=== PATIENT | male | born 1945 | race Caucasian/White ===

== ENCOUNTER → 2016-08-31 | Outpatient (CLI) | payer OTHER ==
[~2016-08-31] MED LIST: ALBUAER2 INH; ASPCH81X PO; CIPR0.3S4 OPR; CYM/30 PO; FINA5TAB PO; FURO-85 PO; GABA-113 PO; GLIM4TAB2 PO; INSDGI SC; LMC25 PO; METO25TA56 PO; ONGLYZA PO; PRAV80TA2 PO; PRED1SUS3 OPR; SERT-234 PO; SYMIN160 INH; TIOTCAP INH; [UNRECOGNIZED DRUG - OTHER]
[2016-08-31 13:50] LABS: BLOOD UREA NITROGEN 36 mg/dl (7-18); BUN/CREATININE RATIO 22.6 (10-20); CALCIUM 8.9 mg/dl (8.5-10.1); CARBON DIOXIDE 24 mmol/L (21-32); CHLORIDE 100 mmol/L (98-107); GLUCOSE 347 mg/dl (70-99); POTASSIUM 4.3 mmol/L (3.5-5.1); SODIUM 136 mmol/L (136-145)
[2016-08-31 13:59] LABS: BETA-HYDROXYBUTYRATE 0.95 mg/dL (0.2-2.81)
== END | disposition home or self-care (01) ==
LOC: C.LABMFLN 13:26
PROVIDERS: ATTEND Internal Medicine Cardiovascular Disease
DX: E11.9 Type 2 diabetes mellitus without complications (principal)

== ENCOUNTER → 2016-09-02 | Outpatient (CLI) | payer OTHER ==
[~2016-09-02] MED LIST changes: +REGADENOSON 0.4 MG/5 ML SYR ONE
== END | disposition home or self-care (01) ==
LOC: C.CTS 07:44
PROVIDERS: ATTEND Internal Medicine Cardiovascular Disease
DX: I71.2 Thoracic aortic aneurysm, without rupture (principal)

== ENCOUNTER → 2016-09-02 | Outpatient (CLI) | payer OTHER ==
[~2016-09-02] MED LIST changes: +OPTIRAY 320 IV PRN; -REGADENOSON 0.4 MG/5 ML SYR ONE
--- NOTE | 2016-09-02 11:49 | DIAGNOSTIC IMAGING REPORT ---
CT CHEST ANGIO WITH CONTRAST CT DOSE: 608.09 mGy.cm CLINICAL HISTORY: Ascending thoracic aortic aneurysm TECHNIQUE: The patient was scanned in a dynamic helical fashion during intravenous administration of 80 cc of Optiray 320. MIP imaging was performed. COMPARISON STUDY: None. FINDINGS: The thyroid was unremarkable in appearance. There are calcified mediastinal and hilar lymph nodes, likely postinflammatory. There is no evidence of pathologic axillary adenopathy. There are no pleural effusions. There are dependent atelectatic changes. There are subpleural cystic changes within the right lower lobe. There is bilateral lower lobe bronchial wall thickening, mucous plugging. There is a calcified left lower lobe granuloma. There is a 7 mm right lower lobe pulmonary nodule as visualized in image #169/361. There is a 3 mm right lower lobe pulmonary nodule as visualized on image #161/361. There is a 1 cm right lower lobe pulmonary nodule as visualized in image #155/261. There is a mixed solid and groundglass 22 mm pleural-based opacity within the right lower lobe best visualized in image #181/361. No lytic or blastic lesions are visualized. There are postsurgical changes of a midline sternotomy. There is cholelithiasis. There are coronary artery calcifications present. There is dilatation of the ascending thoracic aorta which measures 43 mm. No intimal flaps are visualized. There is subtle increased density anterior to the ascending thoracic aorta. This is not felt to represent a dissection. This is either postsurgical or related artifact. There is underlying pulmonary emphysema IMPRESSION: 1. Ascending thoracic aortic aneurysm measuring 43 mm in diameter. No dissection is visualized 2. Bilateral lower lobe bronchial wall thickening and mucous plugging 3. Multiple right lower lobe pulmonary nodules, including a 22 mm pleural-based opacity. As these may be inflammatory given the associated bronchial wall thickening and mucous plugging, a six-week follow-up CT scan subsequent to antibiotic therapy is recommended. Electronically signed by: Jayy Mckeon M.D. 09/02/2016 11:48 AM Dictated Date/Time: 09/02/2016 11:36 AM
--- NOTE | 2016-09-03 03:13 | MYOCARDIAL PERFUSION SCAN ---
PRIMARY CARE PHYSICIAN: Leandro Rodrigues MD ORDERING PHYSICIAN: Dr. Saba. TIME: 2122 p.m. PROCEDURES: 1. Myocardial perfusion study performed in multiple views/images. 2. Lexiscan ECG. INDICATIONS: 1. Multivessel coronary artery disease. 2. Dyspnea with exertion. CONSENT: Informed written consent was obtained. ELECTROCARDIOGRAM AND VITALS: Resting ECG demonstrated sinus rhythm with ventricular paced complexes. Lexiscan ECG demonstrated no significant ST changes. No arrhythmia. Maximum heart rate was 100 beats per minute, representing 66% maximum predicted heart rate. Resting blood pressure was 122/81 mmHg which was also the maximum. Minimum blood pressure was 91/67 mmHg. No significant symptoms were reported. PROCEDURAL DETAILS: For the stress portion of the study, Lexiscan 0.4 mg was intravenously administered over 10-15 seconds, followed by saline flush. This was followed by 33.2 mCi of technetium-99m Cardiolite injected intravenously at 9:15 a.m. on 09/02/2016. Thirty minutes following the injection, imaging of the heart was performed in multiple projections. For the rest portion of the study, 10.8 mCi of technetium-99m Cardiolite was injected intravenously at 7:30 a.m. on the same day. One hour following the injection, imaging of the heart was performed in the same projections. FINDINGS: Rotating raw imaging demonstrated no significant motion artifact. The heart size appeared normal. There was no significant lung uptake. Myocardial perfusion demonstrated a moderate-sized area of moderately reduced uptake involving the inferior, inferoseptal wall from base to distal LV which appeared to be fixed in post-stress and rest imaging. There was also moderately reduced uptake in the inferolateral wall from base to mid ventricle which was also fixed in post-stress and rest imaging. At the apex, there was a small area of moderately reduced uptake which was also fixed in post-stress and rest imaging. There was no significant reversible defect noted. Ejection fraction was 56%. There was no significant transient ischemic dilation. There appeared to be akinesis of the apex and hypokinesis of the inferior septum as well as inferior jeffries. IMPRESSION: 1. No significant ischemic changes suggested on pharmacologic myocardial perfusion study. 2. Study suggests prior RCA territory and apical (distal LAD) infarcts with the possibility of circumflex territory as well. These are represented by inferior, inferoseptal, inferolateral, and apical fixed defects as noted above. 3. Normal left ventricular systolic function with an ejection fraction of 56%. 4. Wall motion notable for akinesis of the apex, hypokinesis of the inferior septum and inferior wall. 5. No chest pain reported. 6. No arrhythmia. 7. Indeterminate Lexiscan ECG due to ventricular paced complexes.
== END | disposition home or self-care (01) ==
LOC: C.NUCL 06:56
PROVIDERS: ATTEND Internal Medicine Cardiovascular Disease
DX: I25.10 Atherosclerotic heart disease of native coronary artery without angina pectoris (principal); R06.00 Dyspnea, unspecified; I71.2 Thoracic aortic aneurysm, without rupture; R91.8 Other nonspecific abnormal finding of lung field

== ENCOUNTER → 2016-10-02 | Outpatient (CLI) | payer OTHER ==
--- NOTE | 2016-10-02 14:02 | DIAGNOSTIC IMAGING REPORT ---
CHEST CT WITH CONTRAST CT DOSE: 499.75 mGy.cm HISTORY: Pneumonia FOLLOW UP STUDY TECHNIQUE: Multiaxial CT images of the chest were performed following the intravenous administration of contrast. COMPARISON: 09/02/2016 FINDINGS: Considerable improvement in the appearance of the chest. Aneurysm of the a sending thoracic aorta is unchanged. Findings of a median sternotomy appear stable. Lung bases are now essentially clear with the infiltrative and nodular changes previously described essentially resolved. Minimal residual basilar atelectatic change. There is a small benign calcified granuloma left base unchanged as well. Lungs otherwise appear clear. There is no significant axillary adenopathy. IMPRESSION: 1. Chest has reverted to a near normal appearance. 2. Basilar atelectatic, infiltrative, and nodular changes have shown near complete resolution. 3. Lungs otherwise appear clear. 4. Stable mild aneurysmal distention a sending thoracic aorta. Electronically signed by: Jarocho Nickerson M.D. 10/02/2016 2:01 PM Dictated Date/Time: 10/02/2016 1:56 PM
== END | disposition home or self-care (01) ==
LOC: C.CTS 12:50
PROVIDERS: ATTEND Family Medicine
DX: J18.9 Pneumonia, unspecified organism (principal); R91.8 Other nonspecific abnormal finding of lung field

== ENCOUNTER → 2016-10-07 | Outpatient (CLI) | payer OTHER ==
[~2016-10-07] MED LIST changes: -OPTIRAY 320 IV PRN
[2016-10-07 14:14] LABS: BASO % 0.3 %; BASO ABS # 0.04 K/uL (0-0.2); COMPLETE YES; EOS % 0.4 %; IG% 0.3 %; LYMPH % 14.8 %; LYMPH ABS # 2.35 K/uL (1.2-3.4); MEAN CELL VOLUME 94.1 fL (80-100); MEAN CORPUSCULAR HEMOGLOBIN 32.7 pg (25-34); MEAN CORPUSCULAR HGB CONC 34.7 g/dl (32-36); MEAN PLATELET VOLUME 12.4 fL (7.4-10.4); MONO % 8.6 %; NEUT % 75.6 %; PLATELET COUNT 268 K/uL (130-400); RED BLOOD COUNT 4.04 M/uL (4.7-6.1); WHITE BLOOD COUNT 15.86 K/uL (4.8-10.8)
[2016-10-07 14:54] LABS: ALT/SGPT 44 U/L (12-78); BLOOD UREA NITROGEN 28 mg/dl (7-18); BUN/CREATININE RATIO 19.6 (10-20); CALCIUM 9.5 mg/dl (8.5-10.1); CARBON DIOXIDE 26 mmol/L (21-32); CHLORIDE 103 mmol/L (98-107); GLUCOSE 169 mg/dl (70-99); POTASSIUM 4.8 mmol/L (3.5-5.1); SODIUM 137 mmol/L (136-145)
[2016-10-07 15:07] LABS: ALKALINE PHOSPHATASE 98 U/L (45-117); AST/SGOT 29 U/L (15-37); TOTAL IRON BINDING CAPACITY 322 mcg/dl (250-450)
[2016-10-07 15:23] LABS: LYME DISEASE AB IGG NEG (NEG); LYME DISEASE AB IGM NEG (NEG)
[2016-10-07 16:01] LABS: ESTIMATED AVERAGE GLUCOSE 209 mg/dl; HA1C FLAG Normal (Normal)
== END | disposition home or self-care (01) ==
LOC: C.LAB1850 12:04
PROVIDERS: ATTEND Family Medicine
DX: E83.119 Hemochromatosis, unspecified (principal); E11.9 Type 2 diabetes mellitus without complications; D64.9 Anemia, unspecified; D72.829 Elevated white blood cell count, unspecified; R41.3 Other amnesia

== ENCOUNTER → 2016-10-30 | Outpatient (CLI) | payer OTHER ==
--- NOTE | 2016-10-30 09:59 | DIAGNOSTIC IMAGING REPORT ---
CT HEAD WITHOUT CONTRAST (CT) CLINICAL HISTORY: F09 Mild cognitive [id number] Cerebrovascular [id number] COMPARISON STUDY: 10/10/2015 TECHNIQUE: Axial CT of the brain is performed from the vertex to the skull base. IV contrast was not administered for this examination. CT DOSE: 687.98 mGy.cm FINDINGS: No intra or extra-axial mass lesions are visualized. There is no CT evidence of acute cortical infarction. There is no evidence of midline shift. There is no acute hemorrhage. No calvarial fractures are visualized. There are minimal white matter hypodensities likely on a small vessel basis. There is no evidence of pathologic ventricular dilatation. There is chronic mucosal disease involving the sphenoid. IMPRESSION: No acute intracranial findings Electronically signed by: Jayy Mckeon M.D. 10/30/2016 9:58 AM Dictated Date/Time: 10/30/2016 9:57 AM
--- NOTE | 2016-10-30 10:35 | DIAGNOSTIC IMAGING REPORT ---
ULTRASOUND OF THE CAROTID ARTERIES CLINICAL HISTORY: I67.9,HX TIA TRANSIENT ISCHEMIC ATTACK COMPARISON STUDY: None. TECHNIQUE: Real-time, grayscale, and color Doppler sonography of the carotid arteries was performed. Imaging reviewed in the transverse and longitudinal planes. NASCET criteria was utilized for stenosis calcification. FINDINGS: There is moderate calcific shadowing atherosclerotic plaque present bilaterally. The peak systolic velocity within the right internal carotid artery is 82 cm/sec. The systolic velocity ratio of right internal to common carotid artery is 1.1. The peak systolic velocity within the left internal carotid artery is 73 cm/sec. The systolic velocity ratio left internal to common carotid artery is 0.8. Antegrade flow is seen in the vertebral arteries. The external carotid arteries are patent. Blood pressure in the right arm measured 127 mm/Hg. Blood pressure in the left arm measured 123 mm/Hg. IMPRESSION: Moderate atheromatous change. No evidence of hemodynamically significant carotid stenosis. Electronically signed by: Jayy Mckeon M.D. 10/30/2016 10:33 AM Dictated Date/Time: 10/30/2016 10:32 AM
== END | disposition home or self-care (01) ==
LOC: C.CTS 09:28
PROVIDERS: ATTEND Psychiatry & Neurology Neurology
DX: I65.23 Occlusion and stenosis of bilateral carotid arteries (principal); F09 Unspecified mental disorder due to known physiological condition; Z86.73 Personal history of transient ischemic attack (TIA), and cerebral infarction without residual deficits

== ENCOUNTER → 2017-01-11 | Outpatient (CLI) | payer OTHER ==
[2017-01-13 06:48] LABS: ALBUMIN 4.3 G/DL (3.8-4.8); ALBUMIN % 36.62 %; ALPHA-2-GLOBULIN % 14.14 %; BETA GLOBULIN % 24.57 %; CREATININE UR 117 MG/DL (20-370); GAMMA GLOBULIN 1.6 G/DL (0.8-1.7); GAMMA GLOBULIN % 24.02 %; TOTAL PROTEIN 7.8 G/DL (6.2-8.3)
== END | disposition home or self-care (01) ==
LOC: C.LABMFLN 08:45
PROVIDERS: ATTEND Family Medicine
DX: E88.09 Other disorders of plasma-protein metabolism, not elsewhere classified (principal)

== ENCOUNTER → 2017-03-26 | Outpatient (CLI) | payer OTHER ==
[2017-03-26 13:20] LABS: BASO % 0.5 %; BASO ABS # 0.06 K/uL (0-0.2); COMPLETE YES; EOS % 1.5 %; IG% 0.3 %; LYMPH % 17.6 %; LYMPH ABS # 2.14 K/uL (1.2-3.4); MEAN CELL VOLUME 96.4 fL (80-100); MEAN CORPUSCULAR HGB CONC 33.1 g/dl (32-36); MEAN PLATELET VOLUME 11.9 fL (7.4-10.4); MONO % 11.8 %; NEUT % 68.3 %; PLATELET COUNT 280 K/uL (130-400); RED BLOOD COUNT 3.63 M/uL (4.7-6.1); WHITE BLOOD COUNT 12.15 K/uL (4.8-10.8)
[2017-03-26 13:34] LABS: ESTIMATED AVERAGE GLUCOSE 200 mg/dl; HA1C FLAG Normal (Normal)
[2017-03-26 13:40] LABS: ALT/SGPT 36 U/L (12-78); AST/SGOT 27 U/L (15-37); BLOOD UREA NITROGEN 34 mg/dl (7-18); BUN/CREATININE RATIO 24.4 (10-20); CALCIUM 8.4 mg/dl (8.5-10.1); CARBON DIOXIDE 25 mmol/L (21-32); CHLORIDE 106 mmol/L (98-107); GLUCOSE 141 mg/dl (70-99); POTASSIUM 4.4 mmol/L (3.5-5.1); SODIUM 139 mmol/L (136-145)
[2017-03-26 13:44] LABS: ALKALINE PHOSPHATASE 103 U/L (45-117); CHOLESTEROL 109 mg/dl (0-200); CHOLESTEROL/HDL RATIO 2.2; HDL CHOLESTEROL 49 mg/dl; LDL CHOLESTEROL CALCULATED 44 mg/dl; TRIGLYCERIDES 81 mg/dl (0-150); VERY LOW DENSITY LIPOPROT CALC 16 mg/dl
== END | disposition home or self-care (01) ==
LOC: C.LABMFLN 06:46
PROVIDERS: ATTEND Family Medicine
DX: I25.10 Atherosclerotic heart disease of native coronary artery without angina pectoris (principal); E11.9 Type 2 diabetes mellitus without complications

== ENCOUNTER → 2017-08-06 | Outpatient (CLI) | payer OTHER ==
[2017-08-06 12:53] LABS: BASO % 0.6 %; BASO ABS # 0.07 K/uL (0-0.2); EOS % 2.7 %; EOS ABS # 0.29 K/uL (0-0.5); HEMATOCRIT 35.9 % (42-52); HEMOGLOBIN 11.7 g/dL (14.0-18.0); IG# 0.03 K/uL (0.00-0.02); LYMPH % 29.5 %; MEAN CELL VOLUME 99.2 fL (80-100); MEAN CORPUSCULAR HEMOGLOBIN 32.3 pg (25-34); MEAN CORPUSCULAR HGB CONC 32.6 g/dl (32-36); MEAN PLATELET VOLUME 11.2 fL (7.4-10.4); MONO % 12.1 %; MONO ABS # 1.31 K/uL (0.11-0.59); NEUT % 54.8 %; NEUT ABS # 5.93 K/uL (1.4-6.5); NUCLEATED RED BLOOD CELL ABS 0.04 K/uL (0-0); PLATELET COUNT 260 K/uL (130-400); RED CELL DISTRIBUTION WIDTH CV 18.7 % (11.5-14.5); RED CELL DISTRIBUTION WIDTH SD 68.3 fL (36.4-46.3); WHITE BLOOD COUNT 10.83 K/uL (4.8-10.8)
[2017-08-06 13:01] LABS: HEMOGLOBIN A1C 8.4 % (4.5-5.6)
[2017-08-06 13:26] LABS: ALBUMIN 4.3 gm/dl (3.4-5.0); ALT/SGPT 42 U/L (12-78); BLOOD UREA NITROGEN 31 mg/dl (7-18); CALCIUM 8.9 mg/dl (8.5-10.1); CHOLESTEROL 101 mg/dl (0-200); CREATININE 1.41 mg/dl (0.60-1.40); GLUCOSE 144 mg/dl (70-99); POTASSIUM 4.6 mmol/L (3.5-5.1); SODIUM 138 mmol/L (136-145)
[2017-08-06 13:27] LABS: AST/SGOT 29 U/L (15-37)
[2017-08-06 13:30] LABS: ALKALINE PHOSPHATASE 114 U/L (45-117); CARBON DIOXIDE 26 mmol/L (21-32); LDL CHOLESTEROL CALCULATED 24 mg/dl; TOTAL PROTEIN 8.2 gm/dl (6.4-8.2)
== END | disposition home or self-care (01) ==
LOC: C.LABMFLN 06:55
PROVIDERS: ATTEND Family Medicine
DX: E78.5 Hyperlipidemia, unspecified (principal); E11.9 Type 2 diabetes mellitus without complications; I10 Essential (primary) hypertension; I25.10 Atherosclerotic heart disease of native coronary artery without angina pectoris

== ENCOUNTER → 2017-09-10 | Outpatient (CLI) | payer OTHER ==
[2017-09-10 12:31] LABS: BASO % 0.8 %; BASO ABS # 0.11 K/uL (0-0.2); EOS % 1.2 %; EOS ABS # 0.18 K/uL (0-0.5); HEMATOCRIT 38.4 % (42-52); HEMOGLOBIN 12.6 g/dL (14.0-18.0); IG# 0.04 K/uL (0.00-0.02); LYMPH ABS # 2.47 K/uL (1.2-3.4); MEAN CELL VOLUME 98.7 fL (80-100); MEAN CORPUSCULAR HEMOGLOBIN 32.4 pg (25-34); MEAN CORPUSCULAR HGB CONC 32.8 g/dl (32-36); MONO % 9.3 %; MONO ABS # 1.35 K/uL (0.11-0.59); NEUT % 71.4 %; NEUT ABS # 10.38 K/uL (1.4-6.5); NUCLEATED RED BLOOD CELL ABS 0.11 K/uL (0-0); PLATELET COUNT 334 K/uL (130-400); RED CELL DISTRIBUTION WIDTH CV 18.7 % (11.5-14.5); RED CELL DISTRIBUTION WIDTH SD 67.1 fL (36.4-46.3); WHITE BLOOD COUNT 14.53 K/uL (4.8-10.8)
[2017-09-10 13:16] LABS: BLOOD UREA NITROGEN 33 mg/dl (7-18)
== END | disposition home or self-care (01) ==
LOC: C.LABMFLN 08:41
PROVIDERS: ATTEND Family Medicine
DX: R61 Generalized hyperhidrosis (principal); I25.10 Atherosclerotic heart disease of native coronary artery without angina pectoris

== ENCOUNTER → 2017-10-04 | Outpatient (CLI) | payer OTHER ==
[~2017-10-04] MED LIST changes: +OPTIRAY 320 IV PRN
--- NOTE | 2017-10-04 10:11 | DIAGNOSTIC IMAGING REPORT ---
CHEST COMBO ANGIOGRAPHY CT DOSE: 1363.64 mGy.cm HISTORY: 72 years-old Male follow-up study in a patient with a minimal dilation of the descending thoracic aorta TECHNIQUE: Multiple CTA images of the chest were obtained both with and without the use of 116 ml Optiray 320. Coronal and sagittal MIPS were obtained from the axial data set and were submitted for review. A dose lowering technique was utilized adhering to the principles of ALARA. COMPARISON: CT chest 10/02/2016. FINDINGS: CTA: Moderate multichamber dilation of the heart with coronary arterial disease. Left pectoral pacer/AICD is noted with leads overlying the right atrium and right ventricle. Prior median sternotomy and CABG. Prosthetic aortic valve is also noted. Mild fusiform aneurysm dilation of the a sending thoracic aorta beginning distally to the sinotubular junction is redemonstrated measuring 4.3 x 4.3 cm, previously 4.3 x 4.3 cm. Moderate to extensive mixed plaquing is noted involving the thoracic aorta and proximal great vessels. The imaged great vessels appear to be patent. No thoracic dissection. There is no intramural hematoma identified on the noncontrast scan. Atherosclerotic plaquing at the origin of the celiac trunk causes 60% luminal narrowing, nicely seen on the coronal images. There is approximately 50% narrowing at the origin of the superior mesenteric artery. The opacified pulmonary arterial tree is unremarkable without evidence of pulmonary thromboembolic disease. CT CHEST: Mildly heterogeneous appearance of the thyroid without dominant thyroid nodule identified. Calcified mediastinal and hilar lymph nodes are compatible with prior granulomatous disease. Nonspecific mildly prominent left paratracheal lymph nodes measure up to 9 mm with an enlarged 12 mm subcarinal lymph node. Unchanged and likely reactive. There is no pneumothorax or pleural effusion. Mild subsegmental dependent bibasilar atelectasis. Mild subpleural cystic changes are noted within the lung bases and lung apices with mild centrilobular and paraseptal emphysematous changes of the lung apices. 10 x 6 mm ill-defined groundglass nodule of the lingula is seen on image 136 series 7 which appears to be new from prior study. Subpleural reticular opacities are noted bilaterally multilobar distribution suggesting areas of pleural-parenchymal scarring. Ill-defined 7 mm groundglass opacity is seen within left lower lobe on image 178 series 7. There is a calcified granuloma of the left lower lobe. Bibasilar bronchial wall thickening is noted with mild mucoid impaction of the right lower lobe. Scattered bronchovascular distribution of groundglass opacities are present within the basal right lower lobe. No lobar airspace consolidations identified. The central airways are patent. Partially imaged cholelithiasis. Fatty infiltration of the liver. No acute abnormality of the imaged upper abdomen. Mild bilateral gynecomastia. Bones appear intact. IMPRESSION: 1. Unchanged size and appearance of the fusiform aneurysmal dilation involving the ascending thoracic aorta, distal to the sinotubular junction measuring 4.3 x 4.3 cm. No aortic dissection or intramural hematoma. 2. Cardiomegaly with prior median sternotomy and CABG with prosthetic aortic valve. 3. Prior granulomatous disease. 4. Mild emphysema with bibasilar bronchial wall thickening and mild mucoid impaction is noted with a few subtle areas of patchy bibasilar groundglass opacities suggesting mild pneumonitis. Focal 10 mm groundglass opacity is noted within the lingula. Follow-up guidelines are below. 5. Cholelithiasis. Please refer to below summary of Fleischner criteria recommendations for follow-up of incidental CT nodules (Farideh Crump, Guidelines for management of small pulmonary nodules detected on CT scans: A statement from the Fleischner Society, Radiology 237: [phone].) Note: newly detected indeterminate nodule in persons 35 years of age or older. * Low risk patients: minimal or absent history of smoking and/or other known risk factors * high risk patients: history of smoking or of other known risk factors (e.g. first degree relative with lung cancer, or exposure to asbestos, radon, uranium) * if a nodule up to 8 mm is partly solid or is ground glass further follow-up is required after 24 months to exclude possible slow growing adenocarcinoma (ANTONY) SUBSOLID NODULES Multiple subsolid nodules * nodule size <6 mm - follow-up CT at 3-6 months, consider further follow-up at 2 and 4 years if stable * nodule size >=6 mm - follow-up CT at 3-6 months, subsequent management based on the most suspicious nodule(s) The above report was generated using voice recognition software. It may contain grammatical, syntax or spelling errors. Electronically signed by: Eliazar Wheeler M.D. 10/04/2017 10:10 AM Dictated Date/Time: 10/04/2017 9:55 AM
== END | disposition home or self-care (01) ==
LOC: C.CTS 09:31
PROVIDERS: ATTEND Internal Medicine Cardiovascular Disease
DX: I71.2 Thoracic aortic aneurysm, without rupture (principal); I51.7 Cardiomegaly; K80.20 Calculus of gallbladder without cholecystitis without obstruction

== ENCOUNTER → 2017-10-06 | Outpatient (CLI) | payer OTHER ==
--- NOTE | 2017-10-06 14:21 | DIAGNOSTIC IMAGING REPORT ---
ABD/PELVIS IV AND ORAL CONT CT DOSE: 836.02 mGy.cm HISTORY: Pain LEUKOCYTOSIS TECHNIQUE: Multiaxial CT images of the abdomen and pelvis were performed following the use of intravenous and oral contrast. A dose lowering technique was utilized adhering to the principles of ALARA. COMPARISON STUDY: None. FINDINGS: Minimal dependent bibasilar atelectatic change. Liver enhances uniformly. Several small gallstones are noted. Pancreas is unremarkable throughout. The adrenal glands are normal. Kidneys enhance uniformly. 1.5 cm cyst interpolar region left kidney. Bowel pattern is considered nonobstructive. No significant bowel wall thickening or pneumatosis. The appendix is normal. Bladder is midline. There are no contained calcifications. There is no free fluid within pelvic cul-de-sac. IMPRESSION: 1. Small left renal cyst. 2. Several small gallstones. 3. Otherwise negative abdomen and pelvis. The above report was generated using voice recognition software. It may contain grammatical, syntax or spelling errors. Electronically signed by: Jarocho Nickerson M.D. 10/06/2017 2:20 PM Dictated Date/Time: 10/06/2017 2:15 PM
== END | disposition home or self-care (01) ==
LOC: C.CTS 13:19
PROVIDERS: ATTEND Internal Medicine Hematology & Oncology
DX: D72.829 Elevated white blood cell count, unspecified (principal); R61 Generalized hyperhidrosis; N28.1 Cyst of kidney, acquired; K80.20 Calculus of gallbladder without cholecystitis without obstruction

== ENCOUNTER → 2017-12-15 | Outpatient (CLI) | payer OTHER ==
[~2017-12-15] MED LIST changes: -OPTIRAY 320 IV PRN
[2017-12-15 12:30] LABS: BASO % 0.4 %; BASO ABS # 0.04 K/uL (0-0.2); EOS % 1.4 %; EOS ABS # 0.16 K/uL (0-0.5); HEMATOCRIT 33.7 % (42-52); HEMOGLOBIN 11.1 g/dL (14.0-18.0); IG# 0.03 K/uL (0.00-0.02); LYMPH % 21.2 %; LYMPH ABS # 2.38 K/uL (1.2-3.4); MEAN CELL VOLUME 98.8 fL (80-100); MEAN CORPUSCULAR HEMOGLOBIN 32.6 pg (25-34); MEAN CORPUSCULAR HGB CONC 32.9 g/dl (32-36); MEAN PLATELET VOLUME 11.1 fL (7.4-10.4); MONO % 10.9 %; MONO ABS # 1.22 K/uL (0.11-0.59); NEUT % 65.8 %; PLATELET COUNT 284 K/uL (130-400); RED CELL DISTRIBUTION WIDTH CV 19.4 % (11.5-14.5); RED CELL DISTRIBUTION WIDTH SD 70.6 fL (36.4-46.3); WHITE BLOOD COUNT 11.23 K/uL (4.8-10.8)
[2017-12-15 12:56] LABS: ALBUMIN 4.1 gm/dl (3.4-5.0); BLOOD UREA NITROGEN 34 mg/dl (7-18); CALCIUM 8.8 mg/dl (8.5-10.1); CARBON DIOXIDE 27 mmol/L (21-32); CREATININE 1.49 mg/dl (0.60-1.40); GLUCOSE 118 mg/dl (70-99); POTASSIUM 4.9 mmol/L (3.5-5.1); SODIUM 138 mmol/L (136-145)
[2017-12-15 13:05] LABS: ALKALINE PHOSPHATASE 105 U/L (45-117); ALT/SGPT 38 U/L (12-78); AST/SGOT 37 U/L (15-37); CHOLESTEROL 96 mg/dl (0-200); LDL CHOLESTEROL CALCULATED 27 mg/dl; TOTAL PROTEIN 7.8 gm/dl (6.4-8.2); TRANSFERRIN 237 mg/dl (200-360)
[2017-12-15 13:28] LABS: HEMOGLOBIN A1C 8.6 % (4.5-5.6)
== END | disposition home or self-care (01) ==
LOC: C.LABMFLN 08:46
PROVIDERS: ATTEND Family Medicine
DX: D64.9 Anemia, unspecified (principal); N28.9 Disorder of kidney and ureter, unspecified; E11.65 Type 2 diabetes mellitus with hyperglycemia; I25.10 Atherosclerotic heart disease of native coronary artery without angina pectoris; E78.5 Hyperlipidemia, unspecified; D72.829 Elevated white blood cell count, unspecified

== ENCOUNTER → 2018-03-21 | Outpatient (CLI) | payer OTHER ==
[2018-03-21 12:41] LABS: BASO % 0.4 %; BASO ABS # 0.06 K/uL (0-0.2); EOS % 0.9 %; EOS ABS # 0.14 K/uL (0-0.5); HEMOGLOBIN 11.4 g/dL (14.0-18.0); IG# 0.05 K/uL (0.00-0.02); LYMPH % 10.1 %; LYMPH ABS # 1.63 K/uL (1.2-3.4); MEAN CORPUSCULAR HEMOGLOBIN 32.9 pg (25-34); MEAN CORPUSCULAR HGB CONC 33.5 g/dl (32-36); MEAN PLATELET VOLUME 11.4 fL (7.4-10.4); MONO % 7.2 %; MONO ABS # 1.16 K/uL (0.11-0.59); NEUT % 81.1 %; NEUT ABS # 13.06 K/uL (1.4-6.5); NUCLEATED RED BLOOD CELL ABS 0.04 K/uL (0-0); PLATELET COUNT 273 K/uL (130-400); RED CELL DISTRIBUTION WIDTH CV 19.2 % (11.5-14.5)
[2018-03-21 13:12] LABS: HEMOGLOBIN A1C 8.5 % (4.5-5.6)
[2018-03-21 13:17] LABS: BLOOD UREA NITROGEN 28 mg/dl (7-18); CALCIUM 8.5 mg/dl (8.5-10.1); CARBON DIOXIDE 27 mmol/L (21-32); GLUCOSE 284 mg/dl (70-99); POTASSIUM 4.7 mmol/L (3.5-5.1); SODIUM 134 mmol/L (136-145)
== END | disposition home or self-care (01) ==
LOC: C.LABMFLN 09:53
PROVIDERS: ATTEND Family Medicine
DX: Z12.5 Encounter for screening for malignant neoplasm of prostate (principal); E11.65 Type 2 diabetes mellitus with hyperglycemia; D72.829 Elevated white blood cell count, unspecified

== ENCOUNTER → 2018-03-29 | Outpatient (CLI) | payer OTHER ==
--- NOTE | 2018-03-29 11:56 | DIAGNOSTIC IMAGING REPORT ---
EXAMINATION: RENAL ULTRASOUND CLINICAL HISTORY: N28.9 Renal insufficiency N40.0 BPH (benign prostatic hyperplasia COMPARISON STUDY: CT scan performed September 2017 FINDINGS: The right kidney measures 10.3 cm. The left kidney measures 11.3 cm. There is no evidence of hydronephrosis. There are no renal masses. There is a small echogenic focus within the right kidney. This could indicate a tiny calculus or vascular reflector. There is a septated 18 mm lower pole left renal cyst. There is an equivocal punctate left renal calculus. No bladder abnormalities are visualized. Bilateral ureteral jets were visualized. There is a sludge-filled gallbladder. IMPRESSION : 1. Symmetric renal size and cortical thickness 2. No evidence of hydronephrosis 3. Septated 8 mm lower pole left renal cyst 4. Sludge-filled gallbladder Electronically signed by: Jayy Mckeon M.D. 03/29/2018 11:55 AM Dictated Date/Time: 03/29/2018 11:52 AM
== END | disposition home or self-care (01) ==
LOC: C.ULTR 10:46
PROVIDERS: ATTEND Family Medicine
DX: N40.0 Benign prostatic hyperplasia without lower urinary tract symptoms (principal); N28.1 Cyst of kidney, acquired

== ENCOUNTER 2018-10-21 22:36 | Inpatient (IN) ==
--- NOTE | 2018-10-21 23:15 | XRay Report ---
SINGLE VIEW CHEST CLINICAL HISTORY: Atypical chest pain. FINDINGS: An AP, portable, upright chest radiograph is correlated with chest CT dated 10/04/2017. The examination is degraded by portable technique and patient rotation. A 2-lead cardiac pacemaker is unc hanged in position and partially obscures the left upper chest. The patient is status post midline st ernotomy. The heart is enlarged and there is atherosclerotic calcification of the thoracic aorta. The pulmonary vasculature is noncongested. There is mild elevation of the left hemidiaphragm and bibasil ar atelectasis. No airspace consolidation or large pleural effusion is identified. Scattered calcifie d granulomas are similar to previous. No pneumothorax is seen. The skeletal structures are osteopenic . The bony thorax is grossly intact. IMPRESSION: 1. Cardiomegaly and cardiac pacemaker. There is no radiographic evidence of congestive failure. 2. No airspace consolidation or pleural effusion is identified. Electronically signed by: Leandro Napier M.D. 10/21/2018 11:14 PM
[2018-10-21 23:42] LABS: Basophils # (auto) 0.06 K/uL (0-0.2); Basophils % (auto) 0.3 %; Eosinophils % (auto) 0.5 %; Hematocrit (blood only) 32.1 % (42-52); Hemoglobin 10.6 g/dL (14.0-18.0); Immature Granulocytes # (auto) 0.06 K/uL (0.00-0.02); Immature Granulocytes % (auto) 0.3 %; Lymphocytes # (auto) 1.47 K/uL (1.2-3.4); Lymphocytes % (auto) 7.9 %; Mean Corpuscular Volume 96.1 fL (80-100); Mean Platelet Volume 10.7 fL (7.4-10.4); Monocytes # (auto) 0.96 K/uL (0.11-0.59); Monocytes % (auto) 5.2 %; Neutrophils # (auto) 15.97 K/uL (1.4-6.5); Neutrophils % (auto) 85.8 %; Platelet Count 252 K/uL (130-400); RDW Coefficient of Variation 18.8 % (11.5-14.5); RDW Standard Deviation 66.1 fL (36.4-46.3); Red Blood Count 3.34 M/uL (4.7-6.1); White Blood Count 18.62 K/uL (4.8-10.8)
[2018-10-22 00:01] LABS: Alanine Aminotransferase 96 U/L (12-78); Albumin Level 3.6 gm/dl (3.4-5.0); Aspartate Aminotransferase 128 U/L (15-37); BUN Creatinine Ratio 16.7 (10-20); Blood Urea Nitrogen 28 mg/dl (7-18); Carbon Dioxide 27 mmol/L (21-32); Chloride 105 mmol/L (98-107); Creatinine Clr Calc Pharmacy 45.8 ml/min; Est GFR (Non-African American) 39.7; Glucose 258 mg/dl (70-99); Potassium 4.7 mmol/L (3.5-5.1); Sodium 139 mmol/L (136-145)
[2018-10-22 00:03] LABS: Partial Thromboplastin Ratio 0.8; Partial Thromboplastin Time 22.3 Seconds (21.0-31.0); Prothrombin Time 10.7 Seconds (9.0-12.0)
[2018-10-22 00:06] LABS: Albumin Globulin Ratio 0.9 (0.9-2); Alkaline Phosphatase 123 U/L (45-117); Bilirubin,Total 1.2 mg/dl (0.2-1); Creatine Kinase 78 U/L (39-308); Creatine Kinase MB 1.5 ng/ml (0.5-3.6); Globulin 3.8 gm/dl (2.5-4.0); Total Protein 7.4 gm/dl (6.4-8.2); Troponin I < 0.015 ng/ml (0-0.045)
--- NOTE | 2018-10-22 00:15 | Emergency Department Note ---
Entered by Marychuy Pérez acting as a scribe for Dawson Mota DO History of Present Illness General Chief complaint: Chest Pain Stated complaint: CHEST PAIN Time Seen by Provider: 10/21/18 22:54 Source: patient and family Mode of arrival: EMS Limitations: no limitations History of Present Illness Onset (ago): hour(s) 2 Location: chest Radiation: non-radiation Pain Consistency: + now resolved Maximum Pain Intensity: 0 Current Pain Intensity: 7 Relieved By: + medication Exacerbated By: + none Associated symptoms: + diaphoresis; no shortness of breath Treatments prior to arrival: aspirin and other (Nitroglycerin) The patient is a 73 year old male who presents to the Emergency Room with complaints of chest pain. He rates his discomfort as a 7/10 in severity and states it felt like "heartburn". He called EMS and was given Nitro and 4 Aspirin in the field, which provided minimal relief. His notes he was diaphoretic when the pain started. He notes the pain resolved upon arrival to the ED. He admits to chronic breathing issues but does not think it was worse than usual this evening. The patient has a history of a previous AK, and notes he has [address] His Therapeutic Recreation Director is Dr. Saba with [facility]. He notes during his previous AK, he experienced jaw pain, but did also have heart burn in the days leading up to the episode. Home Medications Home Medications Medication Instructions Recorded Confirmed Type acetaminophen [Tylenol] 325 mg PO DIRECTED PRN 10/21/18 10/21/18 History albuterol sulfate [Proventil HFA] 2 puff INHALATION QID PRN 10/21/18 10/21/18 History aspirin 0.5 mg PO DAILY 10/21/18 10/21/18 History budesonide-formoterol [Symbicort] 2 puff INHALATION BID 10/21/18 10/22/18 History clindamycin HCl 600 mg PO DIRECTED 10/21/18 10/21/18 History epinephrine [EpiPen] 0.3 mg IM Q3H PRN 10/21/18 10/21/18 History finasteride 5 mg PO DAILY 10/21/18 10/21/18 History metoprolol tartrate 12.5 mg PO BID 10/21/18 10/21/18 History nitroglycerin [Nitrostat] 0.4 mg SUBLINGUAL DIRECTED PRN 10/21/18 10/21/18 History atorvastatin [Lipitor] 40 mg PO HS 10/22/18 10/22/18 History buspirone 30 mg PO TID 10/22/18 10/22/18 History donepezil 10 mg PO DAILY 10/22/18 10/22/18 History duloxetine 60 mg PO DAILY 10/22/18 10/22/18 History furosemide [Lasix] 20 mg PO DAILY 10/22/18 10/22/18 History gabapentin 300 mg PO QID 10/22/18 10/22/18 History glimepiride 4 mg PO BID 10/22/18 10/22/18 History hydrocortisone 1 applic TOPICAL HS PRN 10/22/18 10/22/18 History insulin glargine [Lantus Solostar 24 unit SUBCUT QAM 10/22/18 10/22/18 History U-100 Insulin] insulin glargine [Lantus Solostar 26 unit SUBCUT QPM 10/22/18 10/22/18 History U-100 Insulin] lamotrigine 200 mg PO HS 10/22/18 10/22/18 History memantine 5 mg PO BID 10/22/18 10/22/18 History paroxetine HCl 20 mg PO DAILY 10/22/18 10/22/18 History saxagliptin [Onglyza] 5 mg PO DAILY 10/22/18 10/22/18 History sildenafil 20 mg PO DIRECTED 10/22/18 10/22/18 History tiotropium bromide [Spiriva with 1 cap INHALATION DAILY 10/22/18 10/22/18 History HandiHaler] Allergies Allergy/AdvReac Type Severity Reaction Status Date / Time bee venom protein (honey bee) Allergy Unknown SWELLING Verified 10/21/18 23:50 codeine Allergy Unknown HALLUCINATI Verified 10/21/18 23:50 NG Penicillins Allergy Unknown UNKNOWN Verified 10/21/18 23:50 Sulfa (Sulfonamide Allergy Unknown "SULFA": Verified 10/21/18 23:50 Antibiotics) RASH Past Med/Surg History Medical History Myocardial infarction Pacemaker Diabetes mellitus COPD exacerbation Social History Feels Safe at Home: Yes Smoking Status: Former smoker Review of Systems See HPI for pertinent positives & negatives. and A total of 10 systems reviewed and were otherwise negative Physical Exam Vital Signs Vital Signs - 24 hr 10/21/18 22:43 Temperature 36.7 C Temperature Source Oral Sepsis Recent Fever Within 48 Hours No Sepsis New/Unexplained Change in Mental Status No Sepsis Action Taken by Nursing No Action Required Pulse Rate 96 H Pulse Rate [Finger] 96 H Respiratory Rate 16 Blood Pressure 111/67 Blood Pressure [Right Arm] 111/67 Blood Pressure Mean 81 Blood Pressure Mean [Right Arm] 81 Pulse Oximetry 94 Oxygen Delivery Method Room Air CONSTITUTIONAL/VITAL SIGNS: Reviewed / noted above. GENERAL: Non-toxic in appearance. INTEGUMENTARY: Warm, dry, and [place]. HEAD: Normocephalic. EYES: without scleral icterus or trauma. ENT/OROPHARYNX: clear and moist. LYMPHADENOPATHY/NECK: Is supple without lymphadenopathy or meningismus. RESPIRATORY: Lungs clear and equal. CARDIOVASCULAR: Regular rate and rhythm. GI/ABDOMEN: Soft and nontender. No organomegaly or pulsatile mass. No rebound or guarding. Normal bowel sounds. EXTREMITIES: Warm and well perfused. BACK: No CVA tenderness. NEUROLOGICAL: Intact without focal deficits. PSYCHIATRIC: normal affect. MUSCULOSKELETAL: Normally developed with good muscle tone. Course 2257: Past medical records reviewed. The patient was evaluated in room A11, and a complete history and physical examination were performed. 0009: I discussed the patients case with Becca Loomis [place] [facility]ist. The patient will be further evaluated. Consultations Consultation #1: I [facility] the [facility] The patient will be further evaluated. Time: 00:09 Medical Decision Making Differential Diagnosis Differential diagnoses includes but is not limited to acute coronary syndrome, myocardial infarction, pericarditis, pulmonary embolus, aortic dissection, pneumonia, pneumothorax, musculoskeletal, shingles, esophageal. Medical Records Attestation: I reviewed the patient's medical records. Home Medications Current Medication List: was personally reviewed by me Laboratory Data Attestation: I reviewed the patient's lab results. Result diagrams: 10/21/18 23:30 10/21/18 23:30 Lab Results 10/21/18 10/21/18 10/21/18 Range/Units 23:30 23:30 23:30 WBC 18.62 H (4.8-10.8) K/uL RBC 3.34 L (4.7-6.1) M/uL Hgb 10.6 L (14.0-18.0) g/dL Hct 32.1 L (42-52) % MCV 96.1 (80-100) fL MCH 31.7 (25-34) pg MCHC 33.0 (32-36) g/dL RDW Std Deviation 66.1 H (36.4-46.3) fL RDW Coeff of Linda 18.8 H (11.5-14.5) % Plt Count 252 (130-400) K/uL MPV 10.7 H (7.4-10.4) fL Immature Gran % (Auto) 0.3 % Neut % (Auto) 85.8 % Lymph % (Auto) 7.9 % [place] % (Auto) 5.2 % Eos % (Auto) 0.5 % Baso % (Auto) 0.3 % Immature Gran # (Auto) 0.06 H (0.00-0.02) K/uL Neut # (Auto) 15.97 H (1.4-6.5) K/uL Lymph # (Auto) 1.47 (1.2-3.4) K/uL [place] # (Auto) 0.96 H (0.11-0.59) K/uL Eos # (Auto) 0.10 (0-0.5) K/uL Baso # (Auto) 0.06 (0-0.2) K/uL PT 10.7 (9.0-12.0) Seconds INR 1.0 (0.9-1.1) APTT 22.3 (21.0-31.0) Seconds PTT Ratio 0.8 Sodium 139 (136-145) mmol/L Potassium 4.7 (3.5-5.1) mmol/L Chloride 105 (98-107) mmol/L Carbon Dioxide 27 (21-32) mmol/L Anion Gap 7.0 (3-11) BUN 28 H (7-18) mg/dl Creatinine 1.69 H (0.6-1.4) mg/dl Est Cr Clr Drug Dosing 45.8 ml/min Est GFR ( Amer) 46.0 Est GFR (Non-Af Amer) 39.7 BUN/Creatinine Ratio 16.7 (10-20) Glucose 258 H (70-99) mg/dl Calcium 8.0 L (8.5-10.1) mg/dl Total Bilirubin 1.2 H (0.2-1) mg/dl AST 128 H (15-37) U/L ALT 96 H (12-78) U/L Alkaline Phosphatase 123 H (45-117) U/L Total Creatine Kinase 78 (39-308) U/L CK-MB (CK-2) 1.5 (0.5-3.6) ng/ml CK/CKMB % Calc 1.9 (0-3.0) Troponin I < 0.015 (0-0.045) ng/ml Total Protein 7.4 (6.4-8.2) gm/dl Albumin 3.6 (3.4-5.0) gm/dl Globulin 3.8 (2.5-4.0) gm/dl Albumin/Globulin Ratio 0.9 (0.9-2) Lipase 189 (73-393) U/L Imaging Data Radiologist's Impression: Radiology results as stated below per my review and the radiologist's interpretation: SINGLE VIEW CHEST CLINICAL HISTORY: Atypical chest pain. FINDINGS: An AP, portable, upright chest radiograph is correlated with chest CT dated 10/04/2017. The examination is degraded by portable technique and patient rotation. A 2-lead cardiac pacemaker is unchanged in position and partially obscures the left upper chest. The patient is status post midline sternotomy. The heart is enlarged and there is atherosclerotic calcification of the thoracic aorta. The pulmonary vasculature is noncongested. There is mild elevation of the left hemidiaphragm and bibasilar atelectasis. No airspace consolidation or large pleural effusion is identified. Scattered calcified granulomas are similar to previous. No pneumothorax is seen. The skeletal structures are osteopenic. The bony thorax is grossly intact. IMPRESSION: 1. Cardiomegaly and cardiac pacemaker. There is no radiographic evidence of congestive failure. 2. No airspace consolidation or pleural effusion is identified. Electronically signed by: Leandro Napier M.D. 10/21/2018 11:14 PM ECG Data Attestation: I personally reviewed and interpreted this ECG as follows: Indication: chest pain Rate (beats per minute): 92 Rhythm: other (Ventricularly paced) Findings: no ST elevation Blood Pressure Blood Pressure Findings: Normal blood pressure Blood Pressure Disposition: did not require urgent referral MDM Narrative This is a 73-year-old male who presents to the ED with a chief complaint of chest discomfort mainly in the epigastric area described as indigestion. He had diaphoresis and nausea at the onset. It occurred about an hour and half prior to coming while he was sitting. The patient was given an aspirin as well as nitroglycerin on his way here. His symptoms resolved in route. He was pain-tate e when I saw him. His vital signs are stable. His physical exam was remarkable. An EKG shows a paced ventricular rhythm. Chest x-ray did not show acute process. CBC and chemistry panel was unremarkable. Troponin was negative. The patient remained asymptomatic during his ED stay. He was told the results. He was to be seen by the hospitalist for further inpatient evaluation and care. Impression & Plan Chest pain Discharge Plan Visit Data Chief Complaint: Chest Pain Stated Complaint: CHEST PAIN ED Provider: Dawson Mota Discharge Problem: Chest pain Patient Disposition: Being Evaluated by Hospitalist Condition: Good Forms Stand Alone Forms: Call Back Authorization, [facility] Prescriptions Prescriptions: No Action finasteride 5 mg Tablet 5 mg PO DAILY RF: 0 epinephrine [EpiPen] 0.3 mg/0.3 mL Auto-Injector 0.3 mg IM Q3H PRN (Reason: Allergy Symptoms) RF: 0 metoprolol tartrate 25 mg Tablet 12.5 mg PO BID RF: 0 acetaminophen [Tylenol] 325 mg Tablet 325 mg PO DIRECTED PRN (Reason: Pain) RF: 0 albuterol sulfate [Proventil HFA] 90 mcg/actuation Hfa Aerosol Inhaler 2 puff INHALATION QID PRN (Reason: sob) RF: 0 clindamycin HCl 300 mg Capsule 600 mg PO DIRECTED RF: 0 aspirin 81 mg Tablet,Delayed Release (Dr/Ec) 0.5 mg PO DAILY RF: 0 nitroglycerin [Nitrostat] 0.4 mg Tablet, Sublingual 0.4 mg Sublingual DIRECTED PRN (Reason: Chest Pain) RF: 0 Symbicort 160-4.5 mcg/actuation Hfa Aerosol Inhaler 2 puff INHALATION BID RF: 0 furosemide [Lasix] 20 mg Tablet 20 mg PO DAILY RF: 0 gabapentin 300 mg Capsule 300 mg PO QID RF: 0 duloxetine 60 mg Capsule,Delayed Release(Dr/Ec) 60 mg PO DAILY RF: 0 Spiriva with HandiHaler 18 mcg Capsule, W/Inhalation Device 1 cap INHALATION DAILY RF: 0 glimepiride 4 mg Tablet 4 mg PO BID RF: 0 Onglyza 5 mg Tablet 5 mg PO DAILY RF: 0 lamotrigine 200 mg Tablet 200 mg PO HS RF: 0 Lantus Solostar U-100 Insulin 100 unit/mL (3 mL) Insulin Pen 24 unit SUBCUT QAM RF: 0 Lantus Solostar U-100 Insulin 100 unit/mL (3 mL) Insulin Pen 26 unit SUBCUT QPM RF: 0 hydrocortisone 2.5 % Ointment 1 applic TOPICAL HS PRN (Reason: Itching) RF: 0 atorvastatin [Lipitor] 40 mg Tablet 40 mg PO HS RF: 0 donepezil 10 mg Tablet 10 mg PO DAILY RF: 0 paroxetine HCl 20 mg Tablet 20 mg PO DAILY RF: 0 buspirone 30 mg Tablet 30 mg PO TID RF: 0 memantine 5 mg Tablet 5 mg PO BID RF: 0 sildenafil 25 mg Tablet 20 mg PO DIRECTED RF: 0 Referrals Referrals: Leandro Rodrigues MD [Primary Care Provider] - The scribe's documentation has been prepared under my direction and personally reviewed by me in its entirety. I confirm that the note above accurately reflects all work, treatment, procedures, and medical decision making performed by me.
--- NOTE | 2018-10-22 01:24 | History & Physical Report ---
Date of Service October 22, 2018 Assessment & Plan (1) Abdominal pain: Patient describes epigastric and upper abdominal pain. Now resolved -mildly abnormal LFTs, see below -Maalox PRN -monitor (2) Abnormal LFTs: Check hepatitis panel, acetaminophien level, RUQUS, repeat LFTs (3) CAD (coronary artery disease): Continue ASA, Metoprolol Continue Lasix, currently appears to be euvolemic Trend troponins Nitro PRN Telemetry monitoring (4) Diabetes: Lantus 20u BID ISS Continue Gabapentin (5) Hypertension: Continue Metoprolol (6) COPD (chronic obstructive pulmonary disease): No respiratory distress. No wheeze -Conitnue Albuterol PRN -Continue Budesonide/Formoterol -Continue Tiotropium (7) BPH (benign prostatic hyperplasia): Continue Finasteride (8) Dementia: Continue Aricept Continue Namenda (9) Depression: Continue Buspirone and Duloxetine Continue Paxil History of Present Illness Chief Complaint: abdominal pain Primary Care Provider: Leandro Rodrigues MD Mr. Wright is pleasant 73yo male with multiple medical comordities to include CAD s/p stents x 7, most recently in 2001, DM, HTN, HLP, AAA on surveillance, COPD. Patient states that at appx 20:45 he experienced severe epigastric/upper abdominal discomfort. Pain 7/10 in severity, sharp in nature. Non-exertional/non-radiating/non-pleuritic, associated with nausea, bloating and diaphoresis. He took Tums/Antacids as well as ASA x 5 and Nitro. The pain lasted appx 1 hour and 15 minutes then resolved on its own. Patient has never had this pain before. Presently feels well with no additional complaints. Patient denies exertional chest pain. He is fairly active, enjoys hunting. He does report that his activities are limited by SOB. He has a diagnosis of COPD. States that he has baseline SOB and fairly severe CARTER that has been progressive x years. No acute worsening. He denies palpitations, orthopnea, edema, weight gain. Denies cough/wheeze/sputum. Patient follows with Cardiology. He sees Dr. Meraz for managment of his dual chamber pacer. Last seen 05 Aug 2018. He follows with Dr. Saba as well. Patient with history of multivessel CAD s/p multiple stents. 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 Routine cardiology followup has been unremarkable. Echo 08/16/18 with mildly dilated LV with normal EF, 50-55%, mild MR, bioprosthetic AV in place, appropriately functioning Myocardial perfusion study 02 Sep 2016 - no significant ischemic changes. Suggestion of prior RCA territory and apical infarcts and possibly circumflex territory as well. Normal LF size and function. Akinesis of apex, hypokinesis of inferior septum and inferior wall. Allergies Allergy/AdvReac Type Severity Reaction Status Date / Time bee venom protein (honey bee) Allergy Unknown SWELLING Verified 10/21/18 23:50 codeine Allergy Unknown HALLUCINATI Verified 10/21/18 23:50 NG Penicillins Allergy Unknown UNKNOWN Verified 10/21/18 23:50 Sulfa (Sulfonamide Allergy Unknown "SULFA": Verified 10/21/18 23:50 Antibiotics) RASH Home Medications Home Medications Medication Instructions Recorded Confirmed Type acetaminophen [Tylenol] 325 mg PO DIRECTED PRN 10/21/18 10/21/18 History albuterol sulfate [Proventil HFA] 2 puff INHALATION QID PRN 10/21/18 10/21/18 History aspirin 0.5 mg PO DAILY 10/21/18 10/21/18 History budesonide-formoterol [Symbicort] 2 puff INHALATION BID 10/21/18 10/22/18 History clindamycin HCl 600 mg PO DIRECTED 10/21/18 10/21/18 History epinephrine [EpiPen] 0.3 mg IM Q3H PRN 10/21/18 10/21/18 History finasteride 5 mg PO DAILY 10/21/18 10/21/18 History metoprolol tartrate 12.5 mg PO BID 10/21/18 10/21/18 History nitroglycerin [Nitrostat] 0.4 mg SUBLINGUAL DIRECTED PRN 10/21/18 10/21/18 History atorvastatin [Lipitor] 40 mg PO HS 10/22/18 10/22/18 History buspirone 30 mg PO TID 10/22/18 10/22/18 History donepezil 10 mg PO DAILY 10/22/18 10/22/18 History duloxetine 60 mg PO DAILY 10/22/18 10/22/18 History furosemide [Lasix] 20 mg PO DAILY 10/22/18 10/22/18 History gabapentin 300 mg PO QID 10/22/18 10/22/18 History glimepiride 4 mg PO BID 10/22/18 10/22/18 History hydrocortisone 1 applic TOPICAL HS PRN 10/22/18 10/22/18 History insulin glargine [Lantus Solostar 24 unit SUBCUT QAM 10/22/18 10/22/18 History U-100 Insulin] insulin glargine [Lantus Solostar 26 unit SUBCUT QPM 10/22/18 10/22/18 History U-100 Insulin] lamotrigine 200 mg PO HS 10/22/18 10/22/18 History memantine 5 mg PO BID 10/22/18 10/22/18 History paroxetine HCl 20 mg PO DAILY 10/22/18 10/22/18 History saxagliptin [Onglyza] 5 mg PO DAILY 10/22/18 10/22/18 History sildenafil 20 mg PO DIRECTED 10/22/18 10/22/18 History tiotropium bromide [Spiriva with 1 cap INHALATION DAILY 10/22/18 10/22/18 History HandiHaler] Past Med/Surg History Medical History Myocardial infarction Pacemaker Diabetes mellitus COPD exacerbation BPH (benign prostatic hyperplasia) CAD (coronary artery disease) CKD (chronic kidney disease) Dementia HTN (hypertension), benign TIA (transient ischemic attack) Surgical History S/P aortic valve replacement Status post cardiac pacemaker procedure Family History Other Family history non-contributory Social History Preferred Language: Belgian Communication Ability: Effective Beliefs That Will Affect Care: None Current Living Situation: Spouse Current Living Situation Comment: House Other Information That Helps Us Care for You: No Feels Safe at Home: Yes Safety Concerns: Feels Safe At This Time Smoking Status: Former smoker Hx Alcohol Use: No Hx Substance Use: No Review of Systems All systems reviewed & are unremarkable except as noted in HPI & below Physical Exam Vital Signs (Past 24 Hours): Last Vital Signs Temp 36.7 C 10/21/18 22:43 Pulse 96 H 10/21/18 22:43 Resp 16 10/21/18 22:43 BP 111/67 10/21/18 22:43 Pulse Ox 94 10/21/18 22:43 Physical Exam: General: patient resting comfortably, NAD, non-toxic in appearance, AA&O x 4 Skin: warm, dry, intact, no rashs, scattered bruises on UE and LE HEENT: NC/AT, PERRL, EOMI, anicteric sclera, conjunctiva without injection, external ear normal to inspection and nontender, nares patent, moist mucus membranes, dentition intact, no oropharyngeal lesions, neck supple, trachea midline, no LAD, no thyromegaly, no JVD Heart: +S1/S2, regular, 3/6 ONI at 2nd righ ICS with radiation across precordium Lungs: equal air entry bilaterally, no rales/rhonchi/wheezes Abd: +BS, hyperactive, soft, NT/ND, no masses/organomegaly/ascites Ext: warm, 2+ pulses in UE/LE bilaterally, no clubbing/cyanosis or edema Neuro: nonfocal, patient AA&O x 4, speech intact, no facial droop, moving all extremities on command with equal strength 5/5 Results & Data Laboratory Results Lab Results 10/21/18 10/21/18 10/21/18 Range/Units 23:30 23:30 23:30 WBC 18.62 H (4.8-10.8) K/uL RBC 3.34 L (4.7-6.1) M/uL Hgb 10.6 L (14.0-18.0) g/dL Hct 32.1 L (42-52) % MCV 96.1 (80-100) fL MCH 31.7 (25-34) pg MCHC 33.0 (32-36) g/dL RDW Std Deviation 66.1 H (36.4-46.3) fL RDW Coeff of Linda 18.8 H (11.5-14.5) % Plt Count 252 (130-400) K/uL MPV 10.7 H (7.4-10.4) fL Immature Gran % (Auto) 0.3 % Neut % (Auto) 85.8 % Lymph % (Auto) 7.9 % [place] % (Auto) 5.2 % Eos % (Auto) 0.5 % Baso % (Auto) 0.3 % Immature Gran # (Auto) 0.06 H (0.00-0.02) K/uL Neut # (Auto) 15.97 H (1.4-6.5) K/uL Lymph # (Auto) 1.47 (1.2-3.4) K/uL [place] # (Auto) 0.96 H (0.11-0.59) K/uL Eos # (Auto) 0.10 (0-0.5) K/uL Baso # (Auto) 0.06 (0-0.2) K/uL PT 10.7 (9.0-12.0) Seconds INR 1.0 (0.9-1.1) APTT 22.3 (21.0-31.0) Seconds PTT Ratio 0.8 Sodium 139 (136-145) mmol/L Potassium 4.7 (3.5-5.1) mmol/L Chloride 105 (98-107) mmol/L Carbon Dioxide 27 (21-32) mmol/L Anion Gap 7.0 (3-11) BUN 28 H (7-18) mg/dl Creatinine 1.69 H (0.6-1.4) mg/dl Est Cr Clr Drug Dosing 45.8 ml/min Est GFR ( Amer) 46.0 Est GFR (Non-Af Amer) 39.7 BUN/Creatinine Ratio 16.7 (10-20) Glucose 258 H (70-99) mg/dl Calcium 8.0 L (8.5-10.1) mg/dl Phosphorus 3.1 (2.5-4.9) mg/dl Magnesium 2.1 (1.8-2.4) mg/dl Total Bilirubin 1.2 H (0.2-1) mg/dl AST 128 H (15-37) U/L ALT 96 H (12-78) U/L Alkaline Phosphatase 123 H (45-117) U/L Total Creatine Kinase 78 (39-308) U/L CK-MB (CK-2) 1.5 (0.5-3.6) ng/ml CK/CKMB % Calc 1.9 (0-3.0) Troponin I < 0.015 (0-0.045) ng/ml Total Protein 7.4 (6.4-8.2) gm/dl Albumin 3.6 (3.4-5.0) gm/dl Globulin 3.8 (2.5-4.0) gm/dl Albumin/Globulin Ratio 0.9 (0.9-2) Lipase 189 (73-393) U/L Hep Bs Antigen (Neg) Hepatitis C Antibody (Neg) 10/21/18 Range/Units 23:30 WBC (4.8-10.8) K/uL RBC (4.7-6.1) M/uL Hgb (14.0-18.0) g/dL Hct (42-52) % MCV (80-100) fL MCH (25-34) pg MCHC (32-36) g/dL RDW Std Deviation (36.4-46.3) fL RDW Coeff of Linda (11.5-14.5) % Plt Count (130-400) K/uL MPV (7.4-10.4) fL Immature Gran % (Auto) % Neut % (Auto) % Lymph % (Auto) % [place] % (Auto) % Eos % (Auto) % Baso % (Auto) % Immature Gran # (Auto) (0.00-0.02) K/uL Neut # (Auto) (1.4-6.5) K/uL Lymph # (Auto) (1.2-3.4) K/uL [place] # (Auto) (0.11-0.59) K/uL Eos # (Auto) (0-0.5) K/uL Baso # (Auto) (0-0.2) K/uL PT (9.0-12.0) Seconds INR (0.9-1.1) APTT (21.0-31.0) Seconds PTT Ratio Sodium (136-145) mmol/L Potassium (3.5-5.1) mmol/L Chloride (98-107) mmol/L Carbon Dioxide (21-32) mmol/L Anion Gap (3-11) BUN (7-18) mg/dl Creatinine (0.6-1.4) mg/dl Est Cr Clr Drug Dosing ml/min Est GFR ( Amer) Est GFR (Non-Af Amer) BUN/Creatinine Ratio (10-20) Glucose (70-99) mg/dl Calcium (8.5-10.1) mg/dl Phosphorus (2.5-4.9) mg/dl Magnesium (1.8-2.4) mg/dl Total Bilirubin (0.2-1) mg/dl AST (15-37) U/L ALT (12-78) U/L Alkaline Phosphatase (45-117) U/L Total Creatine Kinase (39-308) U/L CK-MB (CK-2) (0.5-3.6) ng/ml CK/CKMB % Calc (0-3.0) Troponin I (0-0.045) ng/ml Total Protein (6.4-8.2) gm/dl Albumin (3.4-5.0) gm/dl Globulin (2.5-4.0) gm/dl Albumin/Globulin Ratio (0.9-2) Lipase (73-393) U/L Hep Bs Antigen Neg (Neg) Hepatitis C Antibody Neg (Neg) Diagnostic Findings SINGLE VIEW CHEST CLINICAL HISTORY: Atypical chest pain. FINDINGS: An AP, portable, upright chest radiograph is correlated with chest CT dated 10/04/2017. The examination is degraded by portable technique and patient rotation. A 2-lead cardiac pacemaker is unchanged in position and partially obscures the left upper chest. The patient is status post midline sternotomy. The heart is enlarged and there is atherosclerotic calcification of the thoracic aorta. The pulmonary vasculature is noncongested. There is mild elevation of the left hemidiaphragm and bibasilar atelectasis. No airspace consolidation or large pleural effusion is identified. Scattered calcified granulomas are similar to previous. No pneumothorax is seen. The skeletal structures are osteopenic. The bony thorax is grossly intact. IMPRESSION: 1. Cardiomegaly and cardiac pacemaker. There is no radiographic evidence of congestive failure. 2. No airspace consolidation or pleural effusion is identified. Electronically signed by: Leandro Napier M.D. 10/21/2018 11:14 PM Dictated: 10/21/182311 Transcribed: 10/21/182311 ECG Additional Comments: EKG a-sensed, V-paced at 92bpm, no acute ischemic changes. No prior studies for comparison Code Status & VTE Plan Code Status full VTE Prophylaxis Plan VTE Prophylaxis will be ordered: Yes Critical Care Time Critical Care Time: No
[2018-10-22] MEDS ORDERED: GLUCAGON FOR INJ 1 MG VIAL SQ PRN (02:29)
[2018-10-22] MEDS ORDERED: NITROGLYCERIN SL 0.4 MG/TAB TAB SL PRN (02:29)
[2018-10-22] MEDS ORDERED: ONDANSETRON INJ 2 MG/ML 2 ML VIAL IV PRN (02:29)
[2018-10-22] MEDS ORDERED: DEXTROSE 50% 50 ML SYRINGE IV PRN (02:29)
[2018-10-22] MEDS ORDERED: ALBUTEROL HFA 8 GM INHALER INH PRN (02:29)
[2018-10-22] MEDS ORDERED: ALUMINUM/MAGNESIUM SUSP 30 ML UDC PO PRN (02:29)
[2018-10-22] MEDS ORDERED: CARBOHYDRATES FOR HYPOGLYCEMIA PO PRN (02:29)
[2018-10-22] MEDS ORDERED: GLUCOSE 10 TABS/TUBE PO PRN (02:29)
[2018-10-22] MEDS ORDERED: GLUCOSE 40% GEL 15 GM TUBE PO PRN (02:29)
[2018-10-22 02:46] LABS: Magnesium 2.1 mg/dl (1.8-2.4); Phosphorus 3.1 mg/dl (2.5-4.9)
[2018-10-22 03:36] LABS: Hepatitis B Surface Antigen Neg (Neg)
[2018-10-22 04:00] LABS: Hepatitis C IgG 13Yrs+Old_Rflx Neg (Neg)
[2018-10-22 06:27] LABS: Basophils # (auto) 0.07 K/uL (0-0.2); Basophils % (auto) 0.6 %; Eosinophils # (auto) 0.12 K/uL (0-0.5); Hematocrit (blood only) 34.9 % (42-52); Hemoglobin 11.7 g/dL (14.0-18.0); Immature Granulocytes # (auto) 0.04 K/uL (0.00-0.02); Immature Granulocytes % (auto) 0.3 %; Lymphocytes # (auto) 1.89 K/uL (1.2-3.4); Mean Corpuscular Hgb Conc 33.5 g/dL (32-36); Mean Corpuscular Volume 95.6 fL (80-100); Mean Platelet Volume 10.7 fL (7.4-10.4); Monocytes % (auto) 6.3 %; Neutrophils # (auto) 9.68 K/uL (1.4-6.5); Neutrophils % (auto) 76.8 %; Nucleated RBC # (auto) 0.04 K/uL (0-0); Nucleated RBC % (auto) 0.3 %; Platelet Count 262 K/uL (130-400); RDW Coefficient of Variation 18.8 % (11.5-14.5); RDW Standard Deviation 66.2 fL (36.4-46.3); Red Blood Count 3.65 M/uL (4.7-6.1)
[2018-10-22] MEDS: FINASTERIDE 5 MG TAB PO SCH (08:32)
[2018-10-22] MEDS: DONEPEZIL HCL 10 MG TAB PO SCH (08:32)
[2018-10-22] MEDS: DULOXETINE HCL 60 MG CAP PO SCH (08:32)
[2018-10-22] MEDS: METOPROLOL TARTRATE 25 MG TAB PO SCH ×2 (08:32→20:03)
[2018-10-22] MEDS: BusPIRone 15 MG TAB PO SCH ×3 (08:33→20:03)
[2018-10-22] MEDS: FUROSEMIDE 20 MG TAB PO SCH (08:33)
[2018-10-22] MEDS: PARoxetine HCl 20 MG TAB PO SCH (08:33)
[2018-10-22] MEDS: GABAPENTIN 300 MG CAP PO SCH ×4 (08:33→20:03)
[2018-10-22] MEDS: MEMANTINE HCL 5 MG TAB PO SCH ×2 (08:33→20:03)
[2018-10-22] MEDS: ASPIRIN 81 MG ECTAB PO SCH (08:34)
[2018-10-22] MEDS: TIOTROPIUM BROMIDE 5 PUFF/90 MCG INH INH SCH (08:37)
[2018-10-22] MEDS: INSULIN ASPART 100 UNITS/ML 3 ML PEN SC SCH ×4 (08:39→21:50)
[2018-10-22] MEDS: BUDESONIDE/FORMOTEROL FUMARATE 160/4.5 60 PUFFS/INHALER INH SCH ×2 (08:41→20:04)
[2018-10-22] MEDS: INSULIN GLARGINE SOLOSTAR 100 UNITS/ML 3 ML PEN SQ SCH ×2 (08:41→21:49)
--- NOTE | 2018-10-22 10:04 | Ultrasound Report ---
ULTRASOUND RIGHT UPPER QUADRANT ABDOMEN CLINICAL HISTORY: Elevated hepatic transaminases. COMPARISON STUDY: Abdominal CT dated 10/06/2017. TECHNIQUE: Real-time, grayscale, and color flow sonography of the right upper quadrant of the abdomen was performed. Images are reviewed in the transverse and longitudinal planes. FINDINGS: Liver: The liver is enlarged and demonstrates heterogeneously increased echotexture consistent with h epatic steatosis. Fatty sparing is seen adjacent to gallbladder fossa. There is no intrahepatic bilia ry ductal dilatation. The main portal vein is patent. Gallbladder: There are small shadowing gallstones and biliary sludge. The gallbladder wall is top nor mal in thickness measuring up to 4 mm. There is trace pericholecystic fluid. A sonographic Matthews's s ign is reportedly absent. The common bile duct measures up to 0.6 cm in diameter. Pancreas: Bowel visualized due to overlying bowel gas. Right kidney: Survey images of the right kidney demonstrate mild cortical atrophy. There is no hydron ephrosis. Ascites: None. IMPRESSION: 1. Cholelithiasis and biliary sludge. The gallbladder is mildly distended, the gallbladder wall is to p normal in thickness, and there is trace pericholecystic fluid. Findings are equivocal for acute cho lecystitis which is not excluded. A sonographic Matthews's sign is reportedly absent. Clinical correlat ion will be required. If there is clinical concern for acute cholecystitis a nuclear hepatobiliary sc an could be considered. 2. Hepatomegaly and hepatic steatosis. Electronically signed by: Leandro Napier M.D. 10/22/2018 10:02 AM
[2018-10-22 11:39] LABS: BUN Creatinine Ratio 21.3 (10-20); Calcium 8.7 mg/dl (8.5-10.1); Creatinine Clr Calc Pharmacy 56.2 ml/min; Est GFR (African American) 59.8; Est GFR (Non-African American) 51.6; Potassium 4.7 mmol/L (3.5-5.1)
[2018-10-22 11:45] LABS: Bilirubin,Total 2.9 mg/dl (0.2-1); Globulin 4.2 gm/dl (2.5-4.0); Total Protein 8.2 gm/dl (6.4-8.2)
[2018-10-22] MEDS: AZTREONAM 1,000 MG in DEXTROSE 5% 100 ML IV SCH ×2 (14:55→21:49)
--- NOTE | 2018-10-22 15:16 | Family Medicine Progress Note ---
Date of Service October 22, 2018 Assessment & Plan (1) Abdominal pain: 73yo gentleman with a complex cardiac PMHx including placement of a pacemaker who presented with epigastric pain and was found to have increased LFTs and an equivocal right upper quadrant US for acute cholecystitis. Epigastric/Abdominal Pain secondary to cholecystitis -Viral Hep Panel- neg for Hep B surface antigen and HCV. Acetaminophen level couldn't be obtained. -RUQ US shows some fluid around gallbladder, gallstones with sludge. Read as equivocal. Further testing recommended. -Pt afebrile but in combination with leukocytosis and significantly increased liver enzymes, -Surgery consulted - MRCP proposed by Surgery consult placed. However, pt has pacemaker. Will continue to follow Gen Surg recs. -Pt placed on Aztreonam CAD -Trops negative, -Cariology consulted -continue home ASA, lasix, metoprolol Diabetes -ISS, continue home gabapentin for neuropathic pain HTN -continue home metoprolol COPD -continue home Albuterol prn, budesonide/fomoterol, tiotropium BPH: continue home finasteride Dementia -continue home Aricept, Namenda Depression -continue home buspirone, duloxetine, paxil DVT Proph: SCDs Code Status: Full code Supervising Physician Co-Signing Physician Notes Resident Physician Supervision Note: I independently interviewed and examined the patient and verified the dye history and physical, reviewed labs and image studies, discussed the case with the resident Dr. Blanc and agree with the findings and care plan. Subjective Pt states he feels fine was AAOx3, stated that he had no N/V, no decreased appetite or abdominal pain especially after a meal. States he would like to be discharged. Son and were at bedside and state that he has mild dementia and PTSD from the [place] war and was exposed to Agent [place]. Son is a customs entry writer and teaches emergency medicine classes. Review of Systems All systems reviewed & are unremarkable except as noted in HPI & below Physical Exam Vital Signs (Past 24 Hours): Last Vital Signs Temp 36.5 C 10/22/18 11:32 Pulse 89 10/22/18 11:32 Resp 20 10/22/18 11:32 BP 131/77 10/22/18 11:32 Pulse Ox 95 10/22/18 11:32 General: Alert, orientedx3. No acute distress HEENT: NC/AT, PERRLA, EOMI, oropharynx moist. Chest: Nontender to palpation in epigastric region. CV: RRR Resp: Breath sounds clear bilaterally, no increased effort of breathing Abdomen: BS+. Soft, nontender, nondistended. No guarding. No organomegaly appreciated. Extremities: No edema. Results & Data Laboratory Results Laboratory Results - last 24 hr 10/21/18 10/21/18 10/21/18 23:30 23:30 23:30 WBC 18.62 H RBC 3.34 L Hgb 10.6 L Hct 32.1 L MCV 96.1 MCH 31.7 MCHC 33.0 RDW Std Deviation 66.1 H RDW Coeff of Linda 18.8 H Plt Count 252 MPV 10.7 H Immature Gran % (Auto) 0.3 Neut % (Auto) 85.8 Lymph % (Auto) 7.9 [place] % (Auto) 5.2 Eos % (Auto) 0.5 Baso % (Auto) 0.3 Immature Gran # (Auto) 0.06 H Neut # (Auto) 15.97 H Lymph # (Auto) 1.47 [place] # (Auto) 0.96 H Eos # (Auto) 0.10 Baso # (Auto) 0.06 Absolute Nucleated RBC Nucleated RBC % (auto) PT 10.7 INR 1.0 APTT 22.3 PTT Ratio 0.8 Sodium 139 Potassium 4.7 Chloride 105 Carbon Dioxide 27 Anion Gap 7.0 BUN 28 H Creatinine 1.69 H Est Cr Clr Drug Dosing 45.8 Est GFR ( Amer) 46.0 Est GFR (Non-Af Amer) 39.7 BUN/Creatinine Ratio 16.7 Glucose 258 H POC Glucose Calcium 8.0 L Phosphorus 3.1 Magnesium 2.1 Total Bilirubin 1.2 H AST 128 H ALT 96 H Alkaline Phosphatase 123 H Total Creatine Kinase 78 CK-MB (CK-2) 1.5 CK/CKMB % Calc 1.9 Troponin I < 0.015 Total Protein 7.4 Albumin 3.6 Globulin 3.8 Albumin/Globulin Ratio 0.9 Lipase 189 Acetaminophen Hep Bs Antigen Hepatitis C Antibody 10/21/18 10/22/18 10/22/18 23:30 06:07 06:07 WBC 12.60 H RBC 3.65 L Hgb 11.7 L Hct 34.9 L MCV 95.6 MCH 32.1 MCHC 33.5 RDW Std Deviation 66.2 H RDW Coeff of Linda 18.8 H Plt Count 262 MPV 10.7 H Immature Gran % (Auto) 0.3 Neut % (Auto) 76.8 Lymph % (Auto) 15.0 [place] % (Auto) 6.3 Eos % (Auto) 1.0 Baso % (Auto) 0.6 Immature Gran # (Auto) 0.04 H Neut # (Auto) 9.68 H Lymph # (Auto) 1.89 [place] # (Auto) 0.80 H Eos # (Auto) 0.12 Baso # (Auto) 0.07 Absolute Nucleated RBC 0.04 H Nucleated RBC % (auto) 0.3 PT INR APTT PTT Ratio Sodium Potassium Chloride Carbon Dioxide Anion Gap BUN Creatinine Est Cr Clr Drug Dosing Est GFR ( Amer) Est GFR (Non-Af Amer) BUN/Creatinine Ratio Glucose POC Glucose Calcium Phosphorus Magnesium Total Bilirubin AST ALT Alkaline Phosphatase Total Creatine Kinase CK-MB (CK-2) CK/CKMB % Calc Troponin I Total Protein Albumin Globulin Albumin/Globulin Ratio Lipase Acetaminophen Hep Bs Antigen Neg Hepatitis C Antibody Neg 10/22/18 10/22/18 10/22/18 06:07 06:11 07:48 WBC RBC Hgb Hct MCV MCH MCHC RDW Std Deviation RDW Coeff of Linda Plt Count MPV Immature Gran % (Auto) Neut % (Auto) Lymph % (Auto) [place] % (Auto) Eos % (Auto) Baso % (Auto) Immature Gran # (Auto) Neut # (Auto) Lymph # (Auto) [place] # (Auto) Eos # (Auto) Baso # (Auto) Absolute Nucleated RBC Nucleated RBC % (auto) PT INR APTT PTT Ratio Sodium 138 Potassium 4.7 Chloride 106 Carbon Dioxide 31 Anion Gap 1.0 L BUN 29 H Creatinine 1.36 D Est Cr Clr Drug Dosing 56.2 Est GFR ( Amer) 59.8 Est GFR (Non-Af Amer) 51.6 BUN/Creatinine Ratio 21.3 H Glucose 146 H POC Glucose 108 H Calcium 8.7 Phosphorus Magnesium Total Bilirubin 2.9 H D AST 892 H ALT 694 H Alkaline Phosphatase 150 H Total Creatine Kinase CK-MB (CK-2) CK/CKMB % Calc Troponin I < 0.015 Total Protein 8.2 Albumin 4.0 Globulin 4.2 H Albumin/Globulin Ratio 1.0 Lipase Acetaminophen Hep Bs Antigen Hepatitis C Antibody 10/22/18 11:51 WBC RBC Hgb Hct MCV MCH MCHC RDW Std Deviation RDW Coeff of Linda Plt Count MPV Immature Gran % (Auto) Neut % (Auto) Lymph % (Auto) [place] % (Auto) Eos % (Auto) Baso % (Auto) Immature Gran # (Auto) Neut # (Auto) Lymph # (Auto) [place] # (Auto) Eos # (Auto) Baso # (Auto) Absolute Nucleated RBC Nucleated RBC % (auto) PT INR APTT PTT Ratio Sodium Potassium Chloride Carbon Dioxide Anion Gap BUN Creatinine Est Cr Clr Drug Dosing Est GFR ( Amer) Est GFR (Non-Af Amer) BUN/Creatinine Ratio Glucose POC Glucose 157 H Calcium Phosphorus Magnesium Total Bilirubin AST ALT Alkaline Phosphatase Total Creatine Kinase CK-MB (CK-2) CK/CKMB % Calc Troponin I Total Protein Albumin Globulin Albumin/Globulin Ratio Lipase Acetaminophen Hep Bs Antigen Hepatitis C Antibody Medications Administered Home Medications acetaminophen [Tylenol] 325 mg PO DIRECTED PRN 10/21/18 [History Confirmed 10/21/18] albuterol sulfate [Proventil HFA] 2 puff INHALATION QID PRN 10/21/18 [History Confirmed 10/21/18] aspirin 0.5 mg PO DAILY 10/21/18 [History Confirmed 10/21/18] budesonide-formoterol [Symbicort] 2 puff INHALATION BID 10/21/18 [History Confirmed 10/22/18] clindamycin HCl 600 mg PO DIRECTED 10/21/18 [History Confirmed 10/21/18] epinephrine [EpiPen] 0.3 mg IM Q3H PRN 10/21/18 [History Confirmed 10/21/18] finasteride 5 mg PO DAILY 10/21/18 [History Confirmed 10/21/18] metoprolol tartrate 12.5 mg PO BID 10/21/18 [History Confirmed 10/21/18] nitroglycerin [Nitrostat] 0.4 mg SUBLINGUAL DIRECTED PRN 10/21/18 [History Confirmed 10/21/18] atorvastatin [Lipitor] 40 mg PO HS 10/22/18 [History Confirmed 10/22/18] buspirone 30 mg PO TID 10/22/18 [History Confirmed 10/22/18] donepezil 10 mg PO DAILY 10/22/18 [History Confirmed 10/22/18] duloxetine 60 mg PO DAILY 10/22/18 [History Confirmed 10/22/18] furosemide [Lasix] 20 mg PO DAILY 10/22/18 [History Confirmed 10/22/18] gabapentin 300 mg PO QID 10/22/18 [History Confirmed 10/22/18] glimepiride 4 mg PO BID 10/22/18 [History Confirmed 10/22/18] hydrocortisone 1 applic TOPICAL HS PRN 10/22/18 [History Confirmed 10/22/18] insulin glargine [Lantus Solostar U-100 Insulin] 24 unit SUBCUT QAM 10/22/18 [History Confirmed 10/22/18] insulin glargine [Lantus Solostar U-100 Insulin] 26 unit SUBCUT QPM 10/22/18 [History Confirmed 10/22/18] lamotrigine 200 mg PO HS 10/22/18 [History Confirmed 10/22/18] memantine 5 mg PO BID 10/22/18 [History Confirmed 10/22/18] paroxetine HCl 20 mg PO DAILY 10/22/18 [History Confirmed 10/22/18] saxagliptin [Onglyza] 5 mg PO DAILY 10/22/18 [History Confirmed 10/22/18] sildenafil 20 mg PO DIRECTED 10/22/18 [History Confirmed 10/22/18] tiotropium bromide [Spiriva with HandiHaler] 1 cap INHALATION DAILY 10/22/18 [History Confirmed 10/22/18] Active Medications Al Hydrox/Mg Hydrox/Simethicone (Maalox) 30 ml PO Q6H PRN PRN Reason: Dyspepsia Stop: 11/21/18 02:28 Albuterol (Ventolin Hfa) 2 puffs INH QID PRN PRN Reason: sob Stop: 11/21/18 02:28 Aspirin (Ecotrin Ectab) 0.5 mg PO DAILY COLLIN Stop: 11/21/18 08:59 Last Admin: 10/22/18 08:34 Dose: 0.5 mg Documented by: Budesonide/Formoterol Fumarate (Symbicort 160mcg/4.5mcg) 2 puffs INH BID COLLIN Stop: 11/21/18 08:59 Last Admin: 10/22/18 08:41 Dose: 2 puffs Documented by: Buspirone HCl (Buspar) 30 mg PO TID COLLIN Stop: 11/21/18 08:59 Last Admin: 10/22/18 14:55 Dose: 30 mg Documented by: Dextrose (Dextrose 50%) 25 - 50 ml IV UD PRN; Protocol PRN Reason: Hypoglycemia Protocol Stop: 11/21/18 02:28 Donepezil HCl (Aricept) 10 mg PO DAILY COLLIN Stop: 11/21/18 08:59 Last Admin: 10/22/18 08:32 Dose: 10 mg Documented by: Duloxetine HCl (Cymbalta) 60 mg PO DAILY COLLIN Stop: 11/21/18 08:59 Last Admin: 10/22/18 08:32 Dose: 60 mg Documented by: Finasteride (Proscar) 5 mg PO DAILY COLLIN Stop: 11/21/18 08:59 Last Admin: 10/22/18 08:32 Dose: 5 mg Documented by: Furosemide (Lasix) 20 mg PO DAILY COLLIN Stop: 11/21/18 08:59 Last Admin: 10/22/18 08:33 Dose: 20 mg Documented by: Gabapentin (Neurontin) 300 mg PO QID COLLIN Stop: 11/21/18 08:59 Last Admin: 10/22/18 14:55 Dose: 300 mg Documented by: Glucagon (Glucagen) 1 mg SQ UD PRN; Protocol PRN Reason: Hypoglycemia Protocol Stop: 11/21/18 02:28 Glucose (Glucose 40%) 15 - 30 gm PO UD PRN; Protocol PRN Reason: Hypoglycemia Protocol Stop: 11/21/18 02:28 Glucose (Dex4 Glucose) 4 - 8 tabs PO UD PRN; Protocol PRN Reason: Hypoglycemia Protocol Stop: 11/21/18 02:28 Aztreonam 1,000 mg/ Dextrose 110 mls @ 100 mls/hr IV Q8H COLLIN Stop: 11/01/18 13:29 Last Admin: 10/22/18 14:55 Dose: 100 mls/hr Documented by: Insulin Aspart (Novolog Flexpen) 0 units SC ACHS [facility] Stop: 11/21/18 07:29 Last Admin: 10/22/18 12:50 Dose: 6 units Documented by: Insulin Glargine (Lantus Solostar Pen) 20 units SQ BID CO[facility] Stop: 11/21/18 08:59 Last Admin: 10/22/18 08:41 Dose: 20 units Documented by: Lamotrigine (Lamictal) 200 mg PO HS [facility] Stop: 11/21/18 20:59 Memantine (Namenda) 5 mg PO BID [facility] Stop: 11/21/18 08:59 Last Admin: 10/22/18 08:33 Dose: 5 mg Documented by: Metoprolol Tartrate (Lopressor) 12.5 mg PO BID [facility] Stop: 11/21/18 08:59 Last Admin: 10/22/18 08:32 Dose: 12.5 mg Documented by: Miscellaneous (Carbohydrates For Hypoglycemia) 15 - 30 gm PO UD PRN PRN Reason: Hypoglycemia Treatment Stop: 11/21/18 02:28 Nitroglycerin (Nitrostat) 0.4 mg SL PRN PRN PRN Reason: Chest Pain Stop: 11/21/18 02:28 Ondansetron HCl (Zofran) 4 mg IV Q6H PRN PRN Reason: Nausea Stop: 11/21/18 02:28 Paroxetine HCl (Paxil) 20 mg PO DAILY [facility] Stop: 11/21/18 08:59 Last Admin: 10/22/18 08:33 Dose: 20 mg Documented by: Tiotropium [place] (Spiriva) 1 puffs INH DAILY [facility] Stop: 11/21/18 08:59 Last Admin: 10/22/18 08:37 Dose: 1 puffs Documented by: Resident Activity Tracking Resident Involvement: Resident Care Provided Care Provided: Adult Hospital Medicine
--- NOTE | 2018-10-22 17:07 | Surgery Consultation ---
Date of Consultation October 22, 2018 Assessment & Plan (1) Cholecystitis with cholelithiasis: unable to obtain MRCP b/c of pacemaker will recheck LFT's in AM. if stable/decreased, will plan lap dante with IOC if LFT's worsen, will d/w GI regarding ERCP and lap dante discussed options/risks ( bleeding/infection/dvt/pe/mi/cva/bile leaks/injury to an organ etc...) questions answered (2) Abnormal LFTs: History of Present Illness Attending Physician: Asuncion Bliss MD History of Present Illness Patient with a 2-day history of upper abdominal pain and nausea.Workup has revealed an ultrasound with pericholecystic fluid and thickened gallbladder wall. His pain originally was excruciating but he is feeling better now. Patient with a 2-day history of upper abdominal pain and nausea.He also has elevated LFTs including an elevated total bilirubin Allergies Allergy/AdvReac Type Severity Reaction Status Date / Time bee venom protein (honey bee) Allergy Unknown SWELLING Verified 10/21/18 23:50 codeine Allergy Unknown HALLUCINATI Verified 10/21/18 23:50 NG Penicillins Allergy Unknown UNKNOWN Verified 10/21/18 23:50 Sulfa (Sulfonamide Allergy Unknown "SULFA": Verified 10/21/18 23:50 Antibiotics) RASH Home Medications Home Medications Medication Instructions Recorded Confirmed Type acetaminophen [Tylenol] 325 mg PO DIRECTED PRN 10/21/18 10/21/18 History albuterol sulfate [Proventil HFA] 2 puff INHALATION QID PRN 10/21/18 10/21/18 History aspirin 0.5 mg PO DAILY 10/21/18 10/21/18 History budesonide-formoterol [Symbicort] 2 puff INHALATION BID 10/21/18 10/22/18 History clindamycin HCl 600 mg PO DIRECTED 10/21/18 10/21/18 History epinephrine [EpiPen] 0.3 mg IM Q3H PRN 10/21/18 10/21/18 History finasteride 5 mg PO DAILY 10/21/18 10/21/18 History metoprolol tartrate 12.5 mg PO BID 10/21/18 10/21/18 History nitroglycerin [Nitrostat] 0.4 mg SUBLINGUAL DIRECTED PRN 10/21/18 10/21/18 History atorvastatin [Lipitor] 40 mg PO HS 10/22/18 10/22/18 History buspirone 30 mg PO TID 10/22/18 10/22/18 History donepezil 10 mg PO DAILY 10/22/18 10/22/18 History duloxetine 60 mg PO DAILY 10/22/18 10/22/18 History furosemide [Lasix] 20 mg PO DAILY 10/22/18 10/22/18 History gabapentin 300 mg PO QID 10/22/18 10/22/18 History glimepiride 4 mg PO BID 10/22/18 10/22/18 History hydrocortisone 1 applic TOPICAL HS PRN 10/22/18 10/22/18 History insulin glargine [Lantus Solostar 24 unit SUBCUT QAM 10/22/18 10/22/18 History U-100 Insulin] insulin glargine [Lantus Solostar 26 unit SUBCUT QPM 10/22/18 10/22/18 History U-100 Insulin] lamotrigine 200 mg PO HS 10/22/18 10/22/18 History memantine 5 mg PO BID 10/22/18 10/22/18 History paroxetine HCl 20 mg PO DAILY 10/22/18 10/22/18 History saxagliptin [Onglyza] 5 mg PO DAILY 10/22/18 10/22/18 History sildenafil 20 mg PO DIRECTED 10/22/18 10/22/18 History tiotropium bromide [Spiriva with 1 cap INHALATION DAILY 10/22/18 10/22/18 History HandiHaler] Patient History Medical History Myocardial infarction Pacemaker Diabetes mellitus COPD exacerbation BPH (benign prostatic hyperplasia) CAD (coronary artery disease) CKD (chronic kidney disease) Dementia HTN (hypertension), benign TIA (transient ischemic attack) Surgical History S/P aortic valve replacement Status post cardiac pacemaker procedure Social History Preferred Language: Maltese Communication Ability: Effective Beliefs That Will Affect Care: None Current Living Situation: Spouse Current Living Situation Comment: House Other Information That Helps Us Care for You: No Feels Safe at Home: Yes Safety Concerns: Feels Safe At This Time Smoking Status: Former smoker Hx Alcohol Use: No Hx Substance Use: No Physical Exam Vital Signs (Past 24 Hours): Last Vital Signs Temp 36.6 C 10/22/18 15:14 Pulse 91 H 10/22/18 15:14 Resp 18 10/22/18 15:14 BP 145/86 H 10/22/18 15:14 Pulse Ox 95 10/22/18 15:14 Physical Exam: alert/oriented. nad Heent: no jaundice visible. eomi. pearla Heart: RRR Lungs: slight wheezes b/l. decrease bs's in bases abd: soft. mild RUQ ttp. no g/r/r ext: no c/c/e
[2018-10-22] MEDS: lamoTRIgine 100 MG TAB PO SCH (20:03)
--- NOTE | 2018-10-22 23:00 | Consultation Report ---
DATE OF CONSULTATION: 10/22/2018 REQUESTING PHYSICIAN: Martha Rivers DO CUB REPORTER: William Langston DO, [facility]; Raymundo Saba MD who is the patient's primary campaign director. REASON FOR CONSULTATION: Epigastric discomfort with a history of known coronary artery disease. Dear Dr. Rivers: Thank you for requesting cardiology consultation on Mr. Wright. Yesterday approximately 2 hours before his discomfort started, he had eaten turkey gravy and waffles. Two hours later, he had significant epigastric discomfort with abdominal distention and bloating and significant abdominal discomfort. He had some mild diaphoresis with it. He did take a medicine for GERD, which did not help. He called 911 and by the time he arrived to the hospital, his symptoms had resolved. His symptoms were different than his typical anginal symptoms, which in the past had been central chest tightness or discomfort into his jaws the time of his heart attack. He has chronic dyspnea on exertion and remains functional class II. He describes his dyspnea as stable. His family thinks he is more short of breath in the last 6 months or so. He can climb the basement stairs sometimes he has to stop half way other times he does not. He has had no chest discomfort or chest pressure with it. He denies any presyncope, syncope, palpitations, fluttering, skips. Denies any PND, orthopnea, lower extremity edema, symptoms of claudication. He is currently pain free. His troponins are negative. His EKG: Atrial sinus rhythm with a ventricular paced rhythm and there are no acute changes to suggest: Acute coronary syndrome on the paced rhythm. Of note, he did have a CAT scan of his chest within the last year which did suggest gallstones. REVIEW OF SYSTEMS: The rest of his systems otherwise negative. PAST MEDICAL HISTORY: 1. Coronary artery disease with a history of multiple angioplasty and stenting procedures, most recently in 2001. 2. Echo 08/16/2018 mildly dilated left ventricle. EF 50%-55% with a bioprosthetic aortic valve replacement. 3. Myocardial perfusion study 09/02/2016, no ischemic changes, prior RCA and apical infarcts with preserved left ventricular systolic function. 4. Dilated ascending aorta at 4.3 cm which is stable. 5. Mild COPD. 6. Diabetes mellitus type 2. 7. Elevated LFTs with known gallstones based on a prior CAT scan. 8. BPH. 9. Dementia. 10. Depression. 11. 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 12. Status post aortic valve replacement. 13. Chronic kidney disease with baseline creatinine 1.7. FAMILY HISTORY: Noncontributory. SOCIAL HISTORY: He lives with his spouse. He is a former smoker. Denies any alcohol. He is retired. MEDICATIONS: Reviewed in electronic medical record. ALLERGIES: BEE VENOM, CODEINE, PENICILLIN AND SULFA. PHYSICAL EXAMINATION: GENERAL: He is awake, alert, oriented x3. He is in no acute distress. He looks stated age. VITAL SIGNS: Her heart rate 92, blood pressure 137/78, respirations 18, sat 96% on 2 L. HEENT: Mildly reduced carotid upstrokes. No evidence of carotid bruits. Jugular pressure do not appear elevated. His sclerae are anicteric. His hearing is normal. LUNGS: Decreased breath sounds in the bases. No rales, rhonchi or wheezing. HEART: Regular rate and rhythm. There is a soft systolic ejection murmur at the right sternal border. ABDOMEN: Soft, nontender, nondistended. Positive bowel sounds. EXTREMITIES: No clubbing, cyanosis or edema. PSYCHIATRIC: His affect appeared appropriate. EKG sinus rhythm (atrial sensed, ventricularly paced). As noted, his troponins are negative. His LFTs are abnormal at 128 and 96. Of note, 10/11/2018, they were normal. Sodium 139, potassium 4.7, BUN 28, creatinine 1.69. Echocardiogram and stress as discussed above. IMPRESSION: 1. Epigastric discomfort after eating a fatty meal most consistent with acute cholecystitis. His liver function tests are abnormal. His ultrasound shows a small amount of pericholecystic fluid and top normal thickening of his gallbladder. I do not believe that this represents an acute coronary syndrome or progression of his coronary artery disease. 2. Coronary artery disease. 3. Shortness of breath and dyspnea on exertion, likely multifactorial. 4. Permanent pacemaker. 5. Aortic valve replacement with normal function. As I discussed with Chencho and his family, I believe his discomfort was gastrointestinal in origin. There is concern he may be more short of breath and I discussed him that that is an important conversation to have with Dr. Saba as an outpatient. He has many reasons to be short of breath. It is possible his CARTER represents an anginal equivalent. He is known to have chronic obstructive pulmonary disease, although his last CAT scan suggested it was only mild. It is possible he has pulmonary hypertension and/or sleep apnea contributing to his symptoms as well. At this point, I will continue his outpatient medical regimen and he can follow up with Dr. Saba. I would avoid fatty foods and if he continues to have discomfort, he may need to consider surgical consultation. CHEIKH
[2018-10-23] MEDS: AZTREONAM 1,000 MG in DEXTROSE 5% 100 ML IV SCH ×3 (05:24→21:40)
[2018-10-23 05:34] LABS: Albumin Level 3.8 gm/dl (3.4-5.0); BUN Creatinine Ratio 18.9 (10-20); Calcium 8.3 mg/dl (8.5-10.1); Creatinine Clr Calc Pharmacy 65.3 ml/min; Est GFR (African American) 71.8; Est GFR (Non-African American) 61.9; Potassium 4.2 mmol/L (3.5-5.1)
[2018-10-23 05:38] LABS: Albumin Globulin Ratio 0.9 (0.9-2); Bilirubin Direct 0.7 mg/dl (0-0.2); Bilirubin,Total 2.6 mg/dl (0.2-1); Globulin 4.3 gm/dl (2.5-4.0); Total Protein 8.1 gm/dl (6.4-8.2)
--- NOTE | 2018-10-23 06:52 | Anesthesiology Consultation ---
Date of Service October 23, 2018 Assessment & Plan Chart Review Chart Review: Acceptable Risk for Surgery and Patient NOT seen in Pre Admission Testing Consults Requested none Pt was evaluated by car chaser, Dr. Rose, yesterday who does not think his chest discomfort is cardiac in nature. Troponin negative x 3. Echo 08/16/2018 mildly dilated left ventricle. EF 50%-55% with a bioprosthetic aortic valve replacement. Myocardial perfusion study 09/02/2016, no ischemic changes, prior RCA and apical infarcts with preserved left ventricular systolic function. ASA [id number] Proposed Anesthesia Anesthesia Type: General Risk / Benefits Reviewed With: PT / POA / Parent / Guardian, Accepts Plan and Informed Consent Obtained NPO Date Last Intake of Fluids: 10/22/18 Time Last Intake of Fluids: 22:00 Date Last Intake of Solids: 10/22/18 Time Last Intake of Solids: 22:00 History Surgery Operation Date: 10/23/18 08:30 Proposed Procedures p Laparoscopic Cholecystectomy with Cholangiogram - Yadiel Bolton, DO Height/Weight Height: 1.77 m Weight: 94.6 kg Allergies Allergy/AdvReac Type Severity Reaction Status Date / Time bee venom protein (honey bee) Allergy Unknown SWELLING Verified 10/21/18 23:50 codeine Allergy Unknown HALLUCINATI Verified 10/21/18 23:50 NG Penicillins Allergy Unknown UNKNOWN Verified 10/21/18 23:50 Sulfa (Sulfonamide Allergy Unknown "SULFA": Verified 10/21/18 23:50 Antibiotics) RASH Medications Home Medications Medication Instructions Recorded Confirmed Last Taken acetaminophen [Tylenol] 325 mg PO DIRECTED PRN 10/21/18 10/21/18 Unknown albuterol sulfate [Proventil HFA] 2 puff INHALATION QID PRN 10/21/18 10/21/18 Unknown aspirin 0.5 mg PO DAILY 10/21/18 10/21/18 Unknown budesonide-formoterol [Symbicort] 2 puff INHALATION BID 10/21/18 10/22/18 Unknown clindamycin HCl 600 mg PO DIRECTED 10/21/18 10/21/18 Unknown epinephrine [EpiPen] 0.3 mg IM Q3H PRN 10/21/18 10/21/18 Unknown finasteride 5 mg PO DAILY 10/21/18 10/21/18 Unknown metoprolol tartrate 12.5 mg PO BID 10/21/18 10/21/18 Unknown nitroglycerin [Nitrostat] 0.4 mg SUBLINGUAL DIRECTED PRN 10/21/18 10/21/18 Unknown atorvastatin [Lipitor] 40 mg PO HS 10/22/18 10/22/18 Unknown buspirone 30 mg PO TID 10/22/18 10/22/18 Unknown donepezil 10 mg PO DAILY 10/22/18 10/22/18 Unknown duloxetine 60 mg PO DAILY 10/22/18 10/22/18 Unknown furosemide [Lasix] 20 mg PO DAILY 10/22/18 10/22/18 Unknown gabapentin 300 mg PO QID 10/22/18 10/22/18 Unknown glimepiride 4 mg PO BID 10/22/18 10/22/18 Unknown hydrocortisone 1 applic TOPICAL HS PRN 10/22/18 10/22/18 Unknown insulin glargine [Lantus Solostar 24 unit SUBCUT QAM 10/22/18 10/22/18 Unknown U-100 Insulin] insulin glargine [Lantus Solostar 26 unit SUBCUT QPM 10/22/18 10/22/18 Unknown U-100 Insulin] lamotrigine 200 mg PO HS 10/22/18 10/22/18 Unknown memantine 5 mg PO BID 10/22/18 10/22/18 Unknown paroxetine HCl 20 mg PO DAILY 10/22/18 10/22/18 Unknown saxagliptin [Onglyza] 5 mg PO DAILY 10/22/18 10/22/18 Unknown sildenafil 20 mg PO DIRECTED 10/22/18 10/22/18 Unknown tiotropium bromide [Spiriva with 1 cap INHALATION DAILY 10/22/18 10/22/18 Unknown HandiHaler] hydrocodone-acetaminophen [[place]] 1 - 2 tab PO Q6H PRN #30 tab 10/23/18 Unknown Active Medications Generic Name Dose Route Start Last Admin Trade Name Freq PRN Reason Stop Dose Admin Aspirin 0.5 mg 10/22/18 09:00 10/23/18 07:58 Ecotrin Ectab PO 11/21/18 08:59 Not Given DAILY COLLIN Budesonide/Formoterol Fumarate 2 puffs 10/22/18 09:00 10/23/18 08:02 Symbicort 160mcg/4.5mcg INH 11/21/18 08:59 2 puffs BID COLLIN Administration Buspirone HCl 30 mg 10/22/18 09:00 10/23/18 07:56 Buspar PO 11/21/18 08:59 30 mg TID COLLIN Administration Donepezil HCl 10 mg 10/22/18 09:00 10/23/18 07:56 Aricept PO 11/21/18 08:59 10 mg DAILY COLLIN Administration Duloxetine HCl 60 mg 10/22/18 09:00 10/23/18 07:57 Cymbalta PO 11/21/18 08:59 60 mg DAILY COLLIN Administration Finasteride 5 mg 10/22/18 09:00 10/23/18 08:01 Proscar PO 11/21/18 08:59 5 mg DAILY COLLIN Administration Furosemide 20 mg 10/22/18 09:00 10/23/18 07:59 Lasix PO 11/21/18 08:59 20 mg DAILY COLLIN Administration Gabapentin 300 mg 10/22/18 09:00 10/23/18 08:00 Neurontin PO 11/21/18 08:59 300 mg QID COLLIN Administration Aztreonam 1,000 mg/ Dextrose 110 mls @ 100 mls/hr 10/22/18 13:30 10/23/18 06 :07 IV 11/01/18 13:29 0 mls/hr Q8H COLLIN Infusion Insulin Aspart 0 units 10/22/18 07:30 10/22/18 21:50 Novolog Flexpen SC 11/21/18 07:29 Not Given ACHS COLLIN Insulin Glargine 20 units 10/22/18 09:00 10/22/18 21:49 Lantus Solostar Pen SQ 11/21/18 08:59 20 units BID COLLIN Administration Lamotrigine 200 mg 10/22/18 21:00 10/22/18 20:03 Lamictal PO 11/21/18 20:59 200 mg HS COLLIN Administration Memantine 5 mg 10/22/18 09:00 10/23/18 08:00 Namenda PO 11/21/18 08:59 5 mg BID COLLIN Administration Metoprolol Tartrate 12.5 mg 10/22/18 09:00 10/23/18 07:59 Lopressor PO 11/21/18 08:59 12.5 mg BID COLLIN Administration Paroxetine HCl 20 mg 10/22/18 09:00 10/23/18 08:00 Paxil PO 11/21/18 08:59 20 mg DAILY COLLIN Administration Tiotropium [place] 1 puffs 10/22/18 09:00 10/23/18 08:01 Spiriva INH 11/21/18 08:59 1 puffs DAILY COLLIN Administration Beta Suha Beta Suha Taken Within 24 Hours: Yes Past Medical History Medical History Myocardial infarction Pacemaker Placed after AVR due to complete heart block Diabetes mellitus COPD exacerbation No home O2. No h/o hospitalization or intubation. BPH (benign prostatic hyperplasia) CAD (coronary artery disease) Last stent in 2001. Has not had any recent cardiac issues. Has not had to use NTG CKD (chronic kidney disease) Dementia HTN (hypertension), benign TIA (transient ischemic attack) 10 years ago; no deficits Past Family History Family History Other Family history non-contributory Past Surgical History Surgical History H/O cardiac catheterization with stents. Most recent one in 2001 S/P aortic valve replacement 6 years ago Status post cardiac pacemaker procedure for h/o complete heart block s/p his AVR Past Anesthesia History No Hx of Anesthesia Complications and No Family Hx of Anesthesia Complications History of PONV No Motion Sickness Screening History of Motion Sickness: No Social History Smoking Status: Former smoker (Quit 6 years ago) Do You Dip or Chew Tobacco: Yes Hx Alcohol Use: No Hx Substance Use: No Exercise / Class Metabolic Activity II 4-5 Yardwork/Stairs/Walk up hill Physical Exam Vital Signs Last Vital Signs Temp 36.3 C L 10/23/18 07:28 Pulse 86 10/23/18 07:28 Resp 18 10/23/18 07:28 BP 138/78 10/23/18 07:28 Pulse Ox 94 10/23/18 07:28 ENMT Mouth: + poor dentition; no TMJ abnormality and no TMJ clicking Thyromental Distance: > or= 3.5 Finger Breadths Mallampati Class: II Neck normal visual inspection; neck extension not limited Respiratory Auscultation: lungs clear to auscultation bilaterally Cardiovascular Rate/Rhythm: regular rate and regular rhythm Testing Electrocardiogram Date: 10/21/18 Findings: + NSR @ (92 bpm) Normal sinus rhythm Atrial-sensed ventricular-paced rhythm Abnormal ECG No previous ECGs available Confirmed by ANIBAL ROSE ([id number]) on 10/22/2018 1:49:28 PM Chest X-Ray Date: 10/21/18 Findings: + NAD and + cardiomegaly FINDINGS: An AP, portable, upright chest radiograph is correlated with chest CT dated 10/04/2017. The examination is degraded by portable technique and patient rotation. A 2-lead cardiac pacemaker is unchanged in position and partially obscures the left upper chest. The patient is status post midline sternotomy. The heart is enlarged and there is atherosclerotic calcification of the thoracic aorta. The pulmonary vasculature is noncongested. There is mild elevation of the left hemidiaphragm and bibasilar atelectasis. No airspace consolidation or large pleural effusion is identified. Scattered calcified granulomas are similar to previous. No pneumothorax is seen. The skeletal structures are osteopenic. The bony thorax is grossly intact. IMPRESSION: 1. Cardiomegaly and cardiac pacemaker. There is no radiographic evidence of congestive failure. 2. No airspace consolidation or pleural effusion is identified Laboratory Results 10/22/18 06:07 10/23/18 05:02 PT 10.7 Seconds (9.0-12.0) 10/21/18 23:30 INR 1.0 (0.9-1.1) 10/21/18 23:30 APTT 22.3 Seconds (21.0-31.0) 10/21/18 23:30 10/23/18 10/22/18 07:52 20:28 POC Glucose 110 H 127 H
[2018-10-23] MEDS: BusPIRone 15 MG TAB PO SCH ×3 (07:56→21:39)
[2018-10-23] MEDS: DONEPEZIL HCL 10 MG TAB PO SCH (07:56)
[2018-10-23] MEDS: DULOXETINE HCL 60 MG CAP PO SCH (07:57)
[2018-10-23] MEDS: ASPIRIN 81 MG ECTAB PO SCH (07:58)
[2018-10-23] MEDS: METOPROLOL TARTRATE 25 MG TAB PO SCH ×2 (07:59→21:39)
[2018-10-23] MEDS: FUROSEMIDE 20 MG TAB PO SCH (07:59)
[2018-10-23] MEDS: PARoxetine HCl 20 MG TAB PO SCH (08:00)
[2018-10-23] MEDS: GABAPENTIN 300 MG CAP PO SCH ×4 (08:00→21:39)
[2018-10-23] MEDS: MEMANTINE HCL 5 MG TAB PO SCH ×2 (08:00→21:39)
[2018-10-23] MEDS: TIOTROPIUM BROMIDE 5 PUFF/90 MCG INH INH SCH (08:01)
[2018-10-23] MEDS: FINASTERIDE 5 MG TAB PO SCH (08:01)
[2018-10-23] MEDS: BUDESONIDE/FORMOTEROL FUMARATE 160/4.5 60 PUFFS/INHALER INH SCH ×2 (08:02→21:40)
--- NOTE | 2018-10-23 08:08 | History & Physical Bridge Note ---
Date of Service October 23, 2018 History & Physical Bridge Note I have examined the patient, reviewed the History & Physical and in the interval since the performance of the History & Physical I have noted the following changes of clinical significance: no changes noted
[2018-10-23] MEDS ORDERED: ePHEDrine sulfate 50 MG/ML AMP IV PRN (08:11)
[2018-10-23] MEDS ORDERED: PHENYLEPHRINE 100MCG/ML 5ML SYR IV PRN (08:11)
[2018-10-23] MEDS ORDERED: ONDANSETRON INJ 2 MG/ML 2 ML VIAL IV PRN (08:11)
[2018-10-23] MEDS ORDERED: ATROPINE SULFATE 0.1 MG/ML 10ML SYR IV PRN (08:11)
[2018-10-23] MEDS ORDERED: PROPOFOL IV EMULSION 10 MG/ML 20 ML VIAL IV ONE (08:24)
[2018-10-23] MEDS ORDERED: LIDOCAINE HCL 2% 2 ML VIAL/AMP(20MG/ML) INFIL ONE (08:24)
[2018-10-23] MEDS ORDERED: PHENYLEPHRINE HCL 10 MG/ML VIAL ONE (08:24)
[2018-10-23] MEDS ORDERED: DEXAMETHASONE SOD INJ 4 MG/ML VIAL ONE (08:24)
[2018-10-23] MEDS ORDERED: ePHEDrine sulfate 50 MG/ML AMP ONE (08:24)
[2018-10-23] MEDS ORDERED: ONDANSETRON INJ 2 MG/ML 2 ML VIAL ONE (08:24)
[2018-10-23] MEDS ORDERED: GLYCOPYRROLATE 0.2 MG/ML VIAL ONE (08:24)
[2018-10-23] MEDS ORDERED: NEOSTIGMINE METHYLSULFATE 5 MG/5 ML SYR ONE (08:24)
[2018-10-23] MEDS ORDERED: SUCCINYLCHOLINE CHLORIDE 20 MG/ML 10 ML VIAL ONE (08:24)
[2018-10-23] MEDS ORDERED: fentaNYL citrate 100 MCG/2 ML VIAL ONE ×2 (08:25→10:55)
[2018-10-23] MEDS ORDERED: MIDAZOLAM HCL 1 MG/ML 2ML VIAL ONE (08:25)
[2018-10-23] MEDS ORDERED: BUPIVACAINE/EPINEPHRINE 0.5% MPF 1:200,000 30 ML VIAL ONE (08:29)
[2018-10-23] MEDS ORDERED: CONRAY 60% 50 ML VIAL ONE (08:34)
[2018-10-23] MEDS ORDERED: ETOMIDATE 2 MG/ML 20 ML VIAL IV ONE (08:51)
[2018-10-23] MEDS ORDERED: ROCURONIUM BROMIDE 10 MG/ML 5 ML VIAL ONE (09:36)
[2018-10-23] MEDS: INSULIN GLARGINE SOLOSTAR 100 UNITS/ML 3 ML PEN SQ SCH ×2 (09:46→21:39)
[2018-10-23] MEDS: INSULIN ASPART 100 UNITS/ML 3 ML PEN SC SCH ×4 (09:46→21:40)
--- NOTE | 2018-10-23 10:14 | Fluoroscopy Report ---
[place] cholangiogram OR CLINICAL HISTORY: CHOLANGIOGRAM IN OR COMPARISON STUDY: Biliary ultrasound dated 10/22/2018. FLUOROSCOPY TIME: 36 seconds. NUMBER OF FLUOROSCOPIC IMAGES: 8 FINDINGS: 8 fluoroscopic spot images from intraoperative cholangiogram are provided for interpretatio n. There is no ductal dilatation. There are multiple common bile duct filling defects. Diagnostic con siderations include calculi versus air bubbles. There is free flow into duodenum. IMPRESSION: Multiple common bile duct filling defects are visualized. Common bile duct calculi must be considered. Electronically signed by: Jayy Mckeon M.D. 10/23/2018 10:13 AM
--- NOTE | 2018-10-23 10:35 | Operative Report ---
Post Operative Report Pre & Post Diagnosis Operation Date: 10/23/18 08:30 Pre-Op Diagnosis: Calculous Cholecystitis Post-Op Diagnosis: Calculous Cholecystitis;filling defects in CBD Procedure Operation Date: 10/23/18 08:30 Actual Procedures p Laparoscopic Cholecystectomy with Cholangiogram - Yadiel Bolton DO Surgeon Yadiel Bolton DO Car Body Mechanic n/a Estimated Blood Loss 20 Findings Consistent with Post-Op Diagnosis Specimens gallbladder Description of Procedure After informed consent was obtained the patient was taken to the operating room and placed in supine position. After successful intubation the abdomen was shaved sterilely prepped and draped in usual fashion. A supraumbilical incision was made with an 11 blade scalpel and carried down through the soft tissue using cautery. The anterior rectus fascia was opened using electrocautery and 2 #0 Vicryl stay sutures were placed. Peritoneum was entered using blunt finger pen etration and a finger sweep performed. A 12 mm Veloz trocar was placed and the abdomen was insufflated to 18 mmHg. The laparoscope was inserted and the abdomen was examined in 360 degrees. Other than a thickened gallbladder wall no other gross abnormalities were seen. a subxiphoid 5 mm port which would later be converted to a 12 mm port was placed. 2 right upper quadrant 5 mm ports were also placed under direct vision. The patient was placed in a reverse Trendelenburg position and slightly air planed to the left. The gallbladder was thickened. We were able to grasp it and elevated superiorly and laterally. Adhesions were taken down around the neck of the gallbladder using a [place] dissector. This is when we exchanged the 5 mm port for a 12 mm port so I could use a larger clip seat pack inspector. A clip was placed on the distal portion of the cystic duct. I then placed an additional 5 mm port in the right upper quadrant. The cystic duct was divided about 60% of its circumference. We were able to advance a Cholangiocath into the cystic duct and inflated the balloon. We flushed with saline. I had to manipulate it several times but eventually we were able to perform a cholangiogram with contrast. The cholangiogram did show what appeared to be 1-2 filling defects however they were in the distal common bile duct. Contrast did get into the duodenum. Because of the location of the defect I opted not to perform a common bile duct exploration at this time. The right and left hepatic ducts and the common hepatic duct all appeared normal. I then deflated the balloon and removed the Cholangiocath. I clipped the cystic duct twice proximally and finished transecting it. The cystic artery was identified skeletonized clipped and divided as well. There was some spillage of bile from 1 of the grasper sites. This was immediately suctioned up. We then remove the gallbladder from the gallbladder fossa using cautery. It was placed into an Endo Catch bag and removed. Thorough irrigation of the right upper quadrant was performed. Any small bleeding points in the gallbladder fossa were controlled using cautery. At the end of the procedure there was adequate hemostasis and no evidence of any bile leaks. A final look around the abdomen showed no other gross abnormalities. The trochars were all removed and the abdomen was desufflated. The fascia of the camera port was closed using 0 Vicryl in a [id number] fashion. All the wounds were irrigated and closed using 4-0 Monocryl. Marcaine was injected around them for postoperative analgesia and skin glue used as a dressing. The patient was awaken extubated and transferred recovery in stable condition. I attest to the content of the Intraoperative Record and any orders documented t herein. Any exceptions are noted below.
[2018-10-23] MEDS: fentaNYL citrate 100 MCG/2 ML VIAL IV PRN ×4 (10:55→11:10)
--- NOTE | 2018-10-23 11:39 | Anesthesiology Progress Note ---
Date of Service October 23, 2018 Anesthesia Post Procedure Vital Signs Vital Signs: Temp Pulse Pulse Resp BP BP Pulse Ox 10/23/18 11:30 36.4 C L 89 19 103/59 L 95 10/23/18 11:20 36.4 C L 95 H 15 106/65 95 10/23/18 11:10 95 H 17 130/74 91 10/23/18 11:00 95 H 15 130/74 93 10/23/18 10:50 94 H 13 130/74 97 10/23/18 10:40 92 H 14 127/72 97 10/23/18 10:30 36.2 C L 100 H 20 137/84 97 10/23/18 07:28 36.3 C L 86 18 138/78 94 10/23/18 04:53 36.7 C 95 H 20 122/84 90 10/22/18 23:45 36.7 C 92 H 16 120/69 94 10/22/18 19:36 36.7 C 86 20 133/79 95 10/22/18 15:14 36.6 C 91 H 18 145/86 H 95 Pain Intensity Abdomen: Pain Intensity: 0 Notes Mental Status: alert / awake / arousable Patient Amnestic to Procedure: Yes Nausea / Vomiting: adequately controlled Pain: adequately controlled Airway Patency, RR, SpO2: stable & adequate BP & HR: stable & adequate Hydration State: stable & adequate Anesthetic Complications: no major complications apparent
[2018-10-23] MEDS ORDERED: HYDROCODONE/ACETAMOPHEN 5/325MG TAB PO PRN ×2 (11:52)
--- NOTE | 2018-10-23 13:56 | Family Medicine Progress Note ---
Date of Service October 23, 2018 Assessment & Plan (1) Abdominal pain: 73yo gentleman with a complex cardiac PMHx including placement of a pacemaker who presented with epigastric pain and was found to have increased LFTs and an equivocal right upper quadrant US for acute cholecystitis. Cholecys tectomy 10/23. Acute cholecystitis -Surgical removal 10/23. Doing well post-op. -Romney prn for pain. -Pt was afebrile and pain free but in combination with leukocytosis and significantly increased liver enzymes surgery was performed. -On Aztreonam (sulfa and penicillin allergy). CAD -Trops negativex3. -Cariology was consulted for presenting epigastric pain. -continue home ASA, lasix, metoprolol Diabetes -ISS, continue home gabapentin for neuropathic pain HTN -continue home metoprolol COPD -continue home Albuterol prn, budesonide/fomoterol, tiotropium BPH: continue home finasteride Dementia -continue home Aricept, Namenda Depression -continue home buspirone, duloxetine, paxil DVT Proph: SCDs Code Status: Full code Supervising Physician Co-Signing Physician Notes Resident Physician Supervision Note: I independently interviewed and examined the patient and verified the dye history and physical, reviewed labs and image studies, discussed the case with the resident Dr. Blanc and agree with the findings and care plan. Subjective Pt seen postop. Stated he was doing well. Abdomen tender with movement but otherwise pain well controlled. Was eating a regular diet during the exam and tolerating well. Denies N/V, chest pain, SOB, diarrhea, constipation, leg pain. Review of Systems All systems reviewed & are unremarkable except as noted in HPI & below Physical Exam Vital Signs (Past 24 Hours): Last Vital Signs Temp 36.2 C L 10/23/18 12:20 Pulse 89 10/23/18 12:20 Resp 16 10/23/18 12:20 BP 98/61 L 10/23/18 12:20 Pulse Ox 96 10/23/18 12:20 General: Alert. No acute distress HEENT: NC/AT, PERRLA, EOMI, oropharynx moist. Chest: Nontender to palpation. CV: RRR, Normal s1, s2. No murmurs appreciated Resp: Breath sounds clear bilaterally, no increased effort of breathing. Abdomen: Nondistended, 5 white nonbloody bandages in place. Extremities: SCDs on lower extremities, no edema appreciated. Results & Data Laboratory Results Laboratory Results - last 24 hr 10/21/18 10/22/18 10/22/18 23:30 16:55 20:28 Sodium Potassium Chloride Carbon Dioxide Anion Gap BUN Creatinine Est Cr Clr Drug Dosing Est GFR ( Amer) Est GFR (Non-Af Amer) BUN/Creatinine Ratio Glucose POC Glucose 112 H 127 H Calcium Total Bilirubin Direct Bilirubin AST ALT Alkaline Phosphatase Total Protein Albumin Globulin Albumin/Globulin Ratio Hepatitis A IgM Ab NON-REACTIVE Hep B Core IgM Ab NON-REACTIVE 10/23/18 10/23/18 10/23/18 05:02 07:52 11:33 Sodium 136 Potassium 4.2 Chloride 105 Carbon Dioxide 29 Anion Gap 2.0 L BUN 22 H Creatinine 1.17 Est Cr Clr Drug Dosing 65.3 Est GFR ( Amer) 71.8 Est GFR (Non-Af Amer) 61.9 BUN/Creatinine Ratio 18.9 Glucose 82 POC Glucose 110 H 223 H Calcium 8.3 L Total Bilirubin 2.6 H Direct Bilirubin 0.7 H AST 534 H ALT 837 H Alkaline Phosphatase 226 H Total Protein 8.1 Albumin 3.8 Globulin 4.3 H Albumin/Globulin Ratio 0.9 Hepatitis A IgM Ab Hep B Core IgM Ab 10/23/18 12:04 Sodium Potassium Chloride Carbon Dioxide Anion Gap BUN Creatinine Est Cr Clr Drug Dosing Est GFR ( Amer) Est GFR (Non-Af Amer) BUN/Creatinine Ratio Glucose POC Glucose 198 H Calcium Total Bilirubin Direct Bilirubin AST ALT Alkaline Phosphatase Total Protein Albumin Globulin Albumin/Globulin Ratio Hepatitis A IgM Ab Hep B Core IgM Ab Medications Administered Home Medications acetaminophen [Tylenol] 325 mg PO DIRECTED PRN 10/21/18 [History Confirmed 10/21/18] albuterol sulfate [Proventil HFA] 2 puff INHALATION QID PRN 10/21/18 [History Confirmed 10/21/18] aspirin 0.5 mg PO DAILY 10/21/18 [History Confirmed 10/21/18] budesonide-formoterol [Symbicort] 2 puff INHALATION BID 10/21/18 [History Confirmed 10/22/18] clindamycin HCl 600 mg PO DIRECTED 10/21/18 [History Confirmed 10/21/18] epinephrine [EpiPen] 0.3 mg IM Q3H PRN 10/21/18 [History Confirmed 10/21/18] finasteride 5 mg PO DAILY 10/21/18 [History Confirmed 10/21/18] metoprolol tartrate 12.5 mg PO BID 10/21/18 [History Confirmed 10/21/18] nitroglycerin [Nitrostat] 0.4 mg SUBLINGUAL DIRECTED PRN 10/21/18 [History Confirmed 10/21/18] atorvastatin [Lipitor] 40 mg PO HS 10/22/18 [History Confirmed 10/22/18] buspirone 30 mg PO TID 10/22/18 [History Confirmed 10/22/18] donepezil 10 mg PO DAILY 10/22/18 [History Confirmed 10/22/18] duloxetine 60 mg PO DAILY 10/22/18 [History Confirmed 10/22/18] furosemide [Lasix] 20 mg PO DAILY 10/22/18 [History Confirmed 10/22/18] gabapentin 300 mg PO QID 10/22/18 [History Confirmed 10/22/18] glimepiride 4 mg PO BID 10/22/18 [History Confirmed 10/22/18] hydrocortisone 1 applic TOPICAL HS PRN 10/22/18 [History Confirmed 10/22/18] insulin glargine [Lantus Solostar U-100 Insulin] 24 unit SUBCUT QAM 10/22/18 [History Confirmed 10/22/18] insulin glargine [Lantus Solostar U-100 Insulin] 26 unit SUBCUT QPM 10/22/18 [History Confirmed 10/22/18] lamotrigine 200 mg PO HS 10/22/18 [History Confirmed 10/22/18] memantine 5 mg PO BID 10/22/18 [History Confirmed 10/22/18] paroxetine HCl 20 mg PO DAILY 10/22/18 [History Confirmed 10/22/18] saxagliptin [Onglyza] 5 mg PO DAILY 10/22/18 [History Confirmed 10/22/18] sildenafil 20 mg PO DIRECTED 10/22/18 [History Confirmed 10/22/18] tiotropium bromide [Spiriva with HandiHaler] 1 cap INHALATION DAILY 10/22/18 [History Confirmed 10/22/18] hydrocodone-acetaminophen [[place]] 1 - 2 tab PO Q6H PRN #30 tab 10/23/18 [Rx] Active Medications Hydrocodone Bitart/Acetaminophen ([place] 5/325) 2 tab PO Q6 PRN PRN Reason: Severe Pain Stop: 11/06/18 11:51 Hydrocodone Bitart/Acetaminophen ([place] 5/325) 1 tab PO Q6 PRN PRN Reason: Moderate Pain Stop: 11/06/18 11:51 Al Hydrox/Mg Hydrox/Simethicone (Maalox) 30 ml PO Q6H PRN PRN Reason: Dyspepsia Stop: 11/21/18 02:28 Albuterol (Ventolin Hfa) 2 puffs INH QID PRN PRN Reason: sob Stop: 11/21/18 02:28 Aspirin (Ecotrin Ectab) 0.5 mg PO DAILY [facility] [place] Stop: 11/21/18 08:59 Last Admin: 10/23/18 07:58 Dose: Not Given Documented by: Budesonide/Formoterol Fumarate (Symbicort 160mcg/4.5mcg) 2 puffs INH BID [facility] [place] Stop: 11/21/18 08:59 Last Admin: 10/23/18 08:02 Dose: 2 puffs Documented by: Buspirone HCl (Buspar) 30 mg PO TID [facility] [place] Stop: 11/21/18 08:59 Last Admin: 10/23/18 13:44 Dose: 30 mg Documented by: Dextrose (Dextrose 50%) 25 - 50 ml IV UD PRN; Protocol PRN Reason: Hypoglycemia Protocol Stop: 11/21/18 02:28 Donepezil HCl (Aricept) 10 mg PO DAILY [facility] [place] Stop: 11/21/18 08:59 Last Admin: 10/23/18 07:56 Dose: 10 mg Documented by: Duloxetine HCl (Cymbalta) 60 mg PO DAILY [facility] [place] Stop: 11/21/18 08:59 Last Admin: 10/23/18 07:57 Dose: 60 mg Documented by: Finasteride (Proscar) 5 mg PO DAILY [facility] [place] Stop: 11/21/18 08:59 Last Admin: 10/23/18 08:01 Dose: 5 mg Documented by: Furosemide (Lasix) 20 mg PO DAILY [facility] [place] Stop: 11/21/18 08:59 Last Admin: 10/23/18 07:59 Dose: 20 mg Documented by: Gabapentin (Neurontin) 300 mg PO QID [facility] [place] Stop: 11/21/18 08:59 Last Admin: 10/23/18 12:43 Dose: 300 mg Documented by: Glucagon (Glucagen) 1 mg SQ UD PRN; Protocol PRN Reason: Hypoglycemia Protocol Stop: 11/21/18 02:28 Glucose (Glucose 40%) 15 - 30 gm PO UD PRN; Protocol PRN Reason: Hypoglycemia Protocol Stop: 11/21/18 02:28 Glucose (Dex4 Glucose) 4 - 8 tabs PO UD PRN; Protocol PRN Reason: Hypoglycemia Protocol Stop: 11/21/18 02:28 Aztreonam 1,000 mg/ Dextrose 110 mls @ 100 mls/hr IV Q8H [facility] Stop: 11/01/18 13:29 Last Admin: 10/23/18 13:40 Dose: 100 mls/hr Documented by: Insulin Aspart (Novolog Flexpen) 0 units SC ACHS [facility] Stop: 11/21/18 07:29 Last Admin: 10/23/18 12:37 Dose: 3 units Documented by: Insulin Glargine (Lantus Solostar Pen) 20 units SQ BID [facility] [place] Stop: 11/21/18 08:59 Last Admin: 10/23/18 09:46 Dose: Not Given Documented by: Lamotrigine (Lamictal) 200 mg PO HS [facility] [place] Stop: 11/21/18 20:59 Last Admin: 10/22/18 20:03 Dose: 200 mg Documented by: Memantine (Namenda) 5 mg PO BID [facility] [place] Stop: 11/21/18 08:59 Last Admin: 10/23/18 08:00 Dose: 5 mg Documented by: Metoprolol Tartrate (Lopressor) 12.5 mg PO BID [facility] [place] Stop: 11/21/18 08:59 Last Admin: 10/23/18 07:59 Dose: 12.5 mg Documented by: Miscellaneous (Carbohydrates For Hypoglycemia) 15 - 30 gm PO UD PRN PRN Reason: Hypoglycemia Treatment Stop: 11/21/18 02:28 Nitroglycerin (Nitrostat) 0.4 mg SL PRN PRN PRN Reason: Chest Pain Stop: 11/21/18 02:28 Ondansetron HCl (Zofran) 4 mg IV Q6H PRN PRN Reason: Nausea Stop: 11/21/18 02:28 Paroxetine HCl (Paxil) 20 mg PO DAILY [facility] Stop: 11/21/18 08:59 Last Admin: 10/23/18 08:00 Dose: 20 mg Documented by: Tiotropium [place] (Spiriva) 1 puffs INH DAILY [facility] [place] Stop: 11/21/18 08:59 Last Admin: 10/23/18 08:01 Dose: 1 puffs Documented by:
[2018-10-23] MEDS ORDERED: INSULIN ASPART 100 UNITS/ML 3 ML PEN SC ONE (20:51)
[2018-10-23] MEDS: lamoTRIgine 100 MG TAB PO SCH (21:39)
[2018-10-24] MEDS: AZTREONAM 1,000 MG in DEXTROSE 5% 100 ML IV SCH ×3 (05:14→21:19)
[2018-10-24 06:15] LABS: Basophils # (auto) 0.03 K/uL (0-0.2); Basophils % (auto) 0.1 %; Eosinophils # (auto) 0.03 K/uL (0-0.5); Eosinophils % (auto) 0.1 %; Hematocrit (blood only) 31.3 % (42-52); Hemoglobin 10.3 g/dL (14.0-18.0); Immature Granulocytes # (auto) 0.09 K/uL (0.00-0.02); Immature Granulocytes % (auto) 0.4 %; Lymphocytes # (auto) 2.05 K/uL (1.2-3.4); Lymphocytes % (auto) 9.3 %; Mean Corpuscular Hgb Conc 32.9 g/dL (32-36); Mean Corpuscular Volume 96.3 fL (80-100); Mean Platelet Volume 10.7 fL (7.4-10.4); Monocytes # (auto) 1.89 K/uL (0.11-0.59); Monocytes % (auto) 8.6 %; Neutrophils # (auto) 17.91 K/uL (1.4-6.5); Neutrophils % (auto) 81.5 %; Nucleated RBC # (auto) 0.09 K/uL (0-0); Nucleated RBC % (auto) 0.4 %; Platelet Count 262 K/uL (130-400); RDW Coefficient of Variation 19.1 % (11.5-14.5); RDW Standard Deviation 67.3 fL (36.4-46.3); Red Blood Count 3.25 M/uL (4.7-6.1)
[2018-10-24 06:47] LABS: Albumin Level 3.6 gm/dl (3.4-5.0); BUN Creatinine Ratio 21.9 (10-20); Bilirubin Direct 0.7 mg/dl (0-0.2); Calcium 7.8 mg/dl (8.5-10.1); Creatinine Clr Calc Pharmacy 40.6 ml/min; Est GFR (African American) 40.7; Est GFR (Non-African American) 35.1; Potassium 4.4 mmol/L (3.5-5.1)
[2018-10-24 06:50] LABS: Albumin Globulin Ratio 0.9 (0.9-2); Bilirubin,Total 2.1 mg/dl (0.2-1); Globulin 4.1 gm/dl (2.5-4.0); Total Protein 7.7 gm/dl (6.4-8.2)
--- NOTE | 2018-10-24 07:34 | Surgery Progress Note ---
Date of Service October 24, 2018 Assessment & Plan (1) Cholecystitis with cholelithiasis: POD 1 doing ok LFT's still slightly elevated.suspect retained distal CBD stones will consult GI- ? need for ERCP keep NPO until seen by GI Subjective no complaints. pain controlled. Physical Exam Vital Signs (Past 24 Hours): Last Vital Signs Temp 36.7 C 10/24/18 07:13 Pulse 97 H 10/24/18 07:13 Resp 16 10/24/18 07:13 BP 105/63 10/24/18 07:13 Pulse Ox 93 10/24/18 07:13 Physical Exam: alert. nad abd: soft. expected ttp.
--- NOTE | 2018-10-24 08:03 | Anesthesiology Progress Note ---
Date of Service October 24, 2018 Anesthesia Post Procedure Vital Signs Vital Signs: Temp Pulse Pulse Resp BP Pulse Ox Pulse Ox 10/24/18 07:13 36.7 C 97 H 16 105/63 93 10/24/18 04:54 36.9 C 103 H 20 100/63 92 10/23/18 19:56 36.5 C 98 H 20 94/64 L 95 10/23/18 15:21 36.2 C L 78 18 98/63 L 94 10/23/18 13:58 97 H 16 98/65 L 97 10/23/18 12:50 36.4 C L 88 16 98/60 L 96 10/23/18 12:20 36.2 C L 89 16 98/61 L 96 10/23/18 11:50 36.4 C L 89 16 96/57 L 94 94 10/23/18 11:30 36.4 C L 89 19 103/59 L 95 10/23/18 11:20 36.4 C L 95 H 15 106/65 95 10/23/18 11:10 95 H 17 130/74 91 10/23/18 11:00 95 H 15 130/74 93 10/23/18 10:50 94 H 13 130/74 97 10/23/18 10:40 92 H 14 127/72 97 10/23/18 10:30 36.2 C L 100 H 20 137/84 97 Pain Intensity Abdomen: Pain Intensity: 0 Notes Mental Status: alert / awake / arousable and participated in evaluation Patient Amnestic to Procedure: Yes Nausea / Vomiting: adequately controlled Pain: adequately controlled Airway Patency, RR, SpO2: stable & adequate BP & HR: stable & adequate Hydration State: stable & adequate Anesthetic Complications: no major complications apparent
[2018-10-24] MEDS ORDERED: SODIUM CHLORIDE 0.9% 1000ML 500 ML IV STA (08:09)
[2018-10-24] MEDS: INSULIN ASPART 100 UNITS/ML 3 ML PEN SC SCH ×4 (08:17→21:17)
[2018-10-24] MEDS: INSULIN GLARGINE SOLOSTAR 100 UNITS/ML 3 ML PEN SQ SCH ×2 (08:18→21:13)
[2018-10-24] MEDS: FINASTERIDE 5 MG TAB PO SCH (08:19)
[2018-10-24] MEDS: BUDESONIDE/FORMOTEROL FUMARATE 160/4.5 60 PUFFS/INHALER INH SCH ×2 (08:19→21:19)
[2018-10-24] MEDS: MEMANTINE HCL 5 MG TAB PO SCH ×2 (08:20→21:16)
[2018-10-24] MEDS: PARoxetine HCl 20 MG TAB PO SCH (08:20)
[2018-10-24] MEDS: BusPIRone 15 MG TAB PO SCH ×3 (08:20→21:12)
[2018-10-24] MEDS: METOPROLOL TARTRATE 25 MG TAB PO SCH ×2 (08:20→21:15)
[2018-10-24] MEDS: FUROSEMIDE 20 MG TAB PO SCH (08:20)
[2018-10-24] MEDS: DULOXETINE HCL 60 MG CAP PO SCH (08:20)
[2018-10-24] MEDS: DONEPEZIL HCL 10 MG TAB PO SCH (08:20)
[2018-10-24] MEDS: TIOTROPIUM BROMIDE 5 PUFF/90 MCG INH INH SCH (08:21)
[2018-10-24] MEDS: GABAPENTIN 300 MG CAP PO SCH ×4 (08:21→21:17)
[2018-10-24] MEDS: ASPIRIN 81 MG ECTAB PO SCH ×2 (08:22→08:28)
--- NOTE | 2018-10-24 08:59 | Gastrointestinal Consultation ---
Date of Consultation October 24, 2018 Assessment & Plan (1) Cholecystitis with cholelithiasis: 73 year old male who presented with two days of upper abdominal pain, nausea, vomiting, ABD US concerning for acute cholecystitis w/ gallstones. He is now s/p lap cholescystectomy. Symptoms improving, but persistently elevated LFTs w/ concerning IOC. DDX discussed to include retained biliary stones - NPO - Will plan for ERCP today with Dr. Guillen in the OR - indocen pre-operatively - Continue IV ABX for now - coverage for cholangitis Thank you for allowing us to participate in the care of this patient. Please call with any acute changes, questions or concerns. Please see addendum below with additional recommendation from my supervising physician. Present on Admission?: Yes (2) Abnormal LFTs: Present on Admission?: Yes Supervising Physician Co-Signing Physician Notes Attending attestation I have seen, examined this patient, and agree with the findings and above by our mid-level provider MARKIE Brooks. -Pt with retained stone on IOC after cholecystectomy -hopes of an ERCP today with Dr. Guillen -stable at this time, no evidence of cholangitis and pain free History of Present Illness Reason for Consultation: elevated LFTs, ?ERCP Requesting Physician: Hoang Attending Physician: Denis Rashid DO History of Present Illness 73yo male with multiple medical comordities to include CAD s/p stents x 7, most recently in 2001, DM, HTN, HLP, AAA on surveillance, COPD who presented over the weekened to [facility] ED with epigastric abd pain that did not resolve w/ ASA/Nitro. Work up in the ED revelaed markedly elevated LFTs, ultrasound with pericholecystic fluid and thickened gallbladder wall. He is now s/p lap cholecystectomy. He is feeling well. Resoltuion of abd pain. No nausea, vomiting. No fever,chills, CP, SOB. GI to evaluate given concern of positive IOC and persistently elevated LFTs. Of note his LFTs were normal on 10/11/18 IOC: Multiple common bile duct filling defects are visualized. Common bile duct calculi must be considered ABD US: Cholelithiasis and biliary sludge. The gallbladder is mildly distended, the gallbladder wall is top normal in thickness, and there is trace pericholecystic fluid. Findings are equivocal for acute cholecystitis which is not excluded. A sonographic Matthews's sign is reportedly absent. Clinical correlation will be required. If there is clinical concern for acute cholecystitis a nuclear hepatobiliary scan could be considered. Hepatomegaly and hepatic steatosis. Allergies Allergy/AdvReac Type Severity Reaction Status Date / Time bee venom protein (honey bee) Allergy Unknown SWELLING Verified 10/21/18 23:50 codeine Allergy Unknown HALLUCINATI Verified 10/21/18 23:50 NG Penicillins Allergy Unknown UNKNOWN Verified 10/21/18 23:50 Sulfa (Sulfonamide Allergy Unknown "SULFA": Verified 10/21/18 23:50 Antibiotics) RASH Home Medications Home Medications Medication Instructions Recorded Confirmed Type acetaminophen [Tylenol] 325 mg PO DIRECTED PRN 10/21/18 10/21/18 History albuterol sulfate [Proventil HFA] 2 puff INHALATION QID PRN 10/21/18 10/21/18 History aspirin 0.5 mg PO DAILY 10/21/18 10/21/18 History budesonide-formoterol [Symbicort] 2 puff INHALATION BID 10/21/18 10/22/18 History clindamycin HCl 600 mg PO DIRECTED 10/21/18 10/21/18 History epinephrine [EpiPen] 0.3 mg IM Q3H PRN 10/21/18 10/21/18 History finasteride 5 mg PO DAILY 10/21/18 10/21/18 History metoprolol tartrate 12.5 mg PO BID 10/21/18 10/21/18 History nitroglycerin [Nitrostat] 0.4 mg SUBLINGUAL DIRECTED PRN 10/21/18 10/21/18 History atorvastatin [Lipitor] 40 mg PO HS 10/22/18 10/22/18 History buspirone 30 mg PO TID 10/22/18 10/22/18 History donepezil 10 mg PO DAILY 10/22/18 10/22/18 History duloxetine 60 mg PO DAILY 10/22/18 10/22/18 History furosemide [Lasix] 20 mg PO DAILY 10/22/18 10/22/18 History gabapentin 300 mg PO QID 10/22/18 10/22/18 History glimepiride 4 mg PO BID 10/22/18 10/22/18 History hydrocortisone 1 applic TOPICAL HS PRN 10/22/18 10/22/18 History insulin glargine [Lantus Solostar 24 unit SUBCUT QAM 10/22/18 10/22/18 History U-100 Insulin] insulin glargine [Lantus Solostar 26 unit SUBCUT QPM 10/22/18 10/22/18 History U-100 Insulin] lamotrigine 200 mg PO HS 10/22/18 10/22/18 History memantine 5 mg PO BID 10/22/18 10/22/18 History paroxetine HCl 20 mg PO DAILY 10/22/18 10/22/18 History saxagliptin [Onglyza] 5 mg PO DAILY 10/22/18 10/22/18 History sildenafil 20 mg PO DIRECTED 10/22/18 10/22/18 History tiotropium bromide [Spiriva with 1 cap INHALATION DAILY 10/22/18 10/22/18 History HandiHaler] hydrocodone-acetaminophen [Angelica] 1 - 2 tab PO Q6H PRN #30 tab 10/23/18 Rx Patient History Medical History Myocardial infarction Pacemaker Placed after AVR due to complete heart block Diabetes mellitus COPD exacerbation No home O2. No h/o hospitalization or intubation. BPH (benign prostatic hyperplasia) CAD (coronary artery disease) Last stent in 2001. Has not had any recent cardiac issues. Has not had to use NTG CKD (chronic kidney disease) Dementia HTN (hypertension), benign TIA (transient ischemic attack) 10 years ago; no deficits Surgical History H/O cardiac catheterization with stents. Most recent one in 2001 S/P aortic valve replacement 6 years ago Status post cardiac pacemaker procedure for h/o complete heart block s/p his AVR Family History Other Family history non-contributory Social History Preferred Language: [place] Communication Ability: Effective Beliefs That Will Affect Care: None Current Living Situation: Spouse Current Living Situation Comment: House Other Information That Helps Us Care for You: No Feels Safe at Home: Yes Safety Concerns: Feels Safe At This Time Smoking Status: Former smoker (Quit 6 years ago) Hx Alcohol Use: No Hx Substance Use: No Review of Systems Constitutional: no fever, no weakness and no weight loss Respiratory: no cough, no dyspnea and no wheezing Cardiovascular: no chest pain, no radiating jaw, neck or arm pain, no dyspnea on exertion and no palpitations Gastrointestinal: no abdominal pain, no belching, no heartburn, no nausea, no coffee ground emesis, no hematemesis and no melena Physical Exam Vital Signs (Past 24 Hours): Last Vital Signs Temp 36.7 C 10/24/18 07:13 Pulse 97 H 10/24/18 07:13 Resp 16 10/24/18 07:13 BP 105/63 10/24/18 07:13 Pulse Ox 93 10/24/18 07:13 Constitutional: well developed and well nourished; no acute distress Respiratory: normal respiratory effort, lungs clear to auscultation Cardiovascular: Rate/Rhythm: regular rate and regular rhythm Heart Sounds: normal S1 and normal S2; no click and no cardiac rub Gastrointestinal (Abdomen): Inspection/Auscultation: normal bowel sounds; abdomen not distended Percussion/Palpation: + abdomen tender (mild, generalized) and abdomen soft; no guarding dressings intact on abd Results & Data Laboratory Results 10/24/18 10/24/18 10/24/18 Range/Units 07:41 05:53 05:53 WBC 22.00 H (4.8-10.8) K/uL RBC 3.25 L (4.7-6.1) M/uL Hgb 10.3 L (14.0-18.0) g/dL Hct 31.3 L (42-52) % MCV 96.3 (80-100) fL MCH 31.7 (25-34) pg MCHC 32.9 (32-36) g/dL RDW Std Deviation 67.3 H (36.4-46.3) fL RDW Coeff of Linda 19.1 H (11.5-14.5) % Plt Count 262 (130-400) K/uL MPV 10.7 H (7.4-10.4) fL Immature Gran % (Auto) 0.4 % Neut % (Auto) 81.5 % Lymph % (Auto) 9.3 % Spencer % (Auto) 8.6 % Eos % (Auto) 0.1 % Baso % (Auto) 0.1 % Immature Gran # (Auto) 0.09 H (0.00-0.02) K/uL Neut # (Auto) 17.91 H (1.4-6.5) K/uL Lymph # (Auto) 2.05 (1.2-3.4) K/uL Spencer # (Auto) 1.89 H (0.11-0.59) K/uL Eos # (Auto) 0.03 (0-0.5) K/uL Baso # (Auto) 0.03 (0-0.2) K/uL Absolute Nucleated RBC 0.09 H (0-0) K/uL Nucleated RBC % (auto) 0.4 % Sodium 136 (136-145) mmol/L Potassium 4.4 (3.5-5.1) mmol/L Chloride 100 (98-107) mmol/L Carbon Dioxide 27 (21-32) mmol/L Anion Gap 9.0 (3-11) BUN 41 H D (7-18) mg/dl Creatinine 1.87 H D (0.6-1.4) mg/dl Est Cr Clr Drug Dosing 40.6 ml/min Est GFR ( Amer) 40.7 Est GFR (Non-Af Amer) 35.1 BUN/Creatinine Ratio 21.9 H (10-20) Glucose 169 H (70-99) mg/dl POC Glucose 197 H (70-99) Calcium 7.8 L (8.5-10.1) mg/dl Total Bilirubin 2.1 H (0.2-1) mg/dl Direct Bilirubin 0.7 H (0-0.2) mg/dl AST 355 H (15-37) U/L ALT 660 H (12-78) U/L Alkaline Phosphatase 233 H (45-117) U/L Total Protein 7.7 (6.4-8.2) gm/dl Albumin 3.6 (3.4-5.0) gm/dl Globulin 4.1 H (2.5-4.0) gm/dl Albumin/Globulin Ratio 0.9 (0.9-2) Hepatitis A IgM Ab (NON-REACTIVE) Hep B Core IgM Ab (NON-REACTIVE) 10/24/18 10/23/18 10/23/18 Range/Units 01:52 20:33 20:32 WBC (4.8-10.8) K/uL RBC (4.7-6.1) M/uL Hgb (14.0-18.0) g/dL Hct (42-52) % MCV (80-100) fL MCH (25-34) pg MCHC (32-36) g/dL RDW Std Deviation (36.4-46.3) fL RDW Coeff of Linda (11.5-14.5) % Plt Count (130-400) K/uL MPV (7.4-10.4) fL Immature Gran % (Auto) % Neut % (Auto) % Lymph % (Auto) % Spencer % (Auto) % Eos % (Auto) % Baso % (Auto) % Immature Gran # (Auto) (0.00-0.02) K/uL Neut # (Auto) (1.4-6.5) K/uL Lymph # (Auto) (1.2-3.4) K/uL Spencer # (Auto) (0.11-0.59) K/uL Eos # (Auto) (0-0.5) K/uL Baso # (Auto) (0-0.2) K/uL Absolute Nucleated RBC (0-0) K/uL Nucleated RBC % (auto) % Sodium (136-145) mmol/L Potassium (3.5-5.1) mmol/L Chloride (98-107) mmol/L Carbon Dioxide (21-32) mmol/L Anion Gap (3-11) BUN (7-18) mg/dl Creatinine (0.6-1.4) mg/dl Est Cr Clr Drug Dosing ml/min Est GFR ( Amer) Est GFR (Non-Af Amer) BUN/Creatinine Ratio (10-20) Glucose (70-99) mg/dl POC Glucose 193 H 385 H* 374 H* (70-99) Calcium (8.5-10.1) mg/dl Total Bilirubin (0.2-1) mg/dl Direct Bilirubin (0-0.2) mg/dl AST (15-37) U/L ALT (12-78) U/L Alkaline Phosphatase (45-117) U/L Total Protein (6.4-8.2) gm/dl Albumin (3.4-5.0) gm/dl Globulin (2.5-4.0) gm/dl Albumin/Globulin Ratio (0.9-2) Hepatitis A IgM Ab (NON-REACTIVE) Hep B Core IgM Ab (NON-REACTIVE) 10/23/18 10/23/18 10/23/18 Range/Units 16:29 16:23 12:04 WBC (4.8-10.8) K/uL RBC (4.7-6.1) M/uL Hgb (14.0-18.0) g/dL Hct (42-52) % MCV (80-100) fL MCH (25-34) pg MCHC (32-36) g/dL RDW Std Deviation (36.4-46.3) fL RDW Coeff of Linda (11.5-14.5) % Plt Count (130-400) K/uL MPV (7.4-10.4) fL Immature Gran % (Auto) % Neut % (Auto) % Lymph % (Auto) % Spencer % (Auto) % Eos % (Auto) % Baso % (Auto) % Immature Gran # (Auto) (0.00-0.02) K/uL Neut # (Auto) (1.4-6.5) K/uL Lymph # (Auto) (1.2-3.4) K/uL Spencer # (Auto) (0.11-0.59) K/uL Eos # (Auto) (0-0.5) K/uL Baso # (Auto) (0-0.2) K/uL Absolute Nucleated RBC (0-0) K/uL Nucleated RBC % (auto) % Sodium (136-145) mmol/L Potassium (3.5-5.1) mmol/L Chloride (98-107) mmol/L Carbon Dioxide (21-32) mmol/L Anion Gap (3-11) BUN (7-18) mg/dl Creatinine (0.6-1.4) mg/dl Est Cr Clr Drug Dosing ml/min Est GFR ( Amer) Est GFR (Non-Af Amer) BUN/Creatinine Ratio (10-20) Glucose (70-99) mg/dl POC Glucose 383 H* 364 H* 198 H (70-99) Calcium (8.5-10.1) mg/dl Total Bilirubin (0.2-1) mg/dl Direct Bilirubin (0-0.2) mg/dl AST (15-37) U/L ALT (12-78) U/L Alkaline Phosphatase (45-117) U/L Total Protein (6.4-8.2) gm/dl Albumin (3.4-5.0) gm/dl Globulin (2.5-4.0) gm/dl Albumin/Globulin Ratio (0.9-2) Hepatitis A IgM Ab (NON-REACTIVE) Hep B Core IgM Ab (NON-REACTIVE) 10/23/18 10/21/18 Range/Units 11:33 23:30 WBC (4.8-10.8) K/uL RBC (4.7-6.1) M/uL Hgb (14.0-18.0) g/dL Hct (42-52) % MCV (80-100) fL MCH (25-34) pg MCHC (32-36) g/dL RDW Std Deviation (36.4-46.3) fL RDW Coeff of Linda (11.5-14.5) % Plt Count (130-400) K/uL MPV (7.4-10.4) fL Immature Gran % (Auto) % Neut % (Auto) % Lymph % (Auto) % Spencer % (Auto) % Eos % (Auto) % Baso % (Auto) % Immature Gran # (Auto) (0.00-0.02) K/uL Neut # (Auto) (1.4-6.5) K/uL Lymph # (Auto) (1.2-3.4) K/uL Spencer # (Auto) (0.11-0.59) K/uL Eos # (Auto) (0-0.5) K/uL Baso # (Auto) (0-0.2) K/uL Absolute Nucleated RBC (0-0) K/uL Nucleated RBC % (auto) % Sodium (136-145) mmol/L Potassium (3.5-5.1) mmol/L Chloride (98-107) mmol/L Carbon Dioxide (21-32) mmol/L Anion Gap (3-11) BUN (7-18) mg/dl Creatinine (0.6-1.4) mg/dl Est Cr Clr Drug Dosing ml/min Est GFR ( Amer) Est GFR (Non-Af Amer) BUN/Creatinine Ratio (10-20) Glucose (70-99) mg/dl POC Glucose 223 H (70-99) Calcium (8.5-10.1) mg/dl Total Bilirubin (0.2-1) mg/dl Direct Bilirubin (0-0.2) mg/dl AST (15-37) U/L ALT (12-78) U/L Alkaline Phosphatase (45-117) U/L Total Protein (6.4-8.2) gm/dl Albumin (3.4-5.0) gm/dl Globulin (2.5-4.0) gm/dl Albumin/Globulin Ratio (0.9-2) Hepatitis A IgM Ab NON-REACTIVE (NON-REACTIVE) Hep B Core IgM Ab NON-REACTIVE (NON-REACTIVE)
[2018-10-24] MEDS: D5W AND 1/2NSS + 20MEQ KCL 20 MEQ/1,000 ML BAG IV SCH ×2 (09:16→16:10)
--- NOTE | 2018-10-24 09:58 | Family Medicine Progress Note ---
Date of Service October 24, 2018 Assessment & Plan (1) Abdominal pain: 73yo gentleman with a complex cardiac PMHx including placement of a pacemaker who presented with epigastric pain and was found to have increased LFTs and an equivocal right upper quadrant US for acute cholecystitis. Cholecys tectomy 10/23. Epigastric/Abdominal Pain secondary to cholecystitis -Surgical removal 10/23. Doing well post-op. -[place] prn for pain. -RUQ US showed some fluid around gallbladder, gallstones with sludge. Read as equivocal. -Viral Hep Panel- neg for Hep B surface antigen and HCV. Acetaminophen level couldn't be obtained. -Pt was afebrile and pain free but in combination with leukocytosis and signifi cantly increased liver enzymes surgery was performed. -On Aztreonam (sulfa and penicillin allergy). DVT Proph: SCDs Code Status: Full code (2) Cholecystitis with cholelithiasis: post op day #1 - plan is for ERCP for retained CBD stones today pending OR availability. (3) CAD (coronary artery disease): -Trops negativex3. -Cardiology was consulted for presenting epigastric pain. -continue home ASA, lasix, metoprolol (4) Diabetes mellitus: Diabetes -ISS, continue home gabapentin for neuropathic pain (5) Hypertension: -continue home metoprolol (6) COPD (chronic obstructive pulmonary disease): -continue home Albuterol prn, budesonide/fomoterol, tiotropium (7) Dementia: -continue home Aricept, Namenda (8) BPH (benign prostatic hyperplasia): continue home finasteride (9) Depression: -continue home buspirone, duloxetine, paxil Supervising Physician Co-Signing Physician Notes I personally examined the patient and verified all dye points of history and exam, discussed case, and agree with decision making with Dr Martinez. Feeling okay, no abdominal pain, would like to eat more. For ERCP this afternoon. Understands why this needs to be done. Vitals noted, in general he is awake alert oriented x3 pleasant no distress. HEENT normal cephalic atraumatic mucous membranes are moist. Breathing is unlabored no accessory muscle use. Abdomen is soft nondistended nontender no right upper quadrant tenderness/guarding/rebound/rigidity Cholecystitis/cholangitis/retained stonespost cholecystectomy, continue antibiotics, for ERCP this afternoon. Diet as per GI post procedure. DVT prophylaxisSCDs Subjective Mr. Wright reports no worsening of abdominal pain, no diarrhea, no nausea, no vomiting, no fevers or chills, no chest pain or shortness of breath. He reports that plan is for ERCP when OR is available per his discussion with GI this morning. Physical Exam Vital Signs (Past 24 Hours): Last Vital Signs Temp 36.7 C 10/24/18 07:13 Pulse 97 H 10/24/18 07:13 Resp 16 10/24/18 07:13 BP 105/63 10/24/18 07:13 Pulse Ox 93 10/24/18 07:13 Constitutional: WD/WN, vitals as above cooperative and comfortable Eyes: + anicteric sclerae and EOM intact bilaterally Neck: normal visual inspection and trachea midline Cardiovascular: Rate/Rhythm: regular rate and regular rhythm Extremities: no pedal edema Gastrointestinal (Abdomen): Inspection/Auscultation: normal bowel sounds Percussion/Palpation: abdomen soft; no guarding and abdomen not rigid ba ndages in place over surgical sites that are intact, clean, dry without any signs of infection Musculoskeletal: Head/Neck/Chest: normocephalic and head atraumatic Skin: no rashes, warm and dry Neurologic: moves all extremities and awake Psychiatric: Orientation: alert and cooperative Affect: euthymic affect Results & Data Laboratory Results Laboratory Results - last 24 hr 10/21/18 10/23/18 10/23/18 23:30 11:33 12:04 WBC RBC Hgb Hct MCV MCH MCHC RDW Std Deviation RDW Coeff of Linda Plt Count MPV Immature Gran % (Auto) Neut % (Auto) Lymph % (Auto) Mcmullen % (Auto) Eos % (Auto) Baso % (Auto) Immature Gran # (Auto) Neut # (Auto) Lymph # (Auto) [place] # (Auto) Eos # (Auto) Baso # (Auto) Absolute Nucleated RBC Nucleated RBC % (auto) Sodium Potassium Chloride Carbon Dioxide Anion Gap BUN Creatinine Est Cr Clr Drug Dosing Est GFR ( Amer) Est GFR (Non-Af Amer) BUN/Creatinine Ratio Glucose POC Glucose 223 H 198 H Calcium Total Bilirubin Direct Bilirubin AST ALT Alkaline Phosphatase Total Protein Albumin Globulin Albumin/Globulin Ratio Hepatitis A IgM Ab NON-REACTIVE Hep B Core IgM Ab NON-REACTIVE 10/23/18 10/23/18 10/23/18 16:23 16:29 20:32 WBC RBC Hgb Hct MCV MCH MCHC RDW Std Deviation RDW Coeff of Linda Plt Count MPV Immature Gran % (Auto) Neut % (Auto) Lymph % (Auto) [place]mullen % (Auto) Eos % (Auto) Baso % (Auto) Immature Gran # (Auto) Neut # (Auto) Lymph # (Auto) [place] # (Auto) Eos # (Auto) Baso # (Auto) Absolute Nucleated RBC Nucleated RBC % (auto) Sodium Potassium Chloride Carbon Dioxide Anion Gap BUN Creatinine Est Cr Clr Drug Dosing Est GFR ( Amer) Est GFR (Non-Af Amer) BUN/Creatinine Ratio Glucose POC Glucose 364 H* 383 H* 374 H* Calcium Total Bilirubin Direct Bilirubin AST ALT Alkaline Phosphatase Total Protein Albumin Globulin Albumin/Globulin Ratio Hepatitis A IgM Ab Hep B Core IgM Ab 10/23/18 10/24/18 10/24/18 20:33 01:52 05:53 WBC RBC Hgb Hct MCV MCH MCHC RDW Std Deviation RDW Coeff of Linda Plt Count MPV Immature Gran % (Auto) Neut % (Auto) Lymph % (Auto) [place] % (Auto) Eos % (Auto) Baso % (Auto) Immature Gran # (Auto) Neut # (Auto) Lymph # (Auto) [place] # (Auto) Eos # (Auto) Baso # (Auto) Absolute Nucleated RBC Nucleated RBC % (auto) Sodium 136 Potassium 4.4 Chloride 100 Carbon Dioxide 27 Anion Gap 9.0 BUN 41 H D Creatinine 1.87 H D Est Cr Clr Drug Dosing 40.6 Est GFR ( Amer) 40.7 Est GFR (Non-Af Amer) 35.1 BUN/Creatinine Ratio 21.9 H Glucose 169 H POC Glucose 385 H* 193 H Calcium 7.8 L Total Bilirubin 2.1 H Direct Bilirubin 0.7 H AST 355 H ALT 660 H Alkaline Phosphatase 233 H Total Protein 7.7 Albumin 3.6 Globulin 4.1 H Albumin/Globulin Ratio 0.9 Hepatitis A IgM Ab Hep B Core IgM Ab 10/24/18 10/24/18 05:53 07:41 WBC 22.00 H RBC 3.25 L Hgb 10.3 L Hct 31.3 L MCV 96.3 MCH 31.7 MCHC 32.9 RDW Std Deviation 67.3 H RDW Coeff of Linda 19.1 H Plt Count 262 MPV 10.7 H Immature Gran % (Auto) 0.4 Neut % (Auto) 81.5 Lymph % (Auto) 9.3 Mcmullen % (Auto) 8.6 Eos % (Auto) 0.1 Baso % (Auto) 0.1 Immature Gran # (Auto) 0.09 H Neut # (Auto) 17.91 H Lymph # (Auto) 2.05 Mcmullen # (Auto) 1.89 H Eos # (Auto) 0.03 Baso # (Auto) 0.03 Absolute Nucleated RBC 0.09 H Nucleated RBC % (auto) 0.4 Sodium Potassium Chloride Carbon Dioxide Anion Gap BUN Creatinine Est Cr Clr Drug Dosing Est GFR ( Amer) Est GFR (Non-Af Amer) BUN/Creatinine Ratio Glucose POC Glucose 197 H Calcium Total Bilirubin Direct Bilirubin AST ALT Alkaline Phosphatase Total Protein Albumin Globulin Albumin/Globulin Ratio Hepatitis A IgM Ab Hep B Core IgM Ab Medications Administered Aspirin (Ecotrin Ectab) 0.5 mg PO DAILY [facility] Stop: 11/21/18 08:59 Last Admin: 10/24/18 08:28 Dose: Not Given Documented by: [id number] Admin: 10/23/18 07:58 Dose: Not Given Documented by: [id number] Admin: 10/22/18 08:34 Dose: 0.5 mg Documented by: [id number] Budesonide/Formoterol Fumarate (Symbicort 160mcg/4.5mcg) 2 puffs INH BID [facility] Stop: 11/21/18 08:59 Last Admin: 10/24/18 08:19 Dose: 2 puffs Documented by: [id number] Admin: 10/23/18 21:40 Dose: 2 puffs Documented by: [id number] Admin: 10/23/18 08:02 Dose: 2 puffs Documented by: [id number] Admin: 10/22/18 20:04 Dose: 2 puffs Documented by: [id number] Admin: 10/22/18 08:41 Dose: 2 puffs Documented by: [id number] Buspirone HCl (Buspar) 30 mg PO TID [facility] Stop: 11/21/18 08:59 Last Admin: 10/24/18 08:20 Dose: 30 mg Documented by: [id number] Admin: 10/23/18 21:39 Dose: 30 mg Documented by: [id number] Admin: 10/23/18 13:44 Dose: 30 mg Documented by: [id number] Admin: 10/23/18 07:56 Dose: 30 mg Documented by: [id number] Admin: 10/22/18 20:03 Dose: 30 mg Documented by: [id number] Admin: 10/22/18 14:55 Dose: 30 mg Documented by: [id number] Admin: 10/22/18 08:33 Dose: 30 mg Documented by: [id number] Donepezil HCl (Aricept) 10 mg PO DAILY [facility] Stop: 11/21/18 08:59 Last Admin: 10/24/18 08:20 Dose: 10 mg Documented by: [id number] Admin: 10/23/18 07:56 Dose: 10 mg Documented by: [id number] Admin: 10/22/18 08:32 Dose: 10 mg Documented by: [id number] Duloxetine HCl (Cymbalta) 60 mg PO DAILY [facility] Stop: 11/21/18 08:59 Last Admin: 10/24/18 08:20 Dose: 60 mg Documented by: [id number] Admin: 10/23/18 07:57 Dose: 60 mg Documented by: [id number] Admin: 10/22/18 08:32 Dose: 60 mg Documented by: [id number] Finasteride (Proscar) 5 mg PO DAILY [facility] Stop: 11/21/18 08:59 Last Admin: 10/24/18 08:19 Dose: 5 mg Documented by: [id number] Admin: 10/23/18 08:01 Dose: 5 mg Documented by: [id number] Admin: 10/22/18 08:32 Dose: 5 mg Documented by: [id number] Furosemide (Lasix) 20 mg PO DAILY [facility] Stop: 11/21/18 08:59 Last Admin: 10/24/18 08:20 Dose: 20 mg Documented by: [id number] Admin: 10/23/18 07:59 Dose: 20 mg Documented by: [id number] Admin: 10/22/18 08:33 Dose: 20 mg Documented by: [id number] Gabapentin (Neurontin) 300 mg PO QID [facility] Stop: 11/21/18 08:59 Last Admin: 10/24/18 08:21 Dose: 300 mg Documented by: [id number] Admin: 10/23/18 21:39 Dose: 300 mg Documented by: [id number] Admin: 10/23/18 17:24 Dose: 300 mg Documented by: [id number] Admin: 10/23/18 12:43 Dose: 300 mg Documented by: [id number] Admin: 10/23/18 08:00 Dose: 300 mg Documented by: [id number] Admin: 10/22/18 20:03 Dose: 300 mg Documented by: [id number] Admin: 10/22/18 17:24 Dose: 300 mg Documented by: [id number] Admin: 10/22/18 14:55 Dose: 300 mg Documented by: [id number] Admin: 10/22/18 08:33 Dose: 300 mg Documented by: [id number] Aztreonam 1,000 mg/ Dextrose 110 mls @ 100 mls/hr IV Q8H [facility] Stop: 11/01/18 13:29 Last Infusion: 10/24/18 06:46 Dose: 0 mls/hr Documented by: [id number] Infusion: 10/24/18 05:47 Dose: 100 mls/hr Documented by: [id number] Infusion: 10/24/18 05:22 Dose: 0 mls/hr Documented by: [id number] Admin: 10/24/18 05:14 Dose: 100 mls/hr Documented by: [id number] Infusion: 10/23/18 22:46 Dose: 0 mls/hr Documented by: [id number] Admin: 10/23/18 21:40 Dose: 100 mls/hr Documented by: [id number] Infusion: 10/23/18 15:14 Dose: 0 mls/hr Documented by: [id number] Admin: 10/23/18 13:40 Dose: 100 mls/hr Documented by: [id number] Infusion: 10/23/18 13:40 Dose: 0 mls/hr Documented by: [id number] Infusion: 10/23/18 06:07 Dose: 0 mls/hr Documented by: [id number] Admin: 10/23/18 05:24 Dose: 100 mls/hr Documented by: [id number] Infusion: 10/22/18 22:55 Dose: 0 mls/hr Documented by: [id number] Admin: 10/22/18 21:49 Dose: 100 mls/hr Documented by: [id number] Infusion: 10/22/18 16:14 Dose: 0 mls/hr Documented by: [id number] Admin: 10/22/18 14:55 Dose: 100 mls/hr Documented by: [id number] Potassium Chloride/Dextrose/Sod Cl (D5w And 1/2nss + 20meq Kcl) 20 meq in 1,000 mls @ 120 mls/hr IV .Q8H20M [facility] Stop: 11/23/18 08:44 Last Admin: 10/24/18 09:16 Dose: 120 mls/hr Documented by: [id number] Insulin Aspart (Novolog Flexpen) 0 units SC ACHS [facility] Stop: 11/21/18 07:29 Last Admin: 10/24/18 08:17 Dose: 4 units Documented by: [id number] Cosigned by: [id number] Admin: 10/23/18 21:40 Dose: 17 units Documented by: [id number] Cosigned by: [id number] Admin: 10/23/18 17:24 Dose: 20 units Documented by: [id number] Cosigned by: [id number] Admin: 10/23/18 12:37 Dose: 3 units Documented by: [id number] Cosigned by: [id number] Admin: 10/23/18 09:46 Dose: Not Given Documented by: [id number] Cosigned by: [id number] Admin: 10/22/18 21:50 Dose: Not Given Documented by: [id number] Cosigned by: [id number] Admin: 10/22/18 17:23 Dose: 7 units Documented by: [id number] Cosigned by: [id number] Admin: 10/22/18 12:50 Dose: 6 units Documented by: [id number] Cosigned by: [id number] Admin: 10/22/18 08:39 Dose: 10 units Documented by: [id number] Cosigned by: [id number] Insulin Glargine (Lantus Solostar Pen) 20 units SQ BID [facility] Stop: 11/21/18 08:59 Last Admin: 10/24/18 08:18 Dose: 20 units Documented by: [id number] Cosigned by: [id number] Admin: 10/23/18 21:39 Dose: 20 units Documented by: [id number] Cosigned by: [id number] Admin: 10/23/18 09:46 Dose: Not Given Documented by: [id number] Cosigned by: [id number] Admin: 10/22/18 21:49 Dose: 20 units Documented by: [id number] Cosigned by: [id number] Admin: 10/22/18 08:41 Dose: 20 units Documented by: [id number] Cosigned by: [id number] Lamotrigine (Lamictal) 200 mg PO HS [facility] Stop: 11/21/18 20:59 Last Admin: 10/23/18 21:39 Dose: 200 mg Documented by: [id number] Admin: 10/22/18 20:03 Dose: 200 mg Documented by: [id number] Memantine (Namenda) 5 mg PO BID [facility] Stop: 11/21/18 08:59 Last Admin: 10/24/18 08:20 Dose: 5 mg Documented by: [id number] Admin: 10/23/18 21:39 Dose: 5 mg Documented by: [id number] Admin: 10/23/18 08:00 Dose: 5 mg Documented by: [id number] Admin: 10/22/18 20:03 Dose: 5 mg Documented by: [id number] Admin: 10/22/18 08:33 Dose: 5 mg Documented by: [id number] Metoprolol Tartrate (Lopressor) 12.5 mg PO BID [facility] Stop: 11/21/18 08:59 Last Admin: 10/24/18 08:20 Dose: 12.5 mg Documented by: [id number] Admin: 10/23/18 21:39 Dose: Not Given Documented by: [id number] Admin: 10/23/18 07:59 Dose: 12.5 mg Documented by: [id number] Admin: 10/22/18 20:03 Dose: 12.5 mg Documented by: [id number] Admin: 10/22/18 08:32 Dose: 12.5 mg Documented by: [id number] Paroxetine HCl (Paxil) 20 mg PO DAILY [facility] Stop: 11/21/18 08:59 Last Admin: 10/24/18 08:20 Dose: 20 mg Documented by: [id number] Admin: 10/23/18 08:00 Dose: 20 mg Documented by: [id number] Admin: 10/22/18 08:33 Dose: 20 mg Documented by: [id number] Tiotropium [place] (Spiriva) 1 puffs INH DAILY [facility] Stop: 11/21/18 08:59 Last Admin: 10/24/18 08:21 Dose: 1 puffs Documented by: [id number] Admin: 10/23/18 08:01 Dose: 1 puffs Documented by: [id number] Admin: 10/22/18 08:37 Dose: 1 puffs Documented by: [id number]
[2018-10-24] MEDS ORDERED: POLYETHYLENE (MIRALAX) 17 GM PACK PO PRN (10:34)
--- NOTE | 2018-10-24 12:24 | Anesthesiology Consultation ---
Date of Service October 24, 2018 Assessment & Plan (1) Encounter for pre-operative examination: Chart Review Chart Review: Acceptable Risk for Surgery Consults Requested none ASA ASA4 Proposed Anesthesia Anesthesia Type: General Risk / Benefits Reviewed With: PT / POA / Parent / Guardian, Accepts Plan and Informed Consent Obtained NPO Date Last Intake of Fluids: 10/22/18 Time Last Intake of Fluids: 22:00 Date Last Intake of Solids: 10/22/18 Time Last Intake of Solids: 22:00 History Surgery Operation Date: 10/23/18 08:30 Proposed Procedures p Laparoscopic Cholecystectomy with Cholangiogram - Yadiel Bolton, DO Operation Date: 10/24/18 15:15 Proposed Procedures p Endoscopic Retrograde Cholangiopancreatogram - Lesley Guillen Height/Weight Height: 5 ft 9.5 in Weight: 92.9 kg Allergies Allergy/AdvReac Type Severity Reaction Status Date / Time bee venom protein (honey bee) Allergy Unknown SWELLING Verified 10/21/18 23:50 codeine Allergy Unknown HALLUCINATI Verified 10/21/18 23:50 NG Penicillins Allergy Unknown UNKNOWN Verified 10/21/18 23:50 Sulfa (Sulfonamide Allergy Unknown "SULFA": Verified 10/21/18 23:50 Antibiotics) RASH Medications Home Medications Medication Instructions Recorded Confirmed Last Taken acetaminophen [Tylenol] 325 mg PO DIRECTED PRN 10/21/18 10/21/18 Unknown albuterol sulfate [Proventil HFA] 2 puff INHALATION QID PRN 10/21/18 10/21/18 Unknown aspirin 0.5 mg PO DAILY 10/21/18 10/21/18 Unknown budesonide-formoterol [Symbicort] 2 puff INHALATION BID 10/21/18 10/22/18 Unknown clindamycin HCl 600 mg PO DIRECTED 10/21/18 10/21/18 Unknown epinephrine [EpiPen] 0.3 mg IM Q3H PRN 10/21/18 10/21/18 Unknown finasteride 5 mg PO DAILY 10/21/18 10/21/18 Unknown metoprolol tartrate 12.5 mg PO BID 10/21/18 10/21/18 Unknown nitroglycerin [Nitrostat] 0.4 mg SUBLINGUAL DIRECTED PRN 10/21/18 10/21/18 Unknown atorvastatin [Lipitor] 40 mg PO HS 10/22/18 10/22/18 Unknown buspirone 30 mg PO TID 10/22/18 10/22/18 Unknown donepezil 10 mg PO DAILY 10/22/18 10/22/18 Unknown duloxetine 60 mg PO DAILY 10/22/18 10/22/18 Unknown furosemide [Lasix] 20 mg PO DAILY 10/22/18 10/22/18 Unknown gabapentin 300 mg PO QID 10/22/18 10/22/18 Unknown glimepiride 4 mg PO BID 10/22/18 10/22/18 Unknown hydrocortisone 1 applic TOPICAL HS PRN 10/22/18 10/22/18 Unknown insulin glargine [Lantus Solostar 24 unit SUBCUT QAM 10/22/18 10/22/18 Unknown U-100 Insulin] insulin glargine [Lantus Solostar 26 unit SUBCUT QPM 10/22/18 10/22/18 Unknown U-100 Insulin] lamotrigine 200 mg PO HS 10/22/18 10/22/18 Unknown memantine 5 mg PO BID 10/22/18 10/22/18 Unknown paroxetine HCl 20 mg PO DAILY 10/22/18 10/22/18 Unknown saxagliptin [Onglyza] 5 mg PO DAILY 10/22/18 10/22/18 Unknown sildenafil 20 mg PO DIRECTED 10/22/18 10/22/18 Unknown tiotropium bromide [Spiriva with 1 cap INHALATION DAILY 10/22/18 10/22/18 Unknown HandiHaler] hydrocodone-acetaminophen [[place]] 1 - 2 tab PO Q6H PRN #30 tab 10/23/18 Unknown Active Medications Generic Name Dose Route Start Last Admin Trade Name Freq PRN Reason Stop Dose Admin Aspirin 0.5 mg 10/22/18 09:00 10/24/18 08:28 Ecotrin Ectab PO 11/21/18 08:59 Not Given DAILY [facility] Budesonide/Formoterol Fumarate 2 puffs 10/22/18 09:00 10/24/18 08:19 Symbicort 160mcg/4.5mcg INH 11/21/18 08:59 2 puffs BID [facility] Administration Buspirone HCl 30 mg 10/22/18 09:00 10/24/18 08:20 Buspar PO 11/21/18 08:59 30 mg TID [facility] Administration Donepezil HCl 10 mg 10/22/18 09:00 10/24/18 08:20 Aricept PO 11/21/18 08:59 10 mg DAILY [facility] Administration Duloxetine HCl 60 mg 10/22/18 09:00 10/24/18 08:20 Cymbalta PO 11/21/18 08:59 60 mg DAILY [facility] Administration Finasteride 5 mg 10/22/18 09:00 10/24/18 08:19 Proscar PO 11/21/18 08:59 5 mg DAILY [facility] Administration Furosemide 20 mg 10/22/18 09:00 10/24/18 08:20 Lasix PO 11/21/18 08:59 20 mg DAILY [facility] Administration Gabapentin 300 mg 10/22/18 09:00 10/24/18 12:40 Neurontin PO 11/21/18 08:59 300 mg QID [facility] Administration Aztreonam 1,000 mg/ Dextrose 110 mls @ 100 mls/hr 10/22/18 13:30 10/24/18 12:47 IV 11/01/18 13:29 100 mls/hr Q8H [facility] Administration Potassium Chloride/Dextrose/Sod Cl 20 meq in 1,000 mls @ 120 mls/hr 10/24/18 08:45 10/24/18 09:16 D5w And 1/2nss + 20meq Kcl IV 11/23/18 08:44 120 mls/hr .Q8H20M [facility] Administration Insulin Aspart 0 units 10/22/18 07:30 10/24/18 12:40 Novolog Flexpen SC 11/21/18 07:29 5 units ACHS [facility] Administration Insulin Glargine 20 units 10/22/18 09:00 10/24/18 08:18 Lantus Solostar Pen SQ 11/21/18 08:59 20 units BID [facility] Administration Lamotrigine 200 mg 10/22/18 21:00 10/23/18 21:39 Lamictal PO 11/21/18 20:59 200 mg HS [facility] Administration Memantine 5 mg 10/22/18 09:00 10/24/18 08:20 Namenda PO 11/21/18 08:59 5 mg BID [facility] Administration Metoprolol Tartrate 12.5 mg 10/22/18 09:00 10/24/18 08:20 Lopressor PO 11/21/18 08:59 12.5 mg BID [facility] Administration Paroxetine HCl 20 mg 10/22/18 09:00 10/24/18 08:20 Paxil PO 11/21/18 08:59 20 mg DAILY [facility] Administration Tiotropium [place] 1 puffs 10/22/18 09:00 10/24/18 08:21 Spiriva INH 11/21/18 08:59 1 puffs DAILY [facility] Administration Past Medical History Medical History Myocardial infarction Pacemaker Placed after AVR due to complete heart block Diabetes mellitus COPD exacerbation No home O2. No h/o hospitalization or intubation. BPH (benign prostatic hyperplasia) CAD (coronary artery disease) Last stent in 2001. Has not had any recent cardiac issues. Has not had to use NTG CKD (chronic kidney disease) Dementia HTN (hypertension), benign TIA (transient ischemic attack) 10 years ago; no deficits Past Family History Family History Other Family history non-contributory Past Surgical History Surgical History H/O cardiac catheterization with stents. Most recent one in 2001 S/P aortic valve replacement 6 years ago Status post cardiac pacemaker procedure for h/o complete heart block s/p his AVR Past Anesthesia History No Hx of Anesthesia Complications and No Family Hx of Anesthesia Complications History of PONV No Motion Sickness Screening History of Motion Sickness: No Social History Smoking Status: Former smoker (Quit 6 years ago) Do You Dip or Chew Tobacco: Yes Hx Alcohol Use: No Hx Substance Use: No Exercise / Class Metabolic Activity II 4-5 Yardwork/Stairs/Walk up hill Physical Exam Vital Signs Last Vital Signs Temp 98.1 F 10/24/18 13:12 Pulse 93 H 10/24/18 13:12 Resp 20 10/24/18 13:12 BP 107/67 10/24/18 13:12 Pulse Ox 94 10/24/18 13:12 ENMT Mouth: no dentition abnormality Thyromental Distance: > or= 3.5 Finger Breadths Mallampati Class: I Neck normal visual inspection Respiratory normal respiratory effort Auscultation: lungs clear to auscultation bilaterally Cardiovascular Rate/Rhythm: regular rate and regular rhythm Testing Electrocardiogram Date: 10/21/18 Findings: + NSR @ (92 bpm) Normal sinus rhythm Atrial-sensed ventricular-paced rhythm Abnormal ECG No previous ECGs available Confirmed by ANIBAL ROSE ([id number]) on 10/22/2018 1:49:28 PM Chest X-Ray Date: 10/21/18 Findings: + NAD and + cardiomegaly FINDINGS: An AP, portable, upright chest radiograph is correlated with chest CT dated 10/04/2017. The examination is degraded by portable technique and patient rotation. A 2-lead cardiac pacemaker is unchanged in position and partially obscures the left upper chest. The patient is status post midline sternotomy. The heart is enlarged and there is atherosclerotic calcification of the thoracic aorta. The pulmonary vasculature is noncongested. There is mild elevation of the left hemidiaphragm and bibasilar atelectasis. No airspace consolidation or large pleural effusion is identified. Scattered calcified granulomas are similar to previous. No pneumothorax is seen. The skeletal structures are osteopenic. The bony thorax is grossly intact. IMPRESSION: 1. Cardiomegaly and cardiac pacemaker. There is no radiographic evidence of congestive failure. 2. No airspace consolidation or pleural effusion is identified Echocardiogram Date: 08/16/18 EF: 50-55% mildly dilated LV Stress Test Date: 09/02/16 Type: nuclear no ischemic changes, prior RCA and apical infarcts with preserved left ventricular systolic function Laboratory Results 10/24/18 05:53 10/24/18 05:53 PT 10.7 Seconds (9.0-12.0) 10/21/18 23:30 INR 1.0 (0.9-1.1) 10/21/18 23:30 APTT 22.3 Seconds (21.0-31.0) 10/21/18 23:30 10/24/18 10/24/18 10/24/18 11:35 07:41 01:52 POC Glucose 201 H 197 H 193 H
[2018-10-24] MEDS ORDERED: LIDOCAINE HCL 2% 2 ML VIAL/AMP(20MG/ML) INFIL ONE (12:59)
[2018-10-24] MEDS ORDERED: NEOSTIGMINE METHYLSULFATE 5 MG/5 ML SYR ONE (12:59)
[2018-10-24] MEDS ORDERED: DEXAMETHASONE SOD INJ 4 MG/ML VIAL ONE (12:59)
[2018-10-24] MEDS ORDERED: MIDAZOLAM HCL 1 MG/ML 2ML VIAL ONE (12:59)
[2018-10-24] MEDS ORDERED: ONDANSETRON INJ 2 MG/ML 2 ML VIAL ONE (12:59)
[2018-10-24] MEDS ORDERED: PROPOFOL IV EMULSION 10 MG/ML 20 ML VIAL IV ONE (12:59)
[2018-10-24] MEDS ORDERED: fentaNYL citrate 100 MCG/2 ML VIAL ONE (12:59)
[2018-10-24] MEDS ORDERED: GLYCOPYRROLATE 0.2 MG/ML VIAL ONE (12:59)
[2018-10-24] MEDS ORDERED: INDOMETHACIN 50 MG SUPP PR ONE (13:00)
[2018-10-24] MEDS ORDERED: LARYING-O-JET KIT (LTA) ONE (13:01)
--- NOTE | 2018-10-24 13:24 | History & Physical Report ---
Date of Service October 24, 2018 Assessment & Plan (1) Cholecystitis with cholelithiasis: Patient with a positve IOC during cholecystectomy over the weekend. We are planing for ERCP today, we have discussed the risks to include bleeding, infection, perforation, pain, pancreatitis and failed biliary cannulation. History of Present Illness Chief Complaint: Abnormal IOC Primary Care Provider: Leandro Rodrigues MD Patient s/p cholecystectomy found to have a positive IOC now with elevated liver tests. ERCP requested for biliary decompression. Allergies Allergy/AdvReac Type Severity Reaction Status Date / Time bee venom protein (honey bee) Allergy Unknown SWELLING Verified 10/21/18 23:50 codeine Allergy Unknown HALLUCINATI Verified 10/21/18 23:50 NG Penicillins Allergy Unknown UNKNOWN Verified 10/21/18 23:50 Sulfa (Sulfonamide Allergy Unknown "SULFA": Verified 10/21/18 23:50 Antibiotics) RASH Home Medications Home Medications Medication Instructions Recorded Confirmed Type acetaminophen [Tylenol] 325 mg PO DIRECTED PRN 10/21/18 10/21/18 History albuterol sulfate [Proventil HFA] 2 puff INHALATION QID PRN 10/21/18 10/21/18 History aspirin 0.5 mg PO DAILY 10/21/18 10/21/18 History budesonide-formoterol [Symbicort] 2 puff INHALATION BID 10/21/18 10/22/18 History clindamycin HCl 600 mg PO DIRECTED 10/21/18 10/21/18 History epinephrine [EpiPen] 0.3 mg IM Q3H PRN 10/21/18 10/21/18 History finasteride 5 mg PO DAILY 10/21/18 10/21/18 History metoprolol tartrate 12.5 mg PO BID 10/21/18 10/21/18 History nitroglycerin [Nitrostat] 0.4 mg SUBLINGUAL DIRECTED PRN 10/21/18 10/21/18 History atorvastatin [Lipitor] 40 mg PO HS 10/22/18 10/22/18 History buspirone 30 mg PO TID 10/22/18 10/22/18 History donepezil 10 mg PO DAILY 10/22/18 10/22/18 History duloxetine 60 mg PO DAILY 10/22/18 10/22/18 History furosemide [Lasix] 20 mg PO DAILY 10/22/18 10/22/18 History gabapentin 300 mg PO QID 10/22/18 10/22/18 History glimepiride 4 mg PO BID 10/22/18 10/22/18 History hydrocortisone 1 applic TOPICAL HS PRN 10/22/18 10/22/18 History insulin glargine [Lantus Solostar 24 unit SUBCUT QAM 10/22/18 10/22/18 History U-100 Insulin] insulin glargine [Lantus Solostar 26 unit SUBCUT QPM 10/22/18 10/22/18 History U-100 Insulin] lamotrigine 200 mg PO HS 10/22/18 10/22/18 History memantine 5 mg PO BID 10/22/18 10/22/18 History paroxetine HCl 20 mg PO DAILY 10/22/18 10/22/18 History saxagliptin [Onglyza] 5 mg PO DAILY 10/22/18 10/22/18 History sildenafil 20 mg PO DIRECTED 10/22/18 10/22/18 History tiotropium bromide [Spiriva with 1 cap INHALATION DAILY 10/22/18 10/22/18 History HandiHaler] hydrocodone-acetaminophen [[place]] 1 - 2 tab PO Q6H PRN #30 tab 10/23/18 Rx Past Med/Surg History Medical History Myocardial infarction Pacemaker Placed after AVR due to complete heart block Diabetes mellitus COPD exacerbation No home O2. No h/o hospitalization or intubation. BPH (benign prostatic hyperplasia) CAD (coronary artery disease) Last stent in 2001. Has not had any recent cardiac issues. Has not had to use NTG CKD (chronic kidney disease) Dementia HTN (hypertension), benign TIA (transient ischemic attack) 10 years ago; no deficits Surgical History H/O cardiac catheterization with stents. Most recent one in 2001 S/P aortic valve replacement 6 years ago Status post cardiac pacemaker procedure for h/o complete heart block s/p his AVR Family History Other Family history non-contributory Social History Preferred Language: Ukrainian Communication Ability: Effective Beliefs That Will Affect Care: None Current Living Situation: Spouse Current Living Situation Comment: House Other Information That Helps Us Care for You: No Feels Safe at Home: Yes Safety Concerns: Feels Safe At This Time Smoking Status: Former smoker (Quit 6 years ago) Hx Alcohol Use: No Hx Substance Use: No Physical Exam Vital Signs (Past 24 Hours): Last Vital Signs Temp 36.7 C 10/24/18 11:16 Pulse 98 H 10/24/18 11:16 Resp 16 10/24/18 11:16 BP 102/61 10/24/18 11:16 Pulse Ox 95 10/24/18 11:16 Constitutional: well developed and well nourished; no acute distress and not ill appearing Eyes: scleral icterus noted Neck: trachea midline, no thyromegaly Respiratory: normal respiratory effort; no retractions and no cough Cardiovascular: Heart Sounds: + murmur Gastrointestinal (Abdomen): Percussion/Palpation: + abdomen tender Code Status & VTE Plan VTE Prophylaxis Plan VTE Prophylaxis will be ordered: Yes
[2018-10-24] MEDS ORDERED: fentaNYL citrate 100 MCG/2 ML VIAL IV PRN (13:30)
[2018-10-24] MEDS ORDERED: ONDANSETRON INJ 2 MG/ML 2 ML VIAL IV PRN (13:30)
[2018-10-24] MEDS ORDERED: ATROPINE SULFATE 0.1 MG/ML 10ML SYR IV PRN (13:30)
[2018-10-24] MEDS ORDERED: ePHEDrine sulfate 50 MG/ML AMP IV PRN (13:30)
[2018-10-24] MEDS ORDERED: ROCURONIUM BROMIDE 10 MG/ML 5 ML VIAL ONE (14:15)
--- NOTE | 2018-10-24 14:25 | GI REPORT ---
Patient Name: Chencho Wright Procedure Date: 10/24/2018 1:34 PM Date of : 1945 Admit Type: Inpatient Age: 73 Gender: Male Attending MD: Lesley Guillen DO Procedure: ERCP Providers: Lesley Guillen DO Referring MD: Yadiel Ramos Indications: Abdominal pain of suspected biliary origin, Filling defect on intraoperative cholangiogram, Jaundice Medicines: General Anesthesia Complications: No immediate complications. Estimated blood loss: Minimal. Estimated Blood Loss: Estimated blood loss was minimal. Procedure: Pre-Anesthesia Assessment: - Prior to the procedure, a History and Physical was performed, and patient medications, allergies and sensitivities were reviewed. The patient's tolerance of previous anesthesia was reviewed. - The risks and benefits of the procedure and the sedation options and risks were discussed with the patient. All questions were answered and informed consent was obtained. - Patient identification and proposed procedure were verified prior to the procedure by the physician, the nurse and the design verification engineer. The procedure was verified in the procedure room. - Pre-procedure physical examination revealed no contraindications to sedation. - ASA Grade Assessment: IV - A patient with severe systemic disease that is a constant threat to life. - After reviewing the risks and benefits, the patient was deemed in satisfactory condition to undergo the procedure. - The anesthesia plan was to use general anesthesia. - Immediately prior to administration of medications, the patient was re-assessed for adequacy to receive sedatives. - The heart rate, respiratory rate, oxygen saturations, blood pressure, adequacy of pulmonary ventilation, and response to care were monitored throughout the procedure. - The physical status of the patient was re-assessed after the procedure. After obtaining informed consent, the scope was passed under direct vision. Throughout the procedure, the patient's blood pressure, pulse, and oxygen saturations were monitored continuously. The Scope was introduced through the mouth, and advanced to the duodenum and used to inject contrast into the bile duct. The ERCP was accomplished without difficulty. The patient tolerated the procedure well. Findings: A manager med surg film of the abdomen was obtained. Surgical clips, consistent with a previous cholecystectomy, were seen in the area of the right upper quadrant of the abdomen. The esophagus was successfully intubated under direct vision without detailed examination of the pharynx, larynx, and associated structures. The upper GI tract was traversed under direct vision without detailed examination. Diffuse moderate inflammation characterized by erythema, granularity and aphthous ulcerations was found in the entire examined stomach. The major papilla was normal. The bile duct was deeply cannulated with the short-nosed traction sphincterotome (Omni 35) and 0.035 in Acrobat 2 guidewire, the PD was not injected or cannulated. Contrast was injected. I personally interpreted the bile duct images. Contrast extended to the entire biliary tree. A cholecystectomy had been performed. The middle third of the main bile duct contained filling defect(s) thought to be a stone. Biliary sphincterotomy was made with a monofilament Fusion OMNI sphincterotome using ERBE electrocautery. There was no post-sphincterotomy bleeding. The biliary tree was swept with an 8.5 mm to 15 mm balloon starting at the bifurcation. Many darkly pigmented stones were removed. No stones remained. The total fluoroscopy exposure time was 1 minute and 11 seconds. Indomethacin 100 mg was given via suppository to decrease the risk of post-ERCP pancreatitis (PEP). The endoscope was withdrawn from the patient. Impression: - Diffuse Gastritis. - A filling defect consistent with a stone was seen on the cholangiogram. - The patient has had a cholecystectomy. - Choledocholithiasis was found. Complete removal was accomplished by biliary sphincterotomy and balloon extraction. - Indomethacin given to decrease risk of post-ERCP pancreatitis. Recommendation: - Clear liquid diet today. - Observe patient's clinical course following today's ERCP with therapeutic intervention. - Use Prilosec (omeprazole) 20 mg PO daily for 6 weeks. - Perform an upper GI endoscopy in 3 months . (ensure gastritis resolves) Lesley Guillen D.O. Lesley Guillen DO 10/24/2018 2:25:29 PM This report has been signed electronically. Note Initiated On: 10/24/2018 1:34 PM Number of Addenda: 0 I attest to the content of the Intraoperative Record and orders documented therein, exceptions below {[id number]}
--- NOTE | 2018-10-24 14:26 | Post Operative Brief Note ---
Immediate Post Op Note v1 Date of Surgery October 24, 2018 Pre & Post Diagnosis Operation Date: 10/24/18 15:15 Pre-Op Diagnosis: Cholecystitis with cholelithiasis; suspect cholanganitis Post-Op Diagnosis: Cholecystitis with cholelithiasis; common bile duct stones Procedure Operation Date: 10/24/18 15:15 Actual Procedures p Endoscopic Retrograde Cholangiopancreatogram(Not Applicable) - Lesley Guillen Surgeon Lesley Guillen Broommaker n/a Estimated Blood Loss 0 Findings See Below (choledocholithiasis)
--- NOTE | 2018-10-24 14:29 | Fluoroscopy Report ---
[place] ERCP biliary ductal CLINICAL HISTORY: EXPLORE DUCTS FLUOROSCOPY TIME: 1 minute and 11 seconds. FINDINGS: 13 fluoroscopic spot images were submitted. The ampulla is cannulated and contrast is injec aidan in the common bile duct. A few filling defects within the common bile duct are noted. A balloon s weep was performed. IMPRESSION: Fluoroscopy provided for ERCP. Electronically signed by: Aldo Brooks M.D. 10/24/2018 2:28 PM
--- NOTE | 2018-10-24 15:10 | Anesthesiology Progress Note ---
Date of Service October 24, 2018 Anesthesia Post Procedure Vital Signs Vital Signs: Temp Pulse Pulse Pulse Resp BP BP 10/24/18 15:05 98.1 F 107 H 21 125/67 10/24/18 14:55 110 H 13 112/93 10/24/18 14:45 113 H 16 133/74 10/24/18 14:35 96.8 F L 119 H 19 129/81 10/24/18 13:12 98.1 F 93 H 20 107/67 10/24/18 11:16 98.1 F 98 H 16 102/61 10/24/18 08:00 102 H 10/24/18 07:13 98.1 F 97 H 16 105/63 10/24/18 04:54 98.4 F 103 H 20 100/63 10/23/18 19:56 97.7 F 98 H 20 94/64 L 10/23/18 15:21 97.2 F L 78 18 98/63 L Pulse Ox 10/24/18 15:05 97 10/24/18 14:55 97 10/24/18 14:45 99 10/24/18 14:35 99 10/24/18 13:12 94 10/24/18 11:16 95 10/24/18 08:00 10/24/18 07:13 93 10/24/18 04:54 92 10/23/18 19:56 95 10/23/18 15:21 94 Pain Intensity Abdomen: Pain Intensity: 0 Notes Mental Status: alert / awake / arousable and participated in evaluation Patient Amnestic to Procedure: Yes Nausea / Vomiting: adequately controlled Pain: adequately controlled Airway Patency, RR, SpO2: stable & adequate BP & HR: stable & adequate Hydration State: stable & adequate Anesthetic Complications: no major complications apparent and Pt Satisfied with anesthetic care
[2018-10-24] MEDS: lamoTRIgine 100 MG TAB PO SCH (21:13)
[2018-10-25] MEDS: D5W AND 1/2NSS + 20MEQ KCL 20 MEQ/1,000 ML BAG IV SCH ×2 (01:01→09:45)
[2018-10-25] MEDS: AZTREONAM 1,000 MG in DEXTROSE 5% 100 ML IV SCH ×2 (05:12→13:53)
[2018-10-25 07:07] LABS: Albumin Globulin Ratio 0.9 (0.9-2); Albumin Level 3.5 gm/dl (3.4-5.0); BUN Creatinine Ratio 26.5 (10-20); Bilirubin,Total 1.7 mg/dl (0.2-1); Calcium 8.2 mg/dl (8.5-10.1); Creatinine Clr Calc Pharmacy 56.7 ml/min; Est GFR (African American) 60.9; Est GFR (Non-African American) 52.6; Potassium 5.2 mmol/L (3.5-5.1); Total Protein 7.5 gm/dl (6.4-8.2)
[2018-10-25] MEDS: BusPIRone 15 MG TAB PO SCH (08:00)
[2018-10-25] MEDS: MEMANTINE HCL 5 MG TAB PO SCH (08:00)
[2018-10-25] MEDS: PARoxetine HCl 20 MG TAB PO SCH (08:00)
[2018-10-25] MEDS: METOPROLOL TARTRATE 25 MG TAB PO SCH (08:00)
[2018-10-25] MEDS: FINASTERIDE 5 MG TAB PO SCH (08:00)
[2018-10-25] MEDS: FUROSEMIDE 20 MG TAB PO SCH (08:00)
[2018-10-25] MEDS: TIOTROPIUM BROMIDE 5 PUFF/90 MCG INH INH SCH (08:00)
[2018-10-25] MEDS: DONEPEZIL HCL 10 MG TAB PO SCH (08:00)
[2018-10-25] MEDS: GABAPENTIN 300 MG CAP PO SCH ×2 (08:00→12:36)
[2018-10-25] MEDS: DULOXETINE HCL 60 MG CAP PO SCH (08:00)
[2018-10-25] MEDS: INSULIN ASPART 100 UNITS/ML 3 ML PEN SC SCH ×2 (08:01→12:36)
[2018-10-25] MEDS: BUDESONIDE/FORMOTEROL FUMARATE 160/4.5 60 PUFFS/INHALER INH SCH (08:01)
[2018-10-25] MEDS: INSULIN GLARGINE SOLOSTAR 100 UNITS/ML 3 ML PEN SQ SCH (08:01)
[2018-10-25 08:12] LABS: Basophils # (auto) 0.02 K/uL (0-0.2); Basophils % (auto) 0.1 %; Eosinophils # (auto) 0.04 K/uL (0-0.5); Eosinophils % (auto) 0.2 %; Hematocrit (blood only) 28.3 % (42-52); Hemoglobin 9.2 g/dL (14.0-18.0); Immature Granulocytes # (auto) 0.07 K/uL (0.00-0.02); Immature Granulocytes % (auto) 0.3 %; Lymphocytes # (auto) 1.91 K/uL (1.2-3.4); Lymphocytes % (auto) 9.2 %; Mean Corpuscular Volume 96.6 fL (80-100); Mean Platelet Volume 10.4 fL (7.4-10.4); Monocytes # (auto) 1.47 K/uL (0.11-0.59); Monocytes % (auto) 7.1 %; Neutrophils # (auto) 17.19 K/uL (1.4-6.5); Neutrophils % (auto) 83.1 %; Nucleated RBC # (auto) 0.07 K/uL (0-0); Nucleated RBC % (auto) 0.3 %; Platelet Count 228 K/uL (130-400); RDW Coefficient of Variation 19.5 % (11.5-14.5); Red Blood Count 2.93 M/uL (4.7-6.1)
--- NOTE | 2018-10-25 08:14 | Surgery Progress Note ---
Date of Service October 25, 2018 Assessment & Plan (1) Cholecystitis with cholelithiasis: POD 1 ERCP/POD 2 lap dante advance diet as jessica when ok with GI, d/c per primary-- surgical instructions written Subjective denies pain or nausea, wants to eat and go home, complaining about SCDs, IV and pulse ox Physical Exam Vital Signs (Past 24 Hours): Last Vital Signs Temp 36.7 C 10/25/18 07:13 Pulse 87 10/25/18 07:13 Resp 16 10/25/18 07:13 BP 120/75 10/25/18 07:13 Pulse Ox 98 10/25/18 07:13 Gastrointestinal (Abdomen): Inspection/Auscultation: abdomen not distended Percussion/Palpation: abdomen soft; abdomen nontender
[2018-10-25 08:18] LABS: Mean Corpuscular Hgb Conc 32.5 g/dL (32-36)
--- NOTE | 2018-10-25 08:36 | Gastroenterology Progress Note ---
Date of Service October 25, 2018 Assessment & Plan (1) Cholecystitis with cholelithiasis: 73 year old male who presented with two days of upper abdominal pain, nausea, vomiting, ABD US concerning for acute cholecystitis w/ gallstones. He is now s/p lap cholescystectomy. Symptoms improving, but persistently elevated LFTs w/ concerning IOC. Now S/P ERCP w/ stone removal, no evidence of cholangitis - No GI contraindication to diet as tolerated - No GI contraindication to discharge home - Would repeat LFT in 1 week time to ensure normalization - Start PPI 20 mg daily - EGD in 3 months to ensure resolution of gastritis Thank you for allowing us to participate in the care of this patient. Please call with any acute changes, questions or concerns. Please see addendum below with additional recommendation from my supervising physician. Supervising Physician Co-Signing Physician Notes Attending attestation I have seen, examined this patient, and agree with the findings and above by our mid-level provider MARKIE Brooks. -doing well post ERCP -no pain -Follow up LFT's and EGD with Dr. Guillen Subjective Pt was seen and evaluated, chart reviewed. He is OOB ambulating arond his room. No abd pain. No nausea, vomiting. tolerating diet w/ plans to advance. Wants to go home. No fever, chills, CP, SOB ERCP: - Diffuse Gastritis. A filling defect consistent with a stone was seen on the cholangiogram. The patient has had a cholecystectomy. Choledocholithiasis was found. Complete removal was accomplished by biliary sphincterotomy and balloon extraction. Indomethacin given to decrease risk of post-ERCP pancreatitis. Constitutional: no fever, no body aches, no weakness and no weight loss Respiratory: no cough, no dyspnea, no pain on inspiration and no wheezing Cardiovascular: no chest pain, no radiating jaw, neck or arm pain, no dyspnea on exertion and no palpitations Physical Exam Vital Signs (Past 24 Hours): Last Vital Signs Temp 36.7 C 10/25/18 07:13 Pulse 87 10/25/18 07:13 Resp 16 10/25/18 07:13 BP 120/75 10/25/18 07:13 Pulse Ox 98 10/25/18 07:13 Constitutional: well developed and well nourished; no acute distress Respiratory: normal respiratory effort, lungs clear to auscultation Cardiovascular: Rate/Rhythm: regular rate and regular rhythm Heart Sounds: normal S1 and normal S2; no click and no cardiac rub Gastrointestinal (Abdomen): Inspection/Auscultation: normal bowel sounds; abdomen not distended Percussion/Palpation: abdomen soft; abdomen nontender and no guarding Results & Data Laboratory Results 10/25/18 10/25/18 10/25/18 Range/Units 07:56 06:09 06:09 WBC 20.70 H Cancelled RBC 2.93 L Cancelled Hgb 9.2 L Cancelled Hct 28.3 L Cancelled MCV 96.6 Cancelled MCH 31.4 Cancelled MCHC 32.5 Cancelled RDW Std Deviation 68.0 H Cancelled RDW Coeff of Linda 19.5 H Cancelled Plt Count 228 Cancelled MPV 10.4 Cancelled Immature Gran % (Auto) 0.3 Cancelled Neut % (Auto) 83.1 Cancelled Lymph % (Auto) 9.2 Cancelled [place] % (Auto) 7.1 Cancelled Eos % (Auto) 0.2 Cancelled Baso % (Auto) 0.1 Cancelled Immature Gran # (Auto) 0.07 H Cancelled Neut # (Auto) 17.19 H Cancelled Lymph # (Auto) 1.91 Cancelled [place] # (Auto) 1.47 H Cancelled Eos # (Auto) 0.04 Cancelled Baso # (Auto) 0.02 Cancelled Absolute Nucleated RBC 0.07 H Cancelled Nucleated RBC % (auto) 0.3 Cancelled Neutrophils % (Manual) Cancelled Band Neutrophils % Cancelled Lymphocytes % (Manual) Cancelled Prolymphocyte % Cancelled Reactive Lymphs % (Man) Cancelled Monocytes % (Manual) Cancelled Eosinophils % (Manual) Cancelled Basophils % (Manual) Cancelled Metamyelocytes % (Man) Cancelled Myelocytes % (Man) Cancelled Promyelocytes % (Man) Cancelled Blast Cells % (Manual) Cancelled Plasma Cell % (Manual) Cancelled Other Cells % Cancelled Nucleated RBC % Cancelled Neutrophils # (Manual) Cancelled Band Neutrophils # Cancelled Total Absolute Neuts Cancelled Lymphocytes # (Manual) Cancelled Prolymphocyte # Cancelled Reactive Lymphs # Cancelled Total Abs Lymphocytes Cancelled Monocytes # (Manual) Cancelled Eosinophils # (Manual) Cancelled Basophils # (Manual) Cancelled Metamyelocytes # (Man) Cancelled Myelocytes # (Manual) Cancelled Promyelocytes # (Man) Cancelled Blast Cells # (Man) Cancelled Plasma Cell # (Manual) Cancelled Other Cells # Cancelled Nucleated RBCs # (Man) Cancelled Hypersegmented Neuts Cancelled Hyposegmented Neuts Cancelled Hypogranular Neuts Cancelled Large Granular Lymphs Cancelled # Lrg Granular Lymphs Cancelled Hairy Cells Cancelled Smudge Cells Cancelled Toxic Granulation Cancelled Toxic Vacuolation Cancelled Dohle Bodies Cancelled Jake Rods Cancelled Platelet Estimate Cancelled Hypogranular Platelets Cancelled Clumped Platelets Cancelled Giant Platelets Cancelled Platelet Satelliting Cancelled RBC Morphology Cancelled Polychromasia Cancelled Hypochromasia Cancelled Poikilocytosis Cancelled Basophilic Stippling Cancelled Anisocytosis Cancelled Microcytosis Cancelled Macrocytosis Cancelled Spherocytes Cancelled Pappenheimer Bodies Cancelled Sickle Cells Cancelled Target Cells Cancelled Tear Drop Cells Cancelled Ovalocytes Cancelled Stomatocytes Cancelled Boo-Boring Bodies Cancelled Echinocytes Cancelled Acanthocytes (Spur) Cancelled Rouleaux Cancelled RBC Agglutinates Cancelled Schistocytes Cancelled RBC Morph Comment Cancelled Sezary Cell Cancelled Sodium 139 (136-145) mmol/L Potassium 5.2 H D (3.5-5.1) mmol/L Chloride 106 (98-107) mmol/L Carbon Dioxide 28 (21-32) mmol/L Anion Gap 5.0 (3-11) BUN 36 H (7-18) mg/dl Creatinine 1.34 D (0.6-1.4) mg/dl Est Cr Clr Drug Dosing 56.7 ml/min Est GFR ( Amer) 60.9 Est GFR (Non-Af Amer) 52.6 BUN/Creatinine Ratio 26.5 H (10-20) Glucose 155 H (70-99) mg/dl POC Glucose (70-99) Calcium 8.2 L (8.5-10.1) mg/dl Total Bilirubin 1.7 H (0.2-1) mg/dl AST 169 H (15-37) U/L ALT 489 H (12-78) U/L Alkaline Phosphatase 205 H (45-117) U/L Total Protein 7.5 (6.4-8.2) gm/dl Albumin 3.5 (3.4-5.0) gm/dl Globulin 4.0 (2.5-4.0) gm/dl Albumin/Globulin Ratio 0.9 (0.9-2) 10/25/18 10/24/18 10/24/18 Range/Units 01:54 20:33 20:32 WBC RBC Hgb Hct MCV MCH MCHC RDW Std Deviation RDW Coeff of Linda Plt Count MPV Immature Gran % (Auto) Neut % (Auto) Lymph % (Auto) [place] % (Auto) Eos % (Auto) Baso % (Auto) Immature Gran # (Auto) Neut # (Auto) Lymph # (Auto) [place] # (Auto) Eos # (Auto) Baso # (Auto) Absolute Nucleated RBC Nucleated RBC % (auto) Neutrophils % (Manual) Band Neutrophils % Lymphocytes % (Manual) Prolymphocyte % Reactive Lymphs % (Man) Monocytes % (Manual) Eosinophils % (Manual) Basophils % (Manual) Metamyelocytes % (Man) Myelocytes % (Man) Promyelocytes % (Man) Blast Cells % (Manual) Plasma Cell % (Manual) Other Cells % Nucleated RBC % Neutrophils # (Manual) Band Neutrophils # Total Absolute Neuts Lymphocytes # (Manual) Prolymphocyte # Reactive Lymphs # Total Abs Lymphocytes Monocytes # (Manual) Eosinophils # (Manual) Basophils # (Manual) Metamyelocytes # (Man) Myelocytes # (Manual) Promyelocytes # (Man) Blast Cells # (Man) Plasma Cell # (Manual) Other Cells # Nucleated RBCs # (Man) Hypersegmented Neuts Hyposegmented Neuts Hypogranular Neuts Large Granular Lymphs # Lrg Granular Lymphs Hairy Cells Smudge Cells Toxic Granulation Toxic Vacuolation Dohle Bodies Jake Rods Platelet Estimate Hypogranular Platelets Clumped Platelets Giant Platelets Platelet Satelliting RBC Morphology Polychromasia Hypochromasia Poikilocytosis Basophilic Stippling Anisocytosis Microcytosis Macrocytosis Spherocytes Pappenheimer Bodies Sickle Cells Target Cells Tear Drop Cells Ovalocytes Stomatocytes Boo-Boring Bodies Echinocytes Acanthocytes (Spur) Rouleaux RBC Agglutinates Schistocytes RBC Morph Comment Sezary Cell Sodium (136-145) mmol/L Potassium (3.5-5.1) mmol/L Chloride (98-107) mmol/L Carbon Dioxide (21-32) mmol/L Anion Gap (3-11) BUN (7-18) mg/dl Creatinine (0.6-1.4) mg/dl Est Cr Clr Drug Dosing ml/min Est GFR ( Amer) Est GFR (Non-Af Amer) BUN/Creatinine Ratio (10-20) Glucose (70-99) mg/dl POC Glucose 243 H 410 H* 441 H* (70-99) Calcium (8.5-10.1) mg/dl Total Bilirubin (0.2-1) mg/dl AST (15-37) U/L ALT (12-78) U/L Alkaline Phosphatase (45-117) U/L Total Protein (6.4-8.2) gm/dl Albumin (3.4-5.0) gm/dl Globulin (2.5-4.0) gm/dl Albumin/Globulin Ratio (0.9-2) 10/24/18 10/24/18 10/24/18 Range/Units 16:26 14:49 13:19 WBC RBC Hgb Hct MCV MCH MCHC RDW Std Deviation RDW Coeff of Linda Plt Count MPV Immature Gran % (Auto) Neut % (Auto) Lymph % (Auto) [place] % (Auto) Eos % (Auto) Baso % (Auto) Immature Gran # (Auto) Neut # (Auto) Lymph # (Auto) [place] # (Auto) Eos # (Auto) Baso # (Auto) Absolute Nucleated RBC Nucleated RBC % (auto) Neutrophils % (Manual) Band Neutrophils % Lymphocytes % (Manual) Prolymphocyte % Reactive Lymphs % (Man) Monocytes % (Manual) Eosinophils % (Manual) Basophils % (Manual) Metamyelocytes % (Man) Myelocytes % (Man) Promyelocytes % (Man) Blast Cells % (Manual) Plasma Cell % (Manual) Other Cells % Nucleated RBC % Neutrophils # (Manual) Band Neutrophils # Total Absolute Neuts Lymphocytes # (Manual) Prolymphocyte # Reactive Lymphs # Total Abs Lymphocytes Monocytes # (Manual) Eosinophils # (Manual) Basophils # (Manual) Metamyelocytes # (Man) Myelocytes # (Manual) Promyelocytes # (Man) Blast Cells # (Man) Plasma Cell # (Manual) Other Cells # Nucleated RBCs # (Man) Hypersegmented Neuts Hyposegmented Neuts Hypogranular Neuts Large Granular Lymphs # Lrg Granular Lymphs Hairy Cells Smudge Cells Toxic Granulation Toxic Vacuolation Dohle Bodies Jake Rods Platelet Estimate Hypogranular Platelets Clumped Platelets Giant Platelets Platelet Satelliting RBC Morphology Polychromasia Hypochromasia Poikilocytosis Basophilic Stippling Anisocytosis Microcytosis Macrocytosis Spherocytes Pappenheimer Bodies Sickle Cells Target Cells Tear Drop Cells Ovalocytes Stomatocytes Boo-Boring Bodies Echinocytes Acanthocytes (Spur) Rouleaux RBC Agglutinates Schistocytes RBC Morph Comment Sezary Cell Sodium (136-145) mmol/L Potassium (3.5-5.1) mmol/L Chloride (98-107) mmol/L Carbon Dioxide (21-32) mmol/L Anion Gap (3-11) BUN (7-18) mg/dl Creatinine (0.6-1.4) mg/dl Est Cr Clr Drug Dosing ml/min Est GFR ( Amer) Est GFR (Non-Af Amer) BUN/Creatinine Ratio (10-20) Glucose (70-99) mg/dl POC Glucose 185 H 183 H 224 H (70-99) Calcium (8.5-10.1) mg/dl Total Bilirubin (0.2-1) mg/dl AST (15-37) U/L ALT (12-78) U/L Alkaline Phosphatase (45-117) U/L Total Protein (6.4-8.2) gm/dl Albumin (3.4-5.0) gm/dl Globulin (2.5-4.0) gm/dl Albumin/Globulin Ratio (0.9-2) 10/24/18 Range/Units 11:35 WBC RBC Hgb Hct MCV MCH MCHC RDW Std Deviation RDW Coeff of Linda Plt Count MPV Immature Gran % (Auto) Neut % (Auto) Lymph % (Auto) [place] % (Auto) Eos % (Auto) Baso % (Auto) Immature Gran # (Auto) Neut # (Auto) Lymph # (Auto) [place] # (Auto) Eos # (Auto) Baso # (Auto) Absolute Nucleated RBC Nucleated RBC % (auto) Neutrophils % (Manual) Band Neutrophils % Lymphocytes % (Manual) Prolymphocyte % Reactive Lymphs % (Man) Monocytes % (Manual) Eosinophils % (Manual) Basophils % (Manual) Metamyelocytes % (Man) Myelocytes % (Man) Promyelocytes % (Man) Blast Cells % (Manual) Plasma Cell % (Manual) Other Cells % Nucleated RBC % Neutrophils # (Manual) Band Neutrophils # Total Absolute Neuts Lymphocytes # (Manual) Prolymphocyte # Reactive Lymphs # Total Abs Lymphocytes Monocytes # (Manual) Eosinophils # (Manual) Basophils # (Manual) Metamyelocytes # (Man) Myelocytes # (Manual) Promyelocytes # (Man) Blast Cells # (Man) Plasma Cell # (Manual) Other Cells # Nucleated RBCs # (Man) Hypersegmented Neuts Hyposegmented Neuts Hypogranular Neuts Large Granular Lymphs # Lrg Granular Lymphs Hairy Cells Smudge Cells Toxic Granulation Toxic Vacuolation Dohle Bodies Jake Rods Platelet Estimate Hypogranular Platelets Clumped Platelets Giant Platelets Platelet Satelliting RBC Morphology Polychromasia Hypochromasia Poikilocytosis Basophilic Stippling Anisocytosis Microcytosis Macrocytosis Spherocytes Pappenheimer Bodies Sickle Cells Target Cells Tear Drop Cells Ovalocytes Stomatocytes Boo-Boring Bodies Echinocytes Acanthocytes (Spur) Rouleaux RBC Agglutinates Schistocytes RBC Morph Comment Sezary Cell Sodium (136-145) mmol/L Potassium (3.5-5.1) mmol/L Chloride (98-107) mmol/L Carbon Dioxide (21-32) mmol/L Anion Gap (3-11) BUN (7-18) mg/dl Creatinine (0.6-1.4) mg/dl Est Cr Clr Drug Dosing ml/min Est GFR ( Amer) Est GFR (Non-Af Amer) BUN/Creatinine Ratio (10-20) Glucose (70-99) mg/dl POC Glucose 201 H (70-99) Calcium (8.5-10.1) mg/dl Total Bilirubin (0.2-1) mg/dl AST (15-37) U/L ALT (12-78) U/L Alkaline Phosphatase (45-117) U/L Total Protein (6.4-8.2) gm/dl Albumin (3.4-5.0) gm/dl Globulin (2.5-4.0) gm/dl Albumin/Globulin Ratio (0.9-2)
[2018-10-25] MEDS ORDERED: PANTOprazole 40 MG TAB PO SCH (09:00)
--- NOTE | 2018-10-25 09:07 | Surgery Progress Note ---
Date of Service October 25, 2018 Assessment & Plan (1) Cholecystitis with cholelithiasis: pod 2 doing well advance diet LFT's improved ok from my standpoint for d/c Subjective feeling better. "hungry". would like to go home Physical Exam Vital Signs (Past 24 Hours): Last Vital Signs Temp 36.7 C 10/25/18 07:13 Pulse 87 10/25/18 07:13 Resp 16 10/25/18 07:13 BP 120/75 10/25/18 07:13 Pulse Ox 98 10/25/18 07:13 Physical Exam: alert. nad abd: soft. nt. wounds all look good.
--- NOTE | 2018-10-25 09:56 | Discharge Summary ---
Date of Service October 25, 2018 Admission HPI Per Admitting Provider Mr. Wright is pleasant 73yo male with multiple medical comordities to include CAD s/p stents x 7, most recently in 2001, DM, HTN, HLP, AAA on surveillance, COPD. Patient states that at appx 20:45 he experienced severe epigastric/upper abdominal discomfort. Pain 7/10 in severity, sharp in nature. Non-exertional/non-radiating/non-pleuritic, associated with nausea, bloating and diaphoresis. He took Tums/Antacids as well as ASA x 5 and Nitro. The pain lasted appx 1 hour and 15 minutes then resolved on its own. Patient has never had this pain before. Presently feels well with no additional complaints. Patient denies exertional chest pain. He is fairly active, enjoys hunting. He does report that his activities are limited by SOB. He has a diagnosis of COPD. States that he has baseline SOB and fairly severe CARTER that has been progressive x years. No acute worsening. He denies palpitations, orthopnea, edema, weight gain. Denies cough/wheeze/sputum. Patient follows with Cardiology. He sees Dr. Meraz for managment of his dual chamber pacer. Last seen 05 Aug 2018. He follows with Dr. Saba as well. Patient with history of multivessel CAD s/p multiple stents. 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 Routine cardiology followup has been unremarkable. Echo 08/16/18 with mildly dilated LV with normal EF, 50-55%, mild MR, bioprosthetic AV in place, appropriately functioning Myocardial perfusion study 02 Sep 2016 - no significant ischemic changes. Suggestion of prior RCA territory and apical infarcts and possibly circumflex territory as well. Normal LF size and function. Akinesis of apex, hypokinesis of inferior septum and inferior wall. Patient s/p cholecystectomy found to have a positive IOC now with elevated liver tests. ERCP requested for biliary decompression. Admission Exam Per Admitting Provider General: patient resting comfortably, NAD, non-toxic in appearance, AA&O x 4 Skin: warm, dry, intact, no rashs, scattered bruises on UE and LE HEENT: NC/AT, PERRL, EOMI, anicteric sclera, conjunctiva without injection, external ear normal to inspection and nontender, nares patent, moist mucus membranes, dentition intact, no oropharyngeal lesions, neck supple, trachea midline, no LAD, no thyromegaly, no JVD Heart: +S1/S2, regular, 3/6 ONI at 2nd righ ICS with radiation across precordium Lungs: equal air entry bilaterally, no rales/rhonchi/wheezes Abd: +BS, hyperactive, soft, NT/ND, no masses/organomegaly/ascites Ext: warm, 2+ pulses in UE/LE bilaterally, no clubbing/cyanosis or edema Neuro: nonfocal, patient AA&O x 4, speech intact, no facial droop, moving all extremities on command with equal strength 5/5 Principal Diagnosis cholecystitis requiring cholecystectomy; gastritis; retained CBD stone requiring ERCP Discharge Exam Constitutional WD/WN, vitals as above cooperative and comfortable Eyes + anicteric sclerae and EOM intact bilaterally Neck normal visual inspection and trachea midline Cardiovascular Rate/Rhythm: regular rate and regular rhythm Extremities: no pedal edema Gastrointestinal (Abdomen) Inspection/Auscultation: normal bowel sounds Percussion/Palpation: abdomen soft; no guarding and abdomen not rigid surgical incision sites are well healing without signs of infection Musculoskeletal Head/Neck/Chest: normocephalic and head atraumatic Skin no rashes, warm and dry Neurologic moves all extremities and awake Psychiatric Orientation: alert and cooperative Affect: euthymic affect Discharge Data Allergies Allergy/AdvReac Type Severity Reaction Status Date / Time bee venom protein (honey bee) Allergy Unknown SWELLING Verified 10/21/18 23:50 codeine Allergy Unknown HALLUCINATI Verified 10/21/18 23:50 NG Penicillins Allergy Unknown UNKNOWN Verified 10/21/18 23:50 Sulfa (Sulfonamide Allergy Unknown "SULFA": Verified 10/21/18 23:50 Antibiotics) RASH Consultations 10/22/18 00:15 ED Decision to Admit Stat 10/22/18 02:29 Consult Cardiology Routine 10/22/18 11:33 Consult Thoracic Surgery Routine 10/24/18 07:31 Consult Gastroenterology Routine Procedures Performed Operation Date: 10/23/18 08:30 Actual Procedures p Laparoscopic Cholecystectomy with Cholangiogram - Yadiel Bolton DO Operation Date: 10/24/18 15:15 Actual Procedures p Endoscopic Retrograde Cholangiopancreatogram(Not Applicable) - Lesley Guillen Ordered Studies 10/22/18 02:29 US liver Routine 10/23/18 06:59 FL cholangiogram OR Routine 10/24/18 13:00 FL ERCP biliary ductal Routine Hospital Course (1) Abdominal pain: 73yo gentleman with a complex cardiac PMHx including placement of a pacemaker who presented with epigastric pain and was found to have increased LFTs and an equivocal right upper quadrant US for acute cholecystitis. Cholecystectomy 10/23. Epigastric/Abdominal Pain secondary to cholecystitis -Surgical removal 10/23. Doing well post-op. -Tremont prn for pain. -RUQ US showed some fluid around gallbladder, gallstones with sludge. Read as equivocal. -Viral Hep Panel- neg for Hep B surface antigen and HCV. Acetaminophen level couldn't be obtained. -Pt was afebrile and pain free but in combination with leukocytosis and significantly increased liver enzymes surgery was performed. -On Aztreonam (sulfa and penicillin allergy). DVT Proph: SCDs Code Status: Full code (2) Cholecystitis with cholelithiasis: post op day #2 from cholecystectomy - On 10/24/2018 had ERCP for choledocholithiasis of retainedCBD stones with removal of stones. Diffuse gastritis was seen as well. Indomethacin was given to decrease risk of ERCP pancreatitis. - Plan is discharge home with PPI 20mg daily for 6 weeks, EGD in 3 months for resolution of gastritis, LFT outpatient lab in one week. - Also per GI recs will send home on 10 day course of Cipro 500mg BID and Flagyl 500mg TID. (3) CAD (coronary artery disease): -Trops negativex3. -Cardiology was consulted for presenting epigastric pain. -continue home ASA, lasix, metoprolol (4) Diabetes mellitus: Diabetes -ISS, continue home gabapentin for neuropathic pain (5) Hypertension: -continue home metoprolol (6) COPD (chronic obstructive pulmonary disease): -continue home Albuterol prn, budesonide/fomoterol, tiotropium (7) Dementia: -continue home Aricept, Namenda (8) BPH (benign prostatic hyperplasia): continue home finasteride (9) Depression: -continue home buspirone, duloxetine, paxil Total Time Total Time Spent Total Time Spent (In Minutes): <30 Total Time Includes: Examination of the Patient, Discharge Planning, Medication Reconciliation and Communication With Other Providers Discharge Plan Discharge Items Patient Disposition: Home - Self-Care Reason For Visit: ABDOMINAL PAIN Discharge Diagnosis: cholecystitis with cholelithiasis and choledocholithiasis; gastritis Condition: Good Discharge Goals: Diagnostic testing and Therapeutic intervention Activity: Per 'Additional Instructions' section Lifting: No more than 10 pounds Bathing Comment: may shower no tub baths Non-emergency contact: Surgeon Call non-emergency contact if: you have any medication questions, your pain is concerning for you, your temperature is above 100.5, your wound has increased redness, your wound has increased drainage and your wound pain has increased Follow-up/Referrals: Leandro Rodrigues MD [Primary Care Provider] - Diet: Carb Consistent or DM2 Addtl Provider Instructions: call [phone] with any questions or concerns and to schedule a follow up appointment with Dr. Bolton (surgery) You abdominal pain was found to be from inflammation of the gallbladder (cholecystitis) that was treated with surgical removal of the gallbladder (cholecystectomy). You also had a gallbladder stone in the common bile duct that required removal with an ERCP procedure. * You will need to have lab work drawn in one week to measure your Liver enzymes. During the ERCP procedure, there was inflammation of the lining of your stomach that was visualized (gastritis). This will require a daily medication for 6 weeks. The medication is called Prilosec. You will take one 20mg tablet per day. You will need to have a follow up EGD in 3 months to visualize that the inflammation has resolved with treatment. A prescription was sent to your pharmacy electronically for this medication. This medication is also available without a prescription over the counter. You will need to complete a course of antibiotics to protect you from potential infection following your ERCP procedure. You will take two Antibiotics for a total of 10 days. * Ciprofloxacin 500mg, take one pill, twice per day/every 12 hours. * Metronidazole 500mg, take one pill, three times per day/every 8 hours. * This medication was sent electronically to your pharmacy. [facility] pharmacy in [place]. Please call your Primary Care Doctor for next available appointment for hospital follow-up. Prescriptions: New hydrocodone-acetaminophen [Tremont] 5-325 mg tablet 1 - 2 tab PO Q6H PRN (Reason: pain) Qty: 30 RF: 0 Prilosec OTC 20 mg tablet,delayed release (DR/EC) 20 mg PO DAILY 42 Days Qty: 42 RF: 0 ciprofloxacin HCl 500 mg tablet 500 mg PO BID 10 Days Qty: 20 RF: 0 metronidazole 500 mg tablet 500 mg PO Q8H 10 Days Qty: 30 RF: 0 Continued finasteride 5 mg Tablet 5 mg PO DAILY RF: 0 epinephrine [EpiPen] 0.3 mg/0.3 mL Auto-Injector 0.3 mg IM Q3H PRN (Reason: Allergy Symptoms) RF: 0 metoprolol tartrate 25 mg Tablet 12.5 mg PO BID RF: 0 acetaminophen [Tylenol] 325 mg Tablet 325 mg PO DIRECTED PRN (Reason: Pain) RF: 0 albuterol sulfate [Proventil HFA] 90 mcg/actuation Hfa Aerosol Inhaler 2 puff INHALATION QID PRN (Reason: sob) RF: 0 aspirin 81 mg Tablet,Delayed Release (Dr/Ec) 0.5 mg PO DAILY RF: 0 nitroglycerin [Nitrostat] 0.4 mg Tablet, Sublingual 0.4 mg Sublingual DIRECTED PRN (Reason: Chest Pain) RF: 0 Symbicort 160-4.5 mcg/actuation Hfa Aerosol Inhaler 2 puff INHALATION BID RF: 0 furosemide [Lasix] 20 mg Tablet 20 mg PO DAILY RF: 0 gabapentin 300 mg Capsule 300 mg PO QID RF: 0 duloxetine 60 mg Capsule,Delayed Release(Dr/Ec) 60 mg PO DAILY RF: 0 Spiriva with HandiHaler 18 mcg Capsule, W/Inhalation Device 1 cap INHALATION DAILY RF: 0 glimepiride 4 mg Tablet 4 mg PO BID RF: 0 Onglyza 5 mg Tablet 5 mg PO DAILY RF: 0 lamotrigine 200 mg Tablet 200 mg PO HS RF: 0 Lantus Solostar U-100 Insulin 100 unit/mL (3 mL) Insulin Pen 24 unit SUBCUT QAM RF: 0 Lantus Solostar U-100 Insulin 100 unit/mL (3 mL) Insulin Pen 26 unit SUBCUT QPM RF: 0 hydrocortisone 2.5 % Ointment 1 applic TOPICAL HS PRN (Reason: Itching) RF: 0 atorvastatin [Lipitor] 40 mg Tablet 40 mg PO HS RF: 0 donepezil 10 mg Tablet 10 mg PO DAILY RF: 0 paroxetine HCl 20 mg Tablet 20 mg PO DAILY RF: 0 buspirone 30 mg Tablet 30 mg PO TID RF: 0 memantine 5 mg Tablet 5 mg PO BID RF: 0 sildenafil 25 mg Tablet 20 mg PO DIRECTED RF: 0 Discontinued clindamycin HCl 300 mg Capsule 600 mg PO DIRECTED RF: 0 Stand-Alone Forms: Call Back Authorization, [facility]/Other Patient Handouts: ERCP, Cholecystectomy Laparoscopic Dc Discharge Orders: Discharge Order (Routine); Ordered 10/25/18 Ordered By: Luis Martinez Admission Data Admit Date/Time: 10/22/18 00:58 Attending Provider: Denis Rashid Admit Provider: Martha Rivers Primary Care Provider: Leandro Rodrigues Other Providers: Asuncion Bliss ; Martha Rivers ; Artur Bear ; Surinder Berry ; Donato Echeverria ; Judd Hood ; Luis Alberto Castro Jr ; Raymundo Saba ; Elaine Landin ; Vandana Marrero ; Sammy Lim ; Sammy Choi ; Vance Guillen ; Chencho Tracy ; Saadia Winkler ; Morena Mckinney ; Yadiel Bolton ; Lesley Guillen Service: Telemetry Medical Other Interventions: Discharge Summary Assessment (RN) Last Done: 10/25/18 15:42 Supervising Physician Co-Signing Physician Notes I personally examined the patient and verified all dye points of history and exam, discussed case, and agree with decision making with Dr Martinez. Feeling good, wants to go home. GI input surgery input appreciated. Vitals noted, in general he is in no distress. Breathing is unlabored no accessory muscle use. Skin shows no rashes no pallor or icterus. Cholecystitis/choledocholithiasisstable for home, finish course of antibiotics, repeat CBC and CMP next week. Otherwise as above
== END 2018-10-25 20:18 | disposition home or self-care (01) | DRG 419 ==
LOC: ED 22:36 → 2N 10-22 00:58 → SUATTDRO 10-22 00:58 → 2N 10-22 02:06

== ENCOUNTER 2020-05-05 12:12 | Inpatient (IN) ==
--- NOTE | 2020-05-05 12:40 | Emergency Department Note ---
Impression & Plan Intractable low back pain, Lumbar disc herniation, CKD (chronic kidney disease), Lumbar radiculopathy ED Provider Note NAME: PAXTON CHI JR AGE: 74 SEX: M ARRIVES VIA: Walk-In INFORMANT: Patient, ED PROVIDER(S): Fernandez Gonzales MD CHIEF COMPLAINT: Right back and hip pain PLAN: Disposition: Admit MEDICAL DECISION MAKING: The patient is a pleasant 74-year-old gentleman with a past medical history of carotid artery stenosis, hypertension, hyperlipidemia, CAD, diabetes, CKD who presents emergency department with worsening right hip and right lumbar pain over the past 2 weeks in the setting of his report of a fall where he did not initially have any pain for at least 4 days but then worsening symptoms with plain films that were negative outpatient by his PCP. He denies any loss of bowel control or urinary retention. Denies fevers, chest pain, sob, chills, cough, congestion, n/v, urinary sx. On arrival the patient uncomfortable no acute distress, afebrile stable vital signs. On exam the patient has mild tenderness of the right lower lumbar region extending distally over the superior gluteal region and into his proximal anterior thigh. Range of motion of his right hip is limited secondary to pain. Distal PMS intact. CT of the abdomen pelvis demonstrates severe multilevel degenerative changes of the lumbar spine with canal stenosis and suspected right paracentral disc herniation at the level of L2-L3. Findings do correlate to the patient's symptoms. The patient did receive IM morphine with some improvement however as this wore off he again was reporting significant discomfort. We did discuss that given he is pain is intractable where he is unable to ambulate will admit for pain control. Patient and his at the bedside are agreeable with plan. Blood work was then ordered. WBC 16, nonspecific. H/H 12.2/37.3 similar to prior. Platelets wnl. Chemistry without acidosis. Cr. 1.3 within baseline. Total and direct bilirubin 2.1 and 0.4, respectively. Similar to prior range. LFTs otherwise unremarkable. UA negative for infection. Case was discussed with Dr. Pleitez, [facility] hospitalist, who will evaluate the patient for admission. Of note, we became aware of patient's recent Covid19 infection from March, which he did not mention. Covid19 PCR performed and was negative and so likely has cleared given patient denies infectious symptoms. Triage Nursing notes reviewed and agree them. Prior medical records reviewed Vital Signs: reviewed and remarkable for no significant abnormalities Differential diagnosis: Fracture, subluxation, dislocation, contusion, ligamentous injury, neurovascular, compartment syndrome, rhabdomyolysis, as well as other pathologies. ER treatment provided: See below. Laboratory studies: See below. Imaging studies: CT OF THE ABDOMEN AND PELVIS WITHOUT CONTRAST CLINICAL HISTORY: Right lumbar, hip pain, fall COMPARISON STUDY: CT of the abdomen and pelvis October 06, 2017. Pelvis and right hip radiographs May 02, 2020. TECHNIQUE: Axial images of the abdomen and pelvis were obtained without IV contrast. Images were reviewed in the axial, sagittal, and coronal planes. Automated exposure control was utilized for the study. A dose lowering technique was utilized adhering to the principles of ALARA. FINDINGS: Imaged portions of the lower chest demonstrate subpleural groundglass opacity with cystic change. This is unchanged since prior CT. Pacer leads are partially imaged. No pneumatosis, free air or portal venous gas is present. There is no biliary ductal dilatation status post cholecystectomy. Evaluation of the abdomen and pelvis is suboptimal on this unenhanced examination. The liver, spleen, adrenal glands and right kidney are unremarkable with the exception of several small bilateral renal calculi that measure up to 3 mm. A 1.8 cm left renal lesion was shown to reflect a cyst on prior contrast enhanced CT. There are no ureteral calculi. There is no hydronephrosis. There is a moderate amount of stool within the colon. There is no evidence for a bowel obstruction. The appendix is normal. Chronic diverticulosis is noted without evidence for acute diverticulitis. There is no hemoperitoneum or pneumoperitoneum. There is no free fluid. No acute pelvic or lumbar spine fracture is noted. For purposes of numbering on this exam, the L5-S1 disc space is assigned to axial image 279 of 476. Multilevel degenerative disc disease and facet arthrosis within lumbar spine is noted. There is severe disc space narrowing at L3-L4 and L4-L5. Central canal and neural foramen are suboptimally assessed by CT. There is slight loss of height of the inferior endplate of L2 and superior endplate of L3. These may reflect Schmorl's nodes. These findings were shown on CT of July 28, 2019. Note is made of a probable right paracentral disc herniation posterior to the right aspect of the L3 vertebral body shown on axial image 205 of 476. This is suboptimally assessed on this exam. Although not definitive, this may arise from the L2-L3 disc space. There is moderate to severe central canal stenosis at L3-L4 due to disc bulge, ligamentous hypertrophy and facet ar throsis. There is also suspected moderate central canal stenosis at L2-L3. IMPRESSION: 1. No acute process within the abdomen or pelvis on unenhanced exam. 2. Bilateral nephrolithiasis. No ureteral calculi or hydronephrosis. 3. Moderate amount stool within the colon. No bowel obstruction. Colonic diverticulosis without evidence for acute diverticulitis. 4. Severe multilevel degenerative changes within the lumbar spine. Central canal and neural foramen suboptimally assessed by CT. Moderate to severe central canal stenosis at L3-L4 and moderate central canal stenosis at L2-L3. Possible right paracentral disc herniation posterior to the L3 vertebral body. While not definitive, this likely arises from the L2-L3 disc. If no contraindication, nonemergent MRI of the lumbar spine is recommended. ACT 112: Negative or not required by law. Consultation(s): Case was discussed with Dr. Pleitez, [facility] hospitalist, who will evaluate the patient for admission. HPI: The patient is a pleasant 74-year-old gentleman with a past medical history of carotid artery stenosis, hypertension, hyperlipidemia, CAD, diabetes, CKD who presents emergency department with worsening right hip and right lumbar pain over the past 2 weeks in the setting of his report of a fall where he did not initially have any pain for at least 4 days but then worsening symptoms with plain films that were negative outpatient by his PCP. He denies any loss of bowel control or urinary retention. Denies fevers, chest pain, sob, chills, cough, congestion, n/v, urinary sx. ROS: See above HPI for pertinent positives & negatives. A total of 10 systems reviewed and were otherwise negative. PAST MEDICAL HISTORY:See Below PAST SURGICAL HISTORY:See Below FAMILY HISTORY:See Below SOCIAL HISTORY:See Below HOME MEDICATIONS:See Below ALLERGIES:See Below VITALS:See Below PHYSICAL EXAMINATION: GENERAL: Awake, alert, uncomfortable-appearing, in no distress HENT: Normocephalic, atraumatic. Oropharynx unremarkable. EYES: Normal conjunctiva. Sclera non-icteric. NECK: Supple. No nuchal rigidity. FROM. No JVD. RESPIRATORY: Clear to auscultation. CARDIAC: Regular rate, normal rhythm. Extremities warm and well perfused. Pulses equal. ABDOMEN: Soft, non-distended. No tenderness to palpation. No rebound or guarding. No masses. RECTAL: Deferred. MUSCULOSKELETAL: Chest examination reveals no tenderness. There is no CVA tenderness to palpation. No joint edema. Mild tenderness of the right lower lumb ar region extending distally over the superior gluteal region and into his proximal anterior thigh. Range of motion of his right hip is limited secondary to pain. Distal PMS intact. LOWER EXTREMITIES: Calves are equal size bilaterally and non-tender. No edema. No discoloration. NEURO: Normal sensorium. No sensory or motor deficits noted. 5/5 strength and SILT x 4 extremities. DTRs wnl. No clonus. SKIN: No rash or jaundice noted. Fernandez Gonzales MD Past Med/Surg History Medical History Aneurysm of ascending aorta Asthma with COPD Bicuspid aortic valve BPH (benign prostatic hyperplasia) CAD (coronary artery disease) Carotid artery stenosis CKD (chronic kidney disease) COPD (chronic obstructive pulmonary disease) Dementia HTN (hypertension), benign Hyperlipidemia Lumbar radiculopathy Myelodysplastic syndrome Myocardial infarction Pacemaker Placed after AVR due to complete heart block TIA (transient ischemic attack) Surgical History H/O cardiac catheterization H/O endoscopic retrograde cholangiopancreatography History of colonoscopy History of repair of rotator cuff History of tonsillectomy Hx of cholecystectomy S/P aortic valve replacement S/P coronary artery stent placement S/P right knee surgery Status post cardiac pacemaker procedure for h/o complete heart block s/p his AVR Family History Sister Anxiety Brother Alcohol abuse Father Cardiac disorder Myocardial infarction Mother Depression Kidney disease Lung disease Stroke Other Family history non-contributory Denies family history of Ovarian cancer Prostate cancer Breast cancer Colorectal cancer Social History Smoking Status: Former smoker Tobacco Type: Cigarettes Age Quit Using Tobacco: 64; Cigarettes Per Day: Random cigarette usage; Second Hand Exposure: No; Do You Dip or Chew Tobacco: Yes; Hx Alcohol Use: No Hx Substance Use: No Preferred Language: Israeli Communication Ability: Effective Hearing Ability: Use of Hearing Aid Lead Network Engineer Required: No Beliefs That Will Affect Care: None marital status: Current Living Situation: Spouse Current Living Situation Comment: House Other Information That Helps Us Care for You: No Feels Safe at Home: Yes Safety Concerns: Feels Safe At This Time Childhood Exposure to Second-Hand Smoke: Yes Seatbelt Use: always Sunscreen Use: Yes Assistive Devices: Glasses, Hearing Aid - Bilateral and Walker Allergies Allergies Allergy/AdvReac Type Severity Reaction Status Date / Time bee venom protein (honey bee) Allergy Unknown SWELLING Verified 05/05/20 13:38 codeine Allergy Unknown HALLUCINATI Verified 05/05/20 13:38 NG Penicillins Allergy Unknown UNKNOWN Verified 05/05/20 13:38 Sulfa (Sulfonamide Allergy Unknown "SULFA": Verified 05/05/20 13:38 Antibiotics) RASH Home Meds Home Medications Medication Instructions Recorded Confirmed epinephrine [EpiPen] 0.3 mg IM Q3H PRN 10/21/18 05/05/20 finasteride 5 mg PO DAILY 10/21/18 05/05/20 metoprolol tartrate 12.5 mg PO BID 10/21/18 05/05/20 atorvastatin [Lipitor] 40 mg PO HS 10/22/18 05/05/20 donepezil 10 mg PO DAILY 10/22/18 05/05/20 duloxetine 60 mg PO DAILY 10/22/18 05/05/20 furosemide [Lasix] 20 mg PO DAILY 10/22/18 05/05/20 gabapentin 300 mg PO TID 10/22/18 05/05/20 hydrocortisone 1 applic TOPICAL HS PRN 10/22/18 05/05/20 lamotrigine 200 mg PO HS 10/22/18 05/05/20 memantine 5 mg PO BID 10/22/18 05/05/20 aspirin 81 mg tablet,delayed 40.5 mg PO DAILY tab 04/03/19 05/05/20 release nitroglycerin 0.4 mg sublingual 0.4 mg SUBLINGUAL DIRECTED PRN 04/03/19 05/05/20 tablet insulin glargine 100 unit/mL (3 30 units SUBCUT BID ml 07/25/19 05/05/20 mL) subcutaneous pen acetaminophen [Tylenol Extra 1,000 mg PO TID PRN 03/18/20 05/05/20 Strength] albuterol sulfate [ProAir HFA] 2 puffs INH Q4H PRN 03/18/20 05/05/20 alogliptin 12.5 mg PO QAM 03/18/20 05/05/20 benazepril [Lotensin] 10 mg PO DAILY 03/18/20 05/05/20 buspirone 15 mg PO BID 03/18/20 05/05/20 ciprofloxacin HCl [Cipro] 500 mg PO BID 03/18/20 05/05/20 fluticasone propionate [Flonase 2 spray INTRANASAL DAILY 03/18/20 05/05/20 Allergy Relief] gabapentin 600 mg PO HS 03/18/20 05/05/20 Previous Rx's Medication Instructions Recorded glimepiride 4 mg tablet 4 mg PO BID #180 tab 12/06/19 mupirocin 2 % topical ointment 1 appln TOP BID #15 gm 02/19/20 prednisone 10 mg tablet 10 mg PO DAILY #21 tab 05/02/20 Results & Data (ED) Vital Signs Vital Signs - 24 hr 05/05/20 12:31 05/05/20 14:00 05/05/20 15:34 Temperature 36.5 C Temperature Source Oral Pulse Rate 92 H Pulse Rate [Right Finger] 86 87 Respiratory Rate 18 20 20 Respiratory Effort / Characteristics Non-Labored Spontaneous Respiratory Depth Normal Respiratory Pattern Regular Blood Pressure 142/79 H Blood Pressure [Right Arm] 135/80 124/74 Blood Pressure Mean 100 Blood Pressure Mean [Right Arm] 98 90 Blood Pressure Position Sitting Pulse Oximetry 93 95 98 Oxygen Delivery Method Room Air Room Air Room Air Sepsis Recent Fever Within 48 Hours No Sepsis New/Unexplained Change in Mental Status N/A Sepsis Action Taken by Nursing No Action Required Laboratory Data Attestation: I reviewed the patient's lab results. Result diagrams: 05/05/20 15:30 05/05/20 15:30 Lab Results 05/05/20 05/05/20 05/05/20 Range/Units 15:30 15:30 16:45 WBC 16.87 H (4.8-10.8) K/uL RBC 3.83 L (4.7-6.1) M/uL Hgb 12.2 L (14.0-18.0) g/dL Hct 37.3 L (42-52) % MCV 97.4 (80-100) fL MCH 31.9 (25-34) pg MCHC 32.7 (32-36) g/dL RDW Std Deviation 73.4 H (36.4-46.3) fL RDW Coeff of Linda 20.5 H (11.5-14.5) % Plt Count 325 (130-400) K/uL MPV 10.9 H (7.4-10.4) fL Immature Gran % (Auto) 0.4 % Neut % (Auto) 91.8 % Lymph % (Auto) 5.7 % Bradford % (Auto) 2.0 % Eos % (Auto) 0.0 % Baso % (Auto) 0.1 % Neut # (Auto) 15.48 H (1.4-6.5) K/uL Lymph # (Auto) 0.97 L (1.2-3.4) K/uL Bradford # (Auto) 0.33 (0.11-0.59) K/uL Eos # (Auto) 0.00 (0-0.5) K/uL Baso # (Auto) 0.02 (0-0.2) K/uL Immature Gran # (Auto) 0.07 H (0.00-0.02) K/uL Absolute Nucleated RBC 0.05 H (0-0) K/uL Nucleated RBC % (auto) 0.3 % Hypochromasia Present Anisocytosis Present Sodium 137 (136-145) mmol/L Potassium 4.7 (3.5-5.1) mmol/L Chloride 103 (98-107) mmol/L Carbon Dioxide 28 (21-32) mmol/L Anion Gap 6.0 (3-11) BUN 35 H (7-18) mg/dl Creatinine 1.32 (0.6-1.4) mg/dl Est Cr Clr Drug Dosing Not Reportable Est GFR ( Amer) 61.6 Est GFR (Non-Af Amer) 53.1 BUN/Creatinine Ratio 26.4 H (10-20) Glucose 191 H (70-99) mg/dl Calcium 9.2 (8.5-10.1) mg/dl Phosphorus 3.6 (2.5-4.9) mg/dl Magnesium 2.3 (1.8-2.4) mg/dl Total Bilirubin 2.1 H (0.2-1) mg/dl Direct Bilirubin 0.4 H (0-0.2) mg/dl AST 18 (15-37) U/L ALT 28 (12-78) U/L Alkaline Phosphatase 112 (45-117) U/L Total Protein 9.2 H (6.4-8.2) gm/dl Albumin 4.5 (3.4-5.0) gm/dl Globulin 4.7 H (2.5-4.0) gm/dl Albumin/Globulin Ratio 1.0 (0.9-2) Urine Color Yellow Urine Appearance Clear (Clear) Urine pH 5.0 (4.5-7.5) Ur Specific [place] 1.014 (1.000-1.030) Urine Protein Negative (Negative) Urine Glucose (UA) Negative (Negative) Urine Ketones Negative (Negative) Urine Blood Negative (Negative) Urine Nitrite Negative (Negative) Urine Bilirubin Negative (Negative) Urine Urobilinogen Negative (Negative) Ur Leukocyte Esterase Negative (Negative) Administered Medications Acetaminophen (Acetaminophen 500 Mg Tab) 1,000 mg PO TID PRN PRN Reason: Pain Stop: 06/04/20 19:28 Last Admin: 05/05/20 23:40 Dose: 1,000 mg Documented by: [id number] Atorvastatin Calcium (Atorvastatin 40 Mg Tab) 40 mg PO HS COLLIN Stop: 06/04/20 20:59 Last Admin: 05/05/20 22:11 Dose: 40 mg Documented by: [id number] Buspirone HCl (Buspirone 15 Mg Tab) 15 mg PO BID COLLIN Stop: 06/04/20 20:59 Last Admin: 05/05/20 22:12 Dose: 15 mg Documented by: [id number] Gabapentin (Gabapentin 300 Mg Cap) 600 mg PO HS COLLIN Stop: 06/04/20 20:59 Last Admin: 05/05/20 22:09 Dose: 600 mg Documented by: [id number] Heparin Sodium (Porcine) (Heparin Sod 5,000 Unit/0.5 Ml Vial) 5,000 units SQ Q12 COLLIN Stop: 06/04/20 20:59 Last Admin: 05/05/20 22:04 Dose: 5,000 units Documented by: [id number] Cosigned by: [id number] Insulin Aspart (Insulin Aspart 100 Units/Ml 3 Ml Pen) 0 units SC ACHS COLLIN Stop: 06/04/20 20:59 Last Admin: 05/05/20 22:02 Dose: 1 units Documented by: [id number] Cosigned by: [id number] Insulin Glargine (Insulin Glargine Solostar 100 Units/Ml 3 Ml Pen) 30 units SQ BID COLLIN Stop: 06/04/20 20:59 Last Admin: 05/05/20 22:04 Dose: 30 units Documented by: [id number] Cosigned by: [id number] Lamotrigine (Lamotrigine 100 Mg Tab) 200 mg PO HS COLLIN Stop: 06/04/20 20:59 Last Admin: 05/05/20 22:12 Dose: 200 mg Documented by: [id number] Magnesium Hydroxide (Magnesium Hydroxide Susp 30 Ml Udc) 30 ml PO Q6H PRN PRN Reason: Constipation Stop: 06/04/20 19:28 Last Admin: 05/05/20 23:40 Dose: 30 ml Documented by: [id number] Memantine (Memantine Hcl 5 Mg Tab) 5 mg PO BID COLLIN Stop: 06/04/20 20:59 Last Admin: 05/05/20 22:11 Dose: 5 mg Documented by: [id number] Metoprolol Tartrate (Metoprolol Tartrate 25 Mg Tab) 12.5 mg PO BID COLLIN Stop: 06/04/20 20:59 Last Admin: 05/05/20 22:09 Dose: 12.5 mg Documented by: [id number] Polyethylene Glycol (Polyethylene (Miralax) 17 Gm Pack) 17 gm PO DAILY PRN PRN Reason: Constipation Stop: 06/04/20 19:28 Last Admin: 05/05/20 23:40 Dose: 17 gm Documented by: [id number] Discontinued Medications Sodium Chloride (Nss 1000ml) 1,000 mls @ 999 mls/hr IV .Q1H1M COLLIN Stop: 05/05/20 16:11 Last Infusion: 05/05/20 16:38 Dose: 0 mls/hr Documented by: [id number] Admin: 05/05/20 15:32 Dose: 999 mls/hr Documented by: [id number] Acetaminophen (Ofirmev) 1,000 mg in 100 mls @ 400 mls/hr IV NOW STA Stop: 05/05/20 15:24 Last Infusion: 05/05/20 15:47 Dose: 0 mls/hr Documented by: [id number] Admin: 05/05/20 15:32 Dose: 400 mls/hr Documented by: [id number] Morphine Sulfate (Morphine Sulfate 10 Mg/Ml Carp/Vial) 4 mg IM NOW STA Stop: 05/05/20 12:58 Last Admin: 05/05/20 13:11 Dose: 4 mg Documented by: [id number] Morphine Sulfate (Morphine Sulfate 10 Mg/Ml Carp/Vial) 6 mg IV NOW STA Stop: 05/05/20 15:11 Last Admin: 05/05/20 15:32 Dose: 6 mg Documented by: [id number] Blood Pressure Blood Pressure Findings: Normal blood pressure Blood Pressure Disposition: further management by hospitalist Discharge Plan Visit Data Chief Complaint: Leg Injury/Pain Stated Complaint: RIGHT KNEE AND LEG PAIN ED Provider: Fernandez Gonzales Discharge Problem: Intractable low back pain, Lumbar disc herniation, CKD (chronic kidney dise ase), Lumbar radiculopathy Patient Disposition: Admitted As Inpatient Discharge Instructions Interventions: ED Discharge Assessment Last Done: 05/05/20 19:11
[2020-05-05] MEDS ORDERED: MoRPHine SULFATE 10 MG/ML CARP/VIAL IM STA (12:57)
--- NOTE | 2020-05-05 13:47 | CT Scan Report ---
CT OF THE ABDOMEN AND PELVIS WITHOUT CONTRAST CLINICAL HISTORY: Right lumbar, hip pain, fall COMPARISON STUDY: CT of the abdomen and pelvis October 06, 2017. [facility]vis and [facility]. TECHNIQUE: Axial images of the abdomen and pelvis were obtained without IV contrast. Images were revi ewed in the axial, sagittal, and coronal planes. Automated exposure control was utilized for the adriana dy. A dose lowering technique was utilized adhering to the principles of ALARA. FINDINGS: Imaged portions of the lower chest demonstrate subpleural groundglass opacity with cystic c hange. This is unchanged since prior CT. Pacer leads are partially imaged. No pneumatosis, free air o r portal venous gas is present. There is no biliary ductal dilatation status post cholecystectomy. Ev aluation of the abdomen and pelvis is suboptimal on this unenhanced examination. The liver, spleen, a drenal glands and right kidney are unremarkable with the exception of several small bilateral renal c alculi that measure up to 3 mm. A 1.8 cm left renal lesion was shown to reflect a cyst on prior contr ast enhanced CT. There are no ureteral calculi. There is no hydronephrosis. There is a moderate amoun t of stool within the colon. There is no evidence for a bowel obstruction. The appendix is normal. Ch ronic diverticulosis is noted without evidence for acute diverticulitis. There is no hemoperitoneum o r pneumoperitoneum. There is no free fluid. No acute pelvic or lumbar spine fracture is noted. For purposes of numbering on this exam, the L5-S1 disc space is assigned to axial image 279 of 476. M ultilevel degenerative disc disease and facet arthrosis within lumbar spine is noted. There is severe disc space narrowing at L3-L4 and L4-L5. Central canal and neural foramen are suboptimally assessed by CT. There is slight loss of height of the inferior endplate of L2 and superior endplate of L3. The se may reflect Schmorl's nodes. These findings were shown on CT of July 28, 2019. Note is made of a probable right paracentral disc herniation posterior to the right aspect of the L3 vertebral body shown on axial image 205 of 476. This is suboptimally assessed on this exam. Although not definitive, this may arise from the L2-L3 disc space. There is moderate to severe central canal stenosis at L3-L 4 due to disc bulge, ligamentous hypertrophy and facet arthrosis. There is also suspected moderate ce ntral canal stenosis at L2-L3. IMPRESSION: 1. No acute process within the abdomen or pelvis on unenhanced exam. 2. Bilateral nephrolithiasis. No ureteral calculi or hydronephrosis. 3. Moderate amount stool within the colon. No bowel obstruction. Colonic diverticulosis without evide nce for acute diverticulitis. 4. Severe multilevel degenerative changes within the lumbar spine. Central canal and neural foramen s uboptimally assessed by CT. Moderate to severe central canal stenosis at L3-L4 and moderate central c anal stenosis at L2-L3. Possible right paracentral disc herniation posterior to the L3 vertebral body . While not definitive, this likely arises from the L2-L3 disc. If no contraindication, nonemergent M RI of the lumbar spine is recommended. ACT 112: Negative or not required by law. Electronically signed by: Duncan Fonseca M.D. 05/05/2020 1:46 PM
[2020-05-05] MEDS ORDERED: MoRPHine SULFATE 10 MG/ML CARP/VIAL IV STA (15:10)
[2020-05-05] MEDS ORDERED: ACETAMINOPHEN 1,000 MG/100 ML VIAL IV STA (15:10)
[2020-05-05] MEDS ORDERED: SODIUM CHLORIDE 0.9% 1000ML 1,000 ML IV SCH (15:11)
[2020-05-05 15:40] LABS: Basophils # (auto) 0.02 K/uL (0-0.2); Basophils % (auto) 0.1 %; Hematocrit (blood only) 37.3 % (42-52); Hemoglobin 12.2 g/dL (14.0-18.0); Immature Granulocytes # (auto) 0.07 K/uL (0.00-0.02); Immature Granulocytes % (auto) 0.4 %; Lymphocytes # (auto) 0.97 K/uL (1.2-3.4); Lymphocytes % (auto) 5.7 %; Mean Corpuscular Hemoglobin 31.9 pg (25-34); Mean Corpuscular Hgb Conc 32.7 g/dL (32-36); Mean Corpuscular Volume 97.4 fL (80-100); Mean Platelet Volume 10.9 fL (7.4-10.4); Monocytes # (auto) 0.33 K/uL (0.11-0.59); Neutrophils # (auto) 15.48 K/uL (1.4-6.5); Neutrophils % (auto) 91.8 %; Nucleated RBC # (auto) 0.05 K/uL (0-0); Nucleated RBC % (auto) 0.3 %; Platelet Count 325 K/uL (130-400); RDW Coefficient of Variation 20.5 % (11.5-14.5); RDW Standard Deviation 73.4 fL (36.4-46.3); Red Blood Count 3.83 M/uL (4.7-6.1); White Blood Count 16.87 K/uL (4.8-10.8)
[2020-05-05 15:56] LABS: Alanine Aminotransferase 28 U/L (12-78); Albumin Level 4.5 gm/dl (3.4-5.0); Aspartate Aminotransferase 18 U/L (15-37); BUN Creatinine Ratio 26.4 (10-20); Bilirubin Direct 0.4 mg/dl (0-0.2); Blood Urea Nitrogen 35 mg/dl (7-18); Calcium 9.2 mg/dl (8.5-10.1); Carbon Dioxide 28 mmol/L (21-32); Chloride 103 mmol/L (98-107); Est GFR (African American) 61.6; Est GFR (Non-African American) 53.1; Glucose 191 mg/dl (70-99); Magnesium 2.3 mg/dl (1.8-2.4); Potassium 4.7 mmol/L (3.5-5.1); Sodium 137 mmol/L (136-145)
[2020-05-05 15:59] LABS: Alkaline Phosphatase 112 U/L (45-117); Bilirubin,Total 2.1 mg/dl (0.2-1); Globulin 4.7 gm/dl (2.5-4.0); Phosphorus 3.6 mg/dl (2.5-4.9); Total Protein 9.2 gm/dl (6.4-8.2)
[2020-05-05 16:01] LABS: Anisocytosis Present; Hypochromasia Present
[2020-05-05 17:03] LABS: Appearance Urine Clear (Clear); Bilirubin Urine Negative (Negative); Blood Urine Negative (Negative); Color Urine Yellow; Glucose Urine UA Negative (Negative); Ketones Urine Negative (Negative); Leukocyte Esterase Urine Negative (Negative); Nitrite Urine Negative (Negative); Protein Urine Negative (Negative); Specific Gravity Urine 1.014 (1.000-1.030); Urobilinogen Urine Negative (Negative)
--- NOTE | 2020-05-05 17:12 | History & Physical Report ---
Date of Service May 05, 2020 Assessment & Plan (1) Lumbar radiculopathy: P/w intractable RLE radiculopathy, weakness x 2 weeks s/p fall in the shower. CT abd/pel with right paracentral HNP L3, mod-severe central canal stenosis L2-4 , seems consistent with pain and weakness on exam and by history -bring in on OBS for pain control, further eval with Ortho -cannot get MRI due to pacer -morphine 4mg IV q4h prn pain -APAP prn pain -continue prednisone burst 40mg daily -continue home gabapentin 300 bid and 900 qhs, consider uptitrating for improved pain control -continue CYmbalta 60mg daily -PT/OT consults placed Ortho Spine consult placed Would be a high risk surgical candidate indeed and would need Cardiology opinion prior to any potential surgery (2) Aneurysm of ascending aorta: noted in history, follows with Cardio (3) Carotid artery stenosis: noted, follows with Cardio, carotid US periodically continue ASA, statin (4) Hyperlipidemia: continue statin (5) Asthma with COPD: no acute issues continue albuterol prn (6) CAD in [place] artery: s/p 7 stents continue ASA 1/2 baby ASA daily continue statin, ACEi, BB (7) Diabetes mellitus type 2, controlled: Last A1C 8.0% in 12/2019, uncontrolled Now w/ hyperglycemia secondary to prednisone -continue Lantus 30 units bid and add Novolog SSI qachs, adjust as needed ADA diet (8) History of TIA (transient ischemic attack): continue ASA, statin, BP control, diabetes control (9) Benign essential hypertension: BPs controlled continue lasix, ACEi, metoprolol (10) Myelodysplastic syndrome: stable, follow as outpt (11) PTSD (post-traumatic stress disorder): stable continue home lamictal, duloxetine, buspar (12) S/P aortic valve replacement with bioprosthetic valve: Porcine valve follows with [place] [facility] continue ASA (13) Dementia: MCI stable continue Aricept and Namenda (14) BPH (benign prostatic hyperplasia): no acute issues continue home finasteride (15) 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 Now recovered repeat COVID-19 test here now negative no precautions needed (17) DVT prophylaxis: Heparin SQ, SCDs Dispo-obs to med/surg for pain control, Ortho eval, PT/OT evals DNR/DNI History of Present Illness Chief Complaint: Severe right hip and knee pain Primary Care Provider: Leandro Rodrigues MD This pt is a 74 yo male with and extensive h/o CAD s/p 7 stents, porcine AVR, TAA,DM2, CKD stage 3, HTN, COPD, PPM for 3rd deg heart block, ROLANDA, PTSD, MDS, TIA, BPH, neuropathy, mild cognitive impairment, and recent COVID-19 dxd 03/18/20, who presents with severe, intractable right hip and knee pain. Due to his MCI, he is a bit off on his timeline but chart reviewed and I also spoke with his on the phone for more history. He reports he fell in the shower about 2 weeks ago and landed on his right side and tailbone. He had no pain x 4 days and then developed right groin pain. This went away and then he developed fairly severe right knee pain and then right lateral hip pain. Now he has pain from the hip down the lateral thigh to the knee all the time, worse with any slight movement and worse with standing or sitting. Pain is best if he is lying flat and still. No numbness/tingling/weakness of RLE. No lower back pain. No bowel or bladder incontinence. He was seen by his PCP who ordered plain films which were negative for fracture of the knee and hip on 05/02. He was started on a prednisone burst but continued to have severe pain, prompting him to come to the ER. Here, he had CT abd/pel with attn to the spine and was found to have nothing acute in abd/pel, but found to have mod-severe central canal stenosis at L2-4 and possible right paracentral HNP at L3 level. Unfortunately, he cannot have an MRI due to his pacemaker as it was confirmed in Cardiology notes to be Non-MRI compatible. He will be admitted for intractable pain secondary to lumbar radiculopathy and for further evaluation by Ortho SPine. Allergies Allergy/AdvReac Type Severity Reaction Status Date / Time bee venom protein (honey bee) Allergy Unknown SWELLING Verified 05/05/20 13:38 codeine Allergy Unknown HALLUCINATI Verified 05/05/20 13:38 NG Penicillins Allergy Unknown UNKNOWN Verified 05/05/20 13:38 Sulfa (Sulfonamide Allergy Unknown "SULFA": Verified 05/05/20 13:38 Antibiotics) RASH Home Medications Home Medications Medication Instructions Recorded Confirmed Type epinephrine [EpiPen] 0.3 mg IM Q3H PRN 10/21/18 05/05/20 History finasteride 5 mg PO DAILY 10/21/18 05/05/20 History metoprolol tartrate 12.5 mg PO BID 10/21/18 05/05/20 History atorvastatin [Lipitor] 40 mg PO HS 10/22/18 05/05/20 History donepezil 10 mg PO DAILY 10/22/18 05/05/20 History duloxetine 60 mg PO DAILY 10/22/18 05/05/20 History furosemide [Lasix] 20 mg PO DAILY 10/22/18 05/05/20 History gabapentin 300 mg PO TID 10/22/18 05/05/20 History hydrocortisone 1 applic TOPICAL HS PRN 10/22/18 05/05/20 History lamotrigine 200 mg PO HS 10/22/18 05/05/20 History memantine 5 mg PO BID 10/22/18 05/05/20 History aspirin 81 mg tablet,delayed 40.5 mg PO DAILY tab 04/03/19 05/05/20 History release nitroglycerin 0.4 mg sublingual 0.4 mg SUBLINGUAL DIRECTED PRN 04/03/19 05/05/20 History tablet insulin glargine 100 unit/mL (3 30 units SUBCUT BID ml 07/25/19 05/05/20 History mL) subcutaneous pen glimepiride 4 mg tablet 4 mg PO BID #180 tab 12/06/19 05/05/20 Rx mupirocin 2 % topical ointment 1 appln TOP BID #15 gm 02/19/20 05/05/20 Rx acetaminophen [Tylenol Extra 1,000 mg PO TID PRN 03/18/20 05/05/20 History Strength] albuterol sulfate [ProAir HFA] 2 puffs INH Q4H PRN 03/18/20 05/05/20 History alogliptin 12.5 mg PO QAM 03/18/20 05/05/20 History benazepril [Lotensin] 10 mg PO DAILY 03/18/20 05/05/20 History buspirone 15 mg PO BID 03/18/20 05/05/20 History ciprofloxacin HCl [Cipro] 500 mg PO BID 03/18/20 05/05/20 History fluticasone propionate [Flonase 2 spray INTRANASAL DAILY 03/18/20 05/05/20 History Allergy Relief] gabapentin 600 mg PO HS 03/18/20 05/05/20 History prednisone 10 mg tablet 10 mg PO DAILY #21 tab 05/02/20 05/05/20 Rx Past Med/Surg History Medical History Aneurysm of ascending aorta Asthma with COPD Bicuspid aortic valve BPH (benign prostatic hyperplasia) CAD (coronary artery disease) Carotid artery stenosis CKD (chronic kidney disease) COPD (chronic obstructive pulmonary disease) Dementia HTN (hypertension), benign Hyperlipidemia Lumbar radiculopathy Myelodysplastic syndrome Myocardial infarction Pacemaker Placed after AVR due to complete heart block TIA (transient ischemic attack) Surgical History H/O cardiac catheterization H/O endoscopic retrograde cholangiopancreatography History of colonoscopy History of repair of rotator cuff History of tonsillectomy Hx of cholecystectomy S/P aortic valve replacement S/P coronary artery stent placement S/P right knee surgery Status post cardiac pacemaker procedure for h/o complete heart block s/p his AVR Family History Sister Anxiety Brother Alcohol abuse Father Cardiac disorder Myocardial infarction Mother Depression Kidney disease Lung disease Stroke Other Family history non-contributory Denies family history of Ovarian cancer Prostate cancer Breast cancer Colorectal cancer Social History Smoking Status: Former smoker Tobacco Type: Cigarettes Age Quit Using Tobacco: 64; Cigarettes Per Day: Random cigarette usage; Second Hand Exposure: No; Do You Dip or Chew Tobacco: Yes; Hx Alcohol Use: No Hx Substance Use: No Preferred Language: Serbian Communication Ability: Effective Hearing Ability: Use of Hearing Aid Lead Oracle Developer Required: No Beliefs That Will Affect Care: None marital status: Current Living Situation: Spouse Current Living Situation Comment: House Other Information That Helps Us Care for You: No Feels Safe at Home: Yes Safety Concerns: Feels Safe At This Time Childhood Exposure to Second-Hand Smoke: Yes Seatbelt Use: always Sunscreen Use: Yes Assistive Devices: Glasses, Hearing Aid - Bilateral and Walker Review of Systems Review of Systems: All systems reviewed & are unremarkable except as noted in HPI & below denies CP, has chronic SOB but not worse. No N/V, no abd pain, no diarrhea. Has chronic constipation. Physical Exam Constitutional: WD/WN, vitals as above Eyes: PERRL, conjunctivae normal, anicteric sclerae ENMT: external ear and nose normal, oropharynx normal Neck: trachea midline, no thyromegaly Respiratory: normal respiratory effort Auscultation: + crackles (at bases); no rhonchi and no wheezes Cardiovascular: Rate/Rhythm: regular rate and regular rhythm Heart Sounds: + murmur (2/6 ONI at RUSB) Extremities: no calf tenderness Chest (Breasts): Chest: normal inspection of chest Gastrointestinal (Abdomen): normal bowel sounds, soft, nontender, no hepatosplenomegaly Musculoskeletal: Spine: + straight leg raise positive (on RLE); no lumbar spi nal tenderness Extremities: extremities normal to inspection; no cyanosis and no clubbing Skin: no rashes, warm and dry Neurologic: deep tendon reflexes 2+ bilaterally (2+ patellar and 1+ Achilles bilat), moves all extremities, + focal motor deficit (3/5 strength in RLE hip flexion,4/5 RLE knee ext/flexion) and awake; not confused Psychiatric: A+Ox3, euthymic affect Lymphatic: no lymphedema Results & Data Results & Data ([facility]) Vital Signs (Past 12 Hours) Vital Signs Temp Pulse Pulse Resp BP BP Pulse Ox 05/05/20 15:34 87 20 124/74 98 05/05/20 14:00 86 20 135/80 95 05/05/20 12:31 36.5 C 92 H 18 142/79 H 93 Laboratory Results 05/05/20 05/05/20 05/05/20 Range/Units 22:03 19:43 17:20 WBC (4.8-10.8) K/uL RBC (4.7-6.1) M/uL Hgb (14.0-18.0) g/dL Hct (42-52) % MCV (80-100) fL MCH (25-34) pg MCHC (32-36) g/dL RDW Std Deviation (36.4-46.3) fL RDW Coeff of Linda (11.5-14.5) % Plt Count (130-400) K/uL MPV (7.4-10.4) fL Immature Gran % (Auto) % Neut % (Auto) % Lymph % (Auto) % [place] % (Auto) % Eos % (Auto) % Baso % (Auto) % Neut # (Auto) (1.4-6.5) K/uL Lymph # (Auto) (1.2-3.4) K/uL [place] # (Auto) (0.11-0.59) K/uL Eos # (Auto) (0-0.5) K/uL Baso # (Auto) (0-0.2) K/uL Immature Gran # (Auto) (0.00-0.02) K/uL Absolute Nucleated RBC (0-0) K/uL Nucleated RBC % (auto) % Hypochromasia Anisocytosis Sodium (136-145) mmol/L Potassium (3.5-5.1) mmol/L Chloride (98-107) mmol/L Carbon Dioxide (21-32) mmol/L Anion Gap (3-11) BUN (7-18) mg/dl Creatinine (0.6-1.4) mg/dl Est Cr Clr Drug Dosing Est GFR ( Amer) Est GFR (Non-Af Amer) BUN/Creatinine Ratio (10-20) Glucose (70-99) mg/dl POC Glucose 160 H 201 H (70-99) mg/dl Calcium (8.5-10.1) mg/dl Phosphorus (2.5-4.9) mg/dl Magnesium (1.8-2.4) mg/dl Total Bilirubin (0.2-1) mg/dl Direct Bilirubin (0-0.2) mg/dl AST (15-37) U/L ALT (12-78) U/L Alkaline Phosphatase (45-117) U/L Total Protein (6.4-8.2) gm/dl Albumin (3.4-5.0) gm/dl Globulin (2.5-4.0) gm/dl Albumin/Globulin Ratio (0.9-2) Urine Color Urine Appearance (Clear) Urine pH (4.5-7.5) Ur Specific [place] (1.000-1.030) Urine Protein (Negative) Urine Glucose (UA) (Negative) Urine Ketones (Negative) Urine Blood (Negative) Urine Nitrite (Negative) Urine Bilirubin (Negative) Urine Urobilinogen (Negative) Ur Leukocyte Esterase (Negative) COVID-19 Eval Order COVID-19 PCR NEGATIVE (Negative) 05/05/20 05/05/20 05/05/20 Range/Units 17:20 16:45 15:30 WBC (4.8-10.8) K/uL RBC (4.7-6.1) M/uL Hgb (14.0-18.0) g/dL Hct (42-52) % MCV (80-100) fL MCH (25-34) pg MCHC (32-36) g/dL RDW Std Deviation (36.4-46.3) fL RDW Coeff of Linda (11.5-14.5) % Plt Count (130-400) K/uL MPV (7.4-10.4) fL Immature Gran % (Auto) % Neut % (Auto) % Lymph % (Auto) % [place] % (Auto) % Eos % (Auto) % Baso % (Auto) % Neut # (Auto) (1.4-6.5) K/uL Lymph # (Auto) (1.2-3.4) K/uL [place] # (Auto) (0.11-0.59) K/uL Eos # (Auto) (0-0.5) K/uL Baso # (Auto) (0-0.2) K/uL Immature Gran # (Auto) (0.00-0.02) K/uL Absolute Nucleated RBC (0-0) K/uL Nucleated RBC % (auto) % Hypochromasia Anisocytosis Sodium 137 (136-145) mmol/L Potassium 4.7 (3.5-5.1) mmol/L Chloride 103 (98-107) mmol/L Carbon Dioxide 28 (21-32) mmol/L Anion Gap 6.0 (3-11) BUN 35 H (7-18) mg/dl Creatinine 1.32 (0.6-1.4) mg/dl Est Cr Clr Drug Dosing Not Reportable Est GFR ( Amer) 61.6 Est GFR (Non-Af Amer) 53.1 BUN/Creatinine Ratio 26.4 H (10-20) Glucose 191 H (70-99) mg/dl POC Glucose (70-99) mg/dl Calcium 9.2 (8.5-10.1) mg/dl Phosphorus 3.6 (2.5-4.9) mg/dl Magnesium 2.3 (1.8-2.4) mg/dl Total Bilirubin 2.1 H (0.2-1) mg/dl Direct Bilirubin 0.4 H (0-0.2) mg/dl AST 18 (15-37) U/L ALT 28 (12-78) U/L Alkaline Phosphatase 112 (45-117) U/L Total Protein 9.2 H (6.4-8.2) gm/dl Albumin 4.5 (3.4-5.0) gm/dl Globulin 4.7 H (2.5-4.0) gm/dl Albumin/Globulin Ratio 1.0 (0.9-2) Urine Color Yellow Urine Appearance Clear (Clear) Urine pH 5.0 (4.5-7.5) Ur Specific [place] 1.014 (1.000-1.030) Urine Protein Negative (Negative) Urine Glucose (UA) Negative (Negative) Urine Ketones Negative (Negative) Urine Blood Negative (Negative) Urine Nitrite Negative (Negative) Urine Bilirubin Negative (Negative) Urine Urobilinogen Negative (Negative) Ur Leukocyte Esterase Negative (Negative) COVID-19 Eval Order Covid19 Done at [facility] COVID-19 PCR (Negative) 05/05/20 Range/Units 15:30 WBC 16.87 H (4.8-10.8) K/uL RBC 3.83 L (4.7-6.1) M/uL Hgb 12.2 L (14.0-18.0) g/dL Hct 37.3 L (42-52) % MCV 97.4 (80-100) fL MCH 31.9 (25-34) pg MCHC 32.7 (32-36) g/dL RDW Std Deviation 73.4 H (36.4-46.3) fL RDW Coeff of Linda 20.5 H (11.5-14.5) % Plt Count 325 (130-400) K/uL MPV 10.9 H (7.4-10.4) fL Immature Gran % (Auto) 0.4 % Neut % (Auto) 91.8 % Lymph % (Auto) 5.7 % [place] % (Auto) 2.0 % Eos % (Auto) 0.0 % Baso % (Auto) 0.1 % Neut # (Auto) 15.48 H (1.4-6.5) K/uL Lymph # (Auto) 0.97 L (1.2-3.4) K/uL [place] # (Auto) 0.33 (0.11-0.59) K/uL Eos # (Auto) 0.00 (0-0.5) K/uL Baso # (Auto) 0.02 (0-0.2) K/uL Immature Gran # (Auto) 0.07 H (0.00-0.02) K/uL Absolute Nucleated RBC 0.05 H (0-0) K/uL Nucleated RBC % (auto) 0.3 % Hypochromasia Present Anisocytosis Present Sodium (136-145) mmol/L Potassium (3.5-5.1) mmol/L Chloride (98-107) mmol/L Carbon Dioxide (21-32) mmol/L Anion Gap (3-11) BUN (7-18) mg/dl Creatinine (0.6-1.4) mg/dl Est Cr Clr Drug Dosing Est GFR ( Amer) Est GFR (Non-Af Amer) BUN/Creatinine Ratio (10-20) Glucose (70-99) mg/dl POC Glucose (70-99) mg/dl Calcium (8.5-10.1) mg/dl Phosphorus (2.5-4.9) mg/dl Magnesium (1.8-2.4) mg/dl Total Bilirubin (0.2-1) mg/dl Direct Bilirubin (0-0.2) mg/dl AST (15-37) U/L ALT (12-78) U/L Alkaline Phosphatase (45-117) U/L Total Protein (6.4-8.2) gm/dl Albumin (3.4-5.0) gm/dl Globulin (2.5-4.0) gm/dl Albumin/Globulin Ratio (0.9-2) Urine Color Urine Appearance (Clear) Urine pH (4.5-7.5) Ur Specific [place] (1.000-1.030) Urine Protein (Negative) Urine Glucose (UA) (Negative) Urine Ketones (Negative) Urine Blood (Negative) Urine Nitrite (Negative) Urine Bilirubin (Negative) Urine Urobilinogen (Negative) Ur Leukocyte Esterase (Negative) COVID-19 Eval Order COVID-19 PCR (Negative) Diagnostic Findings CT abd/pel as per HPI Code Status & VTE Plan Code Status DNR/DNI as per pt and confirmed by his on phone VTE Prophylaxis Plan VTE Prophylaxis will be ordered: Yes PG Care Time/CCT Total # of Minutes Spent Total Time Spent with Patient: Total time spent is greater than 50% in coordination of care (as documented) at patient's floor/unit and/or counseling patient: Coding Level of Care Code 31674 OBS Care - Level 3 Diagnoses Lumbar radiculopathy M54.16 Aneurysm of ascending aorta I71.2 Carotid artery stenosis I65.29 Hyperlipidemia E78.5 Asthma with COPD J44.9 CAD in [place] artery I25.10 Diabetes mellitus type 2, controlled E11.9 History of TIA (transient ischemic attack) Z86.73 Benign essential hypertension I10 Myelodysplastic syndrome D46.9 PTSD (post-traumatic stress disorder) F43.10 S/P aortic valve replacement with bioprosthetic valve Z95.3 Dementia F03.90 BPH (benign prostatic hyperplasia) N40.0 Pacemaker Z95.0 COVID-19 U07.1 DVT prophylaxis Z29.9
[2020-05-05] MEDS ORDERED: ONDANSETRON INJ 2 MG/ML 2 ML VIAL IV PRN (19:29)
[2020-05-05] MEDS ORDERED: GLUCOSE 10 TABS/TUBE PO PRN (19:29)
[2020-05-05] MEDS ORDERED: ACETAMINOPHEN 500 MG TAB PO PRN (19:29)
[2020-05-05] MEDS ORDERED: GLUCOSE 40% GEL 15 GM TUBE PO PRN (19:29)
[2020-05-05] MEDS ORDERED: GLUCAGON FOR INJ 1 MG VIAL SQ PRN (19:29)
[2020-05-05] MEDS ORDERED: NITROGLYCERIN SL 0.4 MG/TAB TAB SL PRN (19:29)
[2020-05-05] MEDS ORDERED: DEXTROSE 50% 50 ML SYRINGE IV PRN (19:29)
[2020-05-05] MEDS ORDERED: CARBOHYDRATES FOR HYPOGLYCEMIA PO PRN (19:29)
[2020-05-05] MEDS ORDERED: ALBUTEROL HFA INHALER 8.5 GM INH PRN (19:42)
[2020-05-05] MEDS ORDERED: PATIENT'S HEIGHT AND/OR WEIGHT NEEDED SCH (20:00)
[2020-05-05] MEDS: INSULIN ASPART 100 UNITS/ML 3 ML PEN SC SCH (22:02)
[2020-05-05] MEDS: INSULIN GLARGINE SOLOSTAR 100 UNITS/ML 3 ML PEN SQ SCH (22:04)
[2020-05-05] MEDS: HEPARIN SOD 5,000 UNIT/0.5 ML VIAL SQ SCH (22:04)
[2020-05-05] MEDS: GABAPENTIN 300 MG CAP PO SCH (22:09)
[2020-05-05] MEDS: METOPROLOL TARTRATE 25 MG TAB PO SCH (22:09)
[2020-05-05] MEDS: MEMANTINE HCL 5 MG TAB PO SCH (22:11)
[2020-05-05] MEDS: ATORVASTATIN 40 MG TAB PO SCH (22:11)
[2020-05-05] MEDS: busPIRone 15 MG TAB PO SCH (22:12)
[2020-05-05] MEDS: lamoTRIgine 100 MG TAB PO SCH (22:12)
[2020-05-05] MEDS: MAGNESIUM HYDROXIDE SUSP 30 ML UDC PO PRN (23:40)
[2020-05-05] MEDS: POLYETHYLENE (MIRALAX) 17 GM PACK PO PRN (23:40)
[2020-05-06] MEDS: MoRPHine SULFATE 4 MG/ML 1 ML CARP\\VIAL IV PRN ×2 (04:22→08:26)
[2020-05-06 06:21] LABS: BUN Creatinine Ratio 29.9 (10-20); Calcium 8.6 mg/dl (8.5-10.1); Creatinine Clr Calc Pharmacy 59.2 ml/min; Est GFR (African American) 68.4; Potassium 4.1 mmol/L (3.5-5.1)
[2020-05-06 07:00] LABS: Estimated Average Glucose 171 mg/dl; Hemoglobin A1C 7.6 % (4.5-5.6)
[2020-05-06] MEDS: FUROSEMIDE 20 MG TAB PO SCH (08:15)
[2020-05-06] MEDS: METOPROLOL TARTRATE 25 MG TAB PO SCH ×2 (08:15→20:10)
[2020-05-06] MEDS: DONEPEZIL HCL 10 MG TAB PO SCH (08:15)
[2020-05-06] MEDS: GABAPENTIN 300 MG CAP PO SCH ×4 (08:16→20:13)
[2020-05-06] MEDS: FINASTERIDE 5 MG TAB PO SCH (08:16)
[2020-05-06] MEDS: busPIRone 15 MG TAB PO SCH ×2 (08:17→20:12)
[2020-05-06] MEDS: DULoxetine HCL 60 MG CAP PO SCH (08:17)
[2020-05-06] MEDS: predniSONE 20 MG TAB PO SCH (08:17)
[2020-05-06] MEDS: FLUTICASONE PROPIONATE NA SPR 16 GM BTL NAE SCH (08:17)
[2020-05-06] MEDS: MEMANTINE HCL 5 MG TAB PO SCH ×2 (08:17→20:09)
[2020-05-06] MEDS: ENALAPRIL MALEATE 10 MG TAB PO SCH (08:17)
[2020-05-06] MEDS: HEPARIN SOD 5,000 UNIT/0.5 ML VIAL SQ SCH ×2 (08:18→20:41)
[2020-05-06] MEDS: INSULIN GLARGINE SOLOSTAR 100 UNITS/ML 3 ML PEN SQ SCH (08:19)
[2020-05-06] MEDS: INSULIN ASPART 100 UNITS/ML 3 ML PEN SC SCH ×4 (08:20→20:40)
[2020-05-06] MEDS: ASPIRIN 81 MG CHEW PO SCH (08:25)
[2020-05-06] MEDS ORDERED: PHARMACY GLYCEMIC MGMT CONSULT PRN (08:50)
[2020-05-06] MEDS ORDERED: BENAZEPRIL HCL 10 MG TAB PO SCH (09:00)
--- NOTE | 2020-05-06 09:55 | CT Scan Report ---
LUMBAR SPINE CT WITHOUT CONTRAST CLINICAL HISTORY: Right leg pain. COMPARISON STUDY: Lumbar spine CT July 28, 2019. CT of the abdomen and pelvis May 05, 2020 . TECHNIQUE: Axial images of the lumbar spine were obtained. Sagittal and coronal reconstructions were viewed. Automated exposure control was utilized for the study. A dose lowering technique was utilize d adhering to the principles of ALARA. FINDINGS: For purposes of numbering on this examination, the L5-S1 disc space is assigned to axial im age 302 of 366. Note is made of small bilateral renal calculi. A water attenuation left renal lesion is suboptimally assessed on this unenhanced exam but favors a cyst no acute fracture or suspicious le judy within the lumbar spine is noted. There is moderate osteoarthritis of both sacroiliac joints wit h partial ankylosis. Paravertebral soft tissues are unremarkable by CT. Moderate to severe multilevel disc space narrowing and osteophytosis is noted. There is also moderate multilevel facet arthrosis. Slight concavity of the inferior endplate of L2 and superior plate of L3 is unchanged since prior lum bar spine CT. The central canal and neural foramen are suboptimally assessed given CT technique. T12-L1: The central canal and neural foramen are patent. L1-L2: The central canal and neural foramen are patent. L2-L3: There is disc space narrowing with vacuum disc phenomenon. There is disc bulge with ligamentou s hypertrophy and facet arthrosis. There is moderate to severe narrowing of the central canal with mi ld bilateral neural foraminal stenosis. In addition, there is a possible right paracentral disc herni ation shown on axial image 178 of 366 posterior to the L3 vertebral body. While not definitive, this may arise from the L2-L3 disc with inferior subligamentous migration. There is severe narrowing of th e right lateral recess at this level. L3-L4: There is marked disc space narrowing with disc bulge and ligamentous hypertrophy with facet ar throsis. There is suspected severe narrowing of the central canal and both lateral recesses with mode rate bilateral neural foraminal stenosis. L4-L5: There is severe disc space narrowing. There is facet arthrosis and ligamentous hypertrophy. Th ere is mild to moderate narrowing of the central canal and lateral recesses. Moderate narrowing of jefferson th neural foramen. L5-S1: There is disc bulge. There is facet arthrosis. There is mild narrowing of the central canal, l ateral recesses and neural foramen. IMPRESSION: 1. No acute lumbar spine fracture or subluxation. 2. Severe multilevel degenerative disc disease and moderate multilevel facet arthrosis within lumbar spine. 3. Suboptimal evaluation of the central canal and neural foramen given CT technique. Suspected severe central canal stenosis at L3-L4, moderate to severe central canal stenosis at L2-L3 and mild to mode rate central canal stenosis at L4-L5. 4. Possible right paracentral disc herniation posterior to the L3 vertebral body. While not definitiv e, this may arise from the L2-L3 disc with inferior subligamentous migration and results in severe na rrowing of the right lateral recess at this level. ACT 112: Negative or not required by law. Electronically signed by: Duncan Fonseca M.D. 05/06/2020 9:54 AM
[2020-05-06] MEDS ORDERED: bisacodyL 10 MG SUPP PR PRN (10:20)
[2020-05-06] MEDS: DOCUSATE SODIUM 100 MG CAP PO SCH ×2 (10:49→20:13)
[2020-05-06] MEDS: LIDOCAINE 5% 1 PATCH TD SCH (10:49)
--- NOTE | 2020-05-06 11:58 | Cardiology Consultation ---
Date of Consultation May 06, 2020 Assessment & Plan (1) CAD, multiple vessel: Mr. Wright is a 74-year-old male with a history of Multivessel CAD s/p Multiple PCI's, Bicuspid Aortic Valve s/p Bioprosthetic AVR 2011, Ascending Aortic Aneurysm, Complete Heart Block s/p Medtronic Dual Chamber Pacemaker 2011, COPD, Dyslipidemia, Hypertension, Prior Pulmonary Emboli following AVR surgery 2011, Carotid Artery Disease, COVID 27 March 2020, and Lumbar Degenerative Disc Disease with Radiculopathy who was admitted to [facility] with Intractable Pain. Cardiology was consulted for Preoperative Cardiac Evaluation. Patient was doing quite well until he sustained a fall. In the ensuing days he developed progressive radicular pain in his right hip and thigh. CT scan confirmed a herniated disc and spinal stenosis from L-2 through L-4. Patient been doing well from a cardiac standpoint. Up until his recent injury patient was exercising 1 hour per day at home including treadmill, walking outside, abdominal exercises, and strength training. He does admit to chronic CARTER related to his COPD and this may be worse since his coyle virus infection in March 2020. Patient has not experienced any angina pectoris or anginal equivalent symptoms, overt signs or symptoms of heart failure, nor has he had any symptoms suggestive of dysrhythmia. Based on his functional status without angina pectoris, normal LV systolic function (LVEF 50% to 55% on Echocardiogram 08/2018), and provided his EKG is stable -- patient is an acceptable surgical risk to proceed with surgery provided he take his usual doses of Lopressor 12.5 mg and Aspirin 81 mg the morning of surgery with sips of water. There is no need for further cardiac workup this time unless we were to see a new abnormality on his EKG. (2) Aneurysm of ascending aorta: History of Bicuspid Aortic Valve with Aortic Stenosis s/p Bioprosthetic AVR 2011 -- Ascending aorta stable at 4.[address] of the Chest November 2018. 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 (3) S/P aortic valve replacement with bioprosthetic valve: -- As outlined above. (4) Third degree AV block: -- Diagnosed in 2011 after his AVR. -- Medtronic Dual Chamber Pacemaker. -- He is device dependent. (5) Pacemaker: -- Followed by Dr. Hood. Supervising Physician Co-Signing Physician Notes Mr. Wright was seen on 05/06/2020. Has not had any recent cardiac sx such as CP or SOB. No further cardiac testing necessary prior to possible orthopedic surgery. History of Present Illness Reason for Consultation: -- Preoperative Cardiac Evaluation. -- Multi-vessel CAD s/p Multiple Intracoronary Stents. -- Bicuspid Aortic Valve s/p Bioprosthetic AVR. -- Complete Heart Block s/p Dual Chamber Pacemaker. Requesting Physician: Fred Fritz DO Attending Physician: Tanner Saba MD History of Present Illness Mr. Wright is a 74-year-old male with a history of Multivessel CAD s/p Multiple PCI's, Bicuspid Aortic Valve s/p Bioprosthetic AVR 2011, Ascending Aortic Aneurysm, Complete Heart Block s/p Medtronic Dual Chamber Pacemaker 2011, COPD, Dyslipidemia, Hypertension, Prior Pulmonary Emboli following AVR surgery 2011, Carotid Artery Disease, COVID 27 March 2020, and Lumbar Degenerative Disc Disease with Radiculopathy who was admitted to [facility] with Intractable Pain. Cardiology was consulted for Preoperative Cardiac Evaluation. Patient was doing quite well until he sustained a fall. In the ensuing days he developed progressive radicular pain in his right hip and thigh. CT scan confirmed a herniated disc and spinal stenosis from L-2 through L-4. Patient been doing well from a cardiac standpoint. Up until his recent injury patient was exercising 1 hour per day at home including treadmill, walking outside, abdominal exercises, and strength training. He does admit to chronic CARTER related to his COPD and this may be worse since his coyle virus infection in March 2020. Patient denies any exertional angina, chest pain, heaviness, tightness, pressure, or discomfort. He denies any exertional neck, jaw, back, or arm pain. He denies any unusual CARTER, orthopnea, or PND. He denies any palpitations, syncope, or near syncope. He has had the following Cardiovascular Studies/Procedures: 1. Cardiac Catheterization 1998 following [place]. 2. Multiple PCI involving mid LAD, mid circumflex, OM1, RCA. These were done at different times at different facilities from [id number]. 3. Bioprosthetic AVR 12/14/2011: -- Minimally invasive aortic valve replacement with 23 mm Joni-Riley pericardial valve. -- Complicated by acute postop blood loss anemia from post pump coagulopathy, and therefore chest was not closed until 12/15/2011. -- Complete heart block ensued following surgery. 4. Pacemaker placement 12/18/2011 [place] [facility] [place] Dual-chamber Medtronic. 5. Cardiac Catheterization 11/13/2011: Mid LAD stent 20% in stent restenoses. Proximal OM1 stent with less than 10% in stent restenoses. Mid OM1 40%. Distal OM1 superior branch ostial 70%. Dominant RCA. Proximal RCA stent 20%. Mid RCA 20%. Distal RCA 20%. PCWP 7. PA pressure 25/8. Cardiac index via thermodilution 2.4 liters/min/m2. 6. Echocardiogram 08/20/2016: Normal LV size and systolic function. EF 60%-65%. Hypokinesis of the mid inferior wall. Dyskinesis distal inferior wall. Mild LVH. Mild left atrial dilation. Mild MR. Appropriately functioning bioprosthetic aortic valve. 7. CT chest 09/02/2016: Ascending thoracic aortic aneurysm 4.3 cm. No dissection. Bilateral lower lobe bronchial wall thickening mucous plugging. Multiple right lower lobe pulmonary nodules and 22 mm pleural based opacity 8. Nuclear Stress 09/02/2016: No significant ischemic changes. Prior RCA territory and apical infarcts with possibility of circumflex territory as well. Inferior, inferoseptal, inferolateral, and apical fixed defect. EF 56%. Akinesis of the apex. Hypokinesis of the inferior septum and inferior wall. No chest pain. 9. Carotid Duplex 10/30/2016: Moderate atherosclerotic plaque bilaterally. 10. CTA Aorta 10/04/2017: Stable ascending thoracic aortic aneurysm, distal to sinotubular junction measuring 4.3 x 4.3 cm. No dissection. Mild emphysema. Granulomatous disease. 11. Echocardiogram 08/16/2018: Mildly dilated LV with low-normal systolic function. EF 50%-55%. Septal motion consistent with pacemaker. Mid to distal inferior wall appears hypokinetic to akinetic. Moderate LVH. Mild MR. Appropriately functioning bioprosthetic aortic valve. Normal RVSP. 12. CT Chest 11/29/2018: Noncontrast. Ascending aorta 4.5 cm at the level of main pulmonary artery. Mild emphysema. Allergies Allergy/AdvReac Type Severity Reaction Status Date / Time bee venom protein (honey bee) Allergy Unknown SWELLING Verified 05/05/20 13:38 codeine Allergy Unknown HALLUCINATI Verified 05/05/20 13:38 NG Penicillins Allergy Unknown UNKNOWN Verified 05/05/20 13:38 Sulfa (Sulfonamide Allergy Unknown "SULFA": Verified 05/05/20 13:38 Antibiotics) RASH Home Medications Home Medications Medication Instructions Recorded Confirmed Type epinephrine [EpiPen] 0.3 mg IM Q3H PRN 10/21/18 05/05/20 History finasteride 5 mg PO DAILY 10/21/18 05/05/20 History metoprolol tartrate 12.5 mg PO BID 10/21/18 05/05/20 History atorvastatin [Lipitor] 40 mg PO HS 10/22/18 05/05/20 History donepezil 10 mg PO DAILY 10/22/18 05/05/20 History duloxetine 60 mg PO DAILY 10/22/18 05/05/20 History furosemide [Lasix] 20 mg PO DAILY 10/22/18 05/05/20 History gabapentin 300 mg PO TID 10/22/18 05/05/20 History hydrocortisone 1 applic TOPICAL HS PRN 10/22/18 05/05/20 History lamotrigine 200 mg PO HS 10/22/18 05/05/20 History memantine 5 mg PO BID 10/22/18 05/05/20 History aspirin 81 mg tablet,delayed 40.5 mg PO DAILY tab 04/03/19 05/05/20 History release nitroglycerin 0.4 mg sublingual 0.4 mg SUBLINGUAL DIRECTED PRN 04/03/19 05/05/20 History tablet insulin glargine 100 unit/mL (3 30 units SUBCUT BID ml 07/25/19 05/05/20 History mL) subcutaneous pen glimepiride 4 mg tablet 4 mg PO BID #180 tab 12/06/19 05/05/20 Rx mupirocin 2 % topical ointment 1 appln TOP BID #15 gm 02/19/20 05/05/20 Rx acetaminophen [Tylenol Extra 1,000 mg PO TID PRN 03/18/20 05/05/20 History Strength] albuterol sulfate [ProAir HFA] 2 puffs INH Q4H PRN 03/18/20 05/05/20 History alogliptin 12.5 mg PO QAM 03/18/20 05/05/20 History benazepril [Lotensin] 10 mg PO DAILY 03/18/20 05/05/20 History buspirone 15 mg PO BID 03/18/20 05/05/20 History ciprofloxacin HCl [Cipro] 500 mg PO BID 03/18/20 05/05/20 History fluticasone propionate [Flonase 2 spray INTRANASAL DAILY 03/18/20 05/05/20 History Allergy Relief] gabapentin 600 mg PO HS 03/18/20 05/05/20 History prednisone 10 mg tablet 10 mg PO DAILY #21 tab 05/02/20 05/05/20 Rx Patient History Medical History Aneurysm of ascending aorta Asthma with COPD Bicuspid aortic valve BPH (benign prostatic hyperplasia) CAD (coronary artery disease) Carotid artery stenosis CKD (chronic kidney disease) COPD (chronic obstructive pulmonary disease) Dementia HTN (hypertension), benign Hyperlipidemia Lumbar radiculopathy Myelodysplastic syndrome Myocardial infarction Pacemaker Placed after AVR due to complete heart block TIA (transient ischemic attack) Surgical History H/O cardiac catheterization H/O endoscopic retrograde cholangiopancreatography History of colonoscopy History of repair of rotator cuff History of tonsillectomy Hx of cholecystectomy S/P aortic valve replacement S/P coronary artery stent placement S/P right knee surgery Status post cardiac pacemaker procedure for h/o complete heart block s/p his AVR Family History Sister Anxiety Brother Alcohol abuse Father Cardiac disorder Myocardial infarction Mother Depression Kidney disease Lung disease Stroke Other Family history non-contributory Denies family history of Ovarian cancer Prostate cancer Breast cancer Colorectal cancer Social History Smoking Status: Former smoker Tobacco Type: Cigarettes Age Quit Using Tobacco: 64; Cigarettes Per Day: Random cigarette usage; Second Hand Exposure: No; Do You Dip or Chew Tobacco: Yes; Hx Alcohol Use: No Hx Substance Use: No Preferred Language: [place]an Communication Ability: Effective Hearing Ability: 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 HEENT: Head is atraumatic, normocephalic. EOM's intact. Facies symmetric. No perioral cyanosis. NECK: No JVD. JVP is at the level of the clavicle sitting upright. Carotid upstrokes are + 2 bilaterally. No obvious bruits are noted. CHEST/LUNGS: Slightly diminished breath sounds throughout, otherwise clear. No wheezes, rales, or crackles. CVS: S1 and S2 are regular with a grade 2/6 systolic murmur heard best over the right 2nd intercostal space. No diastolic murmurs. No gallops or rubs. PMI is nondisplaced. No lifts, heaves, or thrills. No abdominal aortic or renal bruits. There is a palpable pacemaker in left subclavian fossa ABDOMINAL EXAM: Bowel sounds are present. No masses, organomegaly, or tenderness. EXTREMITIES: No clubbing or cyanosis. No edema. Intact posterior tibial and radial pulses bilaterally. NEUROLOGIC EXAM: Patient is awake, alert, and oriented. Pleasant and cooperative. Answers questions appropriately. Speech is clear. EKG ordered. Results & Data ([facility]) Vital Signs (Past 12 Hours) Vital Signs Temp Pulse Resp BP Pulse Ox 05/06/20 07:26 36.5 C 76 16 132/71 97 Laboratory Results Laboratory Results - last 24 hr 05/05/20 05/05/20 05/05/20 15:30 15:30 16:45 WBC 16.87 H RBC 3.83 L Hgb 12.2 L Hct 37.3 L MCV 97.4 MCH 31.9 MCHC 32.7 RDW Std Deviation 73.4 H RDW Coeff of Linda 20.5 H Plt Count 325 MPV 10.9 H Immature Gran % (Auto) 0.4 Neut % (Auto) 91.8 Lymph % (Auto) 5.7 [place] % (Auto) 2.0 Eos % (Auto) 0.0 Baso % (Auto) 0.1 Neut # (Auto) 15.48 H Lymph # (Auto) 0.97 L [place] # (Auto) 0.33 Eos # (Auto) 0.00 Baso # (Auto) 0.02 Immature Gran # (Auto) 0.07 H Absolute Nucleated RBC 0.05 H Nucleated RBC % (auto) 0.3 Hypochromasia Present Anisocytosis Present Sodium 137 Potassium 4.7 Chloride 103 Carbon Dioxide 28 Anion Gap 6.0 BUN 35 H Creatinine 1.32 Est Cr Clr Drug Dosing Not Reportable Est GFR ( Amer) 61.6 Est GFR (Non-Af Amer) 53.1 BUN/Creatinine Ratio 26.4 H Glucose 191 H POC Glucose Estimat Average Glucose Hemoglobin A1c Calcium 9.2 Phosphorus 3.6 Magnesium 2.3 Total Bilirubin 2.1 H Direct Bilirubin 0.4 H AST 18 ALT 28 Alkaline Phosphatase 112 Total Protein 9.2 H Albumin 4.5 Globulin 4.7 H Albumin/Globulin Ratio 1.0 Urine Color Yellow Urine Appearance Clear Urine pH 5.0 Ur Specific Sebastian 1.014 Urine Protein Negative Urine Glucose (UA) Negative Urine Ketones Negative Urine Blood Negative Urine Nitrite Negative Urine Bilirubin Negative Urine Urobilinogen Negative Ur Leukocyte Esterase Negative COVID-19 Eval Order COVID-19 PCR 05/05/20 05/05/20 05/05/20 17:20 17:20 19:43 WBC RBC Hgb Hct MCV MCH MCHC RDW Std Deviation RDW Coeff of Linda Plt Count MPV Immature Gran % (Auto) Neut % (Auto) Lymph % (Auto) [place] % (Auto) Eos % (Auto) Baso % (Auto) Neut # (Auto) Lymph # (Auto) [place] # (Auto) Eos # (Auto) Baso # (Auto) Immature Gran # (Auto) Absolute Nucleated RBC Nucleated RBC % (auto) Hypochromasia Anisocytosis Sodium Potassium Chloride Carbon Dioxide Anion Gap BUN Creatinine Est Cr Clr Drug Dosing Est GFR ( Amer) Est GFR (Non-Af Amer) BUN/Creatinine Ratio Glucose POC Glucose 201 H Estimat Average Glucose Hemoglobin A1c Calcium Phosphorus Magnesium Total Bilirubin Direct Bilirubin AST ALT Alkaline Phosphatase Total Protein Albumin Globulin Albumin/Globulin Ratio Urine Color Urine Appearance Urine pH Ur Specific [place] Urine Protein Urine Glucose (UA) Urine Ketones Urine Blood Urine Nitrite Urine Bilirubin Urine Urobilinogen Ur Leukocyte Esterase COVID-19 Eval Order Covid19 Done at [facility] COVID-19 PCR NEGATIVE 05/05/20 05/06/20 05/06/20 22:03 05:30 05:30 WBC RBC Hgb Hct MCV MCH MCHC RDW Std Deviation RDW Coeff of Linda Plt Count MPV Immature Gran % (Auto) Neut % (Auto) Lymph % (Auto) [place] % (Auto) Eos % (Auto) Baso % (Auto) Neut # (Auto) Lymph # (Auto) [place] # (Auto) Eos # (Auto) Baso # (Auto) Immature Gran # (Auto) Absolute Nucleated RBC Nucleated RBC % (auto) Hypochromasia Anisocytosis Sodium 142 Potassium 4.1 Chloride 106 Carbon Dioxide 29 Anion Gap 7.0 BUN 36 H Creatinine 1.21 Est Cr Clr Drug Dosing 59.2 Est GFR ( Amer) 68.4 Est GFR (Non-Af Amer) 59.0 BUN/Creatinine Ratio 29.9 H Glucose 45 L* POC Glucose 160 H Estimat Average Glucose 171 Hemoglobin A1c 7.6 H Calcium 8.6 Phosphorus Magnesium Total Bilirubin Direct Bilirubin AST ALT Alkaline Phosphatase Total Protein Albumin Globulin Albumin/Globulin Ratio Urine Color Urine Appearance Urine pH Ur Specific [place] Urine Protein Urine Glucose (UA) Urine Ketones Urine Blood Urine Nitrite Urine Bilirubin Urine Urobilinogen Ur Leukocyte Esterase COVID-19 Eval Order COVID-19 PCR 05/06/20 05/06/20 05/06/20 06:24 06:41 08:09 WBC RBC Hgb Hct MCV MCH MCHC RDW Std Deviation RDW Coeff of Linda Plt Count MPV Immature Gran % (Auto) Neut % (Auto) Lymph % (Auto) [place] % (Auto) Eos % (Auto) Baso % (Auto) Neut # (Auto) Lymph # (Auto) [place] # (Auto) Eos # (Auto) Baso # (Auto) Immature Gran # (Auto) Absolute Nucleated RBC Nucleated RBC % (auto) Hypochromasia Anisocytosis Sodium Potassium Chloride Carbon Dioxide Anion Gap BUN Creatinine Est Cr Clr Drug Dosing Est GFR ( Amer) Est GFR (Non-Af Amer) BUN/Creatinine Ratio Glucose POC Glucose 55 L* 88 69 L* Estimat Average Glucose Hemoglobin A1c Calcium Phosphorus Magnesium Total Bilirubin Direct Bilirubin AST ALT Alkaline Phosphatase Total Protein Albumin Globulin Albumin/Globulin Ratio Urine Color Urine Appearance Urine pH Ur Specific [place] Urine Protein Urine Glucose (UA) Urine Ketones Urine Blood Urine Nitrite Urine Bilirubin Urine Urobilinogen Ur Leukocyte Esterase COVID-19 Eval Order COVID-19 PCR 05/06/20 05/06/20 08:10 12:19 WBC RBC Hgb Hct MCV MCH MCHC RDW Std Deviation RDW Coeff of Linda Plt Count MPV Immature Gran % (Auto) Neut % (Auto) Lymph % (Auto) [place] % (Auto) Eos % (Auto) Baso % (Auto) Neut # (Auto) Lymph # (Auto) [place] # (Auto) Eos # (Auto) Baso # (Auto) Immature Gran # (Auto) Absolute Nucleated RBC Nucleated RBC % (auto) Hypochromasia Anisocytosis Sodium Potassium Chloride Carbon Dioxide Anion Gap BUN Creatinine Est Cr Clr Drug Dosing Est GFR ( Amer) Est GFR (Non-Af Amer) BUN/Creatinine Ratio Glucose POC Glucose 77 140 H Estimat Average Glucose Hemoglobin A1c Calcium Phosphorus Magnesium Total Bilirubin Direct Bilirubin AST ALT Alkaline Phosphatase Total Protein Albumin Globulin Albumin/Globulin Ratio Urine Color Urine Appearance Urine pH Ur Specific [place] Urine Protein Urine Glucose (UA) Urine Ketones Urine Blood Urine Nitrite Urine Bilirubin Urine Urobilinogen Ur Leukocyte Esterase COVID-19 Eval Order COVID-19 PCR Medications Administered Active Medications Generic Name Dose Route Start Last Admin Trade Name Freq PRN Reason Stop Dose Admin Acetaminophen 1,000 mg 05/06/20 14:00 05/06/20 12:21 Acetaminophen 500 Mg Tab PO 06/05/20 13:59 1,000 mg TID COLLIN Administration Albuterol 2 puffs 05/05/20 19:42 Albuterol Hfa Inhaler 8.5 Gm INH 06/04/20 19:41 Q4R PRN shortness of breath or wheezing Protocol Aspirin 40.5 mg 05/06/20 09:00 05/06/20 08:25 Aspirin 81 Mg Chew PO 06/05/20 08:59 40.5 mg DAILY COLLIN Administration Atorvastatin Calcium 40 mg 05/05/20 21:00 05/05/20 22:11 Atorvastatin 40 Mg Tab PO 06/04/20 20:59 40 mg HS COLLIN Administration Bisacodyl 10 mg 05/06/20 10:20 Bisacodyl 10 Mg Supp ID 06/05/20 10:19 DAILY PRN Constipation Buspirone HCl 15 mg 05/05/20 21:00 05/06/20 08:17 Buspirone 15 Mg Tab PO 06/04/20 20:59 15 mg BID COLLIN Administration Dextrose 25 - 50 ml 05/05/20 19:29 Dextrose 50% 50 Ml Syringe IV 06/04/20 19:28 UD PRN Hypoglycemia Protocol Protocol Docusate Sodium 100 mg 05/06/20 10:30 05/06/20 10:49 Docusate Sodium 100 Mg Cap PO 06/05/20 10:29 100 mg BID COLLIN Administration Donepezil HCl 10 mg 05/06/20 09:00 05/06/20 08:15 Donepezil Hcl 10 Mg Tab PO 06/05/20 08:59 10 mg DAILY COLLIN Administration Duloxetine HCl 60 mg 05/06/20 09:00 05/06/20 08:17 Duloxetine Hcl 60 Mg Cap PO 06/05/20 08:59 60 mg DAILY COLLIN Administration Enalapril Maleate 10 mg 05/06/20 09:00 05/06/20 08:17 Enalapril Maleate 10 Mg Tab PO 06/05/20 08:59 10 mg DAILY COLLIN Administration Protocol Finasteride 5 mg 05/06/20 09:00 05/06/20 08:16 Finasteride 5 Mg Tab PO 06/05/20 08:59 5 mg DAILY COLLIN Administration Fluticasone Propionate 2 sprays 05/06/20 09:00 05/06/20 08:17 Fluticasone Propionate Na Spr 16 Gm Btl SHAY 06/05/20 08:59 2 sprays DAILY COLLIN Administration Furosemide 20 mg 05/06/20 09:00 05/06/20 08:15 Furosemide 20 Mg Tab PO 06/05/20 08:59 20 mg DAILY COLLIN Administration Gabapentin 600 mg 05/05/20 21:00 05/05/20 22:09 Gabapentin 300 Mg Cap PO 06/04/20 20:59 600 mg HS COLLIN Administration Gabapentin 300 mg 05/06/20 08:00 05/06/20 12:21 Gabapentin 300 Mg Cap PO 06/05/20 07:59 300 mg TIDM COLLIN Administration Glucagon 1 mg 05/05/20 19:29 Glucagon For Inj 1 Mg Vial SQ 06/04/20 19:28 UD PRN Hypoglycemia Protocol Protocol Glucose 4 - 8 tabs 05/05/20 19:29 Glucose 10 Tabs/Tube PO 06/04/20 19:28 UD PRN Hypoglycemia Protocol Protocol Glucose 15 - 30 gm 05/05/20 19:29 Glucose 40% Gel 15 Gm Tube PO 06/04/20 19:28 UD PRN Hypoglycemia Protocol Protocol Heparin Sodium (Porcine) 5,000 units 05/05/20 21:00 05/06/20 08:18 Heparin Sod 5,000 Unit/0.5 Ml Vial SQ 06/04/20 20:59 5,000 units Q12 COLLIN Administration Insulin Aspart 0 units 05/05/20 21:00 05/06/20 12:22 Insulin Aspart 100 Units/Ml 3 Ml Pen SC 06/04/20 20:59 3 units ACHS COLLIN Administration Protocol Lamotrigine 200 mg 05/05/20 21:00 05/05/20 22:12 Lamotrigine 100 Mg Tab PO 06/04/20 20:59 200 mg HS COLLIN Administration Lidocaine 1 patch 05/06/20 10:30 05/06/20 10:49 Lidocaine 5% 1 Patch TD 06/05/20 10:29 1 patch QAM COLLIN Administration Magnesium Hydroxide 30 ml 05/05/20 19:29 05/06/20 12:22 Magnesium Hydroxide Susp 30 Ml Udc PO 06/04/20 19:28 30 ml Q6H PRN Administration Constipation Memantine 5 mg 05/05/20 21:00 05/06/20 08:17 Memantine Hcl 5 Mg Tab PO 06/04/20 20:59 5 mg BID COLLIN Administration Metoprolol Tartrate 12.5 mg 05/05/20 21:00 05/06/20 08:15 Metoprolol Tartrate 25 Mg Tab PO 06/04/20 20:59 12.5 mg BID COLLIN Administration Miscellaneous 15 - 30 gm 05/05/20 19:29 05/06/20 06:25 Carbohydrates For Hypoglycemia PO 06/04/20 19:28 15 gm UD PRN Administration Hypoglycemia Protocol Miscellaneous 1 ea 05/06/20 21:00 Remove Lidoderm Patch N/A 06/05/20 20:59 DAILY@2100 [facility] Miscellaneous Information 1 ea 05/06/20 08:50 Pharmacy Glycemic Mgmt Consult N/A 06/05/20 08:49 UD PRN Consult Morphine Sulfate 4 mg 05/05/20 19:29 05/06/20 08:26 Morphine Sulfate 4 Mg/Ml 1 Ml Carp\\Vial IV 05/19/20 19:28 4 mg Q4 PRN Administration Pain Nitroglycerin 0.4 mg 05/05/20 19:29 Nitroglycerin Sl 0.4 Mg/Tab Tab SL 06/04/20 19:28 PRN PRN Chest Pain Ondansetron HCl 4 mg 05/05/20 19:29 Ondansetron Inj 2 Mg/Ml 2 Ml Vial IV 06/04/20 19:28 Q6H PRN Nausea Polyethylene Glycol 17 gm 05/05/20 19:29 05/05/20 23:40 Polyethylene (Miralax) 17 Gm Pack PO 06/04/20 19:28 17 gm DAILY PRN Administration Constipation Prednisone 40 mg 05/06/20 09:00 05/06/20 08:17 Prednisone 20 Mg Tab PO 06/05/20 08:59 40 mg QAM COLLIN Administration Tramadol HCl 50 mg 05/06/20 10:17 Tramadol Hcl 50 Mg Tablet PO 06/05/20 10:16 Q4H PRN Pain PG Care Time/CCT Total # of Minutes Spent Total Time Spent with Patient: Total time spent is greater than 50% in coordination of care (as documented) at patient's floor/unit and/or counseling patient:40 Coding Level of Care Code 22045 Initial Inpt Care Lvl 3 Diagnoses CAD, multiple vessel I25.10 Aneurysm of ascending aorta I71.2 S/P aortic valve replacement with bioprosthetic valve Z95.3 Third degree AV block I44.2 Pacemaker Z95.0
[2020-05-06] MEDS: ACETAMINOPHEN 500 MG TAB PO SCH ×2 (12:21→20:14)
[2020-05-06] MEDS: MAGNESIUM HYDROXIDE SUSP 30 ML UDC PO PRN (12:22)
--- NOTE | 2020-05-06 14:49 | Pharmacy Report ---
Glycemic Control Consultation - Date of Service May 06, 2020 - Scope Scope: Glycemic Pharmacist consulted for glycemic control and to write orders per [facility] inpatient glycemic control protocol. - Objective Weight: 90 kg Accjpecks BSG (last 24hrs): 05/05/20 05/05/20 05/05/20 15:30 19:43 22:03 Glucose 191 H POC Glucose 201 H 160 H 05/06/20 05/06/20 05/06/20 05:30 06:24 06:41 Glucose 45 L* POC Glucose 55 L* 88 05/06/20 05/06/20 05/06/20 08:09 08:10 12:19 Glucose POC Glucose 69 L* 77 140 H Laboratory Data (last 24hrs): 05/05/20 05/06/20 15:30 05:30 Potassium 4.7 4.1 Carbon Dioxide 28 29 Anion Gap 6.0 7.0 Creatinine 1.32 1.21 Est Cr Clr Drug Dosing Not Reportable 59.2 HbA1c: Hemoglobin A1c 7.6 % (4.5-5.6) H 05/06/20 05:30 - Recent Pertinent Medications Outpatient Anti-diabetic Regimen: * Lantus 30 units SQ BID + Glimepiride 4 mg PO BIDM + Alogliptin 12.5 mg PO qAM * A1c = 7.6% (05/06/2020) Risk Factors for Insulin Resistance: * Steroids: * Prednisone 40 mg PO qAM * Diet: * T2DM - Assessment & Plan Assessment & Plan: ASSESSMENT: * 74 yo M admitted secondary to intractable pain. Pharmacy is consulted for inpatient glycemic management. HbA1c from today demonstrates okay control of T2DM as an outpatient based on age and comorbidities. * Patient took 30 units of Lantus on the morning of 05/05 and then was admitted to the hospital. His admission BSG was 191 mg/dL. At bedtime last night, he received another 30 units of Lantus (full home dose) for a BSG of 160 mg/dL. He was hypoglycemic this AM at 45 mg/dL but was asymptomatic. This was treated with 15 gm of CHO which raised BSG to 88 mg/dL. * Patient already received 30 units of Lantus this AM by the time pharmacy was consulted. I will decrease his Lantus dose this evening to reflect a ~30% decrease in home dose. * Given hypoglycemia this AM, I loosened his CF/CR. This may need tightened again going forward. Lunchtime BSG was well controlled at 140 mg/dL. I did also adjust his goal range to 120-160 mg/dL for now. PLAN FOR INPATIENT GLYCEMIC CONTROL: * Holding outpatient oral diabetes medications * Basal insulin - decreased ~30% * Lantus 30 units SQ x 1 this AM (prior to pharmacy consult) * Lantus 10 units SQ HS x 1 * Bolus insulin - loosened CF/CR and goal range * NovoLog per scale ACHS or Q6hrs while NPO * Goal Range: Low 120 mg/dL - High 160 mg/dL * Correction Factor: 30 mg/dL/unit * Nutritional / Prandial insulin per carb ratio of 1 unit per 10 grams CHO consumed * Please note that the plan above was derived based on current level of insulin resistance and hospital stress. These recommendations are appropriate for inpatient admission only. Plan of care upon discharge will need to be reassessed to avoid potential outpatient hypo/hyperglycemia. Thank you.
--- NOTE | 2020-05-06 15:02 | Orthopedic Progress Note ---
Date of Service May 06, 2020 Assessment & Plan (1) Lumbar radiculopathy: Admission and Anticipated Discharge Date Admission Date: May 05, 2020 I discussion today with this patient and his reviewing his CAT scans findings and clinical presentation. He could continue considered observation epidural injections or ultimately surgical intervention. Surgery would require a lumbar decompression at L2-3 L3-4 with removal of herniated disc fragments. I think we can avoid a fusion. He obviously has significant medical history to contend with. We await input from both medicine and cardiology regarding his candidacy for surgery. Subjective Patient complains of significant right leg pain and inability to ambulate secondary to pain. He states this began over a week ago. He denies any specifi c trauma fall or event. Left lower extremity appears to be asymptomatic. He is denying loss of bowel bladder function at this time. Physical Exam 2 Physical Exam: On exam he ambulates with a markedly antalgic gait. He has some weakness to right hip flexion and quadriceps plantar flexion dorsiflexion appears to be intact. Results & Data ([facility]) Vital Signs (Past 12 Hours) Vital Signs Temp Pulse Resp BP Pulse Ox 05/06/20 07:26 36.5 C 76 16 132/71 97
--- NOTE | 2020-05-06 15:33 | Hospitalist Progress Note ---
Date of Service May 06, 2020 Assessment & Plan (1) Lumbar radiculopathy: P/w intractable RLE radiculopathy, weakness x 2 weeks s/p fall in the shower. CT abd/pel with right paracentral HNP L3, mod-severe central canal stenosis L2-4 , seems consistent with pain and weakness on exam and by history -cannot get MRI due to pacer - CT lumbar spine showing severe multilevel degenerative disc disease and multilevel facet arthrosis. Severe central canal stenosis at L4, mod to severe central canal stenosis L2-L3, possible right paracentral disc herniation posterior to L3 vertebral body. -Morphine changed to tramadol after discussion with patient. -APAP prn pain -continue prednisone burst 40mg daily -continue home gabapentin 300 bid and 900 qhs, consider uptitrating for improved pain control -continue Cymbalta 60mg daily -PT/OT consults placed Ortho Spine consult placed - patient will likely require surgical decompression. Will consult cardiology for further risk stratification given significant cardiac history (2) Aneurysm of ascending aorta: noted in history, follows with Cardio (3) Carotid artery stenosis: noted, follows with Cardio, carotid US periodically continue ASA, statin (4) Hyperlipidemia: continue statin (5) Asthma with COPD: not in exacerbation continue albuterol prn (6) CAD in [place] artery: s/p 7 stents continue ASA 1/2 baby ASA daily continue statin, ACEi, BB (7) Diabetes mellitus type 2, controlled: A1c 7.6% Pharmacy glycemic consult for hypoglycemia this am ADA diet (8) History of TIA (transient ischemic attack): continue ASA, statin, BP control, diabetes control (9) Benign essential hypertension: BPs controlled continue lasix, ACEi, metoprolol (10) Myelodysplastic syndrome: stable, follow as outpt (11) PTSD (post-traumatic stress disorder): stable continue home lamictal, duloxetine, buspar (12) S/P aortic valve replacement with bioprosthetic valve: Porcine valve follows with [place] [facility] continue ASA (13) Dementia: Mild cognitive impairment stable continue Aricept and Namenda (14) BPH (benign prostatic hyperplasia): no acute issues continue home finasteride (15) 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 Now recovered repeat COVID-19 test here now negative no precautions needed (17) Constipation: No BM for 5 days per pt report as it is too painful for patient to sit on toilet. Will order bisacodyl suppository and miralax prn (18) DVT prophylaxis: Heparin SQ, SCDs Admission and Anticipated Discharge Date Admission Date: May 05, 2020 Subjective Mr. Wright continues to have lumbar back pain with radiculopathy to the right leg from buttock wrapping to knee. He is weak with ambulation. No numbness, no loss of control of bowels or bladder. ROS Constitutional: no chills, aches, sweats or fever Respiratory: no sob,cough, sputum, or wheezing Cardiac: no chest pain, palpitations, edema, orthopnea or lightheadedness GI: no abdominal pain, nausea, vomiting, diarrhea or constipation : no dysuria or hesitancy Extremities: see HPI Skin: no rash All other systems reviewed and negative Physical Exam Physical Exam: General: no distress Eyes: normal inspection, PERLL Respiratory: chest non tender, clear to auscultation, normal breath sounds, no respiratory distress, no accessory muscle use Cardiac: regular rate and rhythm, no rub or gallop, no murmur, no edema, no jvd GI/: active bowel sounds, no abd pain or tenderness, soft, non distended Extremities: normal range of motion, normal strength, non tender Neuro/Psych: alert and oriented x 3, normal mood and affect Skin: normal color, dry Results & Data Results & Data ([facility]) Vital Signs (Past 12 Hours) Vital Signs Temp Pulse Resp BP Pulse Ox 05/06/20 15:09 36.6 C 85 16 110/61 95 05/06/20 07:26 36.5 C 76 16 132/71 97 PG Care Time/CCT Total # of Minutes Spent Total Time Spent with Patient: Total time spent is greater than 50% in coordination of care (as documented) at patient's floor/unit and/or counseling patient: Coding Level of Care Code 30727 Subseq Hosp Care Lvl 3 Diagnoses Lumbar radiculopathy M54.16 Aneurysm of ascending aorta I71.2 Carotid artery stenosis I65.29 Hyperlipidemia E78.5 Asthma with COPD J44.9 CAD in [place] artery I25.10 Diabetes mellitus type 2, controlled E11.9 History of TIA (transient ischemic attack) Z86.73 Benign essential hypertension I10 Myelodysplastic syndrome D46.9 PTSD (post-traumatic stress disorder) F43.10 S/P aortic valve replacement with bioprosthetic valve Z95.3 Dementia F03.90 BPH (benign prostatic hyperplasia) N40.0 Pacemaker Z95.0 COVID-19 U07.1 Constipation K59.00 DVT prophylaxis Z29.9
[2020-05-06] MEDS: lamoTRIgine 100 MG TAB PO SCH (20:12)
[2020-05-06] MEDS: ATORVASTATIN 40 MG TAB PO SCH (20:13)
[2020-05-06] MEDS ORDERED: INSULIN GLARGINE SOLOSTAR 100 UNITS/ML 3 ML PEN SC SCH (21:00)
[2020-05-07 06:29] LABS: Basophils # (auto) 0.04 K/uL (0-0.2); Basophils % (auto) 0.3 %; Eosinophils # (auto) 0.06 K/uL (0-0.5); Eosinophils % (auto) 0.5 %; Hemoglobin 11.4 g/dL (14.0-18.0); Immature Granulocytes # (auto) 0.03 K/uL (0.00-0.02); Immature Granulocytes % (auto) 0.2 %; Lymphocytes # (auto) 3.09 K/uL (1.2-3.4); Mean Corpuscular Hemoglobin 31.3 pg (25-34); Mean Corpuscular Hgb Conc 32.6 g/dL (32-36); Mean Corpuscular Volume 96.2 fL (80-100); Mean Platelet Volume 11.1 fL (7.4-10.4); Monocytes # (auto) 1.32 K/uL (0.11-0.59); Monocytes % (auto) 10.3 %; Neutrophils # (auto) 8.31 K/uL (1.4-6.5); Neutrophils % (auto) 64.7 %; Nucleated RBC # (auto) 0.07 K/uL (0-0); Nucleated RBC % (auto) 0.6 %; Platelet Count 338 K/uL (130-400); RDW Coefficient of Variation 20.3 % (11.5-14.5); RDW Standard Deviation 72.6 fL (36.4-46.3); Red Blood Count 3.64 M/uL (4.7-6.1); White Blood Count 12.85 K/uL (4.8-10.8)
--- NOTE | 2020-05-07 06:53 | Electrocardiogram Report ---
Test Reason : Blood Pressure : / mmHG Vent. Rate : 073 BPM Atrial Rate : 073 BPM P-R Int : 174 ms QRS Dur : 180 ms QT Int : 470 ms P-R-T Axes : 051 -66 111 degrees QTc Int : 517 ms Atrial-sensed ventricular-paced rhythm Abnormal ECG When compared with ECG of 21-OCT-2018 22:41, Vent. rate has decreased BY 19 BPM Confirmed by Raymundo Saba ([id number]) on 05/07/2020 6:52:55 AM Referred By: REFERRED SELF Confirmed By:Raymundo Saba
[2020-05-07 06:57] LABS: Albumin Level 3.9 gm/dl (3.4-5.0); Anisocytosis Present; BUN Creatinine Ratio 30.1 (10-20); Calcium 9.3 mg/dl (8.5-10.1); Globulin 4.1 gm/dl (2.5-4.0); Hypochromasia Present; Potassium 4.1 mmol/L (3.5-5.1)
[2020-05-07] MEDS ORDERED: INSULIN HUMAN NPH SC SCH (07:30)
[2020-05-07 08:15] LABS: Albumin Globulin Ratio 0.9 (0.9-2); Creatinine Clr Calc Pharmacy 56.9 ml/min; Est GFR (African American) 65.2; Est GFR (Non-African American) 56.2
[2020-05-07] MEDS: GABAPENTIN 300 MG CAP PO SCH ×4 (08:35→21:31)
[2020-05-07] MEDS: ACETAMINOPHEN 500 MG TAB PO SCH ×3 (08:35→21:32)
[2020-05-07] MEDS: FUROSEMIDE 20 MG TAB PO SCH (08:36)
[2020-05-07] MEDS: busPIRone 15 MG TAB PO SCH ×2 (08:36→21:33)
[2020-05-07] MEDS: METOPROLOL TARTRATE 25 MG TAB PO SCH ×2 (08:36→21:43)
[2020-05-07] MEDS: LIDOCAINE 5% 1 PATCH TD SCH (08:37)
[2020-05-07] MEDS: FINASTERIDE 5 MG TAB PO SCH (08:37)
[2020-05-07] MEDS: DULoxetine HCL 60 MG CAP PO SCH (08:37)
[2020-05-07] MEDS: MEMANTINE HCL 5 MG TAB PO SCH ×2 (08:37→21:33)
[2020-05-07] MEDS: ENALAPRIL MALEATE 10 MG TAB PO SCH (08:37)
[2020-05-07] MEDS: DONEPEZIL HCL 10 MG TAB PO SCH (08:37)
[2020-05-07] MEDS: FLUTICASONE PROPIONATE NA SPR 16 GM BTL NAE SCH (08:38)
[2020-05-07] MEDS: predniSONE 20 MG TAB PO SCH (08:39)
[2020-05-07] MEDS: DOCUSATE SODIUM 100 MG CAP PO SCH ×2 (08:39→21:29)
[2020-05-07] MEDS: HEPARIN SOD 5,000 UNIT/0.5 ML VIAL SQ SCH ×2 (08:42→21:46)
[2020-05-07] MEDS: INSULIN ASPART 100 UNITS/ML 3 ML PEN SC SCH ×4 (08:57→21:50)
[2020-05-07] MEDS ORDERED: INSULIN GLARGINE SOLOSTAR 100 UNITS/ML 3 ML PEN SC SCH ×2 (09:00→21:00)
[2020-05-07] MEDS: ASPIRIN 81 MG CHEW PO SCH (09:12)
[2020-05-07] MEDS ORDERED: POLYETHYLENE (MIRALAX) 17 GM PACK PO ONE (09:51)
[2020-05-07] MEDS ORDERED: bisacodyL 10 MG SUPP PR STA (09:51)
--- NOTE | 2020-05-07 11:32 | Orthopedic Progress Note ---
Date of Service May 07, 2020 Assessment & Plan (1) Lumbar disc herniation: Admission and Anticipated Discharge Date Admission Date: May 05, 2020 At this time we made n.p.o. after midnight with plan for lumbar decompression possible fusion L3-4 L4-5 tomorrow. Risk benefits pros cons alternatives outlined in detail. All questions addressed. Subjective Lungs yesterday with the patient and his reviewing his clinical status and treatment options. He would like to pursue surgical intervention. Physical Exam Physical Exam: Patient is in bed uncomfortable with pain in the right leg. Results & Data ([facility]) Vital Signs (Past 12 Hours) Vital Signs Temp Pulse Resp BP Pulse Ox 05/07/20 07:20 36.5 C 76 18 121/74 95 05/06/20 23:39 36.6 C 79 18 117/69 94
--- NOTE | 2020-05-07 11:40 | Hospitalist Progress Note ---
Date of Service May 07, 2020 Assessment & Plan (1) Lumbar radiculopathy: P/w intractable RLE radiculopathy, weakness x 2 weeks s/p fall in the shower. CT abd/pel with right paracentral HNP L3, mod-severe central canal stenosis L2-4 , seems consistent with pain and weakness on exam and by history -cannot get MRI due to pacer - CT lumbar spine showing severe multilevel degenerative disc disease and multilevel facet arthrosis. Severe central canal stenosis at L4, mod to severe central canal stenosis L2-L3, possible right paracentral disc herniation posterior to L3 vertebral body. -continue pain control -continue prednisone burst 40mg daily - today is day 3 -continue home gabapentin 300 bid and 900 qhs -continue Cymbalta 60mg daily -PT/OT consults placed Ortho Spine consult placed - patient will require surgical decompression and is scheduled for tomorrow. NPO after mn except meds. Patient is a moderate risk for surgery. RCRI is 15% which was discussed with patient and his . Electrolytes are wnl. History of asthma/COPD with no sign of exacerbation. However, given patient's recent COVID infection (03/18) will order preop CXR. Per cardiology - patient is acceptable surgical risk and can proceed but will need to have his dose of lopressor 12.5 mg and ASA the morning of surgery with a sip of water. No need for further cardiac workup. Patient is optimized for surgery barring any unforeseen findings on CXR (2) Aneurysm of ascending aorta: noted in history, follows with Cardio (3) Carotid artery stenosis: noted, follows with Cardio, carotid US periodically continue ASA, statin (4) Hyperlipidemia: continue statin (5) Asthma with COPD: not in exacerbation continue albuterol prn (6) CAD in [place] artery: s/p 7 stents continue ASA continue statin, ACEi, BB (7) Diabetes mellitus type 2, controlled: A1c 7.6% Pharmacy glycemic consult for hypoglycemia this am ADA diet (8) History of TIA (transient ischemic attack): continue ASA, statin, BP control, diabetes control (9) Benign essential hypertension: BPs controlled continue lasix, ACEi, metoprolol (10) Myelodysplastic syndrome: stable, follow as outpt (11) PTSD (post-traumatic stress disorder): stable continue home lamictal, duloxetine, buspar (12) S/P aortic valve replacement with bioprosthetic valve: Porcine valve follows with [place] [facility] continue ASA (13) Dementia: Mild cognitive impairment stable continue Aricept and Namenda (14) BPH (benign prostatic hyperplasia): no acute issues continue home finasteride (15) 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 Now recovered repeat COVID-19 test here now negative no precautions needed (17) Constipation: Resolved (18) Leukocytosis: Appears to be baseline - myelodysplastic syndrome as above (19) DVT prophylaxis: Heparin SQ, SCDs Admission and Anticipated Discharge Date Admission Date: May 05, 2020 Subjective Mr. Wright continues to have pain that radiates into his left lower leg. He is not having any changes in his bladder and has had a bowel movement today after quite a number of days of constipation. ROS Constitutional: no chills, aches, sweats or fever Respiratory: no sob,cough, sputum, or wheezing Cardiac: no chest pain, palpitations, edema, orthopnea or lightheadedness GI: no abdominal pain, nausea, vomiting, diarrhea or constipation : no dysuria or hesitancy Extremities: no joint pain or weakness Skin: no rash All other systems reviewed and negative Physical Exam Physical Exam: General: no distress Eyes: normal inspection, PERLL Respiratory: chest non tender, clear to auscultation, normal breath sounds, no respiratory distress, no accessory muscle use Cardiac: regular rate and rhythm, no rub or gallop, systolic murmur, no edema, no jvd GI/: active bowel sounds, no abd pain or tenderness, soft, non distended Extremities: normal range of motion, normal strength, non tender Neuro/Psych: alert and oriented x 3, normal mood and affect Skin: normal color, dry Results & Data Results & Data ([facility]) Vital Signs (Past 12 Hours) Vital Signs Temp Pulse Resp BP Pulse Ox 05/07/20 07:20 36.5 C 76 18 121/74 95 05/06/20 23:39 36.6 C 79 18 117/69 94 PG Care Time/CCT Total # of Minutes Spent Total Time Spent with Patient: Total time spent is greater than 50% in coordination of care (as documented) at patient's floor/unit and/or counseling p atient: Coding Level of Care Code 44864 Subseq Hosp Care Lvl 3 Diagnoses Lumbar radiculopathy M54.16 Aneurysm of ascending aorta I71.2 Carotid artery stenosis I65.29 Hyperlipidemia E78.5 Asthma with COPD J44.9 CAD in [place] artery I25.10 Diabetes mellitus type 2, controlled E11.9 History of TIA (transient ischemic attack) Z86.73 Benign essential hypertension I10 Myelodysplastic syndrome D46.9 PTSD (post-traumatic stress disorder) F43.10 S/P aortic valve replacement with bioprosthetic valve Z95.3 Dementia F03.90 BPH (benign prostatic hyperplasia) N40.0 Pacemaker Z95.0 COVID-19 U07.1 Constipation K59.00 Leukocytosis D72.829 DVT prophylaxis Z29.9
--- NOTE | 2020-05-07 14:08 | XRay Report ---
XR chest 2V PA/lateral HISTORY: preop COMPARISON: Chest 03/18/2020. FINDINGS: Symmetric nodular densities within the lung bases favor nipple shadows. Stable calcified gr anuloma within the left medial lung base. The heart remains borderline enlarged. There are poststerno julita changes, a cardiac valve prosthesis, and a left-sided dual-chamber pacemaker. No pleural effusio ns. No pneumothorax. Prior cholecystectomy. No new focal lung consolidations to suggest pneumonia. No evidence for pulmonary edema. IMPRESSION: No significant change compared to the prior study. No acute process. ACT 112: Negative or not required by law. Electronically signed by: Aldo Brooks M.D. 05/07/2020 2:07 PM
--- NOTE | 2020-05-07 15:08 | Pharmacy Report ---
Glycemic Control Progress Note - Date of Service May 07, 2020 - Scope Glycemic Pharmacist consulted for glycemic control to write orders per [facility] inpatient glycemic control protocol. - Objective Accuchecks BSG(last 24 hours):: 05/06/20 05/06/20 05/07/20 17:09 20:32 05:56 Glucose 52 L* POC Glucose 251 H 204 H 05/07/20 05/07/20 05/07/20 06:16 06:18 06:51 Glucose POC Glucose 61 L* 62 L* 113 H 05/07/20 05/07/20 08:32 12:12 Glucose POC Glucose 71 100 H HbA1c:: Hemoglobin A1c 7.6 % (4.5-5.6) H 05/06/20 05:30 - Recent Pertinent Medications The patient is currently receiving: * Basal insulin: Lantus 30 units SQ in the morning and 10 units in the evening * Correctional Insulin: Novolog Correction per scale ACHS Goal Range: Low 120 mg/dL - High 160 mg/dL Correction Factor: 25 mg/dL/unit * Prandial insulin: Per carb ratio of 1 unit per 9 grams CHO consumed - Outpatient Anti-Diabetic Meds Lantus 30 units BID Aloglipitin 12.5 qAM Glimepiride 4 mg BID - Assessment & Plan ASSESSMENT: * See progress note from 05/06/2020 for more background info, in short: * Pt receiving SQ basal bolus insulin regimen for hyperglycemia secondary to baseline DM (outpatient regimen on hold). Patient on prednisone 40 mg PO daily due to intractable back pain. * Patient is currently receiving an average of 57 units of insulin per day * 40 units of basal insulin * 17 units of prandial/correctional insulin * BSGs ranging 45 - 251 mg/dl over the past 24hrs * Changes needed to insulin regimen: * AM Fasting BSG = 52 mg/dl. This is below goal range for patient based on inpatient targets and co-morbidities. Patient's fasting is still below goal range but improved compared to yesterday - 45 vs 52 mg/dL. Held morning Lantus until evening because lunch BSG did not improve much compared to the morning (only 100 mg/dL). Will order some Lantus for tonight if BSG rebounds beyond 160 mg/dL. Will choose a dose half of what patient received yesterday. * Post-prandial BSGs were elevated yesterday -- added NPH 30 units (0.4 units/kg) and slightly tightened carbohydrate ratio. * Total daily dose = ? units/day --- depends on steroid use. PLAN FOR INPATIENT GLYCEMIC CONTROL: * Lantus 20 units SQ tonight if BSG > 160 mg/dL + addition of NPH 30 units SQ with prednisone * Continuing correction factor of 25 mg/dl/unit * TIGHTENING carb ratio to 1 unit per 7 grams CHO consumed * Continuing goal range of Low 110 mg/dL - High 140 mg/dL * Please note that the plan above was derived based on current level of insulin resistance and hospital stress. These recommendations are appropriate for inpatient admission only. Plan of care upon discharge will need to be reassessed to avoid potential outpatient hypo/hyperglycemia. Thank you.
[2020-05-07 15:26] LABS: Hematocrit (blood only) 34.9 % (42-52); Hemoglobin 11.7 g/dL (14.0-18.0); Mean Corpuscular Hemoglobin 32.1 pg (25-34); Mean Corpuscular Hgb Conc 33.5 g/dL (32-36); Mean Corpuscular Volume 95.9 fL (80-100); Mean Platelet Volume 11.2 fL (7.4-10.4); Nucleated RBC # (auto) 0.07 K/uL (0-0); Nucleated RBC % (auto) 0.5 %; Platelet Count 331 K/uL (130-400); RDW Coefficient of Variation 20.4 % (11.5-14.5); RDW Standard Deviation 71.9 fL (36.4-46.3); Red Blood Count 3.64 M/uL (4.7-6.1); White Blood Count 13.14 K/uL (4.8-10.8)
[2020-05-07] MEDS: ATORVASTATIN 40 MG TAB PO SCH (21:32)
[2020-05-07] MEDS: lamoTRIgine 100 MG TAB PO SCH (21:33)
[2020-05-08] MEDS ORDERED: Nursing to Pharmacy Communication SCH ×2 (06:00→15:45)
[2020-05-08 06:35] LABS: Hematocrit (blood only) 36.7 % (42-52); Hemoglobin 12.3 g/dL (14.0-18.0); Mean Corpuscular Hgb Conc 33.5 g/dL (32-36); Mean Corpuscular Volume 95.6 fL (80-100); Mean Platelet Volume 11.5 fL (7.4-10.4); Nucleated RBC # (auto) 0.08 K/uL (0-0); Nucleated RBC % (auto) 0.5 %; Platelet Count 345 K/uL (130-400); RDW Coefficient of Variation 20.5 % (11.5-14.5); RDW Standard Deviation 72.6 fL (36.4-46.3); Red Blood Count 3.84 M/uL (4.7-6.1); White Blood Count 14.47 K/uL (4.8-10.8)
[2020-05-08 06:59] LABS: BUN Creatinine Ratio 30.5 (10-20); Calcium 9.4 mg/dl (8.5-10.1); Creatinine Clr Calc Pharmacy 53.9 ml/min; Est GFR (Non-African American) 52.7; Potassium 4.2 mmol/L (3.5-5.1)
[2020-05-08] MEDS: INSULIN ASPART 100 UNITS/ML 3 ML PEN SC SCH ×4 (07:15→21:08)
[2020-05-08] MEDS: LIDOCAINE 5% 1 PATCH TD SCH (08:36)
[2020-05-08] MEDS: traMADol HCL 50 MG TABLET PO PRN (08:39)
[2020-05-08] MEDS: DOCUSATE SODIUM 100 MG CAP PO SCH ×2 (08:40→20:58)
[2020-05-08] MEDS: DONEPEZIL HCL 10 MG TAB PO SCH (08:40)
[2020-05-08] MEDS: FUROSEMIDE 20 MG TAB PO SCH (08:40)
[2020-05-08] MEDS: METOPROLOL TARTRATE 25 MG TAB PO SCH ×2 (08:40→21:00)
[2020-05-08] MEDS: FINASTERIDE 5 MG TAB PO SCH (08:40)
[2020-05-08] MEDS: MEMANTINE HCL 5 MG TAB PO SCH ×2 (08:41→21:02)
[2020-05-08] MEDS: predniSONE 20 MG TAB PO SCH (08:41)
[2020-05-08] MEDS: GABAPENTIN 300 MG CAP PO SCH ×4 (08:41→21:03)
[2020-05-08] MEDS: busPIRone 15 MG TAB PO SCH ×2 (08:41→20:57)
[2020-05-08] MEDS: ENALAPRIL MALEATE 10 MG TAB PO SCH (08:41)
[2020-05-08] MEDS: DULoxetine HCL 60 MG CAP PO SCH (08:41)
[2020-05-08] MEDS: ACETAMINOPHEN 500 MG TAB PO SCH ×3 (08:42→21:03)
[2020-05-08] MEDS: FLUTICASONE PROPIONATE NA SPR 16 GM BTL NAE SCH (08:45)
[2020-05-08] MEDS: ASPIRIN 81 MG CHEW PO SCH (08:45)
[2020-05-08] MEDS ORDERED: INSULIN GLARGINE SOLOSTAR 100 UNITS/ML 3 ML PEN SC ONE (13:00)
--- NOTE | 2020-05-08 13:51 | Hospitalist Progress Note ---
Date of Service May 08, 2020 Assessment & Plan (1) Lumbar radiculopathy: P/w intractable RLE radiculopathy, weakness x 2 weeks s/p fall in the shower. CT abd/pel with right paracentral HNP L3, mod-severe central canal stenosis L2-4 , seems consistent with pain and weakness on exam and by history -cannot get MRI due to pacer - CT lumbar spine showing severe multilevel degenerative disc disease and multilevel facet arthrosis. Severe central canal stenosis at L4, mod to severe central canal stenosis L2-L3, possible right paracentral disc herniation posterior to L3 vertebral body. -continue pain control -continue prednisone burst 40mg daily - today is day 3 -continue home gabapentin 300 bid and 900 qhs -continue Cymbalta 60mg daily -PT/OT consults placed Ortho Spine consult placed - patient will require surgical decompression and is scheduled for this afternoon (2) Aneurysm of ascending aorta: noted in history, follows with Cardio (3) Carotid artery stenosis: noted, follows with Cardio, carotid US periodically continue ASA, statin (4) Hyperlipidemia: continue statin (5) Asthma with COPD: not in exacerbation continue albuterol prn, added patient's home spiriva and symbicort that were not on his home list here (6) CAD in [place] artery: s/p 7 stents continue ASA continue statin, ACEi, BB (7) Diabetes mellitus type 2, controlled: A1c 7.6% Pharmacy glycemic consult for hypoglycemia this am ADA diet (8) History of TIA (transient ischemic attack): continue ASA, statin, BP control, diabetes control (9) Benign essential hypertension: BPs controlled continue lasix, ACEi, metoprolol (10) Myelodysplastic syndrome: stable, follow as outpt (11) PTSD (post-traumatic stress disorder): stable continue home lamictal, duloxetine, buspar (12) S/P aortic valve replacement with bioprosthetic valve: Porcine valve follows with [place] [facility] continue ASA (13) Dementia: Mild cognitive impairment stable continue Aricept and Namenda (14) BPH (benign prostatic hyperplasia): no acute issues continue home finasteride (15) 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 Now recovered repeat COVID-19 test here now negative no precautions needed (17) Constipation: Resolved (18) Leukocytosis: Appears to be baseline - myelodysplastic syndrome as above (19) DVT prophylaxis: SCDs Admission and Anticipated Discharge Date Admission Date: May 07, 2020 Subjective Mr. Wright continues to have back pain but otherwise has no complaints today. ROS Constitutional: no chills, aches, sweats or fever Respiratory: no sob,cough, sputum, or wheezing Cardiac: no chest pain, palpitations, edema, orthopnea or lightheadedness GI: no abdominal pain, nausea, vomiting, diarrhea or constipation : no dysuria or hesitancy Extremities: no joint pain or weakness Skin: no rash All other systems reviewed and negative Physical Exam Physical Exam: General: no distress Eyes: normal inspection, PERLL Respiratory: chest non tender, clear to auscultation, normal breath sounds, no respiratory distress, no accessory muscle use Cardiac: regular rate and rhythm, no rub or gallop, systolic murmur, no edema, no jvd GI/: active bowel sounds, no abd pain or tenderness, soft, non distended Extremities: normal range of motion, normal strength, non tender Neuro/Psych: alert and oriented x 3, normal mood and affect Skin: normal color, dry Results & Data Results & Data ([facility]) Vital Signs (Past 12 Hours) Vital Signs Temp Pulse Resp BP Pulse Ox 05/08/20 10:47 36.5 C 75 18 117/67 93 PG Care Time/CCT Total # of Minutes Spent Total Time Spent with Patient: Total time spent is greater than 50% in coordination of care (as documented) at patient's floor/unit and/or counseling patient: Coding Level of Care Code 46001 Subseq Hosp Care Lvl 2 Diagnoses Lumbar radiculopathy M54.16 Aneurysm of ascending aorta I71.2 Carotid artery stenosis I65.29 Hyperlipidemia E78.5 Asthma with COPD J44.9 CAD in [place] artery I25.10 Diabetes mellitus type 2, controlled E11.9 History of TIA (transient ischemic attack) Z86.73 Benign essential hypertension I10 Myelodysplastic syndrome D46.9 PTSD (post-traumatic stress disorder) F43.10 S/P aortic valve replacement with bioprosthetic valve Z95.3 Dementia F03.90 BPH (benign prostatic hyperplasia) N40.0 Pacemaker Z95.0 COVID-19 U07.1 Constipation K59.00 Leukocytosis D72.829 DVT prophylaxis Z29.9
--- NOTE | 2020-05-08 14:54 | Pharmacy Report ---
Glycemic Control Progress Note - Date of Service May 08, 2020 - Scope Glycemic Pharmacist consulted for glycemic control to write orders per [facility] inpatient glycemic control protocol. - Objective Accuchecks BSG(last 24 hours):: 05/07/20 05/07/20 05/08/20 17:10 20:40 05:36 Glucose 77 POC Glucose 113 H 122 H 05/08/20 05/08/20 05:53 12:00 Glucose POC Glucose 90 191 H HbA1c:: Hemoglobin A1c 7.6 % (4.5-5.6) H 05/06/20 05:30 - Recent Pertinent Medications The patient is currently receiving: * Basal insulin: Lantus 0 units every 12 hours * Correctional Insulin: Novolog Correction per scale ACHS Goal Range: Low 120 mg/dL - High 160 mg/dL Correction Factor: 25 mg/dL/unit * Prandial insulin: Per carb ratio of 1 unit per 7 grams CHO consumed - Outpatient Anti-Diabetic Meds lANTUS 30 UNITS BID ALOGLIPITIN 12.5 DAILY AMARYL 4 MG BID - Assessment & Plan ASSESSMENT: * See progress note from 05/06/2020 for more background info, in short: * Pt receiving SQ basal bolus insulin regimen for hyperglycemia secondary to baseline DM (outpatient regimen on hold). Patient currently NPO for surgery. Received PO prednisone 40 mg today. * Patient is currently receiving an average of 42 units of insulin per day * 30 units of basal insulin * 12 units of prandial/correctional insulin * BSGs ranging 52 - 122 mg/dl over the past 24hrs * Changes needed to insulin regimen: * AM Fasting BSG = 90 mg/dl. This is just slightly below goal range for patient based on inpatient targets and co-morbidities. Patient received on NPH for steroid hyperglycemia yesterday. Expect that at this point patient will require basal insulin. With lunch BSG of 191 mg/dL will give Lantus 20 units (half of what patient had previously received). * Post-prandial BSGs were in range yesterday but difficult to evaluate considering BSGs may have been suppressed by too much basal. Tighten CF for now. * Total daily dose = ? units. Will depend on steroids. PLAN FOR INPATIENT GLYCEMIC CONTROL: * Lantus 20 units SQ x 1 * TIGHTENING correction factor to 20 mg/dl/unit * Continuing carb ratio of 1 unit per 7 grams CHO consumed * Continuing goal range of Low 120 mg/dL - High 160 mg/dL * Please note that the plan above was derived based on current level of insulin resistance and hospital stress. These recommendations are appropriate for inpati ent admission only. Plan of care upon discharge will need to be reassessed to avoid potential outpatient hypo/hyperglycemia. Thank you.
--- NOTE | 2020-05-08 16:05 | Orthopedic Progress Note ---
Date of Service May 08, 2020 Assessment & Plan (1) Lumbar disc herniation: Admission and Anticipated Discharge Date Admission Date: May 07, 2020 Patient has severe spinal stenosis with superimposed lumbar hernia nucleus pulposus creating severe radiculopathy. We had planned for a lumbar decompression possible fusion L2-3 L3-4 today. Unfortunately we are having marked difficulty obtaining authorization through his insurance company. Hopefully this can be resolved as soon as possible and we can proceed with surgery. This was explained the patient is . They are obviously upset. We will move forward with surgery soon as possible. Subjective Patient continues to complain of severe right leg pain in the inability to ambulate. He is unable to tolerate any sitting secondary to severe pain. Left lower extremity is asymptomatic. Physical Exam Physical Exam: On exam he is in obvious distress. He has marked difficulty with hip flexion and quadriceps on the right at a 3+ to 4/5 strength. He has excellent strength testing on the left lower extremity. He has hyperesthesia to the right anterior thigh compared to the left. Results & Data ([facility]) Vital Signs (Past 12 Hours) Vital Signs Temp Pulse Resp BP Pulse Ox 05/08/20 14:56 36.6 C 82 20 101/64 93 05/08/20 10:47 36.5 C 75 18 117/67 93
[2020-05-08] MEDS: lamoTRIgine 100 MG TAB PO SCH (20:58)
[2020-05-08] MEDS: ATORVASTATIN 40 MG TAB PO SCH (20:59)
[2020-05-09] MEDS: traMADol HCL 50 MG TABLET PO PRN ×2 (00:39→06:11)
[2020-05-09 07:07] LABS: Hematocrit (blood only) 37.4 % (42-52); Hemoglobin 12.5 g/dL (14.0-18.0); Mean Corpuscular Hemoglobin 31.6 pg (25-34); Mean Corpuscular Hgb Conc 33.4 g/dL (32-36); Mean Corpuscular Volume 94.7 fL (80-100); Mean Platelet Volume 11.3 fL (7.4-10.4); Nucleated RBC % (auto) 0.7 %; Platelet Count 339 K/uL (130-400); RDW Coefficient of Variation 20.6 % (11.5-14.5); RDW Standard Deviation 72.5 fL (36.4-46.3); Red Blood Count 3.95 M/uL (4.7-6.1); White Blood Count 14.86 K/uL (4.8-10.8)
[2020-05-09] MEDS: ALBUTEROL HFA INHALER 8.5 GM INH SCH (07:16)
[2020-05-09] MEDS ORDERED: INSULIN HUMAN NPH SC SCH (07:30)
[2020-05-09 07:40] LABS: Calcium 8.9 mg/dl (8.5-10.1); Creatinine Clr Calc Pharmacy 49.1 ml/min; Est GFR (African American) 54.5; Potassium 4.4 mmol/L (3.5-5.1)
[2020-05-09] MEDS: LIDOCAINE 5% 1 PATCH TD SCH (08:13)
[2020-05-09] MEDS: UMECLIDINIUM BROMIDE 62.5MCG/BLISTER 7 PUFFS/INHALER INH SCH (08:17)
[2020-05-09] MEDS: FLUTICASONE PROPIONATE NA SPR 16 GM BTL NAE SCH (08:17)
[2020-05-09] MEDS: FLUTICASONE/VILANTEROL 200/25MCG 14 PUFFS/INHALER INH SCH (08:18)
[2020-05-09] MEDS: METOPROLOL TARTRATE 25 MG TAB PO SCH ×2 (08:19→20:54)
[2020-05-09] MEDS: DOCUSATE SODIUM 100 MG CAP PO SCH ×2 (08:19→20:57)
[2020-05-09] MEDS: DONEPEZIL HCL 10 MG TAB PO SCH (08:19)
[2020-05-09] MEDS: DULoxetine HCL 60 MG CAP PO SCH (08:19)
[2020-05-09] MEDS: predniSONE 20 MG TAB PO SCH (08:19)
[2020-05-09] MEDS: FINASTERIDE 5 MG TAB PO SCH (08:19)
[2020-05-09] MEDS: busPIRone 15 MG TAB PO SCH ×2 (08:19→20:56)
[2020-05-09] MEDS: ACETAMINOPHEN 500 MG TAB PO SCH ×3 (08:20→20:56)
[2020-05-09] MEDS: FUROSEMIDE 20 MG TAB PO SCH (08:20)
[2020-05-09] MEDS: ENALAPRIL MALEATE 10 MG TAB PO SCH (08:20)
[2020-05-09] MEDS: MEMANTINE HCL 5 MG TAB PO SCH ×2 (08:20→20:55)
[2020-05-09] MEDS: GABAPENTIN 300 MG CAP PO SCH ×4 (08:22→20:55)
[2020-05-09] MEDS: INSULIN GLARGINE SOLOSTAR 100 UNITS/ML 3 ML PEN SC SCH (09:14)
[2020-05-09] MEDS: ASPIRIN 81 MG CHEW PO SCH (09:15)
[2020-05-09] MEDS: HEPARIN SOD 5,000 UNIT/0.5 ML VIAL SQ SCH ×2 (09:15→20:57)
[2020-05-09] MEDS: INSULIN ASPART 100 UNITS/ML 3 ML PEN SC SCH ×4 (09:15→20:57)
--- NOTE | 2020-05-09 12:41 | Hospitalist Progress Note ---
Date of Service May 09, 2020 Assessment & Plan (1) Lumbar radiculopathy: P/w intractable RLE radiculopathy, weakness x 2 weeks s/p fall in the shower. CT abd/pel with right paracentral HNP L3, mod-severe central canal stenosis L2-4 , seems consistent with pain and weakness on exam and by history -cannot get MRI due to pacer - CT lumbar spine showing severe multilevel degenerative disc disease and multilevel facet arthrosis. Severe central canal stenosis at L4, mod to severe central canal stenosis L2-L3, possible right paracentral disc herniation posterior to L3 vertebral body. -continue pain control -continue prednisone burst 40mg daily - discontinue and return to home dosing of 10 mg daily -continue home gabapentin 300 bid and 900 qhs -continue Cymbalta 60mg daily -PT/OT consults placed Ortho Spine consult placed - patient will require surgical decompression and is scheduled for this afternoon (2) Aneurysm of ascending aorta: noted in history, follows with Cardio (3) Carotid artery stenosis: noted, follows with Cardio, carotid US periodically continue ASA, statin (4) Hyperlipidemia: continue statin (5) Asthma with COPD: not in exacerbation continue albuterol prn, added patient's home spiriva and symbicort that were not on his home list here (6) CAD in [place] artery: s/p 7 stents continue ASA continue statin, ACEi, BB (7) Diabetes mellitus type 2, controlled: A1c 7.6% Pharmacy glycemic consult for hypoglycemia this am ADA diet (8) History of TIA (transient ischemic attack): continue ASA, statin, BP control, diabetes control (9) Benign essential hypertension: BPs controlled continue lasix, ACEi, metoprolol (10) Myelodysplastic syndrome: stable, follow as outpt (11) PTSD (post-traumatic stress disorder): stable continue home lamictal, duloxetine, buspar (12) S/P aortic valve replacement with bioprosthetic valve: Porcine valve follows with [facility] [facility] continue ASA (13) Dementia: Mild cognitive impairment stable continue Aricept and Namenda (14) BPH (benign prostatic hyperplasia): no acute issues continue home finasteride (15) 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 Now recovered repeat COVID-19 test here now negative no precautions needed (17) Constipation: Resolved (18) Leukocytosis: Appears to be baseline - myelodysplastic syndrome as above (19) DVT prophylaxis: SCDs Admission and Anticipated Discharge Date Admission Date: May 07, 2020 Subjective Mr. Wright is very frustrated with the delay in his surgery due to lack of insurance authorization. He continues to have back pain with radiculopathy down his right leg. No numbness, no loss of control of bowel or bladder. ROS Constitutional: no chills, aches, sweats or fever Respiratory: no sob,cough, sputum, or wheezing Cardiac: no chest pain, palpitations, edema, orthopnea or lightheadedness GI: no abdominal pain, nausea, vomiting, diarrhea or constipation : no dysuria or hesitancy Extremities: no joint pain or weakness Skin: no rash All other systems reviewed and negative Physical Exam Physical Exam: General: no distress Eyes: normal inspection, PERLL Respiratory: chest non tender, clear to auscultation, normal breath sounds, no respiratory distress, no accessory muscle use Cardiac: regular rate and rhythm, no rub or gallop, systolic murmur, no edema, no jvd GI/: active bowel sounds, no abd pain or tenderness, soft, non distended Extremities: normal range of motion, normal strength, non tender Neuro/Psych: alert and oriented x 3, normal mood and affect Skin: normal color, dry Results & Data Results & Data ([facility]) Vital Signs (Past 12 Hours) Vital Signs Temp Pulse Resp BP Pulse Ox 05/09/20 07:56 36.5 C 77 18 122/74 93 05/09/20 07:19 84 18 92 PG Care Time/CCT Total # of Minutes Spent Total Time Spent with Patient: Total time spent is greater than 50% in coordination of care (as documented) at patient's floor/unit and/or counseling patient: Coding Level of Care Code 74100 Subseq Hosp Care Lvl 2 Diagnoses Lumbar radiculopathy M54.16 Aneurysm of ascending aorta I71.2 Carotid artery stenosis I65.29 Hyperlipidemia E78.5 Asthma with COPD J44.9 CAD in [place] artery I25.10 Diabetes mellitus type 2, controlled E11.9 History of TIA (transient ischemic attack) Z86.73 Benign essential hypertension I10 Myelodysplastic syndrome D46.9 PTSD (post-traumatic stress disorder) F43.10 S/P aortic valve replacement with bioprosthetic valve Z95.3 Dementia F03.90 BPH (benign prostatic hyperplasia) N40.0 Pacemaker Z95.0 COVID-19 U07.1 Constipation K59.00 Leukocytosis D72.829 DVT prophylaxis Z29.9
--- NOTE | 2020-05-09 14:57 | Pharmacy Report ---
Glycemic Control Progress Note - Date of Service May 09, 2020 - Scope Glycemic Pharmacist consulted for glycemic control to write orders per [facility] inpatient glycemic control protocol. - Objective Accuchecks BSG(last 24 hours):: 05/08/20 05/08/20 05/09/20 16:24 19:35 06:07 Glucose 93 POC Glucose 169 H 176 H 05/09/20 05/09/20 08:11 12:12 Glucose POC Glucose 125 H 238 H HbA1c:: Hemoglobin A1c 7.6 % (4.5-5.6) H 05/06/20 05:30 - Recent Pertinent Medications The patient is currently receiving: * Basal insulin: Lantus 20 units SQ x 1 * Correctional Insulin: Novolog Correction per scale ACHS Goal Range: Low 120 mg/dL - High 160 mg/dL Correction Factor: 20 mg/dL/unit * Prandial insulin: Per carb ratio of 1 unit per 7 grams CHO consumed - Outpatient Anti-Diabetic Meds Lantus 30 units BID Alogliptin 12.5 mg qAM Amaryl 4 mg PO BID - Assessment & Plan ASSESSMENT: * See progress note from 05/06/20 for more background info, in short: * Pt receiving SQ basal bolus insulin regimen for hyperglycemia secondary to baseline DM (outpatient regimen on hold). Patient was receiving a steroid bolus of prednisone 40 mg PO. Now this is d/c'ed and home dose of 10 mg started for tomorrow. * Patient is currently receiving an average of 29 units of insulin per day * 20 units of basal insulin * 9 units of prandial/correctional insulin * BSGs ranging 90 - 191 mg/dl over the past 24hrs * Changes needed to insulin regimen: * AM Fasting BSG = 93 mg/dl. This is in goal range for patient based on inpatient targets and co-morbidities. Will continue Lantus for now at a slightly reduced dose of 15 units. * Post-prandial BSGs were elevated a little yesterday. Tightened CR slightly at lunch. For tomorrow, will not give NPH since prednisone is back to home dose. Will tighten CF/CR. * Total daily dose = ~40-50 units. PLAN FOR INPATIENT GLYCEMIC CONTROL: * Starting Lantus 15 units SQ daily * TIGHTENING correction factor to 15 mg/dl/unit * TIGHTENING carb ratio to 1 unit per 5 grams CHO consumed * Changing goal range to Low 110 mg/dL - High 140 mg/dL * Please note that the plan above was derived based on current level of insulin resistance and hospital stress. These recommendations are appropriate for inpatient admission only. Plan of care upon discharge will need to be reassessed to avoid potential outpatient hypo/hyperglycemia. Thank you.
[2020-05-09] MEDS: lamoTRIgine 100 MG TAB PO SCH (20:56)
[2020-05-09] MEDS: ATORVASTATIN 40 MG TAB PO SCH (20:57)
[2020-05-10] MEDS ORDERED: Nursing to Pharmacy Communication SCH ×2 (04:15→18:45)
[2020-05-10] MEDS: INSULIN ASPART 100 UNITS/ML 3 ML PEN SC SCH ×4 (06:46→21:05)
[2020-05-10] MEDS: ALBUTEROL HFA INHALER 8.5 GM INH SCH (07:05)
[2020-05-10] MEDS ORDERED: INSULIN ASPART 100 UNITS/ML 3 ML PEN SC SCH (07:30)
[2020-05-10] MEDS: METOPROLOL TARTRATE 25 MG TAB PO SCH ×2 (08:26→21:00)
[2020-05-10] MEDS: ASPIRIN 81 MG CHEW PO SCH (08:27)
[2020-05-10] MEDS: traMADol HCL 50 MG TABLET PO PRN (08:37)
[2020-05-10] MEDS: FLUTICASONE/VILANTEROL 200/25MCG 14 PUFFS/INHALER INH SCH (08:40)
[2020-05-10] MEDS: busPIRone 15 MG TAB PO SCH ×2 (08:40→21:01)
[2020-05-10] MEDS: GABAPENTIN 300 MG CAP PO SCH ×4 (08:40→21:00)
[2020-05-10] MEDS: DONEPEZIL HCL 10 MG TAB PO SCH (08:40)
[2020-05-10] MEDS: UMECLIDINIUM BROMIDE 62.5MCG/BLISTER 7 PUFFS/INHALER INH SCH (08:41)
[2020-05-10] MEDS: DULoxetine HCL 60 MG CAP PO SCH (08:41)
[2020-05-10] MEDS: FUROSEMIDE 20 MG TAB PO SCH (08:41)
[2020-05-10] MEDS: FLUTICASONE PROPIONATE NA SPR 16 GM BTL NAE SCH (08:41)
[2020-05-10] MEDS: DOCUSATE SODIUM 100 MG CAP PO SCH ×2 (08:41→21:01)
[2020-05-10] MEDS: MEMANTINE HCL 5 MG TAB PO SCH ×2 (08:42→21:01)
[2020-05-10] MEDS: FINASTERIDE 5 MG TAB PO SCH (08:42)
[2020-05-10] MEDS: ACETAMINOPHEN 500 MG TAB PO SCH ×3 (08:42→21:01)
[2020-05-10] MEDS: ENALAPRIL MALEATE 10 MG TAB PO SCH (08:42)
[2020-05-10] MEDS ORDERED: predniSONE 10 MG TABLET PO SCH (09:00)
--- NOTE | 2020-05-10 09:41 | Pharmacy Report ---
Pharmacy Glycemic Short Note 2 - Date of Service May 10, 2020 - Glycemic Short BSG Results (Last 24 hours): 05/09/20 05/09/20 05/09/20 12:12 16:28 20:28 POC Glucose 238 H 213 H 178 H 05/10/20 06:01 POC Glucose 120 H OUTPATIENT ANTIDIABETIC REGIMEN: * Lantus 30 units SQ BID * Alogliptin 12.5mg PO QAM * Glimepiride 4mg BID * A1c = 7.6% on 05/06/20 ASSESSMENT: * Pt has received 84 units of insulin over the past 24hrs * 45 units of basal with NPH + Lantus * 39 units of bolus with NovoLog * BSGs 13-814-880-178-120 mg/dl * Steroids tapered from prednisone 40mg daily down to 10mg daily (outpatient dosing). This should yield a significant improvement in hyperglycemia. Lower total daily insulin dose will be needed today * Pt is NPO today for lumbar decompression. Will adjust insulin dosing acc ordingly for NPO. * Goal is to maintain BSGs <200 mg/dl (ideally <150 mg/dl) to prevent post op complications PLAN FOR INPATIENT GLYCEMIC CONTROL: * Hold outpatient oral diabetes medications * Basal insulin * Lantus 15 units SQ daily (OK to give while NPO; this is 1/4 of outpatient dosing) * STOP NPH. No longer needed based on low dose prednisone * Bolus insulin: no change * NovoLog per scale ACHS or Q6hrs while NPO * Goal Range: Low 110 mg/dL - High 140 mg/dL * Correction Factor: 15 mg/dL/unit * Nutritional / Prandial insulin per carb ratio of 1 unit per 5 grams CHO consumed PLAN FOR DISCHARGE: * A1c = 7.6% on 05/06/20 * Goal A1c < 7% based on age/co-morbidities * No changes needed to outpatient regimen at ok. Could consider maximizing alogliptin dosing for tighter outpatient control
[2020-05-10 09:53] LABS: BUN Creatinine Ratio 36.4 (10-20); Calcium 8.9 mg/dl (8.5-10.1); Creatinine Clr Calc Pharmacy 46.6 ml/min; Est GFR (African American) 51.1; Est GFR (Non-African American) 44.1; Potassium 4.9 mmol/L (3.5-5.1)
[2020-05-10 09:58] LABS: Hematocrit (blood only) 37.7 % (42-52); Hemoglobin 12.5 g/dL (14.0-18.0); Mean Corpuscular Hemoglobin 31.9 pg (25-34); Mean Corpuscular Volume 96.2 fL (80-100); Mean Platelet Volume 11.9 fL (7.4-10.4); Nucleated RBC # (auto) 0.09 K/uL (0-0); Nucleated RBC % (auto) 0.6 %; Platelet Count 345 K/uL (130-400); RDW Coefficient of Variation 20.8 % (11.5-14.5); RDW Standard Deviation 73.3 fL (36.4-46.3); Red Blood Count 3.92 M/uL (4.7-6.1); White Blood Count 15.58 K/uL (4.8-10.8)
[2020-05-10] MEDS: INSULIN GLARGINE SOLOSTAR 100 UNITS/ML 3 ML PEN SC SCH (10:13)
[2020-05-10] MEDS: LIDOCAINE 5% 1 PATCH TD SCH (10:13)
[2020-05-10 10:17] LABS: Mean Corpuscular Hgb Conc 33.2 g/dL (32-36)
--- NOTE | 2020-05-10 13:45 | History & Physical Bridge Note ---
Date of Service May 10, 2020 History & Physical Bridge Note I have examined the patient, reviewed the History & Physical and in the interval since the performance of the History & Physical I have noted the following changes of clinical significance: no changes noted We plan for decompression possible fusion L2-3 and L3-4.
[2020-05-10] MEDS ORDERED: PROPOFOL IV EMULSION 10 MG/ML 20 ML VIAL IV ONE (13:48)
[2020-05-10] MEDS ORDERED: DEXAMETHASONE SOD INJ 4 MG/ML VIAL ONE (13:48)
[2020-05-10] MEDS ORDERED: ONDANSETRON INJ 2 MG/ML 2 ML VIAL ONE (13:48)
[2020-05-10] MEDS ORDERED: NEOSTIGMINE METHYLSULFATE 1 MG/ML 10ML VIAL ONE (13:48)
[2020-05-10] MEDS ORDERED: LIDOCAINE 2% 2 ML VIAL/AMP(20MG/ML) INFIL ONE (13:48)
[2020-05-10] MEDS ORDERED: GLYCOPYRROLATE 0.2 MG/ML VIAL ONE (13:48)
[2020-05-10] MEDS ORDERED: MIDAZOLAM HCL 1 MG/ML 2ML VIAL ONE (13:49)
[2020-05-10] MEDS ORDERED: fentaNYL citrate 100 MCG/2 ML VIAL ONE ×2 (13:49→15:30)
[2020-05-10] MEDS ORDERED: ROCURONIUM BROMIDE 10 MG/ML 5 ML VIAL IV ONE ×3 (13:49→15:38)
[2020-05-10] MEDS ORDERED: CLINDAMYCIN 600 MG/54 ML D5W IV ONE (13:53)
[2020-05-10] MEDS ORDERED: CLINDAMYCIN 600 MG/54 ML BAG IV SCH (14:00)
[2020-05-10] MEDS ORDERED: BACITRACIN INJ 50,000 UNIT VIAL ONE (14:15)
[2020-05-10] MEDS ORDERED: BUPIVACAINE/EPINEPHRINE 0.25% 1:200,000 30 ML VIAL ONE (14:15)
--- NOTE | 2020-05-10 14:28 | Anesthesiology Consultation ---
Date of Service May 10, 2020 Assessment & Plan Chart Review Chart Review: Acceptable Risk for Surgery Consults Requested none History Surgery Operation Date: 05/10/20 12:55 Proposed Procedures p L2-L3, L3-L4 Decompression, Possible Fusion, Spinal Cord Monitoring - Shaheed Brown DO Height/Weight Height: 5 ft 8 in Weight: 90 kg Allergies Allergy/AdvReac Type Severity Reaction Status Date / Time bee venom protein (honey bee) Allergy Unknown SWELLING Verified 05/05/20 13:38 codeine Allergy Unknown HALLUCINATI Verified 05/05/20 13:38 NG Penicillins Allergy Unknown UNKNOWN Verified 05/05/20 13:38 Sulfa (Sulfonamide Allergy Unknown "SULFA": Verified 05/05/20 13:38 Antibiotics) RASH Medications Home Medications Medication Instructions Recorded Confirmed Last Taken epinephrine [EpiPen] 0.3 mg IM Q3H PRN 10/21/18 05/05/20 Unknown finasteride 5 mg PO DAILY 10/21/18 05/05/20 05/05/20 metoprolol tartrate 12.5 mg PO BID 10/21/18 05/05/20 05/05/20 atorvastatin [Lipitor] 40 mg PO HS 10/22/18 05/05/20 05/04/20 donepezil 10 mg PO DAILY 10/22/18 05/05/20 05/05/20 duloxetine 60 mg PO DAILY 10/22/18 05/05/20 05/05/20 furosemide [Lasix] 20 mg PO DAILY 10/22/18 05/05/20 05/05/20 gabapentin 300 mg PO TID 10/22/18 05/05/20 05/05/20 hydrocortisone 1 applic TOPICAL HS PRN 10/22/18 05/05/20 05/05/20 lamotrigine 200 mg PO HS 10/22/18 05/05/20 05/04/20 memantine 5 mg PO BID 10/22/18 05/05/20 05/05/20 aspirin 81 mg tablet,delayed 40.5 mg PO DAILY tab 04/03/19 05/05/20 05/05/20 release nitroglycerin 0.4 mg sublingual 0.4 mg SUBLINGUAL DIRECTED PRN 04/03/19 05/05/20 Unknown tablet insulin glargine 100 unit/mL (3 30 units SUBCUT BID ml 07/25/19 05/05/20 05/05/20 mL) subcutaneous pen glimepiride 4 mg tablet 4 mg PO BID #180 tab 12/06/19 05/05/20 05/05/20 mupirocin 2 % topical ointment 1 appln TOP BID #15 gm 02/19/20 05/05/20 05/05/20 acetaminophen [Tylenol Extra 1,000 mg PO TID PRN 03/18/20 05/05/20 Unknown Strength] albuterol sulfate [ProAir HFA] 2 puffs INH Q4H PRN 03/18/20 05/05/20 Unknown alogliptin 12.5 mg PO QAM 03/18/20 05/05/20 05/05/20 benazepril [Lotensin] 10 mg PO DAILY 03/18/20 05/05/20 05/05/20 buspirone 15 mg PO BID 03/18/20 05/05/20 05/05/20 ciprofloxacin HCl [Cipro] 500 mg PO BID 03/18/20 05/05/20 05/05/20 fluticasone propionate [Flonase 2 spray INTRANASAL DAILY 03/18/20 05/05/20 05/05/20 Allergy Relief] gabapentin 600 mg PO HS 03/18/20 05/05/20 05/04/20 prednisone 10 mg tablet 10 mg PO DAILY #21 tab 05/02/20 05/05/20 05/05/20 Active Medications Generic Name Dose Route Start Last Admin Trade Name Duq PRN Reason Stop Dose Admin Acetaminophen 1,000 mg 05/06/20 14:00 05/10/20 08:42 Acetaminophen 500 Mg Tab PO 06/05/20 13:59 Not Given TID COLLIN Albuterol 2 puffs 05/09/20 09:00 05/10/20 07:05 Albuterol Hfa Inhaler 8.5 Gm INH 06/08/20 08:59 2 puffs DAILY COLLIN Administration Protocol Aspirin 40.5 mg 05/06/20 09:00 05/10/20 08:27 Aspirin 81 Mg Chew PO 06/05/20 08:59 40.5 mg DAILY COLLIN Administration Atorvastatin Calcium 40 mg 05/05/20 21:00 05/09/20 20:57 Atorvastatin 40 Mg Tab PO 06/04/20 20:59 40 mg HS COLLIN Administration Buspirone HCl 15 mg 05/05/20 21:00 05/10/20 08:40 Buspirone 15 Mg Tab PO 06/04/20 20:59 Not Given BID COLLIN Dextrose 25 - 50 ml 05/05/20 19:29 05/07/20 06:28 Dextrose 50% 50 Ml Syringe IV 06/04/20 19:28 25 ml UD PRN Administration Hypoglycemia Protocol Protocol Docusate Sodium 100 mg 05/06/20 10:30 05/10/20 08:41 Docusate Sodium 100 Mg Cap PO 06/05/20 10:29 Not Given BID COLLIN Donepezil HCl 10 mg 05/06/20 09:00 05/10/20 08:40 Donepezil Hcl 10 Mg Tab PO 06/05/20 08:59 Not Given DAILY COLLIN Duloxetine HCl 60 mg 05/06/20 09:00 05/10/20 08:41 Duloxetine Hcl 60 Mg Cap PO 06/05/20 08:59 Not Given DAILY COLLIN Enalapril Maleate 10 mg 05/06/20 09:00 05/10/20 08:42 Enalapril Maleate 10 Mg Tab PO 06/05/20 08:59 Not Given DAILY COLLIN Protocol Finasteride 5 mg 05/06/20 09:00 05/10/20 08:42 Finasteride 5 Mg Tab PO 06/05/20 08:59 Not Given DAILY COLLIN Fluticasone Propionate 2 sprays 05/06/20 09:00 05/10/20 08:41 Fluticasone Propionate Na Spr 16 Gm Btl SHAY 06/05/20 08:59 Not Given DAILY COLLIN Fluticasone/Vilanterol 1 puffs 05/09/20 09:00 05/10/20 08:40 Fluticasone/Vilanterol 200/25mcg 14 Puffs/Inhaler INH 06/08/20 08:59 Not Given DAILY COLLIN Protocol Furosemide 20 mg 05/06/20 09:00 05/10/20 08:41 Furosemide 20 Mg Tab PO 06/05/20 08:59 Not Given DAILY COLLIN Gabapentin 600 mg 05/05/20 21:00 05/09/20 20:55 Gabapentin 300 Mg Cap PO 06/04/20 20:59 600 mg HS COLILN Administration Gabapentin 300 mg 05/06/20 08:00 05/10/20 11:02 Gabapentin 300 Mg Cap PO 06/05/20 07:59 Not Given TIDM COLLIN Insulin Aspart 0 units 05/10/20 06:00 05/10/20 13:48 Insulin Aspart 100 Units/Ml 3 Ml Pen SC 06/09/20 05:59 Not Given Q6 COLLIN Protocol Insulin Glargine 15 units 05/09/20 09:00 05/10/20 10:13 Insulin Glargine Solostar 100 Units/Ml 3 Ml Pen SC 06/08/20 08:59 15 units DAILY COLLIN Administration Lamotrigine 200 mg 05/05/20 21:00 05/09/20 20:56 Lamotrigine 100 Mg Tab PO 06/04/20 20:59 200 mg HS COLLIN Administration Lidocaine 1 patch 05/06/20 10:30 05/10/20 10:13 Lidocaine 5% 1 Patch TD 06/05/20 10:29 1 patch QAM COLLIN Administration Magnesium Hydroxide 30 ml 05/05/20 19:29 05/06/20 12:22 Magnesium Hydroxide Susp 30 Ml Udc PO 06/04/20 19:28 30 ml Q6H PRN Administration Constipation Memantine 5 mg 05/05/20 21:00 05/10/20 08:42 Memantine Hcl 5 Mg Tab PO 06/04/20 20:59 Not Given BID COLLIN Metoprolol Tartrate 12.5 mg 05/05/20 21:00 05/10/20 08:26 Metoprolol Tartrate 25 Mg Tab PO 06/04/20 20:59 12.5 mg BID COLLIN Administration Miscellaneous 15 - 30 gm 05/05/20 19:29 05/06/20 06:25 Carbohydrates For Hypoglycemia PO 06/04/20 19:28 15 gm UD PRN Administration Hypoglycemia Protocol Miscellaneous 1 ea 05/06/20 21:00 05/09/20 20:58 Remove Lidoderm Patch N/A 06/05/20 20:59 1 ea DAILY@2100 COLLIN Administration Polyethylene Glycol 17 gm 05/05/20 19:29 05/05/20 23:40 Polyethylene (Miralax) 17 Gm Pack PO 06/04/20 19:28 17 gm DAILY PRN Administration Constipation Prednisone 10 mg 05/10/20 09:00 05/10/20 08:42 Prednisone 10 Mg Tablet PO 06/09/20 08:59 Not Given DAILY COLLIN Tramadol HCl 50 mg 05/06/20 10:17 05/10/20 08:37 Tramadol Hcl 50 Mg Tablet PO 06/05/20 10:16 50 mg Q4H PRN Administration Pain Umeclidinium Nash 1 puffs 05/09/20 09:00 05/10/20 08:41 Umeclidinium Nash 62.5mcg/Blister 7 Puffs/Inhaler INH 06/08/20 08:59 Not Given QAM COLLIN NPO Date Last Intake of Fluids: 05/09/20 Time Last Intake of Fluids: 21:00 Date Last Intake of Solids: 05/09/20 Time Last Intake of Solids: 18:00 Past Medical History Medical History Aneurysm of ascending aorta Asthma with COPD Bicuspid aortic valve BPH (benign prostatic hyperplasia) CAD (coronary artery disease) Carotid artery stenosis CKD (chronic kidney disease) COPD (chronic obstructive pulmonary disease) Dementia HTN (hypertension), benign Hyperlipidemia Lumbar radiculopathy Myelodysplastic syndrome Myocardial infarction Pacemaker Placed after AVR due to complete heart block TIA (transient ischemic attack) Past Family History Family History Sister Anxiety Brother Alcohol abuse Father Cardiac disorder Myocardial infarction Mother Depression Kidney disease Lung disease Stroke Other Family history non-contributory Denies family history of Ovarian cancer Prostate cancer Breast cancer Colorectal cancer Past Surgical History Surgical History H/O cardiac catheterization H/O endoscopic retrograde cholangiopancreatography History of colonoscopy History of repair of rotator cuff History of tonsillectomy Hx of cholecystectomy S/P aortic valve replacement S/P coronary artery stent placement S/P right knee surgery Status post cardiac pacemaker procedure for h/o complete heart block s/p his AVR Social History Smoking Status: Former smoker tobacco type: cigarettes Smoking cigarettes per day: Random cigarette usage Do You Dip or Chew Tobacco: Yes Hx Alcohol Use: No Alcohol type: beer Hx Substance Use: No Physical Exam Vital Signs Last Vital Signs Temp 36.4 C L 05/10/20 13:09 Pulse 81 05/10/20 13:09 Resp 18 05/10/20 13:09 BP 117/76 05/10/20 13:09 Pulse Ox 96 05/10/20 13:09 Testing Laboratory Results 05/10/20 05:56 05/10/20 05:56 Hemoglobin A1c 7.6 % (4.5-5.6) H 05/06/20 05:30 Urine Color Yellow 05/05/20 16:45 Urine Appearance Clear (Clear) 05/05/20 16:45 Urine pH 5.0 (4.5-7.5) 05/05/20 16:45 Ur Specific [place] 1.014 (1.000-1.030) 05/05/20 16:45 Urine Protein Negative (Negative) 05/05/20 16:45 Urine Glucose (UA) Negative (Negative) 05/05/20 16:45 Urine Ketones Negative (Negative) 05/05/20 16:45 Urine Nitrite Negative (Negative) 05/05/20 16:45 Ur Leukocyte Esterase Negative (Negative) 05/05/20 16:45 Blood Type B Positive 05/10/20 05:52 Antibody Screen NEGATIVE 05/10/20 05:52 05/10/20 05/10/20 12:10 06:01 POC Glucose 147 H 120 H
[2020-05-10] MEDS ORDERED: ePHEDrine sulfate 50 MG/ML AMP IV PRN (14:32)
[2020-05-10] MEDS ORDERED: ONDANSETRON INJ 2 MG/ML 2 ML VIAL IV PRN ×2 (14:32→17:27)
[2020-05-10] MEDS ORDERED: HYDROmorphone INJ 2 MG/ML SYR/VIAL IV PRN (14:32)
[2020-05-10] MEDS ORDERED: PROMETHAZINE HCL 12.5 MG in SODIUM CHLORIDE 0.9% 50 ML IV PRN ×2 (14:32→17:27)
[2020-05-10] MEDS ORDERED: fentaNYL citrate 100 MCG/2 ML VIAL IV PRN (14:32)
[2020-05-10] MEDS ORDERED: ATROPINE SULFATE 0.1 MG/ML 10ML SYR IV PRN (14:32)
[2020-05-10] MEDS ORDERED: METOCLOPRAMIDE HCL INJ 5 MG/ML 2 ML VIAL IV PRN ×2 (14:32→17:27)
[2020-05-10] MEDS ORDERED: FLOSEAL HEMOSTATIC MATRIX 10ML TOP ONE (15:02)
--- NOTE | 2020-05-10 16:13 | Operative Report ---
Post Operative Report Pre & Post Diagnosis Operation Date: 05/10/20 12:55 Pre-Op Diagnosis: Lumbar spinal stenosis with herniated nucleus pulposus L2-3 L3-4 Post-Op Diagnosis: Same I identified the patient and participated in the time-out.: Yes Procedure Operation Date: 05/10/20 12:55 Actual Procedures Lumbar decompression with bilateral medial facetectomies and foraminotomies L2-3 L3-4 with removal of herniated free fragments from L2-3 Surgeon Shaheed Brown, Sewer Pipe Sorter Khanh Beck Estimated Blood Loss 100 Findings Consistent with Post-Op Diagnosis Specimens None Indications This is a 74-year-old male presents with severe onset of right anterior thigh pain and inability ambulate with progressive weakness. Subsequently we recommended urgent decompression. Description of Procedure Patient was met with identified informed consent obtained. Patient was then taken to the operative suite underwent an patient placed in a prone position the Lester table on top of the Chava frame. All bony prominences well-padded eyes inspected to ensure no external pressure placed upon up at this point the lumbar spine was prepped and draped in the normal sterile fashion. Sharp dissection with the assistance of Bovie cautery was performed down to and exposing the lamina and interlaminar spaces at L2-L3 and L4. And then performed a midline decompression removing the lamina of L2 and L3. This included bilateral medial facetectomies and foraminotomies addressing all stenosis. Identified massive amounts of free disc material on the right L3 nerve root extending from the shoulder to the axillary region. They removed in their entirety creating significant decompression. Incision was then copiously irrigated and and a 15 round NASEEM drain inserted. It was then closed with 1 Vicryl the fascia 2-0 Vicryl subcutaneously and 4 Monocryl for final skin closure. Steri-Strip sterile dressings placed. Patient waken taken to PACU stable condition. Please note Khanh acuna was present at the entire procedure involved in patient positioning complex portions of the surgery and final skin closure. I attest to the content of the Intraoperative Record and any orders documented therein. Any exceptions are noted below.
[2020-05-10] MEDS ORDERED: SUGAMMADEX SODIUM 200 MG/2 ML VIAL IV ONE (16:18)
--- NOTE | 2020-05-10 16:21 | Fluoroscopy Report ---
FL lumbar spine 2-3V CLINICAL HISTORY: L2-L3,L3-L4 DECOMP/FUSION COMPARISON STUDY: Lumbar spine CT 04/28/2020. FLUOROSCOPY TIME: 7 seconds. FINDINGS: 2 fluoroscopic spot images of the lumbar spine demonstrates surgical instruments posterior to the L2-L4 vertebral bodies for posterior decompression. IMPRESSION: Fluoroscopy provided for L2-L4 decompression. ACT 112: Negative or not required by law. Electronically signed by: Aldo Brooks M.D. 05/10/2020 4:20 PM
--- NOTE | 2020-05-10 16:24 | Hospitalist Progress Note ---
Date of Service May 10, 2020 Assessment & Plan (1) Lumbar radiculopathy: P/w intractable RLE radiculopathy, weakness x 2 weeks s/p fall in the shower. CT abd/pel with right paracentral HNP L3, mod-severe central canal stenosis L2-4 , seems consistent with pain and weakness on exam and by history -cannot get MRI due to pacer - CT lumbar spine showing severe multilevel degenerative disc disease and multilevel facet arthrosis. Severe central canal stenosis at L4, mod to severe central canal stenosis L2-L3, possible right paracentral disc herniation posterior to L3 vertebral body. -continue pain control -continue prednisone burst 40mg daily - discontinue and return to home dosing of 10 mg daily - does not appear that this is chronic dosing, rather a course provided by pcp for back pain. Will discontinue for tomorrow -continue home gabapentin 300 bid and 900 qhs -continue Cymbalta 60mg daily -PT/OT consults placed Ortho Spine consult placed - patient will require surgical decompression 05/10 (2) Aneurysm of ascending aorta: noted in history, follows with Cardio (3) Carotid artery stenosis: noted, follows with Cardio, carotid US periodically continue ASA, statin (4) Hyperlipidemia: continue statin (5) Asthma with COPD: not in exacerbation continue albuterol prn, added patient's home spiriva and symbicort that were not on his home list here (6) CAD in [place] artery: s/p 7 stents continue ASA continue statin, ACEi, BB (7) Diabetes mellitus type 2, controlled: A1c 7.6% Pharmacy glycemic consult for hypoglycemia this am ADA diet (8) History of TIA (transient ischemic attack): continue ASA, statin, BP control, diabetes control (9) Benign essential hypertension: BPs controlled continue lasix, ACEi, metoprolol - held lasix and PORTIA today for surgery and mild increase in creat (10) Myelodysplastic syndrome: stable, follow as outpt (11) PTSD (post-traumatic stress disorder): stable continue home lamictal, duloxetine, buspar (12) S/P aortic valve replacement with bioprosthetic valve: Porcine valve follows with [facility] continue ASA (13) Dementia: Mild cognitive impairment stable continue Aricept and Namenda (14) BPH (benign prostatic hyperplasia): no acute issues continue home finasteride (15) 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 Now recovered repeat COVID-19 test here now negative no precautions needed (17) Constipation: Resolved (18) Leukocytosis: Appears to be baseline - myelodysplastic syndrome as above (19) CKD (chronic kidney disease): Stage III With mild increase in creat today to 1.54 which is not outside range of hi storical values for patient. Held lasix and PORTIA for surgery this morning recheck prp am (20) DVT prophylaxis: SCDs Admission and Anticipated Discharge Date Admission Date: May 07, 2020 Subjective Patient is feeling well except for back pain and radiation to right leg. Looking forward to getting his surgery done. No cp or sob. ROS Constitutional: no chills, aches, sweats or fever Respiratory: no sob,cough, sputum, or wheezing Cardiac: no chest pain, palpitations, edema, orthopnea or lightheadedness GI: no abdominal pain, nausea, vomiting, diarrhea or constipation : no dysuria or hesitancy Extremities: no joint pain or weakness Skin: no rash All other systems reviewed and negative Physical Exam Physical Exam: General: no distress Eyes: normal inspection, PERLL Respiratory: chest non tender, clear to auscultation, normal breath sounds, no respiratory distress, no accessory muscle use Cardiac: regular rate and rhythm, no rub or gallop, no murmur, no edema, no jvd GI/: active bowel sounds, no abd pain or tenderness, soft, non distended Extremities: normal range of motion, normal strength, non tender Neuro/Psych: alert and oriented x 3, normal mood and affect Skin: normal color, dry Results & Data Results & Data ([facility]) Vital Signs (Past 12 Hours) Vital Signs Temp Pulse Resp BP Pulse Ox 05/10/20 13:09 36.4 C L 81 18 117/76 96 05/10/20 12:51 36.4 C L 81 16 115/68 94 05/10/20 07:59 36.4 C L 95 H 14 111/66 94 05/10/20 07:05 92 H 14 94 PG Care Time/CCT Total # of Minutes Spent Total Time Spent with Patient: Total time spent is greater than 50% in coordination of care (as documented) at patient's floor/unit and/or counseling patient: Coding Level of Care Code 04365 Subseq Hosp Care Lvl 2 Diagnoses Lumbar radiculopathy M54.16 Aneurysm of ascending aorta I71.2 Carotid artery stenosis I65.29 Hyperlipidemia E78.5 Asthma with COPD J44.9 CAD in [place] artery I25.10 Diabetes mellitus type 2, controlled E11.9 History of TIA (transient ischemic attack) Z86.73 Benign essential hypertension I10 Myelodysplastic syndrome D46.9 PTSD (post-traumatic stress disorder) F43.10 S/P aortic valve replacement with bioprosthetic valve Z95.3 Dementia F03.90 BPH (benign prostatic hyperplasia) N40.0 Pacemaker Z95.0 COVID-19 U07.1 Constipation K59.00 Leukocytosis D72.829 CKD (chronic kidney disease) N18.9 DVT prophylaxis Z29.9
--- NOTE | 2020-05-10 17:06 | Anesthesiology Progress Note ---
Date of Service May 10, 2020 Anesthesia Post Procedure Vital Signs Vital Signs: Temp Pulse Pulse Resp BP Pulse Ox 05/10/20 16:55 95 H 17 100/58 L 92 05/10/20 16:45 98 H 15 119/60 99 05/10/20 16:36 36.2 C L 90 16 120/66 100 05/10/20 13:09 36.4 C L 81 18 117/76 96 05/10/20 12:51 36.4 C L 81 16 115/68 94 05/10/20 07:59 36.4 C L 95 H 14 111/66 94 05/10/20 07:05 92 H 14 94 05/09/20 23:32 36.3 C L 99 H 14 97/64 L 95 05/09/20 20:53 96 H 104/68 95 Pain Intensity Right Leg: Pain Intensity: 10 Transfer of Care Handoff Completed per policy Notes Mental Status: alert / awake / arousable and participated in evaluation Patient Amnestic to Procedure: Yes Nausea / Vomiting: adequately controlled Pain: adequately controlled Airway Patency, RR, SpO2: stable & adequate BP & HR: stable & adequate Hydration State: stable & adequate Anesthetic Complications: no major complications apparent and Pt Satisfied with anesthetic care
[2020-05-10] MEDS ORDERED: bisacodyL 10 MG SUPP PR PRN (17:27)
[2020-05-10] MEDS ORDERED: NALOXONE HCL 0.4 MG/1 ML VIAL/CARP IV PRN (17:27)
[2020-05-10] MEDS ORDERED: HYDROmorphone INJ 1 MG/ML SYRINGE IV PRN (17:27)
[2020-05-10] MEDS ORDERED: ALUMINUM/MAGNESIUM SUSP 30 ML UDC PO PRN (17:27)
[2020-05-10] MEDS ORDERED: DO NOT ADMINISTER FLU VACCINE PRN (17:27)
[2020-05-10] MEDS ORDERED: ONDANSETRON 4 MG OD TAB PO PRN (17:27)
[2020-05-10] MEDS ORDERED: DO NOT ADMINISTER PNEUMOCOCCAL VACCINE PRN (17:27)
[2020-05-10] MEDS ORDERED: LORazepam 0.5 MG TAB PO PRN (17:27)
[2020-05-10] MEDS: SODIUM CHLORIDE 0.9% 1000ML 1,000 ML IV SCH (17:27)
[2020-05-10] MEDS ORDERED: LORazepam 0.5 MG/1 ML VIAL IV PRN (17:27)
[2020-05-10] MEDS ORDERED: FAMOTIDINE 20 MG TAB PO PRN (17:27)
[2020-05-10] MEDS ORDERED: ACETAMINOPHEN 1,000 MG/100 ML VIAL IV PRN (17:27)
[2020-05-10] MEDS ORDERED: diphenhydrAMINE Capsule 25 MG CAP PO PRN (17:27)
[2020-05-10] MEDS ORDERED: MAGNESIUM HYDROXIDE SUSP 30 ML UDC PO PRN (17:27)
[2020-05-10] MEDS ORDERED: ACETAMINOPHEN 500 MG TAB PO PRN (17:27)
[2020-05-10] MEDS ORDERED: HYDROmorphone INJ 0.5 MG/0.5 ML SYR IV PRN (17:27)
[2020-05-10] MEDS ORDERED: hydrOXYzine HCl 25 MG TAB PO PRN (17:27)
[2020-05-10] MEDS ORDERED: SOD PHOSPHATE/SOD BIPHOSPHATE ENEMA 132 ML BTL PR PRN (17:27)
[2020-05-10] MEDS: ATORVASTATIN 40 MG TAB PO SCH (21:01)
[2020-05-10] MEDS: lamoTRIgine 100 MG TAB PO SCH (21:01)
[2020-05-10] MEDS: DOCUSATE SODIUM/SENNA 50/8.6MG TAB PO SCH (21:02)
[2020-05-10] MEDS: CLINDAMYCIN 600 MG in DEXTROSE 5% 50 ML IV SCH (21:44)
[2020-05-11 05:49] LABS: Hematocrit (blood only) 34.7 % (42-52); Mean Corpuscular Hemoglobin 30.4 pg (25-34); Mean Corpuscular Hgb Conc 31.7 g/dL (32-36); Mean Corpuscular Volume 95.9 fL (80-100); Mean Platelet Volume 10.5 fL (7.4-10.4); Nucleated RBC # (auto) 0.05 K/uL (0-0); Nucleated RBC % (auto) 0.3 %; Platelet Count 316 K/uL (130-400); RDW Coefficient of Variation 20.6 % (11.5-14.5); RDW Standard Deviation 72.6 fL (36.4-46.3); Red Blood Count 3.62 M/uL (4.7-6.1); White Blood Count 17.69 K/uL (4.8-10.8)
[2020-05-11] MEDS ORDERED: POLYETHYLENE (MIRALAX) 17 GM PACK PO SCH (06:00)
[2020-05-11] MEDS: CLINDAMYCIN 600 MG in DEXTROSE 5% 50 ML IV SCH (06:11)
[2020-05-11] MEDS: traMADol HCL 50 MG TABLET PO PRN (06:14)
[2020-05-11 06:26] LABS: BUN Creatinine Ratio 33.5 (10-20); Calcium 8.4 mg/dl (8.5-10.1); Creatinine Clr Calc Pharmacy 48.4 ml/min; Est GFR (African American) 53.6; Est GFR (Non-African American) 46.3; Potassium 5.2 mmol/L (3.5-5.1)
[2020-05-11] MEDS: SODIUM CHLORIDE 0.9% 1000ML 1,000 ML IV SCH ×2 (07:17→13:43)
[2020-05-11] MEDS: ALBUTEROL HFA INHALER 8.5 GM INH SCH (07:21)
[2020-05-11] MEDS: METOPROLOL TARTRATE 25 MG TAB PO SCH ×2 (08:28→20:36)
[2020-05-11] MEDS: DULoxetine HCL 60 MG CAP PO SCH (08:28)
[2020-05-11] MEDS: FINASTERIDE 5 MG TAB PO SCH (08:29)
[2020-05-11] MEDS: DONEPEZIL HCL 10 MG TAB PO SCH (08:29)
[2020-05-11] MEDS: ENALAPRIL MALEATE 10 MG TAB PO SCH (08:29)
[2020-05-11] MEDS: FUROSEMIDE 20 MG TAB PO SCH (08:29)
[2020-05-11] MEDS: DOCUSATE SODIUM 100 MG CAP PO SCH ×2 (08:30→20:34)
[2020-05-11] MEDS: busPIRone 15 MG TAB PO SCH ×2 (08:30→20:33)
[2020-05-11] MEDS: MEMANTINE HCL 5 MG TAB PO SCH ×2 (08:30→20:37)
[2020-05-11] MEDS: ACETAMINOPHEN 500 MG TAB PO SCH ×3 (08:30→20:39)
[2020-05-11] MEDS: LIDOCAINE 5% 1 PATCH TD SCH (08:31)
[2020-05-11] MEDS: POLYETHYLENE (MIRALAX) 17 GM PACK PO PRN (08:31)
[2020-05-11] MEDS: FLUTICASONE/VILANTEROL 200/25MCG 14 PUFFS/INHALER INH SCH (08:32)
[2020-05-11] MEDS: UMECLIDINIUM BROMIDE 62.5MCG/BLISTER 7 PUFFS/INHALER INH SCH (08:32)
[2020-05-11] MEDS: FLUTICASONE PROPIONATE NA SPR 16 GM BTL NAE SCH (08:32)
[2020-05-11] MEDS: INSULIN GLARGINE SOLOSTAR 100 UNITS/ML 3 ML PEN SC SCH (08:33)
[2020-05-11] MEDS: INSULIN ASPART 100 UNITS/ML 3 ML PEN SC SCH ×4 (08:39→20:39)
[2020-05-11] MEDS: ASPIRIN 81 MG CHEW PO SCH (09:50)
[2020-05-11] MEDS: GABAPENTIN 300 MG CAP PO SCH ×4 (09:51→20:38)
--- NOTE | 2020-05-11 11:22 | Orthopedic Progress Note ---
Date of Service May 11, 2020 Assessment & Plan (1) Lumbar disc herniation: Admission and Anticipated Discharge Date Admission Date: May 07, 2020 We will begin physical therapy occupational therapy today monitor his NASEEM output hopefully discharge home Wednesday or Wednesday. Subjective Patient's leg pain is markedly improved. Back pain controlled. Physical Exam Physical Exam: On exam he is quite comfortable. Has marked improved strength testing. Results & Data ([facility]) Vital Signs (Past 12 Hours) Vital Signs Temp Pulse Pulse Resp BP BP Pulse Ox 05/11/20 07:21 83 16 96 05/11/20 07:16 36.6 C 75 16 117/67 96 05/11/20 04:00 36.6 C 78 18 105/65 94
[2020-05-11] MEDS ORDERED: INSULIN GLARGINE SOLOSTAR 100 UNITS/ML 3 ML PEN SC ONE (12:15)
--- NOTE | 2020-05-11 13:12 | Hospitalist Progress Note ---
Date of Service May 11, 2020 Assessment & Plan (1) Lumbar radiculopathy: s/p decompression surgery 05/10 P/w intractable RLE radiculopathy, weakness x 2 weeks s/p fall in the shower. -continue pain control -continue home gabapentin 300 bid and 900 qhs -continue Cymbalta 60mg daily -PT/OT consults placed (2) Aneurysm of ascending aorta: noted in history, follows with Cardio (3) Carotid artery stenosis: noted, follows with Cardio, carotid US periodically continue ASA, statin (4) Hyperlipidemia: continue statin (5) Asthma with COPD: not in exacerbation continue albuterol prn, added patient's home spiriva and symbicort that were not on his home list here (6) CAD in [place] artery: s/p 7 stents continue ASA continue statin, ACEi, BB (7) Diabetes mellitus type 2, controlled: A1c 7.6% Pharmacy glycemic consult ADA diet (8) History of TIA (transient ischemic attack): continue ASA, statin, BP control, diabetes control (9) Benign essential hypertension: BPs hypotensive, patient a bit lightheaded. Will give small 250 ml bolus. 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 Now recovered repeat COVID-19 test here now negative no precautions needed (17) Constipation: Resolved (18) Leukocytosis: Appears to be baseline - myelodysplastic syndrome as above (19) CKD (chronic kidney disease): Stage III - stable prp am (20) DVT prophylaxis: SCDs Admission and Anticipated Discharge Date Admission Date: May 07, 2020 Subjective Patient looks good today. Less back pain or leg pain. Some hypotension at times with a bit of lightheadedness. ROS Constitutional: no chills, aches, sweats or fever Respiratory: no sob,cough, sputum, or wheezing Cardiac: no chest pain, palpitations, edema, orthopnea GI: no abdominal pain, nausea, vomiting, diarrhea or constipation : no dysuria or hesitancy Extremities: no joint pain or weakness Skin: no rash All other systems reviewed and negative Physical Exam Physical Exam: General: no distress Eyes: normal inspection, PERLL Respiratory: chest non tender, clear to auscultation, normal breath sounds, no respiratory distress, no accessory muscle use Cardiac: regular rate and rhythm, no rub or gallop, no murmur, no edema, no jvd GI/: active bowel sounds, no abd pain or tenderness, soft, non distended Extremities: normal range of motion, normal strength, non tender Neuro/Psych: alert and oriented x 3, normal mood and affect Skin: normal color, dry Results & Data Results & Data ([facility]) Vital Signs (Past 12 Hours) Vital Signs Temp Pulse Pulse Resp BP BP Pulse Ox 05/11/20 11:00 36.4 C L 79 16 86/52 L 91/54 L 96 05/11/20 07:21 83 16 96 05/11/20 07:16 36.6 C 75 16 117/67 96 05/11/20 04:00 36.6 C 78 18 105/65 94 PG Care Time/CCT Total # of Minutes Spent Total Time Spent with Patient: Total time spent is greater than 50% in coordination of care (as documented) at patient's floor/unit and/or counseling patient: Coding Level of Care Code 99369 Subseq Hosp Care Lvl 2 Diagnoses Lumbar radiculopathy M54.16 Aneurysm of ascending aorta I71.2 Carotid artery stenosis I65.29 Hyperlipidemia E78.5 Asthma with COPD J44.9 CAD in [place] artery I25.10 Diabetes mellitus type 2, controlled E11.9 History of TIA (transient ischemic attack) Z86.73 Benign essential hypertension I10 Myelodysplastic syndrome D46.9 PTSD (post-traumatic stress disorder) F43.10 S/P aortic valve replacement with bioprosthetic valve Z95.3 Dementia F03.90 BPH (benign prostatic hyperplasia) N40.0 Pacemaker Z95.0 COVID-19 U07.1 Constipation K59.00 Leukocytosis D72.829 CKD (chronic kidney disease) N18.9 DVT prophylaxis Z29.9
[2020-05-11] MEDS ORDERED: SODIUM CHLORIDE 0.9% 1000ML 250 ML IV ONE (13:47)
--- NOTE | 2020-05-11 15:02 | Pharmacy Report ---
Pharmacy Glycemic Short Note 2 - Date of Service May 11, 2020 - Glycemic Short BSG Results (Last 24 hours): 05/10/20 05/10/20 05/11/20 16:46 20:58 05:29 Glucose 133 H POC Glucose 202 H 234 H 05/11/20 05/11/20 08:03 11:49 Glucose POC Glucose 144 H 221 H OUTPATIENT ANTIDIABETIC REGIMEN: * Lantus 30 units SQ BID * Alogliptin 12.5mg PO QAM * Glimepiride 4mg BID * A1c = 7.6% on 05/06/20 ASSESSMENT: 05/11: * Chencho received 32 units of insulin yesterday * 15 units of basal and 17 units of bolus * Patient was NPO during this time * POD #1 s/p lumbar decompression. Prednisone has been discontinued. * Fasting BSG of 144 mg/dL is above goal. Fasting BSG has been trending upward the past 3 days. Lunch BSG is also elevated. I will give an additional 10 units of Lantus with lunch and reassess tomorrow. * Tighten carb coverage for post prandial hyperglycemia 05/10: * Pt has received 84 units of insulin over the past 24hrs * 45 units of basal with NPH + Lantus * 39 units of bolus with NovoLog * BSGs [phone] mg/dl * Steroids tapered from prednisone 40mg daily down to 10mg daily (outpatient dosing). This should yield a significant improvement in hyperglycemia. Lower total daily insulin dose will be needed today * Pt is NPO today for lumbar decompression. Will adjust insulin dosing accordingly for NPO. * Goal is to maintain BSGs <200 mg/dl (ideally <150 mg/dl) to prevent post op complications PLAN FOR INPATIENT GLYCEMIC CONTROL: * Hold outpatient oral diabetes medications * Basal insulin * Lantus 15 units SQ this AM + 10 units with lunch * Reassess dose on 05/12 * Bolus insulin: tighten carb coverage * NovoLog per scale ACHS or Q6hrs while NPO * Goal Range: Low 110 mg/dL - High 140 mg/dL * Correction Factor: 15 mg/dL/unit * Nutritional / Prandial insulin per carb ratio of 1 unit per 4 grams CHO consumed PLAN FOR DISCHARGE: * A1c = 7.6% on 05/06/20 * Goal A1c < 7% based on age/co-morbidities * No changes needed to outpatient regimen at dc. Could consider maximizing alogliptin dosing for tighter outpatient control
[2020-05-11] MEDS: lamoTRIgine 100 MG TAB PO SCH (20:34)
[2020-05-11] MEDS: ATORVASTATIN 40 MG TAB PO SCH (20:35)
[2020-05-11] MEDS: DOCUSATE SODIUM/SENNA 50/8.6MG TAB PO SCH (20:38)
[2020-05-12] MEDS: SODIUM CHLORIDE 0.9% 1000ML 1,000 ML IV SCH (00:03)
[2020-05-12 06:14] LABS: Hematocrit (blood only) 31.8 % (42-52); Hemoglobin 10.4 g/dL (14.0-18.0); Mean Corpuscular Hemoglobin 31.5 pg (25-34); Mean Corpuscular Hgb Conc 32.7 g/dL (32-36); Mean Corpuscular Volume 96.4 fL (80-100); Platelet Count 282 K/uL (130-400); RDW Coefficient of Variation 20.8 % (11.5-14.5); RDW Standard Deviation 73.6 fL (36.4-46.3); White Blood Count 18.39 K/uL (4.8-10.8)
[2020-05-12] MEDS: ALBUTEROL HFA INHALER 8.5 GM INH SCH (07:13)
[2020-05-12] MEDS: LIDOCAINE 5% 1 PATCH TD SCH (07:51)
[2020-05-12] MEDS: METOPROLOL TARTRATE 25 MG TAB PO SCH (07:54)
[2020-05-12] MEDS: ASPIRIN 81 MG CHEW PO SCH (07:55)
[2020-05-12] MEDS: DOCUSATE SODIUM 100 MG CAP PO SCH (07:55)
[2020-05-12] MEDS: busPIRone 15 MG TAB PO SCH (07:55)
[2020-05-12] MEDS: MEMANTINE HCL 5 MG TAB PO SCH (07:55)
[2020-05-12] MEDS: DONEPEZIL HCL 10 MG TAB PO SCH (07:57)
[2020-05-12] MEDS: GABAPENTIN 300 MG CAP PO SCH (07:57)
[2020-05-12] MEDS: ACETAMINOPHEN 500 MG TAB PO SCH (07:58)
[2020-05-12] MEDS: FINASTERIDE 5 MG TAB PO SCH (07:58)
[2020-05-12] MEDS: FLUTICASONE PROPIONATE NA SPR 16 GM BTL NAE SCH (07:59)
[2020-05-12] MEDS: DULoxetine HCL 60 MG CAP PO SCH (08:00)
[2020-05-12] MEDS: FLUTICASONE/VILANTEROL 200/25MCG 14 PUFFS/INHALER INH SCH (08:02)
[2020-05-12] MEDS: UMECLIDINIUM BROMIDE 62.5MCG/BLISTER 7 PUFFS/INHALER INH SCH (08:03)
[2020-05-12] MEDS: INSULIN GLARGINE SOLOSTAR 100 UNITS/ML 3 ML PEN SC SCH (08:06)
[2020-05-12] MEDS: INSULIN ASPART 100 UNITS/ML 3 ML PEN SC SCH (08:08)
[2020-05-12] MEDS ORDERED: INSULIN GLARGINE SOLOSTAR 100 UNITS/ML 3 ML PEN SC SCH ×2 (09:00)
--- NOTE | 2020-05-12 09:01 | Orthopedic Progress Note ---
Date of Service May 12, 2020 Assessment & Plan (1) Intractable low back pain: Patient is doing well postop day #2. Overall he is made significant gains. His strength is improved and he is able to walk on his own. From an orthopedic perspective he is safe to discharged home. I have reviewed his discharge instructions as well as restrictions. If cleared by medicine he should be discharged today. He will follow-up with our office approximately 2 weeks out from surgery and he needs to call the office to make arrangements for that. Admission and Anticipated Discharge Date Admission Date: May 07, 2020 Subjective Patient seen bedside in room 352. He states he is doing very well at this point. Is been up and walking. He is not having any radicular complaints. He has mild soreness in the back. He denies any other numbness, tingling, paresthesias. Physical Exam Physical Exam: On exam he is alert and oriented. His lower extremity motor exam reveals no focal atrophy strength and sensation are grossly intact his dressings clean dry and intact. His abdomen soft nontender his calves are supple nontender. Results & Data ([facility]) Vital Signs (Past 12 Hours) Vital Signs Temp Pulse Pulse Resp BP BP Pulse Ox 05/12/20 07:13 80 16 91 05/12/20 07:07 36.9 C 90 16 92/53 L 94 05/11/20 23:20 36.6 C 80 18 104/62 99
[2020-05-12 09:51] LABS: BUN Creatinine Ratio 32.3 (10-20); Est GFR (African American) 63.9; Est GFR (Non-African American) 55.2; Potassium 4.9 mmol/L (3.5-5.1)
[2020-05-12] MEDS ORDERED: INSULIN GLARGINE SOLOSTAR 100 UNITS/ML 3 ML PEN SC ONE (10:15)
--- NOTE | 2020-05-12 10:40 | Discharge Summary ---
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 Due to his MCI, he is a bit off on his timeline but chart reviewed and I also spoke with his on the phone for more history. He reports he fell in the shower about 2 weeks ago and landed on his right side and tailbone. He had no pain x 4 days and then developed right groin pain. This went away and then he developed fairly severe right knee pain and then right lateral hip pain. Now he has pain from the hip down the lateral thigh to the knee all the time, worse with any slight movement and worse with standing or sitting. Pain is best if he is lying flat and still. No numbness/tingling/weakness of RLE. No lower back pain. No bowel or bladder incontinence. He was seen by his PCP who ordered plain films which were negative for fracture of the knee and hip on 05/02. He was started on a prednisone burst but continued to have severe pain, prompting him to come to the ER. Here, he had CT abd/pel with attn to the spine and was found to have nothing acute in abd/pel, but found to have mod-severe central canal stenosis at L2-4 and possible right paracentral HNP at L3 level. Unfortunately, he cannot have an MRI due to his pacemaker as it was confirmed in Cardiology notes to be Non-MRI compatible. He will be admitted for intractable pain secondary to lumbar radiculopathy and for further evaluation by Ortho SPine. Principal Diagnosis Lumbar back pain Discharge Exam Constitutional WD/WN, vitals as above Respiratory normal respiratory effort, lungs clear to auscultation Cardiovascular RRR, no murmur, no edema Gastrointestinal (Abdomen) normal bowel sounds, soft, nontender, no hepatosplenomegaly Musculoskeletal no cyanosis or clubbing, extremities motor strength 5/5 Skin no rashes, warm and dry Neurologic moves all extremities and awake Psychiatric A+Ox3, euthymic affect Discharge Data Allergies Allergy/AdvReac Type Severity Reaction Status Date / Time bee venom protein (honey bee) Allergy Unknown SWELLING Verified 05/05/20 13:38 codeine Allergy Unknown HALLUCINATI Verified 05/05/20 13:38 NG Penicillins Allergy Unknown UNKNOWN Verified 05/05/20 13:38 Sulfa (Sulfonamide Allergy Unknown "SULFA": Verified 05/05/20 13:38 Antibiotics) RASH Consultations 05/05/20 15:13 ED Decision to Admit Stat 05/05/20 19:29 Consult Case Management - Discharge Planning Routine Consult Orthopedic Surgery Routine 05/06/20 11:23 Consult Cardiology Routine Procedures Performed Operation Date: 05/10/20 12:55 Actual Procedures p L2-L3, L3-L4 Decompression(Not Applicable) - Shaheed Brown DO Ordered Studies 05/05/20 12:57 CT abd pelvis wo con Stat 05/06/20 07:48 CT lumbar spine wo con Routine 05/10/20 12:55 FL fluoroscopy <1hr Routine FL lumbar spine 2-3V Routine Hospital Course (1) Lumbar radiculopathy: s/p decompression surgery 05/10 P/w intractable RLE radiculopathy, weakness x 2 weeks s/p fall in the shower. -continue pain control -continue home gabapentin 300 bid and 900 qhs -continue Cymbalta 60mg daily -PT/OT consults placed - recommend return home - doing well, pain is improved. (2) Aneurysm of ascending aorta: noted in history, follows with Cardio (3) Carotid artery stenosis: noted, follows with Cardio, carotid US periodically continue ASA, statin (4) Hyperlipidemia: continue statin (5) Asthma with COPD: not in exacerbation continue albuterol prn, added patient's home spiriva and symbicort that were not on his home list here (6) CAD in [place] artery: s/p 7 stents continue ASA continue statin, ACEi, BB (7) Diabetes mellitus type 2, controlled: A1c 7.6% Pharmacy glycemic consult ADA diet (8) History of TIA (transient ischemic attack): continue ASA, statin, BP control, diabetes control (9) Benign essential hypertension: Hypotension improving, no further light headedness. Held BP meds for today (10) Myelodysplastic syndrome: stable, follow as outpt (11) PTSD (post-traumatic stress disorder): stable continue home lamictal, duloxetine, buspar (12) S/P aortic valve replacement with bioprosthetic valve: Porcine valve follows with [facility] continue ASA (13) Dementia: Mild cognitive impairment stable continue Aricept and Namenda (14) BPH (benign prostatic hyperplasia): no acute issues continue home finasteride (15) 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 Now recovered repeat COVID-19 test here now negative no precautions needed (17) Constipation: Resolved (18) Leukocytosis: Appears to be baseline - myelodysplastic syndrome as above (19) CKD (chronic kidney disease): Stage III - stable prp am (20) DVT prophylaxis: SCDs Total Time Total Time Spent Total Time Spent (In Minutes): greater than 30 minutes Discharge Plan Discharge Items Patient Disposition: Home - Self-Care Reason For Visit: INTRACTABLE PAIN,LUMBAR RADICULOPATHY Discharge Diagnosis: Spinal stenosis Activity: Resume your previous activity Driving/Machine Use: do not drive while taking tramadol Non-emergency contact: Primary Care Provider Call non-emergency contact if: your pain is not controlled Follow-up/Referrals: Leandro Rodrigues MD [Primary Care Provider] - (A [facility] Manager Gyn will phone you to inform you of your upcoming appointment to see Dr. Gillian Rodrigues. please schedule appt for this week) Diet: Regular Addtl Attending Provider Instructions: ACTIVITY RECOMMENDATIONS: SELF CARE INSTRUCTIONS AFTER THORACIC/LUMBAR FUSIONS 1. You may walk to your tolerance. It is good exercise for your legs and back. Expect some back and intermittent leg aches and pains. 2. You may perform "counter-top" level activities (make a sandwich, anderson with a project, etc.). 3. No bending or lifting of more than 10 pounds or back twisting of any nature (roll like a log when turning in bed). 4. You may ride in a car for 20-30 minutes at a time. No driving until after your first visit with your doctor. 5. Frequent changes of position and restricting sitting to 30 minutes at a time will help limit the amount of back spasms and stiffness you may experience. 6. You may discontinue the use of ambulatory aids (cane, crutches, etc.) once your strength and confidence allow. 7. You may bluing oven tender the shower and let water strike your incision when you arrive home at least once daily. Do not take a tub bath, sit in a hot tub or go into a swimming pool until after your first recheck in the office. SPECIAL CARE INSTRUCTIONS: VERY IMPORTANT TO READ AND REVIEW A. Your surgical incision has been closed with a cosmetic suture under the skin that will dissolve in about 6 weeks. In 14 days, you can use a pair of clean scissors and cut the suture that is left outside of the skin at the ends of your incision. 1. The small skin tapes can be removed 7 days after surgery if they have not fallen off by that point. 2. You may keep the wound open to air as much as possible to promote healing after post-op day number 5 unless told otherwise by your doctor. 3. If you think the wound looks like it is becoming infected (redness or worsening drainage) and/or you are experiencing fever, chill or worsening back pain and muscle spasms, contact the office so that we may evaluate you as soon as possible. B. Complications are uncommon, but please contact us if you have any signs or symptoms of: 1. wound infection (fever higher than 102.5 degrees F, redness, separation of wound, drainage, or increasing pain from the incision) 2. blood clots in legs (pain, swelling, redness and warmth in legs) 3. urinary tract infection (fever higher than 102.5 degrees F, burning upon urination or increased frequency of urination) 4. nerve problems (inability to walk on your toes or heels, numbness, loss of bowel or bladder control) 5. any other symptoms that concern you C. Please call the office at if you have any concerns or questions about your operation or recovery. D. No smoking! Smoking drastically decreases the chance of a solid fusion. E. Do not take any anti-inflammatory medications (Indocin, Advil, Motrin, Aspirin, Naprosyn, etc.) as these may inhibit the chance of a solid fusion. Tylenol is okay to take for pain. MANAGING PAIN AFTER SPINAL SURGERY 1. Narcotic medication is intended for short-term use and will be provided for surgical pain. Surgical pain usually lasts for a period of 4-6 weeks. Narcotic medication includes Percocet, Vicodin, Darvocet, Tylenol #3 or Lortab. 2. Longer-term pain is more appropriately treated with non-narcotic medication such as Tylenol ES. 3. Muscle spasm is not appropriately treated with narcotics. Muscle relaxers such as Soma, Flexeril or Skelaxin can be used along with Tylenol ES. 4. Remember that we all live with some "aches and pains". This is not unusual or uncommon after an injury or as we get older. a. Back pain is expected and may include muscle spasms for 4 to 6 weeks after surgery. The pain should gradually improve. If the pain worsens for no apparent reason, please contact the office. b. Intermittent leg pain may also be experienced and should not be concerned about unless it worsens for no apparent reason. If so, please contact the office. 5. We will provide appropriate medication within the normal guidelines of their prescribed use. We will also be very cautious and aware of potential abuse and extended duration of patients' medication needs. a. Pain medications are for your comfort and to assist with sleep and rest so that the tissue can heal. They are not provided in order to return to normal activity and should not be used through the day. To do so or worsening pain at night can result from ongoing tissue damage and development of tolerance to the prescribed medicine. 6. Please allow 2-3 days to process refills. Prescriptions will not be mailed but must be picked up at the office. FOLLOW UP VISIT: Keep your scheduled follow-up appointment. Any questions, please call the office at . Addtl Associate Teacher Provider Instructions: Medications: - BENAZEPRIL: continue to HOLD this medication due to blood pressures being low normal - LASIX: continue to HOLD this medication as your blood pressure is low normal - METOPROLOL: it is safe to continue this medication please see Dr. Rodrigues this week in office for blood pressure check, determine if you can resume benazepril and Lasix Pending Studies at Discharge: No Stand-Alone Forms: My [facility] [employer] Smoking Cessation Medications and DC Order Prescriptions: New tramadol [Ultram] 50 mg tablet 50 mg PO Q4H PRN (Reason: pain) Qty: 20 RF: 0 Continued glimepiride 4 mg tablet 4 mg PO BID Qty: 180 RF: 1 mupirocin 2 % ointment 1 appln TOP BID Qty: 15 RF: 1 Lantus Solostar U-100 Insulin 100 unit/mL (3 mL) insulin pen 30 units SUBCUT BID RF: 0 prednisone 10 mg tablet 10 mg PO DAILY Qty: 21 RF: 0 acetaminophen [Tylenol Extra Strength] 500 mg Tablet 1,000 mg PO TID PRN (Reason: Pain) RF: 0 ciprofloxacin HCl [Cipro] 500 mg Tablet 500 mg PO BID RF: 0 alogliptin 12.5 mg tablet 12.5 mg PO QAM RF: 0 fluticasone propionate [Flonase Allergy Relief] 50 mcg/actuation [place],Suspension 2 spray INTRANASAL DAILY RF: 0 gabapentin 300 mg Capsule 600 mg PO HS RF: 0 albuterol sulfate [ProAir HFA] 90 mcg/actuation HFA aerosol inhaler 2 puffs INH Q4H PRN (Reason: shortness of breath or wheezing) RF: 0 buspirone 15 mg Tablet 15 mg PO BID RF: 0 finasteride 5 mg Tablet 5 mg PO DAILY RF: 0 epinephrine [EpiPen] 0.3 mg/0.3 mL Auto-Injector 0.3 mg IM Q3H PRN (Reason: Allergy Symptoms) RF: 0 metoprolol tartrate 25 mg Tablet 12.5 mg PO BID RF: 0 gabapentin 300 mg Capsule 300 mg PO TID RF: 0 duloxetine 60 mg Capsule,Delayed Release(Dr/Ec) 60 mg PO DAILY RF: 0 lamotrigine 200 mg Tablet 200 mg PO HS RF: 0 hydrocortisone 2.5 % Ointment 1 applic TOPICAL HS PRN (Reason: Itching) RF: 0 atorvastatin [Lipitor] 40 mg Tablet 40 mg PO HS RF: 0 donepezil 10 mg Tablet 10 mg PO DAILY RF: 0 memantine 5 mg Tablet 5 mg PO BID RF: 0 aspirin 81 mg tablet,delayed release (DR/EC) 40.5 mg PO DAILY RF: 0 nitroglycerin [Nitrostat] 0.4 mg tablet, sublingual 0.4 mg Sublingual DIRECTED PRN (Reason: Chest Pain) RF: 0 Discontinued benazepril [Lotensin] 10 mg Tablet 10 mg PO DAILY RF: 0 furosemide [Lasix] 20 mg Tablet 20 mg PO DAILY RF: 0 Discharge Orders: Discharge Order (Routine); Ordered 05/12/20 Ordered By: Khanh Lezama/Other Patient Handouts: Managing Type 2 Diabetes Admission Data Admit Date/Time: 05/07/20 14:36 Attending Provider: Fred Fritz Admit Provider: Zoë Pleitez Primary Care Provider: Leandro Rodrigues Other Providers: Zoë Pleitez ; Shaheed Brown ; Raymundo Saba. Other Interventions: Discharge Summary Assessment (RN) Last Done: 05/12/20 10:46 Supervising Physician Co-Signing Physician Notes Patient seen and examined on the day of discharge. I agree with the discharge summary by Deneen ADEN. I have reviewed the chart including labs, imaging and plans for discharge. patient doing great after spine surgery, pain is controlled with just ultram, he is eating well, no chest pain, no dyspnea BP running low normal, discussed with RN, she held his BP medications cleared for discharge by Dr. Brown - s/p lumbar surgery: doing great, discharge to home, pain control with Ultram post op instructions provided by ortho spine service he will follow up with Dr Brown or his PA in the office - HTN, now with pressures that are low normal instructed to continue his metoprolol 12.5mg BID hold his Lotensin and Lasix until he is seen in the office by his PCP recommend getting follow up with Dr. Rodrigues this week he is not light headed, he feels great Coding Level of Care Code D/C Day Management >30 mins Diagnoses Lumbar radiculopathy M54.16 Aneurysm of ascending aorta I71.2 Carotid artery stenosis I65.29 Hyperlipidemia E78.5 Asthma with COPD J44.9 CAD in [place] artery I25.10 Diabetes mellitus type 2, controlled E11.9 History of TIA (transient ischemic attack) Z86.73 Benign essential hypertension I10 Myelodysplastic syndrome D46.9 PTSD (post-traumatic stress disorder) F43.10 S/P aortic valve replacement with bioprosthetic valve Z95.3 Dementia F03.90 BPH (benign prostatic hyperplasia) N40.0 Pacemaker Z95.0 COVID-19 U07.1 Constipation K59.00 Leukocytosis D72.829 CKD (chronic kidney disease) N18.9 DVT prophylaxis Z29.9
[2020-05-12] MEDS: traMADol HCL 50 MG TABLET PO PRN (11:55)
--- NOTE | 2021-02-05 08:50 | Coding Query ---
CODING QUERY To promote full compliance with coding requirements relating to patient care, provider participation is requested in all cases of hospital coder uncertainty. Please assist us with the question(s) below: Coding Question(s): The H&P and attending physician's Progress Notes document, "Lumbar radiculopathy: P/w intractable RLE radiculopathy, weakness x 2 weeks s/p fall in the shower. CT abd/pel with right paracentral HNP L3, mod-severe central canal stenosis L2-4 , seems consistent with pain and weakness on exam and by history", and the Orthopedic Progress Note on 05/06/21 documents, "Lumbar radiculopathy: Admission and Anticipated Discharge Date Admission Date: May 05, 2020 I discussion today with this patient and his reviewing his CAT scans findings and clinical presentation. He could continue considered observation epidural injections or ultimately surgical intervention. Surgery would require a lumbar decompression at L2-3 L3-4 with removal of herniated disc fragments. I think we can avoid a fusion. He obviously has significant medical history to contend with. We await input from both medicine and cardiology regarding his candidacy for surgery", and, "Patient complains of significant right leg pain and inability to ambulate secondary to pain. He states this began over a week ago. He denies any specific trauma fall or event" and the Operative Report documents, "Lumbar spinal stenosis with herniated nucleus pulposus L2-3 L3-4". It is not clear if the Herniated Nucleus Pulposus L2-3 L3-4 is due to trauma or not. Please specify below, in your clinical opinion, regarding the Lumbar Herniated Nucleus Pulposus. ( ) likely due to Trauma ( x ) Not likely due to Trauma ( ) Other: Please Specify Physician's Response(s): Thank you Sharyn Chan Principal Diagnosis: "that condition established after study, to be chiefly responsible for occasioning the admission of the patient to the hospital for care." Co-Existing Principal Diagnosis: "when two or more diagnoses equally meet the criteria for principal diagnosis as determined by the circumstances of admission, diagnostic work up, and/or therapy provided, and the Alphabetic Index, Tabular List, or another coding guideline does not provide sequencing direction, any one of the diagnoses may be sequenced first." "When the physician has documented what appears to be a current diagnosis in the body of the record, but has not included the diagnosis in the final diagnostic statement, the physician should be asked whether the diagnosis should be added." (Source Coding [facility] 2 QTR90. p3-4) CHEIKH
== END 2020-05-12 11:57 | disposition home or self-care (01) | DRG 516 ==
LOC: 3W 12:12 → ED 12:12 → OBSVTOIN 17:11 → SUATTDRO 17:11 → 3W 19:11

== ENCOUNTER 2020-07-23 10:43 | Inpatient (IN) ==
[2020-07-23] MEDS ORDERED: PANTOprazole 40 MG in SYRINGE 0 ML IV ONE (10:48)
[2020-07-23] MEDS ORDERED: MoRPHine SULFATE 4 MG/ML 1 ML CARP\\VIAL IV PRN (10:48)
[2020-07-23] MEDS ORDERED: ONDANSETRON INJ 2 MG/ML 2 ML VIAL IV STA (10:48)
--- NOTE | 2020-07-23 10:54 | Emergency Department Note ---
Impression & Plan Acute low back pain with sciatica ED Provider Note NAME: PAXTON CHI JR AGE: 75 SEX: M : 1945 ARRIVES VIA: Ambulance INFORMANT: Patient, ED PROVIDER(S): Donato Kerns DO CHIEF COMPLAINT: Sciatica HPI: The patient is a 75-year-old male who presented to the emergency department by ambulance for an evaluation of sciatica. The patient has a history of lumbar spine disease. He had surgery in May. He states that recently he has been noticing pain in his right lower back into his right hip and down to his right f oot. He was seen in our emergency department this weekend for similar complaints. The patient was treated with pain medication as well as a dose of steroids. He is scheduled to see his primary orthopedic spinal specialist but was unable to ambulate at all. Over the last 24 hours the patient had very severe pain worsened with any ambulation. He lives at home with his significant other and was concerned that he would not be able to ambulate and came into the emergency department by ambulance because of worsening pain. He notices no fever or cough. He notices no nausea or vomiting. He does complain of some tingling into the right foot. He states any movement or ambulation does worsen the pain. He did try taking his prescription pain medication that was given to him over the weekend without significant relief. ROS: See above HPI for pertinent positives & negatives. A total of 10 systems reviewed and were otherwise negative. PAST MEDICAL HISTORY: See Below PAST SURGICAL HISTORY: See Below FAMILY HISTORY: See Below SOCIAL HISTORY: See Below HOME MEDICATIONS: See Below ALLERGIES: See Below VITALS: See Below PHYSICAL EXAMINATION: GENERAL: The patient is awake and alert. He is very anxious appearing appears to be in significant pain. EYES: The conjunctivae are clear. The pupils are round and reactive. EARS, NOSE, MOUTH AND THROAT: The nose is without any evidence of any deformity. Mucous membranes are moist. Tongue is midline. NECK: The neck is nontender and supple. RESPIRATORY: Normal respiratory effort is noted there is no evidence of wheezing rhonchi or rales CARDIOVASCULAR: Regular rate and rhythm noted there no murmurs rubs or gallops normal S1 normal S2. GASTROINTESTINAL: The abdomen is soft. Abdomen is nontender. BACK: The postoperative site was noted. There is no erythema swelling or bogginess noted. Patient does not have significant worsening of right hip pain with back range of motion testing. MUSCULOSKELETAL/EXTREMITIES: Straight leg raise was positive on the right lower extremity. SKIN: There is no obvious evidence of any rash. There are no petechiae, pallor or cyanosis noted. NEUROLOGIC: Patient is awake alert and oriented x3 strength is symmetric patellar reflexes are 2+ bilaterally MEDICAL DECISION MAKING: The patient is a 75-year-old male who is 2 months status post lumbar spine surgery. The patient had a very large disc herniation. The patient has been noticing worsening symptoms especially to the right leg over the last few days. He was treated in our facility this weekend for similar complaints and was feeling much better. The patient returns to the emergency department today with worsening pain. He was treated with IV pain medication and IV steroids. He was very concerned that he would not be able to manage at home because of the degree of pain he has been having. I discussed the patient's condition with his primary orthopedic surgeon. He does recommend inpatient management for the patient's pain as well as further evaluation as an inpatient to determine if further radiographic studies are indicated. [facility] will evaluate the patient in the emergency department for further management and disposition. Triage Nursing notes reviewed. Prior medical records reviewed Vital Signs: reviewed and remarkable for no significant abnormalities Differential diagnosis: Musculoskeletal, disc herniation, fracture, metastatic disease, cord compression, discitis, sciatica, cauda equina, infection, aortic disease, renal colic, gastrointestinal, as well as other pathologies. ER treatment provided: See below Diagnostics interpreted by me: ECG: none Cardiac Monitoring: An order was placed for continuous cardiac monitoring. The monitor shows a rate of 85 bpm with sinus rhythm. Laboratory studies: As stated above and show below. Imaging studies: See below Consultation(s): 1110: I discussed this case with Dr. Brown. 1255: I discussed this case with Huseyin Barrientos PA-C who [facility]. Past Med/Surg History Medical History Aneurysm of ascending aorta Asthma with COPD Bicuspid aortic valve BPH (benign prostatic hyperplasia) CAD (coronary artery disease) Carotid artery stenosis CKD (chronic kidney disease) COPD (chronic obstructive pulmonary disease) Dementia HTN (hypertension), benign Hyperlipidemia Lumbar radiculopathy Myelodysplastic syndrome Myocardial infarction Pacemaker Placed after AVR due to complete heart block TIA (transient ischemic attack) Surgical History H/O cardiac catheterization H/O endoscopic retrograde cholangiopancreatography History of back surgery 05/14/2020 History of colonoscopy History of repair of rotator cuff History of tonsillectomy Hx of cholecystectomy S/P aortic valve replacement S/P coronary artery stent placement S/P right knee surgery Status post cardiac pacemaker procedure for h/o complete heart block s/p his AVR Family History Sister Anxiety Brother Alcohol abuse Father Cardiac disorder Myocardial infarction Mother Depression Kidney disease Lung disease Stroke Other Family history non-contributory Denies family history of Ovarian cancer Prostate cancer Breast cancer Colorectal cancer Social History Smoking Status: Never smoker Tobacco Type: Cigarettes Age Quit Using Tobacco: 64; Cigarettes Per Day: Random cigarette usage; Second Hand Exposure: No; Hx Alcohol Use: No Hx Substance Use: No Preferred Language: Kinyarwanda Communication Ability: Effective Visual Impairment: No Limitations Hearing Ability: Use of Hearing Aid Wire Wheeler Required: No Beliefs That Will Affect Care: None marital status: Current Living Situation: Spouse Current Living Situation Comment: House Feels Safe at Home: Yes Childhood Exposure to Second-Hand Smoke: Yes Seatbelt Use: always Sunscreen Use: Yes Assistive Devices: None Allergies Allergies Allergy/AdvReac Type Severity Reaction Status Date / Time bee venom protein (honey bee) Allergy Severe SWELLING Verified 07/23/20 12:39 Sulfa (Sulfonamide Allergy Intermediate "SULFA": Verified 07/23/20 12:39 Antibiotics) RASH Penicillins Allergy Unknown UNKNOWN Verified 07/23/20 12:39 codeine AdvReac Intermediate HALLUCINATI Verified 07/23/20 12:39 NG Home Meds Home Medications Medication Instructions Recorded Confirmed epinephrine [EpiPen] 0.3 mg IM Q3H PRN 10/21/18 07/23/20 finasteride 5 mg PO QAM 10/21/18 07/23/20 metoprolol tartrate 12.5 mg PO BID 10/21/18 07/23/20 atorvastatin [Lipitor] 40 mg PO HS 10/22/18 07/23/20 donepezil 10 mg PO QAM 10/22/18 07/23/20 duloxetine 60 mg PO QAM 10/22/18 07/23/20 gabapentin 300 mg PO QID 10/22/18 07/23/20 hydrocortisone 1 applic TOPICAL HS PRN 10/22/18 07/23/20 lamotrigine 200 mg PO HS 10/22/18 07/23/20 memantine 5 mg PO BID 10/22/18 07/23/20 aspirin 81 mg tablet,delayed 40.5 mg PO QAM tab 04/03/19 07/23/20 release nitroglycerin 0.4 mg sublingual 0.4 mg SUBLINGUAL DIRECTED PRN 04/03/19 07/23/20 tablet insulin glargine 100 unit/mL (3 30 units SUBCUT BID ml 07/25/19 07/23/20 mL) subcutaneous pen acetaminophen [Tylenol Extra 1,000 mg PO TID PRN 03/18/20 07/23/20 Strength] albuterol sulfate [ProAir HFA] 2 puffs INH Q4H PRN 03/18/20 07/23/20 budesonide-formoterol HFA 160 2 puff INHALATION BID 05/21/20 07/23/20 mcg-4.5 mcg/actuation aerosol inhaler buspirone 30 mg PO TID 07/21/20 07/23/20 clindamycin HCl 600 mg PO DIRECTED PRN 07/21/20 07/23/20 furosemide [Lasix] 20 mg PO QAM 07/21/20 07/23/20 paroxetine HCl 20 mg PO QAM 07/21/20 07/23/20 saxagliptin [Onglyza] 5 mg PO QAM 07/21/20 07/23/20 sildenafil 25 - 125 mg PO DAILY PRN 07/21/20 07/23/20 tiotropium bromide [Spiriva with 1 cap INHALATION QAM 07/21/20 07/23/20 HandiHaler] Previous Rx's Medication Instructions Recorded tramadol [Ultram] 50 mg PO Q4H PRN #20 tab 05/12/20 glimepiride 4 mg tablet 4 mg PO BID #180 tab 06/21/20 docusate sodium [Colace] 100 mg PO BID #60 cap 07/22/20 oxycodone 5 mg PO Q6H PRN #14 tab 07/22/20 sennosides [Senokot] 8.6 mg PO HS #30 tab 07/22/20 sacubitril 24 mg-valsartan 26 mg 1 tab PO BID #180 tab 07/23/20 tablet Results & Data (ED) Vital Signs Vital Signs - 24 hr 07/23/20 11:06 07/23/20 11:10 07/23/20 12:21 Temperature 36.8 C Temperature Source Oral Pulse Rate 88 Pulse Rate [Finger] 92 H Respiratory Rate 18 18 Respiratory Effort / Characteristics Non-Labored Spontaneous Non-Labored Spontaneous Respiratory Depth Normal Normal Respiratory Pattern Regular Regular Blood Pressure 132/81 Blood Pressure [Left Arm] 141/86 H Blood Pressure Mean 98 Blood Pressure Mean [Left Arm] 104 Blood Pressure Position Lying Blood Pressure Position [Left Arm] Lying Pulse Oximetry 95 95 98 Oxygen Delivery Method Room Air Room Air Room Air Sepsis Recent Fever Within 48 Hours No Sepsis New/Unexplained Change in Mental Status N/A Sepsis Action Taken by Nursing No Action Required 07/23/20 13:21 Temperature Temperature Source Pulse Rate Pulse Rate [Finger] 89 Respiratory Rate 18 Respiratory Effort / Characteristics Respiratory Depth Respiratory Pattern Blood Pressure Blood Pressure [Left Arm] 137/83 Blood Pressure Mean Blood Pressure Mean [Left Arm] 101 Blood Pressure Position Blood Pressure Position [Left Arm] Pulse Oximetry 98 Oxygen Delivery Method Room Air Sepsis Recent Fever Within 48 Hours Sepsis New/Unexplained Change in Mental Status Sepsis Action Taken by Intermediate Medications Current Medication List: was personally reviewed by me Laboratory Data Attestation: I reviewed the patient's lab results. Result diagrams: 07/23/20 11:04 07/23/20 11:04 Lab Results 07/23/20 07/23/20 07/23/20 Range/Units 11:04 11:04 11:04 WBC 14.74 H (4.8-10.8) K/uL RBC 3.84 L (4.7-6.1) M/uL Hgb 12.0 L (14.0-18.0) g/dL Hct 37.7 L (42-52) % MCV 98.2 (80-100) fL MCH 31.3 (25-34) pg MCHC 31.8 L (32-36) g/dL RDW Std Deviation 71.1 H (36.4-46.3) fL RDW Coeff of Linda 19.6 H (11.5-14.5) % Plt Count 423 H (130-400) K/uL MPV 10.3 (7.4-10.4) fL Immature Gran % (Auto) 0.3 % Neut % (Auto) 74.5 % Lymph % (Auto) 15.7 % [place] % (Auto) 9.1 % Eos % (Auto) 0.3 % Baso % (Auto) 0.1 % Neut # (Auto) 10.97 H (1.4-6.5) K/uL Lymph # (Auto) 2.32 (1.2-3.4) K/uL [place] # (Auto) 1.34 H (0.11-0.59) K/uL Eos # (Auto) 0.04 (0-0.5) K/uL Baso # (Auto) 0.02 (0-0.2) K/uL Immature Gran # (Auto) 0.05 H (0.00-0.02) K/uL Absolute Nucleated RBC 0.05 H (0-0) K/uL Nucleated RBC % (auto) 0.4 % ESR 75 H (0-14) mm/hr Sodium 139 (136-145) mmol/L Potassium 4.4 (3.5-5.1) mmol/L Chloride 105 (98-107) mmol/L Carbon Dioxide 28 (21-32) mmol/L Anion Gap 6.0 (3-11) BUN 32 H (7-18) mg/dl Creatinine 1.39 (0.6-1.4) mg/dl Est Cr Clr Drug Dosing 51.8 ml/min Est GFR ( Amer) 57.5 Est GFR (Non-Af Amer) 49.6 BUN/Creatinine Ratio 23.2 H (10-20) Glucose 279 H (70-99) mg/dl Calcium 9.5 (8.5-10.1) mg/dl Total Bilirubin 0.9 (0.2-1) mg/dl AST 13 L (15-37) U/L ALT 21 (12-78) U/L Alkaline Phosphatase 134 H (45-117) U/L C-Reactive Protein < 0.29 (0-0.29) mg/dl Total Protein 8.8 H (6.4-8.2) gm/dl Albumin 3.9 (3.4-5.0) gm/dl Globulin 4.9 H (2.5-4.0) gm/dl Albumin/Globulin Ratio 0.8 L (0.9-2) Lipase 385 (73-393) U/L Procalcitonin (0-0.5) ng/ml Urine Color Urine Appearance (Clear) Urine pH (4.5-7.5) Ur Specific [place] (1.000-1.030) Urine Protein (Negative) Urine Glucose (UA) (Negative) Urine Ketones (Negative) Urine Blood (Negative) Urine Nitrite (Negative) Urine Bilirubin (Negative) Urine Urobilinogen (Negative) Ur Leukocyte Esterase (Negative) SARS-CoV-2 Ag (Rapid) (Negative) 07/23/20 07/23/20 07/23/20 Range/Units 11:04 11:44 Unknown WBC (4.8-10.8) K/uL RBC (4.7-6.1) M/uL Hgb (14.0-18.0) g/dL Hct (42-52) % MCV (80-100) fL MCH (25-34) pg MCHC (32-36) g/dL RDW Std Deviation (36.4-46.3) fL RDW Coeff of Linda (11.5-14.5) % Plt Count (130-400) K/uL MPV (7.4-10.4) fL Immature Gran % (Auto) % Neut % (Auto) % Lymph % (Auto) % [place] % (Auto) % Eos % (Auto) % Baso % (Auto) % Neut # (Auto) (1.4-6.5) K/uL Lymph # (Auto) (1.2-3.4) K/uL [place] # (Auto) (0.11-0.59) K/uL Eos # (Auto) (0-0.5) K/uL Baso # (Auto) (0-0.2) K/uL Immature Gran # (Auto) (0.00-0.02) K/uL Absolute Nucleated RBC (0-0) K/uL Nucleated RBC % (auto) % ESR (0-14) mm/hr Sodium (136-145) mmol/L Potassium (3.5-5.1) mmol/L Chloride (98-107) mmol/L Carbon Dioxide (21-32) mmol/L Anion Gap (3-11) BUN (7-18) mg/dl Creatinine (0.6-1.4) mg/dl Est Cr Clr Drug Dosing ml/min Est GFR ( Amer) Est GFR (Non-Af Amer) BUN/Creatinine Ratio (10-20) Glucose (70-99) mg/dl Calcium (8.5-10.1) mg/dl Total Bilirubin (0.2-1) mg/dl AST (15-37) U/L ALT (12-78) U/L Alkaline Phosphatase (45-117) U/L C-Reactive Protein (0-0.29) mg/dl Total Protein (6.4-8.2) gm/dl Albumin (3.4-5.0) gm/dl Globulin (2.5-4.0) gm/dl Albumin/Globulin Ratio (0.9-2) Lipase (73-393) U/L Procalcitonin 0.09 (0-0.5) ng/ml Urine Color Yellow Urine Appearance Clear (Clear) Urine pH 5.0 (4.5-7.5) Ur Specific [place] 1.019 (1.000-1.030) Urine Protein Negative (Negative) Urine Glucose (UA) Trace H (Negative) Urine Ketones Negative (Negative) Urine Blood Negative (Negative) Urine Nitrite Negative (Negative) Urine Bilirubin Negative (Negative) Urine Urobilinogen Negative (Negative) Ur Leukocyte Esterase Negative (Negative) SARS-CoV-2 Ag (Rapid) Negative (Negative) Administered Medications Morphine Sulfate (Morphine Sulfate 4 Mg/Ml 1 Ml Carp\\Vial) 4 mg IV Q15M PRN PRN Reason: Pain Stop: 08/06/20 10:47 Last Admin: 07/23/20 11:17 Dose: 4 mg Documented by: [id number] Discontinued Medications Dexamethasone (Dexamethasone Sod Inj 10 Mg/Ml Vial) 10 mg IV NOW ONE Stop: 07/23/20 10:49 Last Admin: 07/23/20 11:17 Dose: 10 mg Documented by: [id number] Admin: 07/23/20 11:17 Dose: 10 mg Documented by: [id number] Sodium Chloride (Nss 1000ml) 1,000 mls @ 999 mls/hr IV .Q1H1M COLLIN Stop: 07/23/20 12:00 Last Infusion: 07/23/20 12:18 Dose: 0 mls/hr Documented by: [id number] Admin: 07/23/20 11:17 Dose: 999 mls/hr Documented by: [id number] Pantoprazole Sodium 40 mg/ (Syringe) 10 mls @ 5 mls/min IV NOW ONE Stop: 07/23/20 10:49 Last Admin: 07/23/20 11:17 Dose: 5 mls/min Documented by: [id number] Ondansetron HCl (Ondansetron Inj 2 Mg/Ml 2 Ml Vial) 4 mg IV NOW STA Stop: 07/23/20 10:49 Last Admin: 07/23/20 11:17 Dose: 4 mg Documented by: [id number] Blood Pressure Blood Pressure Findings: Normal blood pressure Discharge Plan Visit Data Chief Complaint: Hip Pain ED Provider: Donato Kerns Discharge Problem: Acute low back pain with sciatica Patient Disposition: Being Evaluated by Hospitalist Condition: Good Forms Stand Alone Forms: [facility] [employer] Prescriptions Prescriptions: No Action glimepiride 4 mg tablet 4 mg PO BID Qty: 180 RF: 1 Entresto 24-26 mg tablet 1 tab PO BID Qty: 180 RF: 3 budesonide-formoterol [Symbicort] 160-4.5 mcg/actuation HFA aerosol inhaler 2 puff inhalation BID RF: 0 Lantus Solostar U-100 Insulin 100 unit/mL (3 mL) insulin pen 30 units SUBCUT BID RF: 0 acetaminophen [Tylenol Extra Strength] 500 mg Tablet 1,000 mg PO TID PRN (Reason: Pain) RF: 0 albuterol sulfate [ProAir HFA] 90 mcg/actuation HFA aerosol inhaler 2 puffs INH Q4H PRN (Reason: shortness of breath or wheezing) RF: 0 sildenafil 25 mg Tablet 25 - 125 mg PO DAILY PRN (Reason: 30-60 MIN. PRIOR TO INTERCOURSE) RF: 0 paroxetine HCl 20 mg Tablet 20 mg PO QAM RF: 0 buspirone 30 mg Tablet 30 mg PO TID RF: 0 furosemide [Lasix] 20 mg Tablet 20 mg PO QAM RF: 0 Spiriva with HandiHaler 18 mcg Capsule, W/Inhalation Device 1 cap INHALATION QAM RF: 0 Onglyza 5 mg Tablet 5 mg PO QAM RF: 0 clindamycin HCl 300 mg capsule 600 mg PO DIRECTED PRN (Reason: PRIOR TO DENTAL WORK.) RF: 0 oxycodone 5 mg tablet 5 mg PO Q6H PRN (Reason: pain) Qty: 14 RF: 0 sennosides [Senokot] 8.6 mg tablet 8.6 mg PO HS Qty: 30 RF: 0 docusate sodium [Colace] 100 mg capsule 100 mg PO BID Qty: 60 RF: 0 finasteride 5 mg Tablet 5 mg PO QAM RF: 0 epinephrine [EpiPen] 0.3 mg/0.3 mL Auto-Injector 0.3 mg IM Q3H PRN (Reason: Allergy Symptoms) RF: 0 metoprolol tartrate 25 mg Tablet 12.5 mg PO BID RF: 0 gabapentin 300 mg Capsule 300 mg PO QID RF: 0 duloxetine 60 mg Capsule,Delayed Release(Dr/Ec) 60 mg PO QAM RF: 0 lamotrigine 200 mg Tablet 200 mg PO HS RF: 0 hydrocortisone 2.5 % Ointment 1 applic TOPICAL HS PRN (Reason: Itching) RF: 0 atorvastatin [Lipitor] 40 mg Tablet 40 mg PO HS RF: 0 donepezil 10 mg Tablet 10 mg PO QAM RF: 0 memantine 5 mg Tablet 5 mg PO BID RF: 0 aspirin 81 mg tablet,delayed release (DR/EC) 40.5 mg PO QAM RF: 0 nitroglycerin [Nitrostat] 0.4 mg tablet, sublingual 0.4 mg Sublingual DIRECTED PRN (Reason: Chest Pain) RF: 0 tramadol [Ultram] 50 mg tablet 50 mg PO Q4H PRN (Reason: pain) Qty: 20 RF: 0 Referrals Referrals: Leandro Rodrigues MD [Primary Care Provider] - Discharge Problem: Acute low back pain with sciatica Qualifiers: Back pain laterality: unspecified Sciatica laterality: sciatica of right side Qualified Code(s): M54.41 - Lumbago with sciatica, right side
[2020-07-23] MEDS ORDERED: SODIUM CHLORIDE 0.9% 1000ML 1,000 ML IV SCH (11:00)
[2020-07-23 11:13] LABS: Basophils # (auto) 0.02 K/uL (0-0.2); Basophils % (auto) 0.1 %; Eosinophils # (auto) 0.04 K/uL (0-0.5); Eosinophils % (auto) 0.3 %; Hematocrit (blood only) 37.7 % (42-52); Immature Granulocytes # (auto) 0.05 K/uL (0.00-0.02); Immature Granulocytes % (auto) 0.3 %; Lymphocytes # (auto) 2.32 K/uL (1.2-3.4); Lymphocytes % (auto) 15.7 %; Mean Corpuscular Hemoglobin 31.3 pg (25-34); Mean Corpuscular Hgb Conc 31.8 g/dL (32-36); Mean Corpuscular Volume 98.2 fL (80-100); Mean Platelet Volume 10.3 fL (7.4-10.4); Monocytes # (auto) 1.34 K/uL (0.11-0.59); Monocytes % (auto) 9.1 %; Neutrophils # (auto) 10.97 K/uL (1.4-6.5); Neutrophils % (auto) 74.5 %; Nucleated RBC # (auto) 0.05 K/uL (0-0); Nucleated RBC % (auto) 0.4 %; Platelet Count 423 K/uL (130-400); RDW Coefficient of Variation 19.6 % (11.5-14.5); RDW Standard Deviation 71.1 fL (36.4-46.3); Red Blood Count 3.84 M/uL (4.7-6.1); White Blood Count 14.74 K/uL (4.8-10.8)
[2020-07-23] MEDS: DEXAMETHASONE SOD INJ 10 MG/ML VIAL IV ONE (11:17)
[2020-07-23 11:29] LABS: Alanine Aminotransferase 21 U/L (12-78); Albumin Level 3.9 gm/dl (3.4-5.0); Aspartate Aminotransferase 13 U/L (15-37); BUN Creatinine Ratio 23.2 (10-20); Blood Urea Nitrogen 32 mg/dl (7-18); C Reactive Protein < 0.29 mg/dl (0-0.29); Calcium 9.5 mg/dl (8.5-10.1); Carbon Dioxide 28 mmol/L (21-32); Chloride 105 mmol/L (98-107); Creatinine Clr Calc Pharmacy 51.8 ml/min; Est GFR (African American) 57.5; Est GFR (Non-African American) 49.6; Glucose 279 mg/dl (70-99); Lipase 385 U/L (73-393); Potassium 4.4 mmol/L (3.5-5.1); Sodium 139 mmol/L (136-145)
[2020-07-23 11:32] LABS: Albumin Globulin Ratio 0.8 (0.9-2); Alkaline Phosphatase 134 U/L (45-117); Bilirubin,Total 0.9 mg/dl (0.2-1); Globulin 4.9 gm/dl (2.5-4.0); Total Protein 8.8 gm/dl (6.4-8.2)
[2020-07-23 11:51] LABS: Appearance Urine Clear (Clear); Bilirubin Urine Negative (Negative); Blood Urine Negative (Negative); Color Urine Yellow; Glucose Urine UA Trace (Negative); Ketones Urine Negative (Negative); Leukocyte Esterase Urine Negative (Negative); Nitrite Urine Negative (Negative); Protein Urine Negative (Negative); Specific Gravity Urine 1.019 (1.000-1.030); Urobilinogen Urine Negative (Negative)
[2020-07-23] MEDS ORDERED: GLUCAGON FOR INJ 1 MG VIAL SQ PRN (13:23)
[2020-07-23] MEDS ORDERED: GLUCOSE 40% GEL 15 GM TUBE PO PRN (13:23)
[2020-07-23] MEDS ORDERED: GLUCOSE 10 TABS/TUBE PO PRN (13:23)
[2020-07-23] MEDS ORDERED: CARBOHYDRATES FOR HYPOGLYCEMIA PO PRN (13:23)
[2020-07-23] MEDS ORDERED: DEXTROSE 50% 50 ML SYRINGE IV PRN (13:23)
[2020-07-23] MEDS ORDERED: ACETAMINOPHEN 500 MG TAB PO PRN (13:30)
[2020-07-23] MEDS ORDERED: NITROGLYCERIN SL 0.4 MG/TAB TAB SL PRN (13:35)
[2020-07-23] MEDS ORDERED: ALBUTEROL HFA 8 GM INHALER INH PRN (14:08)
[2020-07-23] MEDS ORDERED: HYDROCORTISONE HC 2.5% CRM 30GM TUBE EXT PRN (14:09)
[2020-07-23] MEDS ORDERED: PHARMACY GLYCEMIC MGMT CONSULT PRN (14:16)
[2020-07-23] MEDS ORDERED: INSULIN ASPART 100 UNITS/ML 3 ML PEN SC ONE (14:45)
[2020-07-23] MEDS ORDERED: Nursing to Pharmacy Communication SCH (17:00)
[2020-07-23] MEDS: busPIRone 15 MG TAB PO SCH ×2 (17:02→22:22)
--- NOTE | 2020-07-23 17:03 | History & Physical Report ---
Date of Service July 23, 2020 Assessment & Plan (1) Intractable back pain: * CT findings concerning for broad-based disc bulge at L2-L3 with superimposed right paracentral disc extrusion with inferior subligamentous migration that results in severe narrowing of the right lateral recess. * Patient to be seen by orthopedic spine. * He is status post surgical intervention in May of 2020. * Ongoing pain control ordered. (2) Acute hip pain: * Likely radicular secondary to above. (3) Acute low back pain with sciatica: * As above. (4) CAD, multiple vessel: * Continue multiple home medications as prescribed. (5) Lumbar disc herniation: * As above. (6) COPD (chronic obstructive pulmonary disease): * Continue home medications. * Supplemental oxygen as needed. (7) CKD (chronic kidney disease): * Creatinine of 1.39. * No significant electrolyte derangements today. (8) Diabetes mellitus type 2, controlled: * On multiple home medications. * Appreciate pharmacy consultation for glycemic control. 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 In May of this year, the patient underwent lumbar decompression with bilateral medial fasciotomies and foraminotomies L2-3 L3-4 with removal of fragments from L2-3. Patient reports that he was completely pain-free without complaints of pain in his back or radicular symptoms. On Wednesday, the patient notes that he had a sudden development of pain to the anterior aspect of the RIGHT thigh that extends to the knee and back up to the RIGHT groin. He was seen in the emergency department on 07/21 and had imaging studies performed of the lumbar spine and pelvis. Patient sent home on steroids and narcotics. He did schedule a follow-up appointment with his orthopedic surgeon tomorrow, however he reports increasing pain with any attempted movement which prompted visit to the emergency department today. On evaluation in the emergency department, the patient is awake, alert, and oriented. He reports that the morphine for his pain has provided some relief. He reports that he is frustrated that he is having return of pain and that it is worsened over the last several hours. Other than pain over the anterior aspect of the thigh and groin, he denies any complaints of lumbar back pain. Patient denies any loss of control bowel/bladder saddle anesthesia. He rates his current discomfort as a 4/10. He reports the morphine has provided relief. Patient denies any complaints of headaches, dizziness, lightheadedness, chest pain, palpitations, shortness of breath, nausea, vomiting, or abdominal pain. Allergies Allergy/AdvReac Type Severity Reaction Status Date / Time bee venom protein (honey bee) Allergy Severe SWELLING Verified 07/23/20 12:39 Sulfa (Sulfonamide Allergy Intermediate "SULFA": Verified 07/23/20 12:39 Antibiotics) RASH Penicillins Allergy Unknown UNKNOWN Verified 07/23/20 12:39 codeine AdvReac Intermediate HALLUCINATI Verified 07/23/20 12:39 NG Home Medications Medication Instructions Recorded Confirmed Type epinephrine [EpiPen] 0.3 mg IM Q3H PRN 10/21/18 07/23/20 History finasteride 5 mg PO QAM 10/21/18 07/23/20 History metoprolol tartrate 12.5 mg PO BID 10/21/18 07/23/20 History atorvastatin [Lipitor] 40 mg PO HS 10/22/18 07/23/20 History donepezil 10 mg PO QAM 10/22/18 07/23/20 History duloxetine 60 mg PO QAM 10/22/18 07/23/20 History gabapentin 300 mg PO QID 10/22/18 07/23/20 History hydrocortisone 1 applic TOPICAL HS PRN 10/22/18 07/23/20 History lamotrigine 200 mg PO HS 10/22/18 07/23/20 History memantine 5 mg PO BID 10/22/18 07/23/20 History aspirin 81 mg tablet,delayed 40.5 mg PO QAM tab 04/03/19 07/23/20 History release nitroglycerin 0.4 mg sublingual 0.4 mg SUBLINGUAL DIRECTED PRN 04/03/19 07/23/20 History tablet insulin glargine 100 unit/mL (3 30 units SUBCUT BID ml 07/25/19 07/23/20 History mL) subcutaneous pen acetaminophen [Tylenol Extra 1,000 mg PO TID PRN 03/18/20 07/23/20 History Strength] albuterol sulfate [ProAir HFA] 2 puffs INH Q4H PRN 03/18/20 07/23/20 History tramadol [Ultram] 50 mg PO Q4H PRN #20 tab 05/12/20 07/23/20 Rx budesonide-formoterol HFA 160 2 puff INHALATION BID 05/21/20 07/23/20 History mcg-4.5 mcg/actuation aerosol inhaler glimepiride 4 mg tablet 4 mg PO BID #180 tab 06/21/20 07/23/20 Rx buspirone 30 mg PO TID 07/21/20 07/23/20 History clindamycin HCl 600 mg PO DIRECTED PRN 07/21/20 07/23/20 History furosemide [Lasix] 20 mg PO QAM 07/21/20 07/23/20 History paroxetine HCl 20 mg PO QAM 07/21/20 07/23/20 History saxagliptin [Onglyza] 5 mg PO QAM 07/21/20 07/23/20 History sildenafil 25 - 125 mg PO DAILY PRN 07/21/20 07/23/20 History tiotropium bromide [Spiriva with 1 cap INHALATION QAM 07/21/20 07/23/20 History HandiHaler] docusate sodium [Colace] 100 mg PO BID #60 cap 07/22/20 07/23/20 Rx oxycodone 5 mg PO Q6H PRN #14 tab 07/22/20 07/23/20 Rx sennosides [Senokot] 8.6 mg PO HS #30 tab 07/22/20 07/23/20 Rx sacubitril 24 mg-valsartan 26 mg 1 tab PO BID #180 tab 07/23/20 07/23/20 Rx tablet Past Med/Surg History Medical History Aneurysm of ascending aorta Asthma with COPD Bicuspid aortic valve BPH (benign prostatic hyperplasia) CAD (coronary artery disease) Carotid artery stenosis CKD (chronic kidney disease) COPD (chronic obstructive pulmonary disease) Dementia HTN (hypertension), benign Hyperlipidemia Lumbar radiculopathy Myelodysplastic syndrome Myocardial infarction Pacemaker Placed after AVR due to complete heart block TIA (transient ischemic attack) Surgical History H/O cardiac catheterization H/O endoscopic retrograde cholangiopancreatography History of back surgery 05/14/2020 History of colonoscopy History of repair of rotator cuff History of tonsillectomy Hx of cholecystectomy S/P aortic valve replacement S/P coronary artery stent placement S/P right knee surgery Status post cardiac pacemaker procedure for h/o complete heart block s/p his AVR Family History Sister Anxiety Brother Alcohol abuse Father Cardiac disorder Myocardial infarction Mother Depression Kidney disease Lung disease Stroke Other Family history non-contributory Denies family history of Ovarian cancer Prostate cancer Breast cancer Colorectal cancer Social History Smoking Status: Never smoker Tobacco Type: Cigarettes Age Quit Using Tobacco: 64; Cigarettes Per Day: Random cigarette usage; Second Hand Exposure: No; Hx Alcohol Use: Yes Alcohol type: hard liquor Hx Substance Use: No Preferred Language: Japanese Communication Ability: Effective Visual Impairment: No Limitations Hearing Ability: Use of Hearing Aid Senior Product Development Manager Required: No Beliefs That Will Affect Care: None marital status: Current Living Situation: Spouse Current Living Situation Comment: House Feels Safe at Home: Yes Childhood Exposure to Second-Hand Smoke: Yes Seatbelt Use: always Sunscreen Use: Yes Assistive Devices: Glasses Review of Systems Review of Systems: A complete 10 point review of systems was reviewed with the patient with pertinent positives and negatives as per history of present illness. All else were negative. Physical Exam Physical Exam: VITAL SIGNS - Vital signs and nursing notes were reviewed. GENERAL - 75-year-old male appearing his stated age who is in no acute distress. Communicates well with provider and answers questions appropriately. SKIN - Without rashes. HEAD - NC/AT. EYES - PERRL with EOMI bilaterally. Sclera anicteric. EARS - No deformities of external structures noted on gross examination bilaterally. NOSE - Midline and without cyanosis. MOUTH/OROPHARYNX - Without perioral cyanosis. NECK - Neck with FROM. Supple to palpation. No nuchal rigidity. LUNGS - Chest wall symmetric without accessory muscle use, intercostals retrac tions, or central cyanosis. Normal vesicular breath sounds CTA B/L. No wheezes, rales, or rhonchi appreciated. CARDIAC - RRR with S1/S2. No murmur, rubs, or gallops appreciated. ABDOMEN - Abdominal contour flat without pulsations or visible masses. BS normoactive all four quadrants. No tenderness, palpable masses, hepatosplenomegaly, or ascites noted. - Testicles descended bilaterally. No edema or erythema appreciated. No tenderness to palpation. EXTREMITIES - No clubbing or peripheral cyanosis. No pretibial edema present. +3/5 radial and dorsalis pedis pulses palpated throughout. +5/5 strength noted in UE/LE bilaterally. NEUROLOGIC - Cranial nerves II through XII grossly intact. Sensory intact to light touch throughout. Patellar reflexes +2/4 on the LEFT and +1/4 on the RIGHT. PSYCH - A&Ox3 and cooperates fully with examiner. Pt is very pleasant and interacts well with examiner. Results & Data Results & Data ([facility]) Vital Signs (Past 12 Hours) Vital Signs Temp Pulse Pulse Resp BP BP Pulse Ox 07/23/20 16:31 36.4 C L 103 H 20 145/84 H 100 07/23/20 15:42 95 H 20 127/82 95 07/23/20 14:36 93 H 18 140/78 95 07/23/20 13:21 89 18 137/83 98 07/23/20 12:21 92 H 18 141/86 H 98 07/23/20 11:10 95 07/23/20 11:06 36.8 C 88 18 132/81 95 Code Status & VTE Plan VTE Prophylaxis Plan VTE Prophylaxis will be ordered: Yes Supervising Physician Co-Signing Physician Notes Patient was seen and examined independently I discussed the case with [facility] I reviewed pertinent past medical social family history and also the plan of care and agree with the plan of care. Patient has radicular pain in his right leg which is similar to his preoperative state. Patient is intolerant of this pain at home. He was doing better postoperatively until 2 days prior to in presentation. He does not have any neurological deficiency. Patient admitted for pain control and surgical consultation I examined him he does not have any hernia his phallus and testicles are normal his legs tactile sensation is intact. Any exceptions will be noted below PG Care Time/CCT Total # of Minutes Spent Total Time Spent with Patient: Total time spent is greater than 50% in coordination of care (as documented) at patient's floor/unit and/or counseling patient: Coding Level of Care Code 99922 Initial Inpt Care Lvl 3 Diagnoses Intractable back pain M54.9 Acute hip pain M25.551 Laterality: right Acute low back pain with sciatica M54.41 Back pain laterality: unspecified Sciatica laterality: sciatica of right side CAD, multiple vessel I25.10 Lumbar disc herniation M51.26 COPD (chronic obstructive pulmonary disease) J44.9 CKD (chronic kidney disease) N18.9 Diabetes mellitus type 2, controlled E11.9 Pacemaker Z95.0 Time Spent (min) 35 (1) Acute hip pain Laterality: right Qualified Code(s): M25.551 - Pain in right hip (2) Acute low back pain with sciatica Back pain laterality: unspecified Sciatica laterality: sciatica of right side Qualified Code(s): M54.41 - Lumbago with sciatica, right side
[2020-07-23] MEDS: GABAPENTIN 300 MG CAP PO SCH ×2 (17:05→21:12)
[2020-07-23] MEDS: LIDOCAINE 5% 1 PATCH TD SCH (17:55)
[2020-07-23] MEDS ORDERED: INSULIN ASPART 100 UNITS/ML 3 ML PEN SC SCH (18:00)
[2020-07-23] MEDS: INSULIN ASPART 100 UNITS/ML 3 ML PEN SC SCH ×2 (18:05→21:18)
[2020-07-23] MEDS ORDERED: GLIMEPIRIDE 2 MG TAB PO SCH (21:00)
[2020-07-23] MEDS ORDERED: INSULIN GLARGINE SOLOSTAR 100 UNITS/ML 3 ML PEN SC SCH (21:00)
[2020-07-23] MEDS: ATORVASTATIN 40 MG TAB PO SCH (21:12)
[2020-07-23] MEDS: DOCUSATE SODIUM 100 MG CAP PO SCH (21:12)
[2020-07-23] MEDS: lamoTRIgine 100 MG TAB PO SCH (21:12)
[2020-07-23] MEDS: MEMANTINE HCL 5 MG TAB PO SCH (21:12)
[2020-07-23] MEDS: SENNA 8.6 MG TAB PO SCH (21:12)
[2020-07-23] MEDS: SACUBITRIL-VALSARTAN 24-26 MG TAB PO SCH (21:12)
[2020-07-23] MEDS: METOPROLOL TARTRATE 25 MG TAB PO SCH (21:12)
[2020-07-23] MEDS: oxyCODONE HCL IR 5 MG TAB (IMMEDIATE RELEASE) PO PRN (21:25)
[2020-07-24] MEDS ORDERED: INSULIN ASPART 100 UNITS/ML 3 ML PEN SC SCH (03:00)
[2020-07-24 06:03] LABS: Basophils # (auto) 0.01 K/uL (0-0.2); Basophils % (auto) 0.1 %; Eosinophils # (auto) 0.02 K/uL (0-0.5); Eosinophils % (auto) 0.1 %; Hematocrit (blood only) 36.3 % (42-52); Hemoglobin 11.7 g/dL (14.0-18.0); Immature Granulocytes # (auto) 0.04 K/uL (0.00-0.02); Immature Granulocytes % (auto) 0.2 %; Lymphocytes # (auto) 2.83 K/uL (1.2-3.4); Lymphocytes % (auto) 16.1 %; Mean Corpuscular Hemoglobin 31.7 pg (25-34); Mean Corpuscular Hgb Conc 32.2 g/dL (32-36); Mean Corpuscular Volume 98.4 fL (80-100); Mean Platelet Volume 10.7 fL (7.4-10.4); Monocytes # (auto) 1.55 K/uL (0.11-0.59); Monocytes % (auto) 8.8 %; Neutrophils # (auto) 13.18 K/uL (1.4-6.5); Neutrophils % (auto) 74.7 %; Platelet Count 433 K/uL (130-400); RDW Coefficient of Variation 19.8 % (11.5-14.5); Red Blood Count 3.69 M/uL (4.7-6.1); White Blood Count 17.63 K/uL (4.8-10.8)
[2020-07-24 06:23] LABS: BUN Creatinine Ratio 30.5 (10-20); Calcium 9.2 mg/dl (8.5-10.1); Creatinine Clr Calc Pharmacy 49.5 ml/min; Est GFR (African American) 55.1; Est GFR (Non-African American) 47.5
[2020-07-24 06:24] LABS: Estimated Average Glucose 186 mg/dl; Hemoglobin A1C 8.1 % (4.5-5.6)
[2020-07-24] MEDS ORDERED: INSULIN GLARGINE SOLOSTAR 100 UNITS/ML 3 ML PEN SC SCH ×2 (09:00→21:00)
[2020-07-24] MEDS: SACUBITRIL-VALSARTAN 24-26 MG TAB PO SCH ×2 (09:07→21:25)
[2020-07-24] MEDS: FINASTERIDE 5 MG TAB PO SCH (09:07)
[2020-07-24] MEDS: GABAPENTIN 300 MG CAP PO SCH ×4 (09:08→21:23)
[2020-07-24] MEDS: METOPROLOL TARTRATE 25 MG TAB PO SCH ×2 (09:08→21:27)
[2020-07-24] MEDS: DOCUSATE SODIUM 100 MG CAP PO SCH ×2 (09:08→21:26)
[2020-07-24] MEDS: DONEPEZIL HCL 10 MG TAB PO SCH (09:08)
[2020-07-24] MEDS: FUROSEMIDE 20 MG TAB PO SCH (09:09)
[2020-07-24] MEDS: ASPIRIN 81 MG CHEW PO SCH (09:09)
[2020-07-24] MEDS: DULoxetine HCL 60 MG CAP PO SCH (09:09)
[2020-07-24] MEDS: PARoxetine HCL 20 MG TAB PO SCH (09:10)
[2020-07-24] MEDS: MEMANTINE HCL 5 MG TAB PO SCH ×2 (09:10→21:26)
[2020-07-24] MEDS: UMECLIDINIUM BROMIDE 62.5MCG/BLISTER 7 PUFFS/INHALER INH SCH (09:10)
[2020-07-24] MEDS: INSULIN ASPART 100 UNITS/ML 3 ML PEN SC SCH ×4 (09:20→22:19)
[2020-07-24] MEDS: LIDOCAINE 5% 1 PATCH TD SCH (09:34)
--- NOTE | 2020-07-24 09:41 | Orthopedic Consultation ---
Date of Consultation July 24, 2020 Assessment & Plan (1) Recurrent herniation of lumbar disc: I will discuss with this patient regarding his imaging findings and treatment plan. At this point he is markedly uncomfortable unable to ambulate is evidence of a massive recurrent disc herniation is a candidate for surgery. I am recommending revision decompression but this time fusion of L2-3 L3-4. Risk benefits pros cons and alternatives were outlined in detail. This time we will plan for surgery tomorrow to make him n.p.o. after midnight. Present on Admission?: Yes History of Present Illness Reason for Consultation: Right leg pain with weakness Attending Physician: Lam Carter MD History of Present Illness This is a 75-year-old male well-known to me that status post lumbar decompression several months ago. Unfortunately this past weekend he began experiencing significant right anterior thigh pain with radiation to the right testicle. This limited his ability to stand and ambulate secondary to pain and weakness. It has been progressively has been to the emergency room now 2 times because of pain and subsequently admitted. Left lower extremities asymptomatic. Denies any loss of bowel bladder control. Allergies Allergy/AdvReac Type Severity Reaction Status Date / Time bee venom protein (honey bee) Allergy Severe SWELLING Verified 07/23/20 12:39 Sulfa (Sulfonamide Allergy Intermediate "SULFA": Verified 07/23/20 12:39 Antibiotics) RASH Penicillins Allergy Unknown UNKNOWN Verified 07/23/20 12:39 codeine AdvReac Intermediate HALLUCINATI Verified 07/23/20 12:39 NG Home Medications Medication Instructions Recorded Confirmed Type epinephrine [EpiPen] 0.3 mg IM Q3H PRN 10/21/18 07/23/20 History finasteride 5 mg PO QAM 10/21/18 07/23/20 History metoprolol tartrate 12.5 mg PO BID 10/21/18 07/23/20 History atorvastatin [Lipitor] 40 mg PO HS 10/22/18 07/23/20 History donepezil 10 mg PO QAM 10/22/18 07/23/20 History duloxetine 60 mg PO QAM 10/22/18 07/23/20 History gabapentin 300 mg PO QID 10/22/18 07/23/20 History hydrocortisone 1 applic TOPICAL HS PRN 10/22/18 07/23/20 History lamotrigine 200 mg PO HS 10/22/18 07/23/20 History memantine 5 mg PO BID 10/22/18 07/23/20 History aspirin 81 mg tablet,delayed 40.5 mg PO QAM tab 04/03/19 07/23/20 History release nitroglycerin 0.4 mg sublingual 0.4 mg SUBLINGUAL DIRECTED PRN 04/03/19 07/23/20 History tablet insulin glargine 100 unit/mL (3 30 units SUBCUT BID ml 07/25/19 07/23/20 History mL) subcutaneous pen acetaminophen [Tylenol Extra 1,000 mg PO TID PRN 03/18/20 07/23/20 History Strength] albuterol sulfate [ProAir HFA] 2 puffs INH Q4H PRN 03/18/20 07/23/20 History tramadol [Ultram] 50 mg PO Q4H PRN #20 tab 05/12/20 07/23/20 Rx budesonide-formoterol HFA 160 2 puff INHALATION BID 05/21/20 07/23/20 History mcg-4.5 mcg/actuation aerosol inhaler glimepiride 4 mg tablet 4 mg PO BID #180 tab 06/21/20 07/23/20 Rx buspirone 30 mg PO TID 07/21/20 07/23/20 History clindamycin HCl 600 mg PO DIRECTED PRN 07/21/20 07/23/20 History furosemide [Lasix] 20 mg PO QAM 07/21/20 07/23/20 History paroxetine HCl 20 mg PO QAM 07/21/20 07/23/20 History saxagliptin [Onglyza] 5 mg PO QAM 07/21/20 07/23/20 History sildenafil 25 - 125 mg PO DAILY PRN 07/21/20 07/23/20 History tiotropium bromide [Spiriva with 1 cap INHALATION QAM 07/21/20 07/23/20 History HandiHaler] docusate sodium [Colace] 100 mg PO BID #60 cap 07/22/20 07/23/20 Rx oxycodone 5 mg PO Q6H PRN #14 tab 07/22/20 07/23/20 Rx sennosides [Senokot] 8.6 mg PO HS #30 tab 12/14/20 12/15/20 Rx sacubitril 24 mg-valsartan 26 mg 1 tab PO BID #180 tab 07/23/20 07/23/20 Rx tablet Patient History Medical History Aneurysm of ascending aorta Asthma with COPD Bicuspid aortic valve BPH (benign prostatic hyperplasia) CAD (coronary artery disease) Carotid artery stenosis CKD (chronic kidney disease) COPD (chronic obstructive pulmonary disease) Dementia HTN (hypertension), benign Hyperlipidemia Lumbar radiculopathy Myelodysplastic syndrome Myocardial infarction Pacemaker Placed after AVR due to complete heart block TIA (transient ischemic attack) Surgical History H/O cardiac catheterization H/O endoscopic retrograde cholangiopancreatography History of back surgery 05/14/2020 History of colonoscopy History of repair of rotator cuff History of tonsillectomy Hx of cholecystectomy S/P aortic valve replacement S/P coronary artery stent placement S/P right knee surgery Status post cardiac pacemaker procedure for h/o complete heart block s/p his AVR Family History Sister Anxiety Brother Alcohol abuse Father Cardiac disorder Myocardial infarction Mother Depression Kidney disease Lung disease Stroke Other Family history non-contributory Denies family history of Ovarian cancer Prostate cancer Breast cancer Colorectal cancer Social History Smoking Status: Never smoker Tobacco Type: Cigarettes Age Quit Using Tobacco: 64; Cigarettes Per Day: Random cigarette usage; Second Hand Exposure: No; Hx Alcohol Use: Yes Alcohol type: hard liquor Hx Substance Use: No Preferred Language: Malian Communication Ability: Effective Visual Impairment: No Limitations Hearing Ability: Use of Hearing Aid Etiquette Coach Required: No Beliefs That Will Affect Care: None marital status: Current Living Situation: Spouse Current Living Situation Comment: House Feels Safe at Home: Yes Childhood Exposure to Second-Hand Smoke: Yes Seatbelt Use: always Sunscreen Use: Yes Assistive Devices: Glasses and Hearing Aid - Left Physical Exam Physical Exam: On exam is able to lie comfortably in bed but not when sitting up he gets reproduction of pain in the groin and right thigh. He demonstrates appreciable atrophy to the right quadriceps compared to the left. He has marked weakness to the right quadriceps compared to left at a 4/5 sensory diminished as well. Plantar flexion dorsiflexion intact. Incision is well-healed. Results & Data ([facility]) Vital Signs (Past 12 Hours) Vital Signs Temp Pulse Resp BP Pulse Ox 07/24/20 06:40 36.7 C 93 H 18 119/79 94 07/23/20 23:59 36.8 C 112 H 19 107/65 92
--- NOTE | 2020-07-24 10:03 | Anesthesiology Consultation ---
Date of Service July 24, 2020 Covid 19 negative on 07/23/20. The patient tolerated back surgery on 05/10/20. Assessment & Plan (1) Encounter for pre-operative examination: Chart Review Chart Review: Acceptable Risk for Surgery and Patient NOT seen in Pre Admission Testing Consults Requested none medicine is following History Surgery Operation Date: 07/25/20 10:05 Proposed Procedures p L2-L3, L3-L4 Decompression and Fusion with Instrumentation, Spinal Cord Monitoring - Shaheed Brown DO Height/Weight Height: 5 ft 9 in Weight: 88.5 kg Allergies Allergy/AdvReac Type Severity Reaction Status Date / Time bee venom protein (honey bee) Allergy Severe SWELLING Verified 07/23/20 12:39 Sulfa (Sulfonamide Allergy Intermediate "SULFA": Verified 07/23/20 12:39 Antibiotics) RASH Penicillins Allergy Unknown UNKNOWN Verified 07/23/20 12:39 codeine AdvReac Intermediate HALLUCINATI Verified 07/23/20 12:39 NG Medications Home Medications Medication Instructions Recorded Confirmed Last Taken epinephrine [EpiPen] 0.3 mg IM Q3H PRN 10/21/18 07/23/20 Unknown finasteride 5 mg PO QAM 10/21/18 07/23/20 07/23/20 metoprolol tartrate 12.5 mg PO BID 10/21/18 07/23/20 07/23/20 atorvastatin [Lipitor] 40 mg PO HS 10/22/18 07/23/20 07/22/20 donepezil 10 mg PO QAM 10/22/18 07/23/20 07/23/20 duloxetine 60 mg PO QAM 10/22/18 07/23/20 07/23/20 gabapentin 300 mg PO QID 10/22/18 07/23/20 07/23/20 09:00 hydrocortisone 1 applic TOPICAL HS PRN 10/22/18 07/23/20 05/05/20 lamotrigine 200 mg PO HS 10/22/18 07/23/20 07/22/20 memantine 5 mg PO BID 10/22/18 07/23/20 07/23/20 aspirin 81 mg tablet,delayed 40.5 mg PO QAM tab 04/03/19 07/23/20 07/23/20 release nitroglycerin 0.4 mg sublingual 0.4 mg SUBLINGUAL DIRECTED PRN 04/03/19 07/23/20 Unknown tablet insulin glargine 100 unit/mL (3 30 units SUBCUT BID ml 07/25/19 07/23/20 07/23/20 09:00 mL) subcutaneous pen acetaminophen [Tylenol Extra 1,000 mg PO TID PRN 03/18/20 07/23/20 Unknown Strength] albuterol sulfate [ProAir HFA] 2 puffs INH Q4H PRN 03/18/20 07/23/20 07/23/20 tramadol [Ultram] 50 mg PO Q4H PRN #20 tab 05/12/20 07/23/20 Unknown budesonide-formoterol HFA 160 2 puff INHALATION BID 05/21/20 07/23/20 07/23/20 09:00 mcg-4.5 mcg/actuation aerosol inhaler glimepiride 4 mg tablet 4 mg PO BID #180 tab 06/21/20 07/23/20 07/23/20 buspirone 30 mg PO TID 07/21/20 07/23/20 07/23/20 09:00 clindamycin HCl 600 mg PO DIRECTED PRN 07/21/20 07/23/20 Unknown furosemide [Lasix] 20 mg PO QAM 07/21/20 07/23/20 07/23/20 paroxetine HCl 20 mg PO QAM 07/21/20 07/23/20 07/23/20 saxagliptin [Onglyza] 5 mg PO QAM 07/21/20 07/23/20 07/23/20 sildenafil 25 - 125 mg PO DAILY PRN 07/21/20 07/23/20 Unknown tiotropium bromide [Spiriva with 1 cap INHALATION QAM 07/21/20 07/23/20 07/23/20 HandiHaler] docusate sodium [Colace] 100 mg PO BID #60 cap 07/22/20 07/23/20 07/23/20 oxycodone 5 mg PO Q6H PRN #14 tab 07/22/20 07/23/20 07/23/20 08:00 sennosides [Senokot] 8.6 mg PO HS #30 tab 07/22/20 07/23/20 07/22/20 sacubitril 24 mg-valsartan 26 mg 1 tab PO BID #180 tab 07/23/20 07/23/20 Unknown tablet Active Medications Generic Name Dose Route Start Last Admin Trade Name Susanna PRN Reason Stop Dose Admin Aspirin 40.5 mg 07/24/20 09:00 07/24/20 09:09 Aspirin 81 Mg Chew PO 08/23/20 08:59 40.5 mg QAM COLLIN Administration Atorvastatin Calcium 40 mg 07/23/20 21:00 07/23/20 21:12 Atorvastatin 40 Mg Tab PO 08/22/20 20:59 40 mg HS COLLIN Administration Buspirone HCl 30 mg 07/23/20 14:00 07/23/20 22:22 Buspirone 15 Mg Tab PO 08/22/20 13:59 Not Given TID COLLIN Docusate Sodium 100 mg 07/23/20 21:00 07/24/20 09:08 Docusate Sodium 100 Mg Cap PO 08/22/20 20:59 100 mg BID COLLIN Administration Donepezil HCl 10 mg 07/24/20 09:00 07/24/20 09:08 Donepezil Hcl 10 Mg Tab PO 08/23/20 08:59 10 mg QAM COLLIN Administration Duloxetine HCl 60 mg 07/24/20 09:00 07/24/20 09:09 Duloxetine Hcl 60 Mg Cap PO 08/23/20 08:59 60 mg QAM COLLIN Administration Finasteride 5 mg 07/24/20 09:00 07/24/20 09:07 Finasteride 5 Mg Tab PO 08/23/20 08:59 5 mg QAM COLLIN Administration Furosemide 20 mg 07/24/20 09:00 07/24/20 09:09 Furosemide 20 Mg Tab PO 08/23/20 08:59 20 mg QAM COLLIN Administration Gabapentin 300 mg 07/23/20 17:00 07/24/20 09:08 Gabapentin 300 Mg Cap PO 08/22/20 16:59 300 mg QID COLLIN Administration Insulin Aspart 0 units 07/23/20 17:00 07/24/20 09:20 Insulin Aspart 100 Units/Ml 3 Ml Pen SC 08/22/20 16:59 6 units ACHS COLLIN Administration Insulin Glargine 15 units 07/24/20 09:00 07/24/20 09:18 Insulin Glargine Solostar 100 Units/Ml 3 Ml Pen SC 08/23/20 08:59 15 units BID COLLIN Administration Protocol Lamotrigine 200 mg 07/23/20 21:00 07/23/20 21:12 Lamotrigine 100 Mg Tab PO 08/22/20 20:59 200 mg HS COLLIN Administration Lidocaine 1 patch 07/23/20 17:30 07/24/20 09:34 Lidocaine 5% 1 Patch TD 08/22/20 17:29 1 patch DAILY COLLIN Administration Memantine 5 mg 07/23/20 21:00 07/24/20 09:10 Memantine Hcl 5 Mg Tab PO 08/22/20 20:59 5 mg BID COLLIN Administration Metoprolol Tartrate 12.5 mg 07/23/20 21:00 07/24/20 09:08 Metoprolol Tartrate 25 Mg Tab PO 08/22/20 20:59 12.5 mg BID COLLIN Administration Miscellaneous 1 ea 07/23/20 21:00 07/23/20 22:23 Remove Lidoderm Patch N/A 08/22/20 20:59 Not Given DAILY@2100 COLLIN Oxycodone HCl 5 mg 07/23/20 14:10 07/23/20 21:25 Oxycodone Hcl Ir 5 Mg Tab (Immediate Release) PO 08/06/20 14:09 5 mg Q6H PRN Administration Pain Paroxetine HCl 20 mg 07/24/20 09:00 07/24/20 09:10 Paroxetine Hcl 20 Mg Tab PO 08/23/20 08:59 20 mg QAM COLLIN Administration Sacubitril/Valsartan 1 tab 07/23/20 21:00 07/24/20 09:07 Sacubitril-Valsartan 24-26 Mg Tab PO 08/22/20 20:59 1 tab BID COLLIN Administration Sennosides 8.6 mg 07/23/20 21:00 07/23/20 21:12 Senna 8.6 Mg Tab PO 08/22/20 20:59 8.6 mg HS COLLIN Administration Umeclidinium [place] 1 puffs 07/24/20 09:00 07/24/20 09:10 Umeclidinium [place] 62.5mcg/Blister 7 Puffs/Inhaler INH 08/23/20 08:59 1 puffs QAM COLLIN Administration Past Medical History Medical History (Updated 07/24/20 @ 10:14 by Aldo Haji MD) Anemia Aneurysm of ascending aorta Asthma with COPD Bicuspid aortic valve replaced with bioprosthetic valve BPH (benign prostatic hyperplasia) CAD (coronary artery disease) Carotid artery stenosis CKD (chronic kidney disease) COPD (chronic obstructive pulmonary disease) Dementia Heart failure EF 35-40% HTN (hypertension), benign Hyperlipidemia Lumbar radiculopathy Myelodysplastic syndrome Myocardial infarction Pacemaker Placed after AVR due to complete heart block Renal insufficiency TIA (transient ischemic attack) Past Family History Family History Sister Anxiety Brother Alcohol abuse Father Cardiac disorder Myocardial infarction Mother Depression Kidney disease Lung disease Stroke Other Family history non-contributory Denies family history of Ovarian cancer Prostate cancer Breast cancer Colorectal cancer Past Surgical History Surgical History (Updated 07/24/20 @ 10:04 by Aldo Haji MD) H/O cardiac catheterization H/O endoscopic retrograde cholangiopancreatography History of back surgery 05/10/2020 Grade 2 view with Mac 3 blade History of colonoscopy History of repair of rotator cuff History of tonsillectomy Hx of cholecystectomy S/P aortic valve replacement S/P coronary artery stent placement S/P right knee surgery Status post cardiac pacemaker procedure for h/o complete heart block s/p his AVR Social History Smoking Status: Never smoker tobacco type: cigarettes Smoking cigarettes per day: Random cigarette usage Hx Alcohol Use: Yes Alcohol type: hard liquor alcohol intake frequency: holidays/special occasions only Hx Substance Use: No Physical Exam Vital Signs Last Vital Signs Temp 36.7 C 07/24/20 06:40 Pulse 93 H 07/24/20 06:40 Resp 18 07/24/20 06:40 BP 119/79 07/24/20 06:40 Pulse Ox 94 07/24/20 06:40 Testing Laboratory Results 07/24/20 05:40 07/24/20 05:40 Hemoglobin A1c 8.1 % (4.5-5.6) H 07/24/20 05:40 Urine Color Yellow 07/23/20 11:44 Urine Appearance Clear (Clear) 07/23/20 11:44 Urine pH 5.0 (4.5-7.5) 07/23/20 11:44 Ur Specific [place] 1.019 (1.000-1.030) 07/23/20 11:44 Urine Protein Negative (Negative) 07/23/20 11:44 Urine Glucose (UA) Trace (Negative) H 07/23/20 11:44 Urine Ketones Negative (Negative) 07/23/20 11:44 Urine Nitrite Negative (Negative) 07/23/20 11:44 Ur Leukocyte Esterase Negative (Negative) 07/23/20 11:44 07/24/20 07/24/20 08:06 02:45 POC Glucose 120 H 109 H Electrocardiogram Date: 05/21/20 A sensed, V paced, rate 92 Echocardiogram Date: 07/16/20 EF: 35-40 LV Function: dysfunctional (inferior hypokinesis) Other Findings: + LVH (mild) Valvular Disease: + MR (mild ) and + pertinent finding (bioprosthetic)
[2020-07-24] MEDS: busPIRone 15 MG TAB PO SCH ×3 (10:33→21:28)
[2020-07-24] MEDS: FLUTICASONE/VILANTEROL 200/25MCG 14 PUFFS/INHALER INH SCH (10:34)
--- NOTE | 2020-07-24 10:50 | Pharmacy Report ---
Pharmacy Glycemic Short Note 2 - Date of Service July 24, 2020 - Glycemic Short BSG Results (Last 24 hours): 07/23/20 07/23/20 07/23/20 11:04 14:35 17:07 Glucose 279 H POC Glucose 207 H 229 H 07/23/20 07/24/20 07/24/20 20:44 02:45 05:40 Glucose 123 H POC Glucose 229 H 109 H 07/24/20 08:06 Glucose POC Glucose 120 H OUTPATIENT ANTIDIABETIC REGIMEN: * Lantus 30 units SC BID * Saxagliptin 5 mg PO qAM * Glimepiride 4 mg PO BID * HbA1c: 8.1% (07/24/20) ASSESSMENT: * SUSANA is a 75 year old male with recurrent herniation of lumbar disc * Plan is for decompression/fusion in OR tomorrow - will be NPO after midnight in anticipation for surgery * BSGs elevated in the 200s yesterday * Received 40 units of basal (30 units of which were prior to admission) and 17 units of prandial/correctional * Elevated BSGs likely due in part to IV dexamethasone * Historically, patient has required less insulin as an inpatient compared to outpatient regimen PLAN FOR INPATIENT GLYCEMIC CONTROL: * Hold outpatient oral diabetes medications * Basal insulin * Lantus 15 units SQ x 1 this morning * Lantus scale to provide 0-15 units this evening (see EHR for details) * Will reassess basal in AM given NPO status * Bolus insulin * NovoLog per scale ACHS or Q6hrs while NPO * Goal Range: Low 110 mg/dL - High 140 mg/dL * Correction Factor: 20 mg/dL/unit * Nutritional / Prandial insulin per carb ratio of 1 unit per 6 grams CHO consumed
[2020-07-24] MEDS: oxyCODONE HCL IR 5 MG TAB (IMMEDIATE RELEASE) PO PRN (12:46)
--- NOTE | 2020-07-24 15:52 | Hospitalist Progress Note ---
Date of Service July 24, 2020 Assessment & Plan (1) Intractable back pain: Dr. Brown is scheduled for surgery on 1227 for an L2-3, 3 4 decompression and fusion with instrumentation continue with parenteral pain medications scheduled Tylenol and topical pain medicines as needed (2) CAD, multiple vessel: Has a history ofMultivessel CAD s/p Multiple PCI's, Bicuspid Aortic Valve s/p Bioprosthetic AVR 2011, Ascending Aortic Aneurysm, Complete Heart Block s/p Medtronic Dual Chamber Pacemaker 2011, COPD, Dyslipidemia, Hypertension, Prior Pulmonary Emboli following AVR surgery 2011, Carotid Artery Disease, COVID 27 March 2020 underwent surgery in May without an issue, he has a bioprosthetic aortic valve. He remains on metoprolol tartrate 12.5 twice daily aspirin will be held and continue risk reduction with atorvastatin 40 (3) COPD (chronic obstructive pulmonary disease): History of COPD continuing on albuterol ProAir desonideformoterol is stable at this time (4) CKD (chronic kidney disease): Chronic kidney disease stage III with care with dosing and using medications (5) Diabetes mellitus type 2, controlled: Patient typically on glimepiride plus alogliptin, these are held as can he is converted to his insulin sliding scale with a carbohydrate conservative diet (6) Pacemaker: (7) BPH (benign prostatic hyperplasia): Patient remains on finasteride with concerns for postoperative Hudson catheter Admission and Anticipated Discharge Date Admission Date: July 23, 2020 Subjective Patient's pain is improved with parenteral opiates but is persistent. Dr. Brown has seen the patient and feels there is a significant disc herniation and plans for surgery on 07/25/2020 Review of Systems Review of Systems: Mild to moderate distress and fatigue no headache, blurry or double vision no speech or swallowing issues no chest pain, pressure or palpitations no shortness of breath, cough or wheezes no abdominal pain, nausea or vomiting, diarrhea or constipation no dysuria, hematuria or frequency no focal joint pain or swelling Radicular back pain on the right radiating down to his right thigh and groin no bruising, bleeding or rashes no focal signs of weakness or numbness or altered sensation no complaints of anxiety or depression.. Physical Exam Physical Exam: The patient appeared with reasonable pain control but in mild discomfort Vital signs as documented. Head exam is normocephalic atraumatic no scleral icterus Neck is without JVD, thyromegaly, or carotid bruits. Lungs are with decreased breath sounds but no overt loss or wheeze Cardiac exam, Rhythm is regular.. No murmurs, rubs or gallops. Abdominal exam reveals normal bowel sounds, soft non tender, no masses Extremities are nonedematous and both pedal pulses are present Neurologic exam is alert and oriented, no focal loss of strength or sensation Skin is without bruises or rashes Psychologically is without concerns for anxiety or depression. Results & Data Results & Data ([facility]) Vital Signs (Past 12 Hours) Vital Signs Temp Pulse Resp BP Pulse Ox 07/24/20 15:21 97.7 F 86 18 107/57 L 92 07/24/20 06:40 98.1 F 93 H 18 119/79 94 PG Care Time/CCT Total # of Minutes Spent Total Time Spent with Patient: Total time spent is greater than 50% in coordination of care (as documented) at patient's floor/unit and/or counseling patient: Coding Level of Care Code 07346 Subseq Hosp Care Lvl 2 Diagnoses Intractable back pain M54.9 CAD, multiple vessel I25.10 COPD (chronic obstructive pulmonary disease) J44.9 CKD (chronic kidney disease) N18.9 Diabetes mellitus type 2, controlled E11.9 Pacemaker Z95.0 BPH (benign prostatic hyperplasia) N40.0
[2020-07-24] MEDS: lamoTRIgine 100 MG TAB PO SCH (21:25)
[2020-07-24] MEDS: ATORVASTATIN 40 MG TAB PO SCH (21:28)
[2020-07-24] MEDS: SENNA 8.6 MG TAB PO SCH (21:28)
[2020-07-25] MEDS ORDERED: Nursing to Pharmacy Communication SCH (00:45)
[2020-07-25] MEDS ORDERED: CLINDAMYCIN 600 MG/54 ML BAG IV SCH (06:00)
[2020-07-25] MEDS: INSULIN ASPART 100 UNITS/ML 3 ML PEN SC SCH ×4 (06:00→23:58)
[2020-07-25] MEDS ORDERED: BUPIVACAINE/EPINEPHRINE 0.5% MPF 1:200,000 30 ML VIAL ONE ×2 (07:55→12:23)
[2020-07-25] MEDS ORDERED: BACITRACIN INJ 50,000 UNIT VIAL ONE ×2 (07:55→12:23)
[2020-07-25] MEDS ORDERED: INSULIN GLARGINE SOLOSTAR 100 UNITS/ML 3 ML PEN SC SCH (08:00)
[2020-07-25] MEDS ORDERED: fentaNYL citrate 100 MCG/2 ML VIAL ONE (08:04)
--- NOTE | 2020-07-25 08:39 | History & Physical Bridge Note ---
Date of Service July 25, 2020 History & Physical Bridge Note I have examined the patient, reviewed the History & Physical and in the interval since the performance of the History & Physical I have noted the following changes of clinical significance: no changes noted
--- NOTE | 2020-07-25 08:56 | Hospitalist Progress Note ---
Date of Service July 25, 2020 Assessment & Plan (1) Postoperative hypotension: Patient had crystalloid infusion with standing blood pressure is elevated. Checking laboratories for acute blood loss anemia and tissue perfusion with lactic acid postoperatively transferred to telemetry for further evaluation (2) Intractable back pain: Dr. Brown completed surgery on 07/25 for an L2-3, 3 4 decompression and fusion with instrumentation continue with parenteral pain medications scheduled Tylenol and topical pain medicines as needed (3) CAD, multiple vessel: Has a history ofMultivessel CAD s/p Multiple PCI's, Bicuspid Aortic Valve s/p Bioprosthetic AVR 2011, Ascending Aortic Aneurysm, Complete Heart Block s/p Medtronic Dual Chamber Pacemaker 2011, COPD, Dyslipidemia, Hypertension, Prior Pulmonary Emboli following AVR surgery 2011, Carotid Artery Disease, COVID 27 March 2020 underwent surgery in May without an issue, he has a bioprosthetic aortic valve. He remains on metoprolol tartrate 12.5 twice daily plus Entresto and aspirin will be held and continue risk reduction with atorvastatin 40 patient will be followed by cardiology Dr. Saba (4) COPD (chronic obstructive pulmonary disease): History of COPD continuing on albuterol ProAir desonideformoterol is stable at this time (5) CKD (chronic kidney disease): Chronic kidney disease stage III with care with dosing and using medications (6) Diabetes mellitus type 2, controlled: Patient typically on glimepiride plus alogliptin, these are held as can he is converted to his insulin sliding scale with a carbohydrate conservative diet (7) Pacemaker: (8) BPH (benign prostatic hyperplasia): Patient remains on finasteride with concerns for postoperative Hudson catheter Admission and Anticipated Discharge Date Admission Date: July 23, 2020 Subjective Status post L2-3 lumbar decompression and fusion with instrumentation surgery on 07/25/2020 Post procedure patient had some issues with hypotension felt to be from volume loss. Patient's blood pressure required steroid volume expansion and currently is stabilized in the 90/50 range. Patient be transferred to the PCU with telemetry for further monitoring and stat laboratories will be checked Review of Systems Review of Systems: Mild to moderate distress and fatigue no headache, blurry or double vision no speech or swallowing issues no chest pain, pressure or palpitations no shortness of breath, cough or wheezes no abdominal pain, nausea or vomiting, diarrhea or constipation no dysuria, hematuria or frequency no focal joint pain or swelling Radicular back pain on the right radiating down to his right thigh and groin no bruising, bleeding or rashes no focal signs of weakness or numbness or altered sensation no complaints of anxiety or depression.. Physical Exam Physical Exam: The patient appeared with reasonable pain control but in mild discomfort Vital signs as documented. Head exam is normocephalic atraumatic no scleral icterus Neck is without JVD, thyromegaly, or carotid bruits. Lungs are with decreased breath sounds but no overt loss or wheeze Cardiac exam, Rhythm is regular.. No murmurs, rubs or gallops. Abdominal exam reveals normal bowel sounds, soft non tender, no masses Extremities are nonedematous and both pedal pulses are present Neurologic exam is alert and oriented, no focal loss of strength or sensation Skin is without bruises or rashes Psychologically is without concerns for anxiety or depression. Results & Data Results & Data ([facility]) Vital Signs (Past 12 Hours) Vital Signs Temp Pulse Resp BP Pulse Ox 07/25/20 07:04 98.4 F 75 16 91/62 L 95 07/24/20 23:59 88 98/52 L 07/24/20 23:53 98.2 F 88 16 83/50 L 93 07/24/20 21:20 89 131/69 PG Care Time/CCT Total # of Minutes Spent Total Time Spent with Patient: Total time spent is greater than 50% in coordination of care (as documented) at patient's floor/unit and/or counseling patient: Coding Level of Care Code 47905 Subseq Hosp Care Lvl 3 Diagnoses Postoperative hypotension I95.89 Intractable back pain M54.9 CAD, multiple vessel I25.10 COPD (chronic obstructive pulmonary disease) J44.9 CKD (chronic kidney disease) N18.9 Diabetes mellitus type 2, controlled E11.9 Pacemaker Z95.0 BPH (benign prostatic hyperplasia) N40.0
--- NOTE | 2020-07-25 10:17 | Pharmacy Report ---
Pharmacy Glycemic Short Note 2 - Date of Service July 25, 2020 - Glycemic Short BSG Results (Last 24 hours): 07/24/20 07/24/20 07/24/20 11:43 17:18 20:48 POC Glucose 134 H 191 H 98 07/25/20 07/25/20 07/25/20 00:38 05:44 08:15 POC Glucose 112 H 142 H 127 H OUTPATIENT ANTIDIABETIC REGIMEN: * Lantus 30 units SC BID * Saxagliptin 5 mg PO qAM * Glimepiride 4 mg PO BID * HbA1c: 8.1% (07/24/20) ASSESSMENT: 07/25/20: * Patient is currently receiving an average of 53 units of insulin per day * 15 units of basal insulin * 38 units of prandial/correctional insulin * BSGs ranging 98-191 mg/dl over the past 24hrs * Changes needed for the next 24hrs: * AM Fasting BSG = 142 mg/dl. This is near goal range for inpatient targets. Pt is NPO for surgery today. Will continue with 15 units of basal this AM and re-evaluate PM dosing - will dose based on BSG. * Total daily dose = is weighted towards prandial insulin. Basal insulin may need increased slightly but BSGs are in goal range- will continue to titrate based on BSG trends. * RK is a 75 year old male with recurrent herniation of lumbar disc * Plan is for decompression/fusion in OR tomorrow - will be NPO after midnight in anticipation for surgery * BSGs elevated in the 200s yesterday * Received 40 units of basal (30 units of which were prior to admission) and 17 units of prandial/correctional * Elevated BSGs likely due in part to IV dexamethasone * Historically, patient has required less insulin as an inpatient compared to outpatient regimen PLAN FOR INPATIENT GLYCEMIC CONTROL: * Hold outpatient oral diabetes medications * Basal insulin * Lantus 15 units SQ x 1 this morning for NPO status * Lantus scale to provide 0-15 units this evening (see EHR for details) * Bolus insulin: no change * NovoLog per scale ACHS or Q6hrs while NPO * Goal Range: Low 110 mg/dL - High 140 mg/dL * Correction Factor: 20 mg/dL/unit * Nutritional / Prandial insulin per carb ratio of 1 unit per 6 grams CHO consumed
[2020-07-25] MEDS: UMECLIDINIUM BROMIDE 62.5MCG/BLISTER 7 PUFFS/INHALER INH SCH (10:30)
[2020-07-25] MEDS: LIDOCAINE 5% 1 PATCH TD SCH (10:30)
[2020-07-25] MEDS: FLUTICASONE/VILANTEROL 200/25MCG 14 PUFFS/INHALER INH SCH (10:30)
[2020-07-25] MEDS ORDERED: CLINDAMYCIN 600 MG/54 ML D5W IV ONE (12:12)
[2020-07-25] MEDS ORDERED: HYDROmorphone INJ 1 MG/ML SYRINGE IV PRN (12:35)
[2020-07-25] MEDS ORDERED: ONDANSETRON INJ 2 MG/ML 2 ML VIAL IV PRN ×2 (12:35→19:25)
[2020-07-25] MEDS ORDERED: ATROPINE SULFATE 0.1 MG/ML 10ML SYR IV PRN (12:35)
[2020-07-25] MEDS ORDERED: LIDOCAINE HCL 2% 2 ML VIAL/AMP(20MG/ML) INFIL ONE (13:57)
[2020-07-25] MEDS ORDERED: LARYING-O-JET KIT (LTA) ONE (13:57)
[2020-07-25] MEDS ORDERED: ONDANSETRON INJ 2 MG/ML 2 ML VIAL ONE (13:57)
[2020-07-25] MEDS ORDERED: PROPOFOL IV EMULSION 10 MG/ML 20 ML VIAL IV ONE (13:57)
[2020-07-25] MEDS ORDERED: DEXAMETHASONE SOD INJ 4 MG/ML VIAL ONE (13:57)
[2020-07-25] MEDS ORDERED: ROCURONIUM BROMIDE 10 MG/ML 5 ML VIAL IV ONE (13:57)
[2020-07-25] MEDS ORDERED: FLOSEAL HEMOSTATIC MATRIX 10ML TOP ONE (14:47)
[2020-07-25] MEDS ORDERED: NEOSTIGMINE METHYLSULFATE 1 MG/ML 10ML VIAL ONE (14:52)
[2020-07-25] MEDS ORDERED: ESMOLOL HCL INJ 10 MG/ML 10ML VIAL IV ONE ×2 (14:52→15:09)
--- NOTE | 2020-07-25 14:55 | Operative Report ---
Post Operative Report Pre & Post Diagnosis Operation Date: 07/25/20 08:30 Pre-Op Diagnosis: Recurrent herniation of lumbar disc Post-Op Diagnosis: Recurrent herniation of lumbar disc I identified the patient and participated in the time-out.: Yes Procedure Operation Date: 07/25/20 08:30 Actual Procedures #1 revision decompression with medial facetectomy foraminotomy L2-3 L3-4. #2 posterior spinal fusion L2-3 L3-4. #3 placement posterior instrumentation L2-3 L3-4. #4 interbody fusion L2-3. #5 placement peek cage 11 x 26 mm at L2-3. #6 placement locally harvested morselized autograft in the posterior lateral gutters. #7 placement infuse collagen sponge, master graft in the posterior lateral gutters and ostium interbody space. Surgeon Shaheed Brown, Leveler Helper Maria Victoria Colvin Estimated Blood Loss 100 Findings Consistent with Post-Op Diagnosis Specimens None Indications This is a 75-year-old male who presents with recurrent disc herniation and severe radiculopathy and weakness affecting the right lower extremity. Subsequently we recommended urgent decompression fusion. Description of Procedure Patient was met with identified informed consent obtained. Patient was then taken to the operative suite underwent an patient placed in a prone position the Lester table on top Chava frame. All bony prominences well-padded eyes inspected to ensure no external pressure placed upon the. This point the lumbar spine was prepped and draped no sterile fashion. Sharp dissection with assistance of Bovie cartilage from down to and exposing the remaining lamina and transverse processes of L2-L3-L4 bilaterally. They are formed revision complete laminectomy of L2 and L3 including medial facetectomies and foraminotomies bilaterally. And then identified massive disc condition from L2-3 level that migrated caudally distal to the L3 pedicle. After decompression pedicle screws were placed in L2-L3-L4 bilaterally with assistance of fluoroscopy the proper sized annette placed. By way of a transforaminal approach on the right a complete discectomy of L to 3 was performed endplates curetted to subcortically bone and a 11 x 26 mm peek cage filled with osteobone graft tapped in position. The rods were then locked into final position bilaterally. The transverse processes of L2-L3-L4 were then burred to subcortical being bone. Infuse collagen sponge mass graft local autograft was placed in the posterior lateral gutters. 15 round NASEEM drain inserted. The incision was then closed with 1 Vicryl the fascia 2-0 Vicryl subcutaneously and 4 Monocryl for final skin closure. Steri-Strip sterile dressings placed. Patient will continue to PACU stable condition. Pl ease note spinal cord monitoring was utilized at the procedure no changes noted. Lastly Maria Victoria Colvin was present at the entire surgery involved in patient positioning complex portions of the surgery and final skin closure. I attest to the content of the Intraoperative Record and any orders documented therein. Any exceptions are noted below.
--- NOTE | 2020-07-25 15:01 | Fluoroscopy Report ---
[place] lumbar spine 2-3V CLINICAL HISTORY: L2-L4 DECOMPRESSION AND FUSION COMPARISON STUDY: Lumbar spine CT July 21, 2020. FLUOROSCOPY TIME: 17 seconds. FLUOROSCOPIC IMAGES: 2 FINDINGS: These images demonstrate L2-L3 discectomy with interbody spacer placement. Note is made of bilateral pedicle screws at the L2, L3 and L4 levels with interconnecting rods. The hardware is intac t. There are no unexpected radiopaque foreign bodies. IMPRESSION: Fluoroscopy provided during L2-L3 discectomy and L2-L4 bilateral pedicle screw fusion. ACT 112: Negative or not required by law. Electronically signed by: Duncan Fonseca M.D. 07/25/2020 2:59 PM
[2020-07-25] MEDS: GABAPENTIN 300 MG CAP PO SCH ×4 (15:06→22:02)
[2020-07-25] MEDS: busPIRone 15 MG TAB PO SCH ×3 (15:06→22:03)
[2020-07-25] MEDS: SACUBITRIL-VALSARTAN 24-26 MG TAB PO SCH (15:06)
[2020-07-25] MEDS: DOCUSATE SODIUM 100 MG CAP PO SCH ×2 (15:06→22:02)
[2020-07-25] MEDS: MEMANTINE HCL 5 MG TAB PO SCH ×2 (15:06→22:04)
[2020-07-25] MEDS: METOPROLOL TARTRATE 25 MG TAB PO SCH ×2 (15:06→22:07)
--- NOTE | 2020-07-25 17:36 | Anesthesiology Progress Note ---
Date of Service July 25, 2020 Anesthesia Post Procedure Vital Signs Vital Signs: Temp Pulse Pulse Resp BP BP Pulse Ox 07/25/20 17:15 106 H 16 89/57 L 99 07/25/20 17:05 105 H 15 77/54 L 96 07/25/20 16:55 106 H 17 79/51 L 100 07/25/20 16:45 112 H 16 76/40 L 79/56 L 98 07/25/20 16:35 111 H 17 85/44 L 79/57 L 97 07/25/20 16:25 108 H 19 82/58 L 74/41 L 96 07/25/20 16:15 110 H 12 83/45 L 79/58 L 94 07/25/20 16:05 110 H 20 78/41 L 88/57 L 91 07/25/20 15:55 116 H 23 66/50 L 75/50 L 89 L 07/25/20 15:45 121 H 12 79/53 L 70/40 L 90 07/25/20 15:35 126 H 20 79/58 L 93 07/25/20 15:25 117 H 15 103/86 97 07/25/20 15:15 121 H 13 101/72 99 07/25/20 15:08 36.3 C L 128 H 25 H 103/70 100 07/25/20 11:15 36.6 C 89 20 98/67 L 93 07/25/20 11:08 36.6 C 83 16 112/72 93 07/25/20 07:04 36.9 C 75 16 91/62 L 95 07/24/20 23:59 88 98/52 L 07/24/20 23:53 36.8 C 88 16 83/50 L 93 07/24/20 21:20 89 131/69 Pain Intensity Right Hip: Pain Intensity: 2 Back: Pain Intensity: 6 Transfer of Care Handoff Completed per policy Notes Mental Status: alert / awake / arousable Patient Amnestic to Procedure: Yes Nausea / Vomiting: adequately controlled Pain: adequately controlled Airway Patency, RR, SpO2: stable & adequate BP & HR: stable & adequate and see Notes below Hydration State: stable & adequate Anesthetic Complications: no major complications apparent and Pt Satisfied with anesthetic care Notes: The patient tolerated the surgery with Dr. Ascencio as his a nesthesiologist. In the PACU he was wide awake and comfortable but noted to be signficantly hypotensive with SBP in the 60s and 70s with HR in the 100s. He was monitored with an arterial line and NIBP. Dr. Saba from cardiology was consulted and came to evaluate the patient. He stated that if the SBP remained below 80 then the patient would need to go to the ICU but could go to the PCU with SBP in the high 80s to 90s. The patient was given a bolus of 500 ml IV. The patient's SBP came up to 90. I spoke with Dr. Shane who will follow the patient in the PCU.
--- NOTE | 2020-07-25 18:18 | Cardiology Consultation ---
Date of Consultation July 25, 2020 Assessment & Plan (1) Postoperative hypotension: (2) S/P coronary artery stent placement: (3) CAD, multiple vessel: (4) CARTER (dyspnea on exertion): (5) Pacemaker: (6) S/P aortic valve replacement with bioprosthetic valve: (7) Third degree AV block: (8) Cardiomyopathy: ASSESSMENT/PLAN: 1. Postoperative hypotension: He has consistently been hypotensive in the PACU following his back surgery today. When reviewing records, it looks as though his loop diuretic has only been started the past few days as he was not listing this is a medication during his July cardiology visit. Also, Entresto was started this admission as he did not start taking as an outpatient prior to his hospitalization. Therefore, he is likely hypovolemic (consistent with exam) and vaso dilated. Recommended another L of normal saline while in the PACU. Since then, his blood pressure has improved with his last 2 systolic blood pressures being 89, and 92 mmHg, respectively. Continue with this third L of fluid and support blood pressure as appropriate. Discontinue Entresto and further diuretic at this time. 2. Multivessel CAD s/p PCI: No angina. Aspirin 81 mg daily is indicated however he prefers to take half of that dose due to bleeding. Continue beta- nica if blood pressure allows. Recommend succinate in place of tartrate prior to discharge given reduced LV systolic function. Continue high-intensity statin therapy. 3. Cardiomyopathy: Newly found last week in outpatient echo for perceived worsening dyspnea with exertion. Etiology not certain but could be due to RV pacing versus ischemic etiology. Cannot exclude other causes however these appear to be more likely. This can be further evaluated as an outpatient with consideration of biventricular pacing and/or cardiac catheterization to evaluate coronaries. Entresto was recently prescribed and not started until this hospitalization. Discontinue Entresto for now due to postoperative hypotension. Metoprolol succinate in place of tartrate prior to discharge. 4. Third-degree AV block s/p dual chamber pacemaker: Followed by electrophysiology. 5. Bicuspid aortic valve s/p bioprosthetic aortic valve replacement: Appropriately functioning on July 2020 echo. SBE prophylaxis. 6. Thoracic aortic aneurysm: Asymptomatic. Continue beta-nica as tolerated. Avoid heavy lifting for which the Valsalva maneuver is required. 7. Preoperative evaluation: Due to schedule, he was unable to be seen until after surgery. A conversation was held with Dr. Brown via telephone however prior to surgery. It was recommended at that time that he should be treated as high risk as the etiology for his cardiomyopathy has not yet been defined. When asked if this surgery was urgent, Dr. Brown agreed that it was and therefore it was recommended by myself that surgery not be postponed for ischemic evaluation. 8. Disposition: During my evaluation, he was critically ill with systolic blood pressures consistently in the 70s to 80s. It was recommended that he be transferred to the ICU unless blood pressure stabilizes with additional fluid bolus. His daughter, Aaliyah, was contacted personally via telephone to update her with today's events as per patient request. Patient care discussed with Dr. Ascencio of the Anesthesia Department in the PACU and also Dr. Carter of the primary hospitalist service. Patient care was discussed preoperatively with Dr. Brown of Orthopedic surgery. Cardiology will continue to follow. 50 minutes of critical care time was spent treating this patient with significant postoperative hypotension, including coordinating care and co unseling patient and his family via telephone. Thank you for allowing me to participate in the care of your patient. Please call for any other questions or concerns. Sincerely, Tanner Saba M.D. History of Present Illness Reason for Consultation: Preop cardiac evaluation Requesting Physician: Dr. Brown Attending Physician: Lam Carter MD History of Present Illness Mr. Wright is a very pleasant 75-year-old gentleman with a history significant for multivessel CAD status post multiple PCI, bicuspid aortic valve with aortic stenosis status post bioprosthetic aortic valve replacement, ascending aortic aneurysm, complete heart block following AVR s/p pacemaker, cardiomyopathy, COPD, dyslipidemia, and hypertension. He also experience pulmonary emboli foll owing bypass surgery in 2011. He has had the following studies/procedures: 1. Cardiac catheterization 1998 following [place]. 2. Multiple PCI involving mid LAD, mid circumflex, OM1, RCA. These were done at different times at different facilities from [id number]. 3. Bioprosthetic aortic valve replacement 12/14/2011: Minimally invasive aortic valve replacement with 23 mm Joni-Riley pericardial valve. Had acute postop blood loss anemia from post pump coagulopathy, and therefore chest was not closed until 12/15/2011. Complete heart block ensued following surgery. 4. Pacemaker placement 12/18/2011 at [facility]: Dual-chamber [employer]. 5. Cardiac catheterization 11/13/2011: Mid LAD stent 20% in stent restenoses. Proximal OM1 stent with less than 10% in stent restenoses. Mid OM1 40%. Distal OM1 superior branch ostial 70%. Dominant RCA. Proximal RCA stent 20%. Mid RCA 20%. Distal RCA 20%. PCWP 7. PA pressure 25/8. Cardiac index via thermodilution 2.4 liters/min/m2. 6. Echo 08/20/2016: Normal LV size and systolic function. EF 60-65%. Hypokinesis of the mid inferior wall. Dyskinesis distal inferior wall. Mild LVH. Mild left atrial dilation. Mild MR. Appropriately functioning bioprosthetic aortic valve. 7. CT chest 09/02/2016: Ascending thoracic aortic aneurysm 4.3 cm. No dissection. Bilateral lower lobe bronchial wall thickening mucous plugging. Multiple right lower lobe pulmonary nodules and 22 mm pleural based opacity 8. Nuclear stress 09/02/2016: No significant ischemic changes. Prior RCA territory and apical infarcts with possibility of circumflex territory as well. Inferior, inferoseptal, inferolateral, and apical fixed defect. EF 56%. Akinesis of the apex. Hypokinesis of the inferior septum and inferior wall. No chest pain. 9. Carotid duplex 10/30/2016: Moderate atherosclerotic plaque bilaterally. 10. CTA aorta 10/04/2017: Stable ascending thoracic aortic aneurysm, distal to sinotubular junction measuring 4.3 x 4.3 cm. No dissection. Mild emphysema. Granulomatous disease. 11. Echo 08/16/2018: Mildly dilated LV with low-normal systolic function. EF 50-55%. Septal motion consistent with pacemaker. Mid to distal inferior wall appears hypokinetic to akinetic. Moderate LVH. Mild MR. Appropriately functioning bioprosthetic aortic valve. Normal RVSP. 12. CT chest 11/29/2018: Noncontrast. Ascending aorta 4.5 cm at the level of main pulmonary artery. Mild emphysema. 13. CT chest 02/09/2020: Ascending thoracic aorta 4.4 cm. Mild emphysema. 14. Echo 07/16/2020: Mildly dilated LV with moderately reduced systolic function. Estimated EF 35-40%. Septal motion consistent with pacemaker. Mid to distal inferior wall and distal inferoseptum appear severely hypokinetic to akinetic. Otherwise, mild global hypokinesis. Mild LVH. Mild left atrial dilation. Appropriately functioning bioprosthetic aortic valve. Mild MR. Normal RVSP. Compared to prior study on 08/16/2018, LV systolic function has declined. He was admitted to [facility] on 07/23/2020 for back pain with radicular symptoms. He has undergone back surgery in May of 2020 with lumbar decompression and bilateral medial fasciotomies and foraminotomies of L2-3 and L3-L4. Earlier this week, symptoms significantly worsened to the point that any attempt at movement was causing severe pain. He was seen by Dr. Brown and was deemed to have recurrent herniation of his lumbar disc and recommended surgical correction. Cardiology was initially consulted free preoperative evaluation. Recent cardiac evaluation in the outpatient setting on 07/10/2020 by Mr. Bear reported worsening dyspnea with exertion in addition to his chronic dyspnea with exertion. His dyspnea with exertion has been more significant ever since coyle 19 infection in March of 2020. He reported to Marianela at that time that his dyspnea with exertion seemed even worse following back surgery in May of 2020. This prompted echocardiogram which was performed last week. Mr. Bear than prescribed Entresto however he did not take the medication as an outpatient as he barely obtain the medication prior to his hospitalization. He did receive Entresto for a total of 3 doses while hospitalized, not including this morning. I was made aware of this this morning. Dr. Brown was personally called this morning and it was recommended that Mr. Wright was high risk for surgery due to dyspnea with exertion and reduced LV systolic function that was noted on 07/16/2020 echo done as an outpatient. Once available to present to the bedside, it was noted that Mr. Wright was already taken to the OR and therefore he was seen postoperatively. Following surgery, nursing staff reported that he was not returning to the third floor due to hypotension. I presented to the PACU. He apparently developed hypotension intraoperatively after discussing with Anesthesiology, Dr. Ascencio. It occurred after sedation but improved with fluid and received approximately 1 L of fluid during the procedure itself. Following the procedure, his blood pressure once again became more hypotensive following fentanyl. He received another L of saline but his systolic blood pressure remained in the 70s to 80s. He was mildly tachycardic and appeared to be paced on telemetry. He denied lightheadedness, chest pain, shortness of breath, syncope, near-syncope, palpitations, or edema. His only complaint was back pain. He had an arterial line in place which reportedly was no longer working properly. When reviewing the chart, he was mildly hypotensive overnight into this morning and posto peratively since 1534, his systolic blood pressure has been consistently in the 70s to 80s leading up to this evaluation. His lowest blood pressure recorded was 66/50 mmHg. Despite IV fluid, he continues to denies shortness of breath and nursing staff reports no hypoxia. Review of systems: As above. Review of systems otherwise negative/unremarkable. Family history: Family history of CAD. Social history: Quit tobacco in the past. No significant alcohol. He is . They have 2 children (Angela is a nurse). Grandchildren. He is retired from [employer]. Allergies Allergy/AdvReac Type Severity Reaction Status Date / Time bee venom protein (honey bee) Allergy Severe SWELLING Verified 07/23/20 12:39 Sulfa (Sulfonamide Allergy Intermediate "SULFA": Verified 07/23/20 12:39 Antibiotics) RASH Penicillins Allergy Unknown UNKNOWN Verified 07/23/20 12:39 codeine AdvReac Intermediate HALLUCINATI Verified 07/23/20 12:39 NG Home Medications Medication Instructions Recorded Confirmed Type epinephrine [EpiPen] 0.3 mg IM Q3H PRN 10/21/18 07/23/20 History finasteride 5 mg PO QAM 10/21/18 07/23/20 History metoprolol tartrate 12.5 mg PO BID 10/21/18 07/23/20 History atorvastatin [Lipitor] 40 mg PO HS 10/22/18 07/23/20 History donepezil 10 mg PO QAM 10/22/18 07/23/20 History duloxetine 60 mg PO QAM 10/22/18 07/23/20 History gabapentin 300 mg PO QID 10/22/18 07/23/20 History hydrocortisone 1 applic TOPICAL HS PRN 10/22/18 07/23/20 History lamotrigine 200 mg PO HS 10/22/18 07/23/20 History memantine 5 mg PO BID 10/22/18 07/23/20 History aspirin 81 mg tablet,delayed 40.5 mg PO QAM tab 04/03/19 07/23/20 History release nitroglycerin 0.4 mg sublingual 0.4 mg SUBLINGUAL DIRECTED PRN 04/03/19 07/23/20 History tablet insulin glargine 100 unit/mL (3 30 units SUBCUT BID ml 07/25/19 07/23/20 History mL) subcutaneous pen acetaminophen [Tylenol Extra 1,000 mg PO TID PRN 03/18/20 07/23/20 History Strength] albuterol sulfate [ProAir HFA] 2 puffs INH Q4H PRN 03/18/20 07/23/20 History tramadol [Ultram] 50 mg PO Q4H PRN #20 tab 05/12/20 07/23/20 Rx budesonide-formoterol HFA 160 2 puff INHALATION BID 05/21/20 07/23/20 History mcg-4.5 mcg/actuation aerosol inhaler glimepiride 4 mg tablet 4 mg PO BID #180 tab 06/21/20 07/23/20 Rx buspirone 30 mg PO TID 07/21/20 07/23/20 History clindamycin HCl 600 mg PO DIRECTED PRN 07/21/20 07/23/20 History furosemide [Lasix] 20 mg PO QAM 07/21/20 07/23/20 History paroxetine HCl 20 mg PO QAM 07/21/20 07/23/20 History saxagliptin [Onglyza] 5 mg PO QAM 07/21/20 07/23/20 History sildenafil 25 - 125 mg PO DAILY PRN 07/21/20 07/23/20 History tiotropium bromide [Spiriva with 1 cap INHALATION QAM 07/21/20 07/23/20 History HandiHaler] docusate sodium [Colace] 100 mg PO BID #60 cap 07/22/20 07/23/20 Rx oxycodone 5 mg PO Q6H PRN #14 tab 07/22/20 07/23/20 Rx sennosides [Senokot] 8.6 mg PO HS #30 tab 07/22/20 07/23/20 Rx sacubitril 24 mg-valsartan 26 mg 1 tab PO BID #180 tab 07/23/20 07/23/20 Rx tablet Patient History Medical History (Updated 07/25/20 @ 18:13 by Raymundo Saba MD) Anemia Aneurysm of ascending aorta Asthma with COPD Bicuspid aortic valve replaced with bioprosthetic valve BPH (benign prostatic hyperplasia) CAD (coronary artery disease) Cardiomyopathy Carotid artery stenosis CKD (chronic kidney disease) COPD (chronic obstructive pulmonary disease) Dementia HTN (hypertension), benign Hyperlipidemia Lumbar radiculopathy Myelodysplastic syndrome Myocardial infarction Pacemaker Placed after AVR due to complete heart block Renal insufficiency TIA (transient ischemic attack) Surgical History H/O cardiac catheterization H/O endoscopic retrograde cholangiopancreatography History of back surgery 05/10/2020 Grade 2 view with Mac 3 blade History of colonoscopy History of repair of rotator cuff History of tonsillectomy Hx of cholecystectomy S/P aortic valve replacement S/P coronary artery stent placement S/P right knee surgery Status post cardiac pacemaker procedure for h/o complete heart block s/p his AVR Family History Sister Anxiety Brother Alcohol abuse Father Cardiac disorder Myocardial infarction Mother Depression Kidney disease Lung disease Stroke Other Family history non-contributory Denies family history of Ovarian cancer Prostate cancer Breast cancer Colorectal cancer Social History Smoking Status: Never smoker Tobacco Type: Cigarettes Age Quit Using Tobacco: 64; Cigarettes Per Day: Random cigarette usage; Second Hand Exposure: No; Hx Alcohol Use: Yes Alcohol type: hard liquor Hx Substance Use: No Preferred Language: Congolese Communication Ability: Effective Visual Impairment: No Limitations Hearing Ability: Use of Hearing Aid Senior Product Consultant Required: No Beliefs That Will Affect Care: None marital status: Current Living Situation: Spouse Current Living Situation Comment: House Other Information That Helps Us Care for You: No Feels Safe at Home: Yes Safety Concerns: Feels Safe At This Time Childhood Exposure to Second-Hand Smoke: Yes Seatbelt Use: always Sunscreen Use: Yes Assistive Devices: Glasses and Hearing Aid - Bilateral Physical Exam Physical Exam: Gen.: No acute distress. Alert and oriented. HEENT: Anicteric sclera. Neck: No JVD. Normal carotid upstrokes bilaterally. Cardiac: PMI was nonpalpable. No ventricular heave. Regular and tachycardic. Normal S1-S2. 2/6 early peaking systolic ejection murmur best heard at the right upper sternal border. No rubs or gallops. Pulmonary: Clear to auscultation bilaterally without wheezes, rales, or rhonchi. Abdomen: Soft, nontender, nondistended, with hypo active bowel sounds. No bruits noted. Extremities: 2+ right radial pulse. Arterial line in the left arm. 2+ posterior tibialis pulses bilaterally. No pitting edema. No cyanosis. Psychiatric: Affect appears appropriate. Results & Data ([facility]) Vital Signs (Past 12 Hours) Vital Signs Temp Pulse Pulse Resp BP BP Pulse Ox 07/25/20 17:35 107 H 16 98/55 L 99 07/25/20 17:25 109 H 15 74/60 L 99 07/25/20 17:15 106 H 16 89/57 L 99 07/25/20 17:05 105 H 15 77/54 L 96 07/25/20 16:55 106 H 17 79/51 L 100 07/25/20 16:45 112 H 16 76/40 L 79/56 L 98 07/25/20 16:35 111 H 17 85/44 L 79/57 L 97 07/25/20 16:25 108 H 19 82/58 L 74/41 L 96 07/25/20 16:15 110 H 12 83/45 L 79/58 L 94 07/25/20 16:05 110 H 20 78/41 L 88/57 L 91 07/25/20 15:55 116 H 23 66/50 L 75/50 L 89 L 07/25/20 15:45 121 H 12 79/53 L 70/40 L 90 07/25/20 15:35 126 H 20 79/58 L 93 07/25/20 15:25 117 H 15 103/86 97 07/25/20 15:15 121 H 13 101/72 99 07/25/20 15:08 36.3 C L 128 H 25 H 103/70 100 07/25/20 11:15 36.6 C 89 20 98/67 L 93 07/25/20 11:08 36.6 C 83 16 112/72 93 07/25/20 07:04 36.9 C 75 16 91/62 L 95 Laboratory Results Laboratory Results - last 24 hr 07/24/20 07/25/20 07/25/20 20:48 00:38 05:44 POC Glucose 98 112 H 142 H COVID-19 Eval Order SARS-CoV-2, RNA, NAAT 07/25/20 07/25/20 07/25/20 08:15 08:45 08:45 POC Glucose 127 H COVID-19 Eval Order [facility]19 [facility] SARS-CoV-2, RNA, NAAT NEGATIVE 07/25/20 07/25/20 13:43 15:18 POC Glucose 162 H 185 H COVID-19 Eval Order SARS-CoV-2, RNA, NAAT Diagnostic Findings Echo report reviewed from 07/16/2020 as noted in HPI. Telemetry reviewed: Ventricular pacing noted and mildly tachycardic. Medications Administered Current Inpatient Medications Acetaminophen (Acetaminophen 500 Mg Tab) 1,000 mg PO TID PRN PRN Reason: Pain Stop: 08/22/20 13:29 Last Admin: 07/24/20 18:14 Dose: 1,000 mg Documented by: Albuterol (Albuterol Hfa 8 Gm Inhaler) 2 puffs INH Q4H PRN; Protocol PRN Reason: shortness of breath or wheezin Stop: 08/22/20 14:07 Aspirin (Aspirin 81 Mg Chew) 40.5 mg PO QAM [facility] Stop: 08/23/20 08:59 Last Admin: 07/24/20 09:09 Dose: 40.5 mg Documented by: Atorvastatin Calcium (Atorvastatin 40 Mg Tab) 40 mg PO HS [facility] Stop: 08/22/20 20:59 Last Admin: 07/24/20 21:28 Dose: 40 mg Documented by: Atropine Sulfate (Atropine Sulfate 0.1 Mg/Ml 10ml Syr) 0.5 mg IV Q1M PRN PRN Reason: PACU Use-HR<40 &/or Bradycardi Stop: 07/25/20 20:35 Buspirone HCl (Buspirone 15 Mg Tab) 30 mg PO TID [facility] Stop: 08/22/20 13:59 Last Admin: 07/25/20 15:06 Dose: Not Given Documented by: Dextrose (Dextrose 50% 50 Ml Syringe) 25 - 50 ml IV UD PRN; Protocol PRN Reason: Hypoglycemia Protocol Stop: 08/22/20 13:22 Docusate Sodium (Docusate Sodium 100 Mg Cap) 100 mg PO BID [facility] Stop: 08/22/20 20:59 Last Admin: 07/25/20 15:06 Dose: Not Given Documented by: Donepezil HCl (Donepezil Hcl 10 Mg Tab) 10 mg PO QAM [facility] Stop: 08/23/20 08:59 Last Admin: 07/24/20 09:08 Dose: 10 mg Documented by: Duloxetine HCl (Duloxetine Hcl 60 Mg Cap) 60 mg PO QAM [facility] Stop: 08/23/20 08:59 Last Admin: 07/24/20 09:09 Dose: 60 mg Documented by: Finasteride (Finasteride 5 Mg Tab) 5 mg PO QAM [facility] Stop: 08/23/20 08:59 Last Admin: 07/24/20 09:07 Dose: 5 mg Documented by: Fluticasone/Vilanterol (Fluticasone/Vilanterol 200/25mcg 14 Puffs/Inhaler) 1 puffs INH DAILY [facility] Stop: 08/23/20 08:59 Last Admin: 07/25/20 10:30 Dose: 1 puffs Documented by: Furosemide (Furosemide 20 Mg Tab) 20 mg PO QAM [facility] Stop: 08/23/20 08:59 Last Admin: 07/24/20 09:09 Dose: 20 mg Documented by: Gabapentin (Gabapentin 300 Mg Cap) 300 mg PO QID [facility] Stop: 08/22/20 16:59 Last Admin: 07/25/20 15:06 Dose: Not Given Documented by: Glucagon (Glucagon For Inj 1 Mg Vial) 1 mg SQ UD PRN; Protocol PRN Reason: Hypoglycemia Protocol Stop: 08/22/20 13:22 Glucose (Glucose 10 Tabs/Tube) 4 - 8 tabs PO UD PRN; Protocol PRN Reason: Hypoglycemia Protocol Stop: 08/22/20 13:22 Glucose (Glucose 40% Gel 15 Gm Tube) 15 - 30 gm PO UD PRN; Protocol PRN Reason: Hypoglycemia Protocol Stop: 08/22/20 13:22 Hydrocortisone (Hydrocortisone Hc 2.5% Crm 30gm Tube) 1 appln EXT HS PRN PRN Reason: Itching Stop: 08/22/20 14:08 Hydromorphone HCl (Hydromorphone Inj 1 Mg/Ml Syringe) 0.25 mg IV Q5M PRN PRN Reason: PACU Use Only-Pain Stop: 07/25/20 20:35 Clindamycin Phosphate (Cleocin) 600 mg in 54 mls @ 100 mls/hr IV PREOP [facility] Stop: 07/25/20 18:00 Last Admin: 07/25/20 12:45 Dose: 100 mls/hr Documented by: Insulin Aspart (Insulin Aspart 100 Units/Ml 3 Ml Pen) 0 units SC Q6 [facility] Stop: 08/24/20 05:59 Last Admin: 07/25/20 06:00 Dose: 1 units Documented by: Lamotrigine (Lamotrigine 100 Mg Tab) 200 mg PO HS [facility] Stop: 08/22/20 20:59 Last Admin: 07/24/20 21:25 Dose: 200 mg Documented by: Lidocaine (Lidocaine 5% 1 Patch) 1 patch TD DAILY [facility] Stop: 08/22/20 17:29 Last Admin: 07/25/20 10:30 Dose: 1 patch Documented by: Memantine (Memantine Hcl 5 Mg Tab) 5 mg PO BID [facility] Stop: 08/22/20 20:59 Last Admin: 07/25/20 15:06 Dose: Not Given Documented by: Metoprolol Tartrate (Metoprolol Tartrate 25 Mg Tab) 12.5 mg PO BID [facility] Stop: 08/22/20 20:59 Last Admin: 07/25/20 15:06 Dose: Not Given Documented by: Miscellaneous (Carbohydrates For Hypoglycemia ) 15 - 30 gm PO UD PRN PRN Reason: Hypoglycemia Protocol Stop: 08/22/20 13:22 Miscellaneous (Remove Lidoderm Patch) 1 ea N/A DAILY@2100 [facility] Stop: 08/22/20 20:59 Last Admin: 07/24/20 22:17 Dose: 1 ea Documented by: Miscellaneous ( Floseal Hemostatic Matrix 10ml) 20 ml TOP ONCE ONE Stop: 07/25/20 14:48 Last Admin: 07/25/20 14:49 Dose: 20 ml Documented by: Miscellaneous Information (Pharmacy Glycemic Mgmt Consult) 1 ea N/A UD PRN; Protocol PRN Reason: Consult Stop: 08/22/20 14:15 Nitroglycerin (Nitroglycerin Sl 0.4 Mg/Tab Tab) 0.4 mg SL UD PRN PRN Reason: Chest Pain Stop: 08/22/20 13:34 Ondansetron HCl (Ondansetron Inj 2 Mg/Ml 2 Ml Vial) 4 mg IV ONCE PRN PRN Reason: PACU Use Only-Nausea/Vomiting Stop: 07/25/20 20:35 Oxycodone HCl (Oxycodone Hcl Ir 5 Mg Tab (Immediate Release)) 5 mg PO Q6H PRN PRN Reason: Pain Stop: 08/06/20 14:09 Last Admin: 07/24/20 12:46 Dose: 5 mg Documented by: Paroxetine HCl (Paroxetine Hcl 20 Mg Tab) [facility]: 08/23/20 08:59 Last Admin: 07/24/20 09:10 Dose: 20 mg Documented by: Sacubitril/Valsartan (Sacubitril-Valsartan 24-26 Mg Tab) 1 tab PO BID [facility] Stop: 08/22/20 20:59 Last Admin: 07/25/20 15:06 Dose: Not Given Documented by: Sennosides (Senna 8.6 Mg Tab) 8.6 mg PO HS [facility] Stop: 08/22/20 20:59 Last Admin: 07/24/20 21:28 Dose: 8.6 mg Documented by: Umeclidinium [place] (Umeclidinium [place] 62.5mcg/Blister 7 Puffs/Inhaler) 1 puffs INH [facility] Stop: 08/23/20 08:59 Last Admin: 07/25/20 10:30 Dose: 1 puffs Documented by: PG Care Time/CCT Total # of Minutes Spent Total Time Spent with Patient: Total time spent is greater than 50% in coordin ation of care (as documented) at patient's floor/unit and/or counseling patient: Critical Care Time: Yes Total Critical Care Time: 50 Coding Level of Care Code None Diagnoses Postoperative hypotension I95.89 S/P coronary artery stent placement Z95.5 CAD, multiple vessel I25.10 CARTER (dyspnea on exertion) R06.00 Pacemaker Z95.0 S/P aortic valve replacement with bioprosthetic valve Z95.3 Third degree AV block I44.2 Cardiomyopathy I42.9 Additional Codes Critical Care Time - Critical Care Time: Yes ([id number]) Time Spent (min) 50 Comment critical care time [id number]
[2020-07-25 19:05] LABS: Albumin Level 3.5 gm/dl (3.4-5.0); BUN Creatinine Ratio 31.9 (10-20); Calcium 8.4 mg/dl (8.5-10.1); Creatinine Clr Calc Pharmacy 44.9 ml/min; Est GFR (African American) 48.8; Est GFR (Non-African American) 42.1; Potassium 5.1 mmol/L (3.5-5.1)
[2020-07-25 19:13] LABS: Hematocrit (blood only) 31.6 % (42-52); Hemoglobin 10.3 g/dL (14.0-18.0); Mean Corpuscular Hemoglobin 31.5 pg (25-34); Mean Corpuscular Hgb Conc 32.6 g/dL (32-36); Mean Corpuscular Volume 96.6 fL (80-100); Mean Platelet Volume 10.7 fL (7.4-10.4); Platelet Count 347 K/uL (130-400); RDW Coefficient of Variation 19.8 % (11.5-14.5); RDW Standard Deviation 70.7 fL (36.4-46.3); Red Blood Count 3.27 M/uL (4.7-6.1); White Blood Count 30.58 K/uL (4.8-10.8)
[2020-07-25 19:15] LABS: Bilirubin,Total 2.1 mg/dl (0.2-1); Globulin 3.6 gm/dl (2.5-4.0); Total Protein 7.1 gm/dl (6.4-8.2)
[2020-07-25 19:16] LABS: INR 1.2 (0.9-1.1); Partial Thromboplastin Ratio 0.9; Partial Thromboplastin Time 25.8 Seconds (21.0-31.0); Prothrombin Time 12.2 Seconds (9.0-12.0)
[2020-07-25] MEDS ORDERED: ONDANSETRON 4 MG OD TAB PO PRN (19:25)
[2020-07-25] MEDS ORDERED: FAMOTIDINE 20 MG TAB PO PRN (19:25)
[2020-07-25] MEDS ORDERED: MAGNESIUM HYDROXIDE SUSP 30 ML UDC PO PRN (19:25)
[2020-07-25] MEDS ORDERED: HYDROmorphone INJ 0.5 MG/0.5 ML SYR IV PRN (19:25)
[2020-07-25] MEDS ORDERED: NALOXONE HCL 0.4 MG/1 ML VIAL/CARP IV PRN (19:25)
[2020-07-25] MEDS ORDERED: hydrOXYzine HCl 25 MG TAB PO PRN (19:25)
[2020-07-25] MEDS ORDERED: LORazepam 0.5 MG/1 ML VIAL IV PRN (19:25)
[2020-07-25] MEDS ORDERED: LORazepam 0.5 MG TAB PO PRN (19:25)
[2020-07-25] MEDS ORDERED: diphenhydrAMINE Capsule 25 MG CAP PO PRN (19:25)
[2020-07-25] MEDS ORDERED: bisacodyL 10 MG SUPP PR PRN (19:25)
[2020-07-25] MEDS ORDERED: ALUMINUM/MAGNESIUM SUSP 30 ML UDC PO PRN (19:25)
[2020-07-25] MEDS ORDERED: SOD PHOSPHATE/SOD BIPHOSPHATE ENEMA 132 ML BTL PR PRN (19:25)
[2020-07-25] MEDS ORDERED: DO NOT ADMINISTER PNEUMOCOCCAL VACCINE PRN (19:25)
[2020-07-25] MEDS ORDERED: ACETAMINOPHEN 1,000 MG/100 ML VIAL IV PRN (19:25)
[2020-07-25] MEDS ORDERED: DO NOT ADMINISTER FLU VACCINE PRN (19:25)
[2020-07-25] MEDS ORDERED: PROMETHAZINE HCL 12.5 MG in SODIUM CHLORIDE 0.9% 50 ML IV PRN (19:25)
[2020-07-25] MEDS ORDERED: SODIUM CHLORIDE 0.9% 1000ML 1,000 ML IV SCH (19:25)
[2020-07-25] MEDS ORDERED: METOCLOPRAMIDE HCL INJ 5 MG/ML 2 ML VIAL IV PRN (19:25)
[2020-07-25] MEDS ORDERED: traMADol HCL 50 MG TABLET PO PRN (19:25)
[2020-07-25] MEDS: DONEPEZIL HCL 10 MG TAB PO SCH (19:34)
[2020-07-25] MEDS: FINASTERIDE 5 MG TAB PO SCH (19:35)
[2020-07-25] MEDS: PARoxetine HCL 20 MG TAB PO SCH (19:35)
[2020-07-25] MEDS: ASPIRIN 81 MG CHEW PO SCH (19:35)
[2020-07-25] MEDS: DULoxetine HCL 60 MG CAP PO SCH (19:35)
[2020-07-25] MEDS: FUROSEMIDE 20 MG TAB PO SCH (19:37)
[2020-07-25] MEDS: CLINDAMYCIN 600 MG in DEXTROSE 5% 50 ML IV SCH (22:00)
[2020-07-25] MEDS: DOCUSATE SODIUM/SENNA 50/8.6MG TAB PO SCH (22:01)
[2020-07-25] MEDS: lamoTRIgine 100 MG TAB PO SCH (22:04)
[2020-07-25] MEDS: ATORVASTATIN 40 MG TAB PO SCH (22:05)
[2020-07-25] MEDS: SENNA 8.6 MG TAB PO SCH (22:08)
[2020-07-26] MEDS ORDERED: SODIUM CHLORIDE 0.9% 1000ML 500 ML IV ONE (00:22)
[2020-07-26] MEDS: oxyCODONE HCL IR 5 MG TAB (IMMEDIATE RELEASE) PO PRN ×2 (01:06→18:22)
--- NOTE | 2020-07-26 01:08 | Communication Note ---
Date of Service: July 26, 2020 S: Notified by nursing of some hypotensive numbers. Patient only acute complaint is pain down left leg 10/10. Lopressor PM dose held by staff. O: Lungs are clear posteriorly bilaterally without and sound of rales. BP: 70s/40s. Appears at neuro baseline. A: Hypotensive. Appears dry on exam, no signs of pulmonary congestion. Reviewed echo, reduced EF but not super severe. I feel as he could tolerate more fluids to improve pressure. P: NSS 500cc bolus and restart fluids at 150ml/hr. Monitor for signs of fluid overload, monitor BP. Resident Activity Tracking Resident Involvement: Resident Care Provided Care Provided: Adult Hospital Medicine
[2020-07-26] MEDS: SODIUM CHLORIDE 0.9% 1000ML 1,000 ML IV SCH ×2 (02:21→08:32)
[2020-07-26 04:48] LABS: Basophils # (auto) 0.02 K/uL (0-0.2); Basophils % (auto) 0.1 %; Eosinophils # (auto) 0.02 K/uL (0-0.5); Eosinophils % (auto) 0.1 %; Hematocrit (blood only) 29.4 % (42-52); Hemoglobin 9.5 g/dL (14.0-18.0); Immature Granulocytes # (auto) 0.06 K/uL (0.00-0.02); Immature Granulocytes % (auto) 0.3 %; Lymphocytes # (auto) 1.46 K/uL (1.2-3.4); Mean Corpuscular Hgb Conc 32.3 g/dL (32-36); Mean Corpuscular Volume 96.1 fL (80-100); Mean Platelet Volume 10.9 fL (7.4-10.4); Monocytes # (auto) 2.09 K/uL (0.11-0.59); Neutrophils # (auto) 17.35 K/uL (1.4-6.5); Neutrophils % (auto) 82.5 %; Nucleated RBC # (auto) 0.03 K/uL (0-0); Nucleated RBC % (auto) 0.1 %; Platelet Count 326 K/uL (130-400); RDW Coefficient of Variation 19.7 % (11.5-14.5); RDW Standard Deviation 69.5 fL (36.4-46.3); Red Blood Count 3.06 M/uL (4.7-6.1)
[2020-07-26 05:00] LABS: BUN Creatinine Ratio 35.9 (10-20); Calcium 7.9 mg/dl (8.5-10.1); Creatinine Clr Calc Pharmacy 53.2 ml/min; Est GFR (African American) 60.1; Est GFR (Non-African American) 51.8; Potassium 4.8 mmol/L (3.5-5.1)
[2020-07-26] MEDS: CLINDAMYCIN 600 MG in DEXTROSE 5% 50 ML IV SCH (05:54)
[2020-07-26] MEDS: POLYETHYLENE (MIRALAX) 17 GM PACK PO SCH ×3 (05:55→17:04)
--- NOTE | 2020-07-26 07:22 | Hospitalist Progress Note ---
Date of Service July 26, 2020 Assessment & Plan (1) Postoperative hypotension: Volume resusitation post op continues, blood pressure remains low with a low MAP, but Pt is mentating well, did not have significant blood loss and has stable post op laboratories. (2) Intractable back pain: Dr. Brown completed surgery on 07/25 for an L2-3, 3 4 decompression and fusion with instrumentation continue with parenteral pain medications scheduled Tylenol and topical pain medicines as needed (3) CAD, multiple vessel: Has a history ofMultivessel CAD s/p Multiple PCI's, Bicuspid Aortic Valve s/p Bioprosthetic AVR 2011, Ascending Aortic Aneurysm, Complete Heart Block s/p Medtronic Dual Chamber Pacemaker 2011, COPD, Dyslipidemia, Hypertension, Prior Pulmonary Emboli following AVR surgery 2011, Carotid Artery Disease, COVID 27 March 2020 underwent surgery in May without an issue, he has a bioprosthetic aortic valve. He remains on metoprolol tartrate 12.5 twice daily, atorvastatin 40. patient will be followed by cardiology Dr. Saba. post procedure diuretic and entresto will be held, hesitate to hold metoprolol due to tachycardia. (4) COPD (chronic obstructive pulmonary disease): History of COPD continuing on albuterol ProAir desonideformoterol remains stable at this time (5) CKD (chronic kidney disease): Chronic kidney disease stage III with care with dosing and using medications, no harm from low blood pressure (6) Diabetes mellitus type 2, controlled: Patient typically on glimepiride plus alogliptin, these are held as can he is converted to his insulin sliding scale with a carbohydrate conservative diet (7) Pacemaker: (8) BPH (benign prostatic hyperplasia): Patient remains on finasteride with concerns for postoperative Hudson catheter Admission and Anticipated Discharge Date Admission Date: July 25, 2020 Subjective Patient's right leg symptoms are markedly improved. He is not being asymptomatic from his lower blood pressure he did recieve large amounts of volume resuscitation and continues on IVF at this time Review of Systems Review of Systems: Mild to moderate distress and fatigue no headache, blurry or double vision no speech or swallowing issues no chest pain, pressure or palpitations no shortness of breath, cough or wheezes no abdominal pain, nausea or vomiting, diarrhea or constipation no dysuria, hematuria or frequency no focal joint pain or swelling Radicular back pain is improved almost resolved no bruising, bleeding or rashes no focal signs of weakness or numbness or altered sensation no complaints of anxiety or depression.. Physical Exam Physical Exam: The patient appeared with reasonable pain control but in mild discomfort Vital signs as documented. Head exam is normocephalic atraumatic no scleral icterus Neck is without JVD, thyromegaly, or carotid bruits. Lungs are with decreased breath sounds but no overt loss or wheeze Cardiac exam, Rhythm is regular.. No murmurs, rubs or gallops. Abdominal exam reveals normal bowel sounds, soft non tender, no masses Extremities are nonedematous and both pedal pulses are present Neurologic exam is alert and oriented, no focal loss of strength or sensation Skin is without bruises or rashes Psychologically is without concerns for anxiety or depression. Results & Data Results & Data ([facility]) Vital Signs (Past 12 Hours) Vital Signs Temp Pulse Resp BP Pulse Ox 07/26/20 07:00 106 H 19 88/56 L 91 07/26/20 06:31 107 H 23 07/26/20 06:30 107 H 18 85/54 L 07/26/20 06:01 109 H 25 H 07/26/20 06:00 108 H 17 94/56 L 07/26/20 05:31 108 H 19 07/26/20 05:30 108 H 18 101/62 07/26/20 05:01 109 H 19 07/26/20 05:00 109 H 15 98/62 L 07/26/20 04:31 111 H 17 07/26/20 04:30 102 H 22 97/56 L 07/26/20 04:01 112 H 17 07/26/20 04:00 98.1 F 112 H 26 H 92/60 L 07/26/20 03:31 111 H 19 07/26/20 03:30 111 H 18 101/63 18 03:01 110 H 18 07/26/20 03:00 110 H 25 H 90/65 L 07/26/20 02:31 112 H 18 07/26/20 02:30 112 H 20 96/63 L 07/26/20 02:01 111 H 21 07/26/20 02:00 111 H 20 97/67 L 07/26/20 01:31 112 H 26 H 07/26/20 01:30 113 H 16 101/69 12/18/20 01:01 110 H 17 103/65 07/26/20 01:00 110 H 19 07/26/20 00:56 110 H 28 H 64/48 L 07/26/20 00:31 108 H 21 07/26/20 00:30 106 H 16 76/50 L 07/26/20 00:28 97.5 F L 110 H 19 71/43 L 07/26/20 00:04 117 H 19 72/41 L 07/26/20 00:01 114 H 20 07/26/20 00:00 109 H 5 L 69/43 L 07/25/20 23:32 115 H 21 85/57 L 07/25/20 23:31 115 H 20 07/25/20 23:30 108 H 22 68/52 L 07/25/20 23:01 113 H 22 07/25/20 23:00 112 H 22 92/47 L 07/25/20 22:31 114 H 24 98 07/25/20 22:30 112 H 26 H 86/54 L 100 07/25/20 22:01 109 H 13 100 07/25/20 22:00 125 H 15 80/53 L 100 07/25/20 21:31 116 H 21 90 07/25/20 21:30 111 H 26 H 100/67 98 07/25/20 21:01 103 H 22 98 07/25/20 21:00 111 H 19 95/58 L 99 07/25/20 20:31 109 H 14 92/63 L 94 07/25/20 20:30 122 H 28 H 88 L 07/25/20 20:00 113 H 20 93 07/25/20 19:50 115 H 20 98 07/25/20 19:45 107 H 20 99/66 L 80 L 07/25/20 19:40 121 H 21 96 07/25/20 19:30 114 H 13 98 PG Care Time/CCT Total # of Minutes Spent Total Time Spent with Patient: Total time spent is greater than 50% in coordination of care (as documented) at patient's floor/unit and/or counseling patient: Coding Level of Care Code 48697 Subseq Hosp Care Lvl 3 Diagnoses Postoperative hypotension I95.89 Intractable back pain M54.9 CAD, multiple vessel I25.10 COPD (chronic obstructive pulmonary disease) J44.9 CKD (chronic kidney disease) N18.9 Diabetes mellitus type 2, controlled E11.9 Pacemaker Z95.0 BPH (benign prostatic hyperplasia) N40.0
[2020-07-26] MEDS ORDERED: INSULIN GLARGINE SOLOSTAR 100 UNITS/ML 3 ML PEN SC SCH ×2 (08:15→21:00)
[2020-07-26] MEDS: INSULIN ASPART 100 UNITS/ML 3 ML PEN SC SCH ×4 (08:24→20:58)
[2020-07-26] MEDS: UMECLIDINIUM BROMIDE 62.5MCG/BLISTER 7 PUFFS/INHALER INH SCH (08:24)
[2020-07-26] MEDS: FINASTERIDE 5 MG TAB PO SCH (08:25)
[2020-07-26] MEDS: GABAPENTIN 300 MG CAP PO SCH ×4 (08:25→20:39)
[2020-07-26] MEDS: DONEPEZIL HCL 10 MG TAB PO SCH (08:25)
[2020-07-26] MEDS: busPIRone 15 MG TAB PO SCH ×3 (08:25→20:40)
[2020-07-26] MEDS: PARoxetine HCL 20 MG TAB PO SCH (08:25)
[2020-07-26] MEDS: DOCUSATE SODIUM 100 MG CAP PO SCH ×2 (08:25→20:47)
[2020-07-26] MEDS: DULoxetine HCL 60 MG CAP PO SCH (08:26)
[2020-07-26] MEDS: FLUTICASONE/VILANTEROL 200/25MCG 14 PUFFS/INHALER INH SCH (08:26)
[2020-07-26] MEDS: LIDOCAINE 5% 1 PATCH TD SCH (08:29)
[2020-07-26] MEDS: METOPROLOL TARTRATE 25 MG TAB PO SCH ×2 (08:29→20:56)
[2020-07-26] MEDS: ASPIRIN 81 MG CHEW PO SCH (08:39)
--- NOTE | 2020-07-26 09:41 | Orthopedic Progress Note ---
Date of Service July 26, 2020 Assessment & Plan (1) Recurrent herniation of lumbar disc: Admission and Anticipated Discharge Date Admission Date: July 25, 2020 This time when he is medically stable he should initiate physical therapy for ambulation and transfers. We will consider discontinuing of his drain Wednesday or Wednesday. Subjective Patient's right leg symptoms are markedly improved. Back pain controlled. He is having some left proximal thigh soreness and aching. Is not radicular nature. Physical Exam Physical Exam: On exam is improved strength testing bilateral extremities. Appears comfortable. Results & Data ([facility]) Vital Signs (Past 12 Hours) Vital Signs Temp Pulse Resp BP Pulse Ox 07/26/20 07:00 106 H 19 88/56 L 91 07/26/20 06:31 107 H 23 07/26/20 06:30 107 H 18 85/54 L 07/26/20 06:01 109 H 25 H 07/26/20 06:00 108 H 17 94/56 L 07/26/20 05:31 108 H 19 07/26/20 05:30 108 H 18 101/62 07/26/20 05:01 109 H 19 07/26/20 05:00 109 H 15 98/62 L 07/26/20 04:31 111 H 17 07/26/20 04:30 102 H 22 97/56 L 07/26/20 04:01 112 H 17 07/26/20 04:00 36.7 C 112 H 26 H 92/60 L 07/26/20 03:31 111 H 19 07/26/20 03:30 111 H 18 101/63 07/26/20 03:01 110 H 18 07/26/20 03:00 110 H 25 H 90/65 L 07/26/20 02:31 112 H 18 07/26/20 02:30 112 H 20 96/63 L 07/26/20 02:01 111 H 21 07/26/20 02:00 111 H 20 97/67 L 07/26/20 01:31 112 H 26 H 07/26/20 01:30 113 H 16 101/69 07/26/20 01:01 110 H 17 103/65 07/26/20 01:00 110 H 19 07/26/20 00:56 110 H 28 H 64/48 L 07/26/20 00:31 108 H 21 07/26/20 00:30 106 H 16 76/50 L 07/26/20 00:28 36.4 C L 110 H 19 71/43 L 07/26/20 00:04 117 H 19 72/41 L 07/26/20 00:01 114 H 20 07/26/20 00:00 109 H 5 L 69/43 L 07/25/20 23:32 115 H 21 85/57 L 07/25/20 23:31 115 H 20 07/25/20 23:30 108 H 22 68/52 L 07/25/20 23:01 113 H 22 07/25/20 23:00 112 H 22 92/47 L 07/25/20 22:31 114 H 24 98 07/25/20 22:30 112 H 26 H 86/54 L 100 07/25/20 22:01 109 H 13 100 07/25/20 22:00 125 H 15 80/53 L 100
[2020-07-26] MEDS: MEMANTINE HCL 5 MG TAB PO SCH ×2 (10:01→20:43)
--- NOTE | 2020-07-26 12:50 | Pharmacy Report ---
Pharmacy Glycemic Short Note 2 - Date of Service July 26, 2020 - Glycemic Short BSG Results (Last 24 hours): 07/25/20 07/25/20 07/25/20 13:43 15:18 18:30 Glucose 201 H POC Glucose 162 H 185 H 07/25/20 07/26/20 07/26/20 23:55 04:14 07:25 Glucose 139 H POC Glucose 255 H 141 H 07/26/20 11:33 Glucose POC Glucose 151 H OUTPATIENT ANTIDIABETIC REGIMEN: * Lantus 30 units SC BID * Saxagliptin 5 mg PO qAM * Glimepiride 4 mg PO BID * HbA1c: 8.1% (07/24/20) ASSESSMENT: 07/26/20: * Pt received 22 units of insulin yesterday * 15 units of basal insulin * 7 units of correctional insulin * BSG ranging from 142-255 mg/dL over the past 24 hrs * Changes needed for the next 24 hrs: * AM Fasting BSG 141 mg/dL. This is near goal range but still slightly above goal. Patient is now ordered a diet. Will add scale of lantus for this evening. * BSGs adequate with exception of evening BSG yesterday, will continue same novolog parameters for now 07/25/20: * Patient is currently receiving an average of 53 units of insulin per day * 15 units of basal insulin * 38 units of prandial/correctional insulin * BSGs ranging 98-191 mg/dl over the past 24hrs * Changes needed for the next 24hrs: * AM Fasting BSG = 142 mg/dl. This is near goal range for inpatient targets. Pt is NPO for surgery today. Will continue with 15 units of basal this AM and re-evaluate PM dosing - will dose based on BSG. * Total daily dose = is weighted towards prandial insulin. Basal insulin may need increased slightly but BSGs are in goal range- will continue to titrate based on BSG trends. * RK is a 75 year old male with recurrent herniation of lumbar disc * Plan is for decompression/fusion in OR tomorrow - will be NPO after midnight in anticipation for surgery * BSGs elevated in the 200s yesterday * Received 40 units of basal (30 units of which were prior to admission) and 17 units of prandial/correctional * Elevated BSGs likely due in part to IV dexamethasone * Historically, patient has required less insulin as an inpatient compared to outpatient regimen PLAN FOR INPATIENT GLYCEMIC CONTROL: * Hold outpatient oral diabetes medications * Basal insulin * Lantus 15 units SQ x 1 this morning * Lantus scale to provide 0-10 units this evening (see EHR for details) * Bolus insulin: no change * NovoLog per scale ACHS or Q6hrs while NPO * Goal Range: Low 110 mg/dL - High 140 mg/dL * Correction Factor: 20 mg/dL/unit * Nutritional / Prandial insulin per carb ratio of 1 unit per 6 grams CHO consumed
[2020-07-26] MEDS ORDERED: PERFLUTREN LIPID MICROSPHERE (DEFINITY) IV ONE (17:09)
--- NOTE | 2020-07-26 17:44 | Cardiology Progress Note ---
Date of Service July 26, 2020 Assessment & Plan (1) Postoperative hypotension: (2) S/P coronary artery stent placement: (3) CAD, multiple vessel: (4) CARTER (dyspnea on exertion): (5) Pacemaker: (6) S/P aortic valve replacement with bioprosthetic valve: (7) Third degree AV block: (8) Cardiomyopathy: ASSESSMENT/PLAN: 1. Postoperative hypotension: Blood pressure has improved but remains mildly hypotensive for the most part. His most recent blood pressure was normal. He has responded well to IV fluids and has tolerated them well despite reduced LV systolic function. Vasodilation from recently started Entresto during this hospitalization could be playing a role. He also appeared hypovolemic and had been given Lasix which he typically does not take at home. Would not give any further IV fluids today. If blood pressure becomes more significantly hypotensive or he becomes symptomatic or evidence of end-organ damage, would consider low-dose high inotropic support, such as dobutamine. 2. Multivessel CAD s/p PCI: No angina. Aspirin 81 mg daily is indicated however he prefers to take half of that dose due to bleeding. Resume beta- nica when blood pressure tolerates. Recommend succinate in place of tartrate prior to discharge given reduced LV systolic function. Continue high-intensity statin therapy. 3. Cardiomyopathy: Newly found last week in outpatient echo on 07/16/2020 perceived worsening dyspnea with exertion. Repeat echo was ordered today given ongoing hypotension and tachycardia. LV systolic function is now severely reduced, worse than what was reported on 07/16/2020 study. Given further decline, and his history of multivessel PCI, considering cardiac catheterization when improved from his back surgery (still has drain in place). Clinically, he has improved and therefore there is no emergent indication for cardiac catheterization. RV pacing could also be playing a role. Cannot exclude myocarditis or acute illness cardiomyopathy. Continue to support medically for now when able with consideration of cardiac catheterization in the future. Metoprolol succinate in place of tartrate prior to discharge. 4. Third-degree AV block s/p dual chamber pacemaker: Followed by electrophysiology. 5. Bicuspid aortic valve s/p bioprosthetic aortic valve replacement: Appropriately functioning on July 2020 echo. SBE prophylaxis. 6. Thoracic aortic aneurysm: Asymptomatic. Continue beta-nica as tolerated. Avoid heavy lifting for which the Valsalva maneuver is required. 7. Disposition: Cardiology will continue to follow. I will be away from hospital for the next [address] Choi will be covering over the weekend. Danny mccabe's daughter, Aaliyah, was notified as per his request. Dr. Carter of the primary hospitalist service was personally contacted via telephone and today's findings and plan of care discussed with him. Admission and Anticipated Discharge Date Admission Date: July 25, 2020 Subjective He was seen today in room 107 and he was seated in a chair at the bedside. His back pain has improved but continues to occur. He was able to ambulate in his room today to use the commode. He denies chest pain, shortness of breath, syncope, near-syncope, lightheadedness, palpitations, edema. He did not lay flat to sleep due to back pain but has not had any orthopnea. Overall, his blood pressure has improved compared to yesterday but remains mildly hypotensive at times. He is asymptomatic with this and continues to make urine. Review of systems: As above. Physical Exam Physical Exam: Gen.: No acute distress. Alert and oriented. HEENT: Anicteric sclera. Neck: No JVD. Cardiac: No ventricular heave. Regular and tachycardic. Normal S1-S2. 2/6 early peaking systolic ejection murmur best heard at the right upper sternal border. No rubs or gallops. Pulmonary: Clear to auscultation bilaterally without wheezes, rales, or rhonchi. Abdomen: Soft, nontender, nondistended, with hypo active bowel sounds. No bruits noted. Extremities: 2+ bilateral radial pulses. 2+ posterior tibialis pulses bilaterally. No pitting edema. No cyanosis. Psychiatric: Affect appears appropriate. Results & Data ([facility]) Vital Signs (Past 12 Hours) Vital Signs Temp Pulse Pulse Resp BP BP Pulse Ox 07/26/20 17:30 108 H 23 07/26/20 17:02 113 H 22 104/70 07/26/20 17:00 107 H 18 07/26/20 16:30 107 H 19 07/26/20 16:00 36.8 C 107 H 108 H 22 88/56 L 96 07/26/20 15:51 112 H 29 H 88/55 L 07/26/20 15:30 106 H 19 07/26/20 15:00 108 H 17 07/26/20 14:30 107 H 13 07/26/20 14:00 112 H 16 07/26/20 13:30 101 H 16 07/26/20 13:01 96 H 22 105/58 L 07/26/20 13:00 100 H 20 07/26/20 12:30 106 H 19 101/59 L 07/26/20 12:01 104 H 24 90/47 L 07/26/20 12:00 36.6 C 101 H 108 H 19 88/56 L 96 07/26/20 11:39 07/26/20 11:31 101 H 14 07/26/20 11:30 103 H 16 86/53 L 07/26/20 11:29 108 H 19 99/51 L 07/26/20 11:22 104 H 20 86/58 L 07/26/20 11:20 106 H 24 84/53 L 07/26/20 11:10 103 H 24 90/52 L 07/26/20 11:01 102 H 24 07/26/20 11:00 102 H 19 93/54 L 07/26/20 10:31 103 H 22 07/26/20 10:30 103 H 19 90/59 L 07/26/20 10:01 111 H 21 07/26/20 10:00 105 H 20 95/63 L 07/26/20 09:31 105 H 21 07/26/20 09:30 103 H 19 96/53 L 07/26/20 09:01 94 H 21 07/26/20 09:00 104 H 21 83/54 L 07/26/20 08:31 109 H 22 79/51 L 07/26/20 08:30 105 H 22 07/26/20 08:01 103 H 20 07/26/20 08:00 36.6 C 103 H 108 H 22 96/64 L 80/56 L 96 07/26/20 07:31 109 H 24 07/26/20 07:30 106 H 16 100/59 L 07/26/20 07:01 107 H 20 07/26/20 07:00 106 H 19 88/56 L 91 07/26/20 06:31 107 H 23 07/26/20 06:30 107 H 18 85/54 L 07/26/20 06:01 109 H 25 H 07/26/20 06:00 108 H 17 94/56 L Pulse Ox 07/26/20 17:30 07/26/20 17:02 07/26/20 17:00 07/26/20 16:30 07/26/20 16:00 07/26/20 15:51 07/26/20 15:30 07/26/20 15:00 07/26/20 14:30 07/26/20 14:00 07/26/20 13:30 07/26/20 13:01 07/26/20 13:00 07/26/20 12:30 07/26/20 12:01 07/26/20 12:00 07/26/20 11:39 97 07/26/20 11:31 07/26/20 11:30 07/26/20 11:29 07/26/20 11:22 07/26/20 11:20 07/26/20 11:10 07/26/20 11:01 07/26/20 11:00 07/26/20 10:31 07/26/20 10:30 07/26/20 10:01 07/26/20 10:00 07/26/20 09:31 07/26/20 09:30 07/26/20 09:01 07/26/20 09:00 07/26/20 08:31 07/26/20 08:30 07/26/20 08:01 07/26/20 08:00 07/26/20 07:31 07/26/20 07:30 07/26/20 07:01 07/26/20 07:00 07/26/20 06:31 07/26/20 06:30 07/26/20 06:01 07/26/20 06:00 Intake & Output 07/24/20 07/25/20 07/26/20 07/27/20 06:59 06:59 06:59 06:59 Intake Total 1220 / 1220 740 / 740 3681 / 3681 2577.5 / 2577.5 Output Total 550 / 550 1175 / 1175 1660 / 1660 765 / 765 Balance 670 / 670 -435 / -435 2020 / 2020 1812.5 / 1812.5 Weight 195 lb 1.745 oz 210 lb 1.608 oz Laboratory Results Laboratory Results - last 24 hr 12/07/25/20 07/25/20 18:30 18:30 18:30 WBC 30.58 H* RBC 3.27 L Hgb 10.3 L Hct 31.6 L MCV 96.6 MCH 31.5 MCHC 32.6 RDW Std Deviation 70.7 H RDW Coeff of Linda 19.8 H Plt Count 347 MPV 10.7 H Immature Gran % (Auto) Neut % (Auto) Lymph % (Auto) Hendricks % (Auto) Eos % (Auto) Baso % (Auto) Neut # (Auto) Lymph # (Auto) Hendricks # (Auto) Eos # (Auto) Baso # (Auto) Immature Gran # (Auto) Absolute Nucleated RBC Nucleated RBC % (auto) PT 12.2 H INR 1.2 H APTT 25.8 PTT Ratio 0.9 Sodium 139 Potassium 5.1 Chloride 105 Carbon Dioxide 27 Anion Gap 7.0 BUN 51 H Creatinine 1.59 H Est Cr Clr Drug Dosing 44.9 Est GFR ( Amer) 48.8 Est GFR (Non-Af Amer) 42.1 BUN/Creatinine Ratio 31.9 H Glucose 201 H POC Glucose Lactate Calcium 8.4 L Total Bilirubin 2.1 H AST 21 ALT 19 Alkaline Phosphatase 100 Troponin I Total Protein 7.1 Albumin 3.5 Globulin 3.6 Albumin/Globulin Ratio 1.0 Nasal Screen MRSA (PCR) 07/25/20 07/25/20 07/25/20 18:33 19:30 23:55 WBC RBC Hgb Hct MCV MCH MCHC RDW Std Deviation RDW Coeff of Linda Plt Count MPV Immature Gran % (Auto) Neut % (Auto) Lymph % (Auto) Hendricks % (Auto) Eos % (Auto) Baso % (Auto) Neut # (Auto) Lymph # (Auto) Hendricks # (Auto) Eos # (Auto) Baso # (Auto) Immature Gran # (Auto) Absolute Nucleated RBC Nucleated RBC % (auto) PT INR APTT PTT Ratio Sodium Potassium Chloride Carbon Dioxide Anion Gap BUN Creatinine Est Cr Clr Drug Dosing Est GFR ( Amer) Est GFR (Non-Af Amer) BUN/Creatinine Ratio Glucose POC Glucose 255 H Lactate 2.0 Calcium Total Bilirubin AST ALT Alkaline Phosphatase Troponin I Total Protein Albumin Globulin Albumin/Globulin Ratio Nasal Screen MRSA (PCR) Negative 07/26/20 07/26/20 07/26/20 04:14 04:14 07:25 WBC 21.00 H RBC 3.06 L Hgb 9.5 L Hct 29.4 L MCV 96.1 MCH 31.0 MCHC 32.3 RDW Std Deviation 69.5 H RDW Coeff of Linda 19.7 H Plt Count 326 MPV 10.9 H Immature Gran % (Auto) 0.3 Neut % (Auto) 82.5 Lymph % (Auto) 7.0 Hendricks % (Auto) 10.0 Eos % (Auto) 0.1 Baso % (Auto) 0.1 Neut # (Auto) 17.35 H Lymph # (Auto) 1.46 Hendricks # (Auto) 2.09 H Eos # (Auto) 0.02 Baso # (Auto) 0.02 Immature Gran # (Auto) 0.06 H Absolute Nucleated RBC 0.03 H Nucleated RBC % (auto) 0.1 PT INR APTT PTT Ratio Sodium 138 Potassium 4.8 Chloride 105 Carbon Dioxide 28 Anion Gap 5.0 BUN 48 H Creatinine 1.34 Est Cr Clr Drug Dosing 53.2 Est GFR ( Amer) 60.1 Est GFR (Non-Af Amer) 51.8 BUN/Creatinine Ratio 35.9 H Glucose 139 H POC Glucose 141 H Lactate Calcium 7.9 L Total Bilirubin AST ALT Alkaline Phosphatase Troponin I Total Protein Albumin Globulin Albumin/Globulin Ratio Nasal Screen MRSA (PCR) 07/26/20 07/26/20 07/26/20 11:33 15:30 16:18 WBC RBC Hgb Hct MCV MCH MCHC RDW Std Deviation RDW Coeff of Linda Plt Count MPV Immature Gran % (Auto) Neut % (Auto) Lymph % (Auto) Hendricks % (Auto) Eos % (Auto) Baso % (Auto) Neut # (Auto) Lymph # (Auto) Hendricks # (Auto) Eos # (Auto) Baso # (Auto) Immature Gran # (Auto) Absolute Nucleated RBC Nucleated RBC % (auto) PT INR APTT PTT Ratio Sodium Potassium Chloride Carbon Dioxide Anion Gap BUN Creatinine Est Cr Clr Drug Dosing Est GFR ( Amer) Est GFR (Non-Af Amer) BUN/Creatinine Ratio Glucose POC Glucose 151 H 148 H Lactate Calcium Total Bilirubin AST ALT Alkaline Phosphatase Troponin I < 0.015 Total Protein Albumin Globulin Albumin/Globulin Ratio Nasal Screen MRSA (PCR) Diagnostic Findings Telemetry personally reviewed: Sinus with sinus tachycardia with ventricular pacing (atrial sensed). ECG personally reviewed: ECG 07/26/2020: Atrial sensed and ventricular paced at 100 beats per minute. Limited echo 07/26/2020: LV systolic function 25-30%. Global hypokinesis. Medications Administered Current Inpatient Medications Acetaminophen (Acetaminophen 500 Mg Tab) 1,000 mg PO Q8H PRN PRN Reason: MILD Pain Scale 1,2,3 & Pre PT Stop: 08/24/20 19:24 Al Hydrox/Mg Hydrox/Simethicone (Aluminum/Magnesium Susp 30 Ml Udc) 30 ml PO Q6H PRN PRN Reason: Dyspepsia Stop: 08/24/20 19:24 Albuterol (Albuterol Hfa 8 Gm Inhaler) 2 puffs INH Q4H PRN; Protocol PRN Reason: shortness of breath or wheezin Stop: 08/22/20 14:07 Aspirin (Aspirin 81 Mg Chew) 40.[address] [facility] Stop: 08/23/20 08:59 Last Admin: 07/26/20 08:39 Dose: 40.5 mg Documented by: Atorvastatin Calcium (Atorvastatin 40 Mg Tab) [address] [facility] Stop: 08/22/20 20:59 Last Admin: 07/25/20 22:05 Dose: 40 mg Documented by: Bisacodyl (Bisacodyl 10 Mg Supp) 10 mg [place] DAILY PRN PRN Reason: Constipation Stop: 08/24/20 19:24 Buspirone HCl (Buspirone 15 Mg Tab) [address] [facility] Stop: 08/22/20 13:59 Last Admin: 07/26/20 14:28 Dose: 30 mg Documented by: Dextrose (Dextrose 50% 50 Ml Syringe) 25 - 50 ml IV UD PRN; Protocol PRN Reason: Hypoglycemia Protocol Stop: 08/22/20 13:22 Diphenhydramine HCl (Diphenhydramine Capsule 25 Mg Cap) 25 mg PO Q6H PRN PRN Reason: Allergic Rhinitis/Insomnia Stop: 08/24/20 19:24 Docusate Sodium (Docusate Sodium 100 Mg Cap) [address] [facility] Stop: 08/22/20 20:59 Last Admin: 07/26/20 08:25 Dose: 100 mg Documented by: Donepezil HCl (Donepezil Hcl 10 Mg Tab) [address] [facility] Stop: 08/23/20 08:59 Last Admin: 07/26/20 08:25 Dose: 10 mg Documented by: Duloxetine HCl (Duloxetine Hcl 60 Mg Cap) [address] [facility] Stop: 08/23/20 08:59 Last Admin: 07/26/20 08:26 Dose: 60 mg Documented by: Famotidine (Famotidine 20 Mg Tab) 20 mg PO Q12H PRN PRN Reason: Dyspepsia Stop: 08/24/20 19:24 Last Admin: 07/25/20 22:01 Dose: 20 mg Documented by: Finasteride (Finasteride 5 Mg Tab) [address] [facility] Stop: 08/23/20 08:59 Last Admin: 07/26/20 08:25 Dose: 5 mg Documented by: Fluticasone/Vilanterol (Fluticasone/Vilanterol 200/25mcg 14 Puffs/Inhaler) [address] [facility] Stop: 08/23/20 08:59 Last Admin: 07/26/20 08:26 Dose: 1 puffs Documented by: Gabapentin (Gabapentin 300 Mg Cap) [address] [facility] Stop: 08/22/20 16:59 Last Admin: 07/26/20 17:04 Dose: 300 mg Documented by: Glucagon (Glucagon For Inj 1 Mg Vial) 1 mg SQ UD PRN; Protocol PRN Reason: Hypoglycemia Protocol Stop: 08/22/20 13:22 Glucose (Glucose 10 Tabs/Tube) 4 - 8 tabs PO UD PRN; Protocol PRN Reason: Hypoglycemia Protocol Stop: 08/22/20 13:22 Glucose (Glucose 40% Gel 15 Gm Tube) 15 - 30 gm PO UD PRN; Protocol PRN Reason: Hypoglycemia Protocol Stop: 08/22/20 13:22 Hydrocortisone (Hydrocortisone Hc 2.5% Crm 30gm Tube) 1 appln EXT HS PRN PRN Reason: Itching Stop: 08/22/20 14:08 Hydromorphone HCl (Hydromorphone Inj 0.5 Mg/0.5 Ml Syr) 0.5 mg IV Q3H PRN PRN Reason: MOD pain (scale 4-6) & Pre PT Stop: 08/08/20 19:24 Hydroxyzine HCl (Hydroxyzine Hcl 25 Mg Tab) 25 mg PO Q8H PRN PRN Reason: Anxiety Stop: 08/24/20 19:24 Last Admin: 07/25/20 22:00 Dose: 25 mg Documented by: Promethazine HCl 12.5 mg/ (Sodium Chloride) 50.5 mls @ 204 mls/hr IV Q6H PRN PRN Reason: Nausea &/or Vomiting Stop: 08/24/20 19:24 Lorazepam (Ativan) 0.5 mg in 1 mls @ 0.5 mls/min IV Q8H PRN PRN Reason: Sedation/Anxiety Stop: 08/24/20 19:24 Acetaminophen (Ofirmev) 1,000 mg in 100 mls @ 400 mls/hr IV Q8H PRN PRN Reason: MILD Pain Rating 1,2,3 Stop: 07/28/20 19:24 Influenza Virus Vaccine Quadrival (Do Not Administer Flu Vaccine) 1 ea N/A PRN PRN PRN Reason: Notification Stop: 08/24/20 19:24 Insulin Aspart (Insulin Aspart 100 Units/Ml 3 Ml Pen) 0 units SC [facility] Stop: 08/25/20 07:29 Last Admin: 07/26/20 17:05 Dose: 9 units Documented by: Insulin Glargine (Insulin Glargine Solostar 100 Units/Ml 3 Ml Pen) 0 units SC [facility]; Protocol Stop: 07/26/20 21:01 Lamotrigine (Lamotrigine 100 Mg Tab) 200 mg PO [facility] Stop: 08/22/20 20:59 Last Admin: 07/25/20 22:04 Dose: 200 mg Documented by: Lidocaine (Lidocaine 5% 1 Patch) [address] [facility] Stop: 08/22/20 17:29 Last Admin: 07/26/20 08:29 Dose: 1 patch Documented by: Lorazepam (Lorazepam 0.5 Mg Tab) 0.5 mg PO Q8H PRN PRN Reason: Sedation/Anxiety Stop: 08/24/20 19:24 Magnesium Hydroxide (Magnesium Hydroxide Susp 30 Ml Udc) 30 ml PO DAILY PRN PRN Reason: Constipation Stop: 08/24/20 19:24 Memantine (Memantine Hcl 5 Mg Tab) [address] [facility] Stop: 08/22/20 20:59 Last Admin: 07/26/20 10:01 Dose: 5 mg Documented by: Metoclopramide HCl (Metoclopramide Hcl Inj 5 Mg/Ml 2 Ml Vial) 10 mg IV Q6H PRN PRN Reason: Nausea &/or Vomiting Stop: 08/24/20 19:24 Metoprolol Tartrate (Metoprolol Tartrate 25 Mg Tab) 12.[address] [facility] Stop: 08/22/20 20:59 Last Admin: 07/26/20 08:29 Dose: Not Given Documented by: Miscellaneous (Carbohydrates For Hypoglycemia ) 15 - 30 gm PO UD PRN PRN Reason: Hypoglycemia Protocol Stop: 08/22/20 13:22 Miscellaneous (Remove Lidoderm Patch) 1 ea N/A DAILY@2100 [facility] Stop: 08/22/20 20:59 Last Admin: 07/25/20 22:06 Dose: 1 ea Documented by: Miscellaneous Information (Pharmacy Glycemic Mgmt Consult) 1 ea N/A UD PRN; Protocol PRN Reason: Consult Stop: 08/22/20 14:15 Naloxone HCl (Naloxone Hcl 0.4 Mg/1 Ml Vial/Carp) 0.1 mg IV Q5M PRN; Protocol PRN Reason: Oversedation/Resp Depression Stop: 08/24/20 19:24 Nitroglycerin (Nitroglycerin Sl 0.4 Mg/Tab Tab) 0.4 mg SL UD PRN PRN Reason: Chest Pain Stop: 08/22/20 13:34 Ondansetron HCl (Ondansetron Inj 2 Mg/Ml 2 Ml Vial) 4 mg IV Q6H PRN PRN Reason: Nausea &/or Vomiting Stop: 08/24/20 19:24 Ondansetron HCl (Ondansetron 4 Mg Od Tab) 4 mg PO Q6H PRN PRN Reason: Nausea Stop: 08/24/20 19:24 Oxycodone HCl (Oxycodone Hcl Ir 5 Mg Tab (Immediate Release)) 5 - 10 mg PO Q4H PRN PRN Reason: Moderate-Severe Pain & Pre PT Stop: 08/08/20 19:24 Last Admin: 07/26/20 01:06 Dose: 10 mg Documented by: Paroxetine HCl (Paroxetine Hcl 20 Mg Tab) [address] [facility] Stop: 08/23/20 08:59 Last Admin: 07/26/20 08:25 Dose: 20 mg Documented by: Pneumococcal Polyvalent Vaccine (Do Not Administer Pneumococcal Vaccine) 1 ea N/A PRN PRN PRN Reason: Notification Stop: 08/24/20 19:24 Polyethylene Glycol (Polyethylene (Miralax) 17 Gm Pack) [address] [facility] Stop: 08/25/20 05:59 Last Admin: 07/26/20 17:04 Dose: 17 gm Documented by: Senna/Docusate Sodium (Docusate Sodium/Senna 50/8.6mg Tab) 2 tab PO [facility] Stop: 08/24/20 20:59 Last Admin: 07/25/20 22:01 Dose: 2 tab Documented by: Sennosides (Senna 8.6 Mg Tab) 8.6 mg PO [facility] Stop: 08/22/20 20:59 Last Admin: 07/25/20 22:08 Dose: 8.6 mg Documented by: Sodium Biphosphate/Sodium Phosphate (Sod Phosphate/Sod Biphosphate Enema 132 Ml Btl) 132 ml IL ONE PRN PRN Reason: Constipation Stop: 08/24/20 19:24 Tramadol HCl (Tramadol Hcl 50 Mg Tablet) 50 - 100 mg PO Q4H PRN PRN Reason: Moderate-Severe Pain & Pre PT Stop: 08/24/20 19:24 Umeclidinium Almont (Umeclidinium [place] 62.5mcg/Blister 7 Puffs/Inhaler) [address] [facility] Stop: 08/23/20 08:59 Last Admin: 07/26/20 08:24 Dose: 1 puffs Documented by: PG Care Time/CCT Total # of Minutes Spent Total Time Spent with Patient: Total time spent is greater than 50% in coordination of care (as documented) at patient's floor/unit and/or counseling patient: Coding Level of Care Code 80566 Subseq Hosp Care Lvl 3 Diagnoses Postoperative hypotension I95.89 S/P coronary artery stent placement Z95.5 CAD, multiple vessel I25.10 CARTER (dyspnea on exertion) R06.00 Pacemaker Z95.0 S/P aortic valve replacement with bioprosthetic valve Z95.3 Third degree AV block I44.2 Cardiomyopathy I42.9
--- NOTE | 2020-07-26 18:10 | XCELERA ---
[id number]
[2020-07-26] MEDS: SENNA 8.6 MG TAB PO SCH (20:40)
[2020-07-26] MEDS: DOCUSATE SODIUM/SENNA 50/8.6MG TAB PO SCH (20:40)
[2020-07-26] MEDS: lamoTRIgine 100 MG TAB PO SCH (20:42)
[2020-07-26] MEDS: ATORVASTATIN 40 MG TAB PO SCH (20:43)
[2020-07-27] MEDS: POLYETHYLENE (MIRALAX) 17 GM PACK PO SCH ×5 (00:42→21:58)
[2020-07-27] MEDS: ACETAMINOPHEN 500 MG TAB PO PRN (01:41)
--- NOTE | 2020-07-27 06:13 | Electrocardiogram Report ---
Test Reason : Blood Pressure : / mmHG Vent. Rate : 100 BPM Atrial Rate : 100 BPM P-R Int : 128 ms QRS Dur : 182 ms QT Int : 456 ms P-R-T Axes : 027 -60 110 degrees QTc Int : 588 ms Atrial-sensed ventricular-paced rhythm Abnormal ECG When compared with ECG of 06-MAY-2020 14:28, Vent. rate has increased BY 27 BPM Confirmed by Raymundo Saba ([id number]) on 07/27/2020 6:12:28 AM Referred By: REFERRED SELF Confirmed By:Raymundo Saba
[2020-07-27] MEDS: oxyCODONE HCL IR 5 MG TAB (IMMEDIATE RELEASE) PO PRN (07:48)
[2020-07-27] MEDS: LIDOCAINE 5% 1 PATCH TD SCH (08:07)
[2020-07-27] MEDS: UMECLIDINIUM BROMIDE 62.5MCG/BLISTER 7 PUFFS/INHALER INH SCH (08:07)
[2020-07-27] MEDS: FLUTICASONE/VILANTEROL 200/25MCG 14 PUFFS/INHALER INH SCH (08:07)
[2020-07-27] MEDS: METOPROLOL TARTRATE 25 MG TAB PO SCH ×2 (08:08→21:06)
[2020-07-27] MEDS: DOCUSATE SODIUM 100 MG CAP PO SCH ×2 (08:08→21:05)
[2020-07-27] MEDS: DONEPEZIL HCL 10 MG TAB PO SCH (08:08)
[2020-07-27] MEDS: FINASTERIDE 5 MG TAB PO SCH (08:09)
[2020-07-27] MEDS: DULoxetine HCL 60 MG CAP PO SCH (08:09)
[2020-07-27] MEDS: MEMANTINE HCL 5 MG TAB PO SCH ×2 (08:09→21:05)
[2020-07-27] MEDS: GABAPENTIN 300 MG CAP PO SCH ×4 (08:09→21:05)
[2020-07-27] MEDS: PARoxetine HCL 20 MG TAB PO SCH (08:09)
[2020-07-27] MEDS: busPIRone 15 MG TAB PO SCH ×3 (08:09→21:04)
[2020-07-27] MEDS: ASPIRIN 81 MG CHEW PO SCH (08:11)
[2020-07-27] MEDS: INSULIN ASPART 100 UNITS/ML 3 ML PEN SC SCH ×4 (08:12→21:55)
[2020-07-27] MEDS ORDERED: INSULIN GLARGINE SOLOSTAR 100 UNITS/ML 3 ML PEN SC SCH ×2 (09:00→21:00)
--- NOTE | 2020-07-27 09:32 | Cardiology Progress Note ---
Date of Service July 27, 2020 Assessment & Plan (1) Cardiomyopathy: (2) Postoperative hypotension: (3) CAD, multiple vessel: (4) COPD (chronic obstructive pulmonary disease): (5) Third degree AV block: Admission and Anticipated Discharge Date Admission Date: 1. Postoperative hypotension: Improved. Review his records suggest that his blood pressures were in a similar range after his last operation. His volume status is likely better. His heart rate is down slightly this morning. Was administered his usual beta-nica due to improved blood pressures. At this point I think it is reasonable to continue him on his outpatient medical regimen would simply consists of metoprolol. At the time of discharge switching him from metoprolol tartrate 12.5 mg twice daily to metoprolol succinate 25 mg daily would be good option given the development of his cardiomyopathy. We will see how he feels when he is up in ambulatory later today. Continue to monitor blood pressure. 2. Multivessel CAD s/p PCI: No angina. No chest pain. Developed a new c ardiomyopathy could suggest progression of coronary disease. Will consider repeat angiography, likely as an outpatient. 3. Cardiomyopathy: Unclear if this is playing a role in his hypotension. He appears to be well compensated otherwise. No evidence of pulmonary edema on examination. Oxygenating well. No symptoms of shortness of breath. However, he has not been very ambulatory yet. The etiology of the cardiomyopathy is unclear. Possibly ischemic given his history of heart disease. Possibly stress related. Possibly related to chronic right ventricular apical pacing. 4. Third-degree AV block s/p dual chamber pacemaker: Longevity was limited at the last evaluation 1 year ago. Will check his device while he is an inpatient primarily to determine battery longevity. Whether his chronic RV apical pacing is playing a role in his reduced LV function is unclear. However, he will likely need a generator replacement in the next few months. I would be an opportune time to upgrade his device if necessary. 5. Bicuspid aortic valve s/p bioprosthetic aortic valve replacement: Appropriately functioning on July 2020 echo. SBE prophylaxis. 6. Thoracic aortic aneurysm: Asymptomatic. Continue beta-nica as tolerated. Avoid heavy lifting for which the Valsalva maneuver is required.July 25, 2020 Subjective This morning the patient claims to be feeling quite well. He did report some testicular discomfort, but he attributed this to the indwelling Hudson catheter. His postoperative and radicular pain appears to have resolved entirely. He is able to sleep quite well last evening. He currently denies significant breathing difficulty. He did not report dizziness or lightheadedness. He has not actually been out of bed yet this morning. Review of Systems Review of Systems: Per HPI Physical Exam Physical Exam: The patient is alert and oriented. Mood and affect appeared normal. He answered all questions appropriately. HEENT: Pupils are equal and reactive to light and accommodation. Extraocular movements are intact. The sclerae are anicteric. Neuro: Cranial nerves intact Lungs: Clear to auscultation bilaterally. He has good air movement without use of accessory muscles. No rales wheezes or rhonchi. Cardiac: Heart demonstrates a regular rate and rhythm. Normal S1 and S2. Crescendo systolic murmur Pulses: The patient has palpable radial pulses bilaterally that are equal in intensity Extremities: There was no evidence of hypoperfusion. There is no cyanosis or clubbing. There is no edema. Skin: I did not appreciate any rashes on examination today. Results & Data ([facility]) Vital Signs (Past 12 Hours) Vital Signs Temp Pulse Resp BP Pulse Ox 07/27/20 04:00 37.1 C 105 H 20 104/58 L 94 07/27/20 00:00 37 C 119 H 20 95/53 L 93 Laboratory Results Abnormal Lab Results 07/26/20 07/26/20 07/26/20 11:33 15:30 16:18 POC Glucose 151 H 148 H Troponin I < 0.015 07/26/20 07/27/20 20:55 06:39 POC Glucose 166 H 146 H Troponin I PG Care Time/CCT Total # of Minutes Spent Total Time Spent with Patient: Total time spent is greater than 50% in coordination of care (as documented) at patient's floor/unit and/or counseling patient: Coding Level of Care Code 24365 Subseq Hosp Care Lvl 3 Diagnoses Cardiomyopathy I42.9 Postoperative hypotension I95.89 CAD, multiple vessel I25.10 COPD (chronic obstructive pulmonary disease) J44.9 Third degree AV block I44.2
--- NOTE | 2020-07-27 10:03 | Orthopedic Progress Note ---
Date of Service July 27, 2020 Assessment & Plan (1) Recurrent herniation of lumbar disc: Admission and Anticipated Discharge Date Admission Date: July 25, 2020 This time we will continue with physical therapy hopefully he will be stable to discharge to orthopedic floor today. We will discontinue his Hudson catheter today. Subjective Back pain controlled leg symptoms markedly improved. Physical Exam Physical Exam: Patient appears comfortable is excellent strength testing. Results & Data ([facility]) Vital Signs (Past 12 Hours) Vital Signs Temp Pulse Resp BP BP Pulse Ox 07/27/20 08:00 36.6 C 99 H 20 115/88 94 07/27/20 04:00 37.1 C 105 H 20 104/58 L 94 07/27/20 00:00 37 C 119 H 20 95/53 L 93
--- NOTE | 2020-07-27 17:00 | Hospitalist Progress Note ---
Date of Service July 27, 2020 Assessment & Plan (1) Postoperative hypotension: lower end but acceptable BP, no sx. conitnue current care and follow but safe for tx to medical (2) Intractable back pain: Dr. Brown completed surgery on 07/25 for an L2-3, 3 4 decompression and fusion with instrumentation continue with parenteral pain medications scheduled Tylenol and topical pain medicines as needed. PT/OT eval and treat (3) CAD, multiple vessel: Has a history ofMultivessel CAD s/p Multiple PCI's, Bicuspid Aortic Valve s/p Bioprosthetic AVR 2011, Ascending Aortic Aneurysm, Complete Heart Block s/p Medtronic Dual Chamber Pacemaker 2011, COPD, Dyslipidemia, Hypertension, Prior Pulmonary Emboli following AVR surgery 2011, Carotid Artery Disease, COVID 27 March 2020 med management as possible in light of BP. but clinically stable/no angina today (4) COPD (chronic obstructive pulmonary disease): History of COPD continuing on albuterol ProAir desonideformoterol remains stable at this time no dyspnea (5) CKD (chronic kidney disease): Chronic kidney disease stage III with care with dosing and using medic ations, no harm from low blood pressure, follow creatinine periodically (6) Diabetes mellitus type 2, controlled: Patient typically on glimepiride plus alogliptin, these are held as can he is converted to his insulin sliding scale with a carbohydrate conservative diet - sugars a little tight today but follow - if still low into tomorrow then reduce insulins (7) Pacemaker: (8) BPH (benign prostatic hyperplasia): Patient remains on finasteride with concerns for postoperative Hudson catheter (9) DVT prophylaxis: scds (10) Discharge planning issues: transfer to med surg today. follow for needs w PT/OT. pt hopes to be abl e to go home in coming days. Admission and Anticipated Discharge Date Admission Date: July 25, 2020 Subjective feeling well overall. no lightheaded. moving better. hopes to go home w outpt or home therapy. no breathing issues. no acute complaints at all Review of Systems Review of Systems: All systems reviewed & are unremarkable except as noted in HPI & below Physical Exam Physical Exam: gen aaox3 pleasant nad heent nc at mmm breathing unlabored no accessory muscles good effort skin no rashes no pallor or icterus neuro no focal deficits Results & Data Results & Data ([facility]) Vital Signs (Past 12 Hours) Vital Signs Temp Pulse Resp BP Pulse Ox 07/27/20 16:00 97.9 F 95 H 20 90/54 L 96 07/27/20 12:00 97.9 F 92 H 20 87/55 L 96 07/27/20 08:00 97.9 F 99 H 20 115/88 94 PG Care Time/CCT Total # of Minutes Spent Total Time Spent with Patient: Total time spent is greater than 50% in coordination of care (as documented) at patient's floor/unit and/or counseling patient: Coding Level of Care Code 90788 Subseq Hosp Care Lvl 3 Diagnoses Postoperative hypotension I95.89 Intractable back pain M54.9 CAD, multiple vessel I25.10 COPD (chronic obstructive pulmonary disease) J44.9 CKD (chronic kidney disease) N18.9 Diabetes mellitus type 2, controlled E11.9 Pacemaker Z95.0 BPH (benign prostatic hyperplasia) N40.0 DVT prophylaxis Z29.9 Discharge planning issues Z02.9
[2020-07-27] MEDS: DOCUSATE SODIUM/SENNA 50/8.6MG TAB PO SCH (21:04)
[2020-07-27] MEDS: lamoTRIgine 100 MG TAB PO SCH (21:05)
[2020-07-27] MEDS: ATORVASTATIN 40 MG TAB PO SCH (21:05)
[2020-07-27] MEDS: SENNA 8.6 MG TAB PO SCH (21:05)
[2020-07-28] MEDS: POLYETHYLENE (MIRALAX) 17 GM PACK PO SCH (05:44)
[2020-07-28 06:15] LABS: Basophils # (auto) 0.01 K/uL (0-0.2); Basophils % (auto) 0.1 %; Eosinophils # (auto) 0.17 K/uL (0-0.5); Eosinophils % (auto) 0.9 %; Hematocrit (blood only) 26.9 % (42-52); Hemoglobin 8.8 g/dL (14.0-18.0); Immature Granulocytes # (auto) 0.05 K/uL (0.00-0.02); Immature Granulocytes % (auto) 0.3 %; Lymphocytes # (auto) 1.65 K/uL (1.2-3.4); Lymphocytes % (auto) 9.2 %; Mean Corpuscular Hemoglobin 31.5 pg (25-34); Mean Corpuscular Hgb Conc 32.7 g/dL (32-36); Mean Corpuscular Volume 96.4 fL (80-100); Mean Platelet Volume 11.1 fL (7.4-10.4); Monocytes # (auto) 1.65 K/uL (0.11-0.59); Monocytes % (auto) 9.2 %; Neutrophils # (auto) 14.47 K/uL (1.4-6.5); Neutrophils % (auto) 80.3 %; Platelet Count 274 K/uL (130-400); RDW Coefficient of Variation 19.9 % (11.5-14.5); RDW Standard Deviation 71.1 fL (36.4-46.3); Red Blood Count 2.79 M/uL (4.7-6.1)
[2020-07-28 07:03] LABS: BUN Creatinine Ratio 22.3 (10-20); Calcium 8.5 mg/dl (8.5-10.1); Creatinine Clr Calc Pharmacy 64.4 ml/min; Est GFR (African American) 73.8; Est GFR (Non-African American) 63.7; Potassium 4.7 mmol/L (3.5-5.1)
[2020-07-28] MEDS ORDERED: COUGH DROP (SUGAR FREE) LOZ 24 LOZ/1 BOX BUCCAL ONE (08:03)
[2020-07-28] MEDS ORDERED: COUGH DROP (SUGAR FREE) LOZ 24 LOZ/1 BOX BUCCAL PRN (08:05)
[2020-07-28] MEDS: INSULIN ASPART 100 UNITS/ML 3 ML PEN SC SCH ×4 (09:14→21:36)
[2020-07-28] MEDS: UMECLIDINIUM BROMIDE 62.5MCG/BLISTER 7 PUFFS/INHALER INH SCH (09:15)
[2020-07-28] MEDS: MEMANTINE HCL 5 MG TAB PO SCH ×2 (09:15→21:35)
[2020-07-28] MEDS: INSULIN GLARGINE SOLOSTAR 100 UNITS/ML 3 ML PEN SC SCH (09:15)
[2020-07-28] MEDS: PARoxetine HCL 20 MG TAB PO SCH (09:15)
[2020-07-28] MEDS: FLUTICASONE/VILANTEROL 200/25MCG 14 PUFFS/INHALER INH SCH (09:15)
[2020-07-28] MEDS: FINASTERIDE 5 MG TAB PO SCH (09:15)
[2020-07-28] MEDS: GABAPENTIN 300 MG CAP PO SCH ×4 (09:15→21:36)
[2020-07-28] MEDS: ASPIRIN 81 MG CHEW PO SCH (09:16)
[2020-07-28] MEDS: METOPROLOL TARTRATE 25 MG TAB PO SCH ×2 (09:16→21:35)
[2020-07-28] MEDS: DONEPEZIL HCL 10 MG TAB PO SCH (09:16)
[2020-07-28] MEDS: DULoxetine HCL 60 MG CAP PO SCH (09:16)
[2020-07-28] MEDS: DOCUSATE SODIUM 100 MG CAP PO SCH ×2 (09:16→21:50)
[2020-07-28] MEDS: busPIRone 15 MG TAB PO SCH ×3 (09:16→21:34)
[2020-07-28] MEDS: LIDOCAINE 5% 1 PATCH TD SCH (09:19)
--- NOTE | 2020-07-28 10:58 | Cardiology Progress Note ---
Date of Service July 28, 2020 Assessment & Plan (1) Cardiomyopathy: ASSESSMENT/PLAN: 1. Postoperative hypotension: Much improved. His hospital course seem similar to that experienced during his last back surgery with respect to very mild hypotension. He received both doses of his beta-nica yesterday. I think we can continue him on his known outpatient medical regimen which includes b.i.d. dosing of metoprolol. We need to be careful regarding his volume status. He may have a very mild element of hypovolemia. This is not appear to be affecting him clinically and I would be hesitant to attempt diuresis given the trouble with had over the past few days with his hypotension. Think we can simply monitor his symptoms and exam overnight. I would not add a daily diuretic at this point. 2. Multivessel CAD s/p PCI: No angina. Aspirin 81 mg daily is indicated however he prefers to take half of that dose due to bleeding. Will continue beta-blockade as well. Continue high-intensity statin therapy. 3. Cardiomyopathy: His overall LV function appears to have worsened recently. With their this is related to his acute illness, development of more significant coronary disease or pacemaker induced LV dysfunction is unclear. Fortunately, he appears well compensated currently. Will plan on switching his metoprolol tartrate to metoprolol succinate 25 mg tomorrow morning. While addition of Bill inhibition, Entresto or ARB is recommended, I think given his difficulties with hypotension recently this will need to be deferred at this time. 4. Third-degree AV block s/p dual chamber pacemaker: Normal function without intrinsic ventricular rhythm. Longevity estimated at 7 and 24 months. I will make sure he has remote monitoring and schedule him for routine evaluation in our clinic in a few months. 5. Bicuspid aortic valve s/p bioprosthetic aortic valve replacement: Appropriately functioning on July 2020 echo. SBE prophylaxis. 6. Thoracic aortic aneurysm: Asymptomatic. Continue beta-nica as tolerated. Avoid heavy lifting for which the Valsalva maneuver is required. (2) Postoperative hypotension: (3) CAD, multiple vessel: (4) COPD (chronic obstructive pulmonary disease): (5) Third degree AV block: Admission and Anticipated Discharge Date Admission Date: July 25, 2020 Subjective This morning the patient claims to be feeling well. He did not have much of an appetite. However, he does not have arm or leg discomfort. Some very mild back discomfort. Much improved from admission. He denies dizziness or lightheadedness. He did not report any symptoms such as breathing difficulty or chest discomfort. According to the nursing staff he has been ambulatory around the room without complaint. Review of Systems Review of Systems: Per HPI Physical Exam Physical Exam: The patient is alert and oriented. Mood and affect appeared normal. He answered questions mostly appropriately. Some inappropriate responses on occasion. HEENT: Pupils are equal and reactive to light and accommodation. Extraocular movements are intact. The sclerae are anicteric. Neuro: Cranial nerves intact Lungs: Perhaps some mild congestion in the bases bilaterally. No expiratory wheezing. Normal respiratory effort Cardiac: Heart demonstrates a regular rate and rhythm. Normal S1 and S2. Crescendo systolic murmur Pulses: The patient has palpable radial pulses bilaterally that are equal in intensity Extremities: There was no evidence of hypoperfusion. There is no cyanosis or clubbing. There is no edema. Skin: I did not appreciate any rashes on examination today. Results & Data ([facility]) Vital Signs (Past 12 Hours) Vital Signs Temp Pulse Resp BP Pulse Ox 07/28/20 07:34 36.5 C 92 H 16 106/68 94 Laboratory Results Abnormal Lab Results 07/27/20 07/27/20 07/27/20 11:12 15:49 15:50 WBC RBC Hgb Hct MCV MCH MCHC RDW Std Deviation RDW Coeff of Linda Plt Count MPV Immature Gran % (Auto) Neut % (Auto) Lymph % (Auto) [place] % (Auto) Eos % (Auto) Baso % (Auto) Neut # (Auto) Lymph # (Auto) [place] # (Auto) Eos # (Auto) Baso # (Auto) Immature Gran # (Auto) Sodium Potassium Chloride Carbon Dioxide Anion Gap BUN Creatinine Est Cr Clr Drug Dosing Est GFR ( Amer) Est GFR (Non-Af Amer) BUN/Creatinine Ratio Glucose POC Glucose 170 H 68 L* 67 L* Calcium 07/27/20 07/27/20 07/28/20 16:06 20:27 05:51 WBC 18.00 H RBC 2.79 L Hgb 8.8 L Hct 26.9 L MCV 96.4 MCH 31.5 MCHC 32.7 RDW Std Deviation 71.1 H RDW Coeff of Linda 19.9 H Plt Count 274 MPV 11.1 H Immature Gran % (Auto) 0.3 Neut % (Auto) 80.3 Lymph % (Auto) 9.2 [place] % (Auto) 9.2 Eos % (Auto) 0.9 Baso % (Auto) 0.1 Neut # (Auto) 14.47 H Lymph # (Auto) 1.65 [place] # (Auto) 1.65 H Eos # (Auto) 0.17 Baso # (Auto) 0.01 Immature Gran # (Auto) 0.05 H Sodium Potassium Chloride Carbon Dioxide Anion Gap BUN Creatinine Est Cr Clr Drug Dosing Est GFR ( Amer) Est GFR (Non-Af Amer) BUN/Creatinine Ratio Glucose POC Glucose 71 198 H Calcium 07/28/20 07/28/20 05:51 07:56 WBC RBC Hgb Hct MCV MCH MCHC RDW Std Deviation RDW Coeff of Linda Plt Count MPV Immature Gran % (Auto) Neut % (Auto) Lymph % (Auto) [place] % (Auto) Eos % (Auto) Baso % (Auto) Neut # (Auto) Lymph # (Auto) [place] # (Auto) Eos # (Auto) Baso # (Auto) Immature Gran # (Auto) Sodium 136 Potassium 4.7 Chloride 103 Carbon Dioxide 28 Anion Gap 5.0 BUN 25 H Creatinine 1.13 Est Cr Clr Drug Dosing 64.4 Est GFR ( Amer) 73.8 Est GFR (Non-Af Amer) 63.7 BUN/Creatinine Ratio 22.3 H Glucose 171 H POC Glucose 181 H Calcium 8.5 Diagnostic Findings I performed a complete interrogation of his dual-chamber permanent pacemaker, primarily to evaluate the longevity of the device in this individual who is device dependent. Estimated longevity at 7-24 months. Normal sensing on the atrial channel. No intrinsic R-waves. Normal ventricular threshold with only mildly elevated atrial threshold. No arrhythmias detected. 100% ventricular pacing. PG Care Time/CCT Total # of Minutes Spent Total Time Spent with Patient: Total time spent is greater than 50% in coordination of care (as documented) at patient's floor/unit and/or counseling patient: Coding Level of Care Code 93202 Subseq Hosp Care Lvl 2 Diagnoses Cardiomyopathy I42.9 Postoperative hypotension I95.89 CAD, multiple vessel I25.10 COPD (chronic obstructive pulmonary disease) J44.9 Third degree AV block I44.2 CPT Codes Dual Lead Pacemaker System - [id number] ([id number])
--- NOTE | 2020-07-28 11:04 | Orthopedic Progress Note ---
Date of Service July 28, 2020 Assessment & Plan (1) Recurrent herniation of lumbar disc: Admission and Anticipated Discharge Date Admission Date: July 25, 2020 Stable continue physical therapy anticipate discharge home Wednesday or Wednesday. Subjective Patient's back pain is controlled leg symptoms markedly improved. He is tolerating physical therapy well. Physical Exam Physical Exam: On exam is comfortable with good strength testing. Results & Data ([facility]) Vital Signs (Past 12 Hours) Vital Signs Temp Pulse Resp BP Pulse Ox 07/28/20 07:34 36.5 C 92 H 16 106/68 94
--- NOTE | 2020-07-28 17:42 | Hospitalist Progress Note ---
Date of Service July 28, 2020 Assessment & Plan (1) Postoperative hypotension: ongoing low but acceptable BP, no sx. continue to follow (2) Intractable back pain: Dr. Brown completed surgery on 07/25 for an L2-3, 3 4 decompression and fusion with instrumentation continue with parenteral pain medications scheduled Tylenol and topical pain medicines as needed. PT/OT eval and treat - looking like he'll probably be appropriate for outpt PT ongoing (3) CAD, multiple vessel: Has a history ofMultivessel CAD s/p Multiple PCI's, Bicuspid Aortic Valve s/p Bioprosthetic AVR 2011, Ascending Aortic Aneurysm, Complete Heart Block s/p Medtronic Dual Chamber Pacemaker 2011, COPD, Dyslipidemia, Hypertension, Prior Pulmonary Emboli following AVR surgery 2011, Carotid Artery Disease, COVID 27 March 2020 med management as possible in light of BP. but clinically stable and no complaints in this regard today (4) COPD (chronic obstructive pulmonary disease): History of COPD continuing on albuterol ProAir desonideformoterol, no complaints (5) CKD (chronic kidney disease): Chronic kidney disease stage III with care with dosing and using medications, no harm from low blood pressure, follow creatinine periodically (good today @ 1.13) (6) Diabetes mellitus type 2, controlled: Patient typically on glimepiride plus alogliptin, these are held as can he is converted to his insulin sliding scale with a carbohydrate conservative diet - acceptable glucose control today (7) Pacemaker: (8) BPH (benign prostatic hyperplasia): Patient remains on finasteride with concerns for postoperative Hudson catheter (9) DVT prophylaxis: scds (10) Discharge planning issues: stable on medical. possibly home tomorrow Admission and Anticipated Discharge Date Admission Date: July 25, 2020 Subjective generally feeling good. getting around well. no acute complaints. hoping to get home tomorrow. Review of Systems Review of Systems: All systems reviewed & are unremarkable except as noted in HPI & below Physical Exam Physical Exam: gen aaox3 pleasant nad heent nc at mmm breathing unlabored no accessory muscles good effort skin no rashes no pallor or icterus neuro no focal deficits Results & Data Results & Data ([facility]) Vital Signs (Past 12 Hours) Vital Signs Temp Pulse Resp BP Pulse Ox 07/28/20 15:15 98.1 F 84 18 108/66 97 07/28/20 07:34 97.7 F 92 H 16 106/68 94 PG Care Time/CCT Total # of Minutes Spent Total Time Spent with Patient: Total time spent is greater than 50% in coordination of care (as documented) at patient's floor/unit and/or counseling patient: Coding Level of Care Code 23873 Subseq Hosp Care Lvl 2 Diagnoses Postoperative hypotension I95.89 Intractable back pain M54.9 CAD, multiple vessel I25.10 COPD (chronic obstructive pulmonary disease) J44.9 CKD (chronic kidney disease) N18.9 Diabetes mellitus type 2, controlled E11.9 Pacemaker Z95.0 BPH (benign prostatic hyperplasia) N40.0 DVT prophylaxis Z29.9 Discharge planning issues Z02.9
[2020-07-28] MEDS: ATORVASTATIN 40 MG TAB PO SCH (21:34)
[2020-07-28] MEDS: lamoTRIgine 100 MG TAB PO SCH (21:35)
[2020-07-28] MEDS: ACETAMINOPHEN 500 MG TAB PO PRN (21:45)
[2020-07-28] MEDS: DOCUSATE SODIUM/SENNA 50/8.6MG TAB PO SCH (21:50)
[2020-07-28] MEDS: SENNA 8.6 MG TAB PO SCH (21:50)
[2020-07-29 06:29] LABS: Basophils # (auto) 0.02 K/uL (0-0.2); Basophils % (auto) 0.1 %; Eosinophils # (auto) 0.33 K/uL (0-0.5); Eosinophils % (auto) 2.2 %; Hematocrit (blood only) 25.9 % (42-52); Hemoglobin 8.5 g/dL (14.0-18.0); Immature Granulocytes # (auto) 0.04 K/uL (0.00-0.02); Immature Granulocytes % (auto) 0.3 %; Lymphocytes # (auto) 2.36 K/uL (1.2-3.4); Mean Corpuscular Hemoglobin 32.1 pg (25-34); Mean Corpuscular Hgb Conc 32.8 g/dL (32-36); Mean Corpuscular Volume 97.7 fL (80-100); Mean Platelet Volume 11.2 fL (7.4-10.4); Monocytes # (auto) 1.68 K/uL (0.11-0.59); Monocytes % (auto) 11.4 %; Neutrophils # (auto) 10.35 K/uL (1.4-6.5); Nucleated RBC # (auto) 0.06 K/uL (0-0); Nucleated RBC % (auto) 0.4 %; Platelet Count 314 K/uL (130-400); RDW Standard Deviation 71.7 fL (36.4-46.3); Red Blood Count 2.65 M/uL (4.7-6.1); White Blood Count 14.78 K/uL (4.8-10.8)
[2020-07-29 06:54] LABS: BUN Creatinine Ratio 23.7 (10-20); Calcium 8.2 mg/dl (8.5-10.1); Creatinine Clr Calc Pharmacy 60.1 ml/min; Est GFR (African American) 67.9; Est GFR (Non-African American) 58.6
[2020-07-29 07:00] LABS: Anisocytosis Present; Ovalocytes 1+; Target Cells 1+
[2020-07-29] MEDS: GABAPENTIN 300 MG CAP PO SCH (07:46)
[2020-07-29] MEDS: FLUTICASONE/VILANTEROL 200/25MCG 14 PUFFS/INHALER INH SCH (07:46)
[2020-07-29] MEDS: DONEPEZIL HCL 10 MG TAB PO SCH (07:47)
[2020-07-29] MEDS: PARoxetine HCL 20 MG TAB PO SCH (07:47)
[2020-07-29] MEDS: METOPROLOL TARTRATE 25 MG TAB PO SCH (07:47)
[2020-07-29] MEDS: DULoxetine HCL 60 MG CAP PO SCH (07:47)
[2020-07-29] MEDS: busPIRone 15 MG TAB PO SCH (07:47)
[2020-07-29] MEDS: LIDOCAINE 5% 1 PATCH TD SCH (07:48)
[2020-07-29] MEDS: DOCUSATE SODIUM 100 MG CAP PO SCH (07:49)
[2020-07-29] MEDS: UMECLIDINIUM BROMIDE 62.5MCG/BLISTER 7 PUFFS/INHALER INH SCH (07:49)
[2020-07-29] MEDS: MEMANTINE HCL 5 MG TAB PO SCH (07:51)
[2020-07-29] MEDS: ASPIRIN 81 MG CHEW PO SCH (07:56)
[2020-07-29] MEDS: INSULIN ASPART 100 UNITS/ML 3 ML PEN SC SCH (08:40)
[2020-07-29] MEDS: INSULIN GLARGINE SOLOSTAR 100 UNITS/ML 3 ML PEN SC SCH (08:46)
[2020-07-29] MEDS: FINASTERIDE 5 MG TAB PO SCH (08:47)
--- NOTE | 2020-07-29 08:53 | Cardiology Progress Note ---
Date of Service July 29, 2020 Assessment & Plan (1) Postoperative hypotension: (2) S/P coronary artery stent placement: (3) CAD, multiple vessel: (4) CARTER (dyspnea on exertion): (5) Pacemaker: (6) S/P aortic valve replacement with bioprosthetic valve: (7) Third degree AV block: (8) Cardiomyopathy: ASSESSMENT/PLAN: 1. Postoperative hypotension: Blood pressure has normalized. He responded well to IV fluids and does not appear to be significantly hypervolemic. 2. Multivessel CAD s/p PCI: No angina. Aspirin 81 mg daily is indicated however he prefers to take half of that dose due to bleeding. Will replace metoprolol tartrate with metoprolol succinate. Continue high-intensity statin therapy. 3. Cardiomyopathy: LV systolic function has declined noted both as an outpatient and then further so during this hospitalization. This could be due to acute illness, ischemic heart disease, RV pacing, or other etiology. We discussed cardiac catheterization and he is willing to have it done but does not want have it done during this hospital stay. He would like to go home today and have this done as an outpatient. We discussed the fact that if he comes as an outpatient he will need to undergo further COVID testing. He understands. Cardiac catheterization is not emergent as he is currently feeling at his baseline and has not had angina. He appears euvolemic on exam. Metoprolol succinate in place of metoprolol tartrate. No Entresto or PORTIA-inhibitor at this time given issues with hypotension during this hospital stay. This can be revisited as an outpatient. He does not appear to require diuretics at this time. 4. Third-degree AV block s/p dual chamber pacemaker: Followed by electrophysiology. 5. Bicuspid aortic valve s/p bioprosthetic aortic valve replacement: Appropriately functioning on July 2020 echo. SBE prophylaxis. 6. Thoracic aortic aneurysm: Asymptomatic. Continue beta-nica as tolerated. Avoid heavy lifting for which the Valsalva maneuver is required. 7. Disposition: He does not wish to undergo further testing from a cardiac standpoint during this hospital stay. Close hospital follow-up will be arranged with Cardiology office in [place]. He will likely undergo further echocardiogram with consideration of cardiac catheterization and this LV systolic function significantly improves. Admission and Anticipated Discharge Date Admission Date: July 25, 2020 Subjective He is feeling much better today. He denies chest pain, shortness of breath at rest, orthopnea, syncope, near-syncope, palpitations, edema. His back pain has improved significantly. He still has dyspnea with exertion but states it is no different than usual. He wants to go home today. Review of systems: As above. Physical Exam Physical Exam: Gen.: No acute distress. Alert and oriented. HEENT: Anicteric sclera. Neck: No JVD. Cardiac: No ventricular heave. Regular. Normal rate. Normal S1-S2. 2/6 early peaking systolic ejection murmur best heard at the right upper sternal border. No rubs or gallops. Pulmonary: Clear to auscultation bilaterally without wheezes, rales, or rhonchi. Abdomen: Soft, nontender, nondistended, with normo-active bowel sounds. No bruits noted. Extremities: 2+ bilateral radial pulses. 2+ posterior tibialis pulses bilaterally. No pitting edema. No cyanosis. Psychiatric: Affect appears appropriate. Results & Data ([facility]) Vital Signs (Past 12 Hours) Vital Signs Temp Pulse Resp BP BP Pulse Ox 07/29/20 07:00 36.5 C 73 20 112/65 94 07/28/20 23:06 36.7 C 88 19 92/62 L 93 PG Care Time/CCT Total # of Minutes Spent Total Time Spent with Patient: Total time spent is greater than 50% in coordination of care (as documented) at patient's floor/unit and/or counseling patient: Coding Level of Care Code 07889 Subseq Hosp Care Lvl 3 Diagnoses Postoperative hypotension I95.89 S/P coronary artery stent placement Z95.5 CAD, multiple vessel I25.10 CARTER (dyspnea on exertion) R06.00 Pacemaker Z95.0 S/P aortic valve replacement with bioprosthetic valve Z95.3 Third degree AV block I44.2 Cardiomyopathy I42.9
--- NOTE | 2020-07-29 10:36 | Orthopedic Progress Note ---
Date of Service July 29, 2020 Assessment & Plan (1) Recurrent herniation of lumbar disc: Admission and Anticipated Discharge Date Admission Date: July 25, 2020 Patient at this time is doing very well and most likely discharge home today. I will see him back in the office in 2 weeks to update x-rays review of status. Subjective Patient's back pain is controlled leg symptoms markedly improved Physical Exam Physical Exam: Patient is in the chair at the bedside. He has good strength testing appears comfortable. Results & Data ([facility]) Vital Signs (Past 12 Hours) Vital Signs Temp Pulse Resp BP BP Pulse Ox 07/29/20 07:00 36.5 C 73 20 112/65 94 07/28/20 23:06 36.7 C 88 19 92/62 L 93
--- NOTE | 2020-07-29 18:52 | Discharge Summary ---
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 In May of this year, the patient underwent lumbar decompression with bilateral medial fasciotomies and foraminotomies L2-3 L3-4 with removal of fragments from L2-3. Patient reports that he was completely pain-free without complaints of p ain in his back or radicular symptoms. On Wednesday, the patient notes that he had a sudden development of pain to the anterior aspect of the RIGHT thigh that extends to the knee and back up to the RIGHT groin. He was seen in the emergency department on 07/21 and had imaging studies performed of the lumbar spine and pelvis. Patient sent home on steroids and narcotics. He did schedule a follow-up appointment with his orthopedic surgeon tomorrow, however he reports increasing pain with any attempted movement which prompted visit to the emergency department today. On evaluation in the emergency department, the patient is awake, alert, and oriented. He reports that the morphine for his pain has provided some relief. He reports that he is frustrated that he is having return of pain and that it is worsened over the last several hours. Other than pain over the anterior aspect of the thigh and groin, he denies any complaints of lumbar back pain. Patient denies any loss of control bowel/bladder saddle anesthesia. He rates his current discomfort as a 4/10. He reports the morphine has provided relief. Patient denies any complaints of headaches, dizziness, lightheadedness, chest pain, palpitations, shortness of breath, nausea, vomiting, or abdominal pain. Principal Diagnosis intractable back pain / lumbar disc disease - now improved post op Discharge Exam gen aaox3 pleasant nad heent nc at mmm breathing unlabored no accessory muscles good effort skin no rashes no pallor or icterus neuro no focal deficits Discharge Data Allergies Allergy/AdvReac Type Severity Reaction Status Date / Time bee venom protein (honey bee) Allergy Severe SWELLING Verified 07/23/20 12:39 Sulfa (Sulfonamide Allergy Intermediate "SULFA": Verified 12/15/20 12:39 Antibiotics) RASH Penicillins Allergy Unknown UNKNOWN Verified 07/23/20 12:39 codeine AdvReac Intermediate HALLUCINATI Verified 07/23/20 12:39 NG Consultations 07/23/20 12:52 ED Decision to Admit Stat 07/23/20 17:14 Consult Orthopedic Surgery Routine 07/24/20 09:41 Consult Anesthesiology Routine 07/25/20 06:00 Consult Cardiology Routine 07/25/20 19:25 Consult Case Management - Discharge Planning Routine Procedures Performed Operation Date: 07/25/20 08:30 Actual Procedures p L2-L3 Decompression and Fusion with Instrumentation, Spinal Cord Monitoring(Not Applicable) - Shaheed Brown, Ordered Studies 07/25/20 08:30 FL fluoroscopy <1hr Routine FL lumbar spine 2-3V Routine Hospital Course (1) Postoperative hypotension: slowly improving post op - acceptable and stable for home -temporarily entresto and lasix on hold with close f/u and instructions to call if he gains weight/gets swelling/has dyspnea (2) Intractable back pain: Dr. Brown completed surgery on 07/25 for an L2-3, 3 4 decompression and fusion with instrumentation continue with parenteral pain medications scheduled Tylenol and topical pain medicines as needed. stable for home / outpt PT (3) CAD, multiple vessel: Has a history ofMultivessel CAD s/p Multiple PCI's, Bicuspid Aortic Valve s/p Bioprosthetic AVR 2011, Ascending Aortic Aneurysm, Complete Heart Block s/p Med[employer]onic Dual Chamber Pacemaker 2011, COPD, Dyslipidemia, Hypertension, Prior Pulmonary Emboli following AVR surgery 2011, Carotid Artery Disease, COVID 27 March 2020 and has HFrEF / ischemic cardiomyopathy cardiology planning on [facility] - pt prefers this to be as outpt - reasonable - instructed to not exert much. for now entresto and lasix on temporary hold as above and refilled nitro. to call if any swelling/weight gain/dyspnea as far as instructions on resuming entresto/lasix even sooner than at follow up (4) COPD (chronic obstructive pulmonary disease): home on home inhalers (5) CKD (chronic kidney disease): Chronic kidney disease stage III stable outpt f/u (6) Diabetes mellitus type 2, controlled: home on home meds (7) Pacemaker: (8) BPH (benign prostatic hyperplasia): Patient remains on finasteride with concerns for postoperative Hudson catheter (9) DVT prophylaxis: scds (10) Discharge planning issues: stable on medical. possibly home tomorrow Total Time Total Time Spent Total Time Spent (In Minutes): <30 Discharge Plan Discharge Items Patient Disposition: Home - Home Health Services Reason For Visit: INTRACTABLE BACK PAIN Discharge Diagnosis: disc herniation now improving post op Condition on Discharge: Good Activity: Resume your previous activity Non-emergency contact: Primary Care Provider and Surgeon Call non-emergency contact if: you have any medication questions and your symptoms worsen Follow-up/Referrals: Leandro Rodrigues MD [Primary Care Provider] - Diet: Heart Healthy Daniela Attending Provider Instructions: as we discussed, take it easy until you follow through with cardiology as it relates to your coronary disease short term/ temporary only - we have your entresto and lasix on hold due to your lower blood pressures. as you follow up with Dr Stevens and with cardiology, they will direct you on resuming them. if you gain weight/swelling and/or have worsening shortness of breath call right away for further instructions. likewise hold off on your sildenafil until you've been seen in follow up just to be on the safe side since it can reduce blood pressures too. -ideally follow up with Dr Stevens by the end of this week or eary next week, and with cardiology the following week Daniela Cocoa Powder Mixer Operator Provider Instructions: ACTIVITY RECOMMENDATIONS: SELF CARE INSTRUCTIONS AFTER THORACIC/LUMBAR FUSIONS 1. You may walk to your tolerance. It is good exercise for your legs and back. Expect some back and intermittent leg aches and pains. 2. You may perform "counter-top" level activities (make a sandwich, anderson with a project, etc.). 3. No bending or lifting of more than 10 pounds or back twisting of any nature (roll like a log when turning in bed). 4. You may ride in a car for 20-30 minutes at a time. No driving until after your first visit with your doctor. 5. Frequent changes of position and restricting sitting to 30 minutes at a time will help limit the amount of back spasms and stiffness you may experience. 6. You may discontinue the use of ambulatory aids (cane, crutches, etc.) once your strength and confidence allow. 7. You may loading unit operator powder charging the shower and let water strike your incision when you arrive home at least once daily. Do not take a tub bath, sit in a hot tub or go into a swimming pool until after your first recheck in the office. SPECIAL CARE INSTRUCTIONS: VERY IMPORTANT TO READ AND REVIEW A. Your surgical incision has been closed with a cosmetic suture under the skin that will dissolve in about 6 weeks. In 14 days, you can use a pair of clean scissors and cut the suture that is left outside of the skin at the ends of your incision. 1. The small skin tapes can be removed 7 days after surgery if they have not fallen off by that point. 2. You may keep the wound open to air as much as possible to promote healing after post-op day number 5 unless told otherwise by your doctor. 3. If you think the wound looks like it is becoming infected (redness or worsening drainage) and/or you are experiencing fever, chill or worsening back pain and muscle spasms, contact the office so that we may evaluate you as soon as possible. B. Complications are uncommon, but please contact us if you have any signs or symptoms of: 1. wound infection (fever higher than 102.5 degrees F, redness, separation of wound, drainage, or increasing pain from the incision) 2. blood clots in legs (pain, swelling, redness and warmth in legs) 3. urinary tract infection (fever higher than 102.5 degrees F, burning upon urination or increased frequency of urination) 4. nerve problems (inability to walk on your toes or heels, numbness, loss of bowel or bladder control) 5. any other symptoms that concern you C. Please call the office at if you have any concerns or questions about your operation or recovery. D. No smoking! Smoking drastically decreases the chance of a solid fusion. E. Do not take any anti-inflammatory medications (Indocin, Advil, Motrin, Aspirin, Naprosyn, etc.) as these may inhibit the chance of a solid fusion. Tylenol is okay to take for pain. MANAGING PAIN AFTER SPINAL SURGERY 1. Narcotic medication is intended for short-term use and will be provided for surgical pain. Surgical pain usually lasts for a period of 4-6 weeks. Narcotic medication includes Percocet, Vicodin, Darvocet, Tylenol #3 or Lortab. 2. Longer-term pain is more appropriately treated with non-narcotic medication such as Tylenol ES. 3. Muscle spasm is not appropriately treated with narcotics. Muscle relaxers such as Soma, Flexeril or Skelaxin can be used along with Tylenol ES. 4. Remember that we all live with some "aches and pains". This is not unusual or uncommon after an injury or as we get older. a. Back pain is expected and may include muscle spasms for 4 to 6 weeks after surgery. The pain should gradually improve. If the pain worsens for no apparent reason, please contact the office. b. Intermittent leg pain may also be experienced and should not be concerned about unless it worsens for no apparent reason. If so, please contact the office. 5. We will provide appropriate medication within the normal guidelines of their prescribed use. We will also be very cautious and aware of potential abuse and extended duration of patients' medication needs. a. Pain medications are for your comfort and to assist with sleep and rest so that the tissue can heal. They are not provided in order to return to normal activity and should not be used through the day. To do so or worsening pain at night can result from ongoing tissue damage and development of tolerance to the prescribed medicine. 6. Please allow 2-3 days to process refills. Prescriptions will not be mailed but must be picked up at the office. FOLLOW UP VISIT: Keep your scheduled follow-up appointment. Any questions, please call the office at . Pending Studies at Discharge: No Stand-Alone Forms: My [facility], Smoking Cessation Medications and DC Order Prescriptions: Continued glimepiride 4 mg tablet 4 mg PO BID Qty: 180 RF: 1 budesonide-formoterol [Symbicort] 160-4.5 mcg/actuation HFA aerosol inhaler 2 puff inhalation BID RF: 0 Lantus Solostar U-100 Insulin 100 unit/mL (3 mL) insulin pen 30 units SUBCUT BID RF: 0 acetaminophen [Tylenol Extra Strength] 500 mg Tablet 1,000 mg PO TID PRN (Reason: Pain) RF: 0 albuterol sulfate [ProAir HFA] 90 mcg/actuation HFA aerosol inhaler 2 puffs INH Q4H PRN (Reason: shortness of breath or wheezing) RF: 0 paroxetine HCl 20 mg Tablet 20 mg PO QAM RF: 0 buspirone 30 mg Tablet 30 mg PO TID RF: 0 Spiriva with HandiHaler 18 mcg Capsule, W/Inhalation Device 1 cap INHALATION QAM RF: 0 Onglyza 5 mg Tablet 5 mg PO QAM RF: 0 clindamycin HCl 300 mg capsule 600 mg PO DIRECTED PRN (Reason: PRIOR TO DENTAL WORK.) RF: 0 oxycodone 5 mg tablet 5 mg PO Q6H PRN (Reason: pain) Qty: 14 RF: 0 sennosides [Senokot] 8.6 mg tablet 8.6 mg PO HS Qty: 30 RF: 0 docusate sodium [Colace] 100 mg capsule 100 mg PO BID Qty: 60 RF: 0 finasteride 5 mg Tablet 5 mg PO QAM RF: 0 epinephrine [EpiPen] 0.3 mg/0.3 mL Auto-Injector 0.3 mg IM Q3H PRN (Reason: Allergy Symptoms) RF: 0 metoprolol tartrate 25 mg Tablet 12.5 mg PO BID RF: 0 gabapentin 300 mg Capsule 300 mg PO QID RF: 0 duloxetine 60 mg Capsule,Delayed Release(Dr/Ec) 60 mg PO QAM RF: 0 lamotrigine 200 mg Tablet 200 mg PO HS RF: 0 hydrocortisone 2.5 % Ointment 1 applic TOPICAL HS PRN (Reason: Itching) RF: 0 atorvastatin [Lipitor] 40 mg Tablet 40 mg PO HS RF: 0 donepezil 10 mg Tablet 10 mg PO QAM RF: 0 memantine 5 mg Tablet 5 mg PO BID RF: 0 aspirin 81 mg tablet,delayed release (DR/EC) 40.5 mg PO QAM RF: 0 tramadol [Ultram] 50 mg tablet 50 mg PO Q4H PRN (Reason: pain) Qty: 20 RF: 0 nitroglycerin [Nitrostat] 0.4 mg tablet, sublingual 0.4 mg Sublingual DIRECTED PRN (Reason: Chest Pain) Qty: 30 RF: 0 Discontinued Entresto 24-26 mg tablet 1 tab PO BID Qty: 180 RF: 3 sildenafil 25 mg Tablet 25 - 125 mg PO DAILY PRN (Reason: 30-60 MIN. PRIOR TO INTERCOURSE) RF: 0 furosemide [Lasix] 20 mg Tablet 20 mg PO QAM RF: 0 Discharge Orders: Discharge Order (Routine); Ordered 07/29/20 Ordered By: Denis Lezama/Other Patient Handouts: High Blood Sugar (Hyperglycemia), Managing Type 2 Diabetes Admission Data Admit Date/Time: 07/25/20 08:54 Attending Provider: Denis Rashid Admit Provider: Lam Carter Primary Care Provider: Leandro Rodrigues Other Providers: Lam Carter ; Shaheed Brown Upendra ; Donato Echeverria Other Interventions: Discharge Summary Assessment (RN) Last Done: 07/29/20 12:04 Coding Level of Care Code D/C Day Management <30 mins Diagnoses Postoperative hypotension I95.89 Intractable back pain M54.9 CAD, multiple vessel I25.10 COPD (chronic obstructive pulmonary disease) J44.9 CKD (chronic kidney disease) N18.9 Diabetes mellitus type 2, controlled E11.9 Pacemaker Z95.0 BPH (benign prostatic hyperplasia) N40.0 DVT prophylaxis Z29.9 Discharge planning issues Z02.9
[2020-07-30] MEDS ORDERED: METOPROLOL SUCC 25MG EXT REL TAB PO SCH (09:00)
== END 2020-07-29 12:29 | disposition home or self-care (01) | DRG 454 ==
LOC: 3N 10:43 → ED 10:43 → 3N 15:57 → SUATTDRO 07-25 08:54 → 1E 07-25 14:55 → 3W 07-27 15:30

== ENCOUNTER 2020-07-30 11:21 | Inpatient (IN) ==
[2020-07-30] MEDS ORDERED: SODIUM CHLORIDE 0.9% 500 ML IV SCH (12:15)
--- NOTE | 2020-07-30 12:17 | Emergency Department Note ---
History of Present Illness General Chief complaint: Hypotension Stated complaint: BACK PAIN POST OP, FALLEN X2 Time Seen by Provider: 07/30/20 11:46 Source: patient Mode of arrival: wheelchair Limitations: no limitations History of Present Illness Provider complaint: Back pain Maximum Pain Intensity: 10 This is a 75-year-old male who presents to the ED with a chief complaint of low back pain. The patient states that he had back surgery last week and was discharged yesterday from the hospital. He states that during his stay they did an echocardiogram that was abnormal and his glaucoma specialist, Dr. Saba, recommended a cardiac catheterization. The patient stated yesterday that he was here long enough and decided to go home. When he got home last night, he fell twice because of weakness and some lightheadedness. He states that he was concerned about hurting his back. He states that he has generalized body aches. If he gets up too fast, his lightheadedness seems worse. His initial blood pressure when he came in today was 86/51.The patient reports generalized weakness. Home Medications Medication Instructions Recorded Confirmed Type epinephrine [EpiPen] 0.3 mg IM Q3H PRN 10/21/18 07/23/20 History finasteride 5 mg PO QAM 10/21/18 07/23/20 History metoprolol tartrate 12.5 mg PO BID 10/21/18 07/23/20 History atorvastatin [Lipitor] 40 mg PO HS 10/22/18 07/23/20 History donepezil 10 mg PO QAM 10/22/18 07/23/20 History duloxetine 60 mg PO QAM 10/22/18 07/23/20 History gabapentin 300 mg PO QID 10/22/18 07/23/20 History hydrocortisone 1 applic TOPICAL HS PRN 10/22/18 07/23/20 History lamotrigine 200 mg PO HS 10/22/18 07/23/20 History memantine 5 mg PO BID 10/22/18 07/23/20 History aspirin 81 mg tablet,delayed 40.5 mg PO QAM tab 04/03/19 07/23/20 History release insulin glargine 100 unit/mL (3 30 units SUBCUT BID ml 07/25/19 07/23/20 History mL) subcutaneous pen acetaminophen [Tylenol Extra 1,000 mg PO TID PRN 03/18/20 07/23/20 History Strength] albuterol sulfate [ProAir HFA] 2 puffs INH Q4H PRN 03/18/20 07/23/20 History tramadol [Ultram] 50 mg PO Q4H PRN #20 tab 05/12/20 07/23/20 Rx budesonide-formoterol HFA 160 2 puff INHALATION BID 05/21/20 07/23/20 History mcg-4.5 mcg/actuation aerosol inhaler glimepiride 4 mg tablet 4 mg PO BID #180 tab 06/21/20 07/23/20 Rx Onglyza 5 mg PO QAM 07/21/20 07/23/20 History Spiriva with HandiHaler 1 cap INHALATION QAM 07/21/20 07/23/20 History buspirone 30 mg PO TID 07/21/20 07/23/20 History clindamycin HCl 600 mg PO DIRECTED PRN 07/21/20 07/23/20 History paroxetine HCl 20 mg PO QAM 07/21/20 07/23/20 History docusate sodium [Colace] 100 mg PO BID #60 cap 07/22/20 07/23/20 Rx oxycodone 5 mg PO Q6H PRN #14 tab 07/22/20 07/23/20 Rx sennosides [Senokot] 8.6 mg PO HS #30 tab 07/22/20 07/23/20 Rx nitroglycerin [Nitrostat] 0.4 mg SUBLINGUAL DIRECTED PRN 07/29/20 Rx #30 tab Allergies Allergy/AdvReac Type Severity Reaction Status Date / Time bee venom protein (honey bee) Allergy Severe SWELLING Verified 07/23/20 12:39 Sulfa (Sulfonamide Allergy Intermediate "SULFA": Verified 07/23/20 12:39 Antibiotics) RASH Penicillins Allergy Unknown UNKNOWN Verified 07/23/20 12:39 codeine AdvReac Intermediate HALLUCINATI Verified 07/23/20 12:39 NG Past Med/Surg History Medical History Anemia Aneurysm of ascending aorta Asthma with COPD Bicuspid aortic valve replaced with bioprosthetic valve BPH (benign prostatic hyperplasia) CAD (coronary artery disease) Cardiomyopathy Carotid artery stenosis CKD (chronic kidney disease) COPD (chronic obstructive pulmonary disease) Dementia HTN (hypertension), benign Hyperlipidemia Lumbar radiculopathy Myelodysplastic syndrome Myocardial infarction Pacemaker Placed after AVR due to complete heart block Renal insufficiency TIA (transient ischemic attack) Surgical History H/O cardiac catheterization H/O endoscopic retrograde cholangiopancreatography History of back surgery 05/10/2020 Grade 2 view with Mac 3 blade History of colonoscopy History of repair of rotator cuff History of tonsillectomy Hx of cholecystectomy S/P aortic valve replacement S/P coronary artery stent placement S/P right knee surgery Status post cardiac pacemaker procedure for h/o complete heart block s/p his AVR Family History Sister Anxiety Brother Alcohol abuse Father Cardiac disorder Myocardial infarction Mother Depression Kidney disease Lung disease Stroke Other Family history non-contributory Denies family history of Ovarian cancer Prostate cancer Breast cancer Colorectal cancer Social History Smoking Status: Former smoker Tobacco Type: Cigarettes Age Quit Using Tobacco: 64; Cigarettes Per Day: Random cigarette usage; Second Hand Exposure: No; Hx Alcohol Use: Yes Alcohol type: hard liquor Hx Substance Use: No Preferred Language: [place] Communication Ability: Effective Visual Impairment: No Limitations Hearing Ability: Use of Hearing Aid Marketing Database Coordinator Required: No Beliefs That Will Affect Care: None marital status: Current Living Situation: Spouse Current Living Situation Comment: House Feels Safe at Home: Yes Childhood Exposure to Second-Hand Smoke: Yes Seatbelt Use: always Sunscreen Use: Yes Assistive Devices: Glasses, Hearing Aid - Bilateral and Walker Review of Systems A total of 10 systems reviewed and were otherwise negative Physical Exam Vital Signs Vital Signs - 24 hr 07/30/20 11:34 07/30/20 11:53 07/30/20 12:20 Temperature 36.9 C Temperature Source Temporal Artery Scan Pulse Rate - Lying 77 Pulse Rate - Sitting 66 Pulse Rate - Standing 74 Pulse Rate 78 Pulse Rate [Apical] 79 Pulse Rhythm [Apical] Pulse Strength [Apical] Respiratory Rate 18 16 Respiratory Effort / Characteristics Non-Labored Spontaneous Respiratory Depth Normal Respiratory Pattern Regular Blood Pressure - Lying 108/80 Blood Pressure - Sitting 94/55 L Blood Pressure- Standing 88/49 L Blood Pressure 86/51 L Blood Pressure [Right Arm] 108/59 L Blood Pressure Mean 62 Blood Pressure Mean [Right Arm] 75 Blood Pressure Position Sitting Blood Pressure Position [Right Arm] Pulse Oximetry 96 97 98 Oxygen Delivery Method Room Air Room Air Room Air Sepsis Recent Fever Within 48 Hours No Sepsis New/Unexplained Change in Mental Status N/A Sepsis Action Taken by Nursing No Action Required 07/30/20 12:57 Temperature Temperature Source Pulse Rate - Lying Pulse Rate - Sitting Pulse Rate - Standing Pulse Rate Pulse Rate [Apical] 71 Pulse Rhythm [Apical] Regular Pulse Strength [Apical] Normal Respiratory Rate 22 Respiratory Effort / Characteristics Non-Labored Respiratory Depth Normal Respiratory Pattern Regular Blood Pressure - Lying Blood Pressure - Sitting Blood Pressure- Standing Blood Pressure Blood Pressure [Right Arm] 108/71 Blood Pressure Mean Blood Pressure Mean [Right Arm] 83 Blood Pressure Position Blood Pressure Position [Right Arm] Sitting Pulse Oximetry 96 Oxygen Delivery Method Room Air Sepsis Recent Fever Within 48 Hours Sepsis New/Unexplained Change in Mental Status Sepsis Action Taken by Nursing CONSTITUTIONAL/VITAL SIGNS: Reviewed / noted above. GENERAL: Non-toxic in appearance. INTEGUMENTARY: Warm, dry, and [place]. HEAD: Normocephalic. EYES: without scleral icterus or trauma. ENT/OROPHARYNX: clear and moist. LYMPHADENOPATHY/NECK: Is supple without lymphadenopathy or meningismus. RESPIRATORY: Lungs clear and equal. CARDIOVASCULAR: Regular rate and rhythm. GI/ABDOMEN: Soft and nontender. No organomegaly or pulsatile mass. No rebound or guarding. Normal bowel sounds. EXTREMITIES: Warm and well perfused. BACK: No CVA tenderness. There midline scars in the back from the recent surgery. There are some mild swelling in the area but no obvious infection or redness. NEUROLOGICAL: Intact without focal deficits. PSYCHIATRIC: normal affect. MUSCULOSKELETAL: Normally developed with good muscle tone. TRIAGE NURSING DOCUMENTATION REVIEWED. Course Administered Medications Discontinued Medications Sodium Chloride (Nss) 500 mls @ 999 mls/hr IV .Q31M [facility] Stop: 07/30/20 12:45 Last Infusion: 07/30/20 12:51 Dose: 0 mls/hr Documented by: [id number] Admin: 07/30/20 12:22 Dose: 999 mls/hr Documented by: [id number] Medical Decision Making Differential Diagnosis Differential includes acute coronary syndrome, myocardial infarction, CVA, TIA, anemia, infection, pneumonia, UTI, pyelonephritis, poor nutrition, dehydration, electrolyte disturbance,hypoglycemia. Medical Records Attestation: I reviewed the patient's medical records. Home Medications Current Medication List: was personally reviewed by me Laboratory Data Attestation: I reviewed the patient's lab results. Result diagrams: 07/30/20 12:20 07/30/20 12:20 Lab Results 07/30/20 07/30/20 07/30/20 Range/Units 12:20 12: 12:20 WBC 19.30 H (4.8-10.8) K/uL RBC 2.77 L (4.7-6.1) M/uL Hgb 8.7 L (14.0-18.0) g/dL Hct 26.8 L (42-52) % MCV 96.8 (80-100) fL MCH 31.4 (25-34) pg MCHC 32.5 (32-36) g/dL RDW Std Deviation 70.2 H (36.4-46.3) fL RDW Coeff of Linda 19.9 H (11.5-14.5) % Plt Count 367 (130-400) K/uL MPV 10.4 (7.4-10.4) fL Immature Gran % (Auto) 0.5 % Neut % (Auto) 83.2 % Lymph % (Auto) 7.5 % [place] % (Auto) 7.8 % Eos % (Auto) 0.9 % Baso % (Auto) 0.1 % Neut # (Auto) 16.08 H (1.4-6.5) K/uL Lymph # (Auto) 1.44 (1.2-3.4) K/uL [place] # (Auto) 1.50 H (0.11-0.59) K/uL Eos # (Auto) 0.17 (0-0.5) K/uL Baso # (Auto) 0.02 (0-0.2) K/uL Immature Gran # (Auto) 0.09 H (0.00-0.02) K/uL Absolute Nucleated RBC 0.12 H (0-0) K/uL Nucleated RBC % (auto) 0.6 % PT 11.1 (9.0-12.0) Seconds INR 1.1 (0.9-1.1) Sodium 135 L (136-145) mmol/L Potassium 4.5 (3.5-5.1) mmol/L Chloride 102 (98-107) mmol/L Carbon Dioxide 27 (21-32) mmol/L Anion Gap 6.0 (3-11) BUN 29 H (7-18) mg/dl Creatinine 1.43 H (0.6-1.4) mg/dl Est Cr Clr Drug Dosing 50.8 ml/min Est GFR ( Amer) 55.5 Est GFR (Non-Af Amer) 47.9 BUN/Creatinine Ratio 20.1 H (10-20) Glucose 269 H (70-99) mg/dl Calcium 8.5 (8.5-10.1) mg/dl Total Bilirubin 1.4 H (0.2-1) mg/dl AST 19 (15-37) U/L ALT 19 (12-78) U/L Alkaline Phosphatase 116 (45-117) U/L Troponin I 0.055 H* (0-0.045) ng/ml Total Protein 6.9 (6.4-8.2) gm/dl Albumin 3.1 L (3.4-5.0) gm/dl Globulin 3.8 (2.5-4.0) gm/dl Albumin/Globulin Ratio 0.8 L (0.9-2) SARS-CoV-2 Ag (Rapid) (Negative) 07/30/20 Range/Units 12:20 WBC (4.8-10.8) K/uL RBC (4.7-6.1) M/uL Hgb (14.0-18.0) g/dL Hct (42-52) % MCV (80-100) fL MCH (25-34) pg MCHC (32-36) g/dL RDW Std Deviation (36.4-46.3) fL RDW Coeff of Linda (11.5-14.5) % Plt Count (130-400) K/uL MPV (7.4-10.4) fL Immature Gran % (Auto) % Neut % (Auto) % Lymph % (Auto) % [place] % (Auto) % Eos % (Auto) % Baso % (Auto) % Neut # (Auto) (1.4-6.5) K/uL Lymph # (Auto) (1.2-3.4) K/uL [place] # (Auto) (0.11-0.59) K/uL Eos # (Auto) (0-0.5) K/uL Baso # (Auto) (0-0.2) K/uL Immature Gran # (Auto) (0.00-0.02) K/uL Absolute Nucleated RBC (0-0) K/uL Nucleated RBC % (auto) % PT (9.0-12.0) Seconds INR (0.9-1.1) Sodium (136-145) mmol/L Potassium (3.5-5.1) mmol/L Chloride (98-107) mmol/L Carbon Dioxide (21-32) mmol/L Anion Gap (3-11) BUN (7-18) mg/dl Creatinine (0.6-1.4) mg/dl Est Cr Clr Drug Dosing ml/min Est GFR ( Amer) Est GFR (Non-Af Amer) BUN/Creatinine Ratio (10-20) Glucose (70-99) mg/dl Calcium (8.5-10.1) mg/dl Total Bilirubin (0.2-1) mg/dl AST (15-37) U/L ALT (12-78) U/L Alkaline Phosphatase (45-117) U/L Troponin I (0-0.045) ng/ml Total Protein (6.4-8.2) gm/dl Albumin (3.4-5.0) gm/dl Globulin (2.5-4.0) gm/dl Albumin/Globulin Ratio (0.9-2) SARS-CoV-2 Ag (Rapid) Negative (Negative) Imaging Data Radiologist's Impression: XR chest 1V portable CLINICAL HISTORY: weakness COMPARISON STUDY: 05/07/2020 FINDINGS: The heart is mildly enlarged. There are postsurgical changes of midline sternotomy. There is no failure. There is a left subclavian dual-chamber central venous pacemaker. There are linear right basilar opacities likely atelectatic although an infectious/inflammatory processes could appear similar. There is calcified left lower lung zone granuloma.[ IMPRESSION: 1. Mild cardiomegaly 2. Right basilar opacities. Atelectasis favored over a pneumonia. ECG Data Attestation: I personally reviewed and interpreted this ECG as follows: Indication: + weakness Rate (beats per minute): 74 Rhythm: + other (Paced ventricular rhythm) ECG ST segments: no ST elevation ECG Findings: no PVCs MDM Narrative Patient presents with concerns about his back after falling twice after being discharged from the hospital yesterday evening. The patient reports generalized weakness as well as some lightheadedness especially that seems to be worse with standing up. His vital signs showed orthostasis here. Initial blood pressure was 86/51. When he came back his initial blood pressure was 109 systolic lying down. Standing up because of the blood pressure dropped to 80 systolic. The patient has reportedly had an abnormal echocardiogram during his most recent admission for back surgery. He has no additional complaints at this time. Twelve-lead EKG shows a paced ventricular rhythm. Rate of 74. Covid test is negative. White blood cell count is 19.3. Hemoglobin is 8.7. BUN is 29. Creatinine is 1.43. Troponin is elevated at 0.055. Glucose is 269. Chest x- ray did not show acute process. X-ray of the lumbar spine did not show acute process. The patient was told the results. He will require inpatient evaluation for his abnormalities on his test results. He will be seen by the hospitalist. Impression & Plan Weakness, Anemia, Leukocytosis, Elevated troponin, Acute hyperglycemia, Orthostatic hypotension, Acute dehydration Discharge Plan Visit Data Chief Complaint: Hypotension Stated Complaint: BACK PAIN POST OP, FALLEN X2 ED Provider: Dawson Mota Discharge Problem: Weakness, Anemia, Leukocytosis, Elevated troponin, Acute hyperglycemia, Orthostatic hypotension, Acute dehydration Patient Disposition: Being Evaluated by Hospitalist Forms Stand Alone Forms: [facility] [place]no Prescriptions Prescriptions: No Action glimepiride 4 mg tablet 4 mg PO BID Qty: 180 RF: 1 budesonide-formoterol [Symbicort] 160-4.5 mcg/actuation HFA aerosol inhaler 2 puff inhalation BID RF: 0 Lantus Solostar U-100 Insulin 100 unit/mL (3 mL) insulin pen 30 units SUBCUT BID RF: 0 acetaminophen [Tylenol Extra Strength] 500 mg Tablet 1,000 mg PO TID PRN (Reason: Pain) RF: 0 albuterol sulfate [ProAir HFA] 90 mcg/actuation HFA aerosol inhaler 2 puffs INH Q4H PRN (Reason: shortness of breath or wheezing) RF: 0 paroxetine HCl 20 mg Tablet 20 mg PO QAM RF: 0 buspirone 30 mg Tablet 30 mg PO TID RF: 0 Spiriva with HandiHaler 18 mcg Capsule, W/Inhalation Device 1 cap INHALATION QAM RF: 0 Onglyza 5 mg Tablet 5 mg PO QAM RF: 0 clindamycin HCl 300 mg capsule 600 mg PO DIRECTED PRN (Reason: PRIOR TO DENTAL WORK.) RF: 0 oxycodone 5 mg tablet 5 mg PO Q6H PRN (Reason: pain) Qty: 14 RF: 0 sennosides [Senokot] 8.6 mg tablet 8.6 mg PO HS Qty: 30 RF: 0 docusate sodium [Colace] 100 mg capsule 100 mg PO BID Qty: 60 RF: 0 finasteride 5 mg Tablet 5 mg PO QAM RF: 0 epinephrine [EpiPen] 0.3 mg/0.3 mL Auto-Injector 0.3 mg IM Q3H PRN (Reason: Allergy Symptoms) RF: 0 metoprolol tartrate 25 mg Tablet 12.5 mg PO BID RF: 0 gabapentin 300 mg Capsule 300 mg PO QID RF: 0 duloxetine 60 mg Capsule,Delayed Release(Dr/Ec) 60 mg PO QAM RF: 0 lamotrigine 200 mg Tablet 200 mg PO HS RF: 0 hydrocortisone 2.5 % Ointment 1 applic TOPICAL HS PRN (Reason: Itching) RF: 0 atorvastatin [Lipitor] 40 mg Tablet 40 mg PO HS RF: 0 donepezil 10 mg Tablet 10 mg PO QAM RF: 0 memantine 5 mg Tablet 5 mg PO BID RF: 0 aspirin 81 mg tablet,delayed release (DR/EC) 40.5 mg PO QAM RF: 0 tramadol [Ultram] 50 mg tablet 50 mg PO Q4H PRN (Reason: pain) Qty: 20 RF: 0 nitroglycerin [Nitrostat] 0.4 mg tablet, sublingual 0.4 mg Sublingual DIRECTED PRN (Reason: Chest Pain) Qty: 30 RF: 0 Referrals Referrals: Leandro Rodrigues MD [Primary Care Provider] -
[2020-07-30 12:38] LABS: Basophils # (auto) 0.02 K/uL (0-0.2); Basophils % (auto) 0.1 %; Eosinophils # (auto) 0.17 K/uL (0-0.5); Eosinophils % (auto) 0.9 %; Hematocrit (blood only) 26.8 % (42-52); Hemoglobin 8.7 g/dL (14.0-18.0); Immature Granulocytes # (auto) 0.09 K/uL (0.00-0.02); Immature Granulocytes % (auto) 0.5 %; Lymphocytes # (auto) 1.44 K/uL (1.2-3.4); Lymphocytes % (auto) 7.5 %; Mean Corpuscular Hemoglobin 31.4 pg (25-34); Mean Corpuscular Hgb Conc 32.5 g/dL (32-36); Mean Corpuscular Volume 96.8 fL (80-100); Mean Platelet Volume 10.4 fL (7.4-10.4); Monocytes % (auto) 7.8 %; Neutrophils # (auto) 16.08 K/uL (1.4-6.5); Neutrophils % (auto) 83.2 %; Nucleated RBC # (auto) 0.12 K/uL (0-0); Nucleated RBC % (auto) 0.6 %; Platelet Count 367 K/uL (130-400); RDW Coefficient of Variation 19.9 % (11.5-14.5); RDW Standard Deviation 70.2 fL (36.4-46.3); Red Blood Count 2.77 M/uL (4.7-6.1)
[2020-07-30 12:54] LABS: Albumin Level 3.1 gm/dl (3.4-5.0); BUN Creatinine Ratio 20.1 (10-20); Calcium 8.5 mg/dl (8.5-10.1); Creatinine Clr Calc Pharmacy 50.8 ml/min; Est GFR (African American) 55.5; Est GFR (Non-African American) 47.9; Potassium 4.5 mmol/L (3.5-5.1)
[2020-07-30 12:57] LABS: INR 1.1 (0.9-1.1); Prothrombin Time 11.1 Seconds (9.0-12.0)
[2020-07-30 13:03] LABS: Albumin Globulin Ratio 0.8 (0.9-2); Bilirubin,Total 1.4 mg/dl (0.2-1); Globulin 3.8 gm/dl (2.5-4.0); Total Protein 6.9 gm/dl (6.4-8.2); Troponin I 0.055 ng/ml (0-0.045)
--- NOTE | 2020-07-30 13:48 | History & Physical Report ---
Date of Service July 30, 2020 Assessment & Plan (1) Weakness: Weakness and falling at home because likely multifactorial rule out metabolic causes such as urinary infection by getting a UA and if abnormal getting a culture. Chest x-ray is unremarkable for infection. This could be result of his cardiomyopathy. He is to has acute blood loss anemia postoperatively we will transfuse him 1 unit of packed red blood cells have a cardiology consultation will trend his troponins as listed below and treat his diabetes which is in poor control (2) Cardiomyopathy: history of Multivessel CAD s/p Multiple PCI's, Bicuspid Aortic Valve s/p Bioprosthetic AVR 2011, Ascending Aortic Aneurysm, Complete Heart Block s/p [employer] Dual Chamber Pacemaker 2011, COPD, Dyslipidemia, Hypertension, Prior Pulmonary Emboli following AVR surgery 2011, Carotid Artery Disease, COVID 27 March 2020 Echocardiogram from 07/26/2020 shows moderately dilated left ventricle with severely reduced systolic function with an EF of 25 to 30% global hypokinesis On 29 July, Dr. Saba noted that his ejection fraction had declined and there was discussion of cardiac catheterization to evaluate for ischemic etiology of reduction in function however the patient wishes to go home and since it was not felt to be emergent this was considered to be postponed to the future. With the face patient falling at home with lower blood pressures will rule out secondary causes of metabolic encephalopathy however the etiology of his hospital stay could be from his heart failure reduced ejection fraction/systolic heart failure and lower blood pressures causing poor perfusion and falling. Patient's troponin mildly elevated 0.05 these will be trended. Patient be continued on aspirin at this time low-dose metoprolol His EKG shows paced rhythm Chest x-ray does not show overt heart failure at this time (3) Anemia: Patient has acute blood loss anemia this could be impacting his hypotension the patient be transfused 1 unit of packed red blood cells given his profound cardiomyopathy diuretic therapy will be considered but will be based upon his blood pressure response to infusion of packed red blood cells (4) COPD (chronic obstructive pulmonary disease): Patient be continued on budesonide formoterol, proair as needed and Spiriva (5) CKD (chronic kidney disease): Typically is chronic kidney disease stage III (6) Diabetes mellitus type 2, controlled: Patient typically is on glimepiride plus alogliptin his glucoses are moderately elevated likely due to some perioperative steroid use. These will be held and he will be put on sliding scale insulin but the possibility of using long-acting insulin (7) Pulmonary embolism: (8) Pacemaker: History of Present Illness Primary Care Provider: Leandro Rodrigues MD 75-year-old male who presents to the ED with a chief complaint of low back pain. The patient states that he had back surgery last week and was discharged yesterday from the hospital. He states that during his stay they did an echocardiogram that was abnormal and his cook morning, Dr. Saba, recommended a cardiac catheterization. The patient stated yesterday that he was here long enough and decided to go home. When he got home last night, he fell twice because of weakness and some lightheadedness. He states that he was concerned about hurting his back. He states that he has generalized body aches. If he gets up too fast, his lightheadedness seems worse. His initial blood pressure when he came in today was 86/51.The patient reports generalized weakness. Allergies Allergy/AdvReac Type Severity Reaction Status Date / Time bee venom protein (honey bee) Allergy Severe SWELLING Verified 07/23/20 12:39 Sulfa (Sulfonamide Allergy Intermediate "SULFA": Verified 07/23/20 12:39 Antibiotics) RASH Penicillins Allergy Unknown UNKNOWN Verified 07/23/20 12:39 codeine AdvReac Intermediate HALLUCINATI Verified 07/23/20 12:39 NG Home Medications Medication Instructions Recorded Confirmed Type epinephrine [EpiPen] 0.3 mg IM Q3H PRN 10/21/18 07/23/20 History finasteride 5 mg PO QAM 10/21/18 07/23/20 History metoprolol tartrate 12.5 mg PO BID 10/21/18 07/23/20 History atorvastatin [Lipitor] 40 mg PO HS 10/22/18 07/23/20 History donepezil 10 mg PO QAM 10/22/18 07/23/20 History duloxetine 60 mg PO QAM 10/22/18 07/23/20 History gabapentin 300 mg PO QID 10/22/18 07/23/20 History hydrocortisone 1 applic TOPICAL HS PRN 10/22/18 07/23/20 History lamotrigine 200 mg PO HS 10/22/18 07/23/20 History memantine 5 mg PO BID 10/22/18 07/23/20 History aspirin 81 mg tablet,delayed 40.5 mg PO QAM tab 04/03/19 07/23/20 History release insulin glargine 100 unit/mL (3 30 units SUBCUT BID ml 07/25/19 07/23/20 History mL) subcutaneous pen acetaminophen [Tylenol Extra 1,000 mg PO TID PRN 03/18/20 07/23/20 History Strength] albuterol sulfate [ProAir HFA] 2 puffs INH Q4H PRN 03/18/20 07/23/20 History tramadol [Ultram] 50 mg PO Q4H PRN #20 tab 05/12/20 07/23/20 Rx budesonide-formoterol HFA 160 2 puff INHALATION BID 05/21/20 07/23/20 History mcg-4.5 mcg/actuation aerosol inhaler glimepiride 4 mg tablet 4 mg PO BID #180 tab 06/21/20 07/23/20 Rx Onglyza 5 mg PO QAM 07/21/20 07/23/20 History Spiriva with HandiHaler 1 cap INHALATION QAM 07/21/20 07/23/20 History buspirone 30 mg PO TID 07/21/20 07/23/20 History clindamycin HCl 600 mg PO DIRECTED PRN 07/21/20 07/23/20 History paroxetine HCl 20 mg PO QAM 07/21/20 07/23/20 History docusate sodium [Colace] 100 mg PO BID #60 cap 07/22/20 07/23/20 Rx oxycodone 5 mg PO Q6H PRN #14 tab 07/22/20 07/23/20 Rx sennosides [Senokot] 8.6 mg PO HS #30 tab 07/22/20 07/23/20 Rx nitroglycerin [Nitrostat] 0.4 mg SUBLINGUAL DIRECTED PRN 07/29/20 Rx #30 tab Past Med/Surg History Medical History Anemia Aneurysm of ascending aorta Asthma with COPD Bicuspid aortic valve replaced with bioprosthetic valve BPH (benign prostatic hyperplasia) CAD (coronary artery disease) Cardiomyopathy Carotid artery stenosis CKD (chronic kidney disease) COPD (chronic obstructive pulmonary disease) Dementia HTN (hypertension), benign Hyperlipidemia Lumbar radiculopathy Myelodysplastic syndrome Myocardial infarction Pacemaker Placed after AVR due to complete heart block Renal insufficiency TIA (transient ischemic attack) Surgical History H/O cardiac catheterization H/O endoscopic retrograde cholangiopancreatography History of back surgery 05/10/2020 Grade 2 view with Mac 3 blade History of colonoscopy History of repair of rotator cuff History of tonsillectomy Hx of cholecystectomy S/P aortic valve replacement S/P coronary artery stent placement S/P right knee surgery Status post cardiac pacemaker procedure for h/o complete heart block s/p his AVR Family History Sister Anxiety Brother Alcohol abuse Father Cardiac disorder Myocardial infarction Mother Depression Kidney disease Lung disease Stroke Other Family history non-contributory Denies family history of Ovarian cancer Prostate cancer Breast cancer Colorectal cancer Social History Smoking Status: Former smoker Tobacco Type: Cigarettes Age Quit Using Tobacco: 64; Cigarettes Per Day: Random cigarette usage; Second Hand Exposure: No; Hx Alcohol Use: Yes Alcohol type: hard liquor Hx Substance Use: No Preferred Language: Spanish Communication Ability: Effective Visual Impairment: No Limitations Hearing Ability: Use of Hearing Aid Telegraphic Instrument Supervisor Required: No Beliefs That Will Affect Care: None marital status: Current Living Situation: Spouse Current Living Situation Comment: House Feels Safe at Home: Yes Childhood Exposure to Second-Hand Smoke: Yes Seatbelt Use: always Sunscreen Use: Yes Assistive Devices: Glasses, Hearing Aid - Bilateral and Walker Review of Systems Review of Systems: Mild distress and fatigue no headache, blurry or double vision no speech or swallowing issues no chest pain, pressure or palpitations Patient denies short of breath but objectively he is dyspneic when I evaluated him no abdominal pain, nausea or vomiting, diarrhea or constipation no dysuria, hematuria or frequency no focal joint pain or swelling Patient has worsening back pain after his x-rays radiating to his right groin typical to his preoperative pain although much less than before no bruising, bleeding or rashes no focal signs of weakness or numbness or altered sensation no complaints of anxiety or depression.. Physical Exam Physical Exam: The patient appeared well nourished and normally developed. Vital signs as documented. Head exam is normocephalic atraumatic no scleral icterus Neck is without JVD, thyromegaly, or carotid bruits. Lungs are diminished and mildly labored throughout Cardiac exam, irregular but rate controlled Abdominal exam reveals normal bowel sounds, soft non tender, no masses Extremities are nonedematous and both pedal pulses are present Neurologic exam is alert and oriented, no focal loss of strength or sensation reproducible pain to his right leg removed Skin is without bruises or rashes Psychologically is without concerns for anxiety or depression. Results & Data Results & Data ([facility]) Vital Signs (Past 12 Hours) Vital Signs Temp Pulse Pulse Resp BP BP Pulse Ox 07/30/20 12:57 71 22 108/71 96 07/30/20 12:20 98 07/30/20 11:53 79 16 108/59 L 97 07/30/20 11:34 98.4 F 78 18 86/51 L 96
--- NOTE | 2020-07-30 13:54 | XRay Report ---
XR chest 1V portable CLINICAL HISTORY: weakness COMPARISON STUDY: 05/07/2020 FINDINGS: The heart is mildly enlarged. There are postsurgical changes of midline sternotomy. There i s no failure. There is a left subclavian dual-chamber central venous pacemaker. There are linear righ t basilar opacities likely atelectatic although an infectious/inflammatory processes could appear sim ilar. There is calcified left lower lung zone granuloma.[ IMPRESSION: 1. Mild cardiomegaly 2. Right basilar opacities. Atelectasis favored over a pneumonia. ACT 112: Negative or not required by law. Electronically signed by: Jayy Mckeon M.D. 07/30/2020 1:52 PM
--- NOTE | 2020-07-30 14:01 | XRay Report ---
XR lumbar spine min 4V routine HISTORY: 75 years-old Male fall, recent back surgery acute low back pain status post fall COMPARISON: CT lumbar spine 07/21/2020 TECHNIQUE: 5 views of the lumbar spine FINDINGS: 5 nonrib-bearing lumbar type vertebral segments. Severe disc space narrowing and spondylitic spurring redemonstrated at L3-L4 and L4-L5. Interval posterior decompression with posterior interbody annette and screw fusion at L2-L4. Discectomy changes at L2-L3. Alignment is satisfactory. The hardware appears intact. Mild compression of the T12 vertebral body is chronic. No acute fracture or subluxation. Chol ecystectomy. Calcified plaque of the abdominal aorta. IMPRESSION: 1. No acute fracture or subluxation. 2. Interval laminectomy with posterior interbody annette and screw fusion at L2-L4 with discectomy change s at L2-L3. No evidence of hardware complication. ACT 112: Negative or not required by law. The above report was generated using voice recognition software. It may contain grammatical, syntax o r spelling errors. Electronically signed by: Eliazar Wheeler M.D. 07/30/2020 2:00 PM
--- NOTE | 2020-07-30 14:11 | Billing Data ---
Date of Service July 30, 2020 Coding Level of Care Code 14353 Initial Inpt Care Lvl 3
--- NOTE | 2020-07-30 14:18 | Cardiology Consultation ---
Date of Consultation July 30, 2020 Assessment & Plan (1) Cardiomyopathy: I met with this patient on 07/10/2020 when he presented acutely complaining of worsening SOB / CARTER. At that time he admitted to chronic CARTER related to his COPD and this may have been worse following his SARS-CoV 2 infection in March 2020. However, patient noted that following his back surgery on 05/10/2020 -- his CARTER seemed to be even worse. Patient stated that if he goes down to the basement and walks back up stairs it absolutely plays him out, and it would take up to 5 minutes to catch his breath. Patient denied any cough, wheezing, or any sputum production. No fevers or chills. He did not have any angina pectoris. Patient denied any exertional angina, chest pain, heaviness, tightness, pressure, or discomfort. He denied any exertional neck, jaw, back, or arm pain. He denied any orthopnea or PND. He denied any palpitations, syncope, or near syncope. Patient underwent an ECHOCARDIOGRAM 07/16/2020: -- Mildly dilated LV with moderately reduced LV systolic, LVEF 35% to 40% with wall motion abnormalities. -- Appropriately function bioprosthetic AVR. -- Septal wall motion consistent with RV pacing. -- Mild LA dilation. -- Mild MR. -- Compared to Echo 2018, LV systolic function is now moderately reduced. Possible reasons for reduced LV systolic function include Ischemic Heart Disease, CAD, Ventricular Dyssynchrony secondary to pacing from his RV 100% of the time (pacemaker induced LBBB). We contacted the patient with his Echo results and to make recommendations for medications and for further evaluation -- Unfortunately patient was already hospitalized for intractable back pain and preparing for further surgical intervention. Patient had L-spine surgery on 07/25/2020 and tolerated that surgery. Patient was evaluated by Dr. Saba during 07/22 to 07/29 hospitalization -- patient had an episode of chest discomfort, so another Echocardiogram performed 07/26/2020 that showed worsening LV systolic function, LVEF 25% to 30% with global hypokinesis. Cardiac Catheterization was recommended. Patient refused cardiac catheterization because he felt like he had been in the hospital for too long. He was discharged to home yesterday and ended up falling twice -- which prompted this ER visit. His LV systolic dysfunction has progressed (Echocardiogram 07/16/2020 LVEF 35% to 40%, Echo 07/26/2020 LVEF 25% to 30%) -- we need to establish the etiology for this progression. This could be due to acute illness, ischemic heart disease, RV pacing, or other etiologies. Recommend the followin. Cardiac Catheterization to evaluate CAD burden. 2. Continue Lopressor 12.5 mg b.i.d. as blood pressure allows. 3. Currently appears euvolemic. No diuretic is recommended at this time. 4. Monitor daily body weights, I&Os. 5. 2 gram low-sodium diet. 6. Consider adding an ACEI, ARB, or Entresto if blood pressure allows. 7. If no severe coronary lesions, we may need to consider upgrading his pacemaker to a biventricular device. (2) CAD, multiple vessel: -- No anginal complaints. -- As outlined above and here. -- Continue Aspirin 81 mg daily. -- Continue Atorvastatin 40 mg daily. (3) Weakness: -- Secondary to recent lumbar spinal surgery, anemia, transient hypotension and likely some deconditioning. -- Transfuse PRBC's. -- PT/OT will also likely benefit this patient. (4) Anemia: -- Transfuse PRBC's. (5) Third degree AV block: -- Pacemaker dependent. -- Device last interrogated on . -- Depending on clinical course, may need to upgrade to a biventricular device. (6) Pacemaker: -- Pacemaker dependent. -- Device last interrogated on . -- Depending on clinical course, may need to upgrade to a biventricular device. Supervising Physician Co-Signing Physician Notes Patient was reviewed with Artur Bear, I agree with his assessment. We need to exclude ischemia as a cause of his falling left ventricular function. Pacing is another likely contributor or cause. History of Present Illness Reason for Consultation: -- Worsening LV Systolic Function. -- CAD. -- Pacemaker induced LBBB. Requesting Physician: Lam Carter MD Attending Physician: Judd Hood MD History of Present Illness Mr. Wright is a 75-year-old male with a history of Multivessel CAD s/p Multiple PCI's, Bicuspid Aortic Valve s/p Bioprosthetic AVR 2011, Ascending Aortic Aneurysm, Complete Heart Block s/p Medtronic Dual Chamber Pacemaker 2011, COPD, Dyslipidemia, Hypertension, Prior Pulmonary Emboli following AVR surgery 2011, Carotid Artery Disease, COVID 27 March 2020, and Lumbar Degenerative Disc Disease with Radiculopathy s/p Repeat Lumbar Surgery 07/25/2020 who presented to [facility] ER early this morning after sustaining two falls and fearing that he may have "messed up" his recent back surgery. I met with this patient on 07/10/2020 when he presented acutely complaining of worsening SOB / CARTER. At that time he admitted to chronic CARTER related to his COPD and this may have been worse following his SARS-CoV 2 infection in March 2020. However, patient noted that following his back surgery on 05/10/2020 -- his CARTER seemed to be even worse. Patient stated that if he goes down to the basement and walks back up stairs it absolutely plays him out, and it would take up to 5 minutes to catch his breath. Patient denied any cough, wheezing, or any sputum production. No fevers or chills. He did not have any angina pectoris. Patient denied any exertional angina, chest pain, heaviness, tightness, pressure, or discomfort. He denied any exertional neck, jaw, back, or arm pain. He denied any orthopnea or PND. He denied any palpitations, syncope, or near syncope. Patient underwent an ECHOCARDIOGRAM 07/16/2020: -- Mildly dilated LV with moderately reduced LV systolic, LVEF 35% to 40% with wall motion abnormalities. -- Appropriately function bioprosthetic AVR. -- Septal wall motion consistent with RV pacing. -- Mild LA dilation. -- Mild MR. -- Compared to Echo 2018, LV systolic function is now moderately reduced. Possible reasons for reduced LV systolic function include Ischemic Heart Disease, CAD, Ventricular Dyssynchrony secondary to pacing from his RV 100% of the time (pacemaker induced LBBB). We contacted the patient with his Echo results and to make recommendations for medications and for further evaluation -- Unfortunately patient was already hospitalized for intractable back pain and preparing for further surgical intervention. Patient had L-spine surgery on 07/25/2020 and tolerated that surgery. Patient was evaluated by Dr. Saba during 07/22 to 07/29 hospitalization -- patient had an episode of chest discomfort, so another Echocardiogram performed 07/26/2020 that showed worsening LV systolic function, LVEF 25% to 30% with global hypokinesis. Cardiac Catheterization was recommended. Patient refused cardiac catheterization because he felt like he had been in the hospital for too long. He was discharged to home yesterday and ended up falling twice -- which prompted this ER visit. Thus far his work-up shows an anemia with a Hgb of 8.7 g/dL, mildly elevated troponin I at 0.055 ng/mL. EKG shows a ventricular paced rhythm. Patient also was briefly hypotensive with a SBP 86 mmHg. His BP has improved since then, and he will be transfused. Patient offers no complaints at the current time. He still experiences exertional dyspnea, but he does not feel short of breath rest. He denies any orthopnea or PND. His body weight has been stable. No fluid retention or w eight gain. Patient denies any chest pain, heaviness, tightness, pressure, or discomfort. He denies any angina pectoris. He denies any palpitations, syncope, or near syncope. Patient is compliant with his medications and has not had any adverse side effects. He has had the following Cardiovascular Studies/Procedures: 1. Cardiac Catheterization 1998 following [place]. 2. Multiple PCI involving mid LAD, mid circumflex, OM1, RCA. These were done at different times at different facilities from [id number]. 3. Bioprosthetic AVR 12/14/2011: -- Minimally invasive aortic valve replacement with 23 mm Joni-Riley pericardial valve. -- Complicated by acute postop blood loss anemia from post pump coagulopathy, and therefore chest was not closed until 12/15/2011. -- Complete heart block ensued following surgery. 4. Pacemaker placement 12/18/2011 at [facility]: Dual-chamber Medtronic. 5. Cardiac Catheterization 11/13/2011: Mid LAD stent 20% in stent restenoses. Proximal OM1 stent with less than 10% in stent restenoses. Mid OM1 40%. Distal OM1 superior branch ostial 70%. Dominant RCA. Proximal RCA stent 20%. Mid RCA 20%. Distal RCA 20%. PCWP 7. PA pressure 25/8. Cardiac index via thermodil ution 2.4 liters/min/m2. 6. Echocardiogram 08/20/2016: Normal LV size and systolic function. EF 60%-65%. Hypokinesis of the mid inferior wall. Dyskinesis distal inferior wall. Mild LVH. Mild left atrial dilation. Mild MR. Appropriately functioning bioprosthetic aortic valve. 7. CT chest 09/02/2016: Ascending thoracic aortic aneurysm 4.3 cm. No dissection. Bilateral lower lobe bronchial wall thickening mucous plugging. Multiple right lower lobe pulmonary nodules and 22 mm pleural based opacity 8. Nuclear Stress 09/02/2016: No significant ischemic changes. Prior RCA territory and apical infarcts with possibility of circumflex territory as well. Inferior, inferoseptal, inferolateral, and apical fixed defect. EF 56%. Akinesis of the apex. Hypokinesis of the inferior septum and inferior wall. No chest pain. 9. Carotid Duplex 10/30/2016: Moderate atherosclerotic plaque bilaterally. 10. CTA Aorta 10/04/2017: Stable ascending thoracic aortic aneurysm, distal to sinotubular junction measuring 4.3 x 4.3 cm. No dissection. Mild emphysema. Granulomatous disease. 11. Echocardiogram 08/16/2018: Mildly dilated LV with low-normal systolic function. EF 50%-55%. Septal motion consistent with pacemaker. Mid to distal inferior wall appears hypokinetic to akinetic. Moderate LVH. Mild MR. Appropriately functioning bioprosthetic aortic valve. Normal RVSP. 12. CT Chest 11/29/2018: Noncontrast. Ascending aorta 4.5 cm at the level of main pulmonary artery. Mild emphysema. Allergies Allergy/AdvReac Type Severity Reaction Status Date / Time bee venom protein (honey bee) Allergy Severe SWELLING Verified 07/30/20 14:37 Sulfa (Sulfonamide Allergy Intermediate "SULFA": Verified 07/30/20 14:37 Antibiotics) RASH Penicillins Allergy Unknown UNKNOWN Verified 07/30/20 14:37 codeine AdvReac Intermediate HALLUCINATI Verified 07/30/20 14:37 NG Home Medications Medication Instructions Recorded Confirmed Type epinephrine [EpiPen] 0.3 mg IM Q3H PRN 10/21/18 07/30/20 History finasteride 5 mg PO QAM 10/21/18 07/30/20 History metoprolol tartrate 12.5 mg PO BID 10/21/18 07/30/20 History atorvastatin [Lipitor] 40 mg PO HS 10/22/18 07/30/20 History donepezil 10 mg PO QAM 10/22/18 07/30/20 History duloxetine 60 mg PO QAM 10/22/18 07/30/20 History gabapentin 300 mg PO QID 10/22/18 07/30/20 History hydrocortisone 1 applic TOPICAL HS PRN 10/22/18 07/30/20 History lamotrigine 200 mg PO HS 10/22/18 07/30/20 History memantine 5 mg PO BID 10/22/18 07/30/20 History aspirin 81 mg tablet,delayed 40.5 mg PO QAM tab 04/03/19 07/30/20 History release insulin glargine 100 unit/mL (3 30 units SUBCUT BID ml 07/25/19 07/30/20 History mL) subcutaneous pen acetaminophen [Tylenol Extra 1,000 mg PO TID PRN 03/18/20 07/30/20 History Strength] albuterol sulfate [ProAir HFA] 2 puffs INH Q4H PRN 03/18/20 07/30/20 History tramadol [Ultram] 50 mg PO Q4H PRN #20 tab 05/12/20 07/30/20 Rx budesonide-formoterol HFA 160 2 puff INHALATION BID 05/21/20 07/30/20 History mcg-4.5 mcg/actuation aerosol inhaler glimepiride 4 mg tablet 4 mg PO BID #180 tab 06/21/20 07/30/20 Rx Onglyza 5 mg PO QAM 07/21/20 07/30/20 History Spiriva with HandiHaler 1 cap INHALATION QAM 07/21/20 07/30/20 History buspirone 30 mg PO TID 07/21/20 07/30/20 History paroxetine HCl 20 mg PO QAM 07/21/20 07/30/20 History docusate sodium [Colace] 100 mg PO BID #60 cap 07/22/20 07/30/20 Rx oxycodone 5 mg PO Q6H PRN #14 tab 07/22/20 07/30/20 Rx sennosides [Senokot] 8.6 mg PO HS #30 tab 07/22/20 07/30/20 Rx nitroglycerin [Nitrostat] 0.4 mg SUBLINGUAL DIRECTED PRN 07/29/20 07/30/20 Rx #30 tab clopidogrel 75 mg PO DAILY #30 tab 08/02/20 Rx Patient History Medical History Anemia Aneurysm of ascending aorta Asthma with COPD Bicuspid aortic valve replaced with bioprosthetic valve BPH (benign prostatic hyperplasia) CAD (coronary artery disease) Cardiomyopathy Carotid artery stenosis CKD (chronic kidney disease) COPD (chronic obstructive pulmonary disease) Dementia HTN (hypertension), benign Hyperlipidemia Lumbar radiculopathy Myelodysplastic syndrome Myocardial infarction Pacemaker Placed after AVR due to complete heart block Renal insufficiency TIA (transient ischemic attack) Surgical History H/O cardiac catheterization H/O endoscopic retrograde cholangiopancreatography History of back surgery 05/10/2020 Grade 2 view with Mac 3 blade History of colonoscopy History of repair of rotator cuff History of tonsillectomy Hx of cholecystectomy S/P aortic valve replacement S/P coronary artery stent placement S/P right knee surgery Status post cardiac pacemaker procedure for h/o complete heart block s/p his AVR Family History Sister Anxiety Brother Alcohol abuse Father Cardiac disorder Myocardial infarction Mother Depression Kidney disease Lung disease Stroke Other Family history non-contributory Denies family history of Ovarian cancer Prostate cancer Breast cancer Colorectal cancer Social History Smoking Status: Former smoker Tobacco Type: Cigarettes Age Quit Using Tobacco: 64; Cigarettes Per Day: Random cigarette usage; Second Hand Exposure: No; Hx Alcohol Use: Yes Alcohol type: hard liquor Hx Substance Use: No Preferred Language: Bulgarian Communication Ability: Effective Visual Impairment: No Limitations Hearing Ability: Use of Hearing Aid Rustic Fence Builder Required: No Beliefs That Will Affect Care: None marital status: Current Living Situation: Spouse Current Living Situation Comment: House Feels Safe at Home: Yes Childhood Exposure to Second-Hand Smoke: Yes Seatbelt Use: always Sunscreen Use: Yes Assistive Devices: Glasses, Hearing Aid - Bilateral and Walker Physical Exam Physical Exam: GENERAL: Patient in no acute distress. Complexion is pale. HEENT: Head is atraumatic, normocephalic. EOM's intact. Facies symmetric. No perioral cyanosis. NECK: No JVD. JVP is at the level of the clavicle sitting upright. Carotid upstrokes are + 2 bilaterally. No obvious bruits are noted. CHEST/LUNGS: Slightly diminished breath sounds throughout, otherwise clear. No wheezes, rales, or crackles. CVS: S1 and S2 are regular with a grade 2/6 systolic murmur heard best over the right 2nd intercostal space. No diastolic murmurs. No gallops or rubs. PMI is nondisplaced. No lifts, heaves, or thrills. No abdominal aortic or renal bruits. There is a palpable pacemaker in left subclavian fossa ABDOMINAL EXAM: Bowel sounds are present. No masses, organomegaly, or tenderness. EXTREMITIES: No clubbing or cyanosis. No edema. Intact radial pulses bilaterally. NEUROLOGIC EXAM: Patient is awake, alert, and oriented. Pleasant and cooperative. Answers questions appropriately. Speech is clear. Interrogation of his Medtronic Sensia DR Dual Chamber Pacemaker 07/10/2020 showed: -- Estimated battery life 26 months. -- Battery voltage 2.75 V. -- Threshold testing performed. -- Appropriate sensing and pacing characteristics. -- Pacing from the RA 1% of the time. -- Pacing from the RV 100% of the time. -- PAC's and atrial tachycardia -- longest lasted 1 minute. LIMITED 2D ECHOCARDIOGRAM 07/26/2020: -- Mildly dilated LV with moderately to severely reduced LV systolic function. -- LVEF 25% to 30% with global hypokinesis. -- No LVH. Results & Data ([facility]) Vital Signs (Past 12 Hours) Vital Signs Temp Pulse Pulse Resp BP BP Pulse Ox 07/30/20 12:57 71 22 108/71 96 07/30/20 12:20 98 07/30/20 11:53 79 16 108/59 L 97 07/30/20 11:34 36.9 C 78 18 86/51 L 96 Laboratory Results Laboratory Results - last 24 hr 07/30/20 07/30/20 07/30/20 12:20 12:20 12:20 WBC 19.30 H RBC 2.77 L Hgb 8.7 L Hct 26.8 L MCV 96.8 MCH 31.4 MCHC 32.5 RDW Std Deviation 70.2 H RDW Coeff of Linda 19.9 H Plt Count 367 MPV 10.4 Immature Gran % (Auto) 0.5 Neut % (Auto) 83.2 Lymph % (Auto) 7.5 Armstrong % (Auto) 7.8 Eos % (Auto) 0.9 Baso % (Auto) 0.1 Neut # (Auto) 16.08 H Lymph # (Auto) 1.44 Armstrong # (Auto) 1.50 H Eos # (Auto) 0.17 Baso # (Auto) 0.02 Immature Gran # (Auto) 0.09 H Absolute Nucleated RBC 0.12 H Nucleated RBC % (auto) 0.6 PT 11.1 INR 1.1 Sodium 135 L Potassium 4.5 Chloride 102 Carbon Dioxide 27 Anion Gap 6.0 BUN 29 H Creatinine 1.43 H Est Cr Clr Drug Dosing 50.8 Est GFR ( Amer) 55.5 Est GFR (Non-Af Amer) 47.9 BUN/Creatinine Ratio 20.1 H Glucose 269 H Calcium 8.5 Total Bilirubin 1.4 H AST 19 ALT 19 Alkaline Phosphatase 116 Troponin I 0.055 H* Total Protein 6.9 Albumin 3.1 L Globulin 3.8 Albumin/Globulin Ratio 0.8 L SARS-CoV-2 Ag (Rapid) 07/30/20 12:20 WBC RBC Hgb Hct MCV MCH MCHC RDW Std Deviation RDW Coeff of Linda Plt Count MPV Immature Gran % (Auto) Neut % (Auto) Lymph % (Auto) Armstrong % (Auto) Eos % (Auto) Baso % (Auto) Neut # (Auto) Lymph # (Auto) Armstrong # (Auto) Eos # (Auto) Baso # (Auto) Immature Gran # (Auto) Absolute Nucleated RBC Nucleated RBC % (auto) PT INR Sodium Potassium Chloride Carbon Dioxide Anion Gap BUN Creatinine Est Cr Clr Drug Dosing Est GFR ( Amer) Est GFR (Non-Af Amer) BUN/Creatinine Ratio Glucose Calcium Total Bilirubin AST ALT Alkaline Phosphatase Troponin I Total Protein Albumin Globulin Albumin/Globulin Ratio SARS-CoV-2 Ag (Rapid) Negative Medications Administered PG Care Time/CCT Total # of Minutes Spent Total Time Spent with Patient: Total time spent is greater than 50% in coordination of care (as documented) at patient's floor/unit and/or counseling patient:45 Coding Level of Care Code 73597 Inpt Consult Level 4 Diagnoses Cardiomyopathy I42.9 CAD, multiple vessel I25.10 Weakness R53.1 Anemia D64.9 Third degree AV block I44.2 Pacemaker Z95.0
--- NOTE | 2020-07-30 16:36 | Electrocardiogram Report ---
Test Reason : Blood Pressure : / mmHG Vent. Rate : 074 BPM Atrial Rate : 074 BPM P-R Int : 174 ms QRS Dur : 194 ms QT Int : 494 ms P-R-T Axes : 040 -58 123 degrees QTc Int : 548 ms Atrial-sensed ventricular-paced rhythm Abnormal ECG When compared with ECG of 26-JUL-2020 08:32, Vent. rate has decreased BY 26 BPM Confirmed by Judd Hood ([id number]) on 07/30/2020 4:36:39 PM Referred By: REFERRED SELF Confirmed By:Judd Hood
[2020-07-30] MEDS ORDERED: GLUCAGON FOR INJ 1 MG VIAL SQ PRN (17:39)
[2020-07-30] MEDS ORDERED: DEXTROSE 50% 50 ML SYRINGE IV PRN (17:39)
[2020-07-30] MEDS ORDERED: GLUCOSE 10 TABS/TUBE PO PRN (17:39)
[2020-07-30] MEDS ORDERED: NITROGLYCERIN SL 0.4 MG/TAB TAB SL PRN (17:39)
[2020-07-30] MEDS ORDERED: GLUCOSE 40% GEL 15 GM TUBE PO PRN (17:39)
[2020-07-30] MEDS ORDERED: SODIUM CHLORIDE 0.9% 250 ML IV PRN (17:39)
[2020-07-30] MEDS ORDERED: ACETAMINOPHEN 500 MG TAB PO PRN (17:39)
[2020-07-30] MEDS ORDERED: CARBOHYDRATES FOR HYPOGLYCEMIA PO PRN (17:39)
[2020-07-30] MEDS ORDERED: ALBUTEROL HFA 8 GM INHALER INH PRN (17:55)
[2020-07-30] MEDS ORDERED: PHARMACY GLYCEMIC MGMT CONSULT PRN (18:12)
[2020-07-30] MEDS: DOCUSATE SODIUM 100 MG CAP PO SCH (20:21)
[2020-07-30] MEDS: HEPARIN SOD 5,000 UNIT/0.5 ML VIAL SQ SCH (20:21)
[2020-07-30] MEDS: MEMANTINE HCL 5 MG TAB PO SCH (20:22)
[2020-07-30] MEDS: METOPROLOL TARTRATE 25 MG TAB PO SCH (20:22)
[2020-07-30] MEDS: ATORVASTATIN 40 MG TAB PO SCH (20:22)
[2020-07-30] MEDS: SENNA 8.6 MG TAB PO SCH (20:23)
[2020-07-30] MEDS: oxyCODONE HCL IR 5 MG TAB (IMMEDIATE RELEASE) PO PRN (20:34)
[2020-07-30] MEDS: INSULIN ASPART 100 UNITS/ML 3 ML PEN SC SCH (20:36)
[2020-07-30] MEDS ORDERED: INSULIN GLARGINE SOLOSTAR 100 UNITS/ML 3 ML PEN SQ SCH (21:00)
[2020-07-30] MEDS: busPIRone 15 MG TAB PO SCH (21:00)
[2020-07-31 00:33] LABS: Appearance Urine Clear (Clear); Bilirubin Urine Negative (Negative); Blood Urine Negative (Negative); Color Urine Yellow; Glucose Urine UA Negative (Negative); Ketones Urine Negative (Negative); Leukocyte Esterase Urine Negative (Negative); Nitrite Urine Negative (Negative); Protein Urine Negative (Negative); Specific Gravity Urine 1.023 (1.000-1.030); Urobilinogen Urine Negative (Negative)
[2020-07-31 01:50] LABS: C Reactive Protein 3.48 mg/dl (0-0.29); Troponin I 0.055 ng/ml (0-0.045)
[2020-07-31] MEDS: oxyCODONE HCL IR 5 MG TAB (IMMEDIATE RELEASE) PO PRN ×2 (03:56→19:41)
[2020-07-31] MEDS: INSULIN ASPART 100 UNITS/ML 3 ML PEN SC SCH ×4 (07:52→20:27)
[2020-07-31 07:53] LABS: BUN Creatinine Ratio 21.4 (10-20); Calcium 8.6 mg/dl (8.5-10.1); Creatinine Clr Calc Pharmacy 71.2 ml/min; Est GFR (African American) 83.5; Est GFR (Non-African American) 72.1; Potassium 4.2 mmol/L (3.5-5.1)
[2020-07-31] MEDS ORDERED: HEPARIN (PORCINE) 1000 UNIT/ML 10 ML (CATH LAB USE ONLY) ONE (07:59)
[2020-07-31] MEDS ORDERED: niCARdipine HCL INJ 2.5 MG/ML 10 ML AMP ONE (07:59)
[2020-07-31] MEDS ORDERED: fentaNYL citrate 100 MCG/2 ML VIAL ONE ×2 (08:00→08:27)
[2020-07-31] MEDS ORDERED: MIDAZOLAM HCL 1 MG/ML 2ML VIAL ONE ×3 (08:00→08:27)
--- NOTE | 2020-07-31 08:01 | Pre Anesthesia Assessment ---
Date of Service July 31, 2020 Pre Sedation Assessment Vital Signs Temp Pulse Pulse Pulse Resp BP BP 07/31/20 07:52 71 16 123/59 L 07/31/20 07:08 98.8 F 80 20 122/70 07/31/20 02:52 97.9 F 70 18 123/71 07/31/20 00:45 98.4 F 86 87 18 115/74 115/74 07/31/20 00:26 98.4 F 81 18 119/67 07/30/20 23:51 98.1 F 84 20 116/78 07/30/20 23:21 98.4 F 88 16 115/70 07/30/20 23:06 97.9 F 84 18 122/78 07/30/20 22:51 98.4 F 86 17 113/70 07/30/20 19:23 97.9 F 88 17 117/69 07/30/20 17:45 97.3 F L 76 17 105/66 07/30/20 17:20 80 12 123/92 07/30/20 15:37 76 20 124/70 07/30/20 14:40 76 16 116/60 07/30/20 12:57 71 22 108/71 07/30/20 12:20 07/30/20 11:53 79 16 108/59 L 07/30/20 11:34 98.4 F 78 18 86/51 L Pulse Ox 07/31/20 07:52 96 07/31/20 07:08 93 07/31/20 02:52 92 07/31/20 00:45 96 07/31/20 00:26 97 07/30/20 23:51 96 07/30/20 23:21 97 07/30/20 23:06 96 07/30/20 22:51 95 07/30/20 19:23 98 07/30/20 17:45 97 07/30/20 17:20 96 07/30/20 15:37 95 07/30/20 14:40 97 07/30/20 12:57 96 07/30/20 12:20 98 07/30/20 11:53 97 07/30/20 11:34 96 Cardiovascular RRR, no murmur, no edema Respiratory normal respiratory effort, lungs clear to auscultation Pre-Sedation Airway Assessment Smoking Status: Former smoker Hx Sleep Apnea: No Short, Thick Neck: No Thyromental Distance: > or= 3.5 Finger Breadths Oral Cavity: + WNL Mallampati Class: I ASA: ASA3 NPO Status Date of Last Intake of Fluids: 07/30/20 Time of Last Intake of Fluids: 20:00 Date of Last Intake of Solid Food: 07/30/20 Time of Last Intake of Solid Foods: 20:00 Procedure Planning Contraindications for Sedation: none Current Medications Reviewed: Yes Notes The planned sedation has been discussed with the patient. Informed Consent was obtained. I have identified the patient, determined the appropriateness of sedation and have assessed the patient immediately prior to the procedure. All medicine(s) and interventions are by my order.
--- NOTE | 2020-07-31 08:01 | Cardiology Progress Note ---
Date of Service July 31, 2020 Assessment & Plan (1) Cardiomyopathy: 2. Weakness, falls x2, question syncope 3. History of coronary artery disease post multiple prior stents 4. Anemia 5. Post recent lumbar surgery 6. Post bioprosthetic AVR 7. History of complete heart block post permanent pacemaker Plan to proceed with cardiac catheterization via right radial artery today. Further recommendations pending findings Admission and Anticipated Discharge Date Admission Date: July 30, 2020 Subjective Feeling well this morning. No chest pain. No additional presyncopal symptoms Review of Systems Review of Systems: All systems reviewed & are unremarkable except as noted in HPI & below Physical Exam Physical Exam: General: Comfortable, no acute distress HEENT: Sclerae anicteric, mucous membranes moist Lungs: Clear anteriorly Cardiac: Regular rate and rhythm, 2/6 systolic ejection murmur Abdomen: Soft, nontender Extremities: Warm, well perfused, no edema. 2+ radial pulses Skin: No rashes or lesions. Neuro: Nonfocal Psych: Alert orient x3, normal affect and mood Results & Data ([facility]) Vital Signs (Past 12 Hours) Vital Signs Temp Pulse Pulse Resp BP BP Pulse Ox 07/31/20 07:08 98.8 F 80 20 122/70 93 07/31/20 02:52 97.9 F 70 18 123/71 92 07/31/20 00:45 98.4 F 86 87 18 115/74 115/74 96 07/31/20 00:26 98.4 F 81 18 119/67 97 07/30/20 23:51 98.1 F 84 20 116/78 96 07/30/20 23:21 98.4 F 88 16 115/70 97 07/30/20 23:06 97.9 F 84 18 122/78 96 07/30/20 22:51 98.4 F 86 17 113/70 95 PG Care Time/CCT Total # of Minutes Spent Total Time Spent with Patient: Total time spent is greater than 50% in coordination of care (as documented) at patient's floor/unit and/or counseling patient: Coding Level of Care Code 06064 Subseq Hosp Care Lvl 3 Diagnoses Cardiomyopathy I42.9
[2020-07-31] MEDS ORDERED: NITROGLYCERIN/D5W 100MCG/ML 20ML SYR ONE (08:02)
[2020-07-31] MEDS ORDERED: ASPIRIN 81 MG ECTAB PO SCH (09:00)
--- NOTE | 2020-07-31 09:00 | Post Anesthesia Assessment ---
Date of Service July 31, 2020 Post Sedation Assessment Vital Signs Temp Pulse Pulse Pulse Resp BP BP 07/31/20 07:52 71 16 123/59 L 07/31/20 07:08 98.8 F 80 20 122/70 07/31/20 02:52 97.9 F 70 18 123/71 07/31/20 00:45 98.4 F 86 87 18 115/74 115/74 07/31/20 00:26 98.4 F 81 18 119/67 07/30/20 23:51 98.1 F 84 20 116/78 07/30/20 23:21 98.4 F 88 16 115/70 07/30/20 23:06 97.9 F 84 18 122/78 07/30/20 22:51 98.4 F 86 17 113/70 07/30/20 19:23 97.9 F 88 17 117/69 07/30/20 17:45 97.3 F L 76 17 105/66 07/30/20 17:20 80 12 123/92 07/30/20 15:37 76 20 124/70 07/30/20 14:40 76 16 116/60 07/30/20 12:57 71 22 108/71 07/30/20 12:20 07/30/20 11:53 79 16 108/59 L 07/30/20 11:34 98.4 F 78 18 86/51 L Pulse Ox 07/31/20 07:52 96 07/31/20 07:08 93 07/31/20 02:52 92 07/31/20 00:45 96 07/31/20 00:26 97 07/30/20 23:51 96 07/30/20 23:21 97 07/30/20 23:06 96 07/30/20 22:51 95 07/30/20 19:23 98 07/30/20 17:45 97 07/30/20 17:20 96 07/30/20 15:37 95 07/30/20 14:40 97 07/30/20 12:57 96 07/30/20 12:20 98 07/30/20 11:53 97 07/30/20 11:34 96 Recovery Score Activity: Moves 4 extremities Respiration: Deep Breath/Cough Circulation: +/-20% PreAnes Value Consciousness: Fully Awake Oxygen Saturation: O2 needed for >90% Discharge Sedation Level of Care: Fast Track Phase II Post Sedation Plan On clinical assessment, the patient appears to have tolerated the sedation without complications. Patient is recovering as anticipated. Patient will continue to be monitored by nursing and may be discharged when sedation discharge criteria are met per below protocol. Upon Completions of procedure up to 15 minutes continue every 5 minute vital signs and the P.A.R. score; then discharge to a Phase I or Fast Track to Phase II per the following guidelines: * Discharge Patient to appropriate Phase II area if PAR is 8 or greater or return to pre- procedure baseline. The post - procedure orders will be as directed. * If PAR score is less than 8 or not return to pre-procedure baseline then patient will follow Phase I monitoring till PAR is reached for Phase II. The Phase I may be done in procedure room or may call to secure a Phase I area. * If naloxone or flumazenil are used for reversal, hold in Phase I for continued monitoring from when last reversal dose was given for a minimum of 60 minutes or longer pending the nurse and/or physician discretion of patient condition before discharge to Phase II. Please call the Sedation Physician to re-evaluate and complete post-note for discharge to Phase II area. Do NOT discharge from procedure sedation or Phase 1 until post- sedation evaluation note is complete by procedure /sedation MD Sedation Discharge Instructions to be given to the patient at discharge to home.
--- NOTE | 2020-07-31 09:05 | Cardiac Catheterization ---
[facility] Data: Three Dimensional Map Modeler Cardiac Status Clinical evaluation leading to the procedure CAD Presenation: Non STEMI Anginal Classification: No Symptoms Heart Failure: NYHA Class: CCS III Cardiogenic Shock within 24 Hours: No Cardiac Arrest within 24 Hours: No Imaging Studies Past 6 Months: Yes Stress Studies Past 6 Months: No Diagnostic Physicians Name: Sanjiv Lim MD Status: Elective Closure Device Percutaneous Entry Location: Radial Closure Device: Radial Band Recommendations: PCI without planned CABG Intraprocedure Events Significant Disection: No Perforation: No Cardiac Cath Procedure Full Procedure Date July 31, 2020 Pre-Procedure Diagnosis Pre-Procedure Diagnosis: Non STEMI, CAD and Cardiomyopathy AUC Score AUC Score: 8 Post-Procedure Diagnosis Post-Procedure Diagnosis: Severe CAD Procedure(s) Performed Procedure(s) Performed: Coronary Angiography Assembler Bonding Sanjiv Lim MD Manager Net(s) [place] Estimated Blood Loss Estimated Blood Loss: 15 Medication(s) Medication(s): Fentanyl, Heparin, Lidocaine 1%, Nicardipine, Nitroglycerin and Versed Summary of Findings Indication: History of multivessel coronary disease post multivessel stenting. Recent new severe LV dysfunction. Post recent back surgery complicated by intermittent hypotension and postop anemia. Access: 6 Fr slender right radial artery Catheters: [place], AL-1 (unable to cannulate RCA with JR4, AR-1, 3 DRC). Findings: LM -Short, almost separate ostium, no significant disease LAD -medium caliber, 70 to 80% focal earlymid segment stenosis just after prior stent. Latemid and distal vessel without significant disease. Small D1, D2 without disease Circumflex - medium caliber, large high OM1 with patent proximal stent with mild in-stent restenosis, 90% mid stenosis just before bifurcation. 90% ostial stenosis of small superior branch of OM1. Small AV groove circumflex without significant disease. RCA -anterior takeoff, dominant, medium caliber, 20 to 30% proximal, 70% la temid in-stent restenosis, 95% focal distal stenosis just prior to previous stent with mild in-stent restenosis, PDA, PLB without significant disease. Arterial Closure: TR band Summary: 1. Severe multivessel coronary artery disease -70 to 80% earlymid LAD after prior stent High OM1 with patent proximal stent and 90% mid stenosis Latemid RCA 70% in-stent restenosis, 95% distal stenosis just proximal to prior stent Recommendations: Patient with multiple areas of focal disease which appear amenable to PCI. CABG with redo sternotomy could also be considered. Patient with recent lumbar surgery and postop anemia requiring transfusion now on only half a baby aspirin. As patient hemodynamically, electrically stable and without chest pain no intervention undertaken today. Further discussion regarding revascularization options following confirmation okay for additional antiplatelet therapy and no additional ongoing bleeding. Diagnostic procedure complicated by significant back pain and by radial artery spasm requiring use of 4Fr catheters. PCI would likely have to be done from femoral access. Hemodynamics Rest Ao:: 120/66/98 Final Ao: 133/62/91 LV: -- Recommendations Recommendations: PCI without planned CABG Radiation Exposure (mGy) 2600 Contrast (mls) 115 I attest to the content of the Intraoperative Record and any orders documented therein. Any exceptions are noted below. [facility] Card Cath Procedure Codes Cardiac Catheterization Procedure 1: Cardiovascular Cath Procedures: 45589 Coronaries and LHC (+/-LV) Moderate Sedation Procedure 1: Sedation/Anesthesia: 37076 Mod Sedation by the same physician;Init15 Min Child Age 5 & Up Procedure 2: Sedation/Anesthesia: 41844 Mod Sedation by the same physician; Ea [id number] Minutes PG Care Time/CCT Total # of Minutes Spent Total Time Spent with Patient: Total time spent is greater than 50% in coordination of care (as documented) at patient's floor/unit and/or counseling patient:
--- NOTE | 2020-07-31 09:51 | Hospitalist Progress Note ---
Date of Service July 31, 2020 Assessment & Plan Admission and Anticipated Discharge Date Admission Date: July 30, 2020 75 yo M w/ PMHx. of Multivessel CAD s/p Multiple PCI's Bicuspid Aortic Valve s/p Bioprosthetic AVR 2011, Ascending Aortic Aneurysm, Complete Heart Block s/p Medtronic Dual Chamber Pacemaker 2011, COPD, Dyslipidemia, Hypertension, Prior Pulmonary Emboli following AVR surgery 2011, Carotid Artery Disease, COVID 27 March 2020 presents with weakness and falling likely due to cardiomyopathy. Echocardiogram from 07/26/2020 shows moderately dilated left ventricle with severely reduced systolic function with an EF of 25 to 30% global hypokinesis. - Patient's troponin mildly elevated 0.05 stable/downtrended - catheterization on 07/31 w/ Dr. Lim w/ finding of three vessel disease amenable to stenting - discussed with Orthopedics Dr. Brown and he is okay with starting dual- antiplatelet therapy in the postoperative setting (revision decompression/fusion L2-3, L3-4) - Patient can be continued on aspirin at this time low-dose metoprolol - His EKG shows paced rhythm - Chest x-ray does not show overt heart failure at this time Anemia - Patient has acute blood loss anemia this could be impacting his hypotension the patient be transfused 1 unit of packed red blood cells given his profound cardiomyopathy diuretic therapy will be considered but will be based upon his blood pressure response to infusion of packed red blood cells COPD (chronic obstructive pulmonary disease): - Patient be continued on budesonide formoterol, pro-air as needed and Spiriva CKD (chronic kidney disease): - Typically is chronic kidney disease stage III Diabetes mellitus type 2, controlled: - Patient typically is on glimepiride plus alogliptin his glucoses are moderately elevated likely due to some perioperative steroid use. - holding home medication - continue sliding scale insulin DVT: Heparin Code: Full Diet: CC DM II Dispo:PCU/tele COVID: negative 07/30 Supervising Physician Co-Signing Physician Notes I personally examined the patient and verified all dye points of history and exam, discussed case, and agree with decision making with Dr Ervin feeling ok - for repeat [facility] tomorrow dw cardiology - input appreciated vitals noted nad heent nc at mmm breathing unlabored no accessory muscles good effort skin no rashes no pallor or icterus CAD - for stenting tomorrow. ortho OK w antiplatelets otherwise as above Subjective He was doing well. He had pain medication at noon and when I saw him at 2PM he was not in pain. He denies any chest pain. We discussed that he would likely need rehab prior to going home. Review of Systems Review of Systems: Constitutional: denies fevers, chills Cardiac: denies chest pain, palpitation, edema Pulm: denies cough, shortness of breath GI: denies abdominal pain MSK: admits lower back pain : denies dysuria Physical Exam Constitutional: WD/WN, vitals as above Eyes: PERRL, conjunctivae normal, anicteric sclerae ENMT: external ear and nose normal, oropharynx normal Neck: normal visual inspection Respiratory: normal respiratory effort, lungs clear to auscultation Cardiovascular: Rate/Rhythm: regular rate systolic murmur 2/6 Gastrointestinal (Abdomen): normal bowel sounds, soft, nontender, no hepatosplenomegaly Results & Data Results & Data ([facility]) Vital Signs (Past 12 Hours) Vital Signs Temp Pulse Pulse Pulse Resp BP BP 07/31/20 09:41 70 16 132/71 07/31/20 09:15 67 18 118/65 07/31/20 09:00 78 18 132/70 07/31/20 07:52 71 16 123/59 L 07/31/20 07:08 37.1 C 80 20 122/70 07/31/20 02:52 36.6 C 70 18 123/71 07/31/20 00:45 36.9 C 86 87 18 115/74 115/74 07/31/20 00:26 36.9 C 81 18 119/67 07/30/20 23:51 36.7 C 84 20 116/78 07/30/20 23:21 36.9 C 88 16 115/70 07/30/20 23:06 36.6 C 84 18 122/78 07/30/20 22:51 36.9 C 86 17 113/70 Pulse Ox 07/31/20 09:41 92 07/31/20 09:15 94 07/31/20 09:00 92 07/31/20 07:52 96 07/31/20 07:08 93 07/31/20 02:52 92 07/31/20 00:45 96 07/31/20 00:26 97 07/30/20 23:51 96 07/30/20 23:21 97 07/30/20 23:06 96 07/30/20 22:51 95 CBC Results Results Complete Blood Count Results: RBC 2.77 M/uL (4.7-6.1) L 07/30/20 WBC 19.30 K/uL (4.8-10.8) H 07/30/20 Hgb 8.7 g/dL (14.0-18.0) L 07/30/20 Hct 26.8 % (42-52) L 07/30/20 Plt Count 367 K/uL (130-400) 07/30/20 Chemistry (BMP) Results BMP Results: Sodium 138 mmol/L (136-145) 07/31/20 Potassium 4.2 mmol/L (3.5-5.1) 07/31/20 Chloride 105 mmol/L (98-107) 07/31/20 BUN 22 mg/dl (7-18) H 07/31/20 Creatinine 1.02 mg/dl (0.6-1.4) 07/31/20 Glucose 88 mg/dl (70-99) 07/31/20 Resident Activity Tracking Resident Involvement: Resident Care Provided Care Provided: Adult [facility] Medicine
[2020-07-31] MEDS ORDERED: SODIUM CHLORIDE 0.9% 1000ML 1,000 ML IV SCH (10:00)
[2020-07-31] MEDS: FLUTICASONE/VILANTEROL 100/25MCG 14 PUFFS/INHALER INH SCH (10:25)
[2020-07-31] MEDS: MEMANTINE HCL 5 MG TAB PO SCH ×2 (10:28→19:43)
[2020-07-31] MEDS: METOPROLOL TARTRATE 25 MG TAB PO SCH ×2 (10:28→19:43)
[2020-07-31] MEDS: DOCUSATE SODIUM 100 MG CAP PO SCH ×2 (10:28→19:46)
[2020-07-31] MEDS: FINASTERIDE 5 MG TAB PO SCH (10:28)
[2020-07-31] MEDS: DONEPEZIL HCL 10 MG TAB PO SCH (10:29)
[2020-07-31] MEDS: DULoxetine HCL 60 MG CAP PO SCH (10:29)
[2020-07-31] MEDS: PARoxetine HCL 20 MG TAB PO SCH (10:29)
[2020-07-31] MEDS: SENNA 8.6 MG TAB PO SCH (10:29)
[2020-07-31] MEDS: busPIRone 15 MG TAB PO SCH ×3 (10:29→19:42)
[2020-07-31] MEDS: UMECLIDINIUM BROMIDE 62.5MCG/BLISTER 7 PUFFS/INHALER INH SCH (10:29)
[2020-07-31] MEDS: HEPARIN SOD 5,000 UNIT/0.5 ML VIAL SQ SCH ×2 (10:30→19:45)
[2020-07-31] MEDS: traMADol HCL 50 MG TABLET PO PRN (12:06)
[2020-07-31] MEDS: ACETAMINOPHEN 325 MG TAB PO PRN (12:07)
[2020-07-31] MEDS ORDERED: INSULIN GLARGINE SOLOSTAR 100 UNITS/ML 3 ML PEN SQ SCH (12:15)
[2020-07-31] MEDS ORDERED: CLOPIDOGREL BISULFATE 300 MG TAB PO STA (12:50)
--- NOTE | 2020-07-31 14:29 | Pharmacy Report ---
Pharmacy Glycemic Short Note 2 - Date of Service July 31, 2020 - Glycemic Short BSG Results (Last 24 hours): 07/30/20 07/30/20 07/31/20 17:56 20:35 06:16 Glucose 88 POC Glucose 119 H 123 H 07/31/20 07/31/20 07/31/20 07:24 08:25 11:19 Glucose POC Glucose 116 H 135 H 157 H OUTPATIENT ANTIDIABETIC REGIMEN: * Lantus 30 bid, glimepiride ASSESSMENT: * Patient admitted with back pain, recently discharged from hospital. Type 2 diabetic managed on insulin at home * Pharmacy consulted for glycemic management. Had followed patient on last admission. Plan to utilize similar parameters for glucose control PLAN FOR INPATIENT GLYCEMIC CONTROL: * Hold outpatient oral diabetes medications * Basal insulin * Lantus 10 x 1, then 10-15 bid based upon bsg * Bolus insulin * NovoLog per scale ACHS or Q6hrs while NPO * Goal Range: Low 110 mg/dL - High 140 mg/dL * Correction Factor: 20 mg/dL/unit * Nutritional / Prandial insulin per carb ratio of 1 unit per 7 grams CHO consumed PLAN FOR DISCHARGE: * tbd
--- NOTE | 2020-07-31 17:26 | Billing Data ---
Date of Service July 31, 2020 Coding Level of Care Code 17280 Subseq Hosp Care Lvl 3
[2020-07-31] MEDS: ATORVASTATIN 40 MG TAB PO SCH (19:43)
[2020-07-31] MEDS: INSULIN GLARGINE SOLOSTAR 100 UNITS/ML 3 ML PEN SQ SCH (20:27)
[2020-08-01] MEDS: oxyCODONE HCL IR 5 MG TAB (IMMEDIATE RELEASE) PO PRN (05:50)
[2020-08-01] MEDS: UMECLIDINIUM BROMIDE 62.5MCG/BLISTER 7 PUFFS/INHALER INH SCH (08:17)
[2020-08-01] MEDS: FLUTICASONE/VILANTEROL 100/25MCG 14 PUFFS/INHALER INH SCH (08:17)
[2020-08-01] MEDS: INSULIN ASPART 100 UNITS/ML 3 ML PEN SC SCH ×4 (08:19→20:51)
[2020-08-01] MEDS: MEMANTINE HCL 5 MG TAB PO SCH ×2 (08:21→20:03)
[2020-08-01] MEDS: ASPIRIN 81 MG ECTAB PO SCH (08:21)
[2020-08-01] MEDS: busPIRone 15 MG TAB PO SCH ×3 (08:21→20:02)
[2020-08-01] MEDS: METOPROLOL TARTRATE 25 MG TAB PO SCH ×2 (08:22→20:06)
[2020-08-01] MEDS: DONEPEZIL HCL 10 MG TAB PO SCH (08:22)
[2020-08-01] MEDS: FINASTERIDE 5 MG TAB PO SCH (08:22)
[2020-08-01] MEDS: CLOPIDOGREL BISULFATE 75 MG TAB PO SCH (08:22)
[2020-08-01] MEDS: DOCUSATE SODIUM 100 MG CAP PO SCH ×2 (08:22→20:03)
[2020-08-01] MEDS: DULoxetine HCL 60 MG CAP PO SCH (08:22)
[2020-08-01] MEDS: INSULIN GLARGINE SOLOSTAR 100 UNITS/ML 3 ML PEN SQ SCH ×2 (08:23→20:49)
[2020-08-01] MEDS: HEPARIN SOD 5,000 UNIT/0.5 ML VIAL SQ SCH ×2 (08:24→20:04)
[2020-08-01] MEDS: PARoxetine HCL 20 MG TAB PO SCH (08:25)
[2020-08-01 08:54] LABS: Hematocrit (blood only) 32.5 % (42-52); Hemoglobin 10.5 g/dL (14.0-18.0); Mean Corpuscular Hgb Conc 32.3 g/dL (32-36); Mean Corpuscular Volume 92.9 fL (80-100); Nucleated RBC # (auto) 0.05 K/uL (0-0); Nucleated RBC % (auto) 0.3 %; Platelet Count 403 K/uL (130-400); RDW Coefficient of Variation 21.5 % (11.5-14.5); RDW Standard Deviation 73.4 fL (36.4-46.3)
[2020-08-01] MEDS: ACETAMINOPHEN 325 MG TAB PO PRN ×2 (09:00→17:39)
[2020-08-01] MEDS: traMADol HCL 50 MG TABLET PO PRN ×2 (09:01→17:39)
[2020-08-01 09:17] LABS: BUN Creatinine Ratio 18.1 (10-20); Calcium 9.2 mg/dl (8.5-10.1); Creatinine Clr Calc Pharmacy 63.9 ml/min; Est GFR (African American) 74.6; Est GFR (Non-African American) 64.4; Potassium 4.2 mmol/L (3.5-5.1)
[2020-08-01] MEDS ORDERED: fentaNYL citrate 100 MCG/2 ML VIAL ONE ×3 (09:56→11:12)
[2020-08-01] MEDS ORDERED: MIDAZOLAM HCL 1 MG/ML 2ML VIAL ONE ×5 (09:56→11:13)
[2020-08-01] MEDS ORDERED: HEPARIN (PORCINE) 1000 UNIT/ML 10 ML (CATH LAB USE ONLY) ONE ×2 (09:56→11:17)
[2020-08-01] MEDS ORDERED: niCARdipine HCL INJ 2.5 MG/ML 10 ML AMP ONE (09:56)
[2020-08-01] MEDS ORDERED: NITROGLYCERIN/D5W 100MCG/ML 20ML SYR ONE (09:57)
--- NOTE | 2020-08-01 10:04 | Cardiology Progress Note ---
Date of Service August 01, 2020 Assessment & Plan (1) Cardiomyopathy: 2. Weakness, falls x2, question syncope 3. History of coronary artery disease post multiple prior stents 4. Anemia 5. Post recent lumbar surgery 6. Post bioprosthetic AVR 7. History of complete heart block post permanent pacemaker Patient found to have severe three-vessel coronary artery disease yesterday. Disease amenable to stenting. Started on clopidogrel yesterday. Hemoglobin stable posttransfusion. Renal function stable. Plan to proceed with PCI to RCA and possible circumflex, LAD today. Admission and Anticipated Discharge Date Admission Date: July 30, 2020 Subjective No chest pain overnight. Continues to have issues with back pain. Telemetry unremarkable. Review of Systems Review of Systems: All systems reviewed & are unremarkable except as noted in HPI & below Physical Exam Physical Exam: General: Comfortable, no acute distress HEENT: Sclerae anicteric, mucous membranes moist Lungs: Clear anteriorly Cardiac: Regular rate and rhythm, 2/6 systolic ejection murmur Abdomen: Soft, nontender Extremities: Warm, well perfused, no edema. 2+ radial pulses Skin: No rashes or lesions. Neuro: Nonfocal Psych: Alert orient x3, normal affect and mood Results & Data ([facility]) Vital Signs (Past 12 Hours) Vital Signs Temp Pulse Resp BP BP Pulse Ox 08/01/20 08:03 98.2 F 71 71 H 134/62 18 L 08/01/20 02:31 98.1 F 74 17 136/73 96 07/31/20 23:15 97.9 F 76 17 136/71 97 PG Care Time/CCT Total # of Minutes Spent Total Time Spent with Patient: Total time spent is greater than 50% in coordination of care (as documented) at patient's floor/unit and/or counseling patient: Coding Level of Care Code 90759 Subseq Hosp Care Lvl 3 Diagnoses Cardiomyopathy I42.9
--- NOTE | 2020-08-01 10:05 | Pre Anesthesia Assessment ---
Date of Service August 01, 2020 Pre Sedation Assessment Vital Signs Temp Pulse Pulse Resp BP BP Pulse Ox 08/01/20 08:03 98.2 F 71 71 H 134/62 18 L 08/01/20 02:31 98.1 F 74 17 136/73 96 07/31/20 23:15 97.9 F 76 17 136/71 97 07/31/20 18:45 97.7 F 82 18 133/72 97 07/31/20 15:21 97.9 F 78 20 126/67 98 07/31/20 14:19 83 07/31/20 11:18 81 07/31/20 11:10 97.5 F L 78 18 147/75 H 98 07/31/20 11:03 77 16 147/75 H 97 07/31/20 10:33 74 16 150/73 H 98 07/31/20 10:18 70 16 148/78 H 96 07/31/20 10:11 74 16 157/99 H 97 Cardiovascular RRR, no murmur, no edema Respiratory normal respiratory effort, lungs clear to auscultation Pre-Sedation Airway Assessment Smoking Status: Former smoker Hx Sleep Apnea: No Hx Difficult Intubation: No Short, Thick Neck: No Thyromental Distance: > or= 3.5 Finger Breadths Oral Cavity: + WNL Mallampati Class: I ASA: ASA3 NPO Status Date of Last Intake of Fluids: 07/30/20 Time of Last Intake of Fluids: 20:00 Date of Last Intake of Solid Food: 07/30/20 Time of Last Intake of Solid Foods: 20:00 Procedure Planning Contraindications for Sedation: none Current Medications Reviewed: Yes Notes The planned sedation has been discussed with the patient. Informed Consent was obtained. I have identified the patient, determined the appropriateness of sedation and have assessed the patient immediately prior to the procedure. All medicine(s) and interventions are by my order.
[2020-08-01] MEDS: ONDANSETRON INJ 2 MG/ML 2 ML VIAL IV PRN ×2 (10:58→17:40)
--- NOTE | 2020-08-01 11:52 | Post Anesthesia Assessment ---
Date of Service August 01, 2020 Post Sedation Assessment Vital Signs Temp Pulse Pulse Resp BP BP Pulse Ox 08/01/20 08:03 98.2 F 71 71 H 134/62 18 L 08/01/20 02:31 98.1 F 74 17 136/73 96 07/31/20 23:15 97.9 F 76 17 136/71 97 07/31/20 18:45 97.7 F 82 18 133/72 97 07/31/20 15:21 97.9 F 78 20 126/67 98 07/31/20 14:19 83 Recovery Score Activity: Moves 4 extremities Respiration: Deep Breath/Cough Circulation: +/-20% PreAnes Value Consciousness: Fully Awake Oxygen Saturation: > 92% On Room Air Post Anesthesia Score: 10 Discharge Sedation Level of Care: Fast Track Phase II Post Sedation Plan On clinical assessment, the patient appears to have tolerated the sedation without complications. Patient is recovering as anticipated. Patient will continue to be monitored by nursing and may be discharged when sedation discharge criteria are met per below protocol. Upon Completions of procedure up to 15 minutes continue every 5 minute vital signs and the P.A.R. score; then discharge to a Phase I or Fast Track to Phase II per the following guidelines: * Discharge Patient to appropriate Phase II area if PAR is 8 or greater or return to pre- procedure baseline. The post - procedure orders will be as directed. * If PAR score is less than 8 or not return to pre-procedure baseline then patient will follow Phase I monitoring till PAR is reached for Phase II. The Phase I may be done in procedure room or may call to secure a Phase I area. * If naloxone or flumazenil are used for reversal, hold in Phase I for continued monitoring from when last reversal dose was given for a minimum of 60 minutes or longer pending the nurse and/or physician discretion of patient condition before discharge to Phase II. Please call the Sedation Physician to re-evaluate and complete post-note for discharge to Phase II area. Do NOT discharge from procedure sedation or Phase 1 until post- sedation evaluation note is complete by procedure /sedation MD Sedation Discharge Instructions to be given to the patient at discharge to home.
--- NOTE | 2020-08-01 12:14 | Cardiac Catheterization ---
ACC Data: [facility] Cardiac Status Clinical evaluation leading to the procedure CAD Presenation: Non STEMI Anginal Classification: CCS III Heart Failure: NYHA Class: CCS II Cardiogenic Shock within 24 Hours: No Cardiac Arrest within 24 Hours: No Imaging Studies Past 6 Months: Yes Stress Studies Past 6 Months: No Diagnostic Physicians Name: Sanjiv Lim MD Status: Elective Closure Device Percutaneous Entry Location: Femoral Closure Device: Angio-Seal Recommendations: PCI without planned CABG PCI Indication: PCI for high risk Non-KORY Lesion Segment Name: Distal RCA Culprit Artery: Yes Stenosis Prior to Rx (%): 95 Chronic Total Occlusion: No IVUS: No FFR: No Pre-Procedure IVELISSE Flow: 3 Previously Treated Lesion: No Lesion Complexity: Non-High/Non-C Lesion Length (mm): 12 Thrombus Present: No Bifurcation Lesion: No Guidewire Across Lesion: Stenosis Post-Procedure (%): 0 Post-Procedure IVELISSE Flow: 3 Devices(s) Deployed: Yes Yes Lesion #2 Segment Name: Mid LAD Culprit Artery: No Stenosis Prior to Rx (%): 70 Chronic Total Occlusion: No IVUS: No FFR: No Pre-Procedure IVELISSE Flow: 3 Previously Treated Lesion: Yes Timeframe: greater than 2 years Treated with Stent: Yes In-Stent Restenosis: Yes In-Stent Thrombosis: No Stent Type: DOMINIQUE Lesion Complexity: Non-High/Non-C Lesion Length (mm): 15 Thrombus Present: No Bifurcation Lesion: No Guidewire Across Lesion: Yes Stenosis Post-Procedure (%): 0 Post-Procedure IVELISSE Flow: 3 Devices(s) Deployed: Yes Intraprocedure Events Significant Disection: No Perforation: No Cardiac Cath Procedure Full Procedure Date August 01, 2020 Pre-Procedure Diagnosis Pre-Procedure Diagnosis: Non STEMI, CAD and Cardiomyopathy AUC Score AUC Score: 8 Post-Procedure Diagnosis Post-Procedure Diagnosis: Severe CAD and Successful PCI Procedure(s) Performed Procedure(s) Performed: Coronary Angiography, Drug Eluting Stent, Ultrasound Guided Vascular Access and Femoral Artery Angiography Dry Wall Applicator Sanjiv Lim MD Chauffeur Motorbus(s) Dana Estimated Blood Loss Estimated Blood Loss: 20 Medication(s) Medication(s): Clopidogrel, Fentanyl, Heparin, Lidocaine 1%, Nicardipine, Nitroglycerin and Versed Summary of Findings Indication: Cardiomyopathy, NSTEMI, multivessel coronary artery disease Access: 6 Fr right common femoral artery access under ultrasound guidance Catheters: AL-1 guide, guideliner Findings: For full details of patient's coronary angiography please see cath report from 07/31/2020. Briefly, patient found to have severe multivessel disease. After further discussion with family, primary team, orthopedics thought to be a better candidate for PCI versus bypass surgery and brought back today for multivessel PCI. -- PCI of RCA-- Antithrombotic therapy: Heparin, clopidogrel Procedure: Anterior takeoff RCA cannulated with AL-1 guide with additional support from guideliner Guidance Consultant 50 wire passed across lesion into distal PDA Distal RCA lesion predilated with 2.5 compliant balloon Mid RCA in-stent lesion predilated with 2.5 compliant balloon and 3.0 NC balloon Distal RCA lesion stented with 2.75 x 18 mm Zhang drug-eluting stent Stent post-dilated with 3.0 noncompliant balloon Mid RCA in-stent lesion restented with three 5 x 12 mm Zhang drug-eluting stent Stent postdilated with 3.75 NC IC vasodilators administered for spasm Post procedure IVELISSE 3 flow, stents well expanded with minimal residual stenosis and no apparent cardiac complications. PCI of LAD Left main cannulated with AL-1 guide with additional support from GuideLiner Guidance Consultant 50 wire placed into distal LAD In-stent mid LAD lesion dilated with 2.5 balloon Prior mid LAD stent covered with 3.5 x 18 mm Zhang drug-eluting stent Stent postdilated with 3.75 NC balloon Post procedure IVELISSE 3 flow, stent well expanded with minimal residual stenosis and no apparent cardiac complications. PCI of OM1 Guidance Consultant 50 wire removed from LAD and placed into distal OM Ostium of superior branch of OM dilated with 2.0 balloon Mid OM stenosis after prior stent dilated with 2.0 balloon Mid OM stented with 2.5 x 22 mm Zhang overlapping with distal aspect of prior stent Stent postdilated with 3.0 NC balloon Post procedure IVELISSE 3 flow, stent well expanded with minimal residual stenosis and no apparent cardiac complications. Arterial Closure: Angio-Seal Summary: 1. Successful PCI of mid RCA in-stent restenosis with 3.5 x 12 mm [place] drug- eluting stent (postdilated with 3.75 NC). 2. Successful PCI of distal RCA with 2.75 x 18 mm Zhang drug-eluting stent (postdilated with 3.0 NC). 3. Successful PCI of mid LAD in-stent restenosis with 3.5 x 18 mm [place] drug- eluting stent (postdilated with 3.75 NC). 4. Successful PCI of mid OM1 with 2.5 x 22 mm Zhang; postdilated with 3.0 NC). -PTCA of ostium of superior branch of OM1 with 2.0 balloon and minimal residual stenosis Recommendations: To PCU for continued monitoring Continue dual-antiplatelet therapy for at least 1 year, likely extended DAPT in the setting of multivessel stenting/overlapping stents Continue statin, and and GDMT for cardiomyopathy Consult cardiac Rehab Hemodynamics Rest Ao:: 139/63/89 Final Ao: 165/75/111 LV: -- Recommendations Recommendations: PCI without planned CABG Specimens Specimens: None Radiation Exposure (mGy) 5454 Contrast (mls) 105 Fluids (cc crystalloids) Fluids (cc crystalloids): 185 Drains Drains: None Anesthesia Moderate Procedural Complication(s) None Disposition PCU I attest to the content of the Intraoperative Record and any orders documented therein. Any exceptions are noted below. [facility] Card Cath Procedure Codes Cardiac Catheterization Procedure 1: Cardiovascular Cath Procedures: 14139 Coronaries Therapeutic Services & Ancillary Proc Procedure 1: Cardiovascular Tx and Anc Procedures: 77508 Ultrasonic Guidance Vascular Access Moderate Sedation Procedure 1: Sedation/Anesthesia: 03172 Mod Sedation by the same physician;Init15 Min Child Age 5 & Up Procedure 2: Sedation/Anesthesia: 10174 Mod Sedation by the same physician; Ea [id number] Minutes Stenting Procedure 1: Cardiovascular Stent Procedures: 68188 Perc transcatheter placement of intracoronary stent(s), with ang Procedure 2: Cardiovascular Stent Procedures: 19928 Ea addl branch of a major coronary artery Procedure 3: Cardiovascular Stent Procedures: 45949 Ea addl branch of a major coronary artery PG Care Time/CCT Total # of Minutes Spent Total Time Spent with Patient: Total time spent is greater than 50% in coordination of care (as documented) at patient's floor/unit and/or counseling patient:
[2020-08-01] MEDS ORDERED: SODIUM CHLORIDE 0.9% 1000ML 1,000 ML IV SCH (12:30)
--- NOTE | 2020-08-01 13:13 | Hospitalist Progress Note ---
Date of Service August 01, 2020 Assessment & Plan Admission and Anticipated Discharge Date Admission Date: July 30, 2020 75 yo M w/ PMHx. of Multivessel CAD s/p Multiple PCI's Bicuspid Aortic Valve s/p Bioprosthetic AVR 2011, Ascending Aortic Aneurysm, Complete Heart Block s/p Medtronic Dual Chamber Pacemaker 2011, COPD, Dyslipidemia, Hypertension, Prior Pulmonary Emboli following AVR surgery 2011, Carotid Artery Disease, COVID 27 March 2020 presents with weakness and falling likely due to cardiomyopathy. Echocardiogram from 07/26/2020 shows moderately dilated left ventricle with severely reduced systolic function with an EF of 25 to 30% global hypokinesis. - Patient's troponin mildly elevated 0.05 stable/downtrended - Cardiology consulted - catheterization on 07/31 w/ Dr. Raphael jimenez/ finding of three vessel disease amenable to stenting - PCI performed today with multiple stents placed - discussed with Orthopedics Dr. Brown and he is okay with starting dual- antiplatelet therapy (DAPT) in the postoperative setting (revision decompression/fusion L2-3, L3-4) - will likely require 1+ year of DAPT - Patient can be continued on aspirin at this time low-dose metoprolol - His EKG shows paced rhythm - no events on tele overnight - Chest x-ray does not show overt heart failure at this time Anemia - Patient has acute blood loss anemia this could be impacting his hypotension the patient be transfused 1 unit of packed red blood cells given his profound cardiomyopathy diuretic therapy will be considered but will be based upon his blood pressure response to infusion of packed red blood cells COPD (chronic obstructive pulmonary disease): - Patient be continued on budesonide formoterol, pro-air as needed and Spiriva CKD (chronic kidney disease): - Typically is chronic kidney disease stage III Diabetes mellitus type 2, controlled: - Patient typically is on glimepiride plus alogliptin his glucoses are moderately elevated likely due to some perioperative steroid use. - holding home medication - continue sliding scale insulin Deconditioning - with recent falls - PT, OT evaluation will be important for discharge planning DVT: Heparin Code: Full Diet: CC DM II Dispo:PCU/tele COVID: negative 07/30 Supervising Physician Co-Signing Physician Notes I personally examined the patient and verified all dye points of history and exam, discussed case, and agree with decision making with Dr Arcadio max but feeling ok otherwise vitals noted nad heent nc at mmm breathing unlabored no accessory muscles good effort skin no rashes no pallor or icterus CAD - post stenting x4 and balloon x1. med management. hopefully home tomorrow otherwise as above Subjective Mr. Chencho Wright is doing okay. He was not having any chest pain or palpitations this morning. He did not have any urinary symptoms. Review of Systems Review of Systems: Constitutional: denies fevers, chills Cardiac: denies chest pain, palpitation, edema Pulm: denies cough, shortness of breath GI: denies abdominal pain MSK: admits lower back pain : denies dysuria Physical Exam Constitutional: WD/WN, vitals as above Eyes: PERRL, conjunctivae normal, anicteric sclerae ENMT: external ear and nose normal, oropharynx normal Neck: normal visual inspection Respiratory: normal respiratory effort, lungs clear to auscultation Cardiovascular: Rate/Rhythm: regular rate systolic murmur 2/6 Gastrointestinal (Abdomen): normal bowel sounds, soft, nontender, no hepatosplenomegaly Results & Data Results & Data ([facility]) Vital Signs (Past 12 Hours) Vital Signs Temp Pulse Pulse Resp BP BP Pulse Ox 08/01/20 12:41 37.0 C 75 18 131/65 96 08/01/20 08:03 36.8 C 71 71 H 134/62 18 L 08/01/20 07:17 70 08/01/20 02:31 36.7 C 74 17 136/73 96
--- NOTE | 2020-08-01 14:17 | Billing Data ---
Date of Service August 01, 2020 Coding Level of Care Code 45409 Subseq Hosp Care Lvl 3
--- NOTE | 2020-08-01 14:17 | Billing Data ---
Date of Service August 01, 2020 Coding Level of Care Code 82619 Subseq Hosp Care Lvl 3
--- NOTE | 2020-08-01 14:46 | Pharmacy Report ---
Pharmacy Glycemic Short Note 2 - Date of Service August 01, 2020 - Glycemic Short BSG Results (Last 24 hours): 07/31/20 07/31/20 08/01/20 16:33 20:03 07:37 Glucose POC Glucose 143 H 107 H 167 H 08/01/20 08/01/20 08:38 12:34 Glucose 148 H POC Glucose 191 H OUTPATIENT ANTIDIABETIC REGIMEN: * Lantus 30 bid, glimepiride ASSESSMENT: 08/01: * Patient received total of 21 units of insulin yesterday * Fasting 167 mg/dL - refused PM lantus * NPO this AM - reduced Lantus ~30% / started on diet. Plan to titrate up Lantus PLAN FOR INPATIENT GLYCEMIC CONTROL: * Hold outpatient oral diabetes medications * Basal insulin * Lantus 7 x 1, then 0-8 units at HS * Bolus insulin * NovoLog per scale ACHS or Q6hrs while NPO * Goal Range: Low 110 mg/dL - High 140 mg/dL * Correction Factor: 25 mg/dL/unit * Nutritional / Prandial insulin per carb ratio of 1 unit per 8 grams CHO consumed PLAN FOR DISCHARGE: * tbd
--- NOTE | 2020-08-01 14:56 | Electrocardiogram Report ---
Test Reason : Blood Pressure : / mmHG Vent. Rate : 071 BPM Atrial Rate : 071 BPM P-R Int : 176 ms QRS Dur : 154 ms QT Int : 468 ms P-R-T Axes : 052 -64 108 degrees QTc Int : 508 ms Atrial-sensed ventricular-paced rhythm Abnormal ECG When compared with ECG of 30-JUL-2020 11:49, Vent. rate has decreased BY 3 BPM Confirmed by Surinder Berry ([id number]) on 08/01/2020 2:56:20 PM Referred By: REFERRED SELF Confirmed By:Surinder Berry
[2020-08-01] MEDS: ATORVASTATIN 40 MG TAB PO SCH (20:03)
[2020-08-01] MEDS: SENNA 8.6 MG TAB PO SCH (20:04)
[2020-08-02] MEDS: INSULIN ASPART 100 UNITS/ML 3 ML PEN SC SCH ×2 (08:21→12:33)
[2020-08-02] MEDS: INSULIN GLARGINE SOLOSTAR 100 UNITS/ML 3 ML PEN SQ SCH (08:22)
[2020-08-02] MEDS: UMECLIDINIUM BROMIDE 62.5MCG/BLISTER 7 PUFFS/INHALER INH SCH (08:23)
[2020-08-02] MEDS: FLUTICASONE/VILANTEROL 100/25MCG 14 PUFFS/INHALER INH SCH (08:23)
[2020-08-02] MEDS: DONEPEZIL HCL 10 MG TAB PO SCH (08:26)
[2020-08-02] MEDS: CLOPIDOGREL BISULFATE 75 MG TAB PO SCH (08:26)
[2020-08-02] MEDS: ASPIRIN 81 MG ECTAB PO SCH (08:26)
[2020-08-02] MEDS: busPIRone 15 MG TAB PO SCH ×2 (08:26→12:54)
[2020-08-02] MEDS: PARoxetine HCL 20 MG TAB PO SCH (08:26)
[2020-08-02] MEDS: MEMANTINE HCL 5 MG TAB PO SCH (08:26)
[2020-08-02] MEDS: DOCUSATE SODIUM 100 MG CAP PO SCH (08:26)
[2020-08-02] MEDS: FINASTERIDE 5 MG TAB PO SCH (08:26)
[2020-08-02] MEDS: DULoxetine HCL 60 MG CAP PO SCH (08:26)
[2020-08-02] MEDS: HEPARIN SOD 5,000 UNIT/0.5 ML VIAL SQ SCH (08:27)
[2020-08-02] MEDS: METOPROLOL TARTRATE 25 MG TAB PO SCH (08:27)
[2020-08-02 08:50] LABS: BUN Creatinine Ratio 21.5 (10-20); Calcium 8.5 mg/dl (8.5-10.1); Creatinine Clr Calc Pharmacy 58.6 ml/min; Est GFR (African American) 67.3; Potassium 4.1 mmol/L (3.5-5.1)
--- NOTE | 2020-08-02 12:07 | Discharge Summary ---
Date of Service August 02, 2020 Admission HPI Per Admitting Provider 75-year-old male who presents to the ED with a chief complaint of low back pain. The patient states that he had back surgery last week and was discharged yesterday from the hospital. He states that during his stay they did an echocardiogram that was abnormal and his seam sewer, Dr. Saba, recommended a cardiac catheterization. The patient stated yesterday that he was here long enough and decided to go home. When he got home last night, he fell twice because of weakness and some lightheadedness. He states that he was concerned about hurting his back. He states that he has generalized body aches. If he gets up too fast, his lightheadedness seems worse. His initial blood pressure when he came in today was 86/51.The patient reports generalized weakness. Admission Exam Per Admitting Provider The patient appeared well nourished and normally developed. Vital signs as documented. Head exam is normocephalic atraumatic no scleral icterus Neck is without JVD, thyromegaly, or carotid bruits. Lungs are diminished and mildly labored throughout Cardiac exam, irregular but rate controlled Abdominal exam reveals normal bowel sounds, soft non tender, no masses Extremities are nonedematous and both pedal pulses are present Neurologic exam is alert and oriented, no focal loss of strength or sensation reproducible pain to his right leg removed Skin is without bruises or rashes Psychologically is without concerns for anxiety or depression. Principal Diagnosis CAD Recent lumbar surgery weakness Cardiomyopathy Discharge Exam Constitutional: WD/WN, vitals as above Eyes: PERRL, conjunctivae normal, anicteric sclerae ENMT: external ear and nose normal, oropharynx normal Neck: normal visual inspection Respiratory: normal respiratory effort, lungs clear to auscultation Cardiovascular: Rate/Rhythm: regular rate systolic murmur 2/6 Gastrointestinal (Abdomen): normal bowel sounds, soft, nontender, no hepatosplenomegaly Discharge Data Allergies Allergy/AdvReac Type Severity Reaction Status Date / Time bee venom protein (honey bee) Allergy Severe SWELLING Verified 07/30/20 14:37 Sulfa (Sulfonamide Allergy Intermediate "SULFA": Verified 07/30/20 14:37 Antibiotics) RASH Penicillins Allergy Unknown UNKNOWN Verified 07/30/20 14:37 codeine AdvReac Intermediate HALLUCINATI Verified 07/30/20 14:37 NG Consultations 07/30/20 13:37 ED Decision to Admit Stat 07/30/20 17:39 Consult Cardiology Routine 08/01/20 12:27 Consult Cardiac Rehabilitation Routine Procedures Performed Operation Date: 07/31/20 09:30 Actual Procedures s Cineradiography w/Routine Exam - Sammy Lim MD p Cath, Coronaries ONLY (no LV) - Sammy Lim MD Operation Date: 08/01/20 09:00 Actual Procedures p Drug Eluting Stent SGl Vessel - Sammy Lim MD s Drug Eluting Stent each ADDTL Vessel - Sammy Lim MD s Ultrasound Vascular Access - Sammy Lim MD s Cineradiography w/Routine Exam - Sammy Lim MD s Cath, Left with Cors and Vent - Sammy Lim MD Ordered Studies 07/31/20 07:30 CL Cath Imgs for PACS use only Routine 08/01/20 06:32 CL Cath Imgs for PACS use only Routine Hospital Course (1) CAD, multiple vessel: 75 yo M w/ PMHx. of Multivessel CAD s/p Multiple PCI's Bicuspid Aortic Valve s/p Bioprosthetic AVR 2011, Ascending Aortic Aneurysm, Complete Heart Block s/p Medtronic Dual Chamber Pacemaker 2011, COPD, Dyslipidemia, Hypertension, Prior Pulmonary Emboli following AVR surgery 2011, Carotid Artery Disease, COVID 27 March 2020 presents with weakness and falling likely due to cardiomyopathy. Echocardiogram from 07/26/2020 shows moderately dilated left ventricle with severely reduced systolic function with an EF of 25 to 30% global hypokinesis. - Patient's troponin was initially mildly elevated 0.05 downtrended - Cardiology consulted - catheterization on 07/31 w/ Dr. Lim w/ finding of three vessel disease amenable to stenting - PCI performed 08/01 with 4 stents placed - discussed with Orthopedics Dr. Brown and he was okay with starting dual- antiplatelet therapy (DAPT) in the postoperative setting (revision decompression/fusion L2-3, L3-4 done on the ) - will likely require 1+ year of DAPT - Patient should continued on aspirin, plavix, and low-dose metoprolol - rec. per cardiology to start PORTIA-i, did not start in the hospital due to hypotension prior to admission - will require cardiac rehab Anemia - Patient has acute blood loss anemia - transfused 1 unit of packed red blood cells given his profound cardiomyopathy - Check CBC in 3 days-1week COPD (chronic obstructive pulmonary disease): - continue on budesonide formoterol, pro-air as needed and Spiriva CKD (chronic kidney disease): - Typically is chronic kidney disease stage III Diabetes mellitus type 2, controlled: - continue home medications Deconditioning - with recent falls - status much improved post stenting - put in order for outpatient PT OT evaluation and treatment Total Time Total Time Spent Total Time Spent (In Minutes): <30 Discharge Plan Discharge Items Patient Disposition: Home - Self-Care Reason For Visit: WEAKNESS, CARDIOMYOPATHY Discharge Diagnosis: CAD s/p stent Cardiomyopathy low back pain Activity: Per Instructions section Non-emergency contact: Primary Care Provider, Surgeon and Sand Mixer Operator Call non-emergency contact if: your pain is not controlled Follow-up/Referrals: Leandro Rodrigues MD [Primary Care Provider] - Diet: Carb Consistent or DM2 Addtl Attending Provider Instructions: Blocked arteries to your heart (coronary artery disease) You were found to have multiple blood vessels to your heart that were narrow. You will need to continue taking anti-platelet medications including Aspirin and Clopidogrel (Plavix) every day. These medications will need to be continued for the foreseeable future and are important to keep the stents that were placed from becoming blocked off. You will need to follow up with your seam sewer and primary care doctor to address any other changes in medications that may improve your outcomes overall. Weakness You came to the hospital for weakness after your spine surgery along with 2 falls. The weakness that you were experiencing was likely related to the blockages in the blood vessels in your heart. You will need go to outpatient physical and occupational therapy to continue to work on improving your strength outside the hospital. You will also need to work with cardiac rehab, again to improve your strength. Pending Studies at Discharge: Yes Studies:: blood cultures no growth at 48 hours Stand-Alone Forms: My [employer], Smoking Cessation Medications and DC Order Prescriptions: New clopidogrel 75 mg tablet 75 mg PO DAILY Qty: 30 RF: 1 Continued glimepiride 4 mg tablet 4 mg PO BID Qty: 180 RF: 1 budesonide-formoterol [Symbicort] 160-4.5 mcg/actuation HFA aerosol inhaler 2 puff inhalation BID RF: 0 Lantus Solostar U-100 Insulin 100 unit/mL (3 mL) insulin pen 30 units SUBCUT BID RF: 0 acetaminophen [Tylenol Extra Strength] 500 mg Tablet 1,000 mg PO TID PRN (Reason: Pain) RF: 0 albuterol sulfate [ProAir HFA] 90 mcg/actuation HFA aerosol inhaler 2 puffs INH Q4H PRN (Reason: shortness of breath or wheezing) RF: 0 paroxetine HCl 20 mg Tablet 20 mg PO QAM RF: 0 buspirone 30 mg Tablet 30 mg PO TID RF: 0 Spiriva with HandiHaler 18 mcg Capsule, W/Inhalation Device 1 cap INHALATION QAM RF: 0 Onglyza 5 mg Tablet 5 mg PO QAM RF: 0 oxycodone 5 mg tablet 5 mg PO Q6H PRN (Reason: pain) Qty: 14 RF: 0 sennosides [Senokot] 8.6 mg tablet 8.6 mg PO HS Qty: 30 RF: 0 docusate sodium [Colace] 100 mg capsule 100 mg PO BID Qty: 60 RF: 0 finasteride 5 mg Tablet 5 mg PO QAM RF: 0 epinephrine [EpiPen] 0.3 mg/0.3 mL Auto-Injector 0.3 mg IM Q3H PRN (Reason: Allergy Symptoms) RF: 0 metoprolol tartrate 25 mg Tablet 12.5 mg PO BID RF: 0 gabapentin 300 mg Capsule 300 mg PO QID RF: 0 duloxetine 60 mg Capsule,Delayed Release(Dr/Ec) 60 mg PO QAM RF: 0 lamotrigine 200 mg Tablet 200 mg PO HS RF: 0 hydrocortisone 2.5 % Ointment 1 applic TOPICAL HS PRN (Reason: Itching) RF: 0 atorvastatin [Lipitor] 40 mg Tablet 40 mg PO HS RF: 0 donepezil 10 mg Tablet 10 mg PO QAM RF: 0 memantine 5 mg Tablet 5 mg PO BID RF: 0 aspirin 81 mg tablet,delayed release (DR/EC) 40.5 mg PO QAM RF: 0 tramadol [Ultram] 50 mg tablet 50 mg PO Q4H PRN (Reason: pain) Qty: 20 RF: 0 nitroglycerin [Nitrostat] 0.4 mg tablet, sublingual 0.4 mg Sublingual DIRECTED PRN (Reason: Chest Pain) Qty: 30 RF: 0 Discharge Orders: Discharge Order (Routine); Ordered 08/02/20 Ordered By: Donnie Lezama/Other Patient Handouts: Heart Attack Dc Admission Data Admit Date/Time: 07/30/20 13:58 Attending Provider: Denis Rasihd Admit Provider: Lam Carter Primary Care Provider: Leandro Rodrigues Other Providers: Lam Carter ; Raymundo Saba ; Harpreet Jackson Other Interventions: Discharge Summary Assessment (RN) Last Done: 08/02/20 12:13 Supervising Physician Co-Signing Physician Notes I personally examined the patient and verified all dye points of history and exam, discussed case, and agree with decision making with Dr Ervin feeling good walking well far less weak than before. also admits to not really taking proper safety precautions at home before as well. dr ervin d/w family vitals noted nad heent nc at mmm breathing unlabored no accessory muscles good effort skin no rashes no pallor or icterus CAD - post stenting x4 and balloon x1. med management. stable for home outpt therapy otherwise as above Resident Activity Tracking Resident Involvement: Resident Care Provided Care Provided: Adult Hospital Medicine CBC Results Results Complete Blood Count Results: RBC 3.50 M/uL (4.7-6.1) L 08/01/20 WBC 18.30 K/uL (4.8-10.8) H 08/01/20 Hgb 10.5 g/dL (14.0-18.0) L 08/01/20 Hct 32.5 % (42-52) L 08/01/20 Plt Count 403 K/uL (130-400) H 08/01/20 Chemistry (BMP) Results BMP Results: Sodium 137 mmol/L (136-145) 08/02/20 Potassium 4.1 mmol/L (3.5-5.1) 08/02/20 Chloride 103 mmol/L (98-107) 08/02/20 BUN 26 mg/dl (7-18) H 08/02/20 Creatinine 1.22 mg/dl (0.6-1.4) 08/02/20 Glucose 191 mg/dl (70-99) H 08/02/20
--- NOTE | 2020-08-02 16:39 | Billing Data ---
Date of Service August 02, 2020 Coding Level of Care Code D/C Day Management <30 mins
== END 2020-08-02 13:15 | disposition home or self-care (01) | DRG 982 ==
LOC: ED 11:21 → 2S 13:58
PROC: CLB.CCO (2020-07-31 09:30)
DX: I12.9 Hypertensive chronic kidney disease with stage 1 through stage 4 chronic kidney disease, or unspecified chronic kidney disease; Z79.4 Long term (current) use of insulin; E11.22 Type 2 diabetes mellitus with diabetic chronic kidney disease; Z79.82 Long term (current) use of aspirin; R53.1 Weakness; N18.30 Chronic kidney disease, stage 3 unspecified; I25.10 Atherosclerotic heart disease of native coronary artery without angina pectoris; E86.0 Dehydration; Z95.5 Presence of coronary angioplasty implant and graft; Z95.0 Presence of cardiac pacemaker; M54.5 Low back pain; J44.9 Chronic obstructive pulmonary disease, unspecified; Z91.81 History of falling; D62 Acute posthemorrhagic anemia; E78.5 Hyperlipidemia, unspecified; E11.65 Type 2 diabetes mellitus with hyperglycemia; I42.9 Cardiomyopathy, unspecified; F03.90 Unspecified dementia, unspecified severity, without behavioral disturbance, psychotic disturbance, mood disturbance, and anxiety; Z87.891 Personal history of nicotine dependence; Z79.899 Other long term (current) drug therapy

== ENCOUNTER 2021-02-06 11:58 | Observation (INO) ==
[2021-02-06] MEDS ORDERED: VANCOMYCIN HCL 1000MG/20ML VIAL ONE (13:02)
[2021-02-06] MEDS ORDERED: LIDOCAINE 1% LOCAL 20 ML VIAL ONE (13:02)
[2021-02-06] MEDS ORDERED: fentaNYL citrate 100 MCG/2 ML VIAL ONE (13:02)
[2021-02-06] MEDS ORDERED: MIDAZOLAM HCL 5 MG/ML 1 ML VIAL ONE (13:02)
[2021-02-06] MEDS ORDERED: BUPIVACAINE 0.25% 30 ML VIAL ONE (13:03)
[2021-02-06] MEDS ORDERED: WATER, STERILE FOR INJ 10 ML VIAL ONE (13:03)
--- NOTE | 2021-02-06 13:07 | Pre Anesthesia Assessment ---
Date of Service February 06, 2021 Pre Sedation Assessment Vital Signs Temp Pulse Resp BP Pulse Ox 02/06/21 12:07 36.4 C L 80 20 120/67 97 Cardiovascular + regular rhythm Respiratory + respiratory effort normal Pre-Sedation Airway Assessment Smoking Status: Former smoker Hx Sleep Apnea: No Hx Difficult Intubation: No Short, Thick Neck: No Thyromental Distance: > or= 3.5 Finger Breadths Oral Cavity: + Dentures Mallampati Class: I ASA: ASA3 NPO Status Date of Last Intake of Fluids: 02/06/21 Time of Last Intake of Fluids: 23: Date of Last Intake of Solid Food: 02/05/21 Time of Last Intake of Solid Foods: 23:30 Procedure Planning Contraindications for Sedation: none Current Medications Reviewed: Yes Notes The planned sedation has been discussed with the patient. Informed Consent was obtained. I have identified the patient, determined the appropriateness of sedation and have assessed the patient immediately prior to the procedure. All medicine(s) and interventions are by my order.
--- NOTE | 2021-02-06 13:10 | History & Physical Report ---
Date of Service February 06, 2021 Assessment & Plan (1) Dyspnea on exertion: (2) Cardiomyopathy: (3) CAD, multiple vessel: (4) Third degree AV block: With symptoms, reduced LV function (EF 45%) and 100% RV pacing, will plan "upgrade" to BiV pacemaker. History of Present Illness Chief Complaint: Patient with ischemic heart disease, cardiomyopathy, heart block and AVR continues to have dyspnea and is pacing 100% in the RV apex. Primary Care Provider: Leandro Rodrigues MD Allergies Allergy/AdvReac Type Severity Reaction Status Date / Time bee venom protein (honey bee) Allergy Severe SWELLING Verified 01/15/21 08:51 Sulfa (Sulfonamide Allergy Intermediate "SULFA": Verified 01/15/21 08:51 Antibiotics) RASH Penicillins Allergy Unknown UNKNOWN Verified 01/15/21 08:51 codeine AdvReac Intermediate HALLUCINATI Verified 01/15/21 08:51 NG Home Medications Medication Instructions Recorded Confirmed Type epinephrine [EpiPen] 0.3 mg IM Q3H PRN 10/21/18 02/06/21 History finasteride 5 mg PO QAM 10/21/18 02/06/21 History atorvastatin [Lipitor] 40 mg PO HS 10/22/18 02/06/21 History donepezil 10 mg PO QAM 10/22/18 02/06/21 History duloxetine 60 mg PO QAM 10/22/18 02/06/21 History gabapentin 300 mg PO QID 10/22/18 02/06/21 History hydrocortisone 1 applic TOPICAL HS PRN 10/22/18 02/06/21 History lamotrigine 200 mg PO HS 10/22/18 02/06/21 History memantine 5 mg PO BID 10/22/18 02/06/21 History aspirin 81 mg tablet,delayed 40.5 mg PO QAM tab 04/03/19 02/06/21 History release insulin glargine 100 unit/mL (3 30 units SUBCUT BID ml 07/25/19 02/06/21 History mL) subcutaneous pen acetaminophen [Tylenol Extra 1,000 mg PO TID PRN 03/18/20 02/06/21 History Strength] albuterol sulfate [ProAir HFA] 2 puffs INH Q4H PRN 03/18/20 02/06/21 History budesonide-formoterol HFA 160 2 puff INHALATION BID 10/13/20 07/01/21 History mcg-4.5 mcg/actuation aerosol inhaler Onglyza 5 mg PO QAM 07/21/20 02/06/21 History Spiriva with HandiHaler 1 cap INHALATION QAM 07/21/20 02/06/21 History buspirone 30 mg PO TID 07/21/20 02/06/21 History clopidogrel 75 mg tablet 75 mg PO DAILY #90 tab 08/21/20 02/06/21 Rx nitroglycerin 0.4 mg sublingual 0.4 mg SUBLINGUAL Q5M PRN #30 tab 08/21/20 02/06/21 Rx tablet linaclotide 145 mcg capsule 145 mcg PO DAILY #90 cap 09/04/20 02/06/21 Rx mupirocin 2 % topical ointment 1 applic TOPICAL BID #15 g 12/03/20 02/06/21 Rx glimepiride 4 mg tablet 4 mg PO BID #180 tab 12/23/20 02/06/21 Rx metoprolol succinate 50 mg 50 mg PO DAILY #90 tab 01/07/21 02/06/21 Rx tablet,extended release 24 hr isosorbide mononitrate 30 mg PO DAILY #30 tab 01/15/21 02/06/21 Rx meloxicam 7.5 mg tablet 7.5 mg PO DAILY #30 tab 02/04/21 02/06/21 Rx Past Med/Surg History Medical History Actinic keratoses Acute dehydration Acute hyperglycemia Anemia Aneurysm of ascending aorta Asthma with COPD Bicuspid aortic valve replaced with bioprosthetic valve BPH (benign prostatic hyperplasia) CAD (coronary artery disease) Cardiomyopathy Carotid artery stenosis CKD (chronic kidney disease) COPD (chronic obstructive pulmonary disease) COVID-19 Dementia Elevated troponin Epididymitis, left HTN (hypertension), benign Hyperlipidemia Left buttock abscess Leukocytosis Lumbar radiculopathy Myelodysplastic syndrome Myocardial infarction Orthostatic hypotension Pacemaker Placed after AVR due to complete heart block Renal insufficiency Testicular pain TIA (transient ischemic attack) Weak urinary stream Surgical History H/O cardiac catheterization H/O endoscopic retrograde cholangiopancreatography History of back surgery 05/10/2020 Grade 2 view with Mac 3 blade History of colonoscopy History of repair of rotator cuff History of tonsillectomy Hx of cholecystectomy S/P aortic valve replacement S/P coronary artery stent placement S/P right knee surgery Status post cardiac pacemaker procedure for h/o complete heart block s/p his AVR Family History Sister Anxiety Brother Alcohol abuse Father Cardiac disorder Myocardial infarction Mother Depression Kidney disease Lung disease Stroke Other Family history non-contributory Denies family history of Ovarian cancer Prostate cancer Breast cancer Colorectal cancer Social History Smoking Status: Former smoker Tobacco Type: Cigarettes Age Quit Using Tobacco: 64; Cigarettes Per Day: Random cigarette usage; Second Hand Exposure: No; Hx Alcohol Use: No Hx Substance Use: No Preferred Language: Kazakh Communication Ability: Effective Visual Impairment: No Limitations Hearing Ability: Use of Hearing Aid Neon Sign Servicer Required: No Beliefs That Will Affect Care: None marital status: Current Living Situation: Alone Current Living Situation Comment: House Other Information That Helps Us Care for You: No Feels Safe at Home: Yes Safety Concerns: Feels Safe At This Time Childhood Exposure to Second-Hand Smoke: Yes Seatbelt Use: always Sunscreen Use: Yes Assistive Devices: Cane Review of Systems Review of Systems: All systems reviewed & are unremarkable except as noted in HPI & below Physical Exam Physical Exam: Alert. Oriented Normal respiratory effort Well-healed pacemaker site in left upper chest and sternotomy scar Normal rhythm Results & Data Results & Data ([facility]) Vital Signs (Past 12 Hours) Vital Signs Temp Pulse Resp BP Pulse Ox 02/06/21 12:07 36.4 C L 80 20 120/67 97
--- NOTE | 2021-02-06 14:38 | Post Anesthesia Assessment ---
Date of Service February 06, 2021 Post Sedation Assessment Vital Signs Temp Pulse Resp BP Pulse Ox 02/06/21 12:07 36.4 C L 80 20 120/67 97 Recovery Score Activity: Moves 4 extremities Respiration: Deep Breath/Cough Circulation: +/-20% PreAnes Value Consciousness: Fully Awake Oxygen Saturation: > 92% On Room Air Discharge Sedation Level of Care: Fast Track Phase II Post Sedation Plan On clinical assessment, the patient appears to have tolerated the sedation without complications. Patient is recovering as anticipated. Patient will continue to be monitored by nursing and may be discharged when sedation discharge criteria are met per below protocol. Upon Completions of procedure up to 15 minutes continue every 5 minute vital signs and the P.A.R. score; then discharge to a Phase I or Fast Track to Phase II per the following guidelines: * Discharge Patient to appropriate Phase II area if PAR is 8 or greater or return to pre- procedure baseline. The post - procedure orders will be as directed. * If PAR score is less than 8 or not return to pre-procedure baseline then patient will follow Phase I monitoring till PAR is reached for Phase II. The Phase I may be done in procedure room or may call to secure a Phase I area. * If naloxone or flumazenil are used for reversal, hold in Phase I for continued monitoring from when last reversal dose was given for a minimum of 60 minutes or longer pending the nurse and/or physician discretion of patient condition before discharge to Phase II. Please call the Sedation Physician to re-evaluate and complete post-note for discharge to Phase II area. Do NOT discharge from procedure sedation or Phase 1 until post- sedation evaluation note is complete by procedure /sedation MD Sedation Discharge Instructions to be given to the patient at discharge to home.
--- NOTE | 2021-02-06 14:39 | Electrophysiology Report ---
Date of Service February 06, 2021 Electrophysiology Procedure Electrophysiology Procedure Report Procedure performed: Pacemaker generator change and addition of left ventricular pacing lead staff wigs salesperson: Sanjiv Choi MD indication: The patient is a 75-year-old gentleman with history of complete heart block status post implantation of dual chamber permanent pacemaker. He was noted to have persistently low ejection fraction despite optimal medical therapy and has symptoms of dyspnea on exertion. He still to be good candidate for an upgrade to a biventricular device due to 100% right ventricular apical pacing. Procedure detail: Patient was informed the risks benefits alternatives to the intended procedure. He understood which proceed. He was taken to the electrophysiology suite in a fasting state. Conscious sedation was administered per protocol the patient was monitored electrocardiographically throughout today's procedure. The left upper pectoral area was prepped and draped in usual sterile fashion. This area was anesthetized using subcutaneous menstruation of lidocaine solution. An incision was made at the site and carried down to the previously implanted pulse generator using a plasma blade. Plasma blade was also employed for hemostasis. The previously port implanted device and leads were then freed from the surrounding scar tissue. Partial capsulotomy was performed. Limited left axillary venography was then performed in order to ensure patency of the axillary vein. Once confirm the axillary vein was accessed using modified Seldinger technique and sheath was placed over guidewire this site. The sheath was used facilitate passage of the guiding catheter for engagement of the coronary sinus. Once engaged a coronary sinus venogram was performed in order to identify suitable target vessel for a pacing lead. Subsequent to this maneuver a pacing lead was delivered to the target vessel using standard guidewire techniques. Adequate sensing and threshold parameters were performed in the absence of diaphragmatic stimulation at high-output was confirmed prior to removal of the guiding sheath. The proximal portion of this lead was then sutured to the prepectoralis fascia using nonabsorbable suture. The pocket was irrigated with antibiotic solution. The leads were detached from the old pulse generator and attached to the new pulse generator. The pulse generator and leads were then placed inside a antibiotic impregnated envelope prior to placement in the pocket. Pocket was subsequently closed in 3 layers of absorbable suture. Steri-Strips and sterile dressing were applied. Patient tolerated procedure well. There were no immediate complications. Equipment used new pulse generator: Rehabilitation Services Manager [employer] model number [id number] serial number [id number] S explanted pulse generator: Rehabilitation Services Manager [employer] model number SEDR01 serial number [id number] retained right atrial lead: Rehabilitation Services Manager [employer] model 5076 serial number [id number] Retained right ventricular lead: Rehabilitation Services Manager [employer] model 5076 serial number [id number] new coronary sinus lead: Rehabilitation Services Manager [employer] model 4298 number [id number] V measured data right atrial lead: P-waves measured 3 mV. Pacing threshold was 1 volt at 0.4 milliseconds with a pacing impedance of 399 Ohms right ventricular lead: No intrinsic R-waves were measured. Pacing threshold was 0.5 volts at 0.4 milliseconds with a pacing impedance of 418 Ohms Coronary sinus lead: No intrinsic R-waves. Pacing threshold 0.75 volts at 0.4 milliseconds with a pacing impedance of 551 Ohms impression: Successful "upgrade" of dual-chamber permanent pacemaker to biventricular pacemaker [facility] Electrophysiology codes Pacing Procedure 1: Pacin Multi Pacemaker replacement Procedure 2: Pacin BiV electrode only - stand alone procedure PG Moderate Sedation Codes Moderate Sedation Codes Procedure 1: Sedation/Anesthesia: 70169 Mod Sedation by the same physician;Init15 Min Child Age 5 & Up Procedure 2: Sedation/Anesthesia: 29585 Mod Sedation by the same physician; Ea [id number] Minutes
[2021-02-06] MEDS ORDERED: ALBUTEROL HFA 8 GM INHALER INH PRN (14:43)
[2021-02-06] MEDS: GABAPENTIN 300 MG CAP PO SCH ×2 (17:58→20:02)
[2021-02-06] MEDS ORDERED: DEXTROSE 50% 50 ML SYRINGE IV PRN (18:15)
[2021-02-06] MEDS ORDERED: CARBOHYDRATES FOR HYPOGLYCEMIA PO PRN (18:15)
[2021-02-06] MEDS ORDERED: GLUCOSE 40% GEL 15 GM TUBE PO PRN (18:15)
[2021-02-06] MEDS ORDERED: GLUCOSE 10 TABS/TUBE PO PRN (18:15)
[2021-02-06] MEDS ORDERED: GLUCAGON FOR INJ 1 MG VIAL IM PRN (18:15)
[2021-02-06] MEDS: GLIMEPIRIDE 2 MG TAB PO SCH (18:22)
[2021-02-06] MEDS: busPIRone 15 MG TAB PO SCH (20:01)
[2021-02-06] MEDS: MUPIROCIN CALCIUM CREAM 2% 15 GM TUBE EXT SCH (20:02)
[2021-02-06] MEDS: MEMANTINE HCL 5 MG TAB PO SCH (20:02)
[2021-02-06] MEDS: INSULIN GLARGINE SOLOSTAR 100 UNITS/ML 3 ML PEN SQ SCH ×2 (20:03→22:41)
[2021-02-06] MEDS ORDERED: lamoTRIgine 100 MG TAB PO SCH (21:00)
[2021-02-06] MEDS ORDERED: ATORVASTATIN 40 MG TAB PO SCH (21:00)
[2021-02-06] MEDS: ceFAZolin 2000MG 2,000 MG/15 ML SYR IV SCH (22:10)
[2021-02-07] MEDS: ceFAZolin 2000MG 2,000 MG/15 ML SYR IV SCH (06:00)
--- NOTE | 2021-02-07 08:15 | Discharge Summary ---
Date of Service February 07, 2021 Admission HPI Per Admitting Provider The patient is a 75-year-old gentleman with a history of an ischemic cardiomyopathy and heart block who presented for upgrade of his current pacemaker to include a coronary sinus lead Principal Diagnosis q Discharge Exam at the time of discharge patient was feeling well Evaluation of the implant site did not reveal significant ecchymosis, hematoma or drainage. No erythema. Discharge Data Allergies Allergy/AdvReac Type Severity Reaction Status Date / Time bee venom protein (honey bee) Allergy Severe SWELLING Verified 01/15/21 08:51 Sulfa (Sulfonamide Allergy Intermediate "SULFA": Verified 01/15/21 08:51 Antibiotics) RASH Penicillins Allergy Unknown UNKNOWN Verified 01/15/21 08:51 codeine AdvReac Intermediate HALLUCINATI Verified 01/15/21 08:51 NG Procedures Performed Operation Date: 02/06/21 13:00 Actual Procedures p Lead LV (No Priopr Implant) - Sammy Choi MD s Venogram, Unilateral - Sammy Choi MD p Pacer Gen Change Multiple - Sammy Choi MD Ordered Studies 02/06/21 06:30 CL IVUS Coronary Single Vessel Routine 02/06/21 12:47 CL Cath Imgs for PACS use only Stat Hospital Course (1) Dyspnea on exertion: (2) Cardiomyopathy: (3) CAD, multiple vessel: (4) Third degree AV block: On the day of admission the patient went addition of coronary sinus lead to his dual-chamber permanent pacemaker. The procedure was uncomplicated. The following morning the patient was feeling well. He describes minimal discomfort at the implant site. There is no evidence of hematoma or drainage. No erythema. Device interrogation revealed normal function of all 3 leads. Chest x-ray did not demonstrate pneumothorax and lead position was stable. Total Time Total Time Spent Total Time Spent (In Minutes): 15 Total Time Includes: Examination of the Patient, Medication Reconciliation and Other Discharge Plan Discharge Items Patient Disposition: Home - Self-Care Reason For Visit: Pacemaker Upgrade Discharge Diagnosis: Cardiomyopathy Activity: Per Instructions section Activity Comment: NO lifting left arm above shoulder or behind neck for 6 weeks Lifting: No more than 10 pounds Bathing: Keep incision dry Bathing Comment: Keep wound dry and steri-strip intact until f/u next week Driving/Machine Use: No limitations Non-emergency contact: Brand Inspector Call non-emergency contact if: you have any medication questions, your symptoms worsen, you have a fever, your wound has increased redness, your wound has increased drainage and your wound pain has increased Follow-up/Referrals: Leandro Rodrigues MD [Primary Care Provider] - Diet: Carb Consistent or DM2 and Heart Healthy Addtl Attending Provider Instructions: none Pending Studies at Discharge: No Stand-Alone Forms: My [facility] [employer], Smoking Cessation Medications and DC Order Prescriptions: Continued glimepiride 4 mg tablet 4 mg PO BID Qty: 180 RF: 1 clopidogrel 75 mg tablet 75 mg PO DAILY Qty: 90 RF: 3 nitroglycerin [Nitrostat] 0.4 mg tablet, sublingual 0.4 mg Sublingual Q5M PRN (Reason: Chest Pain) Qty: 30 RF: 5 meloxicam 7.5 mg tablet 7.5 mg PO DAILY Qty: 30 RF: 2 budesonide-formoterol [Symbicort] 160-4.5 mcg/actuation HFA aerosol inhaler 2 puff inhalation BID RF: 0 mupirocin 2 % ointment 1 applic topical BID Qty: 15 RF: 2 metoprolol succinate 50 mg tablet extended release 24 hr 50 mg PO DAILY Qty: 90 RF: 3 Lantus Solostar U-100 Insulin 100 unit/mL (3 mL) insulin pen 30 units SUBCUT BID RF: 0 Linzess 145 mcg capsule 145 mcg PO DAILY Qty: 90 RF: 3 acetaminophen [Tylenol Extra Strength] 500 mg Tablet 1,000 mg PO TID PRN (Reason: Pain) RF: 0 albuterol sulfate [ProAir HFA] 90 mcg/actuation HFA aerosol inhaler 2 puffs INH Q4H PRN (Reason: shortness of breath or wheezing) RF: 0 buspirone 30 mg Tablet 30 mg PO TID RF: 0 Spiriva with HandiHaler 18 mcg Capsule, W/Inhalation Device 1 cap INHALATION QAM RF: 0 Onglyza 5 mg Tablet 5 mg PO QAM RF: 0 finasteride 5 mg Tablet 5 mg PO QAM RF: 0 epinephrine [EpiPen] 0.3 mg/0.3 mL Auto-Injector 0.3 mg IM Q3H PRN (Reason: Allergy Symptoms) RF: 0 gabapentin 300 mg Capsule 300 mg PO QID RF: 0 duloxetine 60 mg Capsule,Delayed Release(Dr/Ec) 60 mg PO QAM RF: 0 lamotrigine 200 mg Tablet 200 mg PO HS RF: 0 hydrocortisone 2.5 % Ointment 1 applic TOPICAL HS PRN (Reason: Itching) RF: 0 atorvastatin [Lipitor] 40 mg Tablet 40 mg PO HS RF: 0 donepezil 10 mg Tablet 10 mg PO QAM RF: 0 memantine 5 mg Tablet 5 mg PO BID RF: 0 aspirin 81 mg tablet,delayed release (DR/EC) 40.5 mg PO QAM RF: 0 isosorbide mononitrate 30 mg tablet extended release 24 hr 30 mg PO DAILY Qty: 30 RF: 5 Discharge Orders: Discharge Order (Routine); Ordered 02/07/21 Ordered By: Sammy Choi Admission Data Admit Date/Time: 02/06/21 14:25 Attending Provider: Sammy Choi Admit Provider: Sammy Choi Primary Care Provider: Leandro Rodrigues Coding Level of Care Code 33515 OBS Care - Discharge Diagnoses Dyspnea on exertion R06.00 Cardiomyopathy I42.9 CAD, multiple vessel I25.10 Third degree AV block I44.2
[2021-02-07] MEDS: busPIRone 15 MG TAB PO SCH (08:24)
[2021-02-07] MEDS: GLIMEPIRIDE 2 MG TAB PO SCH (08:24)
[2021-02-07] MEDS: GABAPENTIN 300 MG CAP PO SCH (08:25)
[2021-02-07] MEDS: MEMANTINE HCL 5 MG TAB PO SCH (08:26)
[2021-02-07] MEDS: MUPIROCIN CALCIUM CREAM 2% 15 GM TUBE EXT SCH (08:26)
[2021-02-07] MEDS: INSULIN GLARGINE SOLOSTAR 100 UNITS/ML 3 ML PEN SQ SCH (08:27)
--- NOTE | 2021-02-07 08:46 | XRay Report ---
XR chest 2V PA/lateral CLINICAL HISTORY: Chest x-ray status post pacemaker placement COMPARISON STUDY: 07/30/2020 FINDINGS: There are postsurgical changes of midline sternotomy and aortic valve replacement. There is evidence for left subclavian pacemaker exchange. There is no pneumothorax. There is no intraparenchy mal consolidation. There is no failure. There are no pleural effusions. IMPRESSION: No evidence of pneumothorax status post placement of a left subclavian central venous pac emaker ACT 112: Negative or not required by law. Electronically signed by: Jayy Mckeon M.D. 02/07/2021 8:45 AM
[2021-02-07] MEDS ORDERED: METOPROLOL SUCC 50MG EXT REL TAB PO SCH (09:00)
[2021-02-07] MEDS ORDERED: FINASTERIDE 5 MG TAB PO SCH (09:00)
[2021-02-07] MEDS ORDERED: DONEPEZIL HCL 10 MG TAB PO SCH (09:00)
[2021-02-07] MEDS ORDERED: MELOXICAM 7.5 MG TAB PO SCH (09:00)
[2021-02-07] MEDS ORDERED: LINACLOTIDE 145 MCG CAPSULE PO SCH (09:00)
[2021-02-07] MEDS ORDERED: ISOSORBIDE MONO EXTENDED REL 30 MG TABCR PO SCH (09:00)
[2021-02-07] MEDS ORDERED: CLOPIDOGREL BISULFATE 75 MG TAB PO SCH (09:00)
[2021-02-07] MEDS ORDERED: DULoxetine HCL 60 MG CAP PO SCH (09:00)
[2021-02-07] MEDS ORDERED: UMECLIDINIUM BROMIDE 62.5MCG/BLISTER 7 PUFFS/INHALER INH SCH (09:00)
[2021-02-07] MEDS ORDERED: FLUTICASONE/VILANTEROL 200/25MCG 14 PUFFS/INHALER INH SCH (09:00)
[2021-02-07] MEDS ORDERED: ASPIRIN 81 MG ECTAB PO SCH (09:00)
--- NOTE | 2021-02-07 12:23 | Electrocardiogram Report ---
Test Reason : Blood Pressure : / mmHG Vent. Rate : 081 BPM Atrial Rate : 081 BPM P-R Int : 114 ms QRS Dur : 162 ms QT Int : 464 ms P-R-T Axes : 096 245 -44 degrees QTc Int : 539 ms Atrial-sensed ventricular-paced rhythm Abnormal ECG When compared with ECG of 01-AUG-2020 12:23, Vent. rate has increased BY 10 BPM Confirmed by Judd Hood ([id number]) on 02/07/2021 12:22:48 PM Referred By: Sammy Choi Confirmed By:Judd Hood
== END 2021-02-07 11:00 | disposition home or self-care (01) ==
LOC: 2S 11:58 → EP 11:58

== ENCOUNTER 2024-03-21 21:06 | Inpatient (IN) ==
[2024-03-21] MEDS ORDERED: VANCOMYCIN CONSULT ACTIVE PRN (21:32)
--- NOTE | 2024-03-21 21:44 | Emergency Department Note ---
Impression & Plan Cellulitis of leg, right, Anemia, Acute alteration in mental status ED Provider Note NAME: PAXTON CHI AGE: 78 SEX: M : 1945 ARRIVES VIA: Walk-In INFORMANT: Patient, the patient's significant other ED PROVIDER(S): Donato Kerns DO CHIEF COMPLAINT: Altered mental status HPI: The patient is a 78-year-old male who presented to the emergency department for an evaluation of altered mental status. The patient was seen by his family doctor recently. He had pain in his heel. He was having drainage. Supposedly at his family doctor's office a piece of glass was removed. The patient was doing well but over the last 24 hours he has been more lethargic and confused. He is also had pain in his right foot with redness and streaking going up the right leg. He denied any fever. He is at episodes of vomiting. The patient denies having any recent trauma. ROS: See above HPI for pertinent positives & negatives. A total of 10 systems reviewed and were otherwise negative. PAST MEDICAL HISTORY: See Below PAST SURGICAL HISTORY: See Below FAMILY HISTORY: See Below SOCIAL HISTORY: See Below HOME MEDICATIONS: See Below ALLERGIES: See Below VITALS: See Below PHYSICAL EXAMINATION: GENERAL: The patient is awake and answers questions appropriately. He does not appear to be uncomfortable. EYES: The conjunctivae are clear. The pupils are round and reactive. EARS, NOSE, MOUTH AND THROAT: The nose is without any evidence of any deformity. NECK: The neck is nontender and supple. RESPIRATORY: Normal respiratory effort is noted there is no evidence of wheezing rhonchi or rales CARDIOVASCULAR: Regular rate and rhythm noted there no murmurs rubs or gallops normal S1 normal S2. GASTROINTESTINAL: The abdomen is soft. Abdomen is nontender. MUSCULOSKELETAL/EXTREMITIES: There is no evidence of gross deformity full range of motion is noted in the hips and shoulders. SKIN: There was swelling and erythema noted to the right ankle as well as the right foot. There was a small puncture wound on the right heel. There was purulent drainage noted. NEUROLOGIC: Patient is awake and oriented to person place and time. He recognizes his significant other. Strength was symmetric. MEDICAL DECISION MAKING: The patient is a 78-year-old male who presented to the emergency department with family for an evaluation of altered mental status. The patient had an area on his foot that he become infected. Reportedly there was a foreign body removed by his primary care physician. There is purulent drainage noted. There does appear to be some degree of phlegmon noted on CAT scan. The patient was treated with IV fluids and IV antibiotics in the emergency department. Given his age and comorbidities he was treated with 2 L of normal saline and was reevaluated. His blood pressure seem to respond nicely and he does not appear to have tachycardia or hypotension on my reevaluation. [facility] to evaluate the patient in the emergency department for further management and disposition. I discussed the patient's condition with his family members. Triage Nursing notes reviewed. Prior medical records reviewed Vital Signs: reviewed and remarkable for no significant abnormalities Differential diagnosis: Cellulitis, abscess, MRSA infection, DVT, necrotizing fasciitis, dermatitis, drug eruption, allergic reaction, as well as other pathologies. ER treatment provided: See below Diagnostics interpreted by me: ECG: EKG was obtained in the emergency department. My interpretation is paced rhythm at 77 bpm. Telida beats were noted. This was compared to a tracing from October 21, 2018. There was a change in the V1 forces otherwise no changes were noted. Cardiac Monitoring: An order was placed for continuous cardiac monitoring. The monitor shows a rate of 75 bpm with sinus rhythm. Laboratory studies: As stated above and show below. Imaging studies: See below. Radiographic imaging was reviewed by myself Consultation(s): The case was discussed with Dr. Richmond who is on-call for the [facility]. ED COURSE: Procedures: none Critical Care: I have personally spent greater than 40 minutes of critical care time in the direct management of this patient. This includes bedside care, interpretation of diagnostic studies, and testing, discussion with consultants, patient, and family members, and other required patient management activities. This 40 minutes is in excess of all separately billable procedures. Past Med/Surg History Problem List (Updated 03/21/24 @ 23:32 by Mary Beth Goldstein MD) Cellulitis Acute alteration in mental status (Acute) Anemia (Acute) Cellulitis of leg, right (Acute) BPH w urinary obs/LUTS Ankle edema Foreign body of right heel Anemia Neuropathic pain Peripheral arterial disease Lumbosacral radiculopathy at S1 Right foot pain Encounter for pre-operative examination Olecranon bursitis, right elbow resolved Nausea & vomiting resolved Lightheadedness resolved Colon cancer screening Medicare annual wellness visit, subsequent Olecranon bursitis, left elbow resolved Hyperkalemia Chronic low back pain Proteinuria Nocturnal enuresis Biventricular cardiac pacemaker in situ Chronic anemia Syncope and collapse happened once in 2020 Dementia Dyspnea on exertion CAD, multiple vessel Squamous cell skin cancer Diabetes mellitus type 2, controlled (Acute) Generalized anxiety disorder (Acute) History of TIA (transient ischemic attack) (Acute) Benign essential hypertension (Acute) PTSD (post-traumatic stress disorder) (Acute) Pulmonary embolism (Acute) S/P aortic valve replacement with bioprosthetic valve (Acute) S/P laparoscopic cholecystectomy (Acute) Depression BPH (benign prostatic hyperplasia) CKD (chronic kidney disease) (Acute) unsure of stage Hyperproteinemia Orthostatic hypotension Changing skin lesion removed from hand Scattered rhonchi of right lung Chronic low back pain Chronic anemia Diarrhea ongoing Folate deficiency Vitamin B 12 deficiency Nonallergic rhinitis Allergic rhinitis Cervicalgia Paraproteinemia 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 Stage 3b chronic kidney disease Cardiomyopathy COPD (chronic obstructive pulmonary disease) Myelodysplastic syndrome (Acute) Asthma with COPD (Acute) daily inh and prn inhaler S/P coronary artery stent placement ~2001, SOB w/chest tightness, [facility], x2 stents; 2002, SOB w/chest tightness, [place], x2; 2003, SOB w/chest tightness, [place], x1 stent; 2004, SOB w/chest tightness, [place], x1 stent; 2009, SOB w/chest tightness, [place], x2 stents; 2011, SOB w/chest tightness, [facility] [place], x1 stent; 2013, SOB w/chest tightness, x2 stents, [place]; 2016, SOB w/chest tightness, [place], x1 stent; 2018, SOB w/chest tightness, x2 stents; 2019, SOB w/chest tightness, [facility], x4 stents; f/u dr. segura Aneurysm of ascending aorta (Acute) monitoring currently; f/u dr. segura, [facility] [place] Carotid artery stenosis (Acute) Hyperlipidemia (Acute) Pacemaker 2011, Placed after AVR due to complete heart block, [facility] [place]; [employer] Medical History Hx-TIA (transient ischemic attack) 2019, slurred speech and confusion, brought to [facility]>no residual symtoms History of COVID-19 2019, tested thru PCP, not hosp; mild symptoms-diarrhea, cold symptoms>resolved Chronic bronchitis Leukocytosis CARTER (dyspnea on exertion) chronic Bicuspid aortic valve replaced with bioprosthetic valve Dementia BPH (benign prostatic hyperplasia) HTN (hypertension), benign CAD (coronary artery disease) Myocardial infarction 2011, SOB w/chest tightness and pain into shoulder and jaw, [facility], had cardiac cath w/2 stents Surgical History History of back surgery 05/10/2020 Grade 2 view with Mac 3 blade History of tonsillectomy History of repair of rotator cuff right S/P right knee surgery H/O endoscopic retrograde cholangiopancreatography History of colonoscopy Hx of cholecystectomy H/O cardiac catheterization ~2001, SOB w/chest tightness, [facility], x2 stents; 2002, SOB w/chest tightness, [place], x2; 2003, SOB w/chest tightness, [place], x1 stent; 2004, SOB w/chest tightness, [place], x1 stent; 2009, SOB w/chest tightness, [place], x2 stents; 2011, SOB w/chest tightness, [facility], x1 stent; 2013, SOB w/chest tightness, x2 stents, [place]; 2015, SOB w/chest tightness, [place], x1 stent; 2017, SOB w/chest tightness, x2 stents; 2019, SOB w/chest tightness, [facility], x4 stents; f/u S/P aortic valve replacement 2011, [facility]; f/u dr. segura Family History Sister Anxiety Brother Alcohol abuse Father Cardiac disorder Myocardial infarction Mother Depression Kidney disease Lung disease Stroke Other Family history non-contributory Denies family history of Ovarian cancer Prostate cancer Breast cancer Colorectal cancer Social History Smoking Status: Current every day smoker Tobacco Type: Cigarettes Age Quit Using Tobacco: 64; Cigarettes Per Day: Random cigarette usage; Second Hand Exposure: Yes (hx); Do You Dip or Chew Tobacco: No; Hx Alcohol Use: Yes Alcohol type: hard liquor Hx Substance Use: No Preferred Language: Hungarian Communication Ability: Effective Visual Impairment: Limited Hearing Ability: Use of Hearing Aid Pot Filler Required: No Beliefs That Will Affect Care: None marital status: Current Living Situation: Spouse Current Living Situation Comment: House Feels Safe at Home: Yes Childhood Exposure to Second-Hand Smoke: Yes Seatbelt Use: always Sunscreen Use: Yes Assistive Devices: Denture - Upper, Glasses and Hearing Aid - Bilateral Allergies Allergies Allergy/AdvReac Type Severity Reaction Status Date / Time bee venom protein (honey bee) Allergy Severe SWELLING Verified 02/18/24 08:51 Sulfa (Sulfonamide Allergy Intermediate "SULFA": Verified 02/18/24 08:51 Antibiotics) RASH Penicillins Allergy Unknown UNKNOWN Verified 02/18/24 08:51 lisinopril Allergy unknown Verified 02/18/24 08:51 reaction codeine AdvReac Intermediate HALLUCINATI Verified 02/18/24 08:51 NG meloxicam AdvReac renal Verified 02/18/24 08:51 failure Home Meds Home Medications Medication Instructions Recorded Confirmed epinephrine 0.3 mg/0.3 mL 0.3 mg IM Q3H PRN Allergy Symptoms 10/21/18 03/21/24 injection, auto-injector (EpiPen) finasteride 5 mg tablet 5 mg PO QAM 10/21/18 03/21/24 atorvastatin 40 mg tablet (Lipitor) 40 mg PO HS 10/22/18 03/21/24 donepezil 10 mg tablet 10 mg PO QAM 10/22/18 03/21/24 duloxetine 60 mg capsule,delayed 60 mg PO QAM 10/22/18 03/21/24 release lamotrigine 200 mg tablet 200 mg PO HS 10/22/18 03/21/24 aspirin 81 mg tablet,delayed 40.5 mg PO QAM 04/03/19 03/21/24 release acetaminophen 500 mg tablet 1,000 mg PO TID PRN Pain 03/18/20 03/21/24 (Tylenol Extra Strength) buspirone 30 mg tablet 30 mg PO TID 07/21/20 03/21/24 clopidogrel 75 mg tablet 75 mg PO QDD 08/16/23 03/21/24 mupirocin 2 % topical ointment 1 applic topical BID PRN Skin 08/16/23 03/21/24 Irritation gabapentin 300 mg capsule 600 mg PO TID 01/25/24 03/21/24 albuterol sulfate 90 mcg/actuation 2 puff inhalation Q4 PRN Shortness 03/21/24 03/21/24 aerosol inhaler Of Breath Or Wheezing alfuzosin 10 mg tablet,extended 10 mg PO HS 03/21/24 03/21/24 release 24 hr budesonide 160 mcg-glycopyr 9 2 inh inhalation QAM 03/21/24 03/21/24 mcg-formot 4.8 mcg/actuation HFA inhaler (Breztri Aerosphere) carvedilol 3.125 mg tablet 3.125 mg PO AMHS 03/21/24 03/21/24 duloxetine 30 mg capsule,delayed 30 mg PO QPM 03/21/24 03/21/24 release Previous Rx's Medication Instructions Recorded nitroglycerin 0.4 mg sublingual 0.4 mg sublingual Q5M PRN Chest 08/21/20 tablet (Nitrostat) Pain #30 tabs memantine 5 mg tablet 5 mg PO BID #180 tabs 11/05/21 cetirizine 10 mg tablet 10 mg PO DAILY PRN allergy 11/18/21 symptoms #30 tabs ondansetron HCl 8 mg tablet 8 mg PO Q12H PRN nausea and 01/12/22 vomiting #20 tabs hydrocortisone 2.5 % topical 1 applic topical HS PRN Itching 03/12/22 ointment #28.35 grams diclofenac sodium 1 % topical gel 2 g topical QID PRN foot pin #300 09/17/23 grams insulin glargine 100 unit/mL (3 See Rx Instructions subcut BID #15 01/07/24 mL) subcutaneous pen (Lantus mL Solostar U-100 Insulin) glimepiride 1 mg tablet See Rx Instructions PO BID #270 02/28/24 tabs Results & Data (ED) Vital Signs Vital Signs - 24 hr 03/21/24 21:11 03/21/24 21:22 03/21/24 21:41 Temperature 36.9 C Temperature Source Temporal Artery Scan Pulse Rate 72 77 Respiratory Rate 101 H 20 Respiratory Depth Normal Blood Pressure 114/71 99/61 L Blood Pressure Mean 85 70 Blood Pressure Position Sitting Pulse Oximetry 91 96 Oxygen Delivery Method Room Air Sepsis Recent Fever Within 48 Hours No Sepsis New/Unexplained Change in Mental Status Yes Sepsis Action Taken by Nursing No Action Required 03/21/24 21:47 03/21/24 22:06 03/21/24 22:06 Temperature Temperature Source Pulse Rate 79 79 Respiratory Rate 20 20 Respiratory Depth Blood Pressure 127/86 127/86 Blood Pressure Mean 93 93 Blood Pressure Position Pulse Oximetry 96 96 94 Oxygen Delivery Method Room Air Sepsis Recent Fever Within 48 Hours Sepsis New/Unexplained Change in Mental Status Sepsis Action Taken by Nursing 03/21/24 23:00 Temperature Temperature Source Pulse Rate 75 Respiratory Rate 22 Respiratory Depth Blood Pressure 141/77 H Blood Pressure Mean 95 Blood Pressure Position Pulse Oximetry 96 Oxygen Delivery Method Sepsis Recent Fever Within 48 Hours Sepsis New/Unexplained Change in Mental Status Sepsis Action Taken by [facility] Medications Current Medication List: was personally reviewed by me Laboratory Data Attestation: I reviewed the patient's lab results. 03/21/24 21:35 03/21/24 21:35 Lab Results 03/21/24 03/21/24 Range/Units 21:35 21:44 WBC 29.68 H (4.8-10.8) K/ul RBC 2.96 L (4.70-6.10) M/uL Hgb 9.2 L (14.0-18.0) g/dl POC Hgb 10.5 L (14.0-18.0) g/dl Hct 27.4 L (42.0-52.0) % POC Hct 31 L (42-52) % MCV 92.6 (80.0-100.0) fL MCH 31.1 (25.0-34.0) pg MCHC 33.6 (32.0-36.0) g/dL RDW Std Deviation 71.3 H (36.4-46.3) fL RDW Coeff of Linda 21.0 H (11.5-14.5) % Plt Count 375 (130-400) K/uL MPV 10.9 (9.4-12.4) fL Immature Gran % (Auto) 0.5 % Neut % (Auto) 87.8 % Lymph % (Auto) 5.6 % [place] % (Auto) 5.9 % Eos % (Auto) 0.0 % Baso % (Auto) 0.2 % Neut # (Auto) 26.04 H (1.40-6.50) K/uL Lymph # (Auto) 1.67 (1.20-3.40) K/uL [place] # (Auto) 1.74 H (0.11-0.59) K/uL Eos # (Auto) 0.01 (0.00-0.50) K/uL Baso # (Auto) 0.06 (0.00-0.20) K/uL Immature Gran # (Auto) 0.16 (0.01-0.20) K/uL Absolute Nucleated RBC 0.02 (0.00-0.12) K/uL Nucleated RBC % (auto) 0.1 % Anisocytosis Present Target Cells 1+ PT 11.3 (9.0-12.0) Seconds INR 1.0 (0.9-1.1) APTT 29 (21-31) Seconds PTT Ratio 1.1 POC Sodium 134 L (135-144) mmol/L Sodium 133 L (136-145) mmol/L POC Potassium 5.0 (3.3-5.0) mmol/L Potassium 4.9 (3.5-5.1) mmol/L POC Chloride 102 (101-112) mmol/L Chloride 101 (98-107) mmol/L Carbon Dioxide 24 (21-32) mmol/L POC Total CO2 23 L (24-31) mmol/L Anion Gap 8 (3-11) POC Anion Gap 15.0 L (16-25) mmol/L POC BUN 31 H (7-18) mg/dl BUN 33 H (6-23) mg/dl Creatinine 1.33 (0.6-1.4) mg/dl POC Creatinine 1.5 H (0.6-1.3) mg/dl Est Cr Clr Drug Dosing 50.9 ml/min Est GFR ( Amer) 59.3 ml/min Est GFR (Non-Af Amer) 51.2 ml/min BUN/Creatinine Ratio 24.8 H (10-20) Glucose 211 H (70-99(Fasting)) mg/dl POC Glucose (other) 208 H (70-99) mg/dl Lactate 1.2 (0.4-2.0) mmol/L Calcium 9.1 (8.6-10.3) mg/dl POC Ioniz Calcium Aliza 1.14 (1.12-1.32) mmol/l Magnesium 1.7 (1.7-2.4) mg/dl Total Bilirubin 1.2 H (0.2-1.0) mg/dl Direct Bilirubin 0.3 H (0-0.2) mg/dl AST 13 (13-39) U/L ALT 14 (7-52) U/L Alkaline Phosphatase 116 H (34-104) U/L Troponin I High Sens 15.4 (0-20) pg/ml Total Protein 8.0 (6.0-8.3) gm/dl Albumin 4.1 (3.4-5.0) gm/dl Procalcitonin 0.32 (0-0.5) ng/ml Administered Medications Vancomycin HCl 1,750 mg/ (Sodium Chloride) 535 mls @ 200 mls/hr IV NOW ONE Stop: 03/22/24 00:12 Last Admin: 03/21/24 23:03 Dose: 200 mls/hr Documented By: CHANDAN Discontinued Medications Diphtheria/Pertussis/Tetanus Vacc (Diphther/Tetan/Pertus Vaccine (Tdap, Adol/Adult) 0.5ml) 0.5 ml IM .ONCE ONE Stop: 03/21/24 23:04 Last Admin: 03/21/24 23:28 Dose: 0.5 ml Documented By: NALLELY Ceftriaxone Sodium (Rocephin) 2,000 mg in 50 mls @ 100 mls/hr IV NOW STA Stop: 03/21/24 22:01 Last Infusion: 03/21/24 22:38 Dose: Infused Documented By: Admin: 03/21/24 22:08 Dose: 100 mls/hr Documented By: NALLELY Sodium Chloride (Nss) 1,000 mls @ 999 mls/hr IV .Q1H1M ONE Stop: 03/21/24 23:06 Last Infusion: 03/21/24 23:04 Dose: Infused Documented By: Admin: 03/21/24 22:12 Dose: 999 mls/hr Documented By: NALLELY Sodium Chloride (Nss) 1,000 mls @ 999 mls/hr IV .Q1H1M ONE Stop: 03/21/24 23:37 Last Admin: 03/21/24 23:05 Dose: 999 mls/hr Documented By: CHANDAN Sodium Chloride (Nss) 500 mls @ 999 mls/hr IV .Q31M ONE Stop: 03/21/24 23:07 Last Admin: 03/21/24 23:58 Dose: 999 mls/hr Documented By: NALLELY Ioversol (Optiray 320 100ml) 93 ml IV ONCE ONE Stop: 03/21/24 21:54 Last Admin: 03/21/24 21:53 Dose: 93 ml Documented By: AIDA Imaging Data Attestation: I personally reviewed and interpreted this imaging study as follows: My Impression: CT of the head was obtained in the emergency department. My interpretation is no intracranial hemorrhage or mass effect, final report below. 1 view chest x-ray was obtained in the emergency department. My interpretation is no free air or definite filtrate, pacemaker was noted, right hilar fullness was noted, this was compared to a chest x-ray from October 22, 2021. No significant changes were noted, final report pending. Radiologist's Impression: Foot CT 03/21/24 21:30 Exam(s): CT RIGHT FOOT With Contrast IV Amt: 93 ml optiay 320 EXAM: CT Right Lower Extremity With Intravenous Contrast, Foot CLINICAL HISTORY: Reason for exam: abscess. TECHNIQUE: Axial computed tomography images of the right foot with intravenous contrast. CTDI is 19.67 mGy and DLP is 430.7 mGy-cm. Automated exposure control was utilized for the study. A dose lowering technique was utilized adhering to the principles of ALARA. CONTRAST: Patient received 93 ml optiay 320 of IV contrast COMPARISON: No relevant prior studies available. FINDINGS: Bones/joints: Plantar calcaneal spur, can be associated with plantar fasciitis. Mild osteoarthritis throughout the foot. No acute fracture. No dislocation. Soft tissues: Thickening of the plantar fascia. Moderate cellulitis superficial and deep to the fascia involving the mid and hindfoot. More focal fluid measuring 2.5 cm along the plantar calcaneal margin, possible phlegmon. No abscess or fluid collection. No radiopaque foreign body. IMPRESSION: 1. Plantar calcaneal spur, plantar fascial thickening and moderate cellulitis along the plantar margin foot. 2. More focal fluid measuring 2.5 cm along the plantar calcaneal margin, possible phlegmon. 3. No abscess or acute bony abnormality. Electronically signed by: Svetlana Perry M.D. 03/21/24 23:[address] 03/21/24 21:30 Exam(s): CT HEAD Without Contrast EXAM: CT Head Without Intravenous Contrast CLINICAL HISTORY: Reason for exam: AMS. TECHNIQUE: Axial computed tomography images of the head/brain without intravenous contrast. CTDI is 62.25 mGy and DLP is 1100.35 mGy-cm. Automated exposure control was utilized for the study. A dose lowering technique was utilized adhering to the principles of ALARA. COMPARISON: MRI brain 03/24/21. FINDINGS: Brain: No mass effect or acute infarct. No acute hemorrhage. Mild atrophy and chronic white matter disease, stable, given differences in technique. Ventricles: No hydrocephalus or midline shift. Bones/joints: No acute finding. Soft tissues: No scalp hematoma. Visualized Sinuses: Stable mild right sphenoid mucosal thickening, likely chronic sinusitis; otherwise, clear. No fluid levels. Mastoid air cells: No mastoid effusion. IMPRESSION: 1. Stable age-related findings. 2. No acute infarct, bleed, or acute intracranial abnormality. Electronically signed by: Svetlana Perry M.D. 03/21/24 23:22 PM Discharge Plan Visit Data Chief Complaint: Confusion Stated Complaint: RT ANKLE REDNESS/WARM TO TOUCH, CONFUSION, VOMIT ED Provider: Donato Kerns Discharge Problem: Cellulitis of leg, right, Anemia, Acute alteration in mental status Patient Disposition: Being Evaluated by Hospitalist Forms Stand Alone Forms: [facility] Prescriptions Prescriptions: No Action memantine 5 mg tablet 5 mg PO BID Qty: 180 3RF glimepiride 1 mg tablet See Rx Instructions PO BID Qty: 270 3RF Rx Instructions: 2 mg in am and 1 mg in pm orally Before your breakfast and evening meal. nitroglycerin [Nitrostat] 0.4 mg tablet, sublingual 0.4 mg Sublingual Q5M PRN (Reason: Chest Pain) Qty: 30 5RF Rx Instructions: place 1 tab under the tongue every 5 min. for up to 3 doses as needed for chest pain call 911 if pain persists cetirizine 10 mg tablet 10 mg PO DAILY PRN (Reason: allergy symptoms) Qty: 30 0RF ondansetron HCl 8 mg tablet 8 mg PO Q12H PRN (Reason: nausea and vomiting) Qty: 20 2RF gabapentin 300 mg capsule 600 mg PO TID hydrocortisone 2.5 % ointment 1 applic TOPICAL HS PRN (Reason: Itching) Qty: 28.35 11RF Rx Instructions: APPLY TO BOTH EARS diclofenac sodium 1 % gel 2 g topical QID PRN (Reason: foot pin) Qty: 300 3RF insulin glargine [Lantus Solostar U-100 Insulin] 100 unit/mL (3 mL) insulin pen See Rx Instructions SUBCUT BID Qty: 15 0RF Rx Instructions: 18 units in am and 24 units at bedtime acetaminophen [Tylenol Extra Strength] 500 mg Tablet 1,000 mg PO TID PRN (Reason: Pain) buspirone 30 mg Tablet 30 mg PO TID finasteride 5 mg Tablet 5 mg PO QAM epinephrine [EpiPen] 0.3 mg/0.3 mL Auto-Injector 0.3 mg IM Q3H PRN (Reason: Allergy Symptoms) duloxetine 60 mg Capsule,Delayed Release(Dr/Ec) 60 mg PO QAM lamotrigine 200 mg Tablet 200 mg PO HS atorvastatin [Lipitor] 40 mg Tablet 40 mg PO HS donepezil 10 mg Tablet 10 mg PO QAM aspirin 81 mg tablet,delayed release (DR/EC) 40.5 mg PO QAM Rx Instructions: 1/2 TABLET DOSE clopidogrel 75 mg tablet 75 mg PO QDD mupirocin 2 % ointment 1 applic topical BID PRN (Reason: Skin Irritation) alfuzosin 10 mg tablet extended release 24 hr 10 mg PO HS Rx Instructions: at bedtime for prostate symptoms. albuterol sulfate 90 mcg/actuation Hfa Aerosol Inhaler 2 puff INHALATION Q4 PRN (Reason: Shortness Of Breath Or Wheezing) Breztri Aerosphere 160-9-4.8 mcg/actuation HFA aerosol inhaler 2 inh inhalation QAM carvedilol 3.125 mg tablet 3.125 mg PO AMHS Rx Instructions: must administer with a meal/food duloxetine 30 mg capsule,delayed release(DR/EC) 30 mg PO QPM Rx Instructions: with evening meal along with 60 mg in am. Referrals Referrals: Leandro Rodrigues MD [Primary Care Provider] - Discharge Problem: Anemia Qualifiers: Anemia type: unspecified type Qualified Code(s): D64.9 - Anemia, unspecified
[2024-03-21] MEDS: OPTIRAY 320 100ml IV ONE (21:53)
[2024-03-21 21:55] LABS: Hematocrit (blood only) 27.4 % (42.0-52.0); Hemoglobin 9.2 g/dl (14.0-18.0); Mean Corpuscular Hemoglobin 31.1 pg (25.0-34.0); Mean Corpuscular Hgb Conc 33.6 g/dL (32.0-36.0); Mean Corpuscular Volume 92.6 fL (80.0-100.0); Mean Platelet Volume 10.9 fL (9.4-12.4); Nucleated RBC # (auto) 0.02 K/uL (0.00-0.12); Nucleated RBC % (auto) 0.1 %; Platelet Count 375 K/uL (130-400); RDW Standard Deviation 71.3 fL (36.4-46.3); Red Blood Count 2.96 M/uL (4.70-6.10); White Blood Count 29.68 K/ul (4.8-10.8)
[2024-03-21 21:56] LABS: iSTAT Creatinine 1.5 mg/dl (0.6-1.3); iSTAT Hemoglobin 10.5 g/dl (14.0-18.0); iSTAT Ionized Calcium 1.14 mmol/l (1.12-1.32)
[2024-03-21] MEDS: cefTRIAXone SODIUM 2,000 MG/50 ML BAG IV STA (22:08)
[2024-03-21 22:11] LABS: Albumin Level 4.1 gm/dl (3.4-5.0); BUN Creatinine Ratio 24.8 (10-20); Bilirubin Direct 0.3 mg/dl (0-0.2); Bilirubin,Total 1.2 mg/dl (0.2-1.0); Calcium 9.1 mg/dl (8.6-10.3); Creatinine Clr Calc Pharmacy 50.9 ml/min; Est GFR (African American) 59.3 ml/min; Est GFR (Non-African American) 51.2 ml/min; Magnesium 1.7 mg/dl (1.7-2.4); Potassium 4.9 mmol/L (3.5-5.1)
[2024-03-21] MEDS: SODIUM CHLORIDE 0.9% 1,000 ML IV ONE ×2 (22:12→23:05)
[2024-03-21 22:17] LABS: Troponin I High Sensitivity 15.4 pg/ml (0-20)
[2024-03-21 22:24] LABS: Partial Thromboplastin Ratio 1.1; Partial Thromboplastin Time 29 Seconds (21-31); Prothrombin Time 11.3 Seconds (9.0-12.0)
[2024-03-21 22:26] LABS: Anisocytosis Present; Basophils # (auto) 0.06 K/uL (0.00-0.20); Basophils % (auto) 0.2 %; Eosinophils # (auto) 0.01 K/uL (0.00-0.50); Immature Granulocytes # (auto) 0.16 K/uL (0.01-0.20); Immature Granulocytes % (auto) 0.5 %; Lymphocytes # (auto) 1.67 K/uL (1.20-3.40); Lymphocytes % (auto) 5.6 %; Monocytes # (auto) 1.74 K/uL (0.11-0.59); Monocytes % (auto) 5.9 %; Neutrophils # (auto) 26.04 K/uL (1.40-6.50); Neutrophils % (auto) 87.8 %; Target Cells 1+
--- NOTE | 2024-03-21 22:56 | History & Physical Report ---
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 Cellulitis -Cellulitis likely secondary to foreign body right heel -No pressure ulcers noted on exam -Wound culture collected and pending -CT of foot and ankle done but not yet read Depending on results, may consider podiatry consult -Given history of uncontrolled cellulitis will treat with IV cefepime and give MRSA coverage with vancomycin -MRSA nares ordered. If negative may consider discontinuing vancomycin versus waiting for final culture results. -Depending on patient response and blood culture results, may switch patient to oral antibiotic regimen prior to discharge Chronic anemia -Previous hemoglobins ranging between, 9 and 10, therefore current result likely around his baseline -Asymptomatic -Monitoring labs CAD HTN -History of multiple PCI -No recent anginal symptoms and troponins within normal limits -Continue home carvedilol 3.125 mg amhs -Continue home atorvastatin 40 mg, aspirin, and clopidogrel 75 mg DM-2 -Last hemoglobin A1c from 01/07/2024 showing result of 8.6% -Lantus and SSI COPD w/ current tobacco use -No oxygen use at home -States he does still use cigarettes on occasion -Discussed importance of stopping tobacco use given his COPD diagnosis -Patient feels he does not need nicotine patches -Will continue home inhalers BPH w/ LUTS - Continue home medications Dispo: Med/surg Diet: HH, DM-2, low sodium, low potassium VTE ppx: Lovenox Code Status: Full History of Present Illness Chief Complaint: Wound Primary Care Provider: Leandro Rodrigues MD Patient is a 78-year-old male with past medical history of BPH with LUTS, COPD, current tobacco use, CAD, bioprosthetic heart valve, ascending aortic aneurysm, PAD, uncontrolled DM type II, hypertension, and CKD who arrived in the ED due to recent finding of foreign body (glass) on the heel of his right foot. He was seen in his PCPs office yesterday and some glass was removed from the heel of his foot with streaks of pus coming afterwards. At the time patient was not complaining of pain in that foot and did not have any cellulitic changes, therefore he was sent home with Keflex 500 mg twice daily for 10 days. 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 Patient states that due to pain in the right heel, he has been hesitant about walking on the accident but denies any weakness. Patient has not had any fevers, chills, weakness, chest pain, worsening shortness of breath, or any other systemic symptoms. ED Course: given NSS 1 L bolus x2, Ceftriaxone 2 g x1 dose, Vancomycin order placed Labs/Imaging: CBC with leukocytosis of 29.68 with neutrophilic predominance, anemia of 9.2, platelets stable at 375. CMP with mild hyponatremia 133, other electrolytes within reference range, correct creatinine of 1.5 which is around patient's baseline, blood sugar of 211. Lactate 2 Pro-Ricardo MOUTH: Mucous me mbranes moist, no lesions, tongue and gums appear normal. 0.32. Troponin is in normal range at 15.4. Medical History: [Reviewed] Medications: [Reviewed] Surgical History: [Reviewed] Family history: [Reviewed] Allergies: [Reviewed] Social History: [Reviewed] Allergies Allergy/AdvReac Type Severity Reaction Status Date / Time bee venom protein (honey bee) Allergy Severe SWELLING Verified 02/18/24 08:51 Sulfa (Sulfonamide Allergy Intermediate "SULFA": Verified 02/18/24 08:51 Antibiotics) RASH Penicillins Allergy Unknown UNKNOWN Verified 02/18/24 08:51 lisinopril Allergy unknown Verified 02/18/24 08:51 reaction codeine AdvReac Intermediate HALLUCINATI Verified 02/18/24 08:51 NG meloxicam AdvReac renal Verified 02/18/24 08:51 failure Home Medications Medication Instructions Recorded Confirmed Type epinephrine 0.3 mg/0.3 mL 0.3 mg IM Q3H PRN Allergy Symptoms 10/21/18 03/21/24 History injection, auto-injector (EpiPen) finasteride 5 mg tablet 5 mg PO QAM 10/21/18 03/21/24 History atorvastatin 40 mg tablet (Lipitor) 40 mg PO HS 10/22/18 03/21/24 History donepezil 10 mg tablet 10 mg PO QAM 10/22/18 03/21/24 History duloxetine 60 mg capsule,delayed 60 mg PO QAM 10/22/18 03/21/24 History release lamotrigine 200 mg tablet 200 mg PO HS 10/22/18 03/21/24 History aspirin 81 mg tablet,delayed 40.5 mg PO QAM 04/03/19 03/21/24 History release acetaminophen 500 mg tablet 1,000 mg PO TID PRN Pain 03/18/20 03/21/24 History (Tylenol Extra Strength) buspirone 30 mg tablet 30 mg PO TID 07/21/20 03/21/24 History nitroglycerin 0.4 mg sublingual 0.4 mg sublingual Q5M PRN Chest 08/21/20 03/21/24 Rx tablet (Nitrostat) Pain #30 tabs memantine 5 mg tablet 5 mg PO BID #180 tabs 11/05/21 03/21/24 Rx cetirizine 10 mg tablet 10 mg PO DAILY PRN allergy 11/18/21 03/21/24 Rx symptoms #30 tabs ondansetron HCl 8 mg tablet 8 mg PO Q12H PRN nausea and 01/12/22 03/21/24 Rx vomiting #20 tabs hydrocortisone 2.5 % topical 1 applic topical HS PRN Itching 03/12/22 03/21/24 Rx ointment #28.35 grams clopidogrel 75 mg tablet 75 mg PO QDD 08/16/23 03/21/24 History mupirocin 2 % topical ointment 1 applic topical BID PRN Skin 08/16/23 03/21/24 History Irritation diclofenac sodium 1 % topical gel 2 g topical QID PRN foot pin #300 09/17/23 03/21/24 Rx grams insulin glargine 100 unit/mL (3 See Rx Instructions subcut BID #15 01/07/24 03/21/24 Rx mL) subcutaneous pen (Lantus mL Solostar U-100 Insulin) gabapentin 300 mg capsule 600 mg PO TID 01/25/24 03/21/24 History glimepiride 1 mg tablet See Rx Instructions PO BID #270 02/28/24 03/21/24 Rx tabs albuterol sulfate 90 mcg/actuation 2 puff inhalation Q4 PRN Shortness 03/21/24 03/21/24 History aerosol inhaler Of Breath Or Wheezing alfuzosin 10 mg tablet,extended 10 mg PO HS 03/21/24 03/21/24 History release 24 hr budesonide 160 mcg-glycopyr 9 2 inh inhalation QAM 03/21/24 03/21/24 History mcg-formot 4.8 mcg/actuation HFA inhaler (Breztri Aerosphere) carvedilol 3.125 mg tablet 3.125 mg PO AMHS 03/21/24 03/21/24 History duloxetine 30 mg capsule,delayed 30 mg PO QPM 03/21/24 03/21/24 History release Past Med/Surg History Problem List (Updated 03/21/24 @ 23:32 by Mary Beth Goldstein MD) Cellulitis Acute alteration in mental status (Acute) Anemia (Acute) Cellulitis of leg, right (Acute) BPH w urinary obs/LUTS Ankle edema Foreign body of right heel Anemia Neuropathic pain Peripheral arterial disease Lumbosacral radiculopathy at S1 Right foot pain Encounter for pre-operative examination Olecranon bursitis, right elbow resolved Nausea & vomiting resolved Lightheadedness resolved Colon cancer screening Medicare annual wellness visit, subsequent Olecranon bursitis, left elbow resolved Hyperkalemia Chronic low back pain Proteinuria Nocturnal enuresis Biventricular cardiac pacemaker in situ Chronic anemia Syncope and collapse happened once in 2020 Dementia Dyspnea on exertion CAD, multiple vessel Squamous cell skin cancer Diabetes mellitus type 2, controlled (Acute) Generalized anxiety disorder (Acute) History of TIA (transient ischemic attack) (Acute) Benign essential hypertension (Acute) PTSD (post-traumatic stress disorder) (Acute) Pulmonary embolism (Acute) S/P aortic valve replacement with bioprosthetic valve (Acute) S/P laparoscopic cholecystectomy (Acute) Depression BPH (benign prostatic hyperplasia) CKD (chronic kidney disease) (Acute) unsure of stage Hyperproteinemia Orthostatic hypotension Changing skin lesion removed from hand Scattered rhonchi of right lung Chronic low back pain Chronic anemia Diarrhea ongoing Folate deficiency Vitamin B 12 deficiency Nonallergic rhinitis Allergic rhinitis Cervicalgia Paraproteinemia 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 Stage 3b chronic kidney disease Cardiomyopathy COPD (chronic obstructive pulmonary disease) Myelodysplastic syndrome (Acute) Asthma with COPD (Acute) daily inh and prn inhaler S/P coronary artery stent placement ~2001, SOB w/chest tightness, [place], x2 stents; 2002, SOB w/chest tightness, [place], x2; 2003, SOB w/chest tightness, [place], x1 stent; 2004, SOB w/chest tightness, [place], x1 stent; 2009, SOB w/chest tightness, [place], x2 stents; 2011, SOB w/chest tightness, [facility], x1 stent; 2013, SOB w/chest tightness, x2 stents, [place]; 2015, SOB w/chest tightness, [place], x1 stent; 2017, SOB w/chest tightness, x2 stents; 2019, SOB w/chest tightness, [facility], x4 stents; f/u dr. segura Aneurysm of ascending aorta (Acute) monitoring currently; f/u dr. segura, [facility] [place] Carotid artery stenosis (Acute) Hyperlipidemia (Acute) Pacemaker 2011, Placed after AVR due to complete heart block, [facility]; [employer] Medical History Hx-TIA (transient ischemic attack) 2019, slurred speech and confusion, brought to [facility]>no residual symtoms History of COVID-19 2019, tested thru PCP, not hosp; mild symptoms-diarrhea, cold symptoms>resolved Chronic bronchitis Leukocytosis CARTER (dyspnea on exertion) chronic Bicuspid aortic valve replaced with bioprosthetic valve Dementia BPH (benign prostatic hyperplasia) HTN (hypertension), benign CAD (coronary artery disease) Myocardial infarction 2011, SOB w/chest tightness and pain into shoulder and jaw, [facility], had cardiac cath w/2 stents Surgical History History of back surgery 05/10/2020 Grade 2 view with Mac 3 blade History of tonsillectomy History of repair of rotator cuff right S/P right knee surgery H/O endoscopic retrograde cholangiopancreatography History of colonoscopy Hx of cholecystectomy H/O cardiac catheterization ~2001, SOB w/chest tightness, [place], x2 stents; 2002, SOB w/chest tightness, [place], x2; 2003, SOB w/chest tightness, [place], x1 stent; 2004, SOB w/chest tightness, [place], x1 stent; 2009, SOB w/chest tightness, [place], x2 stents; 2011, SOB w/chest tightness, [facility], x1 stent; 2013, SOB w/chest tightness, x2 stents, [place]; 2015, SOB w/chest tightness, [place], x1 stent; 2017, SOB w/chest tightness, x2 stents; 2019, SOB w/chest tightness, [facility], x4 stents; f/u S/P [facility] valve [facility] 2011[facility]; f/u dr. segura Family History Sister Anxiety Brother Alcohol abuse Father Cardiac disorder Myocardial infarction Mother Depression Kidney disease Lung disease Stroke Other Family history non-contributory Denies family history of Ovarian cancer Prostate cancer Breast cancer Colorectal cancer Social History Smoking Status: Current some day smoker Tobacco Type: Cigarettes and Smokeless Tobacco (Dip or Chew) Age Quit Using Tobacco: 64; Cigarettes Per Day: 1-2 A WEEK; Second Hand Exposure: Yes (hx); Do You Dip or Chew Tobacco: Yes; Hx Alcohol Use: No Hx Substance Use: No Preferred Language: Sinhala Communication Ability: Effective Visual Impairment: Limited Hearing Ability: Use of Hearing Aid Blankmaker Required: No Beliefs That Will Affect Care: None marital status: Current Living Situation: Spouse Current Living Situation Comment: House Feels Safe at Home: Yes Safety Concerns: Feels Safe At This Time Childhood Exposure to Second-Hand Smoke: Yes Seatbelt Use: always Sunscreen Use: Yes Assistive Devices: Glasses and Hearing Aid - Bilateral Review of Systems Review of Systems: As per HPI Physical Exam Physical Exam: GENERAL: AAOx3, afebrile, calm, conversive, NAD HEAD: AT and NC EYES: EOM intact, SHANNON CHEST: symmetric chest expansions w/ respirations CARDIO: RRR, no r/m/g PULMONARY: scattered expiratory wheezes and decreased breath sounds, mild rhonchi, normal respiratory effort, no respiratory distress GI: soft, nontender, nondistended EXTREMITIES: no swelling or calf tenderness in b/l LE, skin hyperpigmentation in bilateral distal legs that is nontender, right heel with punctate lesion that w as draining a streak of pus and is non-bleeding, erythema w/ associated tenderness and warmth to touch extending to medial and lateral aspects of ankle as well as posterior heel, no other findings above bilateral maleolus. Results & Data Results & Data Vital Signs (Past 12 Hours) Vital Signs Temp Pulse Resp BP Pulse Ox O2 Del Method 03/21/24 22:06 79 20 127/86 96 03/21/24 21:47 96 Room Air 03/21/24 21:41 77 20 99/61 L 96 03/21/24 21:22 72 03/21/24 21:11 36.9 C 101 H 114/71 91 Room Air Supervising Physician Co-Signing Physician Notes Attending addendum: I have physically seen this patient, have supervised the medical residents activities, and agree with the H&P unless as otherwise noted. Assessment and Plan: Diabetic foot infection/right heel with drainage/history of glass body removal- Patient with heel infection, early signs of tending toward lymphangitis Received vancomycin and ceftriaxone from the ED Continue vancomycin, change ceftriaxone to cefepime CT scan of foot notes plantar calcaneal spur, plantar fascial thickening and moderate cellulitis along the plantar margin of the foot. 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
[2024-03-21] MEDS: VANCOMYCIN HCL 1,750 MG in SODIUM CHLORIDE 0.9% 500 ML IV ONE (23:03)
--- NOTE | 2024-03-21 23:23 | CT Scan Report ---
Exam(s): CT HEAD Without Contrast EXAM: CT Head Without Intravenous Contrast CLINICAL HISTORY: Reason for exam: AMS. TECHNIQUE: Axial computed tomography images of the head/brain without intravenous contrast. CTDI is 62.25 mGy and DLP is 1100.35 mGy-cm. Automated exposure control was utilized for the study. A dose lowering technique was utilized adhering to the principles of ALARA. COMPARISON: MRI brain 03/24/21. FINDINGS: Brain: No mass effect or acute infarct. No acute hemorrhage. Mild atrophy and chronic white matter disease, stable, given differences in technique. Ventricles: No hydrocephalus or midline shift. Bones/joints: No acute finding. Soft tissues: No scalp hematoma. Visualized Sinuses: Stable mild right sphenoid mucosal thickening, likely chronic sinusitis; otherwise, clear. No fluid levels. Mastoid air cells: No mastoid effusion. IMPRESSION: 1. Stable age-related findings. 2. No acute infarct, bleed, or acute intracranial abnormality. Electronically signed by: Svetlana Perry M.D. 03/21/24 23:22 PM
[2024-03-21] MEDS: DIPHTHER/TETAN/PERTUS Vaccine (Tdap, Adol/Adult) 0.5mL IM ONE (23:28)
--- NOTE | 2024-03-21 23:31 | CT Scan Report ---
Exam(s): CT RIGHT FOOT With Contrast IV Amt: 93 ml optiay 320 EXAM: CT Right Lower Extremity With Intravenous Contrast, Foot CLINICAL HISTORY: Reason for exam: abscess. TECHNIQUE: Axial computed tomography images of the right foot with intravenous contrast. CTDI is 19.67 mGy and DLP is 430.7 mGy-cm. Automated exposure control was utilized for the study. A dose lowering technique was utilized adhering to the principles of ALARA. CONTRAST: Patient received 93 ml optiay 320 of IV contrast COMPARISON: No relevant prior studies available. FINDINGS: Bones/joints: Plantar calcaneal spur, can be associated with plantar fasciitis. Mild osteoarthritis throughout the foot. No acute fracture. No dislocation. Soft tissues: Thickening of the plantar fascia. Moderate cellulitis superficial and deep to the fascia involving the mid and hindfoot. More focal fluid measuring 2.5 cm along the plantar calcaneal margin, possible phlegmon. No abscess or fluid collection. No radiopaque foreign body. IMPRESSION: 1. Plantar calcaneal spur, plantar fascial thickening and moderate cellulitis along the plantar margin foot. 2. More focal fluid measuring 2.5 cm along the plantar calcaneal margin, possible phlegmon. 3. No abscess or acute bony abnormality. Electronically signed by: Svetlana Perry M.D. 03/21/24 23:30 PM
[2024-03-21] MEDS: SODIUM CHLORIDE 0.9% 500 ML IV ONE (23:58)
[2024-03-22 00:10] LABS: Appearance Urine Clear (Clear); Bacteria Urine Automated None Seen (None Seen); Bilirubin Urine Negative (Negative); Blood Urine Negative (Negative); Cast Urine Automated 0-2 /lpf (0-2); Color Urine Yellow; Epithelial Cell Urine Auto 0-2 /hpf (0-2); Glucose Urine UA Negative (Negative); Ketones Urine Negative (Negative); Leukocyte Esterase Urine Negative (Negative); Nitrite Urine Negative (Negative); Protein Urine Trace (Negative); RBC Urine Automated 0-2 /hpf (0-2); Specific Gravity Urine 1.031 (1.000-1.030); Urobilinogen Urine Negative (Negative); WBC Urine Automated 0-5 /hpf (0-5)
[2024-03-22] MEDS: MEMANTINE HCL 5 MG TAB PO ONE (00:30)
[2024-03-22] MEDS: TAMSULOSIN HCL 0.4 MG CAP PO ONE (00:30)
[2024-03-22] MEDS: carvediloL 3.125 MG TAB PO ONE (00:30)
[2024-03-22] MEDS: ATORVASTATIN 40 MG TAB PO ONE (00:30)
[2024-03-22] MEDS: lamoTRIgine 100 MG TAB PO ONE (00:31)
[2024-03-22] MEDS ORDERED: CARBOHYDRATES FOR HYPOGLYCEMIA PO PRN (01:39)
[2024-03-22] MEDS ORDERED: ALBUTEROL HFA 8 GM INHALER INH PRN (01:39)
[2024-03-22] MEDS ORDERED: ONDANSETRON INJ 2 MG/ML 2 ML VIAL IV PRN (01:39)
[2024-03-22] MEDS ORDERED: POLYETHYLENE (MIRALAX) 17 GM PACK PO PRN (01:39)
[2024-03-22] MEDS ORDERED: GLUCOSE 40% GEL 15 GM TUBE PO PRN (01:39)
[2024-03-22] MEDS ORDERED: GLUCOSE 10 TAB/TUBE PO PRN (01:39)
[2024-03-22] MEDS ORDERED: GLUCAGON FOR INJ 1 MG VIAL SQ PRN (01:39)
[2024-03-22] MEDS ORDERED: DEXTROSE 50% 50 ML SYRINGE IV PRN (01:39)
--- NOTE | 2024-03-22 03:20 | Billing Data ---
Date of Service March 22, 2024 Coding Level of Care Code 50173 INT INP/OBS CARE
[2024-03-22] MEDS: CEFEPIME 2,000 MG in SYRINGE 0 ML IV SCH (05:06)
[2024-03-22] MEDS: LOPERAMIDE HCL 2 MG CAP PO PRN (06:36)
--- NOTE | 2024-03-22 06:59 | XRay Report ---
XR chest 1V portable CLINICAL HISTORY: Sepsis COMPARISON STUDY: Chest CT June 16, 2023. FINDINGS: A biventricular left subclavian pacer is in place. There are median sternotomy wires. Cardi omediastinal silhouette is stable. There is no pneumothorax or pleural effusion. A 3.1 cm right perih ilar nodular density is noted. This may represent summation artifact. Otherwise, the appearance of th e chest is unchanged. IMPRESSION: 3.1 cm right perihilar nodular density. This may reflect summation artifact. A pulmonary nodule, lymphadenopathy or pneumonia could appear similar. Chest CT is recommended for further evalu ation. This finding will be called/faxed to the ordering provider at time of dictation. ACT 112: Positive. There are findings on this exam that require communication between the performing entity and the patient following Patient Test Result Information Act ([place] Act 112) guidelines. Electronically signed by: Duncan Fonseca M.D. 03/22/2024 6:58 AM
[2024-03-22 07:26] LABS: Basophils # (auto) 0.06 K/uL (0.00-0.20); Basophils % (auto) 0.3 %; Eosinophils # (auto) 0.02 K/uL (0.00-0.50); Eosinophils % (auto) 0.1 %; Hematocrit (blood only) 23.9 % (42.0-52.0); Hemoglobin 7.9 g/dl (14.0-18.0); Immature Granulocytes # (auto) 0.14 K/uL (0.01-0.20); Immature Granulocytes % (auto) 0.6 %; Lymphocytes % (auto) 7.2 %; Mean Corpuscular Hemoglobin 30.9 pg (25.0-34.0); Mean Corpuscular Hgb Conc 33.1 g/dL (32.0-36.0); Mean Corpuscular Volume 93.4 fL (80.0-100.0); Mean Platelet Volume 10.1 fL (9.4-12.4); Monocytes # (auto) 1.89 K/uL (0.11-0.59); Neutrophils # (auto) 19.86 K/uL (1.40-6.50); Neutrophils % (auto) 83.8 %; Platelet Count 302 K/uL (130-400); RDW Coefficient of Variation 21.1 % (11.5-14.5); Red Blood Count 2.56 M/uL (4.70-6.10); White Blood Count 23.67 K/ul (4.8-10.8)
[2024-03-22 07:49] LABS: Albumin Globulin Ratio 1.1 (0.9-2); Albumin Level 3.4 gm/dl (3.4-5.0); BUN Creatinine Ratio 24.3 (10-20); Creatinine Clr Calc Pharmacy 61.1 ml/min; Est GFR (African American) 73.8 ml/min; Est GFR (Non-African American) 63.7 ml/min; Globulin 3.1 gm/dl (2.5-4.0); Potassium 4.4 mmol/L (3.5-5.1); Total Protein 6.5 gm/dl (6.0-8.3)
[2024-03-22] MEDS: ACETAMINOPHEN 500 MG TAB PO PRN (07:49)
[2024-03-22 07:52] LABS: Anisocytosis Present; Poikilocytosis Present
[2024-03-22] MEDS: FLUTICASONE FUROATE 200MCG 14 PUFFS/INHALER INH SCH (08:38)
[2024-03-22] MEDS: DONEPEZIL HCL 10 MG TAB PO SCH (08:38)
[2024-03-22] MEDS: UMECLIDINIUM/VILANTEROL 62.5/25MCG 7 PUFFS/INHALER INH SCH (08:38)
[2024-03-22] MEDS: carvediloL 3.125 MG TAB PO SCH (08:39)
[2024-03-22] MEDS: ENOXAPARIN INJ 40 MG/0.4 ML SYR SQ SCH (08:39)
[2024-03-22] MEDS: GABAPENTIN 600 MG TAB PO SCH (08:39)
[2024-03-22] MEDS: MEMANTINE HCL 5 MG TAB PO SCH (08:39)
[2024-03-22] MEDS: CLOPIDOGREL BISULFATE 75 MG TAB PO SCH (08:39)
[2024-03-22] MEDS: FINASTERIDE 5 MG TAB PO SCH (08:39)
[2024-03-22] MEDS: LANTUS PER UNIT CHARGE SQ SCH (08:44)
[2024-03-22] MEDS: INSULIN ASPART PER UNIT CHARGE SC SCH (08:46)
--- NOTE | 2024-03-22 09:03 | Hospitalist Progress Note ---
Date of Service March 22, 2024 Assessment & Plan (1) Cellulitis: Plan: Presented with right foot cellulitis, likely secondary to foreign body right heel. - Seen by PCP on 03/20/24 where some glass was removed from the heel of his right foot with streaks of pus coming afterwards. No cellulitic changes at that time. Patient sent home with Keflex 500 mg twice daily x 10 days. He did not pharmacy picking technician the prescription. - Presented to ED with cellulitis, nausea and vomiting, and pain in the right heel. - Given Tdap vaccine in ED. - No pressure ulcers noted on exam on admission. - Wound culture and blood culture pending. - CT of foot and ankle revealed moderate cellulitis along the plantar margin, and more focal fluid measuring 2.5 cm along the plantar calcaneal margin, possible phlegmon. No abscess or acute bony abnormality. > Unlikely that this fluid collection will respond to antibiotics alone. - Podiatry consulted, appreciate assistance. > Dr. Albright plans to assess patient 03/22. Could possibly be a bedside procedure, but if not, surgical intervention will be 03/23 at the earliest. If so, make NPO at midnight. - Wound care nurse consulted, appreciate recommendations. > Clean right plantar heel with saline. Cover with Aquacel Ag and secure with Optifoam. Change every day or if Optifoam is covered > 50% with drainage. She was on 1 feet touch the ground. > Follow-up at wound clinic if no signs of healing in 1 week. - Given history of uncontrolled cellulitis, continue IV cefepime and vancomycin. > While MRSA nares screen was negative, this correlates with MRSA coverage for pneumonia, not soft tissue infections. Therefore, will continue vancomycin until final cultures result. (2) CAD, multiple vessel: Plan: PAD/CAD/hypertension - History of multiple PCI - REMINGTON testing from is 0.67 on the right and 0.67 on the left, suggesting moderate arterial occlusive disease - No recent anginal symptoms and troponins within normal limits on admission - CXR on admission revealed 3.1 cm right perihilar nodular density. Chest CT recommended for further evaluation. - Chest CT revealed no change in aneurysmal dilation of the ascending aorta measuring 4.6 cm at the level of main pulmonary artery. No change in appearance of the chest. 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 Adjust regimen as needed. (4) COPD (chronic obstructive pulmonary disease): Plan: States he does still use cigarettes on occasion. 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 - No oxygen use at home - Discussed importance of stopping tobacco use given his COPD diagnosis - Patient feels he does not need nicotine patches - Continue home inhalers Plan Updated at bedside Discussed case with and consulted podiatry Ordered chest CT Reviewed wound care nurse notes Chronic Stable Conditions: Chronic anemia -Previous hemoglobins ranging between, 9 and 10, therefore current result likely around his baseline -Asymptomatic -Monitoring labs BPH w/ LUTS - Continue home medications Hyperlipidemia -Continue atorvastatin VTE ppx: Lovenox CODE STATUS: Full code Admission and Anticipated Discharge Date Admission Date: March 21, 2024 Subjective Patient seen and evaluated at bedside with his . He reports that his right foot pain is well-controlled. He notes that he had a lot of diarrhea last night and this morning (C. diff negative), but this has resolved since taking Imodium. He was seen by the wound care nurse earlier, so his foot was wrapped at the time of my evaluation. We discussed that Dr. Albright from podiatry will be in to evaluate him today, and then we can move forward with a more set game plan. Patient is agreeable. We discussed his current antibiotics, his wound culture/blood culture, and the results of his imaging. Patient denies fever, chills, confusion, chest pain, shortness of breath, abdominal pain, nausea, vomiting, urinary symptoms, lightheadedness, or dizziness. No additional complaints or concerns at this time. Physical Exam Physical Exam: General: No acute distress, nondiaphoretic, well-developed, well-nourished. Skin: No swelling or calf tenderness in bilateral LE, skin hyperpigmentation in bilateral distal legs that is nontender, right heel with punctate lesion covered in dressing at time of evaluation, dressing clean, dry, intact, erythema with associated tenderness (improved) and warmth to touch extending to medial and lateral aspects of ankle as well as posterior heel, no other findings above bilateral maleolus. Cardiac: Regular rate and rhythm without murmurs gallops or rubs. Pulm: Clear to auscultation bilaterally without wheezes, rales or rhonchi. No respiratory distress. 95% on room air. Abdominal: Soft, nontender, nondistended. Bowel sounds present. Neuro: A&O x3. No focal neurological deficits. Results & Data Results & Data Vital Signs (Past 12 Hours) Vital Signs Temp Pulse Pulse Resp BP BP Pulse Ox 03/22/24 07:45 03/22/24 07:29 37.1 C 70 18 111/61 95 03/22/24 01:10 03/22/24 01:10 36.8 C 61 18 164/72 H 95 03/22/24 00:48 84 20 146/63 H 97 03/22/24 00:00 72 20 139/73 96 03/21/24 23:00 75 22 141/77 H 96 03/21/24 22:06 79 20 127/86 94 03/21/24 22:06 79 20 127/86 96 03/21/24 21:47 96 03/21/24 21:41 77 20 99/61 L 96 03/21/24 21:22 72 03/21/24 21:11 36.9 C 101 H 114/71 91 O2 Del Method 03/22/24 07:45 Room Air 03/22/24 07:29 Room Air 03/22/24 01:10 Room Air 03/22/24 01:10 Room Air 03/22/24 00:48 Room Air 03/22/24 00:00 03/21/24 23:00 03/21/24 22:06 03/21/24 22:06 03/21/24 21:47 Room Air 03/21/24 21:41 03/21/24 21:22 03/21/24 21:11 Room Air Laboratory Results Reviewed CBC Reviewed CMP Reviewed UA Reviewed MRSA screen Reviewed CT of toxin Reviewed blood culture and wound culture Diagnostic Findings Chest X-Ray 03/21/24 21:30 XR chest 1V portable CLINICAL HISTORY: Sepsis COMPARISON STUDY: Chest CT June 16, 2023. FINDINGS: A biventricular left subclavian pacer is in place. There are median sternotomy wires. Cardiomediastinal silhouette is stable. There is no pneumothorax or pleural effusion. A 3.1 cm right perihilar nodular density is noted. This may represent summation artifact. Otherwise, the appearance of the chest is unchanged. IMPRESSION: 3.1 cm right perihilar nodular density. This may reflect summation artifact. A pulmonary nodule, lymphadenopathy or pneumonia could appear similar. Chest CT is recommended for further evaluation. This finding will be called/faxed to the ordering provider at time of dictation. ACT 112: Positive. There are findings on this exam that require communication between the performing entity and the patient following Patient Test Result Information Act ([place] Act 112) guidelines. Electronically signed by: Duncan Fonseca M.D. 03/22/2024 6:[address] 03/21/24 21:30 Exam(s): CT RIGHT FOOT With Contrast IV Amt: 93 ml optiay 320 EXAM: CT Right Lower Extremity With Intravenous Contrast, Foot CLINICAL HISTORY: Reason for exam: abscess. TECHNIQUE: Axial computed tomography images of the right foot with intravenous contrast. CTDI is 19.67 mGy and DLP is 430.7 mGy-cm. Automated exposure control was utilized for the study. A dose lowering technique was utilized adhering to the principles of ALARA. CONTRAST: Patient received 93 ml optiay 320 of IV contrast COMPARISON: No relevant prior studies available. FINDINGS: Bones/joints: Plantar calcaneal spur, can be associated with plantar fasciitis. Mild osteoarthritis throughout the foot. No acute fracture. No dislocation. Soft tissues: Thickening of the plantar fascia. Moderate cellulitis superficial and deep to the fascia involving the mid and hindfoot. More focal fluid measuring 2.5 cm along the plantar calcaneal margin, possible phlegmon. No abscess or fluid collection. No radiopaque foreign body. IMPRESSION: 1. Plantar calcaneal spur, plantar fascial thickening and moderate cellulitis along the plantar margin foot. 2. More focal fluid measuring 2.5 cm along the plantar calcaneal margin, possible phlegmon. 3. No abscess or acute bony abnormality. Electronically signed by: Svetlana Perry M.D. 03/21/24 23:[address] 03/21/24 21:30 Exam(s): CT HEAD Without Contrast EXAM: CT Head Without Intravenous Contrast CLINICAL HISTORY: Reason for exam: AMS. TECHNIQUE: Axial computed tomography images of the head/brain without intravenous contrast. CTDI is 62.25 mGy and DLP is 1100.35 mGy-cm. Automated exposure control was utilized for the study. A dose lowering technique was utilized adhering to the principles of ALARA. COMPARISON: MRI brain 03/24/21. FINDINGS: Brain: No mass effect or acute infarct. No acute hemorrhage. Mild atrophy and chronic white matter disease, stable, given differences in technique. Ventricles: No hydrocephalus or midline shift. Bones/joints: No acute finding. Soft tissues: No scalp hematoma. Visualized Sinuses: Stable mild right sphenoid mucosal thickening, likely chronic sinusitis; otherwise, clear. No fluid levels. Mastoid air cells: No mastoid effusion. IMPRESSION: 1. Stable age-related findings. 2. No acute infarct, bleed, or acute intracranial abnormality. Electronically signed by: Svetlana Perry M.D. 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
--- NOTE | 2024-03-22 09:11 | Electrocardiogram Report ---
Test Reason : Blood Pressure : */* mmHG Vent. Rate : 77 BPM Atrial Rate : 87 BPM P-R Int : 128 ms QRS Dur : 128 ms QT Int : 396 ms P-R-T Axes : 55 247 71 degrees QTcB Int : 448 ms AV sequential or dual chamber electronic pacemaker Right bundle branch block Inferior infarct , age undetermined Anterolateral infarct , age undetermined Abnormal ECG When compared with ECG of 06-Feb-2021 16:19, No significant change Confirmed by Donato Echeverria ([id number]) on 03/22/2024 9:11:29 AM Referred By: Confirmed By: Donato Echeverria
--- NOTE | 2024-03-22 09:18 | Pharmacy Report ---
Pharmacy PK ABX Note - Date of Service March 22, 2024 - Assessment and Plan Assessment 78 year old M started on vancomycin and cefepime for potential cellulitis of right foot, secondary to foreign body (glass). Was seen by PCP 03/20 and some of the glass was removed. Had been sent home on keflex, however did not bulk picker prescription. Presenting to ED with N/V and pain in right heel. CT of foot suggestive of cellulites. Cultures pending. Plan Vancomycin * Loading dose: 1750 mg IV x 1 * Maintenance dose: 1500 mg IV every 24 hours * Regimen is predicted to achieve target AUC/JOSUE of 400-600 mg/L.hr * Random level to be ordered if plan is to continue >48 hours Pharmacy will continue to follow and will adjust dose/frequency as necessary. Thank you. Pharmacy has transitioned to AUC monitoring for vancomycin. AUC/JOSUE is the preferred PK/PD target and is associated with decreased risk of nephrotoxicity compared to traditional trough targets.
[2024-03-22] MEDS: LOPERAMIDE HCL 2 MG CAP PO STA (09:53)
--- NOTE | 2024-03-22 12:36 | CT Scan Report ---
CT chest diagnostic wo con CT DOSE: 652.76 mGy.cm HISTORY: Abnormal chest x-ray. Follow-up. Recommended for further eval based on CXR findings TECHNIQUE: Multiaxial CT images of the chest were performed without contrast. A dose lowering techni que was utilized adhering to the principles of ALARA. COMPARISON: Chest CT 06/16/2023. FINDINGS: A left biventricular pacer/AICD is in place. There is a prosthetic aortic valve. Dilatation of the ascending aorta, measuring 4.6 cm at the level of the main pulmonary artery is unchanged. No intramural hematoma is identified. Mild cardiomegaly is noted. There is no pericardial effusion. Ther e is no thoracic lymphadenopathy. Several partially calcified thoracic lymph nodes are present. There is mild paraseptal emphysema. No pneumothorax or pleural effusion is noted. There are no suspicious pulmonary nodules. Calcific granuloma within the left lower lobe again noted. The appearance of the c hest is unchanged. Lower lobe bronchial wall thickening is again noted. Interstitial thickening with in the right lower lobe posteriorly persists. This is likely chronic. IMPRESSION: 1. No change in the aneurysmal dilatation of the ascending aorta measuring 4.6 cm at the level of the main pulmonary artery. 2. No change in appearance of the chest. ACT 112: Negative or not required by law. Electronically signed by: Aldo Brooks M.D. 03/22/2024 12:34 PM
[2024-03-22] MEDS: VANCOMYCIN HCL 1,500 MG in SODIUM CHLORIDE 0.9% 500 ML IV SCH (13:51)
[2024-03-22 15:28] VITALS: O2SAT 94
[2024-03-22] MEDS: lamoTRIgine 100 MG TAB PO SCH (20:34)
[2024-03-22] MEDS: ATORVASTATIN 40 MG TAB PO SCH (20:35)
[2024-03-22] MEDS: TIMOLOL MALEATE 0.5% OP SOLN 5 ML BTL OP SCH (20:35)
[2024-03-22] MEDS: TAMSULOSIN HCL 0.4 MG CAP PO SCH (20:36)
[2024-03-22] MEDS: LINACLOTIDE 145 MCG CAPSULE PO SCH (20:36)
--- NOTE | 2024-03-22 21:30 | Podiatry Consultation ---
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 Bedside I&D performed uneventfully utilizing aseptic technique. 4-5 cc purulent drainage expressed/drained with swab culture obtained from this deeper purulence. Without any evidence of foreign body or bone involvement, no surgical intervention is planned. Would benefit from continued wound care; wound redressed today with Aquacel Ag and optifoam bandage. Would likely d/c home with mupirocin topical ointment and 2 weeks of oral empiric antibiotics, likely Ancef given his allergies. Can d/c home on this oral/topical antibiotic plan, as long as he is stable otherwise. 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 Thank you for the consult; we're happy to help whenever possible. History of Present Illness Reason for Consultation: Right heel foreign body/puncture wound/abscess Attending Physician: Lam Carter MD History of Present Illness Patient seen at bedside. States he presented to the ED with worsening right lower extremity cellulitis after his PCP was able to remove a foreign body in his office. He felt good after the glass was removed from his foot, but then developed these worsening symptoms of severe pain, redness, and swelling over the next several days. With this, he sought further treatment and was admitted for antibiotics and imaging. Now, tonight, he was feeling better with decreased pain to the heel after some wound care and IV antibiotics. He currently feels better without N/V/F/C/SOB. Allergies Allergy/AdvReac Type Severity Reaction Status Date / Time bee venom protein (honey bee) Allergy Severe SWELLING Verified 02/18/24 08:51 Sulfa (Sulfonamide Allergy Intermediate "SULFA": Verified 02/18/24 08:51 Antibiotics) RASH Penicillins Allergy Unknown UNKNOWN Verified 02/18/24 08:51 lisinopril Allergy unknown Verified 02/18/24 08:51 reaction codeine AdvReac Intermediate HALLUCINATI Verified 02/18/24 08:51 NG meloxicam AdvReac renal Verified 02/18/24 08:51 failure Home Medications Medication Instructions Recorded Confirmed Type epinephrine 0.3 mg/0.3 mL 0.3 mg IM Q3H PRN Allergy Symptoms 10/21/18 03/21/24 History injection, auto-injector (EpiPen) finasteride 5 mg tablet 5 mg PO QAM 10/21/18 03/21/24 History atorvastatin 40 mg tablet (Lipitor) 40 mg PO HS 10/22/18 03/21/24 History donepezil 10 mg tablet 10 mg PO QAM 10/22/18 03/21/24 History duloxetine 60 mg capsule,delayed 60 mg PO QAM 10/22/18 03/21/24 History release lamotrigine 200 mg tablet 200 mg PO HS 10/22/18 03/21/24 History aspirin 81 mg tablet,delayed 40.5 mg PO QAM 04/03/19 03/21/24 History release acetaminophen 500 mg tablet 1,000 mg PO TID PRN Pain 03/18/20 03/21/24 History (Tylenol Extra Strength) buspirone 30 mg tablet 30 mg PO TID 07/21/20 03/21/24 History nitroglycerin 0.4 mg sublingual 0.4 mg sublingual Q5M PRN Chest 08/21/20 03/21/24 Rx tablet (Nitrostat) Pain #30 tabs memantine 5 mg tablet 5 mg PO BID #180 tabs 11/05/21 03/21/24 Rx cetirizine 10 mg tablet 10 mg PO DAILY PRN allergy 11/18/21 03/21/24 Rx symptoms #30 tabs ondansetron HCl 8 mg tablet 8 mg PO Q12H PRN nausea and 01/12/22 03/21/24 Rx vomiting #20 tabs hydrocortisone 2.5 % topical 1 applic topical HS PRN Itching 03/12/22 03/21/24 Rx ointment #28.35 grams clopidogrel 75 mg tablet 75 mg PO QDD 08/16/23 03/21/24 History mupirocin 2 % topical ointment 1 applic topical BID PRN Skin 08/16/23 03/21/24 History Irritation diclofenac sodium 1 % topical gel 2 g topical QID PRN foot pin #300 09/17/23 03/21/24 Rx grams insulin glargine 100 unit/mL (3 See Rx Instructions subcut BID #15 01/07/24 03/21/24 Rx mL) subcutaneous pen (Lantus mL Solostar U-100 Insulin) gabapentin 300 mg capsule 600 mg PO TID 01/25/24 03/21/24 History glimepiride 1 mg tablet See Rx Instructions PO BID #270 02/28/24 03/21/24 Rx tabs albuterol sulfate 90 mcg/actuation 2 puff inhalation Q4 PRN Shortness 03/21/24 03/21/24 History aerosol inhaler Of Breath Or Wheezing alfuzosin 10 mg tablet,extended 10 mg PO HS 03/21/24 03/21/24 History release 24 hr budesonide 160 mcg-glycopyr 9 2 inh inhalation QAM 03/21/24 03/21/24 History mcg-formot 4.8 mcg/actuation HFA inhaler (Breztri Aerosphere) carvedilol 3.125 mg tablet 3.125 mg PO AMHS 03/21/24 03/21/24 History duloxetine 30 mg capsule,delayed 30 mg PO QPM 03/21/24 03/21/24 History release timolol maleate 03/22/24 History Patient History Medical History Hx-TIA (transient ischemic attack) 2018, slurred speech and confusion, brought to [facility]>no residual symtoms History of COVID-19 2019, tested thru PCP, not hosp; mild symptoms-diarrhea, cold symptoms>resolved Chronic bronchitis Leukocytosis CARTER (dyspnea on exertion) chronic Bicuspid aortic valve replaced with bioprosthetic valve Dementia BPH (benign prostatic hyperplasia) HTN (hypertension), benign CAD (coronary artery disease) Myocardial infarction 2011, SOB w/chest tightness and pain into shoulder and jaw, phan general , had cardiac cath w/2 stents Surgical History History of back surgery 05/10/2020 Grade 2 view with Mac 3 blade History of tonsillectomy History of repair of rotator cuff right S/P right knee surgery H/O endoscopic retrograde cholangiopancreatography History of colonoscopy Hx of cholecystectomy H/O cardiac catheterization ~2001, SOB w/chest tightness, [facility], x2 stents; 2002, SOB w/chest tightness, [place], x2; 2003, SOB w/chest tightness, [place], x1 stent; 2004, SOB w/chest tightness, [place], x1 stent; 2009, SOB w/chest tightness, [place], x2 stents; 2011, [facility]; 2013, SOB w/chest tightness, x2 stents, [place]; 2015, SOB w/chest tightness, [place], x1 stent; 2017, SOB w/chest tightness, x2 stents; 2019, SOB w/chest tightness, [facility], x4 stents; f/u S/P [facility]; f/u dr. segura Family History Sister Anxiety Brother Alcohol abuse Father Cardiac disorder Myocardial infarction Mother Depression Kidney disease Lung disease Stroke Other Family history non-contributory Denies family history of Ovarian cancer Prostate cancer Breast cancer Colorectal cancer Social History Smoking Status: Current some day smoker Tobacco Type: Cigarettes and Smokeless Tobacco (Dip or Chew) Age Quit Using Tobacco: 64; Cigarettes Per Day: 1-2 A WEEK; Second Hand Exposure: Yes (hx); Do You Dip or Chew Tobacco: Yes; Hx Alcohol Use: No Hx Substance Use: No Preferred Language: Chinese Communication Ability: Effective Visual Impairment: Limited Hearing Ability: Use of Hearing Aid Automatic Profile Sander Operator Required: No Beliefs That Will Affect Care: None marital status: Current Living Situation: Spouse Current Living Situation Comment: House Feels Safe at Home: Yes Safety Concerns: Feels Safe At This Time Childhood Exposure to Second-Hand Smoke: Yes Seatbelt Use: always Sunscreen Use: Yes Assistive Devices: Glasses and Hearing Aid - Bilateral Review of Systems Review of Systems: All systems reviewed & are unremarkable except as noted in HPI & below Constitutional: no fever, no chills and no fatigue Eyes: no problem reported Ear, Nose, Mouth, Throat: no problem reported Respiratory: no problem reported Cardiovascular: + edema; no problem reported Gastrointestinal: no nausea, no vomiting and no problem reported Musculoskeletal: no problem reported Integumentary: + skin ulcer, + wounds and + erythema Neurologic: + loss of sensation, + numbness and + pa resthesia; no generalized weakness Psychiatric: no problem reported Physical Exam Physical Exam: RLE Focused exam: DP/PT pulses diminished. CFT brisk to the digits. Edema and erythema noted to the lower extremity. Well circumscribed puncture wound to the right plantar heel. It was scabbed over with superficial eschar, though after debridement with a 15 blade, it was immediately drainable. 4-5cc of white purulent drainage was able to be expressed with manual pressure. The wound measured only 0.3x0.2cm but probed 0.6cm to deep fascia. No palpable bone noted. No remaining purulence after bedside I&D noted. No ascending cellulitis appreciated. Pain improved after debridement. Constitutional: WD/WN, vitals as above + ill appearing and + obese Eyes: PERRL, conjunctivae normal, anicteric sclerae ENMT: external ear and nose normal, oropharynx normal Neck: trachea midline, no thyromegaly normal visual inspection Respiratory: normal respiratory effort; no respiratory distress Cardiovascular: Rate/Rhythm: regular rate and regular rhythm Chest (Breasts): Chest: normal inspection of chest Gastrointestinal (Abdomen): Inspection/Auscultation: abdomen normal to inspection Percussion/Palpation: + abdomen tender and abdomen soft Musculoskeletal: no cyanosis or clubbing, extremities motor strength 5/5 Head/Neck/Chest: normocephalic and head atraumatic Extremities: extremities normal to inspection Skin: + ulcer, + wound and + erythema Neurologic: awake; no focal motor deficits Psychiatric: A+Ox3, euthymic affect Results & Data Vital Signs (Past 12 Hours) Vital Signs Temp Pulse Resp BP Pulse Ox O2 Del Method O2 Flow Rate 03/22/24 15:28 94 Nasal Cannula 2 03/22/24 15:01 36.6 C 77 18 112/64 91 Room Air Diagnostic Findings CT Scan reviewed of the right foot. Abscess noted to the plantar left heel with puncture wound noted. No retained foreign body noted. No bony extension noted. Abscess well circumscribed with no evidence of ascending cellulitis.
[2024-03-22 21:40] VITALS: TEMP 98.4
[2024-03-23 06:28] LABS: Basophils # (auto) 0.05 K/uL (0.00-0.20); Basophils % (auto) 0.3 %; Eosinophils # (auto) 0.09 K/uL (0.00-0.50); Eosinophils % (auto) 0.5 %; Hematocrit (blood only) 23.4 % (42.0-52.0); Hemoglobin 7.6 g/dl (14.0-18.0); Immature Granulocytes # (auto) 0.12 K/uL (0.01-0.20); Immature Granulocytes % (auto) 0.6 %; Lymphocytes # (auto) 1.35 K/uL (1.20-3.40); Lymphocytes % (auto) 7.2 %; Mean Corpuscular Hemoglobin 31.1 pg (25.0-34.0); Mean Corpuscular Hgb Conc 32.5 g/dL (32.0-36.0); Mean Corpuscular Volume 95.9 fL (80.0-100.0); Mean Platelet Volume 10.7 fL (9.4-12.4); Monocytes # (auto) 1.41 K/uL (0.11-0.59); Monocytes % (auto) 7.5 %; Neutrophils # (auto) 15.67 K/uL (1.40-6.50); Neutrophils % (auto) 83.9 %; Platelet Count 310 K/uL (130-400); RDW Coefficient of Variation 21.1 % (11.5-14.5); RDW Standard Deviation 73.4 fL (36.4-46.3); Red Blood Count 2.44 M/uL (4.70-6.10); White Blood Count 18.69 K/ul (4.8-10.8)
[2024-03-23 06:40] LABS: Albumin Globulin Ratio 1.1 (0.9-2); Albumin Level 3.3 gm/dl (3.4-5.0); BUN Creatinine Ratio 18.4 (10-20); Bilirubin,Total 0.8 mg/dl (0.2-1.0); Calcium 8.1 mg/dl (8.6-10.3); Creatinine Clr Calc Pharmacy 54.3 ml/min; Est GFR (Non-African American) 55.2 ml/min; Potassium 4.3 mmol/L (3.5-5.1); Total Protein 6.3 gm/dl (6.0-8.3)
[2024-03-23 06:49] LABS: Anisocytosis Present; Ovalocytes 1+
[2024-03-23 07:11] VITALS: PULSE 93; RESP 16
[2024-03-23 08:20] LABS: Polychromasia 1+
[2024-03-23 14:05] VITALS: BP 112/64
--- NOTE | 2024-03-23 18:14 | Discharge Summary ---
Discharge Summary Date of Service March 23, 2024 Principal Dx & Hospital Course #1 = Principal Diagnosis (1) Cellulitis: Presented with right foot cellulitis, likely secondary to foreign body right heel. - Seen by PCP on 03/20/24 where some glass was removed from the heel of his right foot with streaks of pus coming afterwards. No cellulitic changes at that time. Patient sent home with Keflex 500 mg twice daily x 10 days. He did not pick up and delivery driver the prescription. - Presented to ED with cellulitis, nausea and vomiting, and pain in the right heel. - Given Tdap vaccine in ED. - No pressure ulcers noted on exam on admission. - Wound culture positive for Staph aureus. Blood cultures negative x 24 hours. - CT of foot and ankle revealed moderate cellulitis along the plantar margin, and more focal fluid measuring 2.5 cm along the plantar calcaneal margin, possible phlegmon. No abscess or acute bony abnormality. > Unlikely that this fluid collection will respond to antibiotics alone. - Podiatry consulted, appreciate assistance. > Dr. Albright performed bedside I&D on 03/22/2024 with 4-5 cc of purulent drainage expressed. > Follow-up with podiatry outpatient. - Wound care nurse consulted, appreciate recommendations. > Clean right plantar heel with saline. Cover with Aquacel Ag and secure with Optifoam. Change every day or if Optifoam is covered > 50% with drainage. She was on 1 feet touch the ground. > Follow-up at wound clinic if no signs of healing in 1 week. - Discharged on mupirocin ointment and Keflex x 14 days. (2) CAD, multiple vessel: PAD/CAD/hypertension - History of multiple PCI - REMINGTON testing from is 0.67 on the right and 0.67 on the left, suggesting moderate arterial occlusive disease - No recent anginal symptoms and troponins within normal limits on admission - CXR on admission revealed 3.1 cm right perihilar nodular density. Chest CT recommended for further evaluation. - Chest CT revealed no change in aneurysmal dilation of the ascending aorta measuring 4.6 cm at the level of main pulmonary artery. No change in appearance of the chest. 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 Adjust regimen as needed. (4) COPD (chronic obstructive pulmonary disease): States he does still use cigarettes on occasion. 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 - No oxygen use at home - Discussed importance of stopping tobacco use given his COPD diagnosis - Patient feels he does not need nicotine patches - Continue home inhalers Plan Chronic Stable Conditions: Chronic anemia -Previous hemoglobins ranging between, 9 and 10, therefore current result likely around his baseline -Asymptomatic -Monitoring labs BPH w/ LUTS - Continue home medications Hyperlipidemia -Continue atorvastatin CODE STATUS: Full code Notes For Next Care Provider Patient presented with right foot cellulitis, likely secondary to foreign body (glass) that was in his right heel which was removed by his PCP prior to admission. Had a bedside I&D by Dr. Albright from podiatry. He was treated with vancomycin and cefepime while hospitalized. Discharged on mupirocin ointment and Keflex x 14 days. Medication Changes From Visit Mupirocin ointment and Keflex x 14 days Admission HPI Per Admitting Provider Patient is a 78-year-old male with past medical history of BPH with LUTS, COPD, current tobacco use, CAD, bioprosthetic heart valve, ascending aortic aneurysm, PAD, uncontrolled DM type II, hypertension, and CKD who arrived in the ED due to recent finding of foreign body (glass) on the heel of his right foot. He was seen in his PCPs office yesterday and some glass was removed from the heel of his foot with streaks of pus coming afterwards. At the time patient was not complaining of pain in that foot and did not have any cellulitic changes, therefore he was sent home with Keflex 500 mg twice daily for 10 days. Patient did not pick up and delivery driver this prescription, and then today he started noticing worsening nausea and vomiting and noted that there was some redness coming up medial and lateral aspect of his ankle and posterior aspect of heel that was warm and tender to touch. Patient states that due to pain in the right heel, he has been hesitant about walking on the accident but denies any weakness. Patient has not had any fevers, chills, weakness, chest pain, worsening shortness of breath, or any other systemic symptoms. ED Course: given NSS 1 L bolus x2, Ceftriaxone 2 g x1 dose, Vancomycin order placed Labs/Imaging: CBC with leukocytosis of 29.68 with neutrophilic predominance, anemia of 9.2, platelets stable at 375. CMP with mild hyponatremia 133, other electrolytes within reference range, correct creatinine of 1.5 which is around patient's baseline, blood sugar of 211. Lactate 2 Pro-Ricardo MOUTH: Mucous membranes moist, no lesions, tongue and gums appear normal. 0.32. Troponin is in normal range at 15.4. Medical History: [Reviewed] Medications: [Reviewed] Surgical History: [Reviewed] Family history: [Reviewed] Allergies: [Reviewed] Social History: [Reviewed] Discharge Exam General: No acute distress, nondiaphoretic, well-developed, well-nourished. Skin: No swelling or calf tenderness in bilateral LE, skin hyperpigmentation in bilateral distal legs that is nontender, right heel with punctate lesion covered in dressing at time of evaluation, dressing clean, dry, intact, erythema with associated tenderness (improved), no other findings above bilateral malleolus. Cardiac: Regular rate and rhythm without murmurs gallops or rubs. Pulm: Clear to auscultation bilaterally without wheezes, rales or rhonchi. No respiratory distress. 95% on room air. Abdominal: Soft, nontender, nondistended. Bowel sounds present. Neuro: A&O x3. No focal neurological deficits. Discharge Plan Discharge Items Patient Disposition: Home - Self-Care Reason For Visit: WOUND Discharge Diagnosis: Right foot cellulitis Activity: As commented below Activity Comment: Activity as tolerated Non-emergency contact: Primary Care Provider and Specialist Call non-emergency contact if: you have any medication questions, your symptoms worsen and you have a fever Follow-up/Referrals: Leandro Rodrigues MD [Primary Care Provider] - 03/29/24 11:30 am (hospital follow up) Dedrick Albright DPM [Physician] - 03/27/24 1:00 pm Diet: Carb Consistent or DM2, Heart Healthy and Low Sodium (2gm) Addtl Attending Provider Instructions: Mr. Wright, You were admitted to the hospital with right foot cellulitis, likely secondary to the foreign body (glass) that was in your right heel. Cellulitis is a skin/soft tissue infection caused by bacteria. You had an incision and drainage procedure performed by Dr. Albright from podiatry while hospitalized. You were treated with IV antibiotics while hospitalized, and will continue on an oral antibiotic upon discharge. Your prescriptions have been sent to the [facility] pharmacy in [place]. Upon discharge from the hospital: * Take cephalexin (oral antibiotic) twice daily x 14 days. It is important to complete this course of antibiotic even if you feel better. It treats the infection and stops it from returning. Not taking all of the medicine can make future infections harder to treat. * Use mupirocin ointment 3 times daily x 1-2 weeks. After applying the ointment, you can cover the area with gauze. * Follow the wound care instructions provided by your nurse. * Follow-up with podiatry outpatient. Their office will call you with an appointment date and time. * Continue your other home medications as prescribed. Please contact your PCP or return to the hospital if you experience any of the following: Fever of 100.5 F or higher, trouble or pain when moving the joints above or below the infected area, increased discharge or pus draining from the area, worsened pain in or around the infected area, redness that expands to a wider area, worsened swelling of the infected area, persistent nausea and vomiting, confusion, lightheadedness, dizziness, passing out, shortness of breath, or chest pain. It was a pleasure taking care of you while you were in the hospital, Deneen Velasquez PA-C Pending Studies at Discharge: No Stand-Alone Forms: My [facility], Smoking Cessation Medications and DC Order Prescriptions: New mupirocin 2 % ointment 1 applic topical TID Qty: 15 0RF Rx Instructions: Apply a thin layer to the affected area 3 times daily. The area may be covered with gauze dressing. Continue for 1-2 weeks. cephalexin 500 mg capsule 500 mg PO Q12H 14 Days Qty: 28 0RF Continued memantine 5 mg tablet 5 mg PO BID Qty: 180 3RF glimepiride 1 mg tablet See Rx Instructions PO BID Qty: 270 3RF Rx Instructions: 2 mg in am and 1 mg in pm orally Before your breakfast and evening meal. nitroglycerin [Nitrostat] 0.4 mg tablet, sublingual 0.4 mg Sublingual Q5M PRN (Reason: Chest Pain) Qty: 30 5RF Rx Instructions: place 1 tab under the tongue every 5 min. for up to 3 doses as needed for chest pain call 911 if pain persists cetirizine 10 mg tablet 10 mg PO DAILY PRN (Reason: allergy symptoms) Qty: 30 0RF ondansetron HCl 8 mg tablet 8 mg PO Q12H PRN (Reason: nausea and vomiting) Qty: 20 2RF gabapentin 300 mg capsule 600 mg PO TID hydrocortisone 2.5 % ointment 1 applic TOPICAL HS PRN (Reason: Itching) Qty: 28.35 11RF Rx Instructions: APPLY TO BOTH EARS diclofenac sodium 1 % gel 2 g topical QID PRN (Reason: foot pin) Qty: 300 3RF insulin glargine [Lantus Solostar U-100 Insulin] 100 unit/mL (3 mL) insulin pen See Rx Instructions SUBCUT BID Qty: 15 0RF Rx Instructions: 18 units in am and 24 units at bedtime acetaminophen [Tylenol Extra Strength] 500 mg Tablet 1,000 mg PO TID PRN (Reason: Pain) buspirone 30 mg Tablet 30 mg PO TID finasteride 5 mg Tablet 5 mg PO QAM epinephrine [EpiPen] 0.3 mg/0.3 mL Auto-Injector 0.3 mg IM Q3H PRN (Reason: Allergy Symptoms) duloxetine 60 mg Capsule,Delayed Release(Dr/Ec) 60 mg PO QAM lamotrigine 200 mg Tablet 200 mg PO HS atorvastatin [Lipitor] 40 mg Tablet 40 mg PO HS donepezil 10 mg Tablet 10 mg PO QAM aspirin 81 mg tablet,delayed release (DR/EC) 40.5 mg PO QAM Rx Instructions: 1/2 TABLET DOSE clopidogrel 75 mg tablet 75 mg PO QDD mupirocin 2 % ointment 1 applic topical BID PRN (Reason: Skin Irritation) alfuzosin 10 mg tablet extended release 24 hr 10 mg PO HS Rx Instructions: at bedtime for prostate symptoms. albuterol sulfate 90 mcg/actuation Hfa Aerosol Inhaler 2 puff INHALATION Q4 PRN (Reason: Shortness Of Breath Or Wheezing) Breztri Aerosphere 160-9-4.8 mcg/actuation HFA aerosol inhaler 2 inh inhalation QAM carvedilol 3.125 mg tablet 3.125 mg PO AMHS Rx Instructions: must administer with a meal/food duloxetine 30 mg capsule,delayed release(DR/EC) 30 mg PO QPM Rx Instructions: with evening meal along with 60 mg in am. timolol maleate Rx Instructions: 1 drop BL eyes at night Discharge Orders: Discharge Order (Routine); Ordered 03/23/24 Ordered By: Deneen Lezama/Other Patient Handouts: Cellulitis Dc Admission Data Admit Date/Time: 03/21/24 22:54 Attending Provider: Lam Carter Admit Provider: Mary Beth Goldstein Primary Care Provider: Leandro Rodrigues Other Providers: Chris Rosas; Dedrick Albright Other Interventions: Discharge Summary Assessment (RN) Last Done: 03/23/24 14:04 Hospital Stay Data Consultations 03/21/24 22:36 ED Decision to Admit Stat 03/22/24 08:48 Consult Podiatry Routine Diagnostic Imagining Performed Laboratory Results WBC 18.69 K/ul (4.8-10.8) H 03/23/24 05:54 RBC 2.44 M/uL (4.70-6.10) L 03/23/24 05:54 Hgb 7.6 g/dl (14.0-18.0) L 03/23/24 05:54 POC Hgb 10.5 g/dl (14.0-18.0) L 03/21/24 21:44 Hct 23.4 % (42.0-52.0) L 03/23/24 05:54 POC Hct 31 % (42-52) L 03/21/24 21:44 MCV 95.9 fL (80.0-100.0) 03/23/24 05:54 MCH 31.1 pg (25.0-34.0) 03/23/24 05:54 MCHC 32.5 g/dL (32.0-36.0) 03/23/24 05:54 RDW Std Deviation 73.4 fL (36.4-46.3) H 03/23/24 05:54 RDW Coeff of Linda 21.1 % (11.5-14.5) H 03/23/24 05:54 Plt Count 310 K/uL (130-400) 03/23/24 05:54 MPV 10.7 fL (9.4-12.4) 03/23/24 05:54 Immature Gran % (Auto) 0.6 % 03/23/24 05:54 Neut % (Auto) 83.9 % 03/23/24 05:54 Lymph % (Auto) 7.2 % 03/23/24 05:54 Yuba % (Auto) 7.5 % 03/23/24 05:54 Eos % (Auto) 0.5 % 03/23/24 05:54 Baso % (Auto) 0.3 % 03/23/24 05:54 Neut # (Auto) 15.67 K/uL (1.40-6.50) H 03/23/24 05:54 Lymph # (Auto) 1.35 K/uL (1.20-3.40) 03/23/24 05:54 Yuba # (Auto) 1.41 K/uL (0.11-0.59) H 03/23/24 05:54 Eos # (Auto) 0.09 K/uL (0.00-0.50) 03/23/24 05:54 Baso # (Auto) 0.05 K/uL (0.00-0.20) 03/23/24 05:54 Immature Gran # (Auto) 0.12 K/uL (0.01-0.20) 03/23/24 05:54 Absolute Nucleated RBC 0.02 K/uL (0.00-0.12) 03/21/24 21:35 Nucleated RBC % (auto) 0.1 % 03/21/24 21:35 Polychromasia 1+ 03/22/24 06:54 Poikilocytosis Present 03/22/24 06:54 Anisocytosis Present 03/23/24 05:54 Target Cells 1+ 03/21/24 21:35 Ovalocytes 1+ 03/23/24 05:54 PT 11.3 Seconds (9.0-12.0) 03/21/24 21:35 INR 1.0 (0.9-1.1) 03/21/24 21:35 APTT 29 Seconds (21-31) 03/21/24 21:35 PTT Ratio 1.1 03/21/24 21:35 POC Sodium 134 mmol/L (135-144) L 03/21/24 21:44 Sodium 137 mmol/L (136-145) 03/23/24 05:54 POC Potassium 5.0 mmol/L (3.3-5.0) 03/21/24 21:44 Potassium 4.3 mmol/L (3.5-5.1) 03/23/24 05:54 POC Chloride 102 mmol/L (101-112) 03/21/24 21:44 Chloride 109 mmol/L (98-107) H 03/23/24 05:54 Carbon Dioxide 22 mmol/L (21-32) 03/23/24 05:54 POC Total CO2 23 mmol/L (24-31) L 03/21/24 21:44 Anion Gap 6 (3-11) 03/23/24 05:54 POC Anion Gap 15.0 mmol/L (16-25) L 03/21/24 21:44 POC BUN 31 mg/dl (7-18) H 03/21/24 21:44 BUN 23 mg/dl (6-23) 03/23/24 05:54 Creatinine 1.25 mg/dl (0.6-1.4) 03/23/24 05:54 POC Creatinine 1.5 mg/dl (0.6-1.3) H 03/21/24 21:44 Est Cr Clr Drug Dosing 54.3 ml/min 03/23/24 05:54 Est GFR ( Amer) 64.0 ml/min 03/23/24 05:54 Est GFR (Non-Af Amer) 55.2 ml/min 03/23/24 05:54 BUN/Creatinine Ratio 18.4 (10-20) 03/23/24 05:54 Glucose 119 mg/dl (70-99(Fasting)) H 03/23/24 05:54 POC Glucose 169 mg/dl (70-99) H 03/23/24 11:50 POC Glucose (other) 208 mg/dl (70-99) H 03/21/24 21:44 Lactate 1.2 mmol/L (0.4-2.0) 03/21/24 21:35 Calcium 8.1 mg/dl (8.6-10.3) L 03/23/24 05:54 POC Ioniz Calcium Aliza 1.14 mmol/l (1.12-1.32) 03/21/24 21:44 Magnesium 1.7 mg/dl (1.7-2.4) 03/21/24 21:35 Total Bilirubin 0.8 mg/dl (0.2-1.0) 03/23/24 05:54 Direct Bilirubin 0.3 mg/dl (0-0.2) H 03/21/24 21:35 AST 14 U/L (13-39) 03/23/24 05:54 ALT 12 U/L (7-52) 03/23/24 05:54 Alkaline Phosphatase 96 U/L (34-104) 03/23/24 05:54 Troponin I High Sens 15.4 pg/ml (0-20) 03/21/24 21:35 Total Protein 6.3 gm/dl (6.0-8.3) 03/23/24 05:54 Albumin 3.3 gm/dl (3.4-5.0) L 03/23/24 05:54 Globulin 3.0 gm/dl (2.5-4.0) 03/23/24 05:54 Albumin/Globulin Ratio 1.1 (0.9-2) 03/23/24 05:54 Procalcitonin 0.32 ng/ml (0-0.5) 03/21/24 21:35 Urine Color Yellow 03/21/24 23:39 Urine Appearance Clear (Clear) 03/21/24 23:39 Urine pH 5.0 (4.5-7.5) 03/21/24 23:39 Ur Specific Cameron 1.031 (1.000-1.030) H 03/21/24 23:39 Urine Protein Trace (Negative) H 03/21/24 23:39 Urine Glucose (UA) Negative (Negative) 03/21/24 23:39 Urine Ketones Negative (Negative) 03/21/24 23:39 Urine Blood Negative (Negative) 03/21/24 23:39 Urine Nitrite Negative (Negative) 03/21/24 23:39 Urine Bilirubin Negative (Negative) 03/21/24 23:39 Urine Urobilinogen Negative (Negative) 03/21/24 23:39 Ur Leukocyte Esterase Negative (Negative) 03/21/24 23:39 Urine WBC (Auto) 0-5 /hpf (0-5) 03/21/24 23:39 Urine RBC (Auto) 0-2 /hpf (0-2) 03/21/24 23:39 U Hyaline Cast (Auto) 0-2 /lpf (0-2) 03/21/24 23:39 U Epithel Cells (Auto) 0-2 /hpf (0-2) 03/21/24 23:39 Urine Bacteria (Auto) None Seen (None Seen) 03/21/24 23:39 Nasal Screen MRSA (PCR) Negative (Negative) 03/21/24 23:13 Stl C. diff Tox B Gene Negative Cdiff Gene (Neg) 03/22/24 05:17 Impressions Chest X-Ray 03/21/24 21:30 XR chest 1V portable CLINICAL HISTORY: Sepsis COMPARISON STUDY: Chest CT June 16, 2023. FINDINGS: A biventricular left subclavian pacer is in place. There are median sternotomy wires. Cardiomediastinal silhouette is stable. There is no pneumothorax or pleural effusion. A 3.1 cm right perihilar nodular density is noted. This may represent summation artifact. Otherwise, the appearance of the chest is unchanged. IMPRESSION: 3.1 cm right perihilar nodular density. This may reflect summation artifact. A pulmonary nodule, lymphadenopathy or pneumonia could appear similar. Chest CT is recommended for further evaluation. This finding will be called/faxed to the ordering provider at time of dictation. ACT 112: Positive. There are findings on this exam that require communication between the performing entity and the patient following Patient Test Result Information Act ([place] Act 112) guidelines. Electronically signed by: Duncan Fonseca M.D. 03/22/2024 6:[address] 03/21/24 21:30 Exam(s): CT RIGHT FOOT With Contrast IV Amt: 93 ml optiay 320 EXAM: CT Right Lower Extremity With Intravenous Contrast, Foot CLINICAL HISTORY: Reason for exam: abscess. TECHNIQUE: Axial computed tomography images of the right foot with intravenous contrast. CTDI is 19.67 mGy and DLP is 430.7 mGy-cm. Automated exposure control was utilized for the study. A dose lowering technique was utilized adhering to the principles of ALARA. CONTRAST: Patient received 93 ml optiay 320 of IV contrast COMPARISON: No relevant prior studies available. FINDINGS: Bones/joints: Plantar calcaneal spur, can be associated with plantar fasciitis. Mild osteoarthritis throughout the foot. No acute fracture. No dislocation. Soft tissues: Thickening of the plantar fascia. Moderate cellulitis superficial and deep to the fascia involving the mid and hindfoot. More focal fluid measuring 2.5 cm along the plantar calcaneal margin, possible phlegmon. No abscess or fluid collection. No radiopaque foreign body. IMPRESSION: 1. Plantar calcaneal spur, plantar fascial thickening and moderate cellulitis along the plantar margin foot. 2. More focal fluid measuring 2.5 cm along the plantar calcaneal margin, possible phlegmon. 3. No abscess or acute bony abnormality. Electronically signed by: Svetlana Perry M.D. 03/21/24 23:[address] 03/21/24 21:30 Exam(s): CT HEAD Without Contrast EXAM: CT Head Without Intravenous Contrast CLINICAL HISTORY: Reason for exam: AMS. TECHNIQUE: Axial computed tomography images of the head/brain without intravenous contrast. CTDI is 62.25 mGy and DLP is 1100.35 mGy-cm. Automated exposure control was utilized for the study. A dose lowering technique was utilized adhering to the principles of ALARA. COMPARISON: MRI brain 03/24/21. FINDINGS: Brain: No mass effect or acute infarct. No acute hemorrhage. Mild atrophy and chronic white matter disease, stable, given differences in technique. Ventricles: No hydrocephalus or midline shift. Bones/joints: No acute finding. Soft tissues: No scalp hematoma. Visualized Sinuses: Stable mild right sphenoid mucosal thickening, likely chronic sinusitis; otherwise, clear. No fluid levels. Mastoid air cells: No mastoid effusion. IMPRESSION: 1. Stable age-related findings. 2. No acute infarct, bleed, or acute intracranial abnormality. Electronically signed by: Svetlana Perry M.D. 03/21/24 23:[address] 03/22/24 08:55 CT chest diagnostic wo con CT DOSE: 652.76 mGy.cm HISTORY: Abnormal chest x-ray. Follow-up. Recommended for further eval based on CXR findings TECHNIQUE: Multiaxial CT images of the chest were performed without contrast. A dose lowering technique was utilized adhering to the principles of ALARA. COMPARISON: Chest CT 06/16/2023. FINDINGS: A left biventricular pacer/AICD is in place. There is a prosthetic aortic valve. Dilatation of the ascending aorta, measuring 4.6 cm at the level of the main pulmonary artery is unchanged. No intramural hematoma is identified. Mild cardiomegaly is noted. There is no pericardial effusion. There is no thoracic lymphadenopathy. Several partially calcified thoracic lymph nodes are present. There is mild paraseptal emphysema. No pneumothorax or pleural effusion is noted. There are no suspicious pulmonary nodules. Calcific granuloma within the left lower lobe again noted. The appearance of the chest is unchanged. Low er lobe bronchial wall thickening is again noted. Interstitial thickening within the right lower lobe posteriorly persists. This is likely chronic. IMPRESSION: 1. No change in the aneurysmal dilatation of the ascending aorta measuring 4.6 cm at the level of the main pulmonary artery. 2. No change in appearance of the chest. ACT 112: Negative or not required by law. Electronically signed by: Aldo Brooks M.D. 03/22/2024 12:34 PM Pending Results Patient Have Any Pending Studies at Discharge: No Discharge Instructions Given to Patient (Per Discharging Provider) Mr. Wright, S[place] were admitted to the hospital with right foot cellulitis, likely secondary to the foreign body (glass) that was in your right heel. Cellulitis is a skin/soft tissue infection caused by bacteria. You had an incision and drainage procedure performed by Dr. Albright from podiatry while hospitalized. You were treated with IV antibiotics while hospitalized, and will continue on an oral antibiotic upon discharge. Your prescriptions have been sent to the [facility] in [place]. Upon discharge from the hospital: * Take cephalexin (oral antibiotic) twice daily x 14 days. It is important to complete this course of antibiotic even if you feel better. It treats the infection and stops it from returning. Not taking all of the medicine can make future infections harder to treat. * Use mupirocin ointment 3 times daily x 1-2 weeks. After applying the ointment, you can cover the area with gauze. * Follow the wound care instructions provided by your nurse. * Follow-up with podiatry outpatient. Their office will call you with an appointment date and time. * Continue your other home medications as prescribed. Please contact your PCP or return to the hospital if you experience any of the following: Fever of 100.5 F or higher, trouble or pain when moving the joints above or below the infected area, increased discharge or pus draining from the area, worsened pain in or around the infected area, redness that expands to a wider area, worsened swelling of the infected area, persistent nausea and vomiting, confusion, lightheadedness, dizziness, passing out, shortness of breath, or chest pain. It was a pleasure taking care of you while you were in the hospital, Deneen Velasquez PA-C Total Time Total Time Spent Total Time Spent (In Minutes): Greater than 30 minutes spent completing this discharge process including direct patient care, medication reconciliation, documentation, review of labs and images, and coordination of care. 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
== END 2024-03-23 14:47 | disposition home or self-care (01) | DRG 603 ==
LOC: ED 21:06 → SUATTDRO 22:54 → 3N 22:54
DX: Z88.8 Allergy status to other drugs, medicaments and biological substances; E78.5 Hyperlipidemia, unspecified; Z88.2 Allergy status to sulfonamides; S90.851A Superficial foreign body, right foot, initial encounter; X58.XXXA Exposure to other specified factors, initial encounter; B95.61 Methicillin susceptible Staphylococcus aureus infection as the cause of diseases classified elsewhere; Z79.82 Long term (current) use of aspirin; Z79.899 Other long term (current) drug therapy; N40.1 Benign prostatic hyperplasia with lower urinary tract symptoms; E11.43 Type 2 diabetes mellitus with diabetic autonomic (poly)neuropathy; E11.65 Type 2 diabetes mellitus with hyperglycemia; Z95.2 Presence of prosthetic heart valve; Z95.0 Presence of cardiac pacemaker; E11.42 Type 2 diabetes mellitus with diabetic polyneuropathy; Z97.4 Presence of external hearing-aid; L02.415 Cutaneous abscess of right lower limb; Z88.0 Allergy status to penicillin; L03.115 Cellulitis of right lower limb; F17.210 Nicotine dependence, cigarettes, uncomplicated; N18.30 Chronic kidney disease, stage 3 unspecified; E11.51 Type 2 diabetes mellitus with diabetic peripheral angiopathy without gangrene; Z86.73 Personal history of transient ischemic attack (TIA), and cerebral infarction without residual deficits; I25.10 Atherosclerotic heart disease of native coronary artery without angina pectoris; Z88.5 Allergy status to narcotic agent; Z86.16 Personal history of COVID-19; D63.1 Anemia in chronic kidney disease; J44.9 Chronic obstructive pulmonary disease, unspecified; Z79.4 Long term (current) use of insulin; I12.9 Hypertensive chronic kidney disease with stage 1 through stage 4 chronic kidney disease, or unspecified chronic kidney disease; Z86.711 Personal history of pulmonary embolism; Z95.5 Presence of coronary angioplasty implant and graft; I25.2 Old myocardial infarction

== ENCOUNTER 2024-05-14 16:21 | Inpatient (IN) ==
--- OUTSIDE RECORDS SUMMARY | 2024-05-14 16:26 | External Medical Summary ---
Author Name Unknown Address Unknown Organization : Laboratory Report Ordering Provider Test Date Status KARINA RODRIGUEZ 05/05/2024 07:08:56 Final Observation Date Value Abnormality Reference (Units ) Status Glucose Point of Care 05/05/2024 07:08:56 138 Above high normal 70-120 (mg/dL) Final Performing Location
--- OUTSIDE RECORDS SUMMARY | 2024-05-14 16:26 | External Medical Summary | Summary of Care ---
Author Name Unknown Organization [facility] Address [address] [place] [address] Phone [phone] Care Team Providers Care Manager Call Name Role Phone Leandro Rodrigues MD Primary Care Provider [phone] Reason for Visit * Auth/Cert Specialty Diagnoses / Procedures Referred By Conttimothy t Referred To Contact Diagnoses Lumbar radicular pain Lumbar radicular pain [M54.16] Procedures LUMBAR / SACRAL EPIDURAL, SINGLE LEVEL LUMBAR / SACRAL EPIDURAL, ADD'L LEVEL INJECTION TRANSFORAMINAL EPIDURAL LUMBAR OR SACRAL INJECTION TRANSFORAMINAL EPIDURAL LUMBAR OR SACRAL ADDITIONAL Jules Trivedi, DO [address] [place] [address] Or Os [address] [place] [phone] Referral ID Status Reason Start Date Expiration Date Visits Re quested Visits Authorized [id number] Encounter Details Date Type Department Care Team (Latest Contact Info) Description 05/05/2024 6:40 AM EDT - 05/05/2024 8:15 AM EDT Hospital Encounter [facility], Operating Room [facility] [address] [place] [address] [place] [phone] Jules Trivedi, DO [address] [facility] [place] [phone] Discharge Disposition: Home - Self Care Allergies Active Allergy Reactions Criticality Noted Date Comments Bee Venom Anaphylaxis High 11/24/2011 Codeine High 10/19/2017 haullication Other reaction(s): HALLUCINATING Other Reaction(s): HALLUCINATING, unknown Lisinopril 08/16/2023 Other Reaction(s): unknown reaction Meloxicam 09/01/2022 Other reaction(s): renal failure Other Reaction(s): renal failure Penicillins 11/24/2011 Childhood reported by mother Tamsulosin Hypotension 2021 Other reaction(s): Dizziness Other Reaction(s): Low blood pressure, Dizziness documented as of this encounter (statuses as of 05/05/2024) Medications Medication Sig Dispensed Refills Start Date End Date Status METOPROLOL TARTRATE 25 MG PO TABSIndications:Aorti c stenosis,Aortic valve disorders,INTERFACED RESULT,DM type 2 causing neurological disease (HCC),HTN, goal below 130/80,Coronary atherosclerosis of [place] coronary artery,COPD, mild (HCC),BPH (benign prostatic hyperplasia),TIA (transient ischemic attack),Bicuspid aortic valve,Post-surgical complete heart block (HCC),Anemia associated with acute blood loss,Aortic root dilatation (HCC),PFO (patent foramen ovale),Dyslipidemia, goal LDL below 100,AVB (atrioventricular block),Cardiac pacemaker in situ,PTSD (post-traumatic stress disorder),H/O repair of right rotator cuff Take 1/2 tab twice per day 60 Tab 2 12/22/2011 Active Additional Information Patient not taking.Reported on 02/24/2024 ASPIRIN 81 MG PO TABS 0.5 tablet daily Active EPIPEN 0.3 MG/0.3ML IJ RED Inject as directed. Active Hydrocortisone 2.5 % ointment 06/17/2016 Active furosemide (LASIX) 20 MG Tablet Take 1 Tablet by mouth in the morning and 1 Tablet before bedtime. Active Nitroglycerin 0.4 MG Sublingual Tablet Sublingual Place 1 Tablet under the tongue every 5 minutes as needed for Pain, Chest. Active lamoTRIgine (LAMICTAL) 200 MG Tablet 07/16/2017 Active busPIRone (BUSPAR) 15 MG Tablet 2 Tablets in the morning and 2 Tablets at noon and 2 Tablets before bedtime. 07/16/2017 Active Insulin Glargine 100 UNIT/ML Subcutaneous Solution Pen-injectorIndicatio ns:Inject 16 units in the am and 16 units at night Inject 30 Units under the skin in the morning and 30 Units in the evening. Active NOVOFINE PLUS 32G X 4 MM 06/28/2018 Active finasteride (PROSCAR) 5 MG Tablet Take 1 Tablet by mouth. Active ofloxacin (FLOXIN) 0.3 % otic solution 04/11/2019 Activ e Clopidogrel Bisulfate 75 MG Oral Tablet Take 1 Tablet by mouth in the morning. Active Atorvastatin Calcium 40 MG Oral Tablet Take 1 Tablet by mouth in the morning. Active DULoxetine HCl 60 MG Oral Capsule Delayed Release Particles (Cymbalta) Take 1 Capsule by mouth in the morning. Active Acetaminophen 500 MG Oral Tablet Take 2 Tablets by mouth every 8 hours as needed. Active Memantine HCl 5 MG Oral Tablet (Namenda) Take 1 Tablet by mouth 2 times a day with morning and evening meals. Active Donepezil HCl 10 MG Oral Tablet (Aricept) Take 1 Tablet by mouth. Active Timolol Maleate 0.5 % Ophthalmic Solution (Timoptic) INSTILL 1 DROP IN LEFT EYE EVERY DAY IN THE MORNING FOR GLAUCOMA 04/29/2021 Active Carvedilol 6.25 MG Oral Tablet (Coreg) 0.5 Tablets. 08/17/2022 Act dee linaCLOtide 145 MCG Oral Capsule (Linzess) Take 1 Capsule by mouth daily before breakfast. Active Empagliflozin 10 MG Oral Tablet (Jardiance) Start: 11/10/23 10:13:00 EDT 11/10/2023 Active ARIPiprazole 10 MG Oral Tablet (Abilify) 0.5 Tablets. 10/29/2023 A ctive Gerrysp-Jdxxrwhblev-Y ormoterol 160-9-4.8 MCG/ACT Inhalation Aerosol 2 times a day. 12/02/2022 Active Loratadine 10 MG Oral Tablet (Claritin) Take 1 Tablet by mouth in the morning. 10/14/2023 Active Mupirocin 2 % External Ointment (Bactroban) 10/05/2023 Active Mupirocin Calcium 2 % External Cream (Bactroban) Start: 11/10/23 10:12:00 EDT 11/10/2023 Active GaviLyte-G 236 GM Oral Solution Reconstituted 08/17/2023 Active Diclofenac Sodium 1 % External Gel (Voltaren) 09/17/2023 Active Albuterol Sulfate HFA 108 (90 Base) MCG/ACT Inhalation Aerosol Solution Active Glimepiride 1 MG Oral Tablet (Amaryl) 01/07/2024 Active Latanoprost 0.005 % Ophthalmic Solution (Xalatan) 1 Drop at bedtime. Active Fluticasone-Salmetero l 250-50 MCG/ACT Inhalation Aerosol Powder Breath Activated (Advair Diskus) Inhale 1 Puff by mouth in the morning and 1 Puff before bedtime. Active Cetirizine HCl 10 MG Oral Capsule 1 Capsule. 11/10/2023 Active Gabapentin 600 MG Oral Tablet (Neurontin) Take 1 Tablet by mouth in the morning and 1 Tablet at noon and 1 Tablet before bedtime. 90 Tablet 3 03/13/2024 Active DULoxetine HCl 30 MG Oral Capsule Delayed Release Particles (Cymbalta) 02/28/2024 Active documented as of this encounter (statuses as of 05/05/2024) Active Problems Problem Noted Date Diagnosed Date HTN, GOAL BELOW 140/80 03/28/2012 Overview: Per HTN Protocol #27. Pulmonary embolism 12/23/2011 Anticoagulation management encounter 12/23/2011 [facility] current use of anticoagulant therapy 0 12/23/2011 Overview: ICD-10 update of inactive term AVB (atrioventricular block) 12/22/2011 Cardiac pacemaker in situ 12/22/2011 Aortic stenosis 12/14/2011 Overview: Severe stenosis Aortic root dilatation 12/14/2011 Bicuspid aortic valve 12/14/2011 PTSD (post-traumatic stress disorder) 12/14/2011 BPH (benign prostatic hyperplasia) 12/14/2011 DM type 2 causing neurological disease 2 Coronary atherosclerosis of [place] coronary eusebio ry 12/14/2011 Overview: Has 3 stents, some bare metal, some DOMINIQUE PFO (patent foramen ovale) 12/14/2011 Dyslipidemia, goal LDL below 100 12/14/2011 TIA (transient ischemic attack) 12/14/2011 Overview: TIA in 2010 H/O repair of right rotator cuff 12/14/2011 Overview: Repair done 09/2011 COPD, mild 12/14/2011 documented as of this encounter (statuses as of 05/05/2024) Resolved Problems Problem Noted Date Diagnosed Date Resolved Date HTN, goal below 130/80 12/14/201103/31 Overview: Per HTN Protocol #27. documented as of this encounter (statuses as of 05/05/2024) Social History Tobacco Use Types Packs/Day Years Used Date Smoking Tobacco: Former Cigarettes 1 40 1 08/09/1970 - 06/09/2011 Smokeless Tobacco: Former Chew Quit: 08/09/2015 Comments:pt atates that he i s interested in tobacco cessation; awaiting NRT lozengers from [facility] Alcohol Use Standard Drinks/Week Comments Not Currently 0.8 (1 standard drink = 0.6 oz p ure alcohol) Utilities Answer Date Recorded Do you have trouble paying y our heating, water, or electric bill? (Adult - for ages 18 years and over) Not on file 01/25/2024 Is your family able to pay t he heat, water, or electric bill? (Household - for ages 0-17 years) Not on file 01/25/2024 Does your family have access to good internet? (Household - for ages 0-17 years) Not on file 01/25/2024 Social Connections Answer Date Recorded How often do you feel lonely or isolated from those around you? (Adult - for ages 18 years and over) Not on file 01/25/2024 Sex and Gender Information Value Date Recorded Sex Assigned at Not on file Gender Identity Not on file Sexual Orientation Not on file Job Start Date Occupation Industry Not on file Not on file Not on file documented as of this encounter Last Filed Vital Signs Vital Sign Reading Time Taken Comments Blood Pressure 139/68 05/05/2024 8:02 AM EDT Pulse 67 05/05/2024 8:02 AM EDT Temperature 36.4 C (97.5 F) 05/05/2024 8:02 AM ED T Respiratory Rate 14 05/05/2024 8:02 AM EDT Oxygen Saturation 99% 05/05/2024 8:02 AM EDT Inhaled Oxygen Concentration - - Weight 82.6 kg (182 lb) 05/05/2024 6:53 AM EDT Height 175.3 cm (5' 9") 05/05/2024 6:53 AM EDT Body Mass Index 26.88 05/05/2024 6:53 AM EDT documented in this encounter Functional Status Functional Status Response Date of Assess ment Are you deaf or do you have serious difficulty hearing? No-hearing aides 08/28/2016 Are you blind or do you have serious difficulty seeing, even when wearing glasses? No 08/28/2016 Do you have serious difficul ty walking or climbing stairs? (5 years old or older) No 08/28/2016 Do you have difficulty dress ing or bathing? (5 years old or older) No 08/28/2016 Because of a physical, menta l, or emotional condition, do you have difficulty doing errands alone such as visiting a doctor s office or shopping? (15 years old or older) No 08/28/19 17 Cognitive Status Response Date of Assessm ent Because of a physical, menta l, or emotional condition, do you have serious difficulty concentrating, remembering, or making decisions? (5 years old or older) No 08/28/2016 documented as of this encounter Discharge Instructions * Discharge Instr - AVS* Jules Trivedi, - 05/05/2024 7:35 AM EDT Discharge Date: 05/05/2024 Check your Patient Education Brochure for further information. If you have any further questions call your physician at [phone]. The information below provides you with the instructions and the list of medications you need to betaking following discharge from the hospital. If you have any questions, please ask before leaving.If you have questions after you leave, you can reach us at the number above. You had the following procedure performed: Transforaminal Epidural Steroid Injection of L4-5 and L5-S1 space on left Wound Care: You may shower normally, but be sure to keep the injection site clean and dry. No soaking in a bathfor 48 hours. Activity: You may resume your regular diet as tolerated. Return to normal activities slowly as tolerated. Walking is very important for healing and your rehabilitation. Initially, you should walk at least two to three times daily. Then slowly and gradually increase your distance as your tolerance for physical activity increases. You may go up and down stairs carefully. You may resume home medications. If you received sedation, for the next 24 hours, you should NOT: Drive a vehicle, operate power machinery or power equipment Drink alcoholic beverages, including beer Make important decisions, such as signing contracts, etc. Notify physician for: Temperature greater than 101 degrees F. Increased pain. Calf swelling or tenderness. Drainage or redness of the incision. Chest pain or shortness of breath (and go to the Emergency Department) Date you may return to work or school: tomorrow documented in this encounter H&P Notes * Jules Trivedi DO - 05/05/2024 7:34 AM EDT Images from the original note were not included. Chencho Wright : 1945 Today's date: 05/05/24 HPI: Patient here for follow-up after CATALINA L5-S1 was completed on 03/06/2024, which she reports on 100% pain relief for approximately 2 weeks until he developed some increasing pain in his foot and was having difficulty walking. A few days later they discovered a piece of glass in his heel which was excised at his PCPs office and then became infected requiring hospitalization antibiotic therapy. 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 He does get numbness and tingling in both lower extremities, left is worse than right. Patient states he is okay during the day with his right leg however when he lays down at night he does get some numbness and tingling in that right leg as well. He denies any saddle anesthesia. He denies any recent falls or trauma. He denies any bowel or bladder incontinence. Pain Exact Location: back Radiation to: Left buttock, Left thigh, Left knee into Left foot Severity: 5/10 Duratuion: ongoing Progression: no change Characteristic: constant Quality: "achey" and burning Exacerbating/Limiting Factors : walking, standing Alleviating Factors: Sitting What medications have you used (OTC): Tylenol Any assocoiated symptoms: numbness, tingling Left foot, weakness BL lower extremities. Intermittentnumbness and tingling in the right lower extremity Any history of trauma: None Have you ever had the same kind of pain and what has been done for it: surgery, Medication, injections PMH: Patient Active Problem List Diagnosis Aortic stenosis Aortic root dilatation (HCC) Bicuspid aortic valve PTSD (post-traumatic stress disorder) BPH (benign prostatic hyperplasia) DM type 2 causing neurological disease (HCC) Coronary atherosclerosis of [place] coronary artery PFO (patent foramen ovale) Dyslipidemia, goal LDL below 100 TIA (transient ischemic attack) H/O repair of right rotator cuff COPD, mild (HCC) AVB (atrioventricular block) Cardiac pacemaker in situ Pulmonary embolism (HCC) Anticoagulation management encounter [facility] current use of anticoagulant therapy HTN, GOAL BELOW 140/80 Current Outpatient Medications Medication Sig Dispense Refill DULoxetine HCl 30 MG Oral Capsule Delayed Release Particles (Cymbalta) METOPROLOL TARTRATE 25 MG PO TABS Take 1/2 tab twice per day (Patient not taking: Reported on 02/24/2024) 60 Tab 2 ASPIRIN 81 MG PO TABS 0.5 tablet daily EPIPEN 0.3 MG/0.3ML IJ RED Inject as directed. Hydrocortisone 2.5 % ointment furosemide (LASIX) 20 MG Tablet Take 1 Tablet by mouth in the morning and 1 Tablet before bedtime. (Patient not taking: Reported on 03/06/2024) Nitroglycerin 0.4 MG Sublingual Tablet Sublingual Place 1 Tablet under the tongue every 5 minutes as needed for Pain, Chest. lamoTRIgine (LAMICTAL) 200 MG Tablet busPIRone (BUSPAR) 15 MG Tablet 2 Tablets in the morning and 2 Tablets at noon and 2 Tablets beforebedtime. Insulin Glargine 100 UNIT/ML Subcutaneous Solution Pen-injector Inject 30 Units under the skin in the morning and 30 Units in the evening. NOVOFINE PLUS 32G X 4 MM finasteride (PROSCAR) 5 MG Tablet Take 1 Tablet by mouth. ofloxacin (FLOXIN) 0.3 % otic solution Clopidogrel Bisulfate 75 MG Oral Tablet Take 1 Tablet by mouth in the morning. Atorvastatin Calcium 40 MG Oral Tablet Take 1 Tablet by mouth in the morning. DULoxetine HCl 60 MG Oral Capsule Delayed Release Particles (Cymbalta) Take 1 Capsule by mouth in the morning. Acetaminophen 500 MG Oral Tablet Take 2 Tablets by mouth every 8 hours as needed. Memantine HCl 5 MG Oral Tablet (Namenda) Take 1 Tablet by mouth 2 times a day with morning and evening meals. Donepezil HCl 10 MG Oral Tablet (Aricept) Take 1 Tablet by mouth. Timolol Maleate 0.5 % Ophthalmic Solution (Timoptic) INSTILL 1 DROP IN LEFT EYE EVERY DAY IN THE MORNING FOR GLAUCOMA Carvedilol 6.25 MG Oral Tablet (Coreg) 0.5 Tablets. linaCLOtide 145 MCG Oral Capsule (Linzess) Take 1 Capsule by mouth daily before breakfast. Empagliflozin 10 MG Oral Tablet (Jardiance) Start: 11/10/23 10:13:00 EDT (Patient not taking: Reported on 03/06/2024) ARIPiprazole 10 MG Oral Tablet (Abilify) 0.5 Tablets. Qcntpta-Uannjaxcgdv-Vmshcchmwq 160-9-4.8 MCG/ACT Inhalation Aerosol 2 times a day. (Patient not taking: Reported on 02/24/2024) Loratadine 10 MG Oral Tablet (Claritin) Take 1 Tablet by mouth in the morning. Mupirocin 2 % External Ointment (Bactroban) Mupirocin Calcium 2 % External Cream (Bactroban) Start: 11/10/23 10:12:00 EDT GaviLyte-G 236 GM Oral Solution Reconstituted Diclofenac Sodium 1 % External Gel (Voltaren) Albuterol Sulfate HFA 108 (90 Base) MCG/ACT Inhalation Aerosol Solution Glimepiride 1 MG Oral Tablet (Amaryl) Latanoprost 0.005 % Ophthalmic Solution (Xalatan) 1 Drop at bedtime. Fluticasone-Salmeterol 250-50 MCG/ACT Inhalation Aerosol Powder Breath Activated (Advair Diskus) Inhale 1 Puff by mouth in the morning and 1 Puff before bedtime. Cetirizine HCl 10 MG Oral Capsule 1 Capsule. Gabapentin 600 MG Oral Tablet (Neurontin) Take 1 Tablet by mouth in the morning and 1 Tablet at noon and 1 Tablet before bedtime. 90 Tablet 3 No current facility-administered medications for this visit. Past Surgical History: Procedure Laterality Date COLONOSCOPY, DIAGNOSTIC (RECTUM) 07/19/2013 normal, repeat 10 yrs/COLONOSCOPY FLEXIBLE PROXIMAL DIAGNOSTIC performed by Damian Vickers MD at ENDOSCOPY [facility] CORONARY ANGIOGRAPHY CATH PLACEMENT EGD, FLEXIBLE, DIAGNOSTIC N/A 12/29/2018 biopsies show Isidro's esophagitis/recall 3 years/EGD EGD, FLEXIBLE, DIAGNOSTIC N/A 12/29/2018 ESOPHAGOGASTRODUODENOSCOPY (EGD), FLEXIBLE, TRANSORAL, DIAGNOSTIC performed by Lesley Guillen DO at [facility] ERCP 10/24/2018 choledocholithiasis, gastritis / INPT [facility] INJECT DX/THER SUBSTANCE INTERLAMINAR LUMBAR/SACRAL W IMAGE GUIDE N/A 03/06/2024 INJECTION SPINE LUMBAR OR SACRAL performed by Jules Trivedi DO at OR [facility] INSERT/REPLACE PACEMAKER,ATRIAL/VENTRICULAR 12/18/2011 NEW DDD PACEMAKER IMPLANT performed by SUNDAR PARKER at [facility] L-/S-SPINE PARAVERTEBRAL FACET INJ,1 LEVEL Bilateral 12/25/2022 L-/S-SPINE PARAVERTEBRAL FACET INJ, 1 LEVEL performed by Fam Bassett MD at OR [facility] L-/S-SPINE PARAVERTEBRL FACET INJ,2 LEVELS Bilateral 12/25/2022 L-/S-SPINE PARAVERTEBRAL FACET INJ, 2 LEVELS performed by Fam Bassett MD at OR [facility] REPAIR SHOULDER CUFF AVULSION 09/2011 REPAIR STERNUM SEPARATION 12/15/2011 CLOSURE OF MEDIAN STERNOTOMY SEPARATION performed by DORI LOZANO at [facility] REPLACEMENT AORTIC VALVE, BYPASS WITH PROSTHETIC VALVE 12/14/2011 REPLACEMENT AORTIC VALVE performed by DORI LOZANO at OR [facility] Review of patient's allergies indicates: Allergen Reactions Bee Venom Anaphylaxis Codeine haullication Other reaction(s): HALLUCINATING Other Reaction(s): HALLUCINATING, unknown Lisinopril Other Reaction(s): unknown reaction Meloxicam Other reaction(s): renal failure Other Reaction(s): renal failure Penicillins Childhood reported by mother Tamsulosin Hypotension Other reaction(s): Dizziness Other Reaction(s): Low blood pressure, Dizziness Review of Systems Constitutional: Negative. Negative for appetite change, chills, fatigue and fever. Respiratory: Negative. Negative for cough, shortness of breath and wheezing. Cardiovascular: Negative. Negative for chest pain and leg swelling. Gastrointestinal: Negative. Endocrine: Negative for polydipsia and polyuria. Genitourinary: Negative. Musculoskeletal: Positive for arthralgias, back pain, gait problem and myalgias. Negative for jointswelling. Skin: Negative. Negative for color change, rash and wound. Allergic/Immunologic: Negative for immunocompromised state. Neurological: Positive for weakness and numbness. Negative for tremors. Hematological: Bruises/bleeds easily. Psychiatric/Behavioral: Positive for sleep disturbance. Negative for dysphoric mood. Objective BP 119/52 (BP Site: Left Arm, BP Position: Sitting, BP Cuff Size: Regular) | Pulse 80 | Temp 36 C(96.8 F) (Temporal Artery) | SpO2 96% Physical Exam Constitutional: General: He is awake. Appearance: Normal appearance. He is well-developed and normal weight. Musculoskeletal: Lumbar back: Tenderness and bony tenderness present. Decreased range of motion. Positive right straight leg raise test and positive left straight leg raise test. Back: Comments: + Facet loading Skin: General: Skin is warm and dry. Capillary Refill: Capillary refill takes less than 2 seconds. Neurological: Mental Status: He is alert, oriented to person, place, and time and easily aroused. GCS: GCS eye subscore is 4. GCS verbal subscore is 5. GCS motor subscore is 6. Cranial Nerves: Cranial nerves 2-12 are intact. Sensory: Sensation is intact. Motor: Motor function is intact. Coordination: Coordination is intact. Gait: Gait abnormal. Deep Tendon Reflexes: Reflex Scores: Patellar reflexes are 0 on the right side and 0 on the left side. Achilles reflexes are 0 on the right side and 0 on the left side. Psychiatric: Attention and Perception: Attention and perception normal. Mood and Affect: Mood and affect normal. Speech: Speech normal. Behavior: Behavior normal. Behavior is cooperative. Thought Content: Thought content normal. Cognition and Memory: Cognition and memory normal. Judgment: Judgment normal. IMAGING Date 10/15/2023 XR L SPINE FINDINGS L2-L4 posterior instrumented fusion, L2-L3 intervertebral disc spacer, posterior decompression, hardware is intact, in unchanged alignment, without felicity- hardware lucency or new fracture. Vertebral body heights are preserved. Severe intervertebral disc space narrowing at L4-L5. Osteophytes. Facet hypertrophy. Vascular calcifications. Surgical clips overlie the right upper quadrant of the abdomen. Intact sacroiliac joints. IMPRESSION L2-L4 posterior instrumented fusion, no hardware complication. Severe lumbar discovertebral degeneration at L4-L5. Date 10/27/2022 MRI L SPINE FINDINGS There are 5 lumbar type vertebrae. Conus terminates at T12-L1. Small cyst in the left kidney posteriorly. Iliopsoas muscles are normal. Posterior fusion at L2 to L4. There are laminectomies at this level. Severe disc disease at L3-L4. Severe disc disease at L4-5. Findings by level: L1-2: Moderate facet arthropathy without canal or foraminal narrowing. L2-3: Moderate facet arthropathy without canal or foraminal narrowing L3-4: Moderate facet arthropathy and mild bilateral foraminal narrowing L4-5: Moderate bilateral facet arthropathy ligamentum flavum prominence mild left lateral recess narrowing and moderate bilateral foraminal narrowing L5-S1: No canal or foraminal narrowing. IMPRESSION Posterior fusion at L2-L4 with laminectomies. Severe disc disease at L4-5. A small left extraforaminal disc bulge may contact the extraforaminal left L4 nerve root. Correlate with signs/symptoms. Moderate L4-5 foraminal narrowing bilaterally ASSESSMENT/PLAN: Proceed with left L4-5 and L5-S1 TFESI, restart Plavix tomorrow documented in this encounter Nursing Notes * Catia Monteiro RN - 05/05/2024 8:13 AM EDT [address] [id number] SameDay Surgery Discharge Note Name: Chencho Wright Date: 05/05/2024 Time: 8:13 AM Discharge Disposition: Home Responsible adult as escort home: yes Transport Mode: Wheelchair Accompanied by: Susan Monteiro RN To: Car Belongings with patient: Yes Patient meets criteria to be transferred or discharged. documented in this encounter OR Notes * OR Surgeon - Jules Trivedi DO - 05/05/2024 7:35 AM EDT Procedure Date: 05/05/2024 Chencho Wright 1945 PREOPERATIVE DIAGNOSIS: Lumbar radicular pain syndrome POSTOPERATIVE DIAGNOSIS: Same PROCEDURE PERFORMED: Lumbar Transforaminal Epidural Steroid Injection at L5-S1 and L4-L5 with fluoroscopic guidance. L4-5 level aborted. SIDE: LEFT PHYSICIAN: Jules Trivedi DO ESTIMATED BLOOD LOSS: None SPECIMENS AND DRAINS: None INDICATIONS FOR PROCEDURE: This is a 78 year old year old male with a clinical picture consistent with the above-mentioned diagnosis, resulting in radicular pain to the left lower extremity. PROCEDURE AND FINDINGS: The patient was greeted in the pre procedure holding area. The risk, benefits and alternatives to the procedure were again reviewed with the patient and written informed consent was placed in the chart. Prior to the procedure a time out was completed, verifying correct patient, procedure, site, positioning, and implants and/or special equipment. The patient was taken to the procedure room and positioned prone on the fluoroscopy table. Then a placement specialist film was taken to identify the correct level. The skin was prepped and draped in the usual sterile fashion. The overlying skin and subcutaneous tissue was anesthetized using a 25-gauge 1-1/2 inchneedle with 1% preservative-free lidocaine for a total volume of 2 mls. Then a 22-gauge 3.5 inch Quincke spinal needle was advanced under fluoroscopic guidance using an oblique view just inferior to the pedicle of the L4 and L5 vertebral body on left side. Despite multiple attempts at approach I was unable to access L4 epidural space due to combination of hardware, poor imaging of anatomy, autofusion, and spondylytic spurs. As such the L4 level was abandoned. The fluoroscopy view was changed to the AP and lateral views and the needle position was confirmed to be within the foramen. Then 1 mls of Omnipaque 180mg/ml dye was injected under AP view at each level without DSA to confirm adequate spread along the nerve root and in the epidural space. There was no evidence of intravascular uptake or intrathecal spread on imaging. At this point, 10 milligrams of dexamethasone was injected along with 2.0 mls of PFNS at the L5-S1 foramen. The needle was then flushed and removed. The needle insertion site was dressed appropriately. The patient was taken to the recovery room where he was monitored for a brief period of time. He tolerated the procedure well and was discharged home in stable condition with post procedural instructions. COMPLICATIONS: none documented in this encounter Plan of Treatment Upcoming Encounters Date Type Department Care Team (Late st Contact Info) Description 05/18/2024 11:00 AM EDT Office Visit Podiatry, [address] [address] Birgit Carr DPM [address] [place] [address] 06/01/2024 8:30 AM EDT Office Visit Interventional Pain Center, [address] [address] Hernando Cha CRNP [address] [place] [address] 06/01/2024 9:00 AM EDT Nurse Only Interventional Pain Center, [address] [place] [address] [facility], Nurse Pain Medicine [address] [place] [address] 06/13/2024 12:12 PM EST Hospital Encounter OR [facility], Operating Room, [facility] - 4th Floor [address] [place] [address] [place] [address] Daniela Knight MD [address] [place] [address] [place] [address] 06/13/2024 12:12 PM EST - 06/13/2024 1:22 PM EST Surgery OR [facility], Operating Room, [facility] - 4th Floor [facility] [place] [phone] Daniela Knight MD [address] [place] [address] PERCUTANEOUS LAMINOTOMY/LAMINECTO MY UNDER INDIRECT IMAGE GUIDANCE LUMBAR 07/27/2024 11:40 AM EST Office Visit Dermatology, Natan Irizarry [address] [place] [address] [place] [address] Linda Salinas PA-C [address] [place] [address] Scheduled Procedures Name Priority Associated Diagnoses Date/Ti me INJECTION TRANSFORAMINAL EPI DURAL LUMBAR OR SACRAL Lumbar radicular pain 05/05/2024 6:53 AM EDT INJECTION TRANSFORAMINAL EPI DURAL LUMBAR OR SACRAL ADDITIONAL Lumbar radicular pain 05/05/2024 6:53 AM EDT PERCUTANEOUS LAMINOTOMY/LAMI NECTOMY UNDER INDIRECT IMAGE GUIDANCE LUMBAR Spinal stenosis of lumbar region with neurogenic claudication 06/13/2024 12:12 PM EST ESOPHAGOGASTRODUODENOSCOPY ( EGD), FLEXIBLE, TRANSORAL, DIAGNOSTIC Recall Isidro's esophagus with esophagitis COLONOSCOPY FLEXIBLE PROXIMA L DIAGNOSTIC Recall Special screening for malignant neoplasms, colon Health Maintenance Due Date Last Done Comments Depression Screening 1957 Alpha-1 Antitrypsin 1964 Diabetic Eye Exam 1964 Diabetic Foot Exam 1964 Hepatitis C Screening 1963 HbA1c 02/26/2017 08/29/2016, 03/09, 01/25/2012 DTap/Tdap Vaccines (1 - Tdap) 02/05/2018 02/04/2018 Albumin/Creatinine Ratio 05/08/2023 05/08/2022 GFR 04/03/2024 04/03/2023, 04/11, 03/01/2021, Additional history exists COVID-19 Vaccine ( season) 2024 05/08/2022, 11/18/2021 Influenza Vaccine (FLU shot) (#1) 2024 06/11/2019 O2 ASSESSMENT COMPLETED IN PAST YEAR FOR COPD 05/05/2025 05/05/2024 Pneumococcal Vaccine: 65+ Years Completed 09/16/2018, 02/04/2018, 12/06/2007, Additional history exists Zoster Vaccines Completed 03/15/2019, 02/2019, 09/10/2009 Lung Cancer Screening Completed 04/03/2023 , 02/28/2021, 08/28/2016, Additional history exists HPV (Gardasil) Vaccine Aged Out No lo nger eligible based on patient's age to complete this topic Hepatitis B Vaccine Aged Out No longe r eligible based on patient's age to complete this topic MENINGOCOCCAL (MENACTRA/MENVEO) Aged Out No longer eligible based on patient's age to complete this topic documented as of this encounter Medical Devices Implanted Type Area Fuel House Attendant Device Identifier Shelf Expiration Date Model / Serial / Lot Sut Steel 6 M654g - [id number] Implanted:Qty: 4 on 12/14/2011 at OR [facility] [place] N/A: Chest DO NOT USE 09/08/2016 M654G / / [id number] Valve Heart Aortic Mag Eas 23m - [id number] Implanted:Qty: 1 on 12/14/2011 at OR [facility] [place] N/A: Heart LI [employer] JANET 06/23/2015 [id number] / [id number] / Sut Steel 6 M654g - [id number] Implanted:Qty: 3 on 12/15/2011 at OR [facility] [place] N/A: Chest DO NOT USE M654G / / documented as of this encounter Procedures Procedure Name Priority Date/Time Associated Diagnosis Comments FLUORO INTERVENTIONAL PAIN PROCEDURE NONBILLABLE Routine 05/05/2024 8:02 AM EDT GLUCOSE METER, POINT OF CARE [place] 05/05/2024 7:08 AM EDT documented in this encounter Results * FLUORO INTERVENTIONAL PAIN PROCEDURE NONBILLABLE (05/05/2024 8:02 AM EDT) Narrative Scheduling, Silent - 05/05/2024 8:03 AM EDT This procedure will not be read by a Radiologist. Please see operative note. Jules Trivedi DO RAD FLUOROSCOPY * (ABNORMAL) GLUCOSE METER, POINT OF CARE (05/05/2024 7:08 AM EDT) GLUCOSE - POCT 138(H) 70 - 120 mg/dL 05/05/2024 7:11 AM EDT [facility] 45-20 Blood Whole blood specimen / Unknown 05/05/2024 7:08 AM EDT 05/05/2024 7:11 AM EDT Jules Trivedi DO LAB POINT OF CARE TE ST DOCKED DEVICE UNSOLICITED RESULTS [facility] 45-[address] [place] [phone] documented in this encounter Active and Recently Administered Medications Times are shown in EDT. PRN Medication Order 05/03/2024 05/04/2024 05/05/2024 buffered lidocaine 1 % inj (CANCELED) ONCE PRN INTRA PROCEDURE, Starting on Wed05/05/24 at 0743, Until Wed05/05/24 at 0801, Intra-Op 0743 (Given - Provid er: Jules Trivedi DO) dexAMETHasone Sodium Phosphate 10 mg in NSS 4 mL inj (CANCELED) ONCE PRN INTRA PROCEDURE, Starting on 05/05/24 at 0743, Until Wed05/05/24 at 0801, Intra-Op 0743 (Given - Provid er: Jules Trivedi DO) Iopamidol (Isovue M 200) inj (CANCELED) ONCE PRN INTRA PROCEDURE, Starting on Wed05/05/24 at 0743, Until Wed05/05/24 at 0801, Intra-Op 0743 (Given - Provid er: Jules Trivedi DO) documented in this encounter Advance Directives * Full Code (Latest Code Status on File) Date Activated Date Inactivated Comments 08/28/2016 11:02 PM 08/29/2016 5:54 PM This order reflects the patients wishes and were consensually agreed upon. * Full Code Date Activated Date Inactivated Comments 12/14/2011 4:52 PM 12/22/2011 5:51 PM This order re flects the patients wishes and were consensually agreed upon. Care Teams Manager Call Relationship Specialty Start Date End Date Leandro Rodrigues MD [address] [facility] [place] [address] PCP - General Family Medicine 04/11/24 documented as of this encounter
--- OUTSIDE RECORDS SUMMARY | 2024-05-14 16:27 | External Medical Summary | Summary of Care ---
Author Name Unknown Organization [facility] Address [address] [place] [address] Phone [phone] Care Team Providers Care [employer] Counterperson Name Role Phone Leandro Rodrigues MD Primary Care Provider [phone] Encounter Details Date Type Department Care Team (Late st Contact Info) Description 04/20/2024 Orders Only Radiology, [facility] [address] [place] [address] Requisition, External Radiology [address] [place] [address] Pain in left hip* Allergies Active Allergy Reactions Criticality Noted Date [...] as of this encounter (statuses as of 04/20/2024) Medications Medication Sig Dispensed Refills Start Date End Date Status METOPROLOL TARTRATE 25 MG PO TABSIndications:Aorti c stenosis,Aortic valve disorders,INTERFACED RESULT,DM type 2 causing neurological disease (HCC),HTN, goal below 130/80,Coronary atherosclerosis of cahto coronary artery,COPD, mild (HCC),BPH (benign prostatic hyperplasia),TIA [...] Tablet (Abilify) 0.5 Tablets. 10/29/2023 A ctive Sagsfeu-Affguiddpjo-G ormoterol 160-9-4.8 MCG/ACT Inhalation Aerosol 2 times [...] as of this encounter (statuses as of 04/20/2024) Active Problems Problem Noted Date Diagnosed Date HTN, GOAL BELOW 140/80 03/28/2012 Overview: Per HTN Protocol #27. 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 documented as of this encounter (statuses as of 04/20/2024) Social History Tobacco Use Types Packs/Day Years Used Date Smoking Tobacco: Former Cigarettes 1 40 1 08/09/1970 - 06/09/2011 Smokeless Tobacco: Former Chew Quit: 08/09/2015 Comments:pt atates that he i s interested in tobacco cessation; awaiting [place] Alcohol Use Standard Drinks/Week Comments Not Currently [...] on file documented as of this encounter Functional Status Functional Status Response [...] (15 years old or older) No 08/28/19 Cognitive Status Response Date of Assessm ent Because of a physical, menta l, or emotional condition, do you have serious difficulty concentrating, remembering, or making decisions? (5 years old or older) No 08/28/2016 documented as of this encounter Plan of Treatment Upcoming Encounters Date Type Department Care Team (Late st Contact Info) Description 04/20/2024 3:15 PM EDT Imaging Radiology, [facility] [address] [place] [address] Arrived 05/05/2024 8:12 AM EDT Hospital Encounter OR [facility], Operating Room [facility] [address] [place] [address] [place] [phone] Jules Trivedi, DO [address] [facility] [place] [phone] 05/05/2024 8:12 AM EDT - 05/05/2024 8:38 AM EDT Surgery OR [facility], Operating Room [facility] [address] [place] [address] [place] [phone] Jules Trivedi, DO [address] [facility] [place] [phone] INJECTION TRANSFORAMINAL EPIDURAL LUMBAR OR SACRAL 05/18/2024 11:00 AM EDT Office [address]ry, [address] [address] Birgit Carr DPM 400 [place] [address] 06/01/2024 8:30 AM EDT Office Visit Interventional Pain Center, [address] [address] Hernando Cha CR[facility] [address] [facility] [address] 06/01/2024 9:00 AM EDT Nurse Only Interventional Pain Center, [address] [place] [address] [place], Nurse Pain Medicine [address] [place], [place] [address] [address] 06/13/2024 12:22 PM EST Hospital Encounter OR [facility], Operating Room, [facility] - 4th Floor [address] [place] [phone] Daniela Knight MD [address] [place] [address] 06/13/2024 12:22 PM EST - 06/13/2024 2:02 PM EST Surgery OR [facility], Operating Room, [facility] - 4th Floor [address] [place] [phone] Daniela Knight MD [address] [place] [address] PERCUTANEOUS LAMINOTOMY/LAMINECTOM Y UNDER INDIRECT IMAGE GUIDANCE LUMBAR 07/27/2024 11:40 AM EST Office Visit Dermatology, Natan Irizarry [address] [place] [address] [place] [address] Linda Salinas PA-C [address] [place] [address] Pending Results Name Type Priority Associated Diagnoses Date /Time XR HIP UNILAT 2-3 VIEWS INCLUDING AP PELVIS Medical Imaging Routine Pain in left hip 04/20/2024 2:47 PM EDT Scheduled Procedures Name Priority Associated Diagnoses Date/Ti me INJECTION TRANSFORAMINAL EPI DURAL LUMBAR OR SACRAL Lumbar radicular pain 05/05/2024 8:12 AM EDT INJECTION TRANSFORAMINAL EPI DURAL LUMBAR OR SACRAL ADDITIONAL Lumbar radicular pain 05/05/2024 8:12 AM EDT PERCUTANEOUS LAMINOTOMY/LAMI NECTOMY UNDER INDIRECT IMAGE GUIDANCE LUMBAR Spinal stenosis of lumbar region with neurogenic claudication 06/13/2024 12:22 PM EST ESOPHAGOGASTRODUODENOSCOPY ( EGD), FLEXIBLE, TRANSORAL, [...] ASSESSMENT COMPLETED IN PAST YEAR FOR COPD 04/11/2025 04/11/2024 Pneumococcal Vaccine: 65+ Years Completed 09/16/2018, 02/04/2018, [...] this encounter Medical Devices Implanted Type Area Fitter Placer Device Identifier Shelf Expiration Date Model / Serial / Lot Sut Steel 6 M654g - [id number] Implanted:Q[place] 4 on 12[place]14[place]2011 [place] [facility]: Chest DO NOT USE 09/08/2016 M654G / / [id number] Valve Heart Aortic Mag Eas 23m - [id number] Implanted:Qty: 1 on 12/14/2011 [place] [facility]/A: Heart LI [employer] JANET 06/23/2015 [id number] / [id number] / Sut Steel 6 M654g - [id number] Implanted:Qty: 3 on 12/15/2011 [place] [facility] [place]/A: Chest DO NOT USE M654G / / documented as of this encounter Visit Diagnoses Diagnosis Pain in left hip- Primary Pain in joint, pelvic region and thigh Lumbar radicular pain Thoracic or lumbosacral neuritis or radiculitis, unspecified Spinal stenosis of lumbar region with neurogenic claudication Spinal stenosis, lumbar region, with neurogenic claudication documented in this encounter Advance Directives * [...] and were consensually agreed upon. Care Teams Automotive Parts Counterperson Relationship Specialty Start Date End Date Leandro Rodrigues MD [address] [place] [address] PCP - General Family Medicine 04/11/24 documented as of this encounter
--- OUTSIDE RECORDS SUMMARY | 2024-05-14 16:27 | External Medical Summary | Summary of Care ---
Author Name Unknown Organization [facility] Address [address] [place] [address] Phone [phone] Care Team Providers Care Energy Scheduler Name Role Phone Leandro Rodrigues MD Primary Care Provider [phone] Reason for Visit * Reason Onset Date Comments Referral Requested by Specialist 04/19/2024 Podiatry Referral Request Encounter Details Date Type Department Care Team (Late st Contact Info) Description 04/19/2024 Telephone Podiatry, [facility] [address] [place] [address] Birgit Carr DPM [address] [place], [place] [phone] Referral Requested by Specialist (Podiatry... Allergies Active Allergy Reactions Criticality Noted Date [...] as of this encounter (statuses as of 04/19/2024) Medications Medication Sig Dispensed Refills Start Date End Date Status METOPROLOL TARTRATE 25 MG PO TABSIndications:Aorti c stenosis,Aortic valve disorders,INTERFACED RESULT,DM type 2 causing neurological disease (HCC),HTN, goal below 130/80,Coronary atherosclerosis of teller coronary artery,COPD, mild (HCC),BPH (benign prostatic hyperplasia),TIA [...] Tablet (Abilify) 0.5 Tablets. 10/29/2023 A ctive Vyviqmv-Oqkogxqcfvo-A ormoterol 160-9-4.8 MCG/ACT Inhalation Aerosol 2 times [...] as of this encounter (statuses as of 04/19/2024) Active Problems Problem Noted Date Diagnosed Date HTN, GOAL BELOW 140/80 03/28/2012 Overview: Per HTN Protocol #27. 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 documented as of this encounter (statuses as of 04/19/2024) Social History Tobacco Use Types Packs/Day Years Used Date Smoking Tobacco: Former Cigarettes 1 40 1 08/09/1970 - 06/09/2011 Smokeless Tobacco: Former Chew Quit: 08/09/2015 Comments:pt atates that he i s interested in tobacco cessation; awaiting NRT lozengers from [place] Alcohol Use Standard Drinks/Week Comments Not Currently [...] No 08/28/2016 documented as of this encounter Miscellaneous Notes * Telephone Encounter - Elaine Nick [facility] - 04/19/2024 11:20 AM EDT Podiatry referral request was faxed to PCP. documented in this encounter Plan of Treatment Upcoming Encounters Date Type Department Care Team (Late st Contact Info) Description 05/05/2024 8:12 AM EDT Hospital Encounter [facility], Operating Room [facility] [address] [place] [phone] Jules Trivedi, DO [address] [facility] [place] [phone] 05/05/2024 8:12 AM EDT - 05/05/2024 8:38 AM EDT Surgery OR [facility], [address] [place] [place] [address] Jules Trivedi DO [address] [facility] [place] [phone] INJECTION TRANSFORAMINAL EPIDURAL LUMBAR OR SACRAL 05/18/2024 11:00 AM EDT Office Visit Podiatry, [address] [address] Birgit Carr DPM [address] [facility] [address] 06/01/2024 8:30 AM EDT Office Visit Interventional Pain Center, [address] [place] [address] Hernando Cha CRNP 400 [facility] [address] 06/01/2024 9:00 AM EDT Nurse Only Interventional Pain Center, [facility] 400 [facility] [place] [address] [facility], Nurse Pain Medicine [address] [place] [address] [place] [address] 06/13/2024 12:22 PM EST Hospital Encounter OR [facility], Operating Room, [facility] - 4th Floor 400 [facility] [place] [phone] Daniela Knight MD 16 [place] [address] 06/13/2024 12:22 PM EST - 06/13/2024 2:02 PM EST Surgery OR [facility], Operating Room, [facility] - 4th Floor 400 [facility] [place] [phone] Daniela Knight MD [address] [place] [address] PERCUTANEOUS LAMINOTOMY/LAMINECTOM Y UNDER INDIRECT IMAGE GUIDANCE LUMBAR 07/27/2024 11:40 AM EST Office Visit Dermatology, Natan Irizarry [address] [place] [address] [place] [address] Linda Salinas PA-C [address] [place] [address] Scheduled Procedures Name Priority Associated Diagnoses Date/Ti [...] DTap/Tdap Vaccines (1 - Tdap) 02/05/2018 02/04/2018 Zoster Vaccines (3 of 3) 11/10/2018 09/15/2018, 09/2009 Albumin/Creatinine Ratio 05/08/2023 05/08/2022 GFR 04/03/2024 04/03/2023, 04/11, 03/01/2021, Additional history exists COVID-19 Vaccine ( season) 2024 05/08/2022, 11/18/2021 Influenza Vaccine (FLU shot) (#1) 2024 06/11/2019 O2 ASSESSMENT COMPLETED IN PAST YEAR FOR COPD 04/11/2025 04/11/2024 Pneumococcal Vaccine: 65+ Years Completed 09/16/2018, 02/04/2018, 12/06/2007, Additional history exists Lung Cancer Screening Completed 04/03/2023 , 02/28/2021, [...] this encounter Medical Devices Implanted Type Area Sprinkler Worker Device Identifier Shelf Expiration Date Model / Serial / Lot Sut Steel 6 M654g - [id number] Implanted:Qty: 4 on 12/14/2011 [place] [facility] [place]: Chest DO NOT USE 09/08/2016 M654G / / [id number] Valve Heart Aortic Mag Eas 23m - [id number] Implanted:Qty: 1 on 12/14/2011 at [place] [facility] [place]/A: Heart LI [employer] 06/23/2015 [id number] / [id number] / Sut Steel 6 M654g - [id number] Implanted:Qty: 3 on 12/15/2011 at [place] [facility] [place] N/A: Chest DO NOT USE M654G / / documented as of this encounter Advance Directives * Full Code (Latest Code Status on File) Date Activated Date Inactivated Comments 08/28/2016 11:02 PM 08/29/2016 5:54 PM This order reflects the patients wishes and were consensually agreed upon. * Full Code Date Activated Date Inactivated Comments 12/14/2011 4:52 PM 12/22/2011 5:51 PM This order re flects the patients wishes and were consensually agreed upon. Care Teams Energy Scheduler Relationship Specialty Start Date End Date Leandro Rodrigues MD 96 [facility] [place] [address] PCP - General Family Medicine 04/11/24 documented as of this encounter
--- OUTSIDE RECORDS SUMMARY | 2024-05-14 16:27 | External Medical Summary | Summary of Care ---
Author Name Unknown Organization [facility] Address [address] [place] [address] Phone [phone] Care Team Providers Care Barytes Grinder Name Role Phone Leandro Rodrigues MD Primary Care Provider [phone] Reason for Visit * Reason Onset Date Comments Medication Management 04/27/2024 Coag hold approval Encounter Details Date Type Department Care Team (Late st Contact Info) Description 04/27/2024 Telephone Interventional [facility], [address] [phone] Shereen Bowens, sterilizer machine operator Management (Coag hold approval) Allergies Active Allergy Reactions Criticality Noted Date [...] as of this encounter (statuses as of 04/27/2024) Medications Medication Sig Dispensed Refills Start Date End Date Status METOPROLOL TARTRATE 25 MG PO TABSIndications:Aorti c stenosis,Aortic valve disorders,INTERFACED RESULT,DM type 2 causing neurological disease (HCC),HTN, goal below 130/80,Coronary atherosclerosis of [place] coronary artery,COPD, mild (HCC),BPH (benign prostatic hyperplasia),TIA [...] Tablet (Abilify) 0.5 Tablets. 10/29/2023 A ctive Zrnismk-Kvnxhlnqtmh-S ormoterol 160-9-4.8 MCG/ACT Inhalation Aerosol 2 times [...] as of this encounter (statuses as of 04/27/2024) Active Problems Problem Noted Date Diagnosed Date HTN, GOAL BELOW 140/80 03/28/2012 Overview: Per HTN Protocol #27. 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 documented as of this encounter (statuses as of 04/27/2024) Social History Tobacco Use Types Packs/Day Years [...] encounter Miscellaneous Notes * Telephone Encounter - Shereen Bowens RN - 04/27/2024 2:34 PM EDT Coag hold approval received for Left TFESI L4-5, L5-S1 scheduled 05/05/24. Plavix 7 day hold. Last dose 04/27/24. Continue ASA 81mg. Pt aware and understanding verbalized. documented in this encounter Plan of Treatment Upcoming Encounters Date Type Department Care Team (Late st Contact Info) Description 05/05/2024 8:12 AM EDT Hospital Encounter [facility], Operating Room [facility] [address] [place] [phone] Jules Trivedi, DO [address] [facility] [place] [phone] 05/05/2024 8:12 AM EDT - 05/05/2024 8:38 AM EDT Surgery OR [facility], Operating [place] [address] [place] [address] Jules Trivedi DO [address] [facility] [place] [phone] INJECTION TRANSFORAMINAL EPIDURAL LUMBAR OR SACRAL 05/18/2024 11:00 AM EDT Office [address]ry, [address] [place] [address] Birgit Carr DPM [address] [facility] [address] 06/01/2024 8:30 AM EDT Office Visit [facility], [address] [place] [address] Hernando Cha CRNP [address] [facility] [address] 06/01/2024 9:00 AM EDT Nurse Only Interventional Pain Center, [facility] [address] [facility] [place] [address] [facility] [place], Nurse Pain Medicine [address] [facility] [place] [address] 06/13/2024 12:22 PM EST Hospital Encounter OR [facility], Operating Room, [facility] - 4th Floor [address] [facility] [place] [phone] Daniela Knight MD [address] [place] [address] 06/13/2024 12:22 PM EST - 06/13/2024 2:02 PM EST Surgery OR [facility], Operating Room, [facility] - 4th Floor [address] [facility] [place] [phone] Daniela Knight MD [address] [place] [address] PERCUTANEOUS LAMINOTOMY/LAMINECTOM Y UNDER INDIRECT IMAGE GUIDANCE LUMBAR 07/27/2024 11:40 AM EST Office Visit Dermatology, Natan Irizarry [address] [place] [address] Linda Salinas PA-C [address] [place] [address] Scheduled Procedures Name Priority Associated Diagnoses Date/Ti [...] 03/01/2021, Additional history exists COVID-19 Vaccine ( - 2023- season) 2024 05/08/2022, 11/18/2021 Influenza Vaccine (FLU [...] this encounter Medical Devices Implanted Type Area Cloth Booker Device Identifier Shelf Expiration Date Model / Serial / Lot Rosamaria Jacobs 6 M654g - [id number] Implanted:Qty: 4 on 12/14/2011 at OR [facility] [place] [place] N/A: Chest DO NOT USE 09/08/2016 M654G / / [id number] Valve Heart Aortic Mag Eas 23m - [id number] Implanted:Qty: 1 on 12/14/2011 at OR [facility] [place] [place] N/A: Heart LI [employer] JANET 06/23/2015 [id number] / [id number] / Sut Steel 6 M654g - [id number] Implanted:Qty: 3 on 12/15/2011 at OR [facility] [place] [place] N/A: Chest DO NOT USE M654G / [...] and were consensually agreed upon. Care Teams Barytes Grinder Relationship Specialty Start Date End Date Leandro Rodrigues MD 96 [facility] [place] [address] PCP - General Family Medicine 04/11/24 documented as of this encounter
--- OUTSIDE RECORDS SUMMARY | 2024-05-14 16:27 | External Medical Summary | Summary of Care ---
Author Name Unknown Organization [facility] Address [address] [place] [address] Phone [phone] Care Team Providers Care Butcher Meat Name Role Phone Leandro Rodrigues MD Primary Care Provider [phone] Encounter Details Date Type Department Care Team (Late st Contact Info) Description 04/20/2024 Orders Only Radiology, [place] [address] [place] [address] Requisition, External Radiology [address] [place] [address] Low back pain, unspecified*; Right hip pain Allergies Active Allergy Reactions Criticality Noted Date [...] tablet daily Active EPIPEN 0.3 MG/0.3ML IJ ERD Inject as directed. Active Hydrocortisone 2.5 % [...] Tablet (Abilify) 0.5 Tablets. 10/29/2023 A ctive Lpgtbsg-Wwpkfnttsva-U ormoterol 160-9-4.8 MCG/ACT Inhalation Aerosol 2 times [...] Encounter OR [facility], Operating Room [facility] [address] [place], [place] [address] Jules Trivedi, [facility] [place] [phone] 05/05/2024 8:12 AM EDT - 05/05/2024 8:38 AM EDT Surgery OR [facility], Operating Room [facility] [address] [place] [address] [place] [phone] Jules Trivedi, [address] [facility] [phone] INJECTION TRANSFORAMINAL EPIDURAL LUMBAR OR SACRAL 05/18/2024 11:00 AM EDT Office Visit Podiatry, [address] [place] [address] Birgit Carr DPM 400 [place] [address] 06/01/2024 8:30 AM EDT Office Visit Interventional Pain Center, [address] [place] [address] Hernando Cha CRNP 400 [facility] [place] [address] 06/01/2024 9:00 AM EDT Nurse Only Interventional Pain Center, [address] [address] [facility], Nurse Pain Medicine [address] [place] [address] [place] [address] 06/13/2024 12:22 PM EST Hospital Encounter OR [facility], Operating Room, [facility] - 4th Floor [address] [place] [address] [place] [phone] Daniela Knight MD [address] [place] [address] 06/13/2024 12:22 PM EST - 06/13/2024 2:02 PM EST Surgery OR [facility], Operating Room, [facility] - 4th Floor [address] [place] [phone] Daniela Knight MD [address] [place] [address] PERCUTANEOUS LAMINOTOMY/LAMINECTOM Y UNDER INDIRECT IMAGE GUIDANCE LUMBAR 07/27/2024 11:40 AM EST Office Visit Dermatology, Natan Irizarry [address] [place] [address] [place] [address] Linda Salinas PA-C [address] [place] [address] Scheduled Orders Name Type Priority Associated Diagnoses Orde r Schedule XR L SPINE COMPLETE Medical Imaging Routine Low back pain, unspecified Right hip pain Ordered: 04/20/2024 XR HIP BILAT 2 VIEWS INCLUDING AP OF PELVIS Medical Imaging Routine Low back pain, unspecified Right hip pain Ordered: 04/20/2024 Scheduled Procedures Name Priority Associated Diagnoses Date/Ti [...] this encounter Medical Devices Implanted Type Area Silo Filler Device Identifier Shelf Expiration Date Model / Serial / Lot Sut Steel 6 M654g - [id number] Implanted:Qty: 4 on 12/14/2011 at OR [facility] [place] N/A: Chest DO NOT USE 09/08/2016 M654G / / [id number] Valve Heart Aortic Mag Eas 23m - [id number] Implanted:Qty: 1 on 12/14/2011 at OR [facility] [place] N/A: Heart LI [employer] JANET 06/23/2015 [id number] / [id number] / Sut Steel 6 M654g - [id number] Implanted:Qty: 3 on 12/15/2011 at OR [facility] [place] N/A: Chest DO NOT USE M654G / / documented as of this encounter Visit Diagnoses Diagnosis Low back pain, unspecified- Primary Right hip pain Pain in joint, pelvic region and thigh [...] and were consensually agreed upon. Care Teams Butcher Meat Relationship Specialty Start Date End Date Leandro Rodrigues MD 96 [place] [address] PCP - General Family Medicine 04/11/24 documented as of this encounter
--- OUTSIDE RECORDS SUMMARY | 2024-05-14 16:27 | External Medical Summary | Summary of Care ---
Author Name Unknown Organization [facility] Address [address] [place] [address] Phone [phone] Care Team Providers Care Egg Breaking Machine Operator Name Role Phone Leandro Rodrigues MD Primary Care Provider Encounter Details Date Type Department Care Team (Late st Contact Info) Description 04/20/2024 Orders Only Radiology, [place] [address] [place] [address] Requisition, External Radiology [address] [place] [address] Low back pain, unspecified*; Pain of right hip Allergies Active Allergy Reactions Criticality Noted Date [...] disease (HCC),HTN, goal below 130/80,Coronary atherosclerosis of [place] coronary artery,COPD, mild (HCC),BPH (benign prostatic hyperplasia),TIA [...] Tablet (Abilify) 0.5 Tablets. 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 0 12/23/2011 Overview: ICD-10 update of inactive term AVB (atrioventricular block) 12/22/2011 Cardiac pacemaker in situ 12/22/2011 Aortic stenosis 12/14/2011 Overview: Severe stenosis Aortic root dilatation 12/14/2011 Bicuspid aortic valve 12/14/2011 PTSD (post-traumatic stress disorder) 12/14/2011 BPH (benign prostatic hyperplasia) 12/14/2011 DM type 2 causing neurological disease 2 Coronary atherosclerosis of [place] coronary eusebio ry 12/14/2011 Overview: Has 3 [...] Description 04/20/2024 3:15 PM EDT Imaging Radiology, [place] [address] [place] [id number] Arrived 05/05/2024 8:12 AM EDT Hospital Encounter OR [facility], Operating Room [facility] [address] [place] [address] [place] [phone] Jules Trivedi, DO [address] [facility] [place] [phone] 05/05/2024 8:12 AM EDT - 05/05/2024 8:38 AM EDT Surgery OR [facility], Operating Room [facility] [address] [place] [address] [place] [phone] Jules Trivedi, DO [address] [facility] [place] [phone] INJECTION TRANSFORAMINAL EPIDURAL LUMBAR OR SACRAL 05/18/2024 11:00 AM EDT Office Visit Podiatry, [address] [address] Birgit Carr DPM [address] [facility] [address] 06/01/2024 8:30 AM EDT Office Visit Interventional Pain Center, [address] [address] Hernando Cha CRNP [address] [facility] [address] 06/01/2024 9:00 AM EDT Nurse Only Interventional Pain Center, [address] [address] [place], Nurse Pain Medicine [address] [place], [place] [address] 06/13/2024 12:22 PM EST Hospital Encounter OR [facility], Operating Room, [facility] - 4th Floor [address] [place] [phone] Daniela Knight MD [address] [place] [address] 06/13/2024 12:22 PM EST - 06/13/2024 2:02 PM EST Surgery OR [facility], Operating Room, [facility] - 4th Floor [address] [place] [phone] Daniela Knight MD [address] [place] [phone] PERCUTANEOUS LAMINOTOMY/LAMINECTOM Y UNDER INDIRECT IMAGE GUIDANCE LUMBAR 07/27/2024 11:40 AM EST Office Visit Dermatology, Natan Irizarry [address] [place] [address] [place] [address] Linda Salinas PA-C [address] [place] [phone] Pending Results Name Type Priority Associated Diagnoses Date /Time XR L SPINE AP AND LATERAL Medical Imaging Routine Low back pain, unspecified Pain of right hip 04/20/2024 2:56 PM EDT Scheduled Procedures Name Priority Associated [...] this encounter Medical Devices Implanted Type Area Mortgage Loan Processor Device Identifier Shelf Expiration Date Model / Serial / Lot Sut Steel 6 M654g - [id number] Implanted:Qty: 4 on 12/14/2011 at [place] [facility] [place] N/A: Chest DO NOT USE 09/08/2016 M654G / / [id number] Valve Heart Aortic Mag Eas 23m - [id number] Implanted:Qty: 1 on 12/14/2011 at OR [facility] [place] N/A: Heart LI [employer] JANET 06/23/2015 [id number] / [id number] / Sut Steel 6 M654g - [id number] Implanted:Qty: 3 on 12/15/2011 at [place] [facility] [place] N/A: Chest DO NOT USE M654G / / documented as of this encounter Visit Diagnoses Diagnosis Low back pain, unspecified- Primary Pain of right hip Lumbar radicular pain Thoracic or lumbosacral neuritis [...] and were consensually agreed upon. Care Teams Egg Breaking Machine Operator Relationship Specialty Start Date End Date Leandro Rodrigues MD [facility] [place] [address] PCP - General Family Medicine 04/11/24 documented as of this encounter
[2024-05-14] MEDS: ONDANSETRON INJ 2 MG/ML 2 ML VIAL IV STA (17:34)
[2024-05-14] MEDS: MoRPHine SULFATE 4 MG/ML 1 ML CARP\\VIAL IV STA (17:35)
[2024-05-14 18:12] LABS: Basophils # (auto) 0.07 K/uL (0.00-0.20); Basophils % (auto) 0.6 %; Eosinophils # (auto) 0.13 K/uL (0.00-0.50); Eosinophils % (auto) 1.1 %; Hematocrit (blood only) 29.1 % (42.0-52.0); Hemoglobin 9.4 g/dl (14.0-18.0); Immature Granulocytes # (auto) 0.05 K/uL (0.01-0.20); Immature Granulocytes % (auto) 0.4 %; Lymphocytes # (auto) 1.44 K/uL (1.20-3.40); Lymphocytes % (auto) 12.3 %; Mean Corpuscular Hgb Conc 32.3 g/dL (32.0-36.0); Mean Platelet Volume 11.9 fL (9.4-12.4); Monocytes # (auto) 0.74 K/uL (0.11-0.59); Monocytes % (auto) 6.3 %; Neutrophils # (auto) 9.31 K/uL (1.40-6.50); Neutrophils % (auto) 79.3 %; Platelet Count 279 K/uL (130-400); RDW Coefficient of Variation 21.6 % (11.5-14.5); RDW Standard Deviation 73.8 fL (36.4-46.3); Red Blood Count 3.13 M/uL (4.70-6.10); White Blood Count 11.74 K/ul (4.8-10.8)
[2024-05-14 18:30] LABS: Albumin Globulin Ratio 1.4 (0.9-2); Albumin Level 4.4 gm/dl (3.4-5.0); BUN Creatinine Ratio 19.2 (10-20); Bilirubin,Total 2.1 mg/dl (0.2-1.0); Creatinine Clr Calc Pharmacy 51.6 ml/min; Globulin 3.1 gm/dl (2.5-4.0); Potassium 5.3 mmol/L (3.5-5.1); Total Protein 7.5 gm/dl (6.0-8.3)
[2024-05-14 18:40] LABS: Basophilic Stippling Occasional
--- NOTE | 2024-05-14 19:31 | CT Scan Report ---
CT SCAN OF THE LUMBAR SPINE WITHOUT IV CONTRAST CLINICAL HISTORY: Low back pain. Radiculopathy. COMPARISON STUDY: MRI of the lumbar spine dated 10/27/2023. CT scan of the lumbar spine dated 07/21/20. TECHNIQUE: CT scan of the lumbar spine is performed from the lower thoracic spine to the sacrum. Imag es are reviewed in the axial, sagittal, and coronal planes. IV contrast was not administered for this examination. A dose lowering technique was utilized adhering to the principles of ALARA. There is st reak artifact from metallic spinal hardware. CT DOSE: 1045. mGy.cm FINDINGS: The skeletal structures are osteopenic. There is no evidence of acute fracture or malalignm ent. Vertebral body height and alignment are maintained throughout the lumbar spine. Large anterior a nd lateral marginal osteophytes are seen throughout. There is postsurgical change from laminectomy an d posterior fusion seen at L2-L4. Interpedicular screws are present at all levels. The orthopedic garry dware appears intact. Lucency around the interpedicular screws in L2 suggests loosening. Both of the screws within the body of L2 appear to extend through the superior endplate. A left pedicular fractur e of L2 is likely chronic. The transverse processes are grossly intact. No lytic or blastic lesion is seen. There has been discectomy at L2-L3. Severe disc space narrowing is seen at L3-L4 and L4-L5. On ly mild disc space narrowing is seen at the remaining lumbar levels. Posterior disc osteophyte comple xes are seen at all lumbar levels. There is at least mild central canal stenosis at L5-S1. There is a large left lateral disc bulge at L4-L5 and large bilateral disc bulges at L5-S1. This contributes to subarticular and neural foraminal stenosis at these levels. The visualized sacrum and bony pelvis ap pear intact. The paraspinous soft tissues are normal as imaged. There is advanced atherosclerotic danelle cification of the abdominal aorta, which is normal in caliber. There is a 2.5 cm left renal cyst. IMPRESSION: 1. No acute bony abnormality is seen involving the lumbar spine. 2. A left pedicular fracture of L2 is likely chronic. 3. Postsurgical and spondylotic change as above. Lucency around the interpedicular screws in L2 sugge sts loosening. 4. Additional findings as above. ACT 112: Negative or not required by law. Electronically signed by: Leandro Napier M.D. 05/14/2024 7:29 PM
--- NOTE | 2024-05-14 20:37 | History & Physical Report ---
Date of Service May 14, 2024 Assessment & Plan (1) Left lumbar radiculopathy: Plan: 78yo male presenting with acute on chronic back pain with left sided radiculopathy. Patient reports several months of progressive symptoms with acute worsening over the last several days. Limiting to his daily life - patient having difficulty getting up from a chair and walking in his home. No fall, trauma or fevers. He did have a recent injection performed at [facility] in [place] -Admit to medical -Tylenol 1gm po TID scheduled -Heat to back as needed -Consult [facility] - patient is known to Dr. Brown. Of note, MRI ordered in ER, however, not able to be performed until tomorrow due to patient's pacemaker. 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 Last MpjP8O=9.4 on 04/13/24. Patient on Metformin and Glimepiride at home as well as Lantus 20u daily -Hold oral agents -Lantus 7u BID -ISS -Goal blood sugar 110 - 140 -Patient had a well check on 04/18/24 with his PCP and was instructed to actively titrate his Lantus dosing based on AM sugars. He is currently taking 20u daily Plan Chronic Medical Conditions: Hyperlipidemia - chronic/stable -Continue Atorvastatin 40mg po qHS Anxiety - chronic/stable -Continue Buspirone 30mg po TID - of note, this amount exceeds recommended dosing for Buspirone. Dose confirmed on patient's portal -Continue home Duloxetine Dementia - chronic/stable -Continue Aricept and Namenda -Frequent orientation and delirium prevention strategies -Avoid potential delirium inducing agents where able CAD - chronic/stable. No report of chest pain -Continue Carvedilol -Continue Atorvastatin -HOLDING PLAVIX FOR NOW IN EVENT OF SURGERY BPH - chronic/stable -Continue Finasteride and Flomax -Bladder scan as needed GERD - chronic/stable -Continue Protonix 40mg po BID COPD - no cough/SOB/wheeze -Continue Symbicort and Albuterol PTSD - patient follows at the [place] with Dr. [place] -Continue Lamictal -Continue Duloxetine History of Present Illness Chief Complaint: acute on chronic back pain with left sided radicular symptoms. Primary Care Provider: Leandro Rodrigues MD Chencho Wright is a pleasant 78yo male with history of DM, HTN, HLP, CAD, COPD, Dementia and PAD presenting from home with acute on chronic back pain now with worsening left sided radiuculopathy. Patient reports longstanding history of back pain. Patient with history of lumbar decompression L2-L3, L3-L4 with removal of herniated free fragments from L2-L3 performed by Dr. Brown on 05/10/20. He had recurrence of pain shortly following the surgery and returned to the OR on 07/25/20 for revision and fusion. Patient with chronic, ongoing back pain. He now follows with pain management. He had an epidural steroid infection L5-S1 on 03/06/24 at [facility] with good response x 2 weeks. He was seen again by Pain Management in [place] last week and had 2 injections. Patient has had progressive worsening of his lumbar pain over the last two months with acute worsening over the last 2-3 days. He reports pain mainly on the left side with radiation down his left thigh - anterior and posterior, into the leg. He reports weakness of his leg and inability to walk. He reports that he has not been very active or mobile for the last several years and spends a lot of his time in a recliner chair. Over the last 2-3 days he has not been able to get out of his chair due to pain. Patient denies falls or trauma, no changes in bowel or bladder continence. no fever, chills, abdominal pain, chest pain, cough or SOB. No additional complaints at this time. In the ER he is afebrile, HD stable and NAD ER course: Zofran 4mg IV Morphine 4mg IV x 2 Glargine 7u Aspart 3u Allergies Allergy/AdvReac Type Severity Reaction Status Date / Time bee venom protein (honey bee) Allergy Severe SWELLING Verified 04/18/24 13:01 Sulfa (Sulfonamide Allergy Intermediate "SULFA": Verified 04/18/24 13:01 Antibiotics) RASH Penicillins Allergy Unknown UNKNOWN Verified 04/18/24 13:01 lisinopril Allergy unknown Verified 04/18/24 13:01 reaction codeine AdvReac Intermediate HALLUCINATI Verified 04/18/24 13:01 NG meloxicam AdvReac renal Verified 04/18/24 13:01 failure Home Medications Medication Instructions Recorded Confirmed Type epinephrine 0.3 mg/0.3 mL 0.3 mg IM Q3H PRN Allergy Symptoms 10/21/18 05/14/24 History injection, auto-injector (EpiPen) finasteride 5 mg tablet 5 mg PO QAM 10/21/18 05/14/24 History atorvastatin 40 mg tablet (Lipitor) 40 mg PO HS 10/22/18 05/14/24 History donepezil 10 mg tablet 10 mg PO QAM 10/22/18 05/14/24 History lamotrigine 200 mg tablet 200 mg PO HS 10/22/18 05/14/24 History acetaminophen 500 mg tablet 1,000 mg PO TID PRN Pain 03/18/20 05/14/24 History (Tylenol Extra Strength) buspirone 30 mg tablet 30 mg PO TID 07/21/20 05/14/24 History nitroglycerin 0.4 mg sublingual 0.4 mg sublingual Q5M PRN Chest 08/21/20 05/14/24 Rx tablet (Nitrostat) Pain #30 tabs memantine 5 mg tablet 5 mg PO BID #180 tabs 11/05/21 05/14/24 Rx cetirizine 10 mg tablet 10 mg PO DAILY PRN allergy 11/18/21 05/14/24 Rx symptoms #30 tabs ondansetron HCl 8 mg tablet 8 mg PO Q12H PRN nausea and 01/12/22 05/14/24 Rx vomiting #20 tabs hydrocortisone 2.5 % topical 1 applic topical HS PRN Itching 03/12/22 05/14/24 Rx ointment #28.35 grams clopidogrel 75 mg tablet 75 mg PO HS 08/16/23 05/14/24 History gabapentin 300 mg capsule 600 mg PO TID 01/25/24 05/14/24 History albuterol sulfate 90 mcg/actuation 2 puff inhalation Q4H PRN 03/21/24 05/14/24 History aerosol inhaler Shortness Of Breath Or Wheezing alfuzosin 10 mg tablet,extended 10 mg PO HS 03/21/24 05/14/24 History release 24 hr budesonide 160 mcg-glycopyr 9 2 inh inhalation QAM 03/21/24 05/14/24 History mcg-formot 4.8 mcg/actuation HFA inhaler (Breztri Aerosphere) carvedilol 3.125 mg tablet 3.125 mg PO BID 03/21/24 05/14/24 History mupirocin 2 % topical ointment 1 applic topical TID #15 grams 03/23/24 05/14/24 Rx peg 3350-electrolytes 236 240 ml PO Q10M #4,000 mL 04/04/24 04/18/24 Rx gram-22.74 gram-6.74 gram-5.86 gram solution (GaviLyte-G) diclofenac sodium 1 % topical gel 2 g topical QID PRN foot pain 04/05/24 05/14/24 History dorzolamide (PF) 2 % (PF) eye drops 1 drp ophthalmic (eye) HS 04/05/24 05/14/24 History glimepiride 1 mg tablet 1 mg PO UD 04/05/24 05/14/24 History insulin glargine 100 unit/mL (3 18 - 24 unit subcut BID 04/05/24 05/14/24 History mL) subcutaneous pen (Lantus Solostar U-100 Insulin) timolol maleate (PF) 0.5 % eye 1 drp ophthalmic (eye) HS 04/05/24 05/14/24 History drops in a dropperette pantoprazole 40 mg tablet,delayed 40 mg PO BID #60 tabs 04/16/24 05/14/24 Rx release duloxetine 60 mg capsule,delayed 60 mg PO BID #180 caps 04/23/24 05/14/24 Rx release transport wheel chair #1 ea 05/03/24 Rx Past Med/Surg History Problem List Left lumbar radiculopathy (Acute) Actinic keratoses History of pulmonary embolism Hip pain, right Low back pain Heme positive stool Anemia (Acute) Cellulitis of leg, right (Acute) BPH w urinary obs/LUTS Ankle edema Anemia Neuropathic pain Peripheral arterial disease Lumbosacral radiculopathy at S1 Right foot pain Encounter for pre-operative examination Hyperproteinemia Orthostatic hypotension Olecranon bursitis, right elbow resolved Lightheadedness resolved Colon cancer screening Changing skin lesion removed from hand Scattered rhonchi of right lung Chronic low back pain Chronic anemia Diarrhea ongoing Medicare annual wellness visit, subsequent Olecranon bursitis, left elbow resolved Folate deficiency Vitamin B 12 deficiency Nonallergic rhinitis Allergic rhinitis Hyperkalemia Cervicalgia Paraproteinemia Chronic low back pain Proteinuria Nocturnal enuresis 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 Biventricular cardiac pacemaker in situ Stage 3b chronic kidney disease Chronic anemia Syncope and collapse happened once in 2020 Dementia Dyspnea on exertion Cardiomyopathy CAD, multiple vessel S/P coronary artery stent placement ~2001, SOB w/chest tightness, [facility], x2 stents; 2002, SOB w/chest tightness, [place], x2; 2003, SOB w/chest tightness, [place], x1 stent; 2004, SOB w/chest tightness, [place], x1 stent; 2009, SOB w/chest tightness, [place], x2 stents; 2011, SOB w/chest tightness, [place] [facility], x1 stent; 2013, SOB w/chest tightness, x2 stents, [place]; 2015, SOB w/chest tightness, [place], x1 stent; 2017, SOB w/chest tightness, x2 stents; 2019, SOB w/chest tightness, [facility], x4 stents; f/u dr. segura Squamous cell skin cancer Aneurysm of ascending aorta (Acute) monitoring currently; [place] [facility] [place]hma with COPD (Acute) daily inh and prn inhaler Carotid artery stenosis (Acute) Generalized anxiety disorder (Acute) History of TIA (transient ischemic attack) (Acute) Hyperlipidemia (Acute) Benign essential hypertension (Acute) Myelodysplastic syndrome (Acute) PTSD (post-traumatic stress disorder) (Acute) S/P aortic valve replacement with bioprosthetic valve (Acute) S/P laparoscopic cholecystectomy (Acute) Depression BPH (benign prostatic hyperplasia) COPD (chronic obstructive pulmonary disease) CKD (chronic kidney disease) (Acute) unsure of stage Pacemaker 2011, Placed after AVR due to complete heart block, [place] [facility]; [employer] Medical History Acute alteration in mental status Foreign body of right heel Syncope and collapse happened once in 2020 Hx of squamous cell carcinoma Pulmonary embolism per "he never had one, thinks they ruled this out at one point in time" PTSD (post-traumatic stress disorder) PAD (peripheral artery disease) Orthostatic hypotension happens sometimes Myelodysplasia (myelodysplastic syndrome) Hip pain, left ongoing, radiates down to foot Lumbosacral radiculopathy at S1 Hyperlipidemia Generalized anxiety disorder Diabetes mellitus, type 2 per "not well controlled" Depression CKD (chronic kidney disease) unsure of stage Chronic low back pain Chronic anemia Cervicalgia hx, no current issues Neuropathy Carotid artery stenosis Cardiomyopathy Biventricular cardiac pacemaker in situ Asthma with COPD daily and prn inh Ascending aortic aneurysm monitoring currently; f/[place] dr[place] [facility] [place] Hx-TIA (transient ischemic attack) 2019, slurred speech and confusion, brought to [facility]>no residual symtoms History of COVID-19 2019, tested thru PCP, not hosp; mild symptoms-diarrhea, cold symptoms>resolved Chronic bronchitis Leukocytosis hx CARTER (dyspnea on exertion) chronic Bicuspid aortic valve replaced with bioprosthetic valve Dementia "mild" BPH (benign prostatic hyperplasia) HTN (hypertension), benign CAD (coronary artery disease) Myocardial infarction 2011, SOB w/chest tightness and pain into shoulder and jaw, [facility], had cardiac cath w/2 stents Surgical History Hx of squamous cell carcinoma excision hand S/P cardiac pacemaker procedure History of back surgery x2, 05/10/2020 Grade 2 view with Mac 3 blade; both lower back History of tonsillectomy History of repair of rotator cuff right S/P right knee surgery H/O endoscopic retrograde cholangiopancreatography History of colonoscopy Hx of cholecystectomy H/O cardiac catheterization ~2001, SOB w/chest tightness, [facility], x2 stents; 2003, SOB w/chest tightness, [place], x2; 2004, SOB w/chest tightness, [place], x1 stent; 2004, SOB w/chest tightness, [place], x1 stent; 2009, SOB w/chest tightness, [place], x2 stents; 2011, SOB w/chest tightness, [facility], x1 stent; 2013, SOB w/chest tightness, x2 stents, [place]; 2016, SOB w/chest tightness, [place], x1 stent; 2017, SOB w/chest tightness, x2 stents; 2019, SOB w/chest tightness, [facility], x4 stents; f/u S/P aortic valve replacement 2012, [facility]; f/u dr. segura Family History Sister Anxiety Brother Alcohol abuse Father Cardiac disorder Myocardial infarction Mother Depression Kidney disease Lung disease Stroke Other Family history non-contributory Denies family history of Ovarian cancer Prostate cancer Breast cancer Colorectal cancer Social History Smoking Status: Current some day smoker Tobacco Type: Cigarettes and Smokeless Tobacco (Dip or Chew) Age Quit Using Tobacco: 64; Cigarettes Per Day: maybe 5-10 cigarettes per month; Second Hand Exposure: No; Do You Dip or Chew Tobacco: Yes; Hx Alcohol Use: Yes Alcohol type: beer and hard liquor Hx Substance Use: No Preferred Language: Citizen Of [place] Communication Ability: Effective Visual Impairment: Limited Hearing Ability: Use of Hearing Aid Ground Products Director Required: No Beliefs That Will Affect Care: None marital status: Current Living Situation: Spouse Current Living Situation Comment: House Other Information That Helps Us Care for You: No Feels Safe at Home: Yes Safety Concerns: Feels Safe At This Time Childhood Exposure to Second-Hand Smoke: Yes Seatbelt Use: always Sunscreen Use: Yes Assistive Devices: Cane, Glasses and Hearing Aid - Bilateral Review of Systems Review of Systems: All systems reviewed & are unremarkable except as noted in HPI & below Physical Exam Physical Exam: General: patient resting comfortably, NAD, non-toxic in appearance, AA&O x 4 Skin: areas of ecchymosis on bilateral LE, areas of dry skin HEENT: NC/AT, PERRL, EOMI, anicteric sclera, conjunctiva without injection, external ear normal to inspection and nontender, nares patent, moist mucus membranes, dentition intact, no oropharyngeal lesions, neck supple, trachea midline, no LAD, no thyromegaly, no JVD Heart: +S1/S2, regular, 3/6 ONI at right 2nd ICS Lungs: equal air entry bilaterally, no rales/rhonchi/wheezes Abd: +BS, soft, NT/ND, no masses/organomegaly/ascites Ext: warm, 2+ pulses in UE/LE bilaterally, no clubbing/cyanosis or edema Pain with palpation of left lower lumbar region, pain at SI joint. MS diminished in LLE, in part secondary to pain Reflexes present, diminished mildly when compared to right Sensation intact Results & Data Results & Data Vital Signs (Past 12 Hours) Vital Signs Temp Pulse Pulse Resp BP BP Pulse Ox 05/14/24 17:25 62 20 116/59 L 95 05/14/24 17:23 05/14/24 16:24 36.6 C 98 H 16 115/70 97 O2 Del Method 05/14/24 17:25 Room Air 05/14/24 17:23 Room Air 05/14/24 16:24 Room Air Laboratory Results Laboratory Results WBC 11.74 K/ul (4.8-10.8) H 05/14/24 17:23 RBC 3.13 M/uL (4.70-6.10) L 05/14/24 17:23 Hgb 9.4 g/dl (14.0-18.0) L 05/14/24 17:23 Hct 29.1 % (42.0-52.0) L 05/14/24 17:23 MCV 93.0 fL (80.0-100.0) 05/14/24 17:23 MCH 30.0 pg (25.0-34.0) 05/14/24 17:23 MCHC 32.3 g/dL (32.0-36.0) 05/14/24 17:23 RDW Std Deviation 73.8 fL (36.4-46.3) H 05/14/24 17:23 RDW Coeff of Linda 21.6 % (11.5-14.5) H 05/14/24 17:23 Plt Count 279 K/uL (130-400) 05/14/24 17:23 MPV 11.9 fL (9.4-12.4) 05/14/24 17:23 Immature Gran % (Auto) 0.4 % 05/14/24 17:23 Neut % (Auto) 79.3 % 05/14/24 17:23 Lymph % (Auto) 12.3 % 05/14/24 17:23 [place] % (Auto) 6.3 % 05/14/24 17:23 Eos % (Auto) 1.1 % 05/14/24 17:23 Baso % (Auto) 0.6 % 05/14/24 17:23 Neut # (Auto) 9.31 K/uL (1.40-6.50) H 05/14/24 17:23 Lymph # (Auto) 1.44 K/uL (1.20-3.40) 05/14/24 17:23 [place] # (Auto) 0.74 K/uL (0.11-0.59) H 05/14/24 17:23 Eos # (Auto) 0.13 K/uL (0.00-0.50) 05/14/24 17:23 Baso # (Auto) 0.07 K/uL (0.00-0.20) 05/14/24 17:23 Immature Gran # (Auto) 0.05 K/uL (0.01-0.20) 05/14/24 17:23 Basophilic Stippling Occasional 05/14/24 17:23 Sodium 138 mmol/L (136-145) 05/14/24 17:23 Potassium 5.3 mmol/L (3.5-5.1) H 05/14/24 17:23 Chloride 104 mmol/L (98-107) 05/14/24 17:23 Carbon Dioxide 29 mmol/L (21-32) 05/14/24 17:23 Anion Gap 5 (3-11) 05/14/24 17:23 BUN 23 mg/dl (6-23) 05/14/24 17:23 Creatinine 1.20 mg/dl (0.6-1.4) 05/14/24 17:23 Est Cr Clr Drug Dosing 51.6 ml/min 05/14/24 17:23 eGFR 62.29 05/14/24 17:23 BUN/Creatinine Ratio 19.2 (10-20) 05/14/24 17:23 Glucose 257 mg/dl (70-99(Fasting)) H 05/14/24 17:23 POC Glucose 240 mg/dl (70-99) H 05/14/24 22:10 Calcium 9.0 mg/dl (8.6-10.3) 05/14/24 17:23 Total Bilirubin 2.1 mg/dl (0.2-1.0) H 05/14/24 17:23 AST 13 U/L (13-39) 05/14/24 17:23 ALT 14 U/L (7-52) 05/14/24 17:23 Alkaline Phosphatase 106 U/L (34-104) H 05/14/24 17:23 Total Protein 7.5 gm/dl (6.0-8.3) 05/14/24 17:23 Albumin 4.4 gm/dl (3.4-5.0) 05/14/24 17:23 Globulin 3.1 gm/dl (2.5-4.0) 05/14/24 17:23 Albumin/Globulin Ratio 1.4 (0.9-2) 05/14/24 17:[address] 05/14/24 17:17 CT SCAN OF THE LUMBAR SPINE WITHOUT IV CONTRAST CLINICAL HISTORY: Low back pain. Radiculopathy. COMPARISON STUDY: MRI of the lumbar spine dated 10/27/2023. CT scan of the lumbar spine dated 07/21/2020. TECHNIQUE: CT scan of the lumbar spine is performed from the lower thoracic spine to the sacrum. Images are reviewed in the axial, sagittal, and coronal planes. IV contrast was not administered for this examination. A dose lowering technique was utilized adhering to the principles of ALARA. There is streak artifact from metallic spinal hardware. CT DOSE: 1045. mGy.cm FINDINGS: The skeletal structures are osteopenic. There is no evidence of acute fracture or malalignment. Vertebral body height and alignment are maintained throughout the lumbar spine. Large anterior and lateral marginal osteophytes are seen throughout. There is postsurgical change from laminectomy and posterior fusion seen at L2-L4. Interpedicular screws are present at all levels. The orthopedic hardware appears intact. Lucency around the interpedicular screws in L2 suggests loosening. Both of the screws within the body of L2 appear to extend through the superior endplate. A left pedicular fracture of L2 is likely chronic. The transverse processes are grossly intact. No lytic or blastic lesion is seen. There has been discectomy at L2-L3. Severe disc space narrowing is seen at L3-L4 and L4-L5. Only mild disc space narrowing is seen at the remaining lumbar levels. Posterior disc osteophyte complexes are seen at all lumbar levels. There is at least mild central canal stenosis at L5-S1. There is a large left lateral disc bulge at L4-L5 and large bilateral disc bulges at L5-S1. This contributes to subarticular and neural foraminal stenosis at these levels. The visualized sacrum and bony pelvis appear intact. The paraspinous soft tissues are normal as imaged. There is advanced atherosclerotic calcification of the abdominal aorta, which is normal in caliber. There is a 2.5 cm left renal cyst. IMPRESSION: 1. No acute bony abnormality is seen involving the lumbar spine. 2. A left pedicular fracture of L2 is likely chronic. 3. Postsurgical and spondylotic change as above. Lucency around the interpedicular screws in L2 suggests loosening. 4. Additional findings as above. ACT 112: Negative or not required by law. Electronically signed by: Leandro Napier M.D. 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
--- NOTE | 2024-05-14 21:36 | Emergency Department Note ---
ED Provider Note History of Present Illness Chief Complaint: Hip Pain Stated Complaint: L HIP PAIN TO FOOT,BACK PAIN,UNABLE TO WALK Time Seen by Provider: 05/14/24 16:42 Source: patient Mode of arrival: ambulatory Limitations: no limitations This patient is a 78-year-old male who presents to the emergency department for evaluation of left-sided back pain. Patient reports that pain has been ongoing on and off for a few months but has been worsening over the past few days. He states that the pain starts in the left low back and radiates into the hip and down the left leg. He has seen his PCP for this and has had x-rays done. He received an injection from pain management a few weeks ago without any improvement. He has had prior lumbar spine surgery performed by Dr. Brown. Patient reports some altered sensation in the left lower extremity, but states that he does have neuropathy at baseline. Denies any weakness, urinary symptoms or bowel/bladder incontinence. He denies any fevers. He states that over the past few days it has been very difficult for him to get up and around the house. Home Medications Medication Instructions Recorded Confirmed Type epinephrine 0.3 mg/0.3 mL 0.3 mg IM Q3H PRN Allergy Symptoms 10/21/18 05/14/24 History injection, auto-injector (EpiPen) finasteride 5 mg tablet 5 mg PO QAM 10/21/18 05/14/24 History atorvastatin 40 mg tablet (Lipitor) 40 mg PO HS 10/22/18 05/14/24 History donepezil 10 mg tablet 10 mg PO QAM 10/22/18 05/14/24 History lamotrigine 200 mg tablet 200 mg PO HS 10/22/18 05/14/24 History acetaminophen 500 mg tablet 1,000 mg PO TID PRN Pain 03/18/20 05/14/24 History (Tylenol Extra Strength) buspirone 30 mg tablet 30 mg PO TID 07/21/20 05/14/24 History nitroglycerin 0.4 mg sublingual 0.4 mg sublingual Q5M PRN Chest 08/21/20 05/14/24 Rx tablet (Nitrostat) Pain #30 tabs memantine 5 mg tablet 5 mg PO BID #180 tabs 11/05/21 05/14/24 Rx cetirizine 10 mg tablet 10 mg PO DAILY PRN allergy 11/18/21 05/14/24 Rx symptoms #30 tabs ondansetron HCl 8 mg tablet 8 mg PO Q12H PRN nausea and 01/12/22 05/14/24 Rx vomiting #20 tabs hydrocortisone 2.5 % topical 1 applic topical HS PRN Itching 03/12/22 05/14/24 Rx ointment #28.35 grams clopidogrel 75 mg tablet 75 mg PO HS 08/16/23 05/14/24 History gabapentin 300 mg capsule 600 mg PO TID 01/25/24 05/14/24 History albuterol sulfate 90 mcg/actuation 2 puff inhalation Q4H PRN 03/21/24 05/14/24 History aerosol inhaler Shortness Of Breath Or Wheezing alfuzosin 10 mg tablet,extended 10 mg PO HS 03/21/24 05/14/24 History release 24 hr budesonide 160 mcg-glycopyr 9 2 inh inhalation QAM 03/21/24 05/14/24 History mcg-formot 4.8 mcg/actuation HFA inhaler (Breztri Aerosphere) carvedilol 3.125 mg tablet 3.125 mg PO BID 03/21/24 05/14/24 History mupirocin 2 % topical ointment 1 applic topical TID #15 grams 03/23/24 05/14/24 Rx peg 3350-electrolytes 236 240 ml PO Q10M #4,000 mL 04/04/24 04/18/24 Rx gram-22.74 gram-6.74 gram-5.86 gram solution (GaviLyte-G) diclofenac sodium 1 % topical gel 2 g topical QID PRN foot pain 04/05/24 05/14/24 History dorzolamide (PF) 2 % (PF) eye drops 1 drp ophthalmic (eye) HS 04/05/24 05/14/24 History glimepiride 1 mg tablet 1 mg PO UD 04/05/24 05/14/24 History insulin glargine 100 unit/mL (3 18 - 24 unit subcut BID 04/05/24 05/14/24 History mL) subcutaneous pen (Lantus Solostar U-100 Insulin) timolol maleate (PF) 0.5 % eye 1 drp ophthalmic (eye) HS 04/05/24 05/14/24 History drops in a dropperette pantoprazole 40 mg tablet,delayed 40 mg PO BID #60 tabs 04/16/24 05/14/24 Rx release duloxetine 60 mg capsule,delayed 60 mg PO BID #180 caps 04/23/24 05/14/24 Rx release transport wheel chair #1 ea 05/03/24 Rx Allergies Allergy/AdvReac Type Severity Reaction Status Date / Time bee venom protein (honey bee) Allergy Severe SWELLING Verified 04/18/24 13:01 Sulfa (Sulfonamide Allergy Intermediate "SULFA": Verified 04/18/24 13:01 Antibiotics) RASH Penicillins Allergy Unknown UNKNOWN Verified 04/18/24 13:01 lisinopril Allergy unknown Verified 04/18/24 13:01 reaction codeine AdvReac Intermediate HALLUCINATI Verified 04/18/24 13:01 NG meloxicam AdvReac renal Verified 04/18/24 13:01 failure Past Med/Surg History Problem List (Updated 05/14/24 @ 21:35 by Kathrine Barrientos PA-C) Left lumbar radiculopathy (Acute) Actinic keratoses History of pulmonary embolism Hip pain, right Low back pain Heme positive stool Anemia (Acute) Cellulitis of leg, right (Acute) BPH w urinary obs/LUTS Ankle edema Anemia Neuropathic pain Peripheral arterial disease Lumbosacral radiculopathy at S1 Right foot pain Encounter for pre-operative examination Hyperproteinemia Orthostatic hypotension Olecranon bursitis, right elbow resolved Lightheadedness resolved Colon cancer screening Changing skin lesion removed from hand Scattered rhonchi of right lung Chronic low back pain Chronic anemia Diarrhea ongoing Medicare annual wellness visit, subsequent Olecranon bursitis, left elbow resolved Folate deficiency Vitamin B 12 deficiency Nonallergic rhinitis Allergic rhinitis Hyperkalemia Cervicalgia Paraproteinemia Chronic low back pain Proteinuria Nocturnal enuresis 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 Biventricular cardiac pacemaker in situ Stage 3b chronic kidney disease Chronic anemia Syncope and collapse happened once in 2020 Dementia Dyspnea on exertion Cardiomyopathy CAD, multiple vessel S/P coronary artery stent placement ~2001, SOB w/chest tightness, [facility], x2 stents; 2002, SOB w/chest tightness, [place], x2; 2003, SOB w/chest tightness, [place], x1 stent; 2004, SOB w/chest tightness, [place], x1 stent; 2009, SOB w/chest tightness, [place], x2 stents; 2012, SOB w/chest tightness, [facility], x1 stent; 2013, SOB w/chest tightness, x2 stents, [place]; 2016, SOB w/chest tightness, [place], x1 stent; 2018, SOB w/chest tightness, x2 stents; 2020, SOB w/chest tightness, [facility], x4 stents; f/u dr. segura Squamous cell skin cancer Aneurysm of ascending aorta (Acute) monitoring currently; f/u carmelo betancur Asthma with COPD (Acute) daily inh and prn inhaler Carotid artery stenosis (Acute) Generalized anxiety disorder (Acute) History of TIA (transient ischemic attack) (Acute) Hyperlipidemia (Acute) Benign essential hypertension (Acute) Myelodysplastic syndrome (Acute) PTSD (post-traumatic stress disorder) (Acute) S/P aortic valve replacement with bioprosthetic valve (Acute) S/P laparoscopic cholecystectomy (Acute) Depression BPH (benign prostatic hyperplasia) COPD (chronic obstructive pulmonary disease) CKD (chronic kidney disease) (Acute) unsure of stage Pacemaker 2011, Placed after AVR due to complete heart block, [facility]; [employer] Medical History (Updated 05/14/24 @ 21:35 by Kathrine Barrientos PA-C) Pulmonary embolism Acute alteration in mental status Foreign body of right heel Syncope and collapse happened once in 2020 Hx of squamous cell carcinoma Pulmonary embolism per "he never had one, thinks they ruled this out at one point in time" PTSD (post-traumatic stress disorder) PAD (peripheral artery disease) Orthostatic hypotension happens sometimes Myelodysplasia (myelodysplastic syndrome) Hip pain, left ongoing, radiates down to foot Lumbosacral radiculopathy at S1 Hyperlipidemia Generalized anxiety disorder Diabetes mellitus, type 2 per "not well controlled" Depression CKD (chronic kidney disease) unsure of stage Chronic low back pain Chronic anemia Cervicalgia hx, no current issues Neuropathy Carotid artery stenosis Cardiomyopathy Biventricular cardiac pacemaker in situ Asthma with COPD daily and prn inh Ascending aortic aneurysm monitoring currently; f/u carmelo betancur Hx-TIA (transient ischemic attack) 2019, slurred speech and confusion, brought to [facility]>no residual symtoms History of COVID-19 2019, tested thru PCP, not hosp; mild symptoms-diarrhea, cold symptoms>resolved Chronic bronchitis Leukocytosis hx CARTER (dyspnea on exertion) chronic Bicuspid aortic valve replaced with bioprosthetic valve Dementia "mild" BPH (benign prostatic hyperplasia) HTN (hypertension), benign CAD (coronary artery disease) Myocardial infarction 2011, SOB w/chest tightness and pain into shoulder and jaw, [facility], had cardiac cath w/2 stents Surgical History (Updated 04/20/24 @ 00:09 by Nikhil Camejo) Hx of squamous cell carcinoma excision hand S/P cardiac pacemaker procedure History of back surgery x2, 05/10/2020 Grade 2 view with Mac 3 blade; both lower back History of tonsillectomy History of repair of rotator cuff right S/P right knee surgery H/O endoscopic retrograde cholangiopancreatography History of colonoscopy Hx of cholecystectomy H/O cardiac catheterization ~2001, SOB w/chest tightness, [facility], x2 stents; 2002, SOB w/chest tightness, [place], x2; 2003, SOB w/chest tightness, [place], x1 stent; 2004, SOB w/chest tightness, [place], x1 stent; 2009, SOB w/chest tightness, [place], x2 stents; 2011, SOB w/chest tightness, [place], x1 stent; 2013, SOB w/chest tightness, x2 stents, [place]; 2015, SOB w/chest tightness, [place], x1 stent; 2017, SOB w/chest tightness, x2 stents; 2019, SOB w/chest tightness, [facility], x4 stents; f/u S/P aortic valve replacement 2011, [place]; f/u dr. segura Family History Sister Anxiety Brother Alcohol abuse Father Cardiac disorder Myocardial infarction Mother Depression Kidney disease Lung disease Stroke Other Family history non-contributory Denies family history of Ovarian cancer Prostate cancer Breast cancer Colorectal cancer Social History Smoking Status: Former smoker Tobacco Type: Cigarettes and Smokeless Tobacco (Dip or Chew) Age Quit Using Tobacco: 64; Cigarettes Per Day: occasional; Second Hand Exposure: No; Do You Dip or Chew Tobacco: Yes (advised); Hx Alcohol Use: Yes Alcohol type: hard liquor Hx Substance Use: No Preferred Language: Mohawk Communication Ability: Effective Visual Impairment: Limited Hearing Ability: Use of Hearing Aid Counterintelligence Analyst Required: No Beliefs That Will Affect Care: None marital status: Current Living Situation: Spouse Current Living Situation Comment: House Feels Safe at Home: Yes Childhood Exposure to Second-Hand Smoke: Yes Seatbelt Use: always Sunscreen Use: Yes Assistive Devices: Hearing Aid - Bilateral Physical Exam Vital Signs Vital Signs - 24 hr 05/14/24 16:24 05/14/24 17:23 05/14/24 17:25 Temperature 36.6 C Temperature Source Temporal Artery Scan Pulse Rate 98 H Pulse Rate [Left Finger] 62 Respiratory Rate 16 20 Respiratory Effort / Characteristics Non-Labored Non-Labored Spontaneous Respiratory Depth Normal Normal Respiratory Pattern Blood Pressure 115/70 Blood Pressure [Left Arm] 116/59 L Blood Pressure Mean 85 Blood Pressure Mean [Left Arm] 78 Pulse Oximetry 97 95 Oxygen Delivery Method Room Air Room Air Room Air Sepsis Recent Fever Within 48 Hours No Sepsis New/Unexplained Change in Mental Status N/A Sepsis Action Taken by Nursing No Action Required 05/14/24 19:00 05/14/24 21:01 05/14/24 21:21 Temperature Temperature Source Pulse Rate Pulse Rate [Left Finger] 65 98 H Respiratory Rate 20 Respiratory Effort / Characteristics Non-Labored Spontaneous Respiratory Depth Normal Respiratory Pattern Regular Blood Pressure Blood Pressure [Left Arm] 134/56 L 130/70 Blood Pressure Mean Blood Pressure Mean [Left Arm] 82 90 Pulse Oximetry 96 Oxygen Delivery Method Room Air Sepsis Recent Fever Within 48 Hours Sepsis New/Unexplained Change in Mental Status Sepsis Action Taken by Nursing VITALS: Vitals are noted on the nurse's note and reviewed by myself. GENERAL: This is a 78-year-old male, in no acute distress, well-developed well- nourished. SKIN: The skin was without rashes. HEART: Regular rate and rhythm without murmurs gallops or rubs. LUNGS: Clear to auscultation bilaterally without wheezes, rales or rhonchi. MUSCULOSKELETAL: Tenderness to palpation of the left SI joint. Full range of motion of bilateral lower extremities, strength 5/5 in bilateral lower extremities. Patellar DTRs 2+ bilaterally. NEURO: Patient was alert and oriented to person place and time. Distal sensation intact. Course Administered Medications Discontinued Medications Morphine Sulfate (Morphine Sulfate 4 Mg/Ml 1 Ml Carp\\Vial) 4 mg IV NOW STA Stop: 05/14/24 17:00 Last Admin: 05/14/24 17:35 Dose: 4 mg Documented By: NRB Ondansetron HCl (Ondansetron Inj 2 Mg/Ml 2 Ml Vial) 4 mg IV NOW STA Stop: 05/14/24 17:32 Last Admin: 05/14/24 17:34 Dose: 4 mg Documented By: NRB Medical Decision Making Differential Diagnosis Differential diagnosis includes cauda equina syndrome, cord compression, disc herniation, muscle spasm, lumbar strain, epidural abscess, malignancy, transverse myelitis, urinary tract infection, colitis, diverticulitis, kidney stone, among others. Laboratory Data Attestation: I reviewed the patient's lab results. 05/14/24 17:23 05/14/24 17:23 Lab Results 05/14/24 Range/Units 17:23 WBC 11.74 H (4.8-10.8) K/ul RBC 3.13 L (4.70-6.10) M/uL Hgb 9.4 L (14.0-18.0) g/dl Hct 29.1 L (42.0-52.0) % MCV 93.0 (80.0-100.0) fL MCH 30.0 (25.0-34.0) pg MCHC 32.3 (32.0-36.0) g/dL RDW Std Deviation 73.8 H (36.4-46.3) fL RDW Coeff of Linda 21.6 H (11.5-14.5) % Plt Count 279 (130-400) K/uL MPV 11.9 (9.4-12.4) fL Immature Gran % (Auto) 0.4 % Neut % (Auto) 79.3 % Lymph % (Auto) 12.3 % [place] % (Auto) 6.3 % Eos % (Auto) 1.1 % Baso % (Auto) 0.6 % Neut # (Auto) 9.31 H (1.40-6.50) K/uL Lymph # (Auto) 1.44 (1.20-3.40) K/uL [place] # (Auto) 0.74 H (0.11-0.59) K/uL Eos # (Auto) 0.13 (0.00-0.50) K/uL Baso # (Auto) 0.07 (0.00-0.20) K/uL Immature Gran # (Auto) 0.05 (0.01-0.20) K/uL Basophilic Stippling Occasional Sodium 138 (136-145) mmol/L Potassium 5.3 H (3.5-5.1) mmol/L Chloride 104 (98-107) mmol/L Carbon Dioxide 29 (21-32) mmol/L Anion Gap 5 (3-11) BUN 23 (6-23) mg/dl Creatinine 1.20 (0.6-1.4) mg/dl Est Cr Clr Drug Dosing 51.6 ml/min eGFR 62.29 BUN/Creatinine Ratio 19.2 (10-20) Glucose 257 H (70-99(Fasting)) mg/dl Calcium 9.0 (8.6-10.3) mg/dl Total Bilirubin 2.1 H (0.2-1.0) mg/dl AST 13 (13-39) U/L ALT 14 (7-52) U/L Alkaline Phosphatase 106 H (34-104) U/L Total Protein 7.5 (6.0-8.3) gm/dl Albumin 4.4 (3.4-5.0) gm/dl Globulin 3.1 (2.5-4.0) gm/dl Albumin/Globulin Ratio 1.4 (0.9-2) Imaging Data Attestation: I personally reviewed and interpreted this imaging study as follows: Radiologist's Impression: Lumbar Spine CT 05/14/24 17:17 CT SCAN OF THE LUMBAR SPINE WITHOUT IV CONTRAST CLINICAL HISTORY: Low back pain. Radiculopathy. COMPARISON STUDY: MRI of the lumbar spine dated 10/27/2023. CT scan of the lumbar spine dated 07/21/2020. TECHNIQUE: CT scan of the lumbar spine is performed from the lower thoracic spine to the sacrum. Images are reviewed in the axial, sagittal, and coronal planes. IV contrast was not administered for this examination. A dose lowering technique was utilized adhering to the principles of ALARA. There is streak artifact from metallic spinal hardware. CT DOSE: 1045. mGy.cm FINDINGS: The skeletal structures are osteopenic. There is no evidence of acute fracture or malalignment. Vertebral body height and alignment are maintained throughout the lumbar spine. Large anterior and lateral marginal osteophytes are seen throughout. There is postsurgical change from laminectomy and posterior fusion seen at L2-L4. Interpedicular screws are present at all levels. The orthopedic hardware appears intact. Lucency around the interpedicular screws in L2 suggests loosening. Both of the screws within the body of L2 appear to extend through the superior endplate. A left pedicular fracture of L2 is likely chronic. The transverse processes are grossly intact. No lytic or blastic lesion is seen. There has been discectomy at L2-L3. Severe disc space narrowing is seen at L3-L4 and L4-L5. Only mild disc space narrowing is seen at the remaining lumbar levels. Posterior disc osteophyte complexes are seen at all lumbar levels. There is at least mild central canal stenosis at L5-S1. There is a large left lateral disc bulge at L4-L5 and large bilateral disc bulges at L5-S1. This contributes to subarticular and neural foraminal stenosis at these levels. The visualized sacrum and bony pelvis appear intact. The paraspinous soft tissues are normal as imaged. There is advanced atherosclerotic calcification of the abdominal aorta, which is normal in caliber. There is a 2.5 cm left renal cyst. IMPRESSION: 1. No acute bony abnormality is seen involving the lumbar spine. 2. A left pedicular fracture of L2 is likely chronic. 3. Postsurgical and spondylotic change as above. Lucency around the interpedicular screws in L2 suggests loosening. 4. Additional findings as above. ACT 112: Negative or not required by law. Electronically signed by: Leandro Napier M.D. 05/14/2024 7:29 PM MDM Narrative This patient is a 78-year-old male who presents to the emergency department for evaluation of back pain over the past several months which has been worsening over the past few days. He reports that he has been had difficulty getting around his house and has barely gotten out of the chair over the past few days. His is having difficulty helping him as she is elderly as well. I initially ordered MRI, however this cannot be performed on a weekend due to the patient's pacemaker. CT scan was performed and patient does have a large disc bulge at L4-L5 which is most likely causing his symptoms. Patient received a dose of morphine here which did help with the pain. He will be admitted to the hospitalist service for ambulatory dysfunction and back pain. Impression Left lumbar radiculopathy Discharge Plan Visit Data Chief Complaint: Hip Pain Stated Complaint: L HIP PAIN TO FOOT,BACK PAIN,UNABLE TO WALK ED Provider: Bryce Harris ED Midlevel Provider: Kathrine Barrientos Discharge Problem: Left lumbar radiculopathy Forms Stand Alone Forms: My [facility] Prescriptions Prescriptions: No Action memantine 5 mg tablet 5 mg PO BID Qty: 180 3RF pantoprazole 40 mg tablet,delayed release (DR/EC) 40 mg PO BID Qty: 60 5RF (DME) transport wheel chair See Rx Instructions .Route .MEDSUPPLY Qty: 1 0RF Rx Instructions: As directed nitroglycerin [Nitrostat] 0.4 mg tablet, sublingual 0.4 mg Sublingual Q5M PRN (Reason: Chest Pain) Qty: 30 5RF Rx Instructions: place 1 tab under the tongue every 5 min. for up to 3 doses as needed for chest pain call 911 if pain persists cetirizine 10 mg tablet 10 mg PO DAILY PRN (Reason: allergy symptoms) Qty: 30 0RF ondansetron HCl 8 mg tablet 8 mg PO Q12H PRN (Reason: nausea and vomiting) Qty: 20 2RF gabapentin 300 mg capsule 600 mg PO TID hydrocortisone 2.5 % ointment 1 applic TOPICAL HS PRN (Reason: Itching) Qty: 28.35 11RF Rx Instructions: APPLY TO BOTH EARS duloxetine 60 mg capsule,delayed release(DR/EC) 60 mg PO BID Qty: 180 3RF peg 3350-electrolytes [GaviLyte-G] 236-22.74-6.74 -5.86 gram recon soln 240 ml PO Q10M Qty: 4000 0RF Rx Instructions: until fecal effluent is clear acetaminophen [Tylenol Extra Strength] 500 mg Tablet 1,000 mg PO TID PRN (Reason: Pain) buspirone 30 mg Tablet 30 mg PO TID finasteride 5 mg Tablet 5 mg PO QAM epinephrine [EpiPen] 0.3 mg/0.3 mL Auto-Injector 0.3 mg IM Q3H PRN (Reason: Allergy Symptoms) lamotrigine 200 mg Tablet 200 mg PO HS atorvastatin [Lipitor] 40 mg Tablet 40 mg PO HS donepezil 10 mg Tablet 10 mg PO QAM clopidogrel 75 mg tablet 75 mg PO HS alfuzosin 10 mg tablet extended release 24 hr 10 mg PO HS Rx Instructions: at bedtime for prostate symptoms. albuterol sulfate 90 mcg/actuation Hfa Aerosol Inhaler 2 puff INHALATION Q4H PRN (Reason: Shortness Of Breath Or Wheezing) Ilana Aerosphere 160-9-4.8 mcg/actuation HFA aerosol inhaler 2 inh inhalation QAM carvedilol 3.125 mg tablet 3.125 mg PO BID Rx Instructions: must administer with a meal/food mupirocin 2 % ointment 1 applic topical TID Qty: 15 0RF Rx Instructions: Apply a thin layer to the affected area 3 times daily. The area may be covered with gauze dressing. Continue for 1-2 weeks. timolol maleate (PF) 0.5 % Dropperette 1 drp OPHTHALMIC (EYE) HS dorzolamide (PF) 2 % Drops 1 drp OPHTHALMIC (EYE) HS glimepiride 1 mg tablet 1 mg PO UD Rx Instructions: 1 mg orally 2 pills with breakfast, 1 with lunch, and 1 with supper.; insulin glargine [Lantus Solostar U-100 Insulin] 100 unit/mL (3 mL) insulin pen 18 - 24 unit SUBCUT BID Rx Instructions: 18 units in am and 24 units at bedtime diclofenac sodium 1 % gel 2 g topical QID PRN (Reason: foot pain) Referrals Referrals: Leandro Rodrigues MD [Primary Care Provider] -
--- NOTE | 2024-05-14 21:37 | Emergency Department Note ---
ED Visit Note I was consulted by the Advanced Practice Provider, Kathrine Barrientos PA-C. I personally made/approved the management plan and take responsibility for the patient management. I performed a substantive portion of the visit. This includes the aspects of: -MDM. Patient will need MR imaging but cannot be completed today due to pacemaker per radiology. CT imaging showed degenerative and postsurgical changes. Given the patient's inability to get around further management in the hospital will be necessary. Patient will be admitted by internal medicine for further management. .
[2024-05-14] MEDS ORDERED: MoRPHine SULFATE 2 MG/ML CARP IV PRN (22:03)
[2024-05-14] MEDS ORDERED: GLUCOSE 40% GEL 15 GM TUBE PO PRN (22:03)
[2024-05-14] MEDS ORDERED: DEXTROSE 50% 50 ML SYRINGE IV PRN (22:03)
[2024-05-14] MEDS ORDERED: ALBUTEROL HFA 8 GM INHALER INH PRN (22:03)
[2024-05-14] MEDS ORDERED: GLUCAGON FOR INJ 1 MG VIAL SQ PRN (22:03)
[2024-05-14] MEDS ORDERED: GLUCOSE 10 TAB/TUBE PO PRN (22:03)
[2024-05-14] MEDS: MoRPHine SULFATE 4 MG/ML 1 ML CARP\\VIAL IV PRN (22:30)
[2024-05-14] MEDS: LANTUS PER UNIT CHARGE SQ SCH (22:50)
[2024-05-14] MEDS: INSULIN ASPART PER UNIT CHARGE SC SCH (22:50)
[2024-05-14] MEDS: ACETAMINOPHEN 500 MG TAB PO SCH (23:24)
[2024-05-14] MEDS: DULoxetine HCL 60 MG CAP PO SCH (23:26)
[2024-05-14] MEDS: busPIRone 15 MG TAB PO SCH (23:26)
[2024-05-14] MEDS: carvediloL 3.125 MG TAB PO SCH (23:26)
[2024-05-14] MEDS: DORZOLAMIDE HCL 2% OPH SOLN 10 ML BTL OP SCH (23:26)
[2024-05-14] MEDS: ATORVASTATIN 40 MG TAB PO SCH (23:26)
[2024-05-14] MEDS: lamoTRIgine 100 MG TAB PO SCH (23:27)
[2024-05-14] MEDS: MEMANTINE HCL 5 MG TAB PO SCH (23:27)
[2024-05-14] MEDS: GABAPENTIN 300 MG CAP PO SCH (23:27)
[2024-05-14] MEDS: LIDOCAINE 5% 1 PATCH TD STA (23:28)
[2024-05-14] MEDS: PANTOprazole 40 MG TAB PO SCH (23:28)
[2024-05-14] MEDS: TAMSULOSIN HCL 0.4 MG CAP PO SCH (23:28)
[2024-05-14] MEDS: KETOROLAC TROMETHAMINE 15 MG/ML VIAL IV PRN (23:33)
[2024-05-15 01:43] LABS: Appearance Urine Clear (Clear); Bacteria Urine Automated None Seen (None Seen); Bilirubin Urine Negative (Negative); Blood Urine Negative (Negative); Color Urine Dark Yellow; Epithelial Cell Urine Auto 0-2 /hpf (0-2); Glucose Urine UA 1+ (Negative); Ketones Urine Trace (Negative); Leukocyte Esterase Urine Negative (Negative); Nitrite Urine Negative (Negative); Protein Urine 1+ (Negative); RBC Urine Automated 0-2 /hpf (0-2); Specific Gravity Urine 1.022 (1.000-1.030); Urobilinogen Urine Negative (Negative); WBC Urine Automated 0-5 /hpf (0-5); pH Urine 5.5 (4.5-7.5)
[2024-05-15 06:28] LABS: Hematocrit (blood only) 25.9 % (42.0-52.0); Hemoglobin 8.4 g/dl (14.0-18.0); Mean Corpuscular Hemoglobin 30.3 pg (25.0-34.0); Mean Corpuscular Hgb Conc 32.4 g/dL (32.0-36.0); Mean Corpuscular Volume 93.5 fL (80.0-100.0); Mean Platelet Volume 11.9 fL (9.4-12.4); Nucleated RBC # (auto) 0.02 K/uL (0.00-0.12); Nucleated RBC % (auto) 0.2 %; Platelet Count 253 K/uL (130-400); RDW Standard Deviation 75.3 fL (36.4-46.3); Red Blood Count 2.77 M/uL (4.70-6.10); White Blood Count 10.92 K/ul (4.8-10.8)
[2024-05-15 06:42] LABS: BUN Creatinine Ratio 17.7 (10-20); Calcium 8.6 mg/dl (8.6-10.3); Creatinine Clr Calc Pharmacy 39.2 ml/min; Potassium 5.1 mmol/L (3.5-5.1)
[2024-05-15] MEDS: FINASTERIDE 5 MG TAB PO SCH (08:13)
[2024-05-15] MEDS: DONEPEZIL HCL 10 MG TAB PO SCH (08:13)
[2024-05-15] MEDS: GABAPENTIN 600 MG TAB PO SCH (08:57)
[2024-05-15] MEDS: traMADol HCL 50 MG TABLET PO PRN (09:04)
--- NOTE | 2024-05-15 10:18 | Orthopedic Consultation ---
Date of Consultation May 15, 2024 Assessment & Plan (1) Left lumbar radiculopathy: Patient is clearly struggling with lumbar radiculopathy. I like to obtain an urgent MRI lumbar spine for definitive diagnosis and area of the neural compression. He may require surgical intervention. Will review imaging and make final conditions. History of Present Illness Reason for Consultation: Back and left leg pain Attending Physician: Deneen Stuart MD History of Present Illness This is a 78-year-old male well-known to the presents with history of worsening left leg pain since November of this year. He denies any specific trauma fall event. Is become incapacitating in nature. Is unable to ambulate. The pain radiates to the left buttock posterior thigh and down to his foot. He struggles with occasional right leg pain but not to the severity of his left. There is weakness associated with his discomfort. He does have known peripheral neuropathy. Allergies Allergy/AdvReac Type Severity Reaction Status Date / Time bee venom protein (honey bee) Allergy Severe SWELLING Verified 04/18/24 13:01 Sulfa (Sulfonamide Allergy Intermediate "SULFA": Verified 04/18/24 13:01 Antibiotics) RASH Penicillins Allergy Unknown UNKNOWN Verified 04/18/24 13:01 lisinopril Allergy unknown Verified 04/18/24 13:01 reaction codeine AdvReac Intermediate HALLUCINATI Verified 04/18/24 13:01 NG meloxicam AdvReac renal Verified 04/18/24 13:01 failure Home Medications Medication Instructions Recorded Confirmed Type epinephrine 0.3 mg/0.3 mL 0.3 mg IM Q3H PRN Allergy Symptoms 10/21/18 05/14/24 History injection, auto-injector (EpiPen) finasteride 5 mg tablet 5 mg PO QAM 10/21/18 05/14/24 History atorvastatin 40 mg tablet (Lipitor) 40 mg PO HS 10/22/18 05/14/24 History donepezil 10 mg tablet 10 mg PO QAM 10/22/18 05/14/24 History lamotrigine 200 mg tablet 200 mg PO HS 10/22/18 05/14/24 History acetaminophen 500 mg tablet 1,000 mg PO TID PRN Pain 03/18/20 05/14/24 History (Tylenol Extra Strength) buspirone 30 mg tablet 30 mg PO TID 07/21/20 05/14/24 History nitroglycerin 0.4 mg sublingual 0.4 mg sublingual Q5M PRN Chest 08/21/20 05/14/24 Rx tablet (Nitrostat) Pain #30 tabs memantine 5 mg tablet 5 mg PO BID #180 tabs 11/05/21 05/14/24 Rx cetirizine 10 mg tablet 10 mg PO DAILY PRN allergy 11/18/21 05/14/24 Rx symptoms #30 tabs ondansetron HCl 8 mg tablet 8 mg PO Q12H PRN nausea and 01/12/22 05/14/24 Rx vomiting #20 tabs hydrocortisone 2.5 % topical 1 applic topical HS PRN Itching 03/12/22 05/14/24 Rx ointment #28.35 grams clopidogrel 75 mg tablet 75 mg PO HS 08/16/23 05/14/24 History gabapentin 300 mg capsule 600 mg PO TID 01/25/24 05/14/24 History albuterol sulfate 90 mcg/actuation 2 puff inhalation Q4H PRN 03/21/24 05/14/24 History aerosol inhaler Shortness Of Breath Or Wheezing alfuzosin 10 mg tablet,extended 10 mg PO HS 03/21/24 05/14/24 History release 24 hr budesonide 160 mcg-glycopyr 9 2 inh inhalation QAM 03/21/24 05/14/24 History mcg-formot 4.8 mcg/actuation HFA inhaler (Breztri Aerosphere) carvedilol 3.125 mg tablet 3.125 mg PO BID 03/21/24 05/14/24 History mupirocin 2 % topical ointment 1 applic topical TID #15 grams 03/23/24 05/14/24 Rx peg 3350-electrolytes 236 240 ml PO Q10M #4,000 mL 04/04/24 04/18/24 Rx gram-22.74 gram-6.74 gram-5.86 gram solution (GaviLyte-G) diclofenac sodium 1 % topical gel 2 g topical QID PRN foot pain 04/05/24 05/14/24 History dorzolamide (PF) 2 % (PF) eye drops 1 drp ophthalmic (eye) HS 04/05/24 05/14/24 History glimepiride 1 mg tablet 1 mg PO UD 04/05/24 05/14/24 History insulin glargine 100 unit/mL (3 18 - 24 unit subcut BID 04/05/24 05/14/24 History mL) subcutaneous pen (Lantus Solostar U-100 Insulin) timolol maleate (PF) 0.5 % eye 1 drp ophthalmic (eye) HS 04/05/24 05/14/24 History drops in a dropperette pantoprazole 40 mg tablet,delayed 40 mg PO BID #60 tabs 04/16/24 05/14/24 Rx release duloxetine 60 mg capsule,delayed 60 mg PO BID #180 caps 04/23/24 05/14/24 Rx release transport wheel chair #1 ea 05/03/24 Rx Patient History Medical History Acute alteration in mental status Foreign body of right heel Syncope and collapse happened once in 2020 Hx of squamous cell carcinoma Pulmonary embolism per "he never had one, thinks they ruled this out at one point in time" PTSD (post-traumatic stress disorder) PAD (peripheral artery disease) Orthostatic hypotension happens sometimes Myelodysplasia (myelodysplastic syndrome) Hip pain, left ongoing, radiates down to foot Lumbosacral radiculopathy at S1 Hyperlipidemia Generalized anxiety disorder Diabetes mellitus, type 2 per "not well controlled" Depression CKD (chronic kidney disease) unsure of stage Chronic low back pain Chronic anemia Cervicalgia hx, no current issues Neuropathy Carotid artery stenosis Cardiomyopathy Biventricular cardiac pacemaker in situ Asthma with COPD daily and prn inh Ascending aortic aneurysm monitoring currently; [place] [facility] [place]-TIA (transient ischemic attack) 2019, slurred speech and confusion, brought to [facility]>no residual symtoms History of COVID-19 2019, tested thru PCP, not hosp; mild symptoms-diarrhea, cold symptoms>resolved Chronic bronchitis Leukocytosis hx CARTER (dyspnea on exertion) chronic Bicuspid aortic valve replaced with bioprosthetic valve Dementia "mild" BPH (benign prostatic hyperplasia) HTN (hypertension), benign CAD (coronary artery disease) Myocardial infarction 2011, SOB w/chest tightness and pain into shoulder and jaw, phan general, had cardiac cath w/2 stents Surgical History Hx of squamous cell carcinoma excision hand S/P cardiac pacemaker procedure History of back surgery x2, 05/10/2020 Grade 2 view with Mac 3 blade; both lower back History of tonsillectomy History of repair of rotator cuff right S/P right knee surgery H/O endoscopic retrograde cholangiopancreatography History of colonoscopy Hx of cholecystectomy H/O cardiac catheterization ~2001, SOB w/chest tightness, [facility], x2 stents; 2002, SOB w/chest tightness, [place], x2; 2003, SOB w/chest tightness, [place], x1 stent; 2004, SOB w/chest tightness, [place], x1 stent; 2009, SOB w/chest tightness, [place], x2 stents; 2011, SOB w/chest tightness, [place], x1 stent; 2013, SOB w/chest tightness, x2 stents, [place]; 2015, SOB w/chest tightness, [place], x1 stent; 2017, SOB w/chest tightness, x2 stents; 2019, SOB w/chest tightness, [facility], x4 stents; f/u S/P aortic valve replacement 2011, [facility]; f/u dr. segura Family History Sister Anxiety Brother Alcohol abuse Father Cardiac disorder Myocardial infarction Mother Depression Kidney disease Lung disease Stroke Other Family history non-contributory Denies family history of Ovarian cancer Prostate cancer Breast cancer Colorectal cancer Social History Smoking Status: Current some day smoker Tobacco Type: Cigarettes and Smokeless Tobacco (Dip or Chew) Age Quit Using Tobacco: 64; Cigarettes Per Day: maybe 5-10 cigarettes per month; Second Hand Exposure: No; Do You Dip or Chew Tobacco: Yes; Hx Alcohol Use: Yes Alcohol type: beer and hard liquor Hx Substance Use: No Preferred Language: Luxembourgish Communication Ability: Effective Visual Impairment: Limited Hearing Ability: Use of Hearing Aid Wafer Cutter Required: No Beliefs That Will Affect Care: None marital status: Current Living Situation: Spouse Current Living Situation Comment: House Other Information That Helps Us Care for You: No Feels Safe at Home: Yes Safety Concerns: Feels Safe At This Time Childhood Exposure to Second-Hand Smoke: Yes Seatbelt Use: always Sunscreen Use: Yes Assistive Devices: Cane, Glasses and Hearing Aid - Bilateral Physical Exam Physical Exam: On exam patient is currently in bed. He has tenderness palpation of the left sciatic notch. There is breakaway weakness to left dorsiflexion plantarflexion quadriceps compared to the right. Sensory is diminished. Results & Data Vital Signs (Past 12 Hours) Vital Signs Temp Pulse Resp BP Pulse Ox O2 Del Method 05/15/24 07:29 36.4 C L 81 16 96/57 L 90 Room Air
--- NOTE | 2024-05-15 11:44 | Hospitalist Progress Note ---
<Statement entered by Deneen Stuart MD - 05/15/24 17:55> I have reviewed vital signs, chart notes, labs and imaging. I have personally seen, evaluated and examined the patient. I have also discussed the management of the patient with the ARBEN and I agree with the exam findings documented in the history and physical examination and the documented assessment and plan unless otherwise stated below. Mr. Wright does have significant multivessel coronary artery disease he has had multiple stents but most recent were some years ago and this has been stable. he does not have angina. He also has history of a biventricular pacer and a bioprosthetic aortic valve replacement. He has COPD which is stable not in exacerbation, hypertension, CKD stage III, BPH, and history of a TIA. Will obtain EKG in case surgery is contemplated and will need preoperative risk assessment Date of Service May 15, 2024 Assessment & Plan (1) Left lumbar radiculopathy: Plan: Acute on chronic back pain with left sided radiculopathy. Several months of progressive symptoms with acute worsening over the last several days; having difficulty getting up from a chair and walking in his home. No fall, trauma or fevers. He did have a recent injection performed at [facility] in [place] in April 2024. -Tylenol 1gm po TID scheduled -Discontinued Toradol due to EGD 04/12/24 showing gastric ulcer; start tramadol 50 mg for pain -Heat to back as needed -Consulted Ortho-Spine - patient is known to Dr. Brown. -MRI was ordered in ER, however patient has pacemaker and it was unable to be obtained. -Urgent MRI lumbar spine ordered by Ortho. May require surgical intervention. 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 Last [id number]=3.4 on 04/13/24. Patient on Metformin and Glimepiride at home as well as Lantus 20u daily -Hold oral agents -Lantus 7u BID -ISS -Goal blood sugar 110 - 140 -Patient had a well check on 04/18/24 with his PCP and was instructed to actively titrate his Lantus dosing based on AM sugars. He is currently taking 20u daily Plan Chronic Medical Conditions: Hyperlipidemia - chronic/stable -Continue Atorvastatin 40mg po qHS Anxiety - chronic/stable -Continue Buspirone 30mg po TID - of note, this amount exceeds recommended dosing for Buspirone. Dose confirmed on patient's portal -Continue home Duloxetine Dementia - chronic/stable -Continue Aricept and Namenda -Frequent orientation and delirium prevention strategies -Avoid potential delirium inducing agents where able CAD - chronic/stable. No report of chest pain -Continue Carvedilol -Continue Atorvastatin -HOLDING PLAVIX FOR NOW IN EVENT OF SURGERY BPH - chronic/stable -Continue Finasteride and Flomax -Bladder scan as needed GERD - chronic/stable -Continue Protonix 40mg po BID COPD - no cough/SOB/wheeze -Continue Symbicort and Albuterol PTSD - [place] -Continue Lamictal -Continue Duloxetine Leukocytosis on CBC; h/o myelodysplastic syndrome; WBC count decreasing w/o overt infectious symptoms Dispo: Pending possible need for surgical intervention VTE prophylaxis: Previously on Plavix, holding for possible surgery Code: Full Admission and Anticipated Discharge Date Admission Date: May 14, 2024 Subjective Patient seen sitting up in bed today at time of visit. States he continues to have left hip and leg pain, but it has improved mildly since admission. Continues to have some weakness, with most of the symptoms being in the posterior aspect of his left leg. Patient confirmed that last steroid injection was in April 2024, which provided minimal relief. He is planning to meet with an outpatient center regarding a possible stimulator being inserted. Denies bowel or bladder incontinence; denies chest pain, shortness of breath, nausea/vomiting, diarrhea/constipation, abdominal pain. Review of Systems Constitutional: no fatigue Respiratory: no cough and no dyspnea Cardiovascular: no chest pain, no palpitations and no lightheadedness Gastrointestinal: no abdominal pain, no nausea, no vomiting, no constipation and no diarrhea/loose stools No bowel incontinence Genitourinary: no dysuria or no urinary incontinence Neurologic: as per Subjective / HPI Physical Exam Constitutional: no acute distress Respiratory: normal respiratory effort, lungs clear to auscultation Cardiovascular: RRR, no murmur, no edema Gastrointestinal (Abdomen): normal bowel sounds, soft, nontender, no hepatosplenomegaly Musculoskeletal: Extremities: + muscle atrophy (Bilateral lower extremity at level of calf) Left hip with tenderness to palpation; sensation grossly intact to lower extremities, able to lift legs against resistance, slight diminished dorsiflexion to left foot compared to right. Adequate blood flow. Results & Data Results & Data Vital Signs (Past 12 Hours) Vital Signs Temp Pulse Resp BP Pulse Ox O2 Del Method 05/15/24 10:42 Room Air 05/15/24 07:29 36.4 C L 81 16 96/57 L 90 Room Air PG Care Time/CCT Total # of Minutes Spent Total Time Spent with Patient: Total time spent is greater than 50% in coordination of care (as documented) at patient's floor/unit and/or counseling patient: Coding Level of Care Code None Diagnoses Left lumbar radiculopathy M54.16 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 E11.43; E11.65
[2024-05-15] MEDS: LATANOPROST 0.005% OP SOLN 2.5 ML BTL OP SCH (13:25)
[2024-05-15] MEDS: TIMOLOL MALEATE 0.5% OP SOLN 5 ML BTL OP SCH (13:25)
[2024-05-15] MEDS: FLUTICASONE/VILANTEROL 200/25MCG 14 PUFFS/INHALER INH SCH (14:12)
[2024-05-15] MEDS: FERROUS SULFATE 325 MG TAB PO SCH (17:29)
--- NOTE | 2024-05-15 17:56 | Billing Data ---
Date of Service May 15, 2024 Coding Level of Care Code 11764 INT INP/OBS CARE
[2024-05-15] MEDS: CARBOHYDRATES FOR HYPOGLYCEMIA PO PRN (19:00)
--- NOTE | 2024-05-16 08:47 | Orthopedic Progress Note ---
Date of Service May 16, 2024 Assessment & Plan (1) Left lumbar radiculopathy: Plan: At this time we are waiting for his MRI to be complete and make further recommendations for his treatment. Admission and Anticipated Discharge Date Admission Date: May 14, 2024 Subjective Patient continues to have severe left leg radiculopathy with right foot pain. He is only comfortable in bed. Physical Exam Physical Exam: On exam he is prefers to be in a reclined position. It is a struggle with mobilization secondary to radicular pain. Results & Data Vital Signs (Past 12 Hours) Vital Signs Temp Pulse Resp BP Pulse Ox O2 Del Method 05/16/24 07:25 36.7 C 84 16 137/69 92 Room Air 05/15/24 21:35 Room Air 05/15/24 21:11 36.5 C 89 16 132/70 93 Room Air
[2024-05-16 10:54] LABS: Hematocrit (blood only) 26.3 % (42.0-52.0); Hemoglobin 8.5 g/dl (14.0-18.0); Mean Corpuscular Hgb Conc 32.3 g/dL (32.0-36.0); Mean Corpuscular Volume 92.9 fL (80.0-100.0); Mean Platelet Volume 11.2 fL (9.4-12.4); Nucleated RBC # (auto) 0.03 K/uL (0.00-0.12); Nucleated RBC % (auto) 0.3 %; Platelet Count 255 K/uL (130-400); RDW Coefficient of Variation 21.5 % (11.5-14.5); Red Blood Count 2.83 M/uL (4.70-6.10); White Blood Count 11.78 K/ul (4.8-10.8)
[2024-05-16 11:03] LABS: Calcium 8.5 mg/dl (8.6-10.3); Creatinine Clr Calc Pharmacy 33.3 ml/min; Magnesium 1.7 mg/dl (1.7-2.4); Potassium 5.3 mmol/L (3.5-5.1)
[2024-05-16 11:23] LABS: Ferritin 208.3 ng/ml (8-388)
[2024-05-16] MEDS: ONDANSETRON INJ 2 MG/ML 2 ML VIAL IV PRN (12:22)
[2024-05-16] MEDS: PATIROMER CALCIUM SORBITEX 8.4 GM PACK PO ONE (13:30)
--- NOTE | 2024-05-16 14:30 | Magnetic Resonance Report ---
MR lumbar spine wo con CLINICAL HISTORY: 78 years-old Male with Left leg pain. Chronic low back pain. COMPARISON: MRI 10/27/2023, CT lumbar spine 05/14/2024. TECHNIQUE: Multiplanar, multi sequence MRI of the lumbar spine was performed without intravenous cont rast. FINDINGS: Marketing Automation Manager localizer images demonstrate no gross extraspinal abnormality. Study is motion degraded.There i s no evidence of acute fracture or malalignment. Vertebral body height and alignment are maintained t hroughout the lumbar spine. Large anterior and lateral marginal osteophytes are seen throughout. Ther e is postsurgical change from laminectomy and posterior fusion seen at L2-L4. Interpedicular screws a re present at all levels.There has been discectomy at L2-L3. Conus medullaris terminates at T12-L1. Moderate marrow edema at L5-S1, likely secondary to Modic type I degeneration. These findings are new from prior. Mild associated prevertebral edema at L5-S1. T12-L1: Auhj-rg-ycmwesmq intervertebral disc space narrowing with small posterior disc osteophyte co mplex. Moderate facet arthrosis. Central canal and left neural foramen are patent. Mild right foramin al narrowing is unchanged. L1-L2: Pajg-wb-xsirkaxx intervertebral disc space narrowing with small circumferential disc osteophy te complex. Moderate facet arthrosis. Central canal and right neural foramen are patent. There is unc hanged mild left foraminal narrowing. L2-L3: Discectomy. Spondylotic spurring with facet arthrosis. Neural foramen are suboptimally visual ized secondary to artifact from the hardware. There is at least mild bilateral foraminal narrowing. C entral canal is patent. L3-L4: Severe intervertebral disc space narrowing with degenerative partial bony fusion. Circumferen tial disc osteophyte complex with facet arthrosis. Central canal is patent. Suboptimal visualization of the neural foramen. There is gdka-tj-haztinru bilateral foraminal narrowing, which is unchanged. L4-L5: AP dimension of the thecal sac measures 6 mm. Xvhwlelr-se-mytqda central canal stenosis is si milar to prior. Mpwaqujf-xs-bvmorq intervertebral disc space narrowing with circumferential disc oste ophyte complex. Ligamentum flavum thickening with advanced facet arthrosis. Tspegxdx-vm-rnyipn left w ith moderate right foraminal narrowing is unchanged. L5-S1: Progressively worsened ftpo-uz-phtmrxvt posterior intervertebral disc space narrowing with mi ld spondylitic spurring. There is a central/right paracentral 9 x 10 x 9 mm disc extrusion versus seq uestered disc fragment with superior migration on image 30 series 7 and image 14 series 4. Additional ly, there is a 1.1 x 0.9 x 1.3 cm synovial cyst within the left posterior lateral epidural space, whi ch is new from prior. All these findings in conjunction cause severe central canal stenosis with AP d imension of the thecal sac measuring 2 mm. There is an additional disc extrusion versus sequestered d isc fragment within the left lateral recess/left paracentral distribution measuring up to 12 mm on im age 30 series 7 with superior migration. Severe bilateral foraminal stenosis. IMPRESSION: 1. Motion degraded exam. 2. Progressively worsened discogenic degeneration at L5-S1 with disc extrusions versus sequestered di sc fragments and a posterior epidural synovial cyst contributing to cause severe central canal and bi lateral foraminal narrowing. 3. Moderate marrow and paravertebral edema at L5-S1 is likely degenerative/reactive. 4. Additional discogenic degeneration with postoperative changes of the lumbar spine are generally un changed compared to the study from 10/27/2023. ACT 112: Negative or not required by law. The above report was generated using voice recognition software. It may contain grammatical, syntax o r spelling errors. Dictated: 05/16/2024 12:58 PM Transcribed: 05/16/2024 1:32 PM Patrick [id number] [email or web address] Electronically signed by: Bruno Wheeler M.D. 05/16/2024 2:28 PM
[2024-05-16] MEDS: LACTATED RINGER'S 1,000 ML IV SCH (15:47)
--- NOTE | 2024-05-16 16:52 | Hospitalist Progress Note ---
Date of Service May 16, 2024 Assessment & Plan (1) Left lumbar radiculopathy: Plan: 2nd to severe spinal stenosis at L5-S1, with mod-severe L4-L5 stenosis as well Likely the L5-S1 disease is the main culprit, however Ongoing severe LLE pain despite recent injection performed at [facility] in [place] in April 2024 He is already on gabapentin 600mg TID + cymbalta 60mg BID to help with neuropathic pain Morphine IV has been unhelpful Tramadol PO prn has been unhelpful Change to IV dilaudid 0.25mg prn Although he had gastric ulcers on 04/12/24 EGD, he has had 4+ weeks of time for these to heal with PPI bid Thus, add steroids cautiously as this may help reduce inflammation particularly at L5-S1 Start dexamethasone 4mg BID IV Add carafate QID to his PPI BID to help with GI prophylaxis Dr Brown from ortho-spine has seen Mr Wright in consultation To OR on 05/18/24 for decompression-fusion at L4-S1 along with removal of old hardware from prior spine surgery With respect to readiness for surgery from a cardiopulmonary standpoint - * follows with [facility] [place] [facility] - last visit was 01/2024 - was doing well from CAD/cardiac standpoint * known valvular disease with prior h/o AVR - will update his echo tomorrow * known h/o systolic CHF 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 Patient on Metformin and Glimepiride at home as well as Lantus 20u daily - both PO agents on hold cont lantus cont novolog adjust both accordingly due to addition of steroids (4) Myelodysplasia (myelodysplastic syndrome): Plan: has been anemic dating back to well before 2019 records indicate he has MDS H/H about baseline today at risk of needing PRBCs this admission in setting of extensive upcoming back surgery needed Fe studies today show adequate stores B12/folate levels in March 2024 were wnl follow CBC while here (5) BPH w urinary obs/LUTS: Plan: cont flomax cont finasteride fortunately his spinal stenosis does not appear to be causing retention issues at this time (6) Gastric ulcer: Plan: seen on EGD 04/12/[address] Marques likely due to chronic plavix, etc plavix on hold due to need for L-spine surgery on PPI twice daily adding carafate QID in light of addition of steroids for #1 (7) CAD, multiple vessel: Plan: most recent cath - 01/15/2021: Mid LAD stent patent. Patent proximal and mid OM1 stents. Small superior branch of OM1 with probable moderate ostial CAD, approximately 50-70%. Anterior takeoff of dominant RCA. Proximal RCA 30%. Proximal RCA stent mild in stent restenoses. Mid RCA 30-40%. Mid RCA stent mild InStent restenosis with distal margin approximately 40%. Distal RCA 40%. Distal RCA stent patent. was to be on DAPT per 01/2024 cardiology note - looks like only taking plavix - placed on hold for surgery for #1 ; will inform cardiology of such cont statin cont coreg BID no recent ischemic symptoms (8) S/P coronary artery stent placement: Plan: multiple PCIs in the past per records (9) Aneurysm of ascending aorta: Plan: 03/2024 CT -- 4.6cm in diameter at that time no repeat imaging needed at the moment (10) S/P aortic valve replacement with bioprosthetic valve: Plan: Bioprosthetic aortic valve replacement 12/14/2011 update his annual echo tomorrow only soft systolic murmur on exam today (11) COPD (chronic obstructive pulmonary disease): Plan: no exacerbation at this time cont bronchodilators prn (12) Pacemaker: Plan: upgraded to BiV pacer [address] Kevan Choi most recent interrogation with normal function will obtain another interrogation in prep for surgery to exclude any recent dysrhythmia, etc Plan Chronic Medical Conditions: Hyperlipidemia - -Continue Atorvastatin 40mg po qHS Anxiety - chronic/stable -Continue Buspirone 30mg po TID - of note, this amount exceeds recommended dosing for Buspirone. Dose confirmed Dementia - chronic/stable, no agitation or superimposed delirium at this time -Continue Aricept and Namenda PTSD - [facility] -Continue Lamictal -Continue Duloxetine DVT proph - hold chemical means since he will be going to OR next 48 hours I updated pt's by phone this evening She is aware of plan for OR on 05/[address] Brown for his lumbar spinal stenosis Admission and Anticipated Discharge Date Admission Date: May 14, 2024 Subjective patient reports that the IV morphine is not that helpful with respect to pain relief pain travels down the entire left leg to the bottom of the left foot hard to get comfortable, but laying on right side does help his pain some low left-sided back pain in addition to his left leg pain denies any chest pains no dyspnea no abd pain he admits to being quite sedentary since the spring time due to worsening pain and ambulatory dysfunction from his back troubles admits to poor po intake today - doesn't like the foot he does feel he is drinking ok, however has only voided 2-3 times today but denies urinary incontinence bladder scan earlier today was <200ml Review of Systems Review of Systems: gen - no fevers or chills CV - no orthopnea or edema pulm - chronic cough but no change in such GI - no fecal incontinence; no N/V Physical Exam Physical Exam: gen - looks uncomfortable due to LLE pain, but awake/alert otherwise neck - no JVD mouth - MM dry heart - RRR, s1 s2, 2/6 ONI RUSB lungs - scattered wheezes b/l abd - soft NT ND BS+ ext - no edema, pulses 2+ b/l neuro - atrophy of thigh muscles; hip flexion 5/5 b/l; impaired dorsiflexion of L foot, normal on right; plantarflexion preserved b/l feet Results & Data Results & Data Vital Signs (Past 12 Hours) Vital Signs Temp Pulse Resp BP Pulse Ox O2 Del Method 05/16/24 14:28 36.6 C 82 16 119/65 93 Room Air 05/16/24 09:10 Room Air 05/16/24 07:25 36.7 C 84 16 137/69 92 Room Air Laboratory Results Laboratory Results - last 24 hr 05/15/24 05/15/24 05/15/24 19:04 19:20 20:32 WBC RBC Hgb Hct MCV MCH MCHC RDW Std Deviation RDW Coeff of Linda Plt Count MPV Absolute Nucleated RBC Nucleated RBC % (auto) Sodium Potassium Chloride Carbon Dioxide Anion Gap BUN Creatinine Est Cr Clr Drug Dosing eGFR BUN/Creatinine Ratio Glucose POC Glucose 60 L* 83 85 Calcium Magnesium Iron TIBC Unsaturated IBC Transferrin % Sat Ferritin 05/16/24 05/16/24 05/16/24 07:29 10:28 11:47 WBC 11.78 H RBC 2.83 L Hgb 8.5 L Hct 26.3 L MCV 92.9 MCH 30.0 MCHC 32.3 RDW Std Deviation 73.0 H RDW Coeff of Linda 21.5 H Plt Count 255 MPV 11.2 Absolute Nucleated RBC 0.03 Nucleated RBC % (auto) 0.3 Sodium 135 L Potassium 5.3 H Chloride 103 Carbon Dioxide 27 Anion Gap 5 BUN 39 H Creatinine 1.86 H Est Cr Clr Drug Dosing 33.3 eGFR 36.81 BUN/Creatinine Ratio 21.0 H Glucose 118 H POC Glucose 134 H 115 H Calcium 8.5 L Magnesium 1.7 Iron 88 TIBC 265 Unsaturated IBC 177 Transferrin % Sat 33 Ferritin 208.3 05/16/24 16:31 WBC RBC Hgb Hct MCV MCH MCHC RDW Std Deviation RDW Coeff of Linda Plt Count MPV Absolute Nucleated RBC Nucleated RBC % (auto) Sodium Potassium Chloride Carbon Dioxide Anion Gap BUN Creatinine Est Cr Clr Drug Dosing eGFR BUN/Creatinine Ratio Glucose POC Glucose 236 H Calcium Magnesium Iron TIBC Unsaturated IBC Transferrin % Sat Ferritin Diagnostic Findings Lumbar Spine CT 05/14/24 17:17 CT SCAN OF THE LUMBAR SPINE WITHOUT IV CONTRAST CLINICAL HISTORY: Low back pain. Radiculopathy. COMPARISON STUDY: MRI of the lumbar spine dated 10/27/2023. CT scan of the lumbar spine dated 07/21/2020. TECHNIQUE: CT scan of the lumbar spine is performed from the lower thoracic spine to the sacrum. Images are reviewed in the axial, sagittal, and coronal planes. IV contrast was not administered for this examination. A dose lowering technique was utilized adhering to the principles of ALARA. There is streak artifact from metallic spinal hardware. CT DOSE: 1045. mGy.cm FINDINGS: The skeletal structures are osteopenic. There is no evidence of acute fracture or malalignment. Vertebral body height and alignment are maintained throughout the lumbar spine. Large anterior and lateral marginal osteophytes are seen throughout. There is postsurgical change from laminectomy and posterior fus ion seen at L2-L4. Interpedicular screws are present at all levels. The orthopedic hardware appears intact. Lucency around the interpedicular screws in L2 suggests loosening. Both of the screws within the body of L2 appear to extend through the superior endplate. A left pedicular fracture of L2 is likely chronic. The transverse processes are grossly intact. No lytic or blastic lesion is seen. There has been discectomy at L2-L3. Severe disc space narrowing is seen at L3-L4 and L4-L5. Only mild disc space narrowing is seen at the remaining lumbar levels. Posterior disc osteophyte complexes are seen at all lumbar levels. There is at least mild central canal stenosis at L5-S1. There is a large left lateral disc bulge at L4-L5 and large bilateral disc bulges at L5-S1. This contributes to subarticular and neural foraminal stenosis at these levels. The visualized sacrum and bony pelvis appear intact. The paraspinous soft tissues are normal as imaged. There is advanced atherosclerotic calcification of the abdominal aorta, which is normal in caliber. There is a 2.5 cm left renal cyst. IMPRESSION: 1. No acute bony abnormality is seen involving the lumbar spine. 2. A left pedicular fracture of L2 is likely chronic. 3. Postsurgical and spondylotic change as above. Lucency around the interpedicular screws in L2 suggests loosening. 4. Additional findings as above. ACT 112: Negative or not required by law. Electronically signed by: Leandro Napier M.D. 05/14/2024 7:29 PM Lumbar Spine MRI 05/16/24 00:00 MR lumbar spine wo con CLINICAL HISTORY: 78 years-old Male with Left leg pain. Chronic low back pain. COMPARISON: MRI 10/27/2023, CT lumbar spine 05/14/2024. TECHNIQUE: Multiplanar, multi sequence MRI of the lumbar spine was performed without intravenous contrast. FINDINGS: Design Inserter localizer images demonstrate no gross extraspinal abnormality. Study is motion degraded.There is no evidence of acute fracture or malalignment. Vert ebral body height and alignment are maintained throughout the lumbar spine. Large anterior and lateral marginal osteophytes are seen throughout. There is postsurgical change from laminectomy and posterior fusion seen at L2-L4. Interpedicular screws are present at all levels.There has been discectomy at L2- L3. Conus medullaris terminates at T12-L1. Moderate marrow edema at L5-S1, likely secondary to Modic type I degeneration. These findings are new from prior. Mild associated prevertebral edema at L5-S1. T12-L1: Agrm-si-dbyacuzp intervertebral disc space narrowing with small posterior disc osteophyte complex. Moderate facet arthrosis. Central canal and left neural foramen are patent. Mild right foraminal narrowing is unchanged. L1-L2: Egqi-mk-ymqnbzkk intervertebral disc space narrowing with small circumferential disc osteophyte complex. Moderate facet arthrosis. Central canal and right neural foramen are patent. There is unchanged mild left foraminal narrowing. L2-L3: Discectomy. Spondylotic spurring with facet arthrosis. Neural foramen are suboptimally visualized secondary to artifact from the hardware. There is at least mild bilateral foraminal narrowing. Central canal is patent. L3-L4: Severe intervertebral disc space narrowing with degenerative partial bony fusion. Circumferential disc osteophyte complex with facet arthrosis. Central canal is patent. Suboptimal visualization of the neural foramen. There is nsxu-gz-unufnzze bilateral foraminal narrowing, which is unchanged. L4-L5: AP dimension of the thecal sac measures 6 mm. Srsyvswm-io-jkupcr central canal stenosis is similar to prior. Epaeokxx-ta-aehktl intervertebral disc space narrowing with circumferential disc osteophyte complex. Ligamentum flavum thickening with advanced facet arthrosis. Mtjmhkbq-yr-wvicea left with moderate right foraminal narrowing is unchanged. L5-S1: Progressively worsened lbzl-mo-fdjbnvvt posterior intervertebral disc space narrowing with mild spondylitic spurring. There is a central/right paracentral 9 x 10 x 9 mm disc extrusion versus sequestered disc fragment with superior migration on image 30 series 7 and image 14 series 4. Additionally, there is a 1.1 x 0.9 x 1.3 cm synovial cyst within the left posterior lateral epidural space, which is new from prior. All these findings in conjunction cause severe central canal stenosis with AP dimension of the thecal sac measuring 2 mm. There is an additional disc extrusion versus sequestered disc fragment within the left lateral recess/left paracentral distribution measuring up to 12 mm on image 30 series 7 with superior migration. Severe bilateral foraminal stenosis. IMPRESSION: 1. Motion degraded exam. 2. Progressively worsened discogenic degeneration at L5-S1 with disc extrusions versus sequestered disc fragments and a posterior epidural synovial cyst contributing to cause severe central canal and bilateral foraminal narrowing. 3. Moderate marrow and paravertebral edema at L5-S1 is likely de generative/reactive. 4. Additional discogenic degeneration with postoperative changes of the lumbar spine are generally unchanged compared to the study from 10/27/2023. ACT 112: Negative or not required by law. The above report was generated using voice recognition software. It may contain grammatical, syntax or spelling errors. Dictated: 05/16/2024 12:58 PM Transcribed: 05/16/2024 1:32 PM Patrick [id number] [email or web address] Electronically signed by: Bruno Wheeler M.D. 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
[2024-05-16] MEDS: HYDROmorphone INJ 0.5 MG/0.5 ML SYR IV PRN (18:16)
[2024-05-16] MEDS: SUCRALFATE 1 GM/10 ML UDC PO SCH (18:16)
[2024-05-16] MEDS: dexAMETHasone 4 MG in SYRINGE 0 ML IV SCH (18:17)
[2024-05-17 06:10] LABS: Hematocrit (blood only) 27.6 % (42.0-52.0); Hemoglobin 8.7 g/dl (14.0-18.0); Mean Corpuscular Hemoglobin 29.5 pg (25.0-34.0); Mean Corpuscular Hgb Conc 31.5 g/dL (32.0-36.0); Mean Corpuscular Volume 93.6 fL (80.0-100.0); Mean Platelet Volume 10.9 fL (9.4-12.4); Nucleated RBC # (auto) 0.03 K/uL (0.00-0.12); Nucleated RBC % (auto) 0.4 %; Platelet Count 260 K/uL (130-400); RDW Coefficient of Variation 21.3 % (11.5-14.5); RDW Standard Deviation 73.7 fL (36.4-46.3); Red Blood Count 2.95 M/uL (4.70-6.10); White Blood Count 8.44 K/ul (4.8-10.8)
[2024-05-17 06:40] LABS: BUN Creatinine Ratio 22.2 (10-20); Calcium 9.1 mg/dl (8.6-10.3); Potassium 6.2 mmol/L (3.5-5.1)
[2024-05-17] MEDS ORDERED: INSULIN HUMAN REGULAR PER UNIT 10 UNITS in SYRINGE 0 ML IV STA (07:15)
[2024-05-17] MEDS ORDERED: STAT IV/IM STA (07:16)
[2024-05-17] MEDS: INSULIN ASPART PER UNIT CHARGE SC STA (07:25)
[2024-05-17] MEDS: SODIUM ZIRCONIUM CYCLOSILICATE 10 GM PACKET PO SCH (07:41)
[2024-05-17] MEDS: DEXTROSE 50% 50 ML SYRINGE IV ONE (07:52)
[2024-05-17] MEDS: INSULIN HUMAN REGULAR PER UNIT 10 UNITS in SYRINGE 9.9 ML IV ONE (07:52)
[2024-05-17] MEDS: SODIUM BICARBONATE 8.4% 75 MEQ in SODIUM CHLORIDE 0.45 % 1,000 ML IV SCH (07:52)
[2024-05-17] MEDS: CALCIUM GLUCONATE 1,000 MG/60 ML BAG IV STA (07:54)
--- NOTE | 2024-05-17 08:23 | Orthopedic Progress Note ---
Date of Service May 17, 2024 Assessment & Plan (1) Left lumbar radiculopathy: Plan: Patient willing to proceed with surgical intervention once medically stable. Surgery requires hardware removal L2-3, L3-4, decompression and fusion L4-5, L5- S1 with instrumented fusion L2-S1. Plavix has been held. Will await input from a cardiac standpoint today. N.p.o. after midnight. Medical team currently addressing hyperkalemia as well. Admission and Anticipated Discharge Date Admission Date: May 14, 2024 Subjective Patient is currently being moved to PCU. He biggest complaint is still left lower extremity pain and weakness. I have reviewed with him details of surgical intervention currently planned for tomorrow. Patient's labs show hyperkalemia this morning. Currently undergoing cardiac EKG and echo this morning Review of Systems Review of Systems: All systems reviewed & are unremarkable except as noted in HPI & below Physical Exam Physical Exam: Alert and oriented x 3 no acute distress Strength unchanged bilateral lower extremities Results & Data Vital Signs (Past 12 Hours) Vital Signs Temp Pulse Resp BP BP Pulse Ox O2 Del Method 05/17/24 07:24 36.6 C 66 16 173/102 H 94 Room Air 05/17/24 04:35 36.3 C L 91 H 16 186/96 H 92 Room Air 05/16/24 20:24 36.7 C 90 18 152/83 H 91 Room Air
--- NOTE | 2024-05-17 08:36 | Hospitalist Progress Note ---
Date of Service May 17, 2024 Assessment & Plan (1) Left lumbar radiculopathy: Plan: 2nd to severe spinal stenosis at L5-S1, with mod-severe L4-L5 stenosis as well Likely the L5-S1 disease is the main culprit, however Ongoing severe LLE pain despite recent injection performed at [facility] in [place] in April 2024 He is already on gabapentin 600mg TID + cymbalta 60mg BID to help with neuropathic pain Morphine IV has been unhelpful Tramadol PO prn has been unhelpful IV dilaudid 0.25mg prn somewhat helpful Although he had gastric ulcers on 04/12/24 EGD, he has had 4+ weeks of time for these to heal with PPI bid Thus, added steroids cautiously as this may help reduce inflammation particularly at L5-S1 Continue Dexamethasone 4mg BID IV Continue Carafate QID to his PPI BID to help with GI prophylaxis Dr Brown from ortho-spine has seen Mr Wright in consultation To OR on 05/18/24 for decompression-fusion at L4-S1 along with removal of old hardware from prior spine surgery With respect to readiness for surgery from a cardiopulmonary standpoint - * [place] [facility] [place] [place] [facility] - last visit was 01/2024 - was doing well from CAD/cardiac standpoint * ECHO: L ventricular systolic function normal; no regional wall motion abnormalities; moderate LVH, EJ 60-65%; prosthetic aortic valve well seated; gradient normal for prosthetic aortic valve; mild mitral regurg.; compared with study of 06/15/2023, no significant change * known valvular disease with prior h/o AVR - Echo updated 05/17 * known h/o systolic CHF 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 Patient on Metformin and Glimepiride at home as well as Lantus 20u daily - both PO agents on hold cont lantus cont novolog adjust both accordingly due to addition of steroids Corrected Na 136 (05/17) (4) Myelodysplasia (myelodysplastic syndrome): Plan: has been anemic dating back to well before 2019 records indicate he has MDS H/H about baseline today at risk of needing PRBCs this admission in setting of extensive upcoming back surgery needed; B+ blood type Fe studies today show adequate stores B12/folate levels in March 2024 were wnl follow CBC while here, at baseline (5) BPH w urinary obs/LUTS: Plan: cont flomax cont finasteride fortunately his spinal stenosis does not appear to be causing retention issues at this time (6) Gastric ulcer: Plan: seen on EGD 04/12/[address] Marques likely due to chronic plavix, etc plavix on hold due to need for L-spine surgery on PPI twice daily Added carafate QID in light of addition of steroids for #1 (7) CAD, multiple vessel: Plan: most recent cath - 01/15/2021: Mid LAD stent patent. Patent proximal and mid OM1 stents. Small superior branch of OM1 with probable moderate ostial CAD, approximately 50-70%. Anterior takeoff of dominant RCA. Proximal RCA 30%. Proximal RCA stent mild in stent restenoses. Mid RCA 30-40%. Mid RCA stent mild InStent restenosis with distal margin approximately 40%. Distal RCA 40%. Distal RCA stent patent. was to be on DAPT per 01/2024 cardiology note - looks like only taking plavix - placed on hold for surgery for #1 ; will inform cardiology of such Received recs to start pt on ASA 81 mg daily; Dr. Brown OK with this decision even in setting of surgery tomorrow Start ASA 81 mg qd cont statin cont coreg BID no recent ischemic symptoms (8) S/P coronary artery stent placement: Plan: multiple PCIs in the past per records (9) Aneurysm of ascending aorta: Plan: 03/2024 CT -- 4.6cm in diameter at that time no repeat imaging needed at the moment (10) S/P aortic valve replacement with bioprosthetic valve: Plan: Bioprosthetic aortic valve replacement 12/14/2011 Echo updated 05/17: L ventricular systolic function normal; no regional wall motion abnormalities; moderate LVH, EJ 60-65%; prosthetic aortic valve well seated; gradient normal for prosthetic aortic valve; mild mitral regurg.; compared with study of 06/15/2023, no significant change only soft systolic murmur on exam today (11) COPD (chronic obstructive pulmonary disease): Plan: no exacerbation at this time cont bronchodilators prn (12) Pacemaker: Plan: upgraded to BiV pacer [address] Kevan Choi most recent interrogation with normal function will obtain another interrogation in prep for surgery to exclude any recent dysrhythmia, etc Plan Chronic Medical Conditions: Hyperlipidemia - -Continue Atorvastatin 40mg po qHS Anxiety - chronic/stable -Continue Buspirone 30mg po TID - of note, this amount exceeds recommended dosing for Buspirone. Dose confirmed Dementia - chronic/stable, no agitation or superimposed delirium at this time -Continue Aricept and Namenda PTSD - patient follows at the [facility] with Dr. Taylor -Continue Lamictal -Continue Duloxetine Hyperkalemia- Seems to be a chronic occurrence; K at admission 5.3 -> 6.2 -> 5.8; utilizing potassium binders, bicarb infusion and trending K. DVT proph - hold chemical means since he will be going to OR next 48 hours Pt's is aware of plan for OR on 05/[address] Brown for his lumbar spinal stenosis Admission and Anticipated Discharge Date Admission Date: May 14, 2024 Supervising Physician Co-Signing Physician Notes Attending Attestation & Progress Note: Pt seen/examined, chart reviewed, care plan d/w LI Franco. I agree with the dye components of her documentation. During my visit pt's daughter was at bedside. Pt's am K level was 6.2 necessitating insulin/D50, calcium gluconate, lokelma, and bicarb infusion. K level improved thru the day with such. No arrhythmia despite the high K. He has had high K levels in the past. Pt reports pain is better today. More comfortable. Still with LLE radicular pain but he can move around the bed more easily. He continues to chew tobacco. Denies any recent chest pain at rest or w/ activity. Denies dyspnea. Denies abd pain. He understands that his cardiopulmonary risk for his back surgery is very high due to numerous cardiopulmonary problems/diseases. Revised Conner Cardiac risk index is high at 15%. Tele - pacing overnight Echo - normal EF, normal bioprosthetic AV function, no regional wall motion abnormalities of LV Exam - gen - NAD, more comfortable today neck - no JVD heart - irregular, s1 s2, rate <100, 1/6 ONI LSB lungs - CTA b/l, minimal dry rales bases abd - soft NT ND BS+ ext - no edema, pulses 1+ b/l feet labs reviewed EKG this am - pacing, no change in T wave morphology A/P: 1. severe L-spine DJD/DDD with refractory LLE radicular pain and weakness - to OR tomorrow with Dr Brown for decompression/fusion/removal of hardware. 2. cardiopulmonary risk for back surgery - very high as expected, at least 15% cardiac risk based on revised Conner criteria. He & his family understand his risk and he wishes to proceed with surgery in light of the severity of #1. From a cardiac and pulmonary standpoint he is optimized at this time. He has had NO ischemic cardiac symptoms during the admission or in the months leading up to this admission. 3. CAD - no recent ischemic symptoms; echo with preserved EF and normal LV wall motion. I spoke with [place] [facility] [place] [place] [facility] [place] - stents were placed several years ago; ok to hold plavix perioperatively, but low-dose aspirin would be best to be continued during the post-op period. Ms Franco corresponded with Dr Brown and he is ok with asa 81mg daily. Cont all other cardiac meds. 4. COPD - no flare at this time. 5. AVR - normal function on echo today. 6. pacemaker status - normal interrogation 04/2024; repeat interrogation pending from today. But tele has been stable. 7. hyperkalemia - has had this problem on/off for several years. Did have a very mild TAYLOR but creatinine only peaked at 1.86. Does not seem that an increase to 1.8 would cause the K level to rise to >6. He chews tobacco all day - chewing tobacco contains large amounts of potassium -- is this issue being driven by a kidney issue (RTA?) and/or chewing tobacco?? Will ask patient to stop chewing tobacco. K level now at 5 s/p the interventions above. Can d/c bicarb drip. Cont lokelma TID. Would benefit from formal nephrology eval post-d/c. 8. uncontrolled T2DM - 2nd to steroids, etc. Adjust basal-bolus insulins. Family updated at bedside. NPO after MN tonight. Waldo Cotter MD Subjective Pt is resting in bed at time of visit. States that his pain is ongoing, but he is able to remain comfortable in certain positions. Reports no new symptoms including chest pain, SOB, N/V/D/C, abdominal pain, swelling. States that he feels ready for his surgery tomorrow, and is hopeful. Review of Systems Constitutional: no fatigue Respiratory: no dyspnea Cardiovascular: no chest pain and no palpitations Gastrointestinal: no abdominal pain, no nausea, no vomiting, no constipation and no diarrhea/loose stools Genitourinary: no dysuria Neurologic: no headache(s) LLE pain and weakness Physical Exam Constitutional: no acute distress Eyes: PERRL, conjunctivae normal, anicteric sclerae Wearing glasses ENMT: Ears: + hearing impairment Respiratory: normal respiratory effort, lungs clear to auscultation Cardiovascular: Rate/Rhythm: regular rate and regular rhythm Heart Sounds: normal S1, normal S2 and + murmur (systolic, very soft) Extremities: no edema Gastrointestinal (Abdomen): normal bowel sounds, soft, nontender, no hepatosplenomegaly Musculoskeletal: Extremities: + muscle atrophy (Bilateral lower extremity at level of calf) Results & Data Results & Data Vital Signs (Past 12 Hours) Vital Signs Temp Pulse Resp BP BP Pulse Ox O2 Del Method 05/17/24 08:27 36.7 C 82 20 168/95 H 96 Room Air 05/17/24 07:25 Nasal Cannula 05/17/24 07:24 36.6 C 66 16 173/102 H 94 Room Air 05/17/24 04:35 36.3 C L 91 H 16 186/96 H 92 Room Air Laboratory Results Abnormal lab results 05/16/24 05/16/24 05/16/24 Range/Units 11:47 16:31 20:28 RBC (4.70-6.10) M/uL Hgb (14.0-18.0) g/dl Hct (42.0-52.0) % MCHC (32.0-36.0) g/dL RDW Std Deviation (36.4-46.3) fL RDW Coeff of Linda (11.5-14.5) % Sodium (136-145) mmol/L Potassium (3.5-5.1) mmol/L BUN (6-23) mg/dl Creatinine (0.6-1.4) mg/dl BUN/Creatinine Ratio (10-20) Glucose (70-99(Fasting)) mg/dl POC Glucose 115 H 236 H 144 H (70-99) mg/dl 05/17/24 05/17/24 05/17/24 Range/Units 05:35 07:43 11:01 RBC 2.95 L (4.70-6.10) M/uL Hgb 8.7 L (14.0-18.0) g/dl Hct 27.6 L (42.0-52.0) % MCHC 31.5 L (32.0-36.0) g/dL RDW Std Deviation 73.7 H (36.4-46.3) fL RDW Coeff of Linda 21.3 H (11.5-14.5) % Sodium 134 L (136-145) mmol/L Potassium 6.2 H* (3.5-5.1) mmol/L BUN 32 H (6-23) mg/dl Creatinine 1.44 H D (0.6-1.4) mg/dl BUN/Creatinine Ratio 22.2 H (10-20) Glucose 204 H (70-99(Fasting)) mg/dl POC Glucose 200 H 324 H* (70-99) mg/dl Diagnostic Findings ECHO: L ventricular systolic function normal; no regional wall motion abnormalities; moderate LVH, EJ 60-65%; prosthetic aortic valve well seated; gradient normal for prosthetic aortic valve; mild mitral regurg.; compared with study of 06/15/2023, no significant change PG Care Time/CCT Total # of Minutes Spent Total Time Spent with Patient: Total time spent is greater than 50% in coordination of care (as documented) at patient's floor/unit and/or counseling patient: Coding Level of Care Code None Diagnoses Left lumbar radiculopathy M54.16 Lumbar spinal stenosis M48.061 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
[2024-05-17] MEDS: LANTUS PER UNIT CHARGE SQ SCH ×2 (09:57→20:20)
[2024-05-17 11:48] LABS: BUN Creatinine Ratio 22.1 (10-20); Creatinine Clr Calc Pharmacy 44.2 ml/min; Potassium 5.8 mmol/L (3.5-5.1)
--- NOTE | 2024-05-17 14:07 | XCELERA ---
[id number]
[2024-05-17] MEDS: ASPIRIN 81 MG ECTAB PO SCH (14:33)
--- NOTE | 2024-05-17 15:21 | Electrocardiogram Report ---
Test Reason : Blood Pressure : */* mmHG Vent. Rate : 87 BPM Atrial Rate : 87 BPM P-R Int : 128 ms QRS Dur : 160 ms QT Int : 424 ms P-R-T Axes : 66 251 82 degrees QTcB Int : 510 ms Atrial-sensed ventricular-paced rhythm Abnormal ECG When compared with ECG of 21-Mar-2024 21:18, Electronic ventricular pacemaker has replaced Sinus rhythm Confirmed by Donato Echeverria ([id number]) on 05/17/2024 3:20:36 PM Referred By: REFERRED SELF Confirmed By: Donato Echeverria
[2024-05-17 17:25] LABS: BUN Creatinine Ratio 21.3 (10-20); Calcium 9.2 mg/dl (8.6-10.3); Creatinine Clr Calc Pharmacy 43.9 ml/min
[2024-05-18 07:35] LABS: Hemoglobin 8.9 g/dl (14.0-18.0); Mean Corpuscular Hemoglobin 30.7 pg (25.0-34.0); Mean Corpuscular Volume 93.1 fL (80.0-100.0); Mean Platelet Volume 11.2 fL (9.4-12.4); Nucleated RBC # (auto) 0.05 K/uL (0.00-0.12); Nucleated RBC % (auto) 0.5 %; Platelet Count 278 K/uL (130-400); RDW Coefficient of Variation 21.5 % (11.5-14.5); RDW Standard Deviation 73.1 fL (36.4-46.3); White Blood Count 10.17 K/ul (4.8-10.8)
--- NOTE | 2024-05-18 07:52 | Billing Data ---
Date of Service May 17, 2024 Coding Level of Care Code 10544 SUB INP/OBS CARE
[2024-05-18 07:54] LABS: Prothrombin Time 10.9 Seconds (9.0-12.0)
[2024-05-18 08:00] LABS: BUN Creatinine Ratio 23.8 (10-20); Calcium 9.1 mg/dl (8.6-10.3); Creatinine Clr Calc Pharmacy 47.6 ml/min; Potassium 4.8 mmol/L (3.5-5.1)
--- NOTE | 2024-05-18 09:23 | History & Physical Bridge Note ---
Date of Service May 18, 2024 History & Physical Bridge Note I have examined the patient, reviewed the History & Physical and in the interval since the performance of the History & Physical I have noted the following changes of clinical significance: no changes noted Lumbar decompression and fusion L4-L5 L5-S1 with hardware removal L2-L4
--- NOTE | 2024-05-18 09:46 | Anesthesiology Consultation ---
Date of Service May 18, 2024 Assessment & Plan Chart Review Chart Review: Acceptable Risk for Surgery Consults Requested none History Surgery Operation Date: 05/18/24 09:35 Proposed Procedures p L4-L5, L5-S1 Decompression and Fusion, L2-L3-L4 Hardware Removal - Shaheed Brown, Height/Weight Height: 5 ft 9 in Weight: 82.9 kg Allergies Allergy/AdvReac Type Severity Reaction Status Date / Time bee venom protein (honey bee) Allergy Severe SWELLING Verified 04/18/24 13:01 Sulfa (Sulfonamide Allergy Intermediate "SULFA": Verified 04/18/24 13:01 Antibiotics) RASH Penicillins Allergy Unknown UNKNOWN Verified 04/18/24 13:01 lisinopril Allergy unknown Verified 04/18/24 13:01 reaction codeine AdvReac Intermediate HALLUCINATI Verified 04/18/24 13:01 NG meloxicam AdvReac renal Verified 04/18/24 13:01 failure Medications Home Medications Medication Instructions Recorded Confirmed Last Taken epinephrine 0.3 mg/0.3 mL 0.3 mg IM Q3H PRN Allergy Symptoms 10/21/18 05/14/24 Unknown injection, auto-injector (EpiPen) finasteride 5 mg tablet 5 mg PO QAM 10/21/18 05/14/24 04/12/24 atorvastatin 40 mg tablet (Lipitor) 40 mg PO HS 10/22/18 05/14/24 04/11/24 donepezil 10 mg tablet 10 mg PO QAM 10/22/18 05/14/24 04/12/24 lamotrigine 200 mg tablet 200 mg PO HS 10/22/18 05/14/24 04/11/24 acetaminophen 500 mg tablet 1,000 mg PO TID PRN Pain 03/18/20 05/14/24 Unknown (Tylenol Extra Strength) buspirone 30 mg tablet 30 mg PO TID 07/21/20 05/14/24 04/12/24 nitroglycerin 0.4 mg sublingual 0.4 mg sublingual Q5M PRN Chest 08/21/20 05/14/24 Unknown tablet (Nitrostat) Pain #30 tabs memantine 5 mg tablet 5 mg PO BID #180 tabs 11/05/21 05/14/24 04/12/24 cetirizine 10 mg tablet 10 mg PO DAILY PRN allergy 11/18/21 05/14/24 08/22/23 symptoms #30 tabs ondansetron HCl 8 mg tablet 8 mg PO Q12H PRN nausea and 01/12/22 05/14/24 Unknown vomiting #20 tabs hydrocortisone 2.5 % topical 1 applic topical HS PRN Itching 03/12/22 05/14/24 Unknown ointment #28.35 grams clopidogrel 75 mg tablet 75 mg PO HS 08/16/23 05/14/24 04/05/24 gabapentin 300 mg capsule 600 mg PO TID 01/25/24 05/14/24 04/12/24 albuterol sulfate 90 mcg/actuation 2 puff inhalation Q4H PRN 03/21/24 05/14/24 Unknown aerosol inhaler Shortness Of Breath Or Wheezing alfuzosin 10 mg tablet,extended 10 mg PO HS 03/21/24 05/14/24 04/11/24 release 24 hr budesonide 160 mcg-glycopyr 9 2 inh inhalation QAM 03/21/24 05/14/24 04/12/24 mcg-formot 4.8 mcg/actuation HFA inhaler (imedoztri Aerosphere) carvedilol 3.125 mg tablet 3.125 mg PO BID 03/21/24 05/14/24 04/12/24 mupirocin 2 % topical ointment 1 applic topical TID #15 grams 03/23/24 05/14/24 Unknown peg 3350-electrolytes 236 240 ml PO Q10M #4,000 mL 04/04/24 04/18/24 04/12/24 gram-22.74 gram-6.74 gram-5.86 gram solution (GaviLyte-G) diclofenac sodium 1 % topical gel 2 g topical QID PRN foot pain 04/05/24 05/14/24 Unknown dorzolamide (PF) 2 % (PF) eye drops 1 drp ophthalmic (eye) HS 04/05/24 05/14/24 Unknown glimepiride 1 mg tablet 1 mg PO UD 04/05/24 05/14/24 04/11/24 insulin glargine 100 unit/mL (3 18 - 24 unit subcut BID 04/05/24 05/14/24 04/11/24 mL) subcutaneous pen (Lantus Solostar U-100 Insulin) timolol maleate (PF) 0.5 % eye 1 drp ophthalmic (eye) HS 04/05/24 05/14/24 Unknown drops in a dropperette pantoprazole 40 mg tablet,delayed 40 mg PO BID #60 tabs 04/16/24 05/14/24 Unknown release duloxetine 60 mg capsule,delayed 60 mg PO BID #180 caps 04/23/24 05/14/24 Unknown release transport wheel chair #1 ea 05/03/24 Unknown Active Medications Generic Name Dose Route Start Last Admin Trade Name Freq PRN Reason Stop Dose Admin Acetaminophen 1,000 mg 05/14/24 22:03 05/18/24 06:00 Acetaminophen 500 Mg Tab PO 06/13/24 22:02 Not Given Q8 COLLIN Aspirin 81 mg 05/17/24 13:00 05/17/24 14:33 Aspirin 81 Mg Ectab PO 06/16/24 12:59 81 mg DAILY COLLIN Administration Atorvastatin Calcium 40 mg 05/14/24 22:03 05/17/24 20:24 Atorvastatin 40 Mg Tab PO 06/13/24 22:02 40 mg HS COLLIN Administration Buspirone HCl 30 mg 05/14/24 22:03 05/17/24 20:24 Buspirone 15 Mg Tab PO 06/13/24 22:02 30 mg TID COLLIN Administration Carvedilol 3.125 mg 05/14/24 22:03 05/17/24 20:24 Carvedilol 3.125 Mg Tab PO 06/13/24 22:02 3.125 mg BID COLLIN Administration Donepezil HCl 10 mg 05/15/24 09:00 05/17/24 07:42 Donepezil Hcl 10 Mg Tab PO 06/14/24 08:59 10 mg QAM COLLIN Administration Dorzolamide HCl 1 drops 05/14/24 22:03 05/17/24 20:24 Dorzolamide Hcl 2% Oph Soln 10 Ml Btl OP 06/13/24 22:02 1 drops HS COLLIN Administration Duloxetine HCl 60 mg 05/14/24 22:03 05/17/24 20:24 Duloxetine Hcl 60 Mg Cap PO 06/13/24 22:02 60 mg BID COLLIN Administration Ferrous Sulfate 325 mg 05/15/24 17:00 05/17/24 17:08 Ferrous Sulfate 325 Mg Tab PO 06/14/24 16:59 325 mg BIDM COLLIN Administration Finasteride 5 mg 05/15/24 09:00 05/17/24 07:42 Finasteride 5 Mg Tab PO 06/14/24 08:59 5 mg QAM COLLIN Administration Fluticasone/Vilanterol 1 puffs 05/15/24 14:00 05/17/24 07:41 Fluticasone/Vilanterol 200/25mcg 14 Puffs/Inhaler INH 06/14/24 13:59 1 puffs DAILY COLLIN Administration Gabapentin 600 mg 05/15/24 09:00 05/17/24 20:23 Gabapentin 600 Mg Tab PO 06/13/24 22:02 600 mg TID COLLIN Administration Hydromorphone HCl 0.25 mg 05/16/24 16:50 05/17/24 08:27 Hydromorphone Inj 0.5 Mg/0.5 Ml Syr IV 05/30/24 16:49 0.25 mg Q6H PRN Administration Pain Dexamethasone 4 mg/ Syringe 1 mls @ 1 mls/min 05/16/24 17:00 05/18/24 05:58 IV 06/15/24 16:59 1 mls/min Q12H COLLIN Administration Insulin Aspart 0 units 05/14/24 22:03 05/17/24 20:19 Insulin Aspart Per Unit Charge SC 06/13/24 22:02 7 units ACHS COLLIN Administration Insulin Glargine 10 units 05/17/24 21:00 05/17/24 20:20 Lantus Per Unit Charge SQ 06/16/24 20:59 10 units BID COLLIN Administration Lamotrigine 200 mg 05/14/24 22:03 05/17/24 20:23 Lamotrigine 100 Mg Tab PO 06/13/24 22:02 200 mg HS COLLIN Administration Protocol Latanoprost 1 drops 05/15/24 12:35 05/17/24 07:40 Latanoprost 0.005% Op Soln 2.5 Ml Btl OP 06/14/24 12:34 Not Given QAM COLLIN Memantine 5 mg 05/14/24 22:03 05/17/24 20:23 Memantine Hcl 5 Mg Tab PO 06/13/24 22:02 5 mg BID COLLIN Administration Miscellaneous 15 - 30 gm 05/14/24 22:03 05/15/24 19:00 Carbohydrates For Hypoglycemia PO 06/13/24 22:02 15 gm UD PRN Administration Hypoglycemia Protocol Ondansetron HCl 4 mg 05/14/24 22:03 05/16/24 12:22 Ondansetron Inj 2 Mg/Ml 2 Ml Vial IV 06/13/24 22:02 4 mg Q6H PRN Administration Nausea And Vomiting Pantoprazole Sodium 40 mg 05/14/24 22:03 05/17/24 20:23 Pantoprazole 40 Mg Tab PO 06/13/24 22:02 40 mg BID COLLIN Administration Sodium Zirconium Cyclosilicate 10 gm 05/17/24 09:00 05/17/24 20:20 Sodium Zirconium Cyclosilicate 10 Gm Packet PO 05/18/24 21:01 10 gm TID COLLIN Administration Sucralfate 1 gm 05/16/24 17:00 05/17/24 20:22 Sucralfate 1 Gm/10 Ml Udc PO 06/15/24 16:59 1 gm QID COLLIN Administration Tamsulosin HCl 0.4 mg 05/14/24 22:03 05/17/24 20:23 Tamsulosin Hcl 0.4 Mg Cap PO 06/13/24 22:02 0.4 mg HS COLLIN Administration Timolol Maleate 1 drops 05/15/24 12:30 05/17/24 07:40 Timolol Maleate 0.5% Op Soln 5 Ml Btl OP 06/14/24 12:29 Not Given QAM COLLIN NPO Date Last Intake of Fluids: 05/17/24 Time Last Intake of Fluids: 20:00 Date Last Intake of Solids: 05/17/24 Time Last Intake of Solids: 20:00 Past Medical History Medical History Acute alteration in mental status Foreign body of right heel Syncope and collapse happened once in 2020 Hx of squamous cell carcinoma Pulmonary embolism per "he never had one, thinks they ruled this out at one point in time" PTSD (post-traumatic stress disorder) PAD (peripheral artery disease) Orthostatic hypotension happens sometimes Myelodysplasia (myelodysplastic syndrome) Hip pain, left ongoing, radiates down to foot Lumbosacral radiculopathy at S1 Hyperlipidemia Generalized anxiety disorder Diabetes mellitus, type 2 per "not well controlled" Depression CKD (chronic kidney disease) unsure of stage Chronic low back pain Chronic anemia Cervicalgia hx, no current issues Neuropathy Carotid artery stenosis Cardiomyopathy Biventricular cardiac pacemaker in situ Asthma with COPD daily and prn inh Ascending aortic aneurysm monitoring currently; f/u dr. segura, [facility] [place] Hx-TIA (transient ischemic attack) 2019, slurred speech and confusion, brought to [facility]>no residual symtoms History of COVID-19 2019, tested thru PCP, not hosp; mild symptoms-diarrhea, cold symptoms>resolved Chronic bronchitis Leukocytosis hx CARTER (dyspnea on exertion) chronic Bicuspid aortic valve replaced with bioprosthetic valve Dementia "mild" BPH (benign prostatic hyperplasia) HTN (hypertension), benign CAD (coronary artery disease) Myocardial infarction 2011, SOB w/chest tightness and pain into shoulder and jaw, phan general, had cardiac cath w/2 stents Past Family History Family History Sister Anxiety Brother Alcohol abuse Father Cardiac disorder Myocardial infarction Mother Depression Kidney disease Lung disease Stroke Other Family history non-contributory Denies family history of Ovarian cancer Prostate cancer Breast cancer Colorectal cancer Past Surgical History Surgical History Hx of squamous cell carcinoma excision hand S/P cardiac pacemaker procedure History of back surgery x2, 05/10/2020 Grade 2 view with Mac 3 blade; both lower back History of tonsillectomy History of repair of rotator cuff right S/P right knee surgery H/O endoscopic retrograde cholangiopancreatography History of colonoscopy Hx of cholecystectomy H/O cardiac catheterization ~2001, SOB w/chest tightness, [facility], x2 stents; 2002, SOB w/chest tightness, [place], x2; 2003, SOB w/chest tightness, [place], x1 stent; 2004, SOB w/chest tightness, [place], x1 stent; 2009, SOB w/chest tightness, [place], x2 stents; 2011, SOB w/chest tightness, [facility], x1 stent; 2013, SOB w/chest tightness, x2 stents, [place]; 2015, SOB w/chest tightness, [place], x1 stent; 2017, SOB w/chest tightness, x2 stents; 2019, SOB w/chest tightness, [facility], x4 stents; f/u S/P aortic valve replacement 2011, [facility]; f/u dr. segura Social History Smoking Status: Current some day smoker tobacco type: cigarettes Smoking cigarettes per day: maybe 5-10 cigarettes per month Do You Dip or Chew Tobacco: Yes Hx Alcohol Use: Yes Alcohol type: beer and hard liquor alcohol intake frequency: holidays/special occasions only Hx Substance Use: No substance use type: does not use Physical Exam Vital Signs Last Vital Signs Temp 36.6 C 05/18/24 08:37 Pulse 88 05/18/24 08:37 Resp 18 05/18/24 08:37 BP 182/85 H 05/18/24 08:37 Pulse Ox 99 05/18/24 08:37 O2 Del Method Room Air 05/18/24 08:37 Testing Laboratory Results 05/18/24 06:20 05/18/24 06:20 PT 10.9 Seconds (9.0-12.0) 05/18/24 06:20 INR 1.0 (0.9-1.1) 05/18/24 06:20 Urine Color Dark Yellow 05/15/24 01:30 Urine Appearance Clear (Clear) 05/15/24 01:30 Urine pH 5.5 (4.5-7.5) 05/15/24 01:30 Ur Specific [place] 1.022 (1.000-1.030) 05/15/24 01:30 Urine Protein 1+ (Negative) H 05/15/24 01:30 Urine Glucose (UA) 1+ (Negative) H 05/15/24 01:30 Urine Ketones Trace (Negative) H 05/15/24 01:30 Urine Nitrite Negative (Negative) 05/15/24 01:30 Ur Leukocyte Esterase Negative (Negative) 05/15/24 01:30 Urine WBC (Auto) 0-5 /hpf (0-5) 05/15/24 01:30 Urine RBC (Auto) 0-2 /hpf (0-2) 05/15/24 01:30 U Hyaline Cast (Auto) 3-5 /lpf (0-2) H 05/15/24 01:30 U Epithel Cells (Auto) 0-2 /hpf (0-2) 05/15/24 01:30 Urine Bacteria (Auto) None Seen (None Seen) 05/15/24 01:30 Blood Type B Positive 05/18/24 06:20 Antibody Screen NEGATIVE 05/18/24 06:20 05/18/24 05/18/24 08:47 08:14 POC Glucose 228 H 223 H
[2024-05-18] MEDS ORDERED: PROMETHAZINE HCL 6.25 MG in SODIUM CHLORIDE 0.9% 50 ML IV PRN (09:47)
[2024-05-18] MEDS ORDERED: ONDANSETRON INJ 2 MG/ML 2 ML VIAL IV PRN ×2 (09:47→15:39)
[2024-05-18] MEDS ORDERED: ePHEDrine sulfate 50 MG/ML AMP IV PRN (09:47)
[2024-05-18] MEDS ORDERED: fentaNYL citrate PF 100 MCG/2 ML VIAL IV PRN (09:47)
[2024-05-18] MEDS ORDERED: ATROPINE SULFATE 0.1 MG/ML 10ML SYR IV PRN (09:47)
[2024-05-18] MEDS: ceFAZolin 2000MG 2,000 MG/15 ML SYR IV ONE (09:49)
[2024-05-18] MEDS: BUPIVACAINE/EPINEPHRINE 0.25% 1:200,000 30 ML VIAL ONE (10:51)
[2024-05-18] MEDS: ceFAZolin 2,000 MG/15 ML IV PUSH IV ONE (10:52)
[2024-05-18] MEDS: FLOSEAL HEMOSTATIC MATRIX 10ML TOP ONE (12:17)
[2024-05-18] MEDS: ceFAZolin 330 MG/ML 1 GM VIAL ONE (12:18)
--- NOTE | 2024-05-18 12:29 | Operative Report ---
Post Operative Report Pre & Post Diagnosis Operation Date: 05/18/24 09:35 Pre-Op Diagnosis: Lumbar disc herniation with radiculopathy Lumbar facet cyst L5-S1 Post-Op Diagnosis: Same I identified the patient and participated in the time-out.: Yes Procedure Operation Date: 05/18/24 09:35 Actual Procedures #1 removal of posterior instrumentation L2-L4. #2 exploration of fusion L2-L4. #3 excision of extradural mass L5-S1. #4 lumbar decompression with bilateral medial facetectomies and foraminotomies L4-L5 L5-S1. #5 posterior spinal fusion L4-S1. #6 interbody fusion L5-S1. #7 placement is #6 placement of posterior instrumentation L2-S1. #7 interbody fusion L5-S1. #8 placement of Spira 14 x 26 mm x 2 at L5-S1. #9 placement locally harvested morselized autograft posterior gutters. #10 placement of infuse collagen sponge, with Koros in the posterior lateral gutters and os design in the interbody space. #11 application of versa wrap over the exposed dura. Surgeon Shaheed Brown, DO [facility] Maria Victoria Colvin Estimated Blood Loss 1,000 Findings See Below The patient had an EBL over 1000 cc. The patient's scope of procedure combined with EBL created significant technical difficulty adding these 50% increased operative time. Specimens None Indications This is a 78-year-old male presents with the above-mentioned diagnosis inability ambulate and here for surgical invention. Description of Procedure Patient was met with identified informed consent obtained. Patient was then taken to the operative suite underwent intubation placed in a prone position on the Lester table on top of the Chava frame. All bony promises well-padded eyes inspected showing no external precipice upon them. Lumbar spine was prepped and draped no sterile fashion. Sharp dissection with assistance bradycardia form down to and exposing the lamina transverse processes and instrumentation at L to L3-L4-L5 and the sacral ala bilaterally. I then remove the hardware at L2-L3-L4 bilaterally explored the fusion mass noting it to be mature and intact. Informed complete laminectomy of L5 with excision of extradural mass on the left creating significant thecal encroachment. This was followed by medial facetectomies and foraminotomies and removal of herniated free fragments.. Laminectomy of L4 with bilateral medial facetectomies and foraminotomies addressing severe spinal stenosis. Pedicle screws were then placed in L2 L4-L5 and S1 levels bilaterally with assistance of fluoroscopy and proper size annette placed. By way of a transforaminal approach on the left discectomy of L5-S1 was performed endplates guarded to subcortical and bone and a 14 x 26 mm spiral cage filled with os design bone graft tapped position. Then proceeded the right transforaminal region at L5-S1. Discectomy performed endplates guarded to subcortical big bone and a second 14 x 26 mm spiral cage filled with os design tapped in position. The rods then compressed locked in final position bilaterally. The transverse processes of L4-L5 and the sacral ala burred to subcortical bleeding bone. Infuse collagen sponge, with Koros and local autograft placed in the posterior lateral gutters. Versa wrap placed over the exposed dura. 15 round NASEEM drain inserted. The incision was then closed with 1 Vicryl the fascia 2-0 Vicryl subcutaneously and 4 Monocryl for final skin closure. Steri-Strips sterile dressing placed. Patient waken taken the PACU stable condition. Please note spinal cord monitoring was utilized at the procedure no changes noted. Lastly Maria Victoria Colvin was present at the entire procedure involved the patient positioning complex portion of the surgery and final skin closure. I attest to the content of the Intraoperative Record and any orders documented therein. Any exceptions are noted below.
[2024-05-18] MEDS ORDERED: MIDAZOLAM HCL 1 MG/ML 2ML VIAL ONE (12:33)
[2024-05-18] MEDS ORDERED: fentaNYL citrate PF 100 MCG/2 ML VIAL ONE (12:33)
[2024-05-18] MEDS: NovoLIN-R INSULIN PER UNIT CHARGE SQ STA (13:06)
--- NOTE | 2024-05-18 13:16 | Fluoroscopy Report ---
FL lumbar spine 2-3V CLINICAL HISTORY: Hardware removal and L4-S1 decompression and fusion. COMPARISON STUDY: Lumbar spine MRI May 16, 2024. FLUOROSCOPY TIME: 18 seconds. matt Vyas: 17.33 mGy FLUOROSCOPIC IMAGES: 2 FINDINGS: Fluoroscopy was provided during hardware removal with subsequent L5-S1 discectomy and L4-S1 decompression and fusion. IMPRESSION: Fluoroscopy provided during hardware removal with subsequent L5-S1 discectomy and L4-S1 decompression and fusion. ACT 112: Negative or not required by law. Electronically signed by: Duncan Fonseca M.D. 05/18/2024 1:14 PM
[2024-05-18 13:19] LABS: Hemoglobin 7.4 g/dl (14.0-18.0)
[2024-05-18] MEDS: HYDROmorphone INJ 2 MG/ML SYR/VIAL IV PRN (13:20)
[2024-05-18] MEDS ORDERED: SODIUM CHLORIDE 0.9% 250 ML IV PRN (14:06)
[2024-05-18] MEDS: INSULIN HUMAN REGULAR SC STA (14:15)
--- NOTE | 2024-05-18 14:18 | Anesthesiology Progress Note ---
Date of Service May 18, 2024 Anesthesia Post Procedure Vital Signs Vital Signs: Temp Pulse Pulse Pulse Pulse Resp BP 05/18/24 13:55 70 19 97/61 L 05/18/24 13:45 68 18 114/55 L 05/18/24 13:35 68 18 101/53 L 05/18/24 13:25 71 18 111/62 05/18/24 13:15 72 20 131/71 05/18/24 13:05 70 19 146/80 H 05/18/24 12:55 69 18 171/75 H 05/18/24 12:45 36.1 C L 69 21 170/53 H 05/18/24 10:27 70 05/18/24 09:56 05/18/24 08:37 36.6 C 88 18 182/85 H 05/18/24 08:15 36.6 C 85 22 05/18/24 03:33 100 H 05/18/24 02:15 36.7 C 89 20 05/17/24 22:09 36.8 C 104 H 20 05/17/24 20:19 05/17/24 19:18 36.4 C L 86 20 05/17/24 19:15 05/17/24 14:18 65 BP Pulse Ox O2 Del Method O2 Flow Rate 05/18/24 13:55 97 Nasal Cannula 2 05/18/24 13:45 93 Nasal Cannula 2 05/18/24 13:35 98 Nasal Cannula 2 05/18/24 13:25 98 Nasal Cannula 2 05/18/24 13:15 100 Nasal Cannula 2 05/18/24 13:05 95 Room Air 05/18/24 12:55 99 Room Air 05/18/24 12:45 99 Oxymask 6 05/18/24 10:27 05/18/24 09:56 Room Air 05/18/24 08:37 99 Room Air 05/18/24 08:15 143/98 H 95 Room Air 05/18/24 03:33 05/18/24 02:15 174/86 H 94 Room Air 05/17/24 22:09 135/74 93 Room Air 05/17/24 20:19 140/90 05/17/24 19:18 98 Room Air 05/17/24 19:15 Room Air 05/17/24 14:18 Pain Intensity Left Hip: Pain Intensity: 10 Left Leg: Pain Intensity: 10 Back: Pain Intensity: 8 Transfer of Care Handoff Completed per policy Notes Mental Status: alert / awake / arousable and participated in evaluation Patient Amnestic to Procedure: Yes Nausea / Vomiting: adequately controlled Pain: adequately controlled Airway Patency, RR, SpO2: stable & adequate BP & HR: stable & adequate Hydration State: stable & adequate Anesthetic Complications: no major complications apparent Notes: Surgery uneventful except pt had significant blood loss, approximately 1000cc. Hgb 7.4g% in PACU. Pt has been awake, confused in PACU. Discussed w surgeon and agreed to transfuse pt 2 units PRBCs. Transfusion ordered and is pending. Otherwise VSS and may have transfusion completed on med-surg unit.
[2024-05-18] MEDS: NovoLIN-R INSULIN PER UNIT CHARGE ONE ×2 (14:25→15:52)
--- NOTE | 2024-05-18 14:56 | Hospitalist Progress Note ---
Date of Service May 18, 2024 Assessment & Plan (1) Left lumbar radiculopathy: Plan: 2nd to severe spinal stenosis at L5-S1, with mod-severe L4-L5 stenosis as well Likely the L5-S1 disease is the main culprit, however - Presented with ongoing severe LLE pain despite recent injection performed at [facility] [place] in April 2024 - He is already on gabapentin 600mg TID + cymbalta 60mg BID to help with neuropathic pain - Pain medications trialed in hospital, all with minimal relief; Morphine IV, Tramadol PO prn, IV dilaudid 0.25mg prn - Gastric ulcers on 04/12/24 EGD, he has had 4+ weeks of time for these to heal with PPI bid; steroids OK to add cautiously to reduce inflammation at L5-S1 - Continue Dexamethasone 4mg BID IV - Continue Carafate QID to his PPI BID to help with GI prophylaxis Dr Brown from ortho-spine has seen Mr Wright in consultation - To OR on 05/18/24 for decompression-fusion at L4-S1 along with removal of old hardware from prior spine surgery - Sx procedure includes removal of posterior instrumentation L2-L4; exploration of fusion L2-L4; excision of extradural mass L5-S1; lumbar decompression with bilateral medial facetectomies and foraminotomies L4-L5 L5-S1; posterior spinal fusion L4-S1; interbody fusion L5-S1; placement is #6 placement of posterior instrumentation L2-S1; interbody fusion L5-S1; placement of Spira 14 x 26 mm x 2 at L5-S1; placement locally harvested morselized autograft posterior gutters; placement of infuse collagen sponge, with Koros in the posterior lateral gutters and os design in the interbody space; application of versa wrap over the exposed dura. - EBL 1,000 cc; receiving 2 transfusions as of now - CBC + BMP 1 hour after transfusions completed - With respect to readiness for surgery from a cardiopulmonary standpoint - * follows with [facility] - last visit was 01/2024 - was doing well from CAD/cardiac standpoint * ECHO: L ventricular systolic function normal; no regional wall motion abnormalities; moderate LVH, EJ 60-65%; prosthetic aortic valve well seated; gradient normal for prosthetic aortic valve; mild mitral regurg.; compared with study of 06/15/2023, no significant change * known valvular disease with prior h/o AVR - Echo updated 05/17 * known h/o systolic CHF 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 - Patient on Metformin and Glimepiride at home as well as Lantus 20u daily - both PO agents on hold - cont lantus - cont novolog - adjust both accordingly due to addition of steroids - Corrected Na 136 (05/17) (4) Myelodysplasia (myelodysplastic syndrome): Plan: has been anemic dating back to well before 2019 - records indicate he has MDS - H/H about baseline today - at risk of needing PRBCs this admission in setting of extensive upcoming back surgery needed; B+ blood type - Fe studies today show adequate stores - B12/folate levels in March 2024 were wnl - Follow CBC while here, at baseline - EBL during Sx 1,000 cc; H/H 7.4/23.0; under surgical services currently (5) BPH w urinary obs/LUTS: Plan: cont flomax and finasteride - fortunately his spinal stenosis does not appear to be causing retention issues at this time (6) Gastric ulcer: Plan: seen on EGD 04/12/[address] Marques - likely due to chronic plavix, etc - plavix on hold due to need for L-spine surgery - on PPI twice daily - Added carafate QID in light of addition of steroids for #1 (7) CAD, multiple vessel: Plan: most recent cath - 01/15/2021: Mid LAD stent patent. Patent proximal and mid OM1 stents. Small superior branch of OM1 with probable moderate ostial CAD, approximately 50-70%. Anterior takeoff of dominant RCA. Proximal RCA 30%. Proximal RCA stent mild in stent restenoses. Mid RCA 30-40%. Mid RCA stent mild InStent restenosis with distal margin approximately 40%. Distal RCA 40%. Distal RCA stent patent. - was to be on DAPT per 01/2024 cardiology note - looks like only taking plavix - placed on hold for surgery for #1 ; will inform cardiology of such - Received recs to start pt on ASA 81 mg daily; Dr. Brown OK with this decision even in setting of surgery tomorrow - Continue ASA 81 mg qd - cont statin - cont coreg BID - no recent ischemic symptoms (8) S/P coronary artery stent placement: Plan: multiple PCIs in the past per records (9) Aneurysm of ascending aorta: Plan: 03/2024 CT -- 4.6cm in diameter at that time - no repeat imaging needed at the moment (10) S/P aortic valve replacement with bioprosthetic valve: Plan: Bioprosthetic aortic valve replacement 12/14/2011 - Echo updated 05/17: L ventricular systolic function normal; no regional wall motion abnormalities; moderate LVH, EJ 60-65%; prosthetic aortic valve well seated; gradient normal for prosthetic aortic valve; mild mitral regurg.; compared with study of 06/15/2023, no significant change - only soft systolic murmur on exams (11) COPD (chronic obstructive pulmonary disease): Plan: no exacerbation at this time - cont bronchodilators prn (12) Pacemaker: Plan: upgraded to BiV pacer [address] Kevan Choi - most recent interrogation with normal function - interrogation completed in prep for surgery to exclude any recent dysrhythmia, etc Plan Chronic Medical Conditions: Hyperlipidemia - -Continue Atorvastatin 40mg po qHS Anxiety - chronic/stable -Continue Buspirone 30mg po TID - of note, this amount exceeds recommended dosing for Buspirone. Dose confirmed Dementia - chronic/stable, no agitation or superimposed delirium at this time -Continue Aricept and Namenda PTSD - [facility] -Continue Lamictal -Continue Duloxetine Hyperkalemia- Seems to be a chronic occurrence; K at admission 5.3 -> 6.2 -> 5.8; utilizing potassium binders, bicarb infusion and trending K. DVT proph - hold chemical means since he will be going to OR next 48 hours; will restart with at home plavix once OK to do so Code: Full Admission and Anticipated Discharge Date Admission Date: May 14, 2024 Supervising Physician Co-Signing Physician Notes Attending Attestation & Progress Note: Pt seen/examined, chart reviewed, care plan d/w LI Franco. I agree with the dye components of her documentation with 2 additional diagnoses - * acute blood loss anemia * TAYLOR Saw patient post-op from his extensive lumbar back surgery by Dr Brown. Had intra-op hypotension per the record as well as 1000cc+ of blood loss. s/p 1 unit PRBCs; getting 2nd unit while I was seeing him. He denies any leg pain b/l. Denies chest pain or dyspnea. Mild operative site pain. Exam - gen - NAD, lying flat in bed comfortably neck - no JVD heart - irregular, s1 s2, rate <100, 1/6 ONI LSB lungs - CTA b/l abd - soft NT ND BS+ ext - no edema, pulses 1+ b/l feet, warm feet & extremities A/P: 1. severe L-spine DJD/DDD with refractory LLE radicular pain and weakness - s/p extensive l-spine surgery today by Dr Brown - appreciate his assistance. 2. acute blood loss anemia 2nd to surgery for #1 - Tx 2 units of PRBCs; post-Tx H/H, Tx additional units if Hb <8. 3. mild TAYLOR - 2nd to intra-op hypotension - transfuse PRBCs, fluids if needed, serial BMPs. 4. CAD - no felicity-operative ischemic symptoms. Cont asa 81mg daily. Cont all other cardiac meds. 5. COPD - no flare at this time. Stable. O2 sats wnl. 6. AVR - normal function on echo this admission. 7. hyperkalemia - has had this problem on/off for several years. Did have a very mild TAYLOR but creatinine only peaked at 1.86. Does not seem that an increase to 1.8 would cause the K level to rise to >6. He chews tobacco all day - chewing tobacco contains large amounts of potassium -- is this issue being driven by a kidney issue (RTA?) and/or chewing tobacco?? Will ask patient to stop chewing tobacco. K level now at 4.8 this am. Cont lokelma TID for now but suspect we can stop tomorrow am. Would benefit from formal nephrology eval post-d/c. 8. uncontrolled T2DM - 2nd to steroids, etc. Adjust basal-bolus insulins again. Waldo Cotter MD Subjective Pt seen laying in bed at time of visit following recent surgical procedure. Family members were in the room at the time of visit as well. Pt was being transfused blood at this time. States that he feels "great" currently and continues to ask when he can go home. Denies chest pain, SOB, N/V. Reports that he has not followed up with any other providers since surgery was completed. Review of Systems Respiratory: no dyspnea Cardiovascular: no chest pain and no palpitations Gastrointestinal: no abdominal pain, no nausea and no vomiting Physical Exam ENMT: Ears: + hearing impairment Respiratory: normal respiratory effort, lungs clear to auscultation Cardiovascular: RRR, no murmur, no edema Gastrointestinal (Abdomen): normal bowel sounds, soft, nontender, no hepatosplenomegaly Musculoskeletal: Bilateral legs in SCDs Genitourinary: Catheter in place, pale yellow urine in bag, no sediment in tubing Results & Data Results & Data Vital Signs (Past 12 Hours) Vital Signs Temp Pulse Pulse Pulse Resp BP BP 05/18/24 14:45 36.6 C 75 18 94/53 L 05/18/24 14:35 75 15 90/55 L 05/18/24 14:25 36.5 C 71 14 86/52 L 05/18/24 14:25 36.6 C 71 14 101/53 L 05/18/24 14:15 72 23 101/53 L 05/18/24 14:05 72 17 83/51 L 05/18/24 13:55 70 19 97/61 L 05/18/24 13:45 68 18 114/55 L 05/18/24 13:35 68 18 101/53 L 05/18/24 13:25 71 18 111/62 05/18/24 13:15 72 20 131/71 05/18/24 13:05 70 19 146/80 H 05/18/24 12:55 69 18 171/75 H 05/18/24 12:45 36.1 C L 69 21 170/53 H 05/18/24 10:27 70 05/18/24 09:56 05/18/24 08:37 36.6 C 88 18 182/85 H 05/18/24 08:15 36.6 C 85 22 05/18/24 03:33 100 H BP Pulse Ox O2 Del Method O2 Flow Rate 05/18/24 14:45 92 Nasal Cannula 2 05/18/24 14:35 92 Nasal Cannula 2 05/18/24 14:25 95 Nasal Cannula 2 05/18/24 14:25 97 3 05/18/24 14:15 97 Nasal Cannula 2 05/18/24 14:05 95 Nasal Cannula 2 05/18/24 13:55 97 Nasal Cannula 2 05/18/24 13:45 93 Nasal Cannula 2 05/18/24 13:35 98 Nasal Cannula 2 05/18/24 13:25 98 Nasal Cannula 2 05/18/24 13:15 100 Nasal Cannula 2 05/18/24 13:05 95 Room Air 05/18/24 12:55 99 Room Air 05/18/24 12:45 99 Oxymask 6 05/18/24 10:27 05/18/24 09:56 Room Air 05/18/24 08:37 99 Room Air 05/18/24 08:15 143/98 H 95 Room Air 05/18/24 03:33 PG Care Time/CCT Total # of Minutes Spent Total Time Spent with Patient: Total time spent is greater than 50% in coordination of care (as documented) at patient's floor/unit and/or counseling patient: Coding [place] [id number] SUB INP/OBS CARE 3/50MIN Patient Type Established Medical Decision Making Moderate Complexity Diagnoses Left lumbar radiculopathy M54.16 Lumbar spinal stenosis M48.061 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
[2024-05-18] MEDS ORDERED: DEXAMETHASONE SOD INJ 4 MG/ML VIAL ONE (15:00)
[2024-05-18] MEDS ORDERED: PROPOFOL IV EMULSION 10 MG/ML 20 ML VIAL IV ONE (15:00)
[2024-05-18] MEDS ORDERED: ROCURONIUM BROMIDE 10 MG/ML 5 ML VIAL IV ONE (15:00)
[2024-05-18] MEDS ORDERED: LIDOCAINE 2% 2 ML VIAL/AMP(20MG/ML) INFIL ONE (15:00)
[2024-05-18] MEDS ORDERED: ONDANSETRON INJ 2 MG/ML 2 ML VIAL ONE (15:00)
[2024-05-18] MEDS ORDERED: LORazepam 2 MG/1 ML VIAL IV PRN (15:39)
[2024-05-18] MEDS ORDERED: METOCLOPRAMIDE HCL INJ 5 MG/ML 2 ML VIAL IV PRN (15:39)
[2024-05-18] MEDS ORDERED: FAMOTIDINE 20 MG TAB PO PRN (15:39)
[2024-05-18] MEDS ORDERED: HYDROmorphone INJ 1 MG/ML SYRINGE IV PRN (15:39)
[2024-05-18] MEDS ORDERED: PROMETHAZINE 12.5 MG/50.5 ML BAG IV PRN (15:39)
[2024-05-18] MEDS ORDERED: hydrOXYzine HCl 25 MG TAB PO PRN (15:39)
[2024-05-18] MEDS ORDERED: bisacodyL 10 MG SUPP PR PRN (15:39)
[2024-05-18] MEDS ORDERED: DO NOT ADMINISTER PNEUMOCOCCAL VACCINE PRN (15:39)
[2024-05-18] MEDS ORDERED: HYDROmorphone INJ 0.5 MG/0.5 ML SYR IV PRN (15:39)
[2024-05-18] MEDS ORDERED: LORazepam 0.5 MG TAB PO PRN (15:39)
[2024-05-18] MEDS ORDERED: SOD PHOSPHATE/SOD BIPHOSPHATE ENEMA 132 ML BTL PR PRN (15:39)
[2024-05-18] MEDS ORDERED: oxyCODONE HCL IR 5 MG TAB (IMMEDIATE RELEASE) PO PRN (15:39)
[2024-05-18] MEDS ORDERED: traMADol HCL 50 MG TABLET PO PRN (15:39)
[2024-05-18] MEDS ORDERED: ONDANSETRON 4 MG OD TAB PO PRN (15:39)
[2024-05-18] MEDS ORDERED: MAGNESIUM HYDROXIDE SUSP 30 ML UDC PO PRN (15:39)
[2024-05-18] MEDS ORDERED: diphenhydrAMINE Capsule 25 MG CAP PO PRN (15:39)
[2024-05-18] MEDS ORDERED: ALUMINUM/MAGNESIUM SUSP 30 ML UDC PO PRN (15:39)
[2024-05-18] MEDS ORDERED: DO NOT ADMINISTER FLU VACCINE PRN (15:39)
[2024-05-18] MEDS ORDERED: ACETAMINOPHEN 1,000 MG/100 ML VIAL IV PRN (15:39)
[2024-05-18] MEDS ORDERED: NALOXONE HCL 0.4 MG/1 ML VIAL/CARP IV PRN (15:39)
[2024-05-18] MEDS: SODIUM CHLORIDE 0.9% 1,000 ML IV SCH (15:59)
[2024-05-18] MEDS ORDERED: PHARMACY GLYCEMIC MGMT CONSULT PRN (17:01)
[2024-05-18] MEDS: INSULIN ASPART PER UNIT CHARGE SC SCH (18:03)
[2024-05-18] MEDS: LANTUS PER UNIT CHARGE SC ONE (18:03)
[2024-05-18] MEDS: ceFAZolin 2000MG 2,000 MG/15 ML SYR IV SCH (20:45)
[2024-05-18] MEDS: DOCUSATE SODIUM/SENNA 50/8.6MG TAB PO SCH (20:51)
[2024-05-18] MEDS: LANTUS PER UNIT CHARGE SC SCH (21:14)
[2024-05-18 22:05] LABS: Anisocytosis Present; Basophils # (auto) 0.02 K/uL (0.00-0.20); Basophils % (auto) 0.1 %; Hematocrit (blood only) 27.4 % (42.0-52.0); Hemoglobin 9.2 g/dl (14.0-18.0); Immature Granulocytes # (auto) 0.11 K/uL (0.01-0.20); Immature Granulocytes % (auto) 0.6 %; Lymphocytes # (auto) 1.01 K/uL (1.20-3.40); Lymphocytes % (auto) 5.8 %; Mean Corpuscular Hgb Conc 33.6 g/dL (32.0-36.0); Mean Corpuscular Volume 89.3 fL (80.0-100.0); Mean Platelet Volume 11.5 fL (9.4-12.4); Monocytes # (auto) 1.62 K/uL (0.11-0.59); Monocytes % (auto) 9.3 %; Neutrophils # (auto) 14.67 K/uL (1.40-6.50); Neutrophils % (auto) 84.2 %; Nucleated RBC # (auto) 0.19 K/uL (0.00-0.12); Nucleated RBC % (auto) 1.1 %; Platelet Count 195 K/uL (130-400); Platelet Estimate Normal (Normal); RDW Coefficient of Variation 20.3 % (11.5-14.5); RDW Standard Deviation 65.6 fL (36.4-46.3); Red Blood Count 3.07 M/uL (4.70-6.10); White Blood Count 17.43 K/ul (4.8-10.8)
[2024-05-18 22:25] LABS: Calcium 8.1 mg/dl (8.6-10.3); Potassium 4.3 mmol/L (3.5-5.1)
[2024-05-19] MEDS: INSULIN ASPART PER UNIT CHARGE SC SCH (00:16)
[2024-05-19 04:39] LABS: Basophils # (auto) 0.03 K/uL (0.00-0.20); Basophils % (auto) 0.2 %; Hematocrit (blood only) 24.6 % (42.0-52.0); Hemoglobin 8.2 g/dl (14.0-18.0); Immature Granulocytes # (auto) 0.11 K/uL (0.01-0.20); Immature Granulocytes % (auto) 0.6 %; Lymphocytes # (auto) 1.82 K/uL (1.20-3.40); Lymphocytes % (auto) 10.5 %; Mean Corpuscular Hemoglobin 29.3 pg (25.0-34.0); Mean Corpuscular Hgb Conc 33.3 g/dL (32.0-36.0); Mean Corpuscular Volume 87.9 fL (80.0-100.0); Mean Platelet Volume 11.4 fL (9.4-12.4); Monocytes # (auto) 1.69 K/uL (0.11-0.59); Monocytes % (auto) 9.7 %; Nucleated RBC # (auto) 0.12 K/uL (0.00-0.12); Nucleated RBC % (auto) 0.7 %; Platelet Count 211 K/uL (130-400); RDW Coefficient of Variation 20.8 % (11.5-14.5); RDW Standard Deviation 66.9 fL (36.4-46.3); White Blood Count 17.35 K/ul (4.8-10.8)
[2024-05-19 04:50] LABS: BUN Creatinine Ratio 22.9 (10-20); Calcium 7.9 mg/dl (8.6-10.3); Creatinine Clr Calc Pharmacy 40.4 ml/min; Potassium 4.4 mmol/L (3.5-5.1)
[2024-05-19 05:10] LABS: Anisocytosis Present; Polychromasia 1+; Target Cells 1+
[2024-05-19] MEDS: POLYETHYLENE (MIRALAX) 17 GM PACK PO SCH (06:19)
--- NOTE | 2024-05-19 08:27 | Hospitalist Progress Note ---
Date of Service May 19, 2024 Assessment & Plan (1) Left lumbar radiculopathy: Plan: 2nd to severe spinal stenosis at L5-S1, with mod-severe L4-L5 stenosis as well Likely the L5-S1 disease is the main culprit, however - Presented with ongoing severe LLE pain despite recent injection performed at [facility] in [place] in April 2024 - Home gabapentin 600mg TID + cymbalta 60mg BID to help with neuropathic pain - Pain medications trialed in hospital, all with minimal relief; Morphine IV, Tramadol PO prn, IV dilaudid prn - Gastric ulcers on 04/12/24 EGD, he has had 4+ weeks of time for these to heal with PPI bid; steroids OK to add cautiously to reduce inflammation at L5-S1 - Continue Dexamethasone 4mg BID IV - Continue Carafate QID to his PPI BID to help with GI prophylaxis Dr Brown from ortho-spine has seen Mr Wright in consultation - To OR on 05/18/24 for decompression-fusion at L4-S1 along with removal of old hardware from prior spine surgery - Sx procedure includes removal of posterior instrumentation L2-L4; exploration of fusion L2-L4; excision of extradural mass L5-S1; lumbar decompression with bilateral medial facetectomies and foraminotomies L4-L5 L5-S1; posterior spinal fusion L4-S1; interbody fusion L5-S1; placement is #6 placement of posterior instrumentation L2-S1; interbody fusion L5-S1; placement of Spira 14 x 26 mm x 2 at L5-S1; placement locally harvested morselized autograft posterior gutters; placement of infuse collagen sponge, with Koros in the posterior lateral gutters and os design in the interbody space; application of versa wrap over the exposed dura. - EBL 1,000 cc; received 2 units - Confirmed readiness for surgery from a cardiopulmonary standpoint with following info - * follows with [facility] - last visit was 01/2024 - was doing well from CAD/cardiac standpoint * ECHO: L ventricular systolic function normal; no regional wall motion abnormalities; moderate LVH, EJ 60-65%; prosthetic aortic valve well seated; gradient normal for prosthetic aortic valve; mild mitral regurg.; compared w ith study of 06/15/2023, no significant change * known valvular disease with prior h/o AVR - Echo updated 05/17 * known h/o systolic CHF 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 - now resolved; Echo updated 05/17 * pacemaker status - last interrogation early April - was wnl; will obtain repeat interrogation today * COPD - no exacerbation at this time with stable lung exam and O2 sats; no issues at this time (2) Acute blood loss anemia: Plan: 2/2 surgery for #1 - EBL 1,000 cc; received 2 units (05/18) - H/H immediately following Sx 7.4/23.0 - CBC + BMP 1 hour after transfusions completed: H/H 9.2/27.4 - CBC AM (05/19) H/H 8.2/24.6 - Trend CBC - Tx with additional units if Hgb < 8 (3) TAYLOR (acute kidney injury): Plan: 2/2 intra-op hypotension - Transfused 2 units PRBCs - Fluids if needed - 05/19- BUN 35, Cr 1.53, ratio 22.9 - BMP trending (4) Lumbar spinal stenosis: Plan: cause of #1 above - MRI l-spine 05/16 -- SEVERE stenosis particularly at L5-S1 - OR for intervention on 05/18/[address] Brown see #1 above for details (5) 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 - Patient on Metformin and Glimepiride at home as well as Lantus 20u daily - both PO agents on hold - cont lantus - cont novolog - adjust both accordingly due to addition of steroids - Monitoring corrected Na in relation to hyperglycemia - Pharm glycemic consult to manage high glucose 2/2 steroids and recent surgery - Glucose levels more controlled, will continue to follow and adjust accordingly (6) Myelodysplasia (myelodysplastic syndrome): Plan: has been anemic dating back to well before 2019 - Records indicate he has MDS - Prepared for fact pt was at risk for needing PRBCs this admission in setting of extensive back surgery needed - Fe studies during this stay show adequate stores - B12/folate levels in March 2024 were wnl - EBL during Sx 1,000 cc; H/H 7.4/23.0; 2 units of blood were administered s/p Sx - Follow CBC while here (7) BPH w urinary obs/LUTS: Plan: cont flomax and finasteride - fortunately his spinal stenosis does not appear to be causing retention issues at this time - Catheter in place, yellow urine in bag, mild sediment in tubing (8) Gastric ulcer: Plan: seen on EGD 04/12/[address] Marques - likely due to chronic plavix, etc - plavix on hold due to need for L-spine surgery; Restart 05/21 - on PPI twice daily - Carafate QID in light of addition of steroids for #1 (9) CAD, multiple vessel: Plan: most recent cath - 01/15/2021: Mid LAD stent patent. Patent proximal and mid OM1 stents. Small superior branch of OM1 with probable moderate ostial CAD, approximately 50-70%. Anterior takeoff of dominant RCA. Proximal RCA 30%. Proximal RCA stent mild in stent restenoses. Mid RCA 30-40%. Mid RCA stent mild InStent restenosis with distal margin approximately 40%. Distal RCA 40%. Distal RCA stent patent. - was to be on DAPT per 01/2024 cardiology note - looks like only taking plavix - has been placed on hold for surgery for #1 - Continue ASA 81 mg qd, stop 05/21 - Cont statin, cont coreg BID - No recent ischemic symptoms - Restart Plavix 05/21; discussed with Dr. Brown (10) S/P coronary artery stent placement: Plan: multiple PCIs in the past per records (11) Aneurysm of ascending aorta: Plan: 03/2024 CT -- 4.6cm in diameter at that time - no repeat imaging needed at the moment (12) S/P aortic valve replacement with bioprosthetic valve: Plan: Bioprosthetic aortic valve replacement 12/14/2011 - Echo updated 05/17: L ventricular systolic function normal; no regional wall motion abnormalities; moderate LVH, EJ 60-65%; prosthetic aortic valve well seated; gradient normal for prosthetic aortic valve; mild mitral regurg.; compared with study of 06/15/2023, no significant change - only soft systolic murmur on exams (13) COPD (chronic obstructive pulmonary disease): Plan: no exacerbation at this time - cont bronchodilators prn (14) Pacemaker: Plan: upgraded to BiV pacer [address] Kevan Choi - most recent interrogation with normal function - interrogation completed in prep for surgery to exclude any recent dysrhythmia, etc Plan Hyperlipidemia - -Continue Atorvastatin 40mg po qHS Anxiety - chronic/stable -Continue Buspirone 30mg po TID - of note, this amount exceeds recommended dosing for Buspirone. Dose confirmed Dementia - chronic/stable, no agitation or superimposed delirium at this time -Continue Aricept and Namenda PTSD - patient follows at [facility] with Dr. Taylor -Continue Lamictal -Continue Duloxetine Hyperkalemia- - Seems to be a chronic occurrence - K at admission 5.3 -> 6.2 -> 5.8 - Utilized potassium binders, bicarb infusion and trending K - pt does chew tobacco; spoke with Dr. Cotter regarding the impact this may have on K. Will continue to encourage discontinuation of chewing tobacco. - K at baseline today (4.4) Dispo: Pending improvement of H/H and stability from Sx procedure; d/c home early next week DVT Proph: Restart Plavix once OK Code: Full Admission and Anticipated Discharge Date Admission Date: May 14, 2024 Supervising Physician Co-Signing Physician Notes Attending Attestation & Progress Note: Pt seen/examined, chart reviewed, care plan d/w LI Franco. I agree with the dye components of her documentation. Pt feels very good today - states "I can walk!". No back pain. No radicular symptoms of legs. Tele stable (pacing). Exam - gen - NAD, resting in the chair, looks well neck - no JVD heart - irregular, s1 s2, rate <100, 1/6 ONI LSB lungs - CTA b/l abd - soft NT ND BS+ ext - no edema, pulses 1+ b/l feet A/P: 1. severe L-spine DJD/DDD with refractory LLE radicular pain and weakness - POD #1 s/p extensive l-spine surgery (decompression/fusion, removal of facet joint cyst, etc by Dr Brown - appreciate his assistance. 2. acute blood loss anemia 2nd to surgery for #1 - s/p 2 units of PRBCs; post- Tx H/H stable, Tx additional units if Hb <8. 3. mild TAYLOR - 2nd to intra-op hypotension - improving. BMP am. 4. CAD - no felicity-operative ischemic symptoms. Cont asa 81mg daily. Cont all o ther cardiac meds. Resume plavix next week; when plavix is restarted can d/c asa. 5. COPD - no flare at this time. Stable. O2 sats wnl. 6. AVR - normal function on echo this admission. 7. hyperkalemia - has had this problem on/off for several years. Did have a very mild TAYLOR but creatinine only peaked at 1.86. Does not seem that an increase to 1.8 would cause the K level to rise to >6. He chews tobacco all day - chewing tobacco contains large amounts of potassium -- is this issue being driven by a kidney issue (RTA?) and/or chewing tobacco?? Will ask patient to stop chewing tobacco. K level now normal. Lokelma stopped. 8. uncontrolled T2DM - 2nd to steroids, etc. Improved. Pharmacy glycemic team adjusting insulins - appreciate their assistance. [facility] [place] [facility] updated pt's by phone this evening Waldo Cotter MD Subjective Pt seen sitting in chair at bedside today. States that he feels great and has no pain. Reports that he was up walking the halls this AM. Denies F/C, chest pain, SOB, calf pain, N/V/D/C, abdominal pain. Telemetry: Paced rhythm, 60 bpm Review of Systems Constitutional: no fever and no chills Respiratory: no dyspnea Cardiovascular: no chest pain and no palpitations Gastrointestinal: no abdominal pain, no nausea, no vomiting, no constipation and no diarrhea/loose stools Genitourinary: no difficulty urinating Musculoskeletal: no problem reported Neurologic: no tingling and no numbness Physical Exam Respiratory: normal respiratory effort, lungs clear to auscultation Cardiovascular: Rate/Rhythm: regular rate and regular rhythm Heart Sounds: + murmur (Soft systolic murmur at LUSB) Extremities: no calf tenderness and no edema Gastrointestinal (Abdomen): normal bowel sounds, soft, nontender, no hepatosplenomegaly Musculoskeletal: SCDs bilateral lower legs Low back NASEEM drain intact Genitourinary: Catheter in place, yellow urine, mild sediment in tubing Results & Data Results & Data Vital Signs (Past 12 Hours) Vital Signs Temp Pulse Pulse Resp BP Pulse Ox O2 Del Method 05/19/24 08:07 36.7 C 71 18 131/69 98 Room Air 05/19/24 06:34 77 05/19/24 03:19 36.5 C 67 18 123/65 94 Room Air 05/19/24 01:31 73 05/18/24 22:11 71 18 132/70 95 Room Air Laboratory Results Abnormal lab results 05/18/24 05/18/24 05/18/24 Range/Units 06:20 12:49 12:54 WBC (4.8-10.8) K/ul RBC (4.70-6.10) M/uL Hgb 7.4 L (14.0-18.0) g/dl Hct 23.0 L (42.0-52.0) % RDW Std Deviation (36.4-46.3) fL RDW Coeff of Ilnda (11.5-14.5) % Neut # (Auto) (1.40-6.50) K/uL Lymph # (Auto) (1.20-3.40) K/uL Stokes # (Auto) (0.11-0.59) K/uL Absolute Nucleated RBC (0.00-0.12) K/uL BUN (6-23) mg/dl Creatinine (0.6-1.4) mg/dl BUN/Creatinine Ratio (10-20) Glucose (70-99(Fasting)) mg/dl POC Glucose 362 H* (70-99) mg/dl Calcium (8.6-10.3) mg/dl Crossmatch See Detail 05/18/24 05/18/24 05/18/24 Range/Units 14:06 14:09 16:36 WBC (4.8-10.8) K/ul RBC (4.70-6.10) M/uL Hgb (14.0-18.0) g/dl Hct (42.0-52.0) % RDW Std Deviation (36.4-46.3) fL RDW Coeff of Linda (11.5-14.5) % Neut # (Auto) (1.40-6.50) K/uL Lymph # (Auto) (1.20-3.40) K/uL Stokes # (Auto) (0.11-0.59) K/uL Absolute Nucleated RBC (0.00-0.12) K/uL BUN (6-23) mg/dl Creatinine (0.6-1.4) mg/dl BUN/Creatinine Ratio (10-20) Glucose (70-99(Fasting)) mg/dl POC Glucose 397 H* 400 H* 306 H* (70-99) mg/dl Calcium (8.6-10.3) mg/dl Crossmatch 05/18/24 05/18/24 05/19/24 Range/Units 20:10 21:30 04:16 WBC 17.43 H 17.35 H (4.8-10.8) K/ul RBC 3.07 L 2.80 L (4.70-6.10) M/uL Hgb 9.2 L 8.2 L (14.0-18.0) g/dl Hct 27.4 L 24.6 L (42.0-52.0) % RDW Std Deviation 65.6 H 66.9 H (36.4-46.3) fL RDW Coeff of Linda 20.3 H 20.8 H (11.5-14.5) % Neut # (Auto) 14.67 H 13.70 H (1.40-6.50) K/uL Lymph # (Auto) 1.01 L (1.20-3.40) K/uL Stokes # (Auto) 1.62 H 1.69 H (0.11-0.59) K/uL Absolute Nucleated RBC 0.19 H (0.00-0.12) K/uL BUN 35 H 35 H (6-23) mg/dl Creatinine 1.67 H D 1.53 H (0.6-1.4) mg/dl BUN/Creatinine Ratio 21.0 H 22.9 H (10-20) Glucose 149 H (70-99(Fasting)) mg/dl POC Glucose 193 H (70-99) mg/dl Calcium 8.1 L 7.9 L (8.6-10.3) mg/dl Crossmatch 05/19/24 05/19/24 Range/Units 07:07 11:17 WBC (4.8-10.8) K/ul RBC (4.70-6.10) M/uL Hgb (14.0-18.0) g/dl Hct (42.0-52.0) % RDW Std Deviation (36.4-46.3) fL RDW Coeff of Linda (11.5-14.5) % Neut # (Auto) (1.40-6.50) K/uL Lymph # (Auto) (1.20-3.40) K/uL Stokes # (Auto) (0.11-0.59) K/uL Absolute Nucleated RBC (0.00-0.12) K/uL BUN (6-23) mg/dl Creatinine (0.6-1.4) mg/dl BUN/Creatinine Ratio (10-20) Glucose (70-99(Fasting)) mg/dl POC Glucose 63 L* 244 H (70-99) mg/dl Calcium (8.6-10.3) mg/dl Crossmatch PG Care Time/CCT Total # of Minutes Spent Total Time Spent with Patient: Total time spent is greater than 50% in coordination of care (as documented) at patient's floor/unit and/or counseling patient: Coding Level of Care Code None Diagnoses Left lumbar radiculopathy M54.16 Acute blood loss anemia D62 TAYLOR (acute kidney injury) N17.9 Lumbar spinal stenosis M48.061 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
[2024-05-19] MEDS: dexAMETHasone 6 MG in SYRINGE 0 ML IV SCH (09:22)
--- NOTE | 2024-05-19 10:26 | Orthopedic Progress Note ---
Date of Service May 19, 2024 Assessment & Plan (1) Left lumbar radiculopathy: Plan: At this time we will continue physical therapy monitor his NASEEM output hopefully discharge home in the next few days. Admission and Anticipated Discharge Date Admission Date: May 14, 2024 Subjective Back pain is controlled left leg symptoms markedly improved. He is tolerated physical therapy ordered this morning. Physical Exam Physical Exam: Patient is in the chair at bedside. Is comfortable. Distracted testing. Results & Data Vital Signs (Past 12 Hours) Vital Signs Temp Pulse Pulse Resp BP Pulse Ox O2 Del Method 05/19/24 08:07 36.7 C 71 18 131/69 98 Room Air 05/19/24 06:34 77 05/19/24 03:19 36.5 C 67 18 123/65 94 Room Air 05/19/24 01:31 73 Queries Orthopedic Spine Acute Posthemorrhagic Anemia: Yes
--- NOTE | 2024-05-19 12:14 | Pharmacy Report ---
Pharmacy Glycemic Short Note 2 - Date of Service May 19, 2024 - Glycemic Short BSG Results (Last 24 hours): 05/18/24 05/18/24 05/18/24 12:49 14:06 14:09 Glucose POC Glucose 362 H* 397 H* 400 H* 05/18/24 05/18/24 05/18/24 16:36 20:10 21:30 Glucose 149 H POC Glucose 306 H* 193 H 05/19/24 05/19/24 05/19/24 00:05 00:21 04:16 Glucose 89 84 POC Glucose 99 05/19/24 05/19/24 05/19/24 07:07 07:50 11:17 Glucose POC Glucose 63 L* 90 244 H OUTPATIENT ANTIDIABETIC REGIMEN: * Lantus 18units SQ qAM and 24units SQ HS * glimepiride 2mg PO with breakfast 1mg lunch, 1mg dinner HbA1C: 8.4% (04/13/24) ASSESSMENT: * Pt is a 78 year old male admitted s/p spinal decompression-fusion surgery (POD #1). History of DM2 on insulin at home. Pharmacy consulted to assist with inpatient glycemic management. * BSGs elevated yesterday ([phone]/dL) and trended down this AM (84-63mg/dL). Received 45 units of SQ basal insulin yesterday, 20 units SQ regular insulin in the OR/PACU, and 26 units of SQ bolus insulin. * Received 4mg IV dex yesterday and continues on 6mg IV daily. Tolerating diet. Other stressors stable. * Will continue basal bolus insulin with reduced basal today. Lantus 15 units SQ X 1 at lunch and will add an HS scale 15-20 units depending on BSG. Novolog tightened to 20/5 yesterday and will loosen slightly given rapid correction last evening. PLAN FOR INPATIENT GLYCEMIC CONTROL: * Hold outpatient oral diabetes medications * Basal insulin * Lantus 15 units SQ X 1, 15-20 units SQ HS depending on BSG * Bolus insulin * NovoLog per scale ACHS or Q6hrs while NPO * Goal Range: Low 110 mg/dL - High 140 mg/dL * Correction Factor: 25 mg/dL/unit * Nutritional / Prandial insulin per carb ratio of 1 unit per 7 grams CHO consumed
[2024-05-19] MEDS: LANTUS PER UNIT CHARGE SC ONE (12:29)
[2024-05-19] MEDS: LANTUS PER UNIT CHARGE SC SCH (21:00)
[2024-05-20 07:03] LABS: Hematocrit (blood only) 22.2 % (42.0-52.0); Hemoglobin 7.7 g/dl (14.0-18.0); Mean Corpuscular Hemoglobin 30.4 pg (25.0-34.0); Mean Corpuscular Hgb Conc 34.7 g/dL (32.0-36.0); Mean Corpuscular Volume 87.7 fL (80.0-100.0); Mean Platelet Volume 11.6 fL (9.4-12.4); Nucleated RBC # (auto) 0.07 K/uL (0.00-0.12); Nucleated RBC % (auto) 0.4 %; Platelet Count 190 K/uL (130-400); RDW Coefficient of Variation 20.4 % (11.5-14.5); RDW Standard Deviation 65.1 fL (36.4-46.3); Red Blood Count 2.53 M/uL (4.70-6.10); White Blood Count 16.48 K/ul (4.8-10.8)
[2024-05-20 07:38] LABS: BUN Creatinine Ratio 25.6 (10-20); Calcium 7.8 mg/dl (8.6-10.3); Potassium 4.1 mmol/L (3.5-5.1)
[2024-05-20] MEDS ORDERED: SODIUM CHLORIDE 0.9% 250 ML IV PRN (07:52)
--- NOTE | 2024-05-20 08:02 | Billing Data ---
Date of Service May 19, 2024 Coding Level of Care Code 24579 SUB INP/OBS CARE MIN
[2024-05-20] MEDS: LANTUS PER UNIT CHARGE SC SCH (08:22)
--- NOTE | 2024-05-20 08:48 | Orthopedic Progress Note ---
Date of Service May 20, 2024 Assessment & Plan (1) Left lumbar radiculopathy: Plan: At this time we will continue physical therapy monitor his NASEEM output anticipate discharge to rehab next week. Admission and Anticipated Discharge Date Admission Date: May 14, 2024 Subjective Back pain is controlled leg symptoms markedly improved he is tolerating physical therapy Physical Exam Physical Exam: Patient currently bed peers comfortable. Discussed when to testing. Results & Data Vital Signs (Past 12 Hours) Vital Signs Temp Pulse Pulse Resp BP BP Pulse Ox 05/20/24 07:00 37.0 C 77 20 105/67 96 05/20/24 05:32 67 05/20/24 03:00 36.5 C 71 17 104/53 L 94 05/19/24 23:56 36.8 C 63 17 98/49 L 96 05/19/24 22:00 73 05/19/24 21:00 O2 Del Method 05/20/24 07:00 Room Air 05/20/24 05:32 05/20/24 03:00 Room Air 05/19/24 23:56 Room Air 05/19/24 22:00 05/19/24 21:00 Room Air Queries Orthopedic Spine Acute Posthemorrhagic Anemia: Yes
[2024-05-20 14:30] LABS: Hematocrit (blood only) 28.3 % (42.0-52.0); Hemoglobin 9.2 g/dl (14.0-18.0)
[2024-05-20] MEDS: FAMOTIDINE 20MG IV PUSH 20 MG/5 ML SYR IV SCH (17:19)
--- NOTE | 2024-05-20 20:08 | Hospitalist Progress Note ---
Date of Service May 20, 2024 Assessment & Plan (1) Left lumbar radiculopathy: Plan: 2nd to severe spinal stenosis at L5-S1, with mod-severe L4-L5 stenosis as well. Extensive l-spine surgery by Dr Brown. POD #2 s/p - removal of posterior instrumentation L2-L4; exploration of fusion L2-L4; excision of extradural mass L5-S1; lumbar decompression with bilateral medial facetectomies and foraminotomies L4-L5 L5-S1; posterior spinal fusion L4- S1; interbody fusion L5-S1; placement is #6 placement of posterior instrumentation L2-S1; interbody fusion L5-S1; placement of Spira 14 x 26 mm x 2 at L5-S1; placement locally harvested morselized autograft posterior gutters; placement of infuse collagen sponge, with Koros in the posterior lateral gutters and os design in the interbody space; application of versa wrap over the exposed dura. Deepika-operative course complicated by severe acute blood loss anemia with 1000cc+ blood loss. s/p 2 units PRBCs on day of surgery. Hb today <8 - giving another unit of PRBCs. All of his back pain and radicular pain have resolved. NASEEM drain remains in place - defer management to Dr Brown. PT, OT. To rehab post-discharge. (2) Acute blood loss anemia: Plan: 2nd to extensive back surgery as noted in #1 above. s/p 2 units PRBCs on 05/18/24. s/p another unit of PRBCs today. I cannot exclude upper GI bleeding contributing to acute blood loss anemia given his melena stools noted today. Post-Tx H/H acceptable. Repeat CBC am. 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 Patient on Metformin and Glimepiride at home as well as Lantus 20u daily - both PO agents on hold Pharmacy glycemic team providing oversight of lantus/novolog (6) Myelodysplasia (myelodysplastic syndrome): Plan: has been anemic dating back to well before 2019 Records indicate he has MDS Fe studies show adequate stores B12/folate levels in March 2024 were wnl today's PRBCs gives him a total of 3 units of blood this admissoin repeat CBC am (7) BPH w urinary obs/LUTS: Plan: cont flomax and finasteride kendall has been d/c and he is voiding without LUTS (8) Gastric ulcer: Plan: multiple, shallow seen on EGD 04/12/[address] Marques cont PPI twice daily cont Carafate QID black, tarry stool - c/w melena - noted today no GI symptoms or pain, however will simply add IV pepcid BID to the PPI/carafate if any worsening of the melena or persistent drops in H/H then restrict diet and re-consult GI HOLD asa HOLD plavix STOP dexamethasone (9) CAD, multiple vessel: Plan: most recent cath - 01/15/2021: Mid LAD stent patent. Patent proximal and mid OM1 stents. Small superior branch of OM1 with probable moderate ostial CAD, approximately 50-70%. Anterior takeoff of dominant RCA. Proximal RCA 30%. Proximal RCA stent mild in stent restenoses. Mid RCA 30-40%. Mid RCA stent mild InStent restenosis with distal margin approximately 40%. Distal RCA 40%. Distal RCA stent patent. Placing both asa/plavix on hold due to GI bleeding Cont statin, cont coreg BID No recent ischemic symptoms (10) S/P coronary artery stent placement: Plan: multiple PCIs in the past per records (11) Aneurysm of ascending aorta: Plan: 03/2024 CT -- 4.6cm in diameter at that time (12) S/P aortic valve replacement with bioprosthetic valve: Plan: Bioprosthetic aortic valve replacement 12/14/2011 Echo updated 05/17: L ventricular systolic function normal; no regional wall motion abnormalities; moderate LVH, EJ 60-65%; prosthetic aortic valve well seated; gradient normal for prosthetic aortic valve; mild mitral regurg; compared with study of 06/15/2023, no significant change (13) COPD (chronic obstructive pulmonary disease): Plan: no exacerbation at this time cont bronchodilators prn (14) Pacemaker: Plan: upgraded to BiV pacer [address] Kevan Choi most recent interrogation, 04/2024, with normal function interrogation completed this week in prep for surgery to exclude any recent dysrhythmia, etc I still cannot find that report - will inquire Plan Hyperlipidemia - -Continue Atorvastatin 40mg po qHS Anxiety - chronic/stable -Continue Buspirone 30mg po TID Dementia - chronic/stable -Continue Aricept and Namenda PTSD [facility] -Continue Lamictal -Continue Duloxetine Hyperkalemia- resolved - peak K level 6.2 earlier this week - s/p potassium binders, bicarb infusion, calcium, etc. - pt does chew tobacco - patient counseled the chewing tobacco contains potassium and that he should stop - K levels have been normal for 48+ hours - if K levels become high again will send to nephrology for assistance with this Dispo: [facility] for rehab Admission and Anticipated Discharge Date Admission Date: May 14, 2024 Subjective tele overnight - pacing, with variable HRs patient feeling very well with good appetite, no dyspnea, no dyspnea on exertion, no chest pain, no abd pain, no N/V staff report he had a very dark black, tarry-looking stool this afternoon he reports his stools at home had been brown he continues to have no pain in his back or his legs he is still agreeable to going to rehab post-d/c Review of Systems Review of Systems: CV - no edema, no orthopnea pulm - no increased cough or dyspnea GI - no bright red blood per rectum Physical Exam Physical Exam: gen - looks great, NAD neck - no JVD mouth - MMM heart - RRR, s1 s2, 2/6 ONI RUSB lungs - scattered wheezes b/l but no rales, good airation abd - soft NT ND BS+ ext - no edema, pulses 2+ b/l Results & Data Results & Data Vital Signs (Past 12 Hours) Vital Signs Temp Pulse Pulse Resp BP BP BP 05/20/24 20:05 37.0 C 73 17 142/68 H 05/20/24 16:36 75 05/20/24 15:03 37.2 C 72 20 136/56 L 05/20/24 13:29 05/20/24 12:45 36.8 C 74 16 117/50 L 05/20/24 11:20 36.8 C 73 16 138/83 05/20/24 10:53 37.0 C 69 20 126/68 05/20/24 10:20 36.8 C 69 16 126/68 05/20/24 09:50 36.9 C 70 16 127/60 05/20/24 09:35 36.5 C 67 16 127/66 05/20/24 09:20 36.6 C 69 16 109/58 L Pulse Ox O2 Del Method 05/20/24 20:05 96 Room Air 05/20/24 16:36 05/20/24 15:03 96 Room Air 05/20/24 13:29 Room Air 05/20/24 12:45 95 05/20/24 11:20 95 05/20/24 10:53 97 Room Air 05/20/24 10:20 94 05/20/24 09:50 92 05/20/24 09:35 93 05/20/24 09:20 95 Laboratory Results Laboratory Results - last 24 hr 05/18/24 05/19/24 05/20/24 06:20 20:43 06:09 WBC 16.48 H RBC 2.53 L Hgb 7.7 L Hct 22.2 L MCV 87.7 MCH 30.4 MCHC 34.7 RDW Std Deviation 65.1 H RDW Coeff of Linda 20.4 H Plt Count 190 MPV 11.6 Absolute Nucleated RBC 0.07 Nucleated RBC % (auto) 0.4 Sodium 139 Potassium 4.1 Chloride 104 Carbon Dioxide 30 Anion Gap 5 BUN 33 H Creatinine 1.29 Est Cr Clr Drug Dosing 48.0 eGFR 57.11 BUN/Creatinine Ratio 25.6 H Glucose 98 POC Glucose 98 Calcium 7.8 L Blood Type B Positive Antibody Screen NEGATIVE Crossmatch See Detail 05/20/24 05/20/24 05/20/24 07:39 10:53 14:16 WBC RBC Hgb 9.2 L Hct 28.3 L MCV MCH MCHC RDW Std Deviation RDW Coeff of Linda Plt Count MPV Absolute Nucleated RBC Nucleated RBC % (auto) Sodium Potassium Chloride Carbon Dioxide Anion Gap BUN Creatinine Est Cr Clr Drug Dosing eGFR BUN/Creatinine Ratio Glucose POC Glucose 118 H 148 H Calcium Blood Type Antibody Screen Crossmatch 05/20/24 16:16 WBC RBC Hgb Hct MCV MCH MCHC RDW Std Deviation RDW Coeff of Linda Plt Count MPV Absolute Nucleated RBC Nucleated RBC % (auto) Sodium Potassium Chloride Carbon Dioxide Anion Gap BUN Creatinine Est Cr Clr Drug Dosing eGFR BUN/Creatinine Ratio Glucose POC Glucose 239 H Calcium Blood Type Antibody Screen Crossmatch PG Care Time/CCT Total # of Minutes Spent Total Time Spent with Patient: Total time spent is greater than 50% in coordination of care (as documented) at patient's floor/unit and/or counseling patient: Coding Level of Care Code 63410 SUB INP/OBS CARE 3/50MIN Diagnoses Left lumbar radiculopathy M54.16 Acute blood loss anemia D62 TAYLOR (acute kidney injury) N17.9 Lumbar spinal stenosis M48.061 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
[2024-05-21] MEDS: INSULIN ASPART PER UNIT CHARGE SC ONE (02:04)
[2024-05-21 06:44] LABS: Hematocrit (blood only) 25.8 % (42.0-52.0); Hemoglobin 8.6 g/dl (14.0-18.0); Mean Corpuscular Hemoglobin 29.7 pg (25.0-34.0); Mean Corpuscular Hgb Conc 33.3 g/dL (32.0-36.0); Mean Platelet Volume 11.3 fL (9.4-12.4); Nucleated RBC # (auto) 0.07 K/uL (0.00-0.12); Nucleated RBC % (auto) 0.4 %; Platelet Count 206 K/uL (130-400); RDW Coefficient of Variation 19.9 % (11.5-14.5); RDW Standard Deviation 63.8 fL (36.4-46.3); White Blood Count 17.46 K/ul (4.8-10.8)
[2024-05-21 07:10] LABS: BUN Creatinine Ratio 22.7 (10-20); Calcium 8.1 mg/dl (8.6-10.3); Potassium 4.1 mmol/L (3.5-5.1)
[2024-05-21] MEDS: LANTUS PER UNIT CHARGE SC SCH ×2 (08:41→21:55)
[2024-05-21] MEDS ORDERED: CLOPIDOGREL BISULFATE 75 MG TAB PO SCH (09:00)
--- NOTE | 2024-05-21 10:31 | Orthopedic Progress Note ---
Date of Service May 21, 2024 Assessment & Plan (1) Left lumbar radiculopathy: Plan: Today we will change his dressing discontinue his drain. Hopefully he will be accepted at rehab tomorrow. He is stable from an orthopedic standpoint. Admission and Anticipated Discharge Date Admission Date: May 14, 2024 Subjective Back pain controlled leg pain improved Physical Exam Physical Exam: Patient sitting up at the bedside. Is comfortable. Is constricted testing. Results & Data Vital Signs (Past 12 Hours) Vital Signs Temp Pulse Pulse Resp BP Pulse Ox O2 Del Method 05/21/24 07:57 36.5 C 88 18 148/77 H 98 Room Air 05/21/24 07:25 67 05/21/24 04:00 36.6 C 67 17 137/67 97 Room Air 05/21/24 00:53 Room Air 05/20/24 23:37 36.9 C 69 18 150/68 H 96 Room Air Queries Orthopedic Spine Acute Posthemorrhagic Anemia: Yes
--- NOTE | 2024-05-21 13:17 | Pharmacy Report ---
Pharmacy Glycemic Short Note 2 - Date of Service May 21, 2024 - Glycemic Short BSG Results (Last 24 hours): 05/20/24 05/20/24 05/21/24 16:16 21:05 01:54 Glucose POC Glucose 239 H 196 H 228 H 05/21/24 05/21/24 05/21/24 05:38 07:32 11:11 Glucose 95 POC Glucose 116 H 177 H OUTPATIENT ANTIDIABETIC REGIMEN: * Lantus 18units SQ qAM and 24units SQ HS * glimepiride 2mg PO with breakfast 1mg lunch, 1mg dinner HbA1C: 8.4% (04/13/24) ASSESSMENT: 05/21/24: * Blood sugars have been labile over past 48 hours, ranging 98-239 mg/dL * Received 60 units of insulin yesterday (25 units of basal and 35 units of prandial/correctional bolus) * Steroids have now been discontinued (was receiving dexamethasone 6 mg IV daily) * Plan is for d/c to rehab tomorrow (05/22) * Despite intermittent hyperglycemia, will decrease basal/loosen bolus parameters today 05/19/24: * Pt is a 78 year old male admitted s/p spinal decompression-fusion surgery (POD #1). History of DM2 on insulin at home. Pharmacy consulted to assist with inpatient glycemic management. * BSGs elevated yesterday ([phone]/dL) and trended down this AM (84-63mg/dL). Received 45 units of SQ basal insulin yesterday, 20 units SQ regular insulin in the OR/PACU, and 26 units of SQ bolus insulin. * Received 4mg IV dex yesterday and continues on 6mg IV daily. Tolerating diet. Other stressors stable. * Will continue basal bolus insulin with reduced basal today. Lantus 15 units SQ X 1 at lunch and will add an HS scale 15-20 units depending on BSG. Novolog tightened to 20/5 yesterday and will loosen slightly given rapid correction last evening. PLAN FOR INPATIENT GLYCEMIC CONTROL: * Hold outpatient oral diabetes medications * Basal insulin * Lantus 10 units SC daily * Lantus 0-5-10 units SC HS * Bolus insulin * NovoLog per scale ACHS or Q6hrs while NPO * Goal Range: Low 110 mg/dL - High 140 mg/dL * Correction Factor: 25 mg/dL/unit * Nutritional / Prandial insulin per carb ratio of 1 unit per 8 grams CHO consumed
[2024-05-21] MEDS: ACETAMINOPHEN 500 MG TAB PO PRN (17:16)
--- NOTE | 2024-05-21 18:19 | Hospitalist Progress Note ---
Date of Service May 21, 2024 Assessment & Plan (1) Left lumbar radiculopathy: Plan: 2nd to severe spinal stenosis at L5-S1, with mod-severe L4-L5 stenosis as well. Extensive l-spine surgery by Dr Brown. POD #3 s/p - removal of posterior instrumentation L2-L4; exploration of fusion L2-L4; excision of extradural mass L5-S1; lumbar decompression with bilateral medial facetectomies and foraminotomies L4-L5 L5-S1; posterior spinal fusion L4- S1; interbody fusion L5-S1; placement is #6 placement of posterior instrumentation L2-S1; interbody fusion L5-S1; placement of Spira 14 x 26 mm x 2 at L5-S1; placement locally harvested morselized autograft posterior gutters; placement of infuse collagen sponge, with Koros in the posterior lateral gutters and os design in the interbody space; application of versa wrap over the exposed dura. Deepika-operative course complicated by severe acute blood loss anemia with 1000cc+ blood loss. s/p 3 units PRBCs given in total since surgery. All of his back pain and radicular pain have resolved. NASEEM drain remains in place - defer management to Dr Brown. Cont PT, OT. To rehab post-discharge - patient wants [facility]. (2) Acute blood loss anemia: Plan: 2nd to extensive back surgery as noted in #1 above. s/p 3 units PRBCs since surgery. I cannot exclude upper GI bleeding contributing to acute blood loss anemia given his dark stools noted by staff on 05/20 but it is possible the dark stool was from his Fe supplement. H/H acceptable today. Repeat CBC am. 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 Patient on Metformin and Glimepiride at home as well as Lantus 20u daily - both PO agents on hold Pharmacy glycemic team providing oversight of lantus/novolog control overall acceptable (6) Myelodysplasia (myelodysplastic syndrome): Plan: has been anemic dating back to well before 2019 Records indicate he has MDS Fe studies show adequate stores B12/folate levels in March 2024 were wnl total of 3 units of blood this admission repeat CBC am (7) BPH w urinary obs/LUTS: Plan: cont flomax and finasteride (8) Gastric ulcer: Plan: multiple, shallow seen on EGD 04/12/[address] Marques cont PPI twice daily cont Carafate QID black, tarry stool - ? melena - noted 05/20/24 by staff no GI symptoms or pain, however dark stool could be 2nd to Fe supplements if any worsening of the melena or persistent drops in H/H then restrict diet and re-consult GI HOLD asa HOLD plavix STOPPED dexamethasone added IV pepcid 20mg BID (9) CAD, multiple vessel: Plan: most recent cath - 01/15/2021: Mid LAD stent patent. Patent proximal and mid OM1 stents. Small superior branch of OM1 with probable moderate ostial CAD, approximately 50-70%. Anterior takeoff of dominant RCA. Proximal RCA 30%. Proximal RCA stent mild in stent restenoses. Mid RCA 30-40%. Mid RCA stent mild InStent restenosis with distal margin approximately 40%. Distal RCA 40%. Distal RCA stent patent. Placing both asa/plavix on hold due to ?GI bleeding Cont statin, cont coreg BID No recent ischemic symptoms (10) S/P coronary artery stent placement: Plan: multiple PCIs in the past per records (11) Aneurysm of ascending aorta: Plan: 03/2024 CT -- 4.6cm in diameter at that time (12) S/P aortic valve replacement with bioprosthetic valve: Plan: Bioprosthetic aortic valve replacement 12/14/2011 Echo updated 05/17/24: L ventricular systolic function normal; no regional wall motion abnormalities; moderate LVH, EJ 60-65%; prosthetic aortic valve well seated; gradient normal for prosthetic aortic valve; mild mitral regurg compared with study of 06/15/2023, no significant change (13) COPD (chronic obstructive pulmonary disease): Plan: no exacerbation at this time cont bronchodilators prn (14) Pacemaker: Plan: upgraded to BiV pacer [address] Kevan Choi most recent interrogation, 04/2024, with normal function (15) Hyperkalemia: Plan: peak K level 6.2 earlier this week (prior to his surgery) - s/p potassium binders, bicarb infusion, calcium, etc. - pt does chew tobacco - patient counseled the chewing tobacco contains potassium and that he should stop ; very well could be contributing to his somewhat chronic issue of high K - K levels have been normal for 72+ hours - Cont low K diet - if K levels become high again will send to nephrology for assistance with this Plan Hyperlipidemia - -Continue Atorvastatin 40mg po qHS Anxiety - chronic/stable -Continue Buspirone 30mg po TID Dementia - chronic/stable -Continue Aricept and Namenda PTSD - patient follows at the [facility] with Dr. Taylor -Continue Lamictal -Continue Duloxetine Dispo: [facility] for rehab ? home with HH ? Admission and Anticipated Discharge Date Admission Date: May 14, 2024 Subjective patient upset about several different things first, he had to have a bowel movement earlier and pushed the call [place] but no one came to his assistance second, the bed alarm is on and he hates that he just can't get up on his own by the time the visit was complete he was calmed down and in better spirits continues to have no back pain or leg pain b/l he feels well robust appetite no dyspnea or CARTER no chest pain hasn't had any more bowel movements since yesterday Review of Systems Review of Systems: neuro - denies radicular pain of legs; has baseline numbness in feet, however - no worse than baseline cv - no orthopnea, no edema pulm - cough, but no dyspnea GI - no N/V Physical Exam Physical Exam: gen - looks well but upset/agitated today, chewing tobacco neck - no JVD mouth - MMM heart - RRR, s1 s2, 2/6 ONI RUSB lungs - minimal scattered wheezes b/l but no rales, good airation abd - soft NT ND BS+ ext - no edema, pulses 2+ b/l back - NASEEM drain remains in place, filled with serosanguinous fluid neuro - strength 5/5 x both legs all muscle groups Results & Data Results & Data Vital Signs (Past 12 Hours) Vital Signs Temp Pulse Pulse Resp BP Pulse Ox O2 Del Method 05/21/24 15:00 36.7 C 90 18 144/79 H 98 Room Air 05/21/24 11:00 36.6 C 89 20 139/87 97 Room Air 05/21/24 07:57 36.5 C 88 18 148/77 H 98 Room Air Laboratory Results Laboratory Results - last 24 hr 05/20/24 05/21/24 05/21/24 21:05 01:54 05:38 WBC 17.46 H RBC 2.90 L Hgb 8.6 L Hct 25.8 L MCV 89.0 MCH 29.7 MCHC 33.3 RDW Std Deviation 63.8 H RDW Coeff of Linda 19.9 H Plt Count 206 MPV 11.3 Absolute Nucleated RBC 0.07 Nucleated RBC % (auto) 0.4 Sodium 141 Potassium 4.1 Chloride 105 Carbon Dioxide 32 Anion Gap 4 BUN 27 H Creatinine 1.19 Est Cr Clr Drug Dosing 52.0 eGFR 62.91 BUN/Creatinine Ratio 22.7 H Glucose 95 POC Glucose 196 H 228 H Calcium 8.1 L 05/21/24 05/21/24 05/21/24 07:32 11:11 16:24 WBC RBC Hgb Hct MCV MCH MCHC RDW Std Deviation RDW Coeff of Linda Plt Count MPV Absolute Nucleated RBC Nucleated RBC % (auto) Sodium Potassium Chloride Carbon Dioxide Anion Gap BUN Creatinine Est Cr Clr Drug Dosing eGFR BUN/Creatinine Ratio Glucose POC Glucose 116 H 177 H 88 Calcium PG Care Time/CCT Total # of Minutes Spent Total Time Spent with Patient: Total time spent is greater than 50% in coordination of care (as documented) at patient's floor/unit and/or counseling patient: Coding Level of Care Code 90873 SUB INP/OBS CARE 2/35MIN Diagnoses Left lumbar radiculopathy M54.16 Acute blood loss anemia D62 TAYLOR (acute kidney injury) N17.9 Lumbar spinal stenosis M48.061 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
[2024-05-21] MEDS ORDERED: oxyCODONE HCL IR 5 MG TAB (IMMEDIATE RELEASE) PO PRN (18:25)
[2024-05-22 06:30] LABS: Hematocrit (blood only) 26.7 % (42.0-52.0); Hemoglobin 8.9 g/dl (14.0-18.0); Mean Corpuscular Hemoglobin 29.9 pg (25.0-34.0); Mean Corpuscular Hgb Conc 33.3 g/dL (32.0-36.0); Mean Corpuscular Volume 89.6 fL (80.0-100.0); Mean Platelet Volume 10.5 fL (9.4-12.4); Nucleated RBC # (auto) 0.09 K/uL (0.00-0.12); Nucleated RBC % (auto) 0.6 %; Platelet Count 214 K/uL (130-400); RDW Coefficient of Variation 19.8 % (11.5-14.5); RDW Standard Deviation 63.8 fL (36.4-46.3); Red Blood Count 2.98 M/uL (4.70-6.10); White Blood Count 15.36 K/ul (4.8-10.8)
[2024-05-22 06:49] LABS: BUN Creatinine Ratio 23.4 (10-20); Calcium 8.1 mg/dl (8.6-10.3); Creatinine Clr Calc Pharmacy 60.8 ml/min; Potassium 3.9 mmol/L (3.5-5.1)
[2024-05-22] MEDS: LANTUS PER UNIT CHARGE SC SCH (08:30)
--- NOTE | 2024-05-22 13:24 | Pharmacy Report ---
Pharmacy Glycemic Short Note 2 - Date of Service May 22, 2024 - Glycemic Short BSG Results (Last 24 hours): 05/21/24 05/21/24 05/22/24 16:24 20:42 06:17 Glucose 162 H POC Glucose 88 79 05/22/24 05/22/24 07:29 11:41 Glucose POC Glucose 163 H 208 H OUTPATIENT ANTIDIABETIC REGIMEN: * Lantus 18 units SC AM and 24 units SC HS * Glimepiride 2 mg PO with breakfast, 1 mg lunch, 1 mg dinner HbA1c: 8.4% (04/13/24) ASSESSMENT: 05/22: * [place] received 32 units of insulin yesterday, 10 basal + 22 bolus. BSGs were [phone] mg/dL. * Dexamethasone was discontinued yesterday which is why basal dose was reduced. * Fasting BSG this AM was above goal at 163 mg/dL. Will increase AM basal to match home dosing. Will continue with previous HS basal scale in the event of hyperglycemia. Scale would provide a maximum of 28 units basal which is ~ 35% reduction from home dosing. * Because dinner and HS BSGs were below goal last evening, will loosen correction and carb ratio this AM. 05/21: * Blood sugars have been labile over past 48 hours, ranging 98-239 mg/dL * Received 60 units of insulin yesterday (25 units of basal and 35 units of prandial/correctional bolus) * Steroids have now been discontinued (was receiving dexamethasone 6 mg IV daily) * Plan is for d/c to rehab tomorrow (05/22) * Despite intermittent hyperglycemia, will decrease basal/loosen bolus parameter s today 05/19: * Pt is a 78 year old male admitted s/p spinal decompression-fusion surgery (POD #1). History of DM2 on insulin at home. Pharmacy consulted to assist with inpatient glycemic management. * BSGs elevated yesterday ([phone]/dL) and trended down this AM (84-63mg/dL). Received 45 units of SQ basal insulin yesterday, 20 units SQ regular insulin in the OR/PACU, and 26 units of SQ bolus insulin. * Received 4mg IV dex yesterday and continues on 6mg IV daily. Tolerating diet. Other stressors stable. * Will continue basal bolus insulin with reduced basal today. Lantus 15 units SQ X 1 at lunch and will add an HS scale 15-20 units depending on BSG. Novolog tightened to 20/5 yesterday and will loosen slightly given rapid correction last evening. PLAN FOR INPATIENT GLYCEMIC CONTROL: * Hold outpatient oral diabetes medications * Basal insulin * Lantus 18 units SC AM * Lantus 0-5-10 units SC HS (see eMAR for more details) * Bolus insulin * NovoLog per scale ACHS or Q6hrs while NPO * Goal Range: Low 110 mg/dL - High 140 mg/dL * Correction Factor: 30 mg/dL/unit * Nutritional / Prandial insulin per carb ratio of 1 unit per 9 grams CHO consumed
--- NOTE | 2024-05-22 14:11 | Hospitalist Progress Note ---
Date of Service May 22, 2024 Assessment & Plan (1) Left lumbar radiculopathy: Plan: 2nd to severe spinal stenosis at L5-S1, with mod-severe L4-L5 stenosis as well. Extensive l-spine surgery by Dr Brown. POD #4 s/p - removal of posterior instrumentation L2-L4; exploration of fusion L2-L4; excision of extradural mass L5-S1; lumbar decompression with bilateral medial facetectomies and foraminotomies L4-L5 L5-S1; posterior spinal fusion L4- S1; interbody fusion L5-S1; placement is #6 placement of posterior instrumentation L2-S1; interbody fusion L5-S1; placement of Spira 14 x 26 mm x 2 at L5-S1; placement locally harvested morselized autograft posterior gutters; placement of infuse collagen sponge, with Koros in the posterior lateral gutters and os design in the interbody space; application of versa wrap over the exposed dura. Deepika-operative course complicated by severe acute blood loss anemia with 1000cc+ blood loss. s/p 3 units PRBCs given in total since surgery. All of his back pain and radicular pain have resolved. NASEEM drain, kendall both have been d/c. Cont PT, OT. To rehab post-discharge at [facility]. (2) Acute blood loss anemia: Plan: 2nd to extensive back surgery as noted in #1 above. s/p 3 units PRBCs since surgery. H/H stable since then. Fecal occult obtained today due to report of dark stool - NEGATIVE. Repeat CBC am for stability. Cont Fe supplementation. 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 Patient on Metformin and Glimepiride at home as well as Lantus 20u daily - both PO agents on hold Pharmacy glycemic team providing oversight of lantus/novolog (6) Myelodysplasia (myelodysplastic syndrome): Plan: has been anemic dating back to well before 2019 Records indicate he has MDS Fe studies show adequate stores B12/folate levels in March 2024 were wnl total of 3 units of blood this admission repeat CBC today stable (7) BPH w urinary obs/LUTS: Plan: cont flomax and finasteride voiding fine (8) Gastric ulcer: Plan: multiple, shallow seen on EGD 04/12/[address] Marques cont PPI twice daily cont Carafate QID also on pepcid BID Fecal occult blood test today - NEGATIVE thus, dark stool 2nd to Fe supplements aspirin & plavix have been on hold can resume plavix tomorrow can stop pepcid (9) CAD, multiple vessel: Plan: most recent cath - 01/15/2021: Mid LAD stent patent. Patent proximal and mid OM1 stents. Small superior branch of OM1 with probable moderate ostial CAD, approximately 50-70%. Anterior takeoff of dominant RCA. Proximal RCA 30%. Proximal RCA stent mild in stent restenoses. Mid RCA 30-40%. Mid RCA stent mild InStent restenosis with distal margin approximately 40%. Distal RCA 40%. Distal RCA stent patent. Since H/H are stable and stool is heme negative can resume plavix tomorrow Cont statin, cont coreg BID No recent ischemic symptoms (10) S/P coronary artery stent placement: Plan: multiple PCIs in the past per records (11) Aneurysm of ascending aorta: Plan: 03/2024 CT -- 4.6cm in diameter cont yearly surveillance (12) S/P aortic valve replacement with bioprosthetic valve: Plan: Bioprosthetic aortic valve replacement 12/14/2011 Echo updated 05/17/24: L ventricular systolic function normal; no regional wall motion abnormalities; moderate LVH, EJ 60-65%; prosthetic aortic valve well sea aidan; gradient normal for prosthetic aortic valve; mild mitral regurg compared with study of 06/15/2023, no significant change (13) COPD (chronic obstructive pulmonary disease): Plan: no exacerbation at this time cont bronchodilators prn (14) Pacemaker: Plan: upgraded to BiV pacer [address] Kevan Choi most recent interrogation, 04/2024, with normal function (15) Hyperkalemia: Plan: peak K level 6.2 earlier this week (prior to his surgery) - s/p potassium binders, bicarb infusion, calcium, etc. - pt does chew tobacco - patient counseled the chewing tobacco contains potassium and that he should stop ; very well could be contributing to his somewhat chronic issue of high K - K levels have been normal his entire post-op course - Cont low K diet - if K levels become high again will send to nephrology for assistance with this Plan Hyperlipidemia - -Continue Atorvastatin 40mg po qHS Anxiety - chronic/stable -Continue Buspirone 30mg po TID Dementia - chronic/stable -Continue Aricept and Namenda PTSD - patient follows at the [facility] with Dr. Taylor -Continue Lamictal -Continue Duloxetine Dispo: [facility] for rehab hopefully tomorrow /son updated at bedside today Admission and Anticipated Discharge Date Admission Date: May 14, 2024 Subjective patient resting comfortably in bed his & son were visiting he c/o chronic neuropathy pain in his feet, but denied radicular pain in either leg denied back pain he had another "dark" stool today eating ok - ate good breakfast denies dyspnea denies chest pain he said "they [[facility]] will have a bed for me tomorrow" continues to chew tobacco we had a lengthy discussion about the chewing tobacco and the high potassium in it Review of Systems Review of Systems: cv - no orthopnea or edema pulm - no wheezing, no dyspnea GI - no abd pain or pain w/ eating; no N/V Physical Exam Physical Exam: gen - NAD, laying comfortably in bed neck - no JVD mouth - MMM heart - RRR, s1 s2, 2/6 ONI RUSB lungs - CTA b/l; no wheezes today; no rales abd - soft NT ND BS+ ext - no edema, pulses 2+ b/l neuro - strength 5/5 x both legs all muscle groups Results & Data Results & Data Vital Signs (Past 12 Hours) Vital Signs Temp Pulse Pulse Resp BP Pulse Ox O2 Del Method 05/22/24 11:37 36.8 C 64 18 128/71 93 Room Air 05/22/24 10:17 Room Air 05/22/24 07:26 36.7 C 67 18 138/67 94 Room Air 05/22/24 07:09 62 05/22/24 03:40 36.4 C L 120 H 18 137/73 92 Room Air Laboratory Results Laboratory Results - last 24 hr 05/21/24 05/21/24 05/22/24 16:24 20:42 06:17 WBC 15.36 H RBC 2.98 L Hgb 8.9 L Hct 26.7 L MCV 89.6 MCH 29.9 MCHC 33.3 RDW Std Deviation 63.8 H RDW Coeff of Linda 19.8 H Plt Count 214 MPV 10.5 Absolute Nucleated RBC 0.09 Nucleated RBC % (auto) 0.6 Sodium 138 Potassium 3.9 Chloride 104 Carbon Dioxide 28 Anion Gap 6 BUN 26 H Creatinine 1.11 Est Cr Clr Drug Dosing 60.8 eGFR 68.39 BUN/Creatinine Ratio 23.4 H Glucose 162 H POC Glucose 88 79 Calcium 8.1 L 05/22/24 05/22/24 07:29 11:41 WBC RBC Hgb Hct MCV MCH MCHC RDW Std Deviation RDW Coeff of Linda Plt Count MPV Absolute Nucleated RBC Nucleated RBC % (auto) Sodium Potassium Chloride Carbon Dioxide Anion Gap BUN Creatinine Est Cr Clr Drug Dosing eGFR BUN/Creatinine Ratio Glucose POC Glucose 163 H 208 H Calcium PG Care Time/CCT Total # of Minutes Spent Total Time Spent with Patient: Total time spent is greater than 50% in coordination of care (as documented) at patient's floor/unit and/or counseling patient: Coding Level of Care Code 11533 SUB INP/OBS CARE 2/35MIN Diagnoses Left lumbar radiculopathy M54.16 Acute blood loss anemia D62 TAYLOR (acute kidney injury) N17.9 Lumbar spinal stenosis M48.061 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
[2024-05-23 07:32] LABS: Hematocrit (blood only) 28.1 % (42.0-52.0); Mean Corpuscular Hemoglobin 29.1 pg (25.0-34.0); Mean Corpuscular Volume 90.9 fL (80.0-100.0); RDW Coefficient of Variation 19.9 % (11.5-14.5); RDW Standard Deviation 65.9 fL (36.4-46.3); Red Blood Count 3.09 M/uL (4.70-6.10); White Blood Count 16.33 K/ul (4.8-10.8)
[2024-05-23 07:33] LABS: Mean Platelet Volume 10.5 fL (9.4-12.4); Nucleated RBC # (auto) 0.02 K/uL (0.00-0.12); Nucleated RBC % (auto) 0.1 %; Platelet Count 251 K/uL (130-400)
[2024-05-23 07:49] LABS: BUN Creatinine Ratio 20.2 (10-20); Calcium 8.2 mg/dl (8.6-10.3); Creatinine Clr Calc Pharmacy 61.6 ml/min; Potassium 4.2 mmol/L (3.5-5.1)
[2024-05-23] MEDS: INSULIN ASPART PER UNIT CHARGE SC SCH ×2 (08:25→12:01)
--- NOTE | 2024-05-23 10:19 | Hospitalist Progress Note ---
Date of Service May 23, 2024 Assessment & Plan (1) Orthostatic hypotension: Plan: Symptomatic severe drop in BP with PT today Fever overnight T max 38.4 -bolus NS 1L -hold aricept, flomax, carvedilol and decrease gabapentin to 300 mg tid -UA obtained and was negative -Hemoglobin stable this AM at 9.0 -has leukocytosis 16K but had dexamethasone through 05/21 -no pulmonary or GI symptoms and no hypoxia -monitor temp and CBC, CXR and blood culture if recurrent fever -possibly fever related to atelectasis, continue mobility, ordered IS (2) Left lumbar radiculopathy: Plan: 2nd to severe spinal stenosis at L5-S1, with mod-severe L4-L5 stenosis as well. Extensive l-spine surgery by Dr Brown. 05/18 removal of posterior instrumentation L2-L4; exploration of fusion L2-L4; excision of extradural mass L5-S1; lumbar decompression with bilateral medial facetectomies and foraminotomies L4-L5 L5-S1; posterior spinal fusion L4-S1; interbody fusion L5-S1; placement is #6 placement of posterior instrumentation L2-S1; interbody fusion L5-S1; placement of Spira 14 x 26 mm x 2 at L5-S1; placement locally harvested morselized autograft posterior gutters; placement of infuse collagen sponge, with Koros in the posterior lateral gutters and os design in the interbody space; application of versa wrap over the exposed dura. Deepika-operative course complicated by severe acute blood loss anemia with 1000cc+ blood loss. s/p 3 units PRBCs total since surgery. All of his back pain and radicular pain have resolved. NASEEM drain, kendall both have been d/c. Cont PT, OT. To rehab post-discharge at [facility]. (3) Acute blood loss anemia: Plan: 2nd to extensive back surgery as noted in #1 above. s/p 3 units PRBCs since surgery. FOBT neg Hg stable at 9 today Cont Fe supplementation. 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 Patient on Metformin and Glimepiride at home as well as Lantus 20u daily - both PO agents on hold Pharmacy glycemic team providing oversight of lantus/novolog (7) Myelodysplasia (myelodysplastic syndrome): Plan: has been anemic dating back to well before 2019 Records indicate he has MDS Fe studies show adequate stores B12/folate levels in March 2024 were wnl total of 3 units of blood this admission CBC stable (8) BPH w urinary obs/LUTS: Plan: hold flomax and cont finasteride voiding fine (9) Gastric ulcer: Plan: multiple, shallow seen on EGD 04/12/[address] Marques cont PPI twice daily cont Carafate QID -resumed ASA and plavix 05/23 (10) CAD, multiple vessel: Plan: most recent cath - 01/15/2021: Mid LAD stent patent. Patent proximal and mid OM1 stents. Small superior branch of OM1 with probable moderate ostial CAD, approximately 50-70%. Anterior takeoff of dominant RCA. Proximal RCA 30%. Proximal RCA stent mild in stent restenoses. Mid RCA 30-40%. Mid RCA stent mild InStent restenosis with distal margin approximately 40%. Distal RCA 40%. Distal RCA stent patent. Cont statin and ASA/plavix, coreg held for orthostatic hypotension No recent ischemic symptoms (11) S/P coronary artery stent placement: Plan: multiple PCIs in the past per records (12) Aneurysm of ascending aorta: Plan: 03/2024 CT -- 4.6cm in diameter cont yearly surveillance (13) S/P aortic valve replacement with bioprosthetic valve: Plan: Bioprosthetic aortic valve replacement 12/14/2011 Echo updated 05/17/24: L ventricular systolic function normal; no regional wall motion abnormalities; moderate LVH, EJ 60-65%; prosthetic aortic valve well seated; gradient normal for prosthetic aortic valve; mild mitral regurg compared with study of 06/15/2023, no significant change (14) COPD (chronic obstructive pulmonary disease): Plan: no exacerbation at this time cont bronchodilators prn (15) Pacemaker: Plan: upgraded to BiV pacer [address] Kevan Choi most recent interrogation, 04/2024, with normal function (16) Hyperkalemia: Plan: peak K level 6.2 earlier this week (prior to his surgery) - s/p potassium binders, bicarb infusion, calcium, etc. - pt does chew tobacco - patient counseled the chewing tobacco contains potassium and that he should stop ; very well could be contributing to his somewhat chronic issue of high K - K levels have been normal his entire post-op course - Cont low K diet - 4.2 today - if K levels become high again will send to nephrology for assistance with this Plan Hyperlipidemia - -Continue Atorvastatin 40mg po qHS Anxiety - chronic/stable -Continue Buspirone 30mg po TID Dementia - chronic/stable -Continue Aricept (held for orthostasis) and Namenda PTSD - patient follows at the [facility] with Dr. Taylor -Continue Lamictal -Continue Duloxetine Dispo: [facility] for rehab hopefully tomorrow discussed with care coord Admission and Anticipated Discharge Date Admission Date: May 14, 2024 Subjective Mr Wright states he is feeling well. No leg/back pain. His butt is sore from sitting in the chair. He was not symptomatic of lightheadedness when orthostatic vitals were taken by PT this am. He says his BP always fluctuates a lot, sometimes high and sometimes very low. No cough CP or SOB, no abd pain or N/V/D, no dysuria or urinary frequency Physical Exam 2 Physical Exam: PHYSICAL EXAMINATION Last 24h vital signs reviewed, see documentation in flowsheet General: comfortable appearing, no distress, sitting up in chair HEENT: Normocephalic, atraumatic, pupils round and equal, sclerae anicteric, no conjunctival injection, moist mucus membranes Lungs: Normal respiratory effort. diminished with slight crackles in bases Heart: Regular rate and rhythm, no murmurs. No JVD Abdomen: Soft, nontender, nondistended. Bowel sounds present. Back incision looks very good - well opposed, no swelling, no erythema or drainage, no drains in place Extremities: Warm, dry, well-perfused. No extremity edema. Neuro: Alert and oriented x 4, face symmetric, moves 4 extremities well Psych: Normal affect and behavior Results & Data Results & Data Vital Signs (Past 12 Hours) Vital Signs Temp Pulse Pulse Resp BP BP Pulse Ox 05/23/24 07:50 70 05/23/24 07:50 05/23/24 07:46 36.8 C 99 H 18 103/64 95 05/23/24 03:32 36.6 C 67 18 140/69 95 05/23/24 02:13 36.8 C 05/23/24 01:26 05/22/24 22:37 38.4 C H 74 18 147/69 H 95 O2 Del Method 05/23/24 07:50 05/23/24 07:50 Room Air 05/23/24 07:46 Room Air 05/23/24 03:32 Room Air 05/23/24 02:13 05/23/24 01:26 Room Air 05/22/24 22:37 Room Air Laboratory Results 05/23/24 07:12 05/23/24 07:12 PG Care Time/CCT Total # of Minutes Spent Total Time Spent with Patient: Total time spent is greater than 50% in coordination of care (as documented) at patient's floor/unit and/or counseling patient: Coding Level of Care Code 47729 SUB INP/OBS CARE 2/35MIN Diagnoses Orthostatic hypotension I95.1 Left lumbar radiculopathy M54.16 Acute blood loss anemia D62 TAYLOR (acute kidney injury) N17.9 Lumbar spinal stenosis M48.061 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
[2024-05-23] MEDS: SODIUM CHLORIDE 0.9% 1,000 ML IV ONE (10:40)
--- NOTE | 2024-05-23 12:34 | Pharmacy Report ---
Pharmacy Glycemic Short Note 2 - Date of Service May 23, 2024 - Glycemic Short BSG Results (Last 24 hours): 05/22/24 05/22/24 05/23/24 16:11 20:25 07:12 Glucose 143 H POC Glucose 85 159 H 05/23/24 05/23/24 07:30 11:40 Glucose POC Glucose 149 H 155 H OUTPATIENT ANTIDIABETIC REGIMEN: * Lantus 18 units SC AM and 24 units SC HS * Glimepiride 2 mg PO with breakfast, 1 mg lunch, 1 mg dinner HbA1c: 8.4% (04/13/24) ASSESSMENT: 05/23: * Stressors stable * AM fasting BSG in goal range - no change to basal * Trend noted w post-prandial BSG's - often highest BSG is lunch w BSG below goal at dinner. Question overcorrection with lunch 2nd elevated BSG. Will therefore tighten carb ratio at breakfast only 05/22: * [place]cho received 32 units of insulin yesterday, 10 basal + 22 bolus. BSGs were 589-899-16-79 mg/dL. * Dexamethasone was discontinued yesterday which is why basal dose was reduced. * Fasting BSG this AM was above goal at 163 mg/dL. Will increase AM basal to match home dosing. Will continue with previous HS basal scale in the event of hyperglycemia. Scale would provide a maximum of 28 units basal which is ~ 35% reduction from home dosing. * Because dinner and HS BSGs were below goal last evening, will loosen correction and carb ratio this AM. 05/21: * Blood sugars have been labile over past 48 hours, ranging 98-239 mg/dL * Received 60 units of insulin yesterday (25 units of basal and 35 units of prandial/correctional bolus) * Steroids have now been discontinued (was receiving dexamethasone 6 mg IV daily) * Plan is for d/c to rehab tomorrow (05/22) * Despite intermittent hyperglycemia, will decrease basal/loosen bolus parameters today 05/19: * Pt is a 78 year old male admitted s/p spinal decompression-fusion surgery (POD #1). History of DM2 on insulin at home. Pharmacy consulted to assist with inpatient glycemic management. * BSGs elevated yesterday ([phone]/dL) and trended down this AM (84-63mg/dL). Received 45 units of SQ basal insulin yesterday, 20 units SQ regular insulin in the OR/PACU, and 26 units of SQ bolus insulin. * Received 4mg IV dex yesterday and continues on 6mg IV daily. Tolerating diet. Other stressors stable. * Will continue basal bolus insulin with reduced basal today. Lantus 15 units SQ X 1 at lunch and will add an HS scale 15-20 units depending on BSG. Novolog tightened to 20/5 yesterday and will loosen slightly given rapid correction last evening. PLAN FOR INPATIENT GLYCEMIC CONTROL: * Hold outpatient oral diabetes medications * Basal insulin * Lantus 18 units SC AM * Lantus 0-5-10 units SC HS (see eMAR for more details) * Bolus insulin * NovoLog per scale ACHS or Q6hrs while NPO * Goal Range: Low 110 mg/dL - High 140 mg/dL * Correction Factor: 30 mg/dL/unit * Carb ratio: 8 g CHO/unit with breakfast, 9 g CHO/unit with lunch, dinner, bedtime
[2024-05-23 12:56] LABS: Appearance Urine Clear (Clear); Bacteria Urine Automated None Seen (None Seen); Bilirubin Urine Negative (Negative); Blood Urine Negative (Negative); Cast Urine Automated 0-2 /lpf (0-2); Color Urine Yellow; Epithelial Cell Urine Auto 0-2 /hpf (0-2); Glucose Urine UA Negative (Negative); Ketones Urine Negative (Negative); Leukocyte Esterase Urine Negative (Negative); Nitrite Urine Negative (Negative); Protein Urine 1+ (Negative); RBC Urine Automated 0-2 /hpf (0-2); Specific Gravity Urine 1.024 (1.000-1.030); Urobilinogen Urine Negative (Negative); WBC Urine Automated 0-5 /hpf (0-5); pH Urine 5.5 (4.5-7.5)
[2024-05-23] MEDS: GABAPENTIN 300 MG CAP PO SCH (14:55)
--- NOTE | 2024-05-23 18:11 | Communication Note ---
Date of Service: May 23, 2024 I updated his daughter Aaliyah by phone. His family noticed some confusion today - he did not recall that he had surgery, and did not know who Dr. Brown was, for example - which is not usual for him. He said that he drank hot coffee right before his temp was taken last night (was at 10:30 pm however), and for Angela denied any symptoms when standing with PT, denied having had low blood pressure. Unclear whether he's confused about these things or whether he's saying this because he wants to go home sooner. For myself and bedside RN today he did not seem confused. Also he seems to be physically doing worse the past 48h with PT/OT compared to 3-4 days ago - not walking as far and more symptomatic. He may have a mild delirium, which would be consistent with this waxing and waning. Plan to continue holding meds that could contribute to orthostasis (flomax, carvedilol, aricept) decreased gabapentin dose, continue assessing for infection - UA was normal, CXR pending, back incision looks excellent. AM CBC and BMP as well as orthostatics. I strongly believe he would benefit from halfway stay for rehab for ongoing PT and OT as well as medical supervision for medications, vital signs, at this time.
[2024-05-23] MEDS: CLOPIDOGREL BISULFATE 75 MG TAB PO SCH (21:14)
[2024-05-24 07:15] LABS: Hematocrit (blood only) 28.2 % (42.0-52.0); Mean Corpuscular Hemoglobin 29.1 pg (25.0-34.0); Mean Corpuscular Hgb Conc 31.9 g/dL (32.0-36.0); Mean Corpuscular Volume 91.3 fL (80.0-100.0); Mean Platelet Volume 10.5 fL (9.4-12.4); Platelet Count 289 K/uL (130-400); RDW Coefficient of Variation 19.3 % (11.5-14.5); RDW Standard Deviation 64.6 fL (36.4-46.3); Red Blood Count 3.09 M/uL (4.70-6.10); White Blood Count 14.45 K/ul (4.8-10.8)
[2024-05-24 07:42] LABS: Calcium 8.2 mg/dl (8.6-10.3)
[2024-05-24 07:48] LABS: BUN Creatinine Ratio 18.9 (10-20); Creatinine Clr Calc Pharmacy 60.5 ml/min
[2024-05-24] MEDS: LANTUS PER UNIT CHARGE SC SCH (08:39)
--- NOTE | 2024-05-24 14:49 | Hospitalist Progress Note ---
<Statement entered by Deneen Stuart MD - 05/24/24 16:17> I have reviewed vital signs, chart notes, labs and imaging. I have personally seen, evaluated and examined the patient. I have also discussed the management of the patient with the [facility] and I agree with the exam findings documented in the history and physical examination and the documented assessment and plan unless otherwise stated below. Orthostasis was better on PT assessment today he continued to be 100/73 standing and asymptomatic which is a big improvement compared to yesterday, supine he was 124/80 he continues to be very inconsistent with his tolerance to PT for session today he did not do very much she had electrical shock type pains in his buttocks legs when he stood up only went about 5 feet with assistance, he was having some confusion at that time per the therapist second PT session later in the day he continued to have some electrical shock pain in his legs buttocks 21st at up but then he was able to ambulate 120 feet with the physical therapist and walker he was not confused when I assessed him midday he was sitting in the chair denied shortness of breath or chest pain lungs were clear heart regular no murmurs abdomen soft nontender nondistended lower extremities warm and warm well-perfused without edema his back incision continues to heal well with no erythema no drainage sutures are well opposed continues to have fluctuating level of consciousness with confusion that waxes and wanes consistent with some mild acute delirium though on the balance remains oriented x 4 pain has been controlled on acetaminophen, though it is exacerbated when he first stands up Date of Service May 24, 2024 Assessment & Plan (1) Orthostatic hypotension: Plan: Symptomatic severe drop in BP with PT 05/23 with fever overnight T max 38.4; has improved 05/24 - BP in normal range following bolus NS 1 L and trial of holding aricept, flomax, carvedilol and decreasing gabapentin to 300 mg tid - UA negative - H/H stable at 05/06.2 - Leukocytosis 16.33-> 14.45 but had dexamethasone through 05/21, no source of infection identified following thorough investigation - No pulmonary symptoms to include no hypoxia, and no GI symptoms - If recurrent fever, repeat CBC, CXR and blood culture: Monitor temp; 36.6 today - Possibly fever related to atelectasis; physical exam of lungs WNL; patient continues to walk hallway, continue to encourage mobility. Incentive spirometer provided (2) Left lumbar radiculopathy: Plan: 2nd to severe spinal stenosis at L5-S1, with mod-severe L4-L5 stenosis as well. Extensive l-spine surgery by Dr Brown. - 05/18- removal of posterior instrumentation L2-L4; exploration of fusion L2- L4; excision of extradural mass L5-S1; lumbar decompression with bilateral medial facetectomies and foraminotomies L4-L5 L5-S1; posterior spinal fusion L4- S1; interbody fusion L5-S1; placement is #6 placement of posterior instrumentation L2-S1; interbody fusion L5-S1; placement of Spira 14 x 26 mm x 2 at L5-S1; placement locally harvested morselized autograft posterior gutters; placement of infuse collagen sponge, with Koros in the posterior lateral gutters and os design in the interbody space; application of versa wrap over the exposed dura. - Deepika-operative course complicated by severe acute blood loss anemia with 1000cc+ blood loss; s/p 3 units PRBCs total since surgery. - Back and radicular pain has resolved completely - NASEEM drain and Hudson discontinued - Cont PT, OT. To rehab post-discharge at [facility] tomorrow, 05/25 (3) Acute blood loss anemia: Plan: 2nd to extensive back surgery as noted in #1 above; s/p 3 units PRBCs since surgery. - Question of melanotic stool; FOBT neg - Hg stable at 9 - Cont Fe supplementation. 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 - Patient on Metformin and Glimepiride at home as well as Lantus 20u daily - both PO agents on hold - Pharmacy glycemic team providing oversight of lantus/novolog (7) Myelodysplasia (myelodysplastic syndrome): Plan: H/L of anemia before prior to 2019, and ongoing; Records indicate he has MDS - Fe studies show adequate stores - B12/folate levels in March 2024 WNL - Total of 3 units of blood this admission - CBC stable; asymptomatic (8) BPH w urinary obs/LUTS: Plan: At home regimen of Flomax and finasteride - Catheter has been removed - Holding Flomax 2/2 episode of orthostasis 05/23; continue to hold throughout SNF transition and follow-up with PCP regarding dose - Continue finasteride - Voiding fine; no LUTS (9) Gastric ulcer: Plan: Multiple, shallow ulcers seen on EGD 04/12/[address] Marques - Continue PPI twice daily - Continue Carafate QID - Resumed ASA and plavix 05/23 (10) CAD, multiple vessel: Plan: Most recent cath - 01/15/2021: Mid LAD stent patent. Patent proximal and mid OM1 stents. Small superior branch of OM1 with probable moderate ostial CAD, approximately 50-70%. Anterior takeoff of dominant RCA. Proximal RCA 30%. Proximal RCA stent mild in stent restenoses. Mid RCA 30-40%. Mid RCA stent mild InStent restenosis with distal margin approximately 40%. Distal RCA 40%. Distal RCA stent patent. - Cont statin and ASA/plavix - Coreg held for orthostatic hypotension; continue to hold throughout SNF transition and follow-up with PCP regarding dose - No recent ischemic symptoms (11) S/P coronary artery stent placement: Plan: Multiple PCIs in the past per records (12) Aneurysm of ascending aorta: Plan: 03/2024 CT -- 4.6cm in diameter - Continue yearly surveillance (13) S/P aortic valve replacement with bioprosthetic valve: Plan: Bioprosthetic aortic valve replacement 12/14/2011 - Echo updated 05/17/24: L ventricular systolic function normal; no regional wall motion abnormalities; moderate LVH, EJ 60-65%; prosthetic aortic valve well seated; gradient normal for prosthetic aortic valve; mild mitral regurg - Compared with study of 06/15/2023, no significant change (14) COPD (chronic obstructive pulmonary disease): Plan: No exacerbation at this time - Continue bronchodilators prn (15) Pacemaker: Plan: Upgraded to BiV pacer [address] Kevan Choi - Most recent interrogation, 04/2024, with normal function (16) Hyperkalemia: Plan: Peak K level 6.2 earlier this week (prior to his surgery) - S/p potassium binders, bicarb infusion, calcium, etc. - Pt does chew tobacco - patient counseled the chewing tobacco contains potassium and that he should stop; very well could be contributing to his somewhat chronic issue of high K - K levels have been normal his entire post-op course - Cont low K diet - 4.0 today - if K levels become high again will send to nephrology for assistance with this Plan Hyperlipidemia - -Continue Atorvastatin 40mg po qHS Anxiety - chronic/stable -Continue Buspirone 30mg po TID Dementia - chronic/stable - Continue Namenda - Holding Aricept 2/2 orthostasis PTSD - patient follows at the [facility] with Dr. Taylor - Continue Lamictal - Continue Duloxetine Dispo: [facility] for rehab tomorrow, 05/25 Code: Full Admission and Anticipated Discharge Date Admission Date: May 14, 2024 Subjective Pt is sitting in chair at beside at time of visit. States that he is experiencing no back pain. Reports that he is ready to be discharged. Denies F/C, chest pain, shortness of breath, abdominal pain, N/V/D/C, dysuria, retention. No additional dark-colored stools. No new concerns per nursing. Telemetry: Paced at 65. Review of Systems Review of Systems: All systems reviewed & are unremarkable except as noted in Subjective Physical Exam Constitutional: no acute distress Eyes: PERRL, conjunctivae normal, anicteric sclerae ENMT: Ears: + hearing impairment Respiratory: normal respiratory effort, lungs clear to auscultation Cardiovascular: RRR, no murmur, no edema Rate/Rhythm: regular rate and regular rhythm Heart Sounds: normal S1, normal S2 and + murmur (Soft systolic murmur at LUSB) Extremities: no calf tenderness and no edema Gastrointestinal (Abdomen): normal bowel sounds, soft, nontender, no hepatosplenomegaly Results & Data Results & Data Vital Signs (Past 12 Hours) Vital Signs Temp Pulse Pulse Resp BP Pulse Ox O2 Del Method 05/24/24 10:58 36.6 C 79 22 145/78 H 97 Room Air 05/24/24 09:27 67 05/24/24 07:00 36.6 C 70 20 163/73 H 95 Room Air 05/24/24 03:48 36.7 C 68 18 164/83 H 96 Room Air PG Care Time/CCT Total # of Minutes Spent Total Time Spent with Patient: Total time spent is greater than 50% in coordination of care (as documented) at patient's floor/unit and/or counseling patient: Coding [place] [address] SUB INP/OBS CARE 2/35MIN Patient Type Established Medical Decision Making Moderate Complexity Diagnoses Orthostatic hypotension I95.1 Left lumbar radiculopathy M54.16 Acute blood loss anemia D62 TAYLOR (acute kidney injury) N17.9 Lumbar spinal stenosis M48.061 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
[2024-05-24 14:59] VITALS: PULSE 86; RESP 20; TEMP 97.7; O2SAT 98
--- NOTE | 2024-05-24 16:43 | Discharge Summary ---
Discharge Summary Date of Service May 24, 2024 Principal Dx & Hospital Course #1 = Principal Diagnosis (1) Left lumbar radiculopathy: 2nd to severe spinal stenosis at L5-S1, with mod-severe L4-L5 stenosis as well. Extensive l-spine surgery by Dr Brown. - 05/18- removal of posterior instrumentation L2-L4; exploration of fusion L2- L4; excision of extradural mass L5-S1; lumbar decompression with bilateral medial facetectomies and foraminotomies L4-L5 L5-S1; posterior spinal fusion L4- S1; interbody fusion L5-S1; placement is #6 placement of posterior instrumentation L2-S1; interbody fusion L5-S1; placement of Spira 14 x 26 mm x 2 at L5-S1; placement locally harvested morselized autograft posterior gutters; placement of infuse collagen sponge, with Koros in the posterior lateral gutters and os design in the interbody space; application of versa wrap over the exposed dura. - Deepika-operative course complicated by severe acute blood loss anemia with 1000cc+ blood loss; s/p 3 units PRBCs total following surgery. - Back and radicular pain improved, does have some shooting pain when first standing up that seems to improve with ambulation - Cont PT, OT (2) Orthostatic hypotension: Symptomatic severe drop in BP with PT 05/23 with single fever evening of 05/22 to 38.4 - BP in normal range following bolus NS 1 L and trial of holding aricept, flomax, carvedilol and decreasing gabapentin to 300 mg tid - UA negative, he refused CXR - H/H stable at 28.2 - Leukocytosis 16.33-> 14.45 but had dexamethasone through 05/21, no source of infection identified following thorough investigation - No pulmonary symptoms to include no hypoxia, and no GI symptoms - Possibly was atelectasis, fever did not recur Orthostatic hypotension improved today. Orthostasis was better on PT assessment today he continued to be 100/73 standing and asymptomatic which is a big improvement compared to yesterday, supine he was 124/80 -continue holding carvedilol and tamsulosin/afluzosin until orthostasis resol ves/improves Has some dementia but has been intermittently more confused than usual consistent with mild acute delirium. continuing aricept and namenda. gabapentin dose decreased. not needing opioids, using APAP for pain (3) Acute blood loss anemia: 2nd to extensive back surgery as noted in #1 above; s/p 3 units PRBCs since surgery. - Question of melanotic stool; FOBT neg - Hg stable at 9 - Cont Fe supplementation. 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 - Patient on Metformin and Glimepiride at home as well as Lantus 20u daily - Currently only on glargine 10u daily (7) Myelodysplasia (myelodysplastic syndrome): H/L of anemia before prior to 2019, and ongoing; Records indicate he has MDS - Fe studies show adequate stores - B12/folate levels in March 2024 WNL - Total of 3 units of blood this admission - CBC stable; asymptomatic (8) BPH w urinary obs/LUTS: At home regimen of Flomax and finasteride - Catheter has been removed - Holding Flomax 2/2 episode of orthostasis 05/23 - Continue finasteride - Voiding fine; no LUTS (9) Gastric ulcer: Multiple, shallow ulcers seen on EGD 04/12/[address] Marques - Continue PPI twice daily - Resumed ASA and plavix 05/23 (10) CAD, multiple vessel: Most recent cath - 01/15/2021: Mid LAD stent patent. Patent proximal and mid OM1 stents. Small superior branch of OM1 with probable moderate ostial CAD, approximately 50-70%. Anterior takeoff of dominant RCA. Proximal RCA 30%. Proximal RCA stent mild in stent restenoses. Mid RCA 30-40%. Mid RCA stent mild InStent restenosis with distal margin approximately 40%. Distal RCA 40%. Distal RCA stent patent. - Cont statin and ASA/plavix - Coreg held for orthostatic hypotension; resume when orthostatic symptoms resolved, can replace with toprol XL if necessary for less hypotensive effect - No recent ischemic symptoms (11) S/P coronary artery stent placement: Multiple PCIs in the past per records (12) Aneurysm of ascending aorta: 03/2024 CT -- 4.6cm in diameter - Continue yearly surveillance (13) S/P aortic valve replacement with bioprosthetic valve: Bioprosthetic aortic valve replacement 12/14/2011 - Echo updated 05/17/24: L ventricular systolic function normal; no regional wall motion abnormalities; moderate LVH, EJ 60-65%; prosthetic aortic valve well seated; gradient normal for prosthetic aortic valve; mild mitral regurg - Compared with study of 06/15/2023, no significant change (14) COPD (chronic obstructive pulmonary disease): No exacerbation at this time - Continue bronchodilators prn (15) Pacemaker: Upgraded to BiV pacer [address] Kevan Choi - Most recent interrogation, 04/2024, with normal function (16) Hyperkalemia: Peak K level 6.2 earlier this week (prior to his surgery) - S/p potassium binders, bicarb infusion, calcium, etc. - Pt does chew tobacco - patient counseled the chewing tobacco contains potassium and that he should stop; very well could be contributing to his somewhat chronic issue of high K - K levels have been normal his entire post-op course - Cont low K diet - 4.0 on 05/23 - if K levels become high again will send to nephrology for assistance with this Plan Hyperlipidemia - -Continue Atorvastatin 40mg po qHS Anxiety - chronic/stable -Continue Buspirone 30mg po TID Dementia - chronic/stable - Continue Namenda, aricept PTSD - patient follows [facility] with Dr. Taylor - Continue Lamictal - Continue Duloxetine Notes For Next Care Provider Medication Changes From Visit gabapentin doose reduced, glargine dose reduced afluzosin held, carvedilol held Admission HPI Per Admitting Provider Chencho Wright is a pleasant 78yo male with history of DM, HTN, HLP, CAD, COPD, Dementia and PAD presenting from home with acute on chronic back pain now with worsening left sided radiuculopathy. Patient reports longstanding history of back pain. Patient with history of lumbar decompression L2-L3, L3-L4 with removal of herniated free fragments from L2-L3 performed by Dr. Brown on 05/10/20. He had recurrence of pain shortly following the surgery and returned to the OR on 07/25/20 for revision and fusion. Patient with chronic, ongoing back pain. He now follows with pain management. He had an epidural steroid infection L5-S1 on 03/06/24 at [facility] with good response x 2 weeks. He was seen again by Pain Management in [place] last week and had 2 injections. Patient has had progressive worsening of his lumbar pain over the last two months with acute worsening over the last 2-3 days. He reports pain mainly on the left side with radiation down his left thigh - anterior and posterior, into the leg. He reports weakness of his leg and inability to walk. He reports that he has not been very active or mobile for the last several years and spends a lot of his time in a recliner chair. Over the last 2-3 days he has not been able to get out of his chair due to pain. Patient denies falls or trauma, no changes in bowel or bladder continence. no fever, chills, abdominal pain, chest pain, cough or SOB. No additional complaints at this time. In the ER he is afebrile, HD stable and NAD ER course: Zofran 4mg IV Morphine 4mg IV x 2 Glargine 7u Aspart 3u Discharge Exam PHYSICAL EXAMINATION Last 24h vital signs reviewed, see documentation in flowsheet General: comfortable appearing, no distress, sitting up in chair HEENT: Normocephalic, atraumatic, pupils round and equal, sclerae anicteric, no conjunctival injection, moist mucus membranes Lungs: Normal respiratory effort. diminished in bases but clear Heart: Regular rate and rhythm, no murmurs. No JVD Abdomen: Soft, nontender, nondistended. Bowel sounds present. Back incision looks very good - well opposed, no swelling, no erythema or drainage, no drains in place - same 05/24 Extremities: Warm, dry, well-perfused. No extremity edema. Neuro: Alert and oriented x 4, face symmetric, moves 4 extremities well Psych: Normal affect and behavior Discharge Plan Discharge Items Patient Disposition: Transfer Alf Fac Reason For Visit: ACUTE ON CHRONIC BACK PAIN, LEFT RADICULAR SX Discharge Diagnosis: Acute on chronic back pain, s/p Sx intervention Activity: Per Instructions section Weightbearing: Full weightbearing Non-emergency contact: Primary Care Provider Call non-emergency contact if: you have any medication questions, your symptoms worsen, your pain is not controlled, your pain is worsening, your pain is unusual for you and your pain is concerning for you Follow-up/Referrals: Leandro Rdorigues MD [Primary Care Provider] - Diet: Carb Consistent or DM2 and Low Potassium (2gm) Addtl Attending Provider Instructions: ACTIVITY RECOMMENDATIONS: SELF CARE INSTRUCTIONS AFTER THORACIC/LUMBAR FUSIONS 1. You may walk to your tolerance. It is good exercise for your legs and back. Expect some back and intermittent leg aches and pains. 2. You may perform "counter-top" level activities (make a sandwich, anderson with a project, etc.). 3. No bending or lifting of more than 10 pounds or back twisting of any nature (roll like a log when turning in bed). 4. You may ride in a car for 20-30 minutes at a time. No driving until after your first visit with your doctor. 5. Frequent changes of position and restricting sitting to 30 minutes at a time will help limit the amount of back spasms and stiffness you may experience. 6. You may discontinue the use of ambulatory aids (cane, crutches, etc.) once your strength and confidence allow. 7. You may credit interviewer the shower and let water strike your incision when you arrive home at least once daily. Do not take a tub bath, sit in a hot tub or go into a swimming pool until after your first recheck in the office. 8. You may resume previous diet. SPECIAL CARE INSTRUCTIONS: VERY IMPORTANT TO READ AND REVIEW A. Your surgical incision has been closed with a cosmetic suture under the skin that will dissolve in about 6 weeks. In 14 days, you can use a pair of clean scissors and cut the suture that is left outside of the skin at t he ends of your incision. 1. The small skin tapes can be removed 7 days after surgery if they have not fallen off by that point. 2. You may keep the wound open to air as much as possible to promote healing after post-op day number 5 unless told otherwise by your doctor. 3. If you think the wound looks like it is becoming infected (redness or worsening drainage) and/or you are experiencing fever, chill or worsening back pain and muscle spasms, contact the office so that we may evaluate you as soon as possible. B. Complications are uncommon, but please contact us if you have any signs or symptoms of: 1. wound infection (fever higher than 102.5 degrees F, redness, separation of wound, drainage, or increasing pain from the incision) 2. blood clots in legs (pain, swelling, redness and warmth in legs) 3. urinary tract infection (fever higher than 102.5 degrees F, burning upon urination or increased frequency of urination) 4. nerve problems (inability to walk on your toes or heels, numbness, loss of bowel or bladder control) 5. any other symptoms that concern you C. Please call the office at if you have any concerns or questions about your operation or recovery. D. No smoking! Smoking drastically decreases the chance of a solid fusion. E. Do not take any anti-inflammatory medications (Indocin, Advil, Motrin, Aspirin, Naprosyn, etc.) as these may inhibit the chance of a solid fusion. Tylenol is okay to take for pain. MANAGING PAIN AFTER SPINAL SURGERY 1. Narcotic medication is intended for short-term use and will be provided for surgical pain. Surgical pain usually lasts for a period of 4-6 weeks. Narcotic medication includes Percocet, Vicodin, Darvocet, Tylenol #3 or Lortab. 2. Longer-term pain is more appropriately treated with non-narcotic medication such as Tylenol ES. 3. Muscle spasm is not appropriately treated with narcotics. Muscle relaxers such as Soma, Flexeril or Skelaxin can be used along with Tylenol ES. 4. Remember that we all live with some "aches and pains". This is not unusual or uncommon after an injury or as we get older. a. Back pain is expected and may include muscle spasms for 4 to 6 weeks after surgery. The pain should gradually improve. If the pain worsens for no apparent reason, please contact the office. b. Intermittent leg pain may also be experienced and should not be concerned about unless it worsens for no apparent reason. If so, please contact the office. 5. We will provide appropriate medication within the normal guidelines of their prescribed use. We will also be very cautious and aware of potential abuse and extended duration of patients' medication needs. a. Pain medications are for your comfort and to assist with sleep and rest so that the tissue can heal. They are not provided in order to return to normal activity and should not be used through the day. To do so or worsening pain at night can result from ongoing tissue damage and development of tolerance to the prescribed medicine. 6. Please allow 2-3 days to process refills. Prescriptions will not be mailed but must be picked up at the office. FOLLOW UP VISIT: Keep your scheduled follow-up appointment. Any questions, please call the office at . Addtl Medical Van Driver Provider Instructions: PT and OT evaluate and treat carvedilol and tamsulosin held for symptomatic orthostatic hypotension - resume if/when orthostasis symptoms resolve if unable to tolerate hypotensive effect of carvedilol can try metoprolol succinate instead monitor BMP periodically for hyperkalemia, continue low potassium diet blood glucose check qAC and qHS note has been on significantly less glargine in the hospital compared to usual home dose, despite postop steroids for back surgery premeal aspart/lispro correctional insulin Pending Studies at Discharge: No Stand-Alone Forms: [facility] Skilled Items Patient informed of condition?: Yes DNR: No Discharge Level of Care: Skilled Communicable Disease: No Discharge Prognosis: Stable Lines: None Urinary Catheter: No Medications and DC Order Prescriptions: New sennosides-docusate sodium [Senokot-S] 8.6-50 mg Tablet 2 tab PO HS Qty: 0 0RF bisacodyl 10 mg Suppository 10 mg NE DAILY PRNQty: 0 0RF insulin glargine [Lantus U-100 Insulin] 100 unit/mL Solution 10 unit SC DAILY Qty: 10 0RF acetaminophen [Tylenol Extra Strength] 500 mg Tablet 1,000 mg PO Q8 Qty: 0 0RF latanoprost 0.005 % Drops 1 drp ophthalmic (eye) QAM Qty: 0 0RF gabapentin 300 mg Capsule 300 mg PO TID Qty: 0 0RF ferrous sulfate 325 mg (65 mg iron) Tablet,Delayed Release (Dr/Ec) 325 mg PO Q48H Qty: 0 0RF Continued memantine 5 mg tablet 5 mg PO BID Qty: 180 3RF pantoprazole 40 mg tablet,delayed release (DR/EC) 40 mg PO BID Qty: 60 5RF (DME) transport wheel chair See Rx Instructions .Route .MEDSUPPLY Qty: 1 0RF Rx Instructions: As directed nitroglycerin [Nitrostat] 0.4 mg tablet, sublingual 0.4 mg Sublingual Q5M PRN (Reason: Chest Pain) Qty: 30 5RF Rx Instructions: place 1 tab under the tongue every 5 min. for up to 3 doses as needed for chest pain call 911 if pain persists cetirizine 10 mg tablet 10 mg PO DAILY PRN (Reason: allergy symptoms) Qty: 30 0RF ondansetron HCl 8 mg tablet 8 mg PO Q12H PRN (Reason: nausea and vomiting) Qty: 20 2RF hydrocortisone 2.5 % ointment 1 applic TOPICAL HS PRN (Reason: Itching) Qty: 28.35 11RF Rx Instructions: APPLY TO BOTH EARS duloxetine 60 mg capsule,delayed release(DR/EC) 60 mg PO BID Qty: 180 3RF buspirone 30 mg Tablet 30 mg PO TID finasteride 5 mg Tablet 5 mg PO QAM epinephrine [EpiPen] 0.3 mg/0.3 mL Auto-Injector 0.3 mg IM Q3H PRN (Reason: Allergy Symptoms) lamotrigine 200 mg Tablet 200 mg PO HS atorvastatin [Lipitor] 40 mg Tablet 40 mg PO HS donepezil 10 mg Tablet 10 mg PO QAM clopidogrel 75 mg tablet 75 mg PO HS albuterol sulfate 90 mcg/actuation Hfa Aerosol Inhaler 2 puff INHALATION Q4H PRN (Reason: Shortness Of Breath Or Wheezing) Breztri Aerosphere 160-9-4.8 mcg/actuation HFA aerosol inhaler 2 inh inhalation QAM mupirocin 2 % ointment 1 applic topical TID Qty: 15 0RF Rx Instructions: Apply a thin layer to the affected area 3 times daily. The area may be covered with gauze dressing. Continue for 1-2 weeks. timolol maleate (PF) 0.5 % Dropperette 1 drp OPHTHALMIC (EYE) HS dorzolamide (PF) 2 % Drops 1 drp OPHTHALMIC (EYE) HS glimepiride 1 mg tablet 1 mg PO UD Rx Instructions: 1 mg orally 2 pills with breakfast, 1 with lunch, and 1 with supper.; diclofenac sodium 1 % gel 2 g topical QID PRN (Reason: foot pain) Held alfuzosin 10 mg tablet extended release 24 hr 10 mg PO HS Hold Instructions: Resume on 06/21/24. held for orthostatic hypotension, resume when BP tolerates Rx Instructions: at bedtime for prostate symptoms. carvedilol 3.125 mg tablet 3.125 mg PO BID Hold Instructions: Resume on 06/21/24. held for orthostatic hypotension, resume when BP tolerates Rx Instructions: must administer with a meal/food insulin glargine [Lantus Solostar U-100 Insulin] 100 unit/mL (3 mL) insulin pen 18 - 24 unit SUBCUT BID Hold Instructions: Resume on 06/21/24. has been on lower dose while in hospital Rx Instructions: 18 units in am and 24 units at bedtime Discontinued gabapentin 300 mg capsule 600 mg PO TID peg 3350-electrolytes [GaviLyte-G] 236-22.74-6.74 -5.86 gram recon soln 240 ml PO Q10M Qty: 4000 0RF Rx Instructions: until fecal effluent is clear acetaminophen [Tylenol Extra Strength] 500 mg Tablet 1,000 mg PO TID PRN (Reason: Pain) Discharge Orders: Discharge Order (Routine); Ordered 05/24/24 Ordered By: Deneen Stuart Admission Data Admit Date/Time: 05/14/24 20:35 Attending Provider: Deneen Stuart Admit Provider: Shaheed Brown Primary Care Provider: Leandro Rodrigues Other Providers: [facility]; Shaheed Brown; [facility] Stay Data Consultations 05/14/24 20:35 Consult Orthopedic Surgery Routine Procedures Performed Operation Date: 05/18/24 09:35 Actual Procedures p L4-L5, L5-S1 Decompression and Fusion,(Not Applicable) - Shaheed Brown DO s L2-L3-L4 Hardware Removal(Not Applicable) - Shaheed Brown DO Diagnostic Imagining Performed 05/14/24 17:17 CT lumbar spine wo con Stat 05/16/24 00:00 MR lumbar spine wo con Urgent 05/18/24 09:35 FL lumbar spine 2-3V Routine Pending Results Patient Have Any Pending Studies at Discharge: No Discharge Instructions Given to Patient (Per Discharging Provider) ACTIVITY RECOMMENDATIONS: SELF CARE INSTRUCTIONS AFTER THORACIC/LUMBAR FUSIONS 1. You may walk to your tolerance. It is good exercise for your legs and back. Expect some back and intermittent leg aches and pains. 2. You may perform "counter-top" level activities (make a sandwich, anderson with a project, etc.). 3. No bending or lifting of more than 10 pounds or back twisting of any nature (roll like a log when turning in bed). 4. You may ride in a car for 20-30 minutes at a time. No driving until after your first visit with your doctor. 5. Frequent changes of position and restricting sitting to 30 minutes at a time will help limit the amount of back spasms and stiffness you may experience. 6. You may discontinue the use of ambulatory aids (cane, crutches, etc.) once your strength and confidence allow. 7. You may credit interviewer the shower and let water strike your incision when you arrive home at least once daily. Do not take a tub bath, sit in a hot tub or go into a swimming pool until after your first recheck in the office. 8. You may resume previous diet. SPECIAL CARE INSTRUCTIONS: VERY IMPORTANT TO READ AND REVIEW A. Your surgical incision has been closed with a cosmetic suture under the skin that will dissolve in about 6 weeks. In 14 days, you can use a pair of clean scissors and cut the suture that is left outside of the skin at the ends of your incision. 1. The small skin tapes can be removed 7 days after surgery if they have not fallen off by that point. 2. You may keep the wound open to air as much as possible to promote healing after post-op day number 5 unless told otherwise by your doctor. 3. If you think the wound looks like it is becoming infected (redness or worsening drainage) and/or you are experiencing fever, chill or worsening back pain and muscle spasms, contact the office so that we may evaluate you as soon as possible. B. Complications are uncommon, but please contact us if you have any signs or symptoms of: 1. wound infection (fever higher than 102.5 degrees F, redness, separation of wound, drainage, or increasing pain from the incision) 2. blood clots in legs (pain, swelling, redness and warmth in legs) 3. urinary tract infection (fever higher than 102.5 degrees F, burning upon urination or increased frequency of urination) 4. nerve problems (inability to walk on your toes or heels, numbness, loss of bowel or bladder control) 5. any other symptoms that concern you C. Please call the office at if you have any concerns or questions about your operation or recovery. D. No smoking! Smoking drastically decreases the chance of a solid fusion. E. Do not take any anti-inflammatory medications (Indocin, Advil, Motrin, Aspirin, Naprosyn, etc.) as these may inhibit the chance of a solid fusion. Tylenol is okay to take for pain. MANAGING PAIN AFTER SPINAL SURGERY 1. Narcotic medication is intended for short-term use and will be provided for surgical pain. Surgical pain usually lasts for a period of 4-6 weeks. Narcotic medication includes Percocet, Vicodin, Darvocet, Tylenol #3 or Lortab. 2. Longer-term pain is more appropriately treated with non-narcotic medication such as Tylenol ES. 3. Muscle spasm is not appropriately treated with narcotics. Muscle relaxers such as Soma, Flexeril or Skelaxin can be used along with Tylenol ES. 4. Remember that we all live with some "aches and pains". This is not unusual or uncommon after an injury or as we get older. a. Back pain is expected and may include muscle spasms for 4 to 6 weeks after surgery. The pain should gradually improve. If the pain worsens for no apparent reason, please contact the office. b. Intermittent leg pain may also be experienced and should not be concerned about unless it worsens for no apparent reason. If so, please contact the office. 5. We will provide appropriate medication within the normal guidelines of their prescribed use. We will also be very cautious and aware of potential abuse and extended duration of patients' medication needs. a. Pain medications are for your comfort and to assist with sleep and rest so that the tissue can heal. They are not provided in order to return to normal activity and should not be used through the day. To do so or worsening pain at night can result from ongoing tissue damage and development of tolerance to the prescribed medicine. 6. Please allow 2-3 days to process refills. Prescriptions will not be mailed but must be picked up at the office. FOLLOW UP VISIT: Keep your scheduled follow-up appointment. Any questions, please call the office at . 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
[2024-05-24 17:42] VITALS: BP 108/62
[2024-05-25] MEDS ORDERED: FERROUS SULFATE 325 MG TAB PO SCH (09:00)
== END 2024-05-24 17:50 | DRG 448 ==
LOC: ED 16:21 → 3N 20:35 → SUATTDRO 20:35 → 3N 23:15 → 2E 05-17 08:15

== ENCOUNTER 2024-07-17 11:05 | Inpatient (IN) ==
--- NOTE | 2024-07-17 11:38 | Emergency Department Note ---
Impression & Plan Acute left lumbar radiculopathy, Seroma of musculoskeletal structure after musculoskeletal system procedure ED Provider Note Name: PAXTON CHI Age: 79 Sex: Male Arrives Via: Walk-In Informant: Patient ED Provider: Khurram Carrizales MD Chief Complaint: Back pain Impression: As per impressions above Medical Decision Makin-year-old gentleman several weeks post lumbar surgery arrives for evaluation of severe left leg pain and some mild low back pain. No loss of bowel or bladder control. Sensation intact though severe pain with any movement. He was sent over from the clinic with plan for hospitalization and surgery. Laboratory workup is fortunately reviewed sugaring. He has no evidence of infectious etiology. He is given IV pain medication with vast improvement in his pain and agreeable to hospitalization. Patient does not have any abdominal pain or tenderness palpation or masses. I do not feel further imaging is necessary at this time given the MRI he just had a few days ago showing seroma which is consistent with this. Triage/Nursing Notes reviewed by Me Differential:Musculoskeletal, disc herniation, fracture, metastatic disease, cord compression, discitis, sciatica, cauda equina, infection, aortic disease, renal colic, gastrointestinal, as well as other pathologies. Vital Signs: reviewed and remarkable for no significant abnormalities Interventions: Dilaudid IV, normal saline bolus IV Labs:ED labs Reviewed by me and remarkable for no significant abnormalities Consults:Discussed with hospitalist who agreed further management Plan: Disposition:Hospitalization. Condition: Good History of Present Illness: 79-year-old gentleman arrives for evaluation of left leg pain. Patient with lumbar surgery a few weeks ago. Since then rapidly worsening left leg pain and now right leg pain. Associated with minimal back pain. Denies any fevers, chills, abdominal pain, nausea, vomiting, urinary/bowel symptoms or other concerning signs or symptoms. Does note some mildly loose stools but that has been ongoing. Patient was seen by his orthopedic surgeon team this morning and advised to come to the ER based on concerning story and his MRI. MRI did show a large seroma pushing on the thecal sac. Patient has been taking all his medications as prescribed. He is on aspirin and Plavix. Has a history of PE denies any leg swelling or calf pain or shortness of breath. No falls, trauma, injuries. Using Tylenol and tramadol at home with minimal improvement. Past Medical History:See Below Home Medications:See Below Allergies:See Below Vitals:Blood Pressure: 123/59, Pulse 73, RR 20, T 36.4C, O2 92% on RA Physical Exam: GENERAL: Patient is uncomfortable appearing and in moderate distress. RESPIRATORY: No dyspnea. Clear to auscultation and equal bilaterally. CARDIOVASCULAR: Regular rate and rhythm.No murmur appreciated. GASTROINTESTINAL: Abdomen soft, non-tender, no peritonitis. EXTREMITIES: Normal motion all extremities, no cyanosis, no edema. NEUROLOGIC: Alert and oriented. No focal neurologic deficits appreciated SKIN: No rash, no jaundice, no diaphoresis. PSYCH: Appropriate GCS: 15 ED Course: Times/Reassessments: Patient vastly improved with IV narcotics agreeable to hospitalization Khurram Carrizales MD Past Med/Surg History Problem List (Updated 07/18/24 @ 08:03 by Khurram Carrizales MD) Seroma of musculoskeletal structure after musculoskeletal system procedure (Acute) Acute left lumbar radiculopathy (Acute) Cauda equina syndrome Urinary hesitancy Fusion of spine, lumbar region Acute blood loss anemia Gastric ulcer Myelodysplasia (myelodysplastic syndrome) Actinic keratoses History of pulmonary embolism Hip pain, right Heme positive stool Anemia (Acute) Cellulitis of leg, right (Acute) BPH w urinary obs/LUTS Ankle edema Anemia Neuropathic pain Peripheral arterial disease Lumbosacral radiculopathy at S1 Right foot pain Encounter for pre-operative examination Hyperproteinemia Olecranon bursitis, right elbow resolved Lightheadedness resolved Colon cancer screening Changing skin lesion removed from hand Scattered rhonchi of right lung Chronic low back pain Chronic anemia Diarrhea ongoing Medicare annual wellness visit, subsequent Olecranon bursitis, left elbow resolved Folate deficiency Vitamin B 12 deficiency Nonallergic rhinitis Allergic rhinitis Cervicalgia Paraproteinemia Chronic low back pain Proteinuria Nocturnal enuresis 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 Biventricular cardiac pacemaker in situ Stage 3b chronic kidney disease Chronic anemia Syncope and collapse happened once in 2020 Dementia Dyspnea on exertion Cardiomyopathy CAD, multiple vessel S/P coronary artery stent placement ~2001, SOB w/chest tightness, [facility], x2 stents; 2002, SOB w/chest tightness, [place], x2; 2003, SOB w/chest tightness, [place], x1 stent; 2004, SOB w/chest tightness, [place], x1 stent; 2009, SOB w/chest tightness, [place], x2 stents; 2012, SOB w/chest tightness, [facility], x1 stent; 2014, SOB w/chest tightness, x2 stents, [place]; 2016, SOB w/chest tightness, [place], x1 stent; 2018, SOB w/chest tightness, x2 stents; 2020, SOB w/chest tightness, [facility], x4 stents; f/u dr. segura Squamous cell skin cancer Aneurysm of ascending aorta (Acute) monitoring currently; f/u camrelo betancur Asthma with COPD (Acute) daily inh and prn inhaler Carotid artery stenosis (Acute) Generalized anxiety disorder (Acute) History of TIA (transient ischemic attack) (Acute) Hyperlipidemia (Acute) Benign essential hypertension (Acute) Myelodysplastic syndrome (Acute) PTSD (post-traumatic stress disorder) (Acute) S/P aortic valve replacement with bioprosthetic valve (Acute) S/P laparoscopic cholecystectomy (Acute) Depression BPH (benign prostatic hyperplasia) COPD (chronic obstructive pulmonary disease) CKD (chronic kidney disease) (Acute) unsure of stage Pacemaker 2011, Placed after AVR due to complete heart block, [facility]; [facility] Medical History TAYLOR (acute kidney injury) Lumbar spinal stenosis Left lumbar radiculopathy Orthostatic hypotension Hyperkalemia Acute alteration in mental status Foreign body of right heel Syncope and collapse happened once in 2020 Hx of squamous cell carcinoma Pulmonary embolism per "he never had one, thinks they ruled this out at one point in time" PTSD (post-traumatic stress disorder) PAD (peripheral artery disease) Orthostatic hypotension happens sometimes Hip pain, left ongoing, radiates down to foot Lumbosacral radiculopathy at S1 Hyperlipidemia Generalized anxiety disorder Diabetes mellitus, type 2 per "not well controlled" Depression CKD (chronic kidney disease) unsure of stage Chronic low back pain Chronic anemia Cervicalgia hx, no current issues Neuropathy Carotid artery stenosis Cardiomyopathy Biventricular cardiac pacemaker in situ Asthma with COPD daily and prn inh Ascending aortic aneurysm monitoring currently; f/u carmelo betancur Hx-TIA (transient ischemic attack) 2019, slurred speech and confusion[facility]no [facility] symtoms History of COVID-19 2019, tested thru PCP, not hosp; mild symptoms-diarrhea, cold symptoms>resolved Chronic bronchitis Leukocytosis hx CARTER (dyspnea on exertion) chronic Bicuspid aortic valve replaced with bioprosthetic valve Dementia "mild" BPH (benign prostatic hyperplasia) HTN (hypertension), benign CAD (coronary artery disease) Myocardial infarction 2011, SOB w/chest tightness and pain into shoulder and jaw, [facility], had cardiac cath w/2 stents Surgical History Hx of squamous cell carcinoma excision hand S/P cardiac pacemaker procedure History of back surgery x2, 05/10/2020 Grade 2 view with Mac 3 blade; both lower back History of tonsillectomy History of repair of rotator cuff right S/P right knee surgery H/O endoscopic retrograde cholangiopancreatography History of colonoscopy Hx of cholecystectomy H/O cardiac catheterization ~2001, SOB w/chest tightness, [facility], x2 stents; 2002, SOB w/chest tightness, [place], x2; 2003, SOB w/chest tightness, [place], x1 stent; 2004, SOB w/chest tightness, [place], x1 stent; 2009, SOB w/chest tightness, [place], x2 stents; 2011, SOB w/chest tightness, [place], x1 stent; 2013, SOB w/chest tightness, x2 stents, [place]; 2015, SOB w/chest tightness, [place], x1 stent; 2017, SOB w/chest tightness, x2 stents; 2019, SOB w/chest tightness, [facility], x4 stents; f/u S/P aortic valve replacement 2011, [place] [facility]; f/u dr. segura Family History Sister Anxiety Brother Alcohol abuse Father Cardiac disorder Myocardial infarction Mother Depression Kidney disease Lung disease Stroke Other Family history non-contributory Denies family history of Ovarian cancer Prostate cancer Breast cancer Colorectal cancer Social History Smoking Status: Former smoker Tobacco Type: Smokeless Tobacco (Dip or Chew) Age Started Using Tobacco: 16; Age Quit Using Tobacco: 64; packs per day: 2; Cigarettes Per Day: maybe 5-10 cigarettes per month; Second Hand Exposure: No; Do You Dip or Chew Tobacco: Yes; Hx Alcohol Use: Yes Alcohol type: beer Hx Substance Use: No Preferred Language: Korean Communication Ability: Effective Visual Impairment: Limited Hearing Ability: Use of Hearing Aid [employer] Required: No Beliefs That Will Affect Care: None marital status: Current Living Situation: Spouse Current Living Situation Comment: 1 story home, 2 steps to enter home Other Information That Helps Us Care for You: No Feels Safe at Home: Yes Safety Concerns: Feels Safe At This Time Childhood Exposure to Second-Hand Smoke: Yes Seatbelt Use: always Sunscreen Use: Yes Assistive Devices: Denture - Upper, Denture - Lower, Glasses, Hearing Aid - Bilateral and Walker Allergies Allergies Allergy/AdvReac Type Severity Reaction Status Date / Time bee venom protein (honey bee) Allergy Severe SWELLING Verified 06/07/24 11:35 Sulfa (Sulfonamide Allergy Intermediate "SULFA": Verified 06/07/24 11:35 Antibiotics) RASH Penicillins Allergy Unknown UNKNOWN Verified 06/07/24 11:35 lisinopril Allergy unknown Verified 06/07/24 11:35 reaction codeine AdvReac Intermediate HALLUCINATI Verified 06/07/24 11:35 NG meloxicam AdvReac renal Verified 06/07/24 11:35 failure Home Meds Home Medications Medication Instructions Recorded Confirmed epinephrine 0.3 mg/0.3 mL 0.3 mg IM Q3H PRN Allergy Symptoms 10/21/18 07/17/24 injection, auto-injector (EpiPen) finasteride 5 mg tablet 5 mg PO QAM 10/21/18 07/17/24 atorvastatin 40 mg tablet (Lipitor) 40 mg PO HS 10/22/18 07/17/24 donepezil 10 mg tablet 10 mg PO QAM 10/22/18 07/17/24 lamotrigine 200 mg tablet 200 mg PO HS 10/22/18 07/17/24 buspirone 30 mg tablet 30 mg PO TID 07/21/20 07/17/24 clopidogrel 75 mg tablet 75 mg PO HS 08/16/23 07/17/24 albuterol sulfate 90 mcg/actuation 2 puff inhalation Q4H PRN 03/21/24 07/17/24 aerosol inhaler Shortness Of Breath Or Wheezing alfuzosin 10 mg tablet,extended 10 mg PO HS 03/21/24 07/17/24 release 24 hr budesonide 160 mcg-glycopyr 9 2 inh inhalation QAM 03/21/24 07/17/24 mcg-formot 4.8 mcg/actuation HFA inhaler (Breztri Aerosphere) carvedilol 3.125 mg tablet 3.125 mg PO BID 03/21/24 07/17/24 dorzolamide (PF) 2 % (PF) eye drops 1 drp ophthalmic (eye) HS 04/05/24 07/17/24 timolol maleate (PF) 0.5 % eye 1 drp ophthalmic (eye) HS 04/05/24 07/17/24 drops in a dropperette acetaminophen 500 mg tablet 500 mg PO Q6H 06/02/24 07/17/24 (Acetaminophen Extra Strength) ondansetron HCl 4 mg tablet 4 mg PO BID PRN nausea and vomiting 06/02/24 07/17/24 insulin glargine 100 unit/mL (3 See Rx Instructions subcut BID 06/07/24 07/17/24 mL) subcutaneous pen (Lantus Solostar U-100 Insulin) aspirin 81 mg tablet,delayed 81 mg PO DAILY 07/14/24 07/17/24 release glimepiride 1 mg tablet 2 mg PO BID 07/14/24 07/17/24 Previous Rx's Medication Instructions Recorded nitroglycerin 0.4 mg sublingual 0.4 mg sublingual Q5M PRN Chest 08/21/20 tablet (Nitrostat) Pain #30 tabs memantine 5 mg tablet 5 mg PO BID #180 tabs 11/05/21 cetirizine 10 mg tablet 10 mg PO DAILY PRN allergy 11/18/21 symptoms #30 tabs mupirocin 2 % topical ointment 1 applic topical TID #15 grams 03/23/24 pantoprazole 40 mg tablet,delayed 40 mg PO BID #60 tabs 04/16/24 release duloxetine 60 mg capsule,delayed 60 mg PO BID #180 caps 04/23/24 release latanoprost 0.005 % eye drops 1 drp ophthalmic (eye) QAM #0 mL 05/24/24 gabapentin 800 mg tablet 800 mg PO TID #270 tabs 11/20/24 tramadol 50 mg tablet 50 mg PO QID PRN pain #120 tabs 07/13/24 Results & Data (ED) Vital Signs Vital Signs - 24 hr 07/17/24 11:07 07/17/24 11:23 07/17/24 13:11 Temperature 36.4 C L 36.8 C Temperature Source Temporal Artery Scan Oral Pulse Rate 71 73 Pulse Rate [Apical] 73 Pulse Rhythm Regular Pulse Strength Normal Pulse Strength [Apical] Normal Respiratory Rate 20 19 Respiratory Effort / Characteristics Non-Labored Spontaneous Non-Labored Spontaneous Respiratory Depth Normal Normal Respiratory Pattern Regular Blood Pressure 123/59 L Blood Pressure [Left Arm] 115/76 Blood Pressure Mean 80 Blood Pressure Mean [Left Arm] 89 Pulse Oximetry 92 95 Oxygen Delivery Method Room Air Room Air Sepsis Recent Fever Within 48 Hours No Sepsis New/Unexplained Change in Mental Status N/A Sepsis Action Taken by Nursing No Action Required Laboratory Data 07/17/24 11:39 07/17/24 11:39 Lab Results 07/17/24 Range/Units 11:39 WBC 10.33 (4.8-10.8) K/ul RBC 3.09 L (4.70-6.10) M/uL Hgb 9.2 L (14.0-18.0) g/dl Hct 28.8 L (42.0-52.0) % MCV 93.2 (80.0-100.0) fL MCH 29.8 (25.0-34.0) pg MCHC 31.9 L (32.0-36.0) g/dL RDW Std Deviation 73.2 H (36.4-46.3) fL RDW Coeff of Linda 21.5 H (11.5-14.5) % Plt Count 253 (130-400) K/uL MPV 10.8 (9.4-12.4) fL Immature Gran % (Auto) 0.3 % Neut % (Auto) 72.2 % Lymph % (Auto) 16.9 % George % (Auto) 8.9 % Eos % (Auto) 1.1 % Baso % (Auto) 0.6 % Neut # (Auto) 7.46 H (1.40-6.50) K/uL Lymph # (Auto) 1.75 (1.20-3.40) K/uL George # (Auto) 0.92 H (0.11-0.59) K/uL Eos # (Auto) 0.11 (0.00-0.50) K/uL Baso # (Auto) 0.06 (0.00-0.20) K/uL Immature Gran # (Auto) 0.03 (0.01-0.20) K/uL Absolute Nucleated RBC 0.02 (0.00-0.12) K/uL Nucleated RBC % (auto) 0.2 % Anisocytosis Present PT 11.0 (9.0-12.0) Seconds INR 1.0 (0.9-1.1) Sodium 140 (136-145) mmol/L Potassium 4.9 (3.5-5.1) mmol/L Chloride 107 (98-107) mmol/L Carbon Dioxide 27 (21-32) mmol/L Anion Gap 6 (3-11) BUN 31 H (6-23) mg/dl Creatinine 1.53 H (0.6-1.4) mg/dl Est Cr Clr Drug Dosing 39.8 ml/min eGFR 46.25 BUN/Creatinine Ratio 20.3 H (10-20) Glucose 179 H (70-99(Fasting)) mg/dl Calcium 8.9 (8.6-10.3) mg/dl Magnesium 1.7 (1.7-2.4) mg/dl Administered Medications Atorvastatin Calcium (Atorvastatin 40 Mg Tab) 40 mg PO HS [facility] Stop: 08/16/24 20:59 Last Admin: 07/17/24 20:06 Dose: 40 mg Documented By: ARTIS Buspirone HCl (Buspirone 15 Mg Tab) 30 mg PO TID [facility] Stop: 08/16/24 18:31 Last Admin: 07/17/24 20:06 Dose: 30 mg Documented By: Admin: 07/17/24 19:24 Dose: 30 mg Documented By: ARTIS Carvedilol (Carvedilol 3.125 Mg Tab) 3.125 mg PO BID [facility] Stop: 08/16/24 20:59 Last Admin: 07/17/24 20:12 Dose: 3.125 mg Documented By: ARTIS Dorzolamide HCl (Dorzolamide Hcl 2% Oph Soln 10 Ml Btl) 1 drops OP HS [facility] Stop: 08/16/24 20:59 Last Admin: 07/17/24 20:13 Dose: 1 drops Documented By: ARTIS Duloxetine HCl (Duloxetine Hcl 60 Mg Cap) 60 mg PO BID [facility] Stop: 08/16/24 20:59 Last Admin: 07/17/24 20:07 Dose: 60 mg Documented By: ARTIS Gabapentin (Gabapentin 300 Mg Cap) 300 mg PO TID [facility] Stop: 08/16/24 20:59 Last Admin: 07/17/24 20:08 Dose: 300 mg Documented By: ARTIS Hydromorphone HCl (Hydromorphone Inj 0.5 Mg/0.5 Ml Syr) 0.5 mg IV Q3H PRN PRN Reason: Pain (6,7,8,9,10) Stop: 07/31/24 18:31 Last Admin: 07/18/24 01:43 Dose: 0.5 mg Documented By: ARTIS Insulin Aspart (Insulin Aspart Per Unit Charge) 0 units SC [facility] Stop: 08/16/24 18:31 Last Admin: 07/17/24 20:43 Dose: 5 units Documented By: ARTIS Co-signed By: GENET Admin: 07/17/24 19:32 Dose: Not Given Documented By: ARTIS Lamotrigine (Lamotrigine 100 Mg Tab) 200 mg PO [facility]; Protocol Stop: 08/16/24 20:59 Last Admin: 07/17/24 20:08 Dose: 200 mg Documented By: ARTIS Memantine (Memantine Hcl 5 Mg Tab) 5 mg PO BID [facility] Stop: 08/16/24 20:59 Last Admin: 07/17/24 20:08 Dose: 5 mg Documented By: ARTIS Pantoprazole Sodium (Pantoprazole 40 Mg Tab) 40 mg PO BID [facility] Stop: 08/16/24 20:59 Last Admin: 07/17/24 20:09 Dose: 40 mg Documented By: ARTIS Timolol Maleate (Timolol Maleate 0.5% Op Soln 5 Ml Btl) 1 drops OP HS [facility] Stop: 08/16/24 20:59 Last Admin: 07/17/24 20:13 Dose: 1 drops Documented By: ARTIS Discontinued Medications Hydromorphone HCl (Hydromorphone Inj 0.5 Mg/0.5 Ml Syr) 0.5 mg IV NOW STA Stop: 07/17/24 11:36 Last Admin: 07/17/24 11:53 Dose: 0.5 mg Documented By: RADHA Hydromorphone HCl (Hydromorphone Inj 0.5 Mg/0.5 Ml Syr) 0.5 mg IV Q3H PRN PRN Reason: Pain (6,7,8,9,10) Stop: 07/31/24 17:37 Last Admin: 07/17/24 17:46 Dose: 0.5 mg Documented By: RADHA Insulin Glargine (Lantus Per Unit Charge) 10 units SQ NOW STA Stop: 07/17/24 21:16 Last Admin: 07/17/24 21:33 Dose: 10 units Documented By: ARTIS Co-signed By: KHRIS Discharge Plan Visit Data Chief Complaint: Back Injury/Pain Stated Complaint: SEVERE PAIN IN BACK ED Provider: Khurram Carrizales Discharge Problem: Acute left lumbar radiculopathy, Seroma of musculoskeletal structure after musculoskeletal system procedure Patient Disposition: Admitted As Inpatient Discharge Instructions Interventions: ED Discharge Assessment Last Done: 07/17/24 17:56
[2024-07-17] MEDS: HYDROmorphone INJ 0.5 MG/0.5 ML SYR IV STA (11:53)
[2024-07-17 12:03] LABS: Basophils # (auto) 0.06 K/uL (0.00-0.20); Basophils % (auto) 0.6 %; Eosinophils # (auto) 0.11 K/uL (0.00-0.50); Eosinophils % (auto) 1.1 %; Hematocrit (blood only) 28.8 % (42.0-52.0); Hemoglobin 9.2 g/dl (14.0-18.0); Immature Granulocytes # (auto) 0.03 K/uL (0.01-0.20); Immature Granulocytes % (auto) 0.3 %; Lymphocytes # (auto) 1.75 K/uL (1.20-3.40); Lymphocytes % (auto) 16.9 %; Mean Corpuscular Hemoglobin 29.8 pg (25.0-34.0); Mean Corpuscular Hgb Conc 31.9 g/dL (32.0-36.0); Mean Corpuscular Volume 93.2 fL (80.0-100.0); Mean Platelet Volume 10.8 fL (9.4-12.4); Monocytes # (auto) 0.92 K/uL (0.11-0.59); Monocytes % (auto) 8.9 %; Neutrophils # (auto) 7.46 K/uL (1.40-6.50); Neutrophils % (auto) 72.2 %; Nucleated RBC # (auto) 0.02 K/uL (0.00-0.12); Nucleated RBC % (auto) 0.2 %; Platelet Count 253 K/uL (130-400); RDW Coefficient of Variation 21.5 % (11.5-14.5); RDW Standard Deviation 73.2 fL (36.4-46.3); Red Blood Count 3.09 M/uL (4.70-6.10); White Blood Count 10.33 K/ul (4.8-10.8)
[2024-07-17 12:24] LABS: BUN Creatinine Ratio 20.3 (10-20); Calcium 8.9 mg/dl (8.6-10.3); Creatinine Clr Calc Pharmacy 39.8 ml/min; Magnesium 1.7 mg/dl (1.7-2.4); Potassium 4.9 mmol/L (3.5-5.1)
[2024-07-17 12:29] LABS: Anisocytosis Present
--- NOTE | 2024-07-17 13:02 | History & Physical Report ---
Date of Service July 17, 2024 Assessment & Plan (1) Cauda equina syndrome: Plan: History of lumbar radiculopathy, with surgical intervention 05/[address] [place] [address] Shaheed Brown; legs are "deteriorating" per patient, worsening weakness; no complete bowel or bladder incontinence but does state that it has become harder to control bowel and bladder - Admit - Lumbar spine MRI on 07/13- postoperative fluid collection posterior to L5 vertebral body approximately 5 cm compressing posterior thecal sac resulting in severe central canal stenosis L5-S1 - N.p.o. midnight - Dilaudid 0.25mg + 0.5mg prn pain - as ordered - Scheduled for evacuation of seroma on 07/18 - Ortho surgery consulted Appreciate ortho surgery input and recs (2) Myelodysplasia (myelodysplastic syndrome): Plan: Anemia since 2019; records indicating MDS - CBC RBC 3.09, H&H 9.2/28.8, MCHC 31.9, RDW 73.2; around baseline - Has required blood transfusions following surgical interventions previously - CBC a.m. 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: Plan: H/o DMT2 - At home regimen Glimepiride 2mg BID, Lantus 10U daily- HOLD po medications while inpatient; Gabapentin 800 TID for neuropathy - Most recent A1C 7.8% (07/14/2024) - SSI with target BSG range 110-140mg/dL, CF 30, carb ratio 10 - T2DM diet - BSG ACHS while eating, q6h while npo - Adjust regimen as needed - Pharm glycemic consult placed (4) Asthma with COPD: Plan: Stable, per patient; no recent exacerbations, no current symptoms - Bronchodilators as needed (5) CAD (coronary artery disease): Plan: Cath 01/15/2021 w/o stent placement, multiple stents placed; PCI most recently in 2019 - Aspirin, Plavix, atorvastatin, coreg - No ischemic symptoms currently - Echo 05/17/2024- ventricular systolic function normal, no regional wall normalities, moderate LVH, EF 60 to 65%, prosthetic aortic valve seated well, gradient normal for prosthetic aortic valve, mild MR - Pacer upgraded to BiV pacer 2020; interrogation 06/2024 normal - Bioprosthetic AV replacement (6) Stage 3b chronic kidney disease: Plan: H/o CKD stage IIIb, baseline Cr 1.2-1.59 - Cr 1.53 on admission, no evidence TAYLOR currently - Renally dose medications - BMP am Plan HLD- Atorvastatin Anxiety- Buspirone GERD- pantoprazole Dementia- Namenda, Aricept PTSD- [facility], Lamictal, duloxetine BPH- Finasteride, alfuzosin (? has not started this yet; holding for now); bladder scan prn Dispo: Admit Diet: T2DM + heart healthy; NPO midnight- OR 07/18 VTE Prophylaxis- HOLD, will restart on following surgical intervention - Will hold Plavix for now, surgery may determine if need to hold ASA Code: Full Admission and Anticipated Discharge Date Admission Date: 07/17/2024 History of Present Illness Chief Complaint: Back pain Primary Care Provider: Leandro Rodrigues MD 79-year-old male presenting 2 months postop from orthopedic surgery by Dr. Brown, sent to ED for large seroma; complaining of leg pain and trouble walking. ED course: CBC-RBC 3.09, H&H 9.2/28.8, MCH 31.9, RDW 73.2, neutrophil predominance without leukocytosis-7.46; PT/INR WNL; CMP creatinine 1.53, BUN 31, BUN/creatinine ratio 20.3, glucose 179; calcium 8.9; magnesium 1.7; lumbar spine MRI from 07/13/2024 revealing postop changes from posterior decompression interbody annette and screw fusion extending from L2-S1, interval removal of L3 pedicle screws with L4-L5 and L5-S1 laminectomy, postoperative fluid collection posterior to the L5 vertebral body approximately 5 cm, compressing posterior thecal sac sudden severe central canal stenosis at L5-S1, moderate narrowing paravertebral edema L5-S1 likely degenerative/reactive, additional discogenic degeneration generally unchanged. Provided with Dilaudid in ED. Patient is 79-year-old male PMHx CKD, COPD, BPH, myelodysplastic syndrome, HTN, HLD, T2DM, PAD, and recent surgical intervention on 05/18/24 to the spine performed by Dr. Brown for underlying diagnosis of lumbar radiculopathy. Presenting for worsening symptoms in his bilateral legs since surgery in May. States that ever since his surgery, he has felt that his legs are "deteriorating" and that he is losing his muscle in his legs. Did go to 5 days of inpatient physical therapy, but left because he was only receiving 0.5 hours of therapy per day. Notes that his legs are just continuing to weaken but that his pain is overall well-controlled. Denies complete bowel or bladder incontinence but does admit that it is sometimes difficult to control his bowel. Did go PCP 07/14 after MRI completed 07/13 which revealed postoperative fluid collection posterior to the L5 vertebral body measuring 5 cm compressing the posterior thecal sac resulting in severe central canal stenosis of L5-S1. Denie s chest pain, shortness of breath, palpitations, abdominal pain, N/V/D/C, worsening numbness/tingling, or syncopal episodes. Took all a.m. medications. Please see Dr. Nolan's attestation for adjustments/additions to treatment plan. Allergies Allergy/AdvReac Type Severity Reaction Status Date / Time bee venom protein (honey bee) Allergy Severe SWELLING Verified 06/07/24 11:35 Sulfa (Sulfonamide Allergy Intermediate "SULFA": Verified 06/07/24 11:35 Antibiotics) RASH Penicillins Allergy Unknown UNKNOWN Verified 06/07/24 11:35 lisinopril Allergy unknown Verified 06/07/24 11:35 reaction codeine AdvReac Intermediate HALLUCINATI Verified 06/07/24 11:35 NG meloxicam AdvReac renal Verified 06/07/24 11:35 failure Home Medications Medication Instructions Recorded Confirmed Type epinephrine 0.3 mg/0.3 mL 0.3 mg IM Q3H PRN Allergy Symptoms 10/21/18 07/17/24 History injection, auto-injector (EpiPen) finasteride 5 mg tablet 5 mg PO QAM 10/21/18 07/17/24 History atorvastatin 40 mg tablet (Lipitor) 40 mg PO HS 10/22/18 07/17/24 History donepezil 10 mg tablet 10 mg PO QAM 10/22/18 07/17/24 History lamotrigine 200 mg tablet 200 mg PO HS 10/22/18 07/17/24 History buspirone 30 mg tablet 30 mg PO TID 07/21/20 07/17/24 History nitroglycerin 0.4 mg sublingual 0.4 mg sublingual Q5M PRN Chest 08/21/20 07/17/24 Rx tablet (Nitrostat) Pain #30 tabs memantine 5 mg tablet 5 mg PO BID #180 tabs 11/05/21 07/17/24 Rx cetirizine 10 mg tablet 10 mg PO DAILY PRN allergy 11/18/21 07/17/24 Rx symptoms #30 tabs clopidogrel 75 mg tablet 75 mg PO HS 08/16/23 07/17/24 History albuterol sulfate 90 mcg/actuation 2 puff inhalation Q4H PRN 03/21/24 07/17/24 History aerosol inhaler Shortness Of Breath Or Wheezing alfuzosin 10 mg tablet,extended 10 mg PO HS 03/21/24 07/17/24 History release 24 hr budesonide 160 mcg-glycopyr 9 2 inh inhalation QAM 03/21/24 07/17/24 History mcg-formot 4.8 mcg/actuation HFA inhaler (Breztri Aerosphere) carvedilol 3.125 mg tablet 3.125 mg PO BID 03/21/24 07/17/24 History mupirocin 2 % topical ointment 1 applic topical TID #15 grams 03/23/24 07/17/24 Rx dorzolamide (PF) 2 % (PF) eye drops 1 drp ophthalmic (eye) HS 04/05/24 07/17/24 History timolol maleate (PF) 0.5 % eye 1 drp ophthalmic (eye) HS 04/05/24 07/17/24 History drops in a dropperette pantoprazole 40 mg tablet,delayed 40 mg PO BID #60 tabs 04/16/24 07/17/24 Rx release duloxetine 60 mg capsule,delayed 60 mg PO BID #180 caps 04/23/24 07/17/24 Rx release latanoprost 0.005 % eye drops 1 drp ophthalmic (eye) QAM #0 mL 05/24/24 07/17/24 Rx acetaminophen 500 mg tablet 500 mg PO Q6H 06/02/24 07/17/24 History (Acetaminophen Extra Strength) ondansetron HCl 4 mg tablet 4 mg PO BID PRN nausea and vomiting 06/02/24 07/17/24 History insulin glargine 100 unit/mL (3 See Rx Instructions subcut BID 06/07/24 07/17/24 History mL) subcutaneous pen (Lantus Solostar U-100 Insulin) gabapentin 800 mg tablet 800 mg PO TID #270 tabs 06/28/24 07/17/24 Rx tramadol 50 mg tablet 50 mg PO QID PRN pain #120 tabs 07/13/24 07/17/24 Rx aspirin 81 mg tablet,delayed 81 mg PO DAILY 07/14/24 07/17/24 History release glimepiride 1 mg tablet 2 mg PO BID 07/14/24 07/17/24 History Past Med/Surg History Problem List Cauda equina syndrome Urinary hesitancy Fusion of spine, lumbar region Acute blood loss anemia Gastric ulcer Myelodysplasia (myelodysplastic syndrome) Actinic keratoses History of pulmonary embolism Hip pain, right Heme positive stool Anemia (Acute) Cellulitis of leg, right (Acute) BPH w urinary obs/LUTS Ankle edema Anemia Neuropathic pain Peripheral arterial disease Lumbosacral radiculopathy at S1 Right foot pain Encounter for pre-operative examination Hyperproteinemia Olecranon bursitis, right elbow resolved Lightheadedness resolved Colon cancer screening Changing skin lesion removed from hand Scattered rhonchi of right lung Chronic low back pain Chronic anemia Diarrhea ongoing Medicare annual wellness visit, subsequent Olecranon bursitis, left elbow resolved Folate deficiency Vitamin B 12 deficiency Nonallergic rhinitis Allergic rhinitis Cervicalgia Paraproteinemia Chronic low back pain Proteinuria Nocturnal enuresis 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 Biventricular cardiac pacemaker in situ Stage 3b chronic kidney disease Chronic anemia Syncope and collapse happened once in 2020 Dementia Dyspnea on exertion Cardiomyopathy CAD, multiple vessel S/P coronary artery stent placement ~2001, SOB w/chest tightness, [facility], x2 stents; 2002, SOB w/chest tightness, [place], x2; 2004, SOB w/chest tightness, [place], x1 stent; 2004, SOB w/chest tightness, [place], x1 stent; 2009, SOB w/chest tightness, [place], x2 stents; 2011, SOB w/chest tightness, [place] [facility], x1 stent; 2013, SOB w/chest tightness, x2 stents, [place]; 2016, SOB w/chest tightness, [place], x1 stent; 2017, SOB w/chest tightness, x2 stents; 2019, SOB w/chest tightness, [facility], x4 stents; f/u dr. segura Squamous cell skin cancer Aneurysm of ascending aorta (Acute) monitoring currently; f/u carmelo betancur Asthma with COPD (Acute) daily inh and prn inhaler Carotid artery stenosis (Acute) Generalized anxiety disorder (Acute) History of TIA (transient ischemic attack) (Acute) Hyperlipidemia (Acute) Benign essential hypertension (Acute) Myelodysplastic syndrome (Acute) PTSD (post-traumatic stress disorder) (Acute) S/P aortic valve replacement with bioprosthetic valve (Acute) S/P laparoscopic cholecystectomy (Acute) Depression BPH (benign prostatic hyperplasia) COPD (chronic obstructive pulmonary disease) CKD (chronic kidney disease) (Acute) unsure of stage Pacemaker 2011, Placed after AVR due to complete heart block, [facility]; its learning Medical History TAYLOR (acute kidney injury) Lumbar spinal stenosis Left lumbar radiculopathy Orthostatic hypotension Hyperkalemia Acute alteration in mental status Foreign body of right heel Syncope and collapse happened once in 2020 Hx of squamous cell carcinoma Pulmonary embolism per "he never had one, thinks they ruled this out at one point in time" PTSD (post-traumatic stress disorder) PAD (peripheral artery disease) Orthostatic hypotension happens sometimes Hip pain, left ongoing, radiates down to foot Lumbosacral radiculopathy at S1 Hyperlipidemia Generalized anxiety disorder Diabetes mellitus, type 2 per "not well controlled" Depression CKD (chronic kidney disease) unsure of stage Chronic low back pain Chronic anemia Cervicalgia hx, no current issues Neuropathy Carotid artery stenosis Cardiomyopathy Biventricular cardiac pacemaker in situ Asthma with COPD daily and prn inh Ascending aortic aneurysm monitoring currently; f/u carmelo betancur Hx-TIA (transient ischemic attack) 2019, slurred speech and confusion, brought to [facility]>no residual symtoms History of COVID-19 2019, tested thru PCP, not hosp; mild symptoms-diarrhea, cold symptoms>resolved Chronic bronchitis Leukocytosis hx CARTER (dyspnea on exertion) chronic Bicuspid aortic valve replaced with bioprosthetic valve Dementia "mild" BPH (benign prostatic hyperplasia) HTN (hypertension), benign CAD (coronary artery disease) Myocardial infarction 2011, SOB w/chest tightness and pain into shoulder and jaw, phan general, had cardiac cath w/2 stents Surgical History Hx of squamous cell carcinoma excision hand S/P cardiac pacemaker procedure History of back surgery x2, 05/10/2020 Grade 2 view with Mac 3 blade; both lower back History of tonsillectomy History of repair of rotator cuff right S/P right knee surgery H/O endoscopic retrograde cholangiopancreatography History of colonoscopy Hx of cholecystectomy H/O cardiac catheterization ~2001, SOB w/chest tightness, [facility], x2 stents; 2002, SOB w/chest tightness, [place], x2; 2003, SOB w/chest tightness, [place], x1 stent; 2004, SOB w/chest tightness, [place], x1 stent; 2009, SOB w/chest tightness, [place], x2 stents; 2011, SOB w/chest tightness, [place], x1 stent; 2013, SOB w/chest tightness, x2 stents, [place]; 2015, SOB w/chest tightness, [place], x1 stent; 2017, SOB w/chest tightness, x2 stents; 2019, SOB w/chest tightness, [facility], x4 stents; f/u S/P aortic valve replacement 2011, [place] [facility]; f/u dr. segura Family History Sister Anxiety Brother Alcohol abuse Father Cardiac disorder Myocardial infarction Mother Depression Kidney disease Lung disease Stroke Other Family history non-contributory Denies family history of Ovarian cancer Prostate cancer Breast cancer Colorectal cancer Social History Smoking Status: Current some day smoker Tobacco Type: Smokeless Tobacco (Dip or Chew) Age Started Using Tobacco: 16; Age Quit Using Tobacco: 64; packs per day: 2; Cigarettes Per Day: maybe 5-10 cigarettes per month; Second Hand Exposure: No; Do You Dip or Chew Tobacco: Yes; Hx Alcohol Use: Yes Alcohol type: beer and hard liquor Hx Substance Use: No Preferred Language: Ivorian Communication Ability: Effective Visual Impairment: Limited Hearing Ability: Use of Hearing Aid Manager Fire Required: No Beliefs That Will Affect Care: None marital status: Current Living Situation: Spouse Current Living Situation Comment: House Feels Safe at Home: Yes Childhood Exposure to Second-Hand Smoke: Yes Seatbelt Use: always Sunscreen Use: Yes Assistive Devices: Cane, Walker and Wheelchair Review of Systems Review of Systems: All systems reviewed & are unremarkable except as noted in Subjective Physical Exam Physical Exam: General: No acute distress Skin: Warm and dry Head: Normocephalic, atraumatic Eyes: PERRL, conjunctivae clear, sclera non-icteric; wears glasses ENT: External ear and ear canal without swelling, bilateral hearing aids; nose atraumatic; poor dentition, tongue normal appearance Neck: Supple, no LAD Cardio: RRR, soft systolic murmur LUSB, no G/R, S1 and S2 normal Resp: No respiratory distress, Lungs CTA in all lobes bilaterally, no wheezes, rales, or rhonchi Abdomen: Soft, symmetric, nontender; No masses or hepatosplenomegaly; Bowel sounds normoactive MSK: No deformities; pulses palpable and equal; no edema. Neuro: Awake, alert; Sensation intact bilaterally; CN intact Psych: Appropriate mood and affect Results & Data Results & Data Vital Signs (Past 12 Hours) Vital Signs Temp Pulse Resp BP Pulse Ox O2 Del Method 07/17/24 11:23 73 07/17/24 11:07 36.4 C L 71 20 123/59 L 92 Room Air Laboratory Results 07/17/24 11:39 WBC 10.33 RBC 3.09 L Hgb 9.2 L Hct 28.8 L MCV 93.2 MCH 29.8 MCHC 31.9 L RDW Std Deviation 73.2 H RDW Coeff of Linda 21.5 H Plt Count 253 MPV 10.8 Immature Gran % (Auto) 0.3 Neut % (Auto) 72.2 Lymph % (Auto) 16.9 [place] % (Auto) 8.9 Eos % (Auto) 1.1 Baso % (Auto) 0.6 Neut # (Auto) 7.46 H Lymph # (Auto) 1.75 [place] # (Auto) 0.92 H Eos # (Auto) 0.11 Baso # (Auto) 0.06 Immature Gran # (Auto) 0.03 Absolute Nucleated RBC 0.02 Nucleated RBC % (auto) 0.2 Anisocytosis Present PT 11.0 INR 1.0 Sodium 140 Potassium 4.9 Chloride 107 Carbon Dioxide 27 Anion Gap 6 BUN 31 H Creatinine 1.53 H Est Cr Clr Drug Dosing 39.8 eGFR 46.25 BUN/Creatinine Ratio 20.3 H Glucose 179 H Calcium 8.9 Magnesium 1.7 Code Status & VTE Plan Code Status Full Supervising Physician Co-Signing Physician Notes Patient seen and examined, chart reviewed, case discussed with Yair Franco PA-C and I agree with the assessment and plan as above except as otherwise noted Labs and images reviewed 79-year-old male with past medical history of lumbar radiculopathy s/p operative intervention with Dr. Brown 05/18/2024 who presents with left leg pain worsening in strength of the right with follow-up MRI shows a large seroma present thecal sac. Orthospine consulted. Anticipate seroma drainage with Dr. Brown 07/18/2024. Clears, n.p.o. midnight. Renal function baseline around 1.21.59, 1.53 on admission. Patient is on dual antiplatelet therapy. Took both agents this morning. Patient reports his last cath and stent was around . No recent chest pain on exertion or shortness of breath with exertion, no chest pain at rest. Does feel short of breath when he gets pain spasms, no wheezing. No fevers chills or sweats. At bedside he is nondistressed, denies pain while laying in bed. Has had continued progressive weakness of the lower extremities, no incontinence but with difficulty with bowel movements as noted.Plavix held pending surgical intervention. Did review with Dr. Brown. did review for surgery tomorrow versus waiting for Plavix washout, due to findings patient is recommended for intervention 07/18. Hold Plavix, continue aspirin. 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
--- NOTE | 2024-07-17 17:08 | Orthopedic Consultation ---
Date of Consultation July 17, 2024 Assessment & Plan (1) Fusion of spine, lumbar region: Assessment status post lumbar decompression and fusion with a postop seroma. He will be made n.p.o. after midnight with plan for irrigation and debridement in the a.m. History of Present Illness Reason for Consultation: Postop seroma Attending Physician: This is a 79-year-old male known to me the presents to my office today with a steady decline in status since his surgery. MRI was performed demonstrating evidence of a large seroma in the operative bed at the distal portion of his d ecompression. This is causing significant bilateral lower extremity weakness and pain. Allergies Allergy/AdvReac Type Severity Reaction Status Date / Time bee venom protein (honey bee) Allergy Severe SWELLING Verified 06/07/24 11:35 Sulfa (Sulfonamide Allergy Intermediate "SULFA": Verified 06/07/24 11:35 Antibiotics) RASH Penicillins Allergy Unknown UNKNOWN Verified 06/07/24 11:35 lisinopril Allergy unknown Verified 06/07/24 11:35 reaction codeine AdvReac Intermediate HALLUCINATI Verified 06/07/24 11:35 NG meloxicam AdvReac renal Verified 06/07/24 11:35 failure Home Medications Medication Instructions Recorded Confirmed Type epinephrine 0.3 mg/0.3 mL 0.3 mg IM Q3H PRN Allergy Symptoms 10/21/18 07/17/24 History injection, auto-injector (EpiPen) finasteride 5 mg tablet 5 mg PO QAM 10/21/18 07/17/24 History atorvastatin 40 mg tablet (Lipitor) 40 mg PO HS 10/22/18 07/17/24 History donepezil 10 mg tablet 10 mg PO QAM 10/22/18 07/17/24 History lamotrigine 200 mg tablet 200 mg PO HS 10/22/18 07/17/24 History buspirone 30 mg tablet 30 mg PO TID 07/21/20 07/17/24 History nitroglycerin 0.4 mg sublingual 0.4 mg sublingual Q5M PRN Chest 08/21/20 07/17/24 Rx tablet (Nitrostat) Pain #30 tabs memantine 5 mg tablet 5 mg PO BID #180 tabs 11/05/21 07/17/24 Rx cetirizine 10 mg tablet 10 mg PO DAILY PRN allergy 11/18/21 07/17/24 Rx symptoms #30 tabs clopidogrel 75 mg tablet 75 mg PO HS 08/16/23 07/17/24 History albuterol sulfate 90 mcg/actuation 2 puff inhalation Q4H PRN 03/21/24 07/17/24 History aerosol inhaler Shortness Of Breath Or Wheezing alfuzosin 10 mg tablet,extended 10 mg PO HS 03/21/24 07/17/24 History release 24 hr budesonide 160 mcg-glycopyr 9 2 inh inhalation QAM 03/21/24 07/17/24 History mcg-formot 4.8 mcg/actuation HFA inhaler (Breztri Aerosphere) carvedilol 3.125 mg tablet 3.125 mg PO BID 03/21/24 07/17/24 History mupirocin 2 % topical ointment 1 applic topical TID #15 grams 03/23/24 07/17/24 Rx dorzolamide (PF) 2 % (PF) eye drops 1 drp ophthalmic (eye) HS 04/05/24 07/17/24 History timolol maleate (PF) 0.5 % eye 1 drp ophthalmic (eye) HS 04/05/24 07/17/24 History drops in a dropperette pantoprazole 40 mg tablet,delayed 40 mg PO BID #60 tabs 04/16/24 07/17/24 Rx release duloxetine 60 mg capsule,delayed 60 mg PO BID #180 caps 04/23/24 07/17/24 Rx release latanoprost 0.005 % eye drops 1 drp ophthalmic (eye) QAM #0 mL 05/24/24 07/17/24 Rx acetaminophen 500 mg tablet 500 mg PO Q6H 06/02/24 07/17/24 History (Acetaminophen Extra Strength) ondansetron HCl 4 mg tablet 4 mg PO BID PRN nausea and vomiting 06/02/24 07/17/24 History insulin glargine 100 unit/mL (3 See Rx Instructions subcut BID 06/07/24 07/17/24 History mL) subcutaneous pen (Lantus Solostar U-100 Insulin) gabapentin 800 mg tablet 800 mg PO TID #270 tabs 06/28/24 07/17/24 Rx tramadol 50 mg tablet 50 mg PO QID PRN pain #120 tabs 07/13/24 07/17/24 Rx aspirin 81 mg tablet,delayed 81 mg PO DAILY 07/14/24 07/17/24 History release glimepiride 1 mg tablet 2 mg PO BID 07/14/24 07/17/24 History Patient History Medical History TAYLOR (acute kidney injury) Lumbar spinal stenosis Left lumbar radiculopathy Orthostatic hypotension Hyperkalemia Acute alteration in mental status Foreign body of right heel Syncope and collapse happened once in 2020 Hx of squamous cell carcinoma Pulmonary embolism per "he never had one, thinks they ruled this out at one point in time" PTSD (post-traumatic stress disorder) PAD (peripheral artery disease) Orthostatic hypotension happens sometimes Hip pain, left ongoing, radiates down to foot Lumbosacral radiculopathy at S1 Hyperlipidemia Generalized anxiety disorder Diabetes mellitus, type 2 per "not well controlled" Depression CKD (chronic kidney disease) unsure of stage Chronic low back pain Chronic anemia Cervicalgia hx, no current issues Neuropathy Carotid artery stenosis Cardiomyopathy Biventricular cardiac pacemaker in situ Asthma with COPD daily and prn inh Ascending aortic aneurysm monitoring currently; f/u dr[place] seg[place] [facility] [place]x-TIA (transient ischemic attack) 2019, slurred speech and confusion, [facility]no residual symtoms History of COVID-2019, tested thru PCP, not hosp; mild symptoms-diarrhea, cold symptoms>resolved Chronic bronchitis Leukocytosis hx CARTER (dyspnea on exertion) chronic Bicuspid aortic valve replaced with bioprosthetic valve Dementia "mild" BPH (benign prostatic hyperplasia) HTN (hypertension), benign CAD (coronary artery disease) Myocardial infarction 2011, SOB w/chest tightness and pain into shoulder and jaw, phan general, had cardiac cath w/2 stents Surgical History Hx of squamous cell carcinoma excision hand S/P cardiac pacemaker procedure History of back surgery x2, 05/10/2020 Grade 2 view with Mac 3 blade; both lower back History of tonsillectomy History of repair of rotator cuff right S/P right knee surgery H/O endoscopic retrograde cholangiopancreatography History of colonoscopy Hx of cholecystectomy H/O cardiac catheterization ~2001, SOB w/chest tightness, [facility], x2 stents; 2002, SOB w/chest tightness, [place], x2; 2003, SOB w/chest tightness, [place], x1 stent; 2004, SOB w/chest tightness, [place], x1 stent; 2009, SOB w/chest tightness, [place], x2 stents; 2011, SOB w/chest tightness[facility], [facility]; 2013, SOB w/chest tightness, x2 stents, [place]; 2015, SOB w/chest tightness, [place], x1 stent; 2017, SOB w/chest tightness, x2 stents; 2019, SOB w/chest tightness, [facility], x4 stents; f/u S/P [facility]; [facility]/u dr. segura Family History Sister Anxiety Brother Alcohol abuse Father Cardiac disorder Myocardial infarction Mother Depression Kidney disease Lung disease Stroke Other Family history non-contributory Denies family history of Ovarian cancer Prostate cancer Breast cancer Colorectal cancer Social History Smoking Status: Current some day smoker Tobacco Type: Smokeless Tobacco (Dip or Chew) Age Started Using Tobacco: 16; Age Quit Using Tobacco: 64; packs per day: 2; Cigarettes Per Day: maybe 5-10 cigarettes per month; Second Hand Exposure: No; Do You Dip or Chew Tobacco: Yes; Hx Alcohol Use: Yes Alcohol type: beer and hard liquor Hx Substance Use: No Preferred Language: Wolof Communication Ability: Effective Visual Impairment: Limited Hearing Ability: Use of Hearing Aid Mirror Painter Required: No Beliefs That Will Affect Care: None marital status: Current Living Situation: Spouse Current Living Situation Comment: House Feels Safe at Home: Yes Childhood Exposure to Second-Hand Smoke: Yes Seatbelt Use: always Sunscreen Use: Yes Assistive Devices: Cane, Walker and Wheelchair Physical Exam Physical Exam: On exam the patient is currently bed. He is comfortable conversant. He is a good strength testing. Sensory is diminished secondary to established peripheral neuropathy Results & Data Vital Signs (Past 12 Hours) Vital Signs Temp Pulse Pulse Resp BP BP Pulse Ox 07/17/24 16:14 67 19 146/71 H 96 07/17/24 13:11 36.8 C 73 19 115/76 95 07/17/24 11:23 73 07/17/24 11:07 36.4 C L 71 20 123/59 L 92 O2 Del Method 07/17/24 16:14 Room Air 07/17/24 13:11 Room Air 07/17/24 11:23 07/17/24 11:07 Room Air
[2024-07-17] MEDS ORDERED: HYDROmorphone HCL 2 MG TAB PO PRN (17:38)
[2024-07-17] MEDS ORDERED: HYDROmorphone INJ 0.5 MG/0.5 ML SYR IV PRN (17:38)
[2024-07-17] MEDS: HYDROmorphone INJ 0.5 MG/0.5 ML SYR IV PRN (17:46)
[2024-07-17] MEDS ORDERED: GLUCAGON FOR INJ 1 MG VIAL SQ PRN (18:32)
[2024-07-17] MEDS ORDERED: GLUCOSE 40% GEL 15 GM TUBE PO PRN (18:32)
[2024-07-17] MEDS ORDERED: CARBOHYDRATES FOR HYPOGLYCEMIA PO PRN (18:32)
[2024-07-17] MEDS ORDERED: PHARMACY GLYCEMIC MGMT CONSULT PRN (18:32)
[2024-07-17] MEDS ORDERED: GLUCOSE 10 TAB/TUBE PO PRN (18:32)
[2024-07-17] MEDS ORDERED: DEXTROSE 50% 50 ML SYRINGE IV PRN (18:32)
[2024-07-17] MEDS ORDERED: ALBUTEROL HFA 8 GM INHALER INH PRN (18:32)
[2024-07-17] MEDS ORDERED: NITROGLYCERIN SL 0.4 MG/TAB TAB SL PRN (18:32)
[2024-07-17] MEDS ORDERED: ONDANSETRON 4 MG OD TAB PO PRN (18:40)
[2024-07-17] MEDS: busPIRone 15 MG TAB PO SCH (19:24)
[2024-07-17] MEDS: INSULIN ASPART PER UNIT CHARGE SC SCH (19:32)
[2024-07-17] MEDS: ATORVASTATIN 40 MG TAB PO SCH (20:06)
[2024-07-17] MEDS: DULoxetine HCL 60 MG CAP PO SCH (20:07)
[2024-07-17] MEDS: MEMANTINE HCL 5 MG TAB PO SCH (20:08)
[2024-07-17] MEDS: GABAPENTIN 300 MG CAP PO SCH (20:08)
[2024-07-17] MEDS: lamoTRIgine 100 MG TAB PO SCH (20:08)
[2024-07-17] MEDS: PANTOprazole 40 MG TAB PO SCH (20:09)
[2024-07-17] MEDS: carvediloL 3.125 MG TAB PO SCH (20:12)
[2024-07-17] MEDS: DORZOLAMIDE HCL 2% OPH SOLN 10 ML BTL OP SCH (20:13)
[2024-07-17] MEDS: TIMOLOL MALEATE 0.5% OP SOLN 5 ML BTL OP SCH (20:13)
[2024-07-17] MEDS: LANTUS PER UNIT CHARGE SQ STA (21:33)
[2024-07-18] MEDS: HYDROmorphone INJ 0.5 MG/0.5 ML SYR IV PRN ×2 (01:43→13:49)
[2024-07-18] MEDS ORDERED: DEXAMETHASONE SOD INJ 4 MG/ML VIAL ONE (06:59)
[2024-07-18] MEDS ORDERED: ONDANSETRON INJ 2 MG/ML 2 ML VIAL ONE (06:59)
[2024-07-18] MEDS ORDERED: ROCURONIUM BROMIDE 10 MG/ML 5 ML VIAL IV ONE (06:59)
[2024-07-18] MEDS ORDERED: LIDOCAINE 2% 2 ML VIAL/AMP(20MG/ML) INFIL ONE (06:59)
[2024-07-18] MEDS ORDERED: PROPOFOL IV EMULSION 10 MG/ML 20 ML VIAL IV ONE (06:59)
[2024-07-18] MEDS ORDERED: fentaNYL citrate PF 100 MCG/2 ML VIAL ONE (07:00)
[2024-07-18] MEDS ORDERED: MIDAZOLAM HCL 1 MG/ML 2ML VIAL ONE (07:00)
[2024-07-18] MEDS ORDERED: ePHEDrine sulfate 50 MG/ML AMP ONE (07:42)
[2024-07-18] MEDS ORDERED: PHENYLEPHRINE HCL 10 MG/ML VIAL ONE (07:42)
--- NOTE | 2024-07-18 07:43 | History & Physical Bridge Note ---
Date of Service July 18, 2024 History & Physical Bridge Note I have examined the patient, reviewed the History & Physical and in the interval since the performance of the History & Physical I have noted the following changes of clinical significance: no changes noted Irrigation and debridement lumbar spine
[2024-07-18] MEDS: CLINDAMYCIN/D5W 900 MG/50 ML BAG IV SCH (07:50)
--- NOTE | 2024-07-18 08:02 | Hospitalist Progress Note ---
Date of Service July 18, 2024 Assessment & Plan (1) Cauda equina syndrome: Plan: 79-year-old male with past medical history of lumbar radiculopathy s/p operative intervention with Dr. Brown 05/18/2024 who presented with bilateral leg weakness and L>R leg pain as well as increasing difficulties with bowel and bladder incontinence - MRI showed a large seroma compressing posterior thecal sac. 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 Reduced to 300 mg tid which is max dose for his renal function PT/OT (2) Myelodysplasia (myelodysplastic syndrome): Plan: Anemia since 2019; records indicating MDS - Has required blood transfusions following surgical interventions previously - postop Hg stable 9.3 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: Plan: H/o DMT2 - At home regimen Glimepiride 2mg BID, Lantus 10U daily- HOLD po medications while inpatient - Most recent A1C 7.8% (07/14/2024) - SSI with target BSG range 110-140mg/dL, CF 30, carb ratio 10 - T2DM diet - BSG ACHS while eating, q6h while npo - Adjust regimen as needed - Pharm glycemic consult placed (4) Asthma with COPD: Plan: Stable, per patient; no recent exacerbations, no current symptoms - Bronchodilators as needed (5) CAD (coronary artery disease): Plan: Cath 01/15/2021 w/o stent placement, multiple stents placed; PCI most recently in 2019 - Aspirin, Plavix, atorvastatin, coreg - No ischemic symptoms currently - Echo 05/17/2024- ventricular systolic function normal, no regional wall normalities, moderate LVH, EF 60 to 65%, prosthetic aortic valve seated well, gradient normal for prosthetic aortic valve, mild MR - Pacer upgraded to BiV pacer 2020; interrogation 06/2024 normal - Bioprosthetic AV replacement (6) Stage 3b chronic kidney disease: Plan: H/o CKD stage IIIb, baseline Cr 1.2-1.59 - Cr 1.53 on admission and improved this afternoon, no evidence TAYLOR currently - mild hyperkalemia - no offending meds, ordered one dose lokelma - AM BMP Plan HLD- Atorvastatin Anxiety- Buspirone GERD- pantoprazole Dementia- Namenda, Aricept PTSD- [facility], Lamictal, duloxetine BPH- Finasteride, alfuzosin (? has not started this yet; holding for now); bladder scan prn VTE Prophylaxis- SCDs PT/OT eval Admission and Anticipated Discharge Date Admission Date: July 17, 2024 Subjective Left leg pain from buttock down to foot, persists No RLE pain right now Waiting to see if pain med will kick in Both legs are weak Tolerated surgery well, no dyspnea or chest pain Physical Exam 2 Physical Exam: PHYSICAL EXAMINATION Last 24h vital signs reviewed, see documentation in flowsheet General: comfortable appearing, no distress, sitting on his 4ww by the bed HEENT: Normocephalic, atraumatic, pupils round and equal, sclerae anicteric, no conjunctival injection, moist mucus membranes Lungs: Normal respiratory effort. Clear to auscultation bilaterally. No RRW Heart: Regular rate and rhythm, no murmurs. No JVD Abdomen: Soft, nontender, nondistended. Bowel sounds present. Lumbar drain present, Lspine area with surgical dressing cdi Extremities: Warm, dry, well-perfused. No extremity edema. Neuro: Alert and oriented x 4, face symmetric, bilateral LE weakness Psych: Normal affect and behavior Results & Data Results & Data Vital Signs (Past 12 Hours) Vital Signs Temp Pulse Resp BP Pulse Ox O2 Del Method 07/18/24 06:40 98.4 F 76 20 167/97 H 96 Room Air 07/17/24 20:11 97.7 F 76 18 144/64 H 97 Room Air Laboratory Results 07/18/24 13:02 07/18/24 13:02 PG Care Time/CCT Total # of Minutes Spent Total Time Spent with Patient: Total time spent is greater than 50% in coordination of care (as documented) at patient's floor/unit and/or counseling patient: Coding Level of Care Code 32937 SUB INP/OBS CARE 2/35MIN Diagnoses Cauda equina syndrome G83.4 Myelodysplasia (myelodysplastic syndrome) D46.9 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 E11.43; E11.65 Asthma with COPD J44.9 CAD (coronary artery disease) I25.10 Stage 3b chronic kidney disease N18.32
[2024-07-18] MEDS: BUPIVACAINE/EPINEPHRINE 0.5% MPF 1:200,000 30 ML VIAL ONE (08:15)
[2024-07-18] MEDS: VANCOMYCIN HCL 1000MG/20ML VIAL ONE (08:19)
[2024-07-18] MEDS: GENTAMICIN SULFATE 40 MG/ML 2 ML VIAL ONE (08:19)
[2024-07-18] MEDS ORDERED: SUGAMMADEX SODIUM 200 MG/2 ML VIAL IV ONE (08:19)
[2024-07-18] MEDS: ceFAZolin 330 MG/ML 1 GM VIAL ONE (08:19)
--- NOTE | 2024-07-18 08:24 | Operative Report ---
Post Operative Report Pre & Post Diagnosis Operation Date: 07/18/24 07:45 Pre-Op Diagnosis: Postoperative lumbar seroma Post-Op Diagnosis: Same I identified the patient and participated in the time-out.: Yes Procedure Operation Date: 07/18/24 07:45 Actual Procedures Irrigation debridement lumbar spine with evacuation of postop seroma Surgeon Shaheed Brown DO Decorating Equipment Setter Maria Victoria Colvin Estimated Blood Loss 10 Findings Consistent with Post-Op Diagnosis Specimens None Indications This is a 79-year-old male who presents with a postoperative seroma causing compression of the thecal sac. Subsequently he is here for evacuation. Description of Procedure Patient was met with identified informed consent obtained. Patient was then taken to the operative suite underwent intubation placed in a prone position on the Lester table atop the Chava frame. All bony prominences well-padded eyes inspected to ensure no external placed upon them. This point lumbar spine is prepped and draped in sterile fashion. Sharp dissection with assistance bradycardias from down to and exposing the L5-S1 decompressed region of the spine. Identified seroma with evidence of organized blood clot in this region. It was copiously irrigated with antibiotic solution. A 15 round NASEEM drain was then inserted. It was closed with subcutaneous Vicryl and 4 Monocryl for final skin closure. Steri-Strips sterile dressing placed. Patient waken taken to PACU in stable condition. Please note Maria Victoria Colvin was present throughout the entire procedure and brought the patient positioning complex portion of the surgery and final skin closure. I attest to the content of the Intraoperative Record and any orders documented therein. Any exceptions are noted below.
[2024-07-18] MEDS ORDERED: ePHEDrine sulfate 50 MG/ML AMP IV PRN (08:49)
[2024-07-18] MEDS ORDERED: ONDANSETRON INJ 2 MG/ML 2 ML VIAL IV PRN ×2 (08:49→09:43)
[2024-07-18] MEDS ORDERED: HYDROmorphone INJ 2 MG/ML SYR/VIAL IV PRN (08:49)
[2024-07-18] MEDS ORDERED: ATROPINE SULFATE 0.1 MG/ML 10ML SYR IV PRN (08:49)
[2024-07-18] MEDS ORDERED: PROMETHAZINE HCL 6.25 MG in SODIUM CHLORIDE 0.9% 50 ML IV PRN (08:49)
[2024-07-18] MEDS ORDERED: fentaNYL citrate PF 100 MCG/2 ML VIAL IV PRN (08:49)
[2024-07-18] MEDS ORDERED: LANTUS PER UNIT CHARGE SQ SCH (09:00)
[2024-07-18] MEDS ORDERED: NON-FORMULARY MEDICATION (Budesonide-Glycopyr-Formoterol [Breztri Aerosphere] 160-9-4.8 mc INH SCH (09:00)
[2024-07-18] MEDS ORDERED: diphenhydrAMINE Capsule 25 MG CAP PO PRN (09:43)
[2024-07-18] MEDS ORDERED: ACETAMINOPHEN 1,000 MG/100 ML VIAL IV PRN (09:43)
[2024-07-18] MEDS ORDERED: oxyCODONE HCL IR 5 MG TAB (IMMEDIATE RELEASE) PO PRN (09:43)
[2024-07-18] MEDS ORDERED: ONDANSETRON 4 MG OD TAB PO PRN (09:43)
[2024-07-18] MEDS ORDERED: FAMOTIDINE 20 MG TAB PO PRN (09:43)
[2024-07-18] MEDS ORDERED: bisacodyL 10 MG SUPP PR PRN (09:43)
[2024-07-18] MEDS ORDERED: DO NOT ADMINISTER FLU VACCINE PRN (09:43)
[2024-07-18] MEDS ORDERED: NALOXONE HCL 0.4 MG/1 ML VIAL/CARP IV PRN (09:43)
[2024-07-18] MEDS ORDERED: DO NOT ADMINISTER PNEUMOCOCCAL VACCINE PRN (09:43)
[2024-07-18] MEDS ORDERED: LORazepam 0.5 MG TAB PO PRN (09:43)
[2024-07-18] MEDS ORDERED: MAGNESIUM HYDROXIDE SUSP 30 ML UDC PO PRN (09:43)
[2024-07-18] MEDS ORDERED: hydrOXYzine HCl 25 MG TAB PO PRN (09:43)
[2024-07-18] MEDS ORDERED: SOD PHOSPHATE/SOD BIPHOSPHATE ENEMA 132 ML BTL PR PRN (09:43)
[2024-07-18] MEDS ORDERED: LORazepam 2 MG/1 ML VIAL IV PRN (09:43)
[2024-07-18] MEDS ORDERED: METOCLOPRAMIDE HCL INJ 5 MG/ML 2 ML VIAL IV PRN (09:43)
[2024-07-18] MEDS ORDERED: PROMETHAZINE 12.5 MG/50.5 ML BAG IV PRN (09:43)
[2024-07-18] MEDS ORDERED: ALUMINUM/MAGNESIUM SUSP 30 ML UDC PO PRN (09:43)
[2024-07-18] MEDS ORDERED: ACETAMINOPHEN 500 MG TAB PO PRN (09:43)
[2024-07-18] MEDS: CLINDAMYCIN 900 MG/D5W 50 ML BAG IV ONE (10:09)
[2024-07-18] MEDS: DONEPEZIL HCL 10 MG TAB PO SCH (10:22)
[2024-07-18] MEDS: ASPIRIN 81 MG ECTAB PO SCH (10:22)
[2024-07-18] MEDS: FINASTERIDE 5 MG TAB PO SCH (10:22)
[2024-07-18] MEDS: UMECLIDINIUM/VILANTEROL 62.5/25MCG 7 PUFFS/INHALER INH SCH (10:24)
[2024-07-18] MEDS: FLUTICASONE FUROATE 200MCG 14 PUFFS/INHALER INH SCH (10:24)
[2024-07-18] MEDS: traMADol HCL 50 MG TABLET PO PRN (11:16)
--- NOTE | 2024-07-18 12:11 | Anesthesiology Progress Note ---
Date of Service July 18, 2024 Anesthesia Post Procedure Vital Signs Vital Signs: Temp Pulse Pulse Resp BP Pulse Ox O2 Del Method 07/18/24 11:19 36.7 C 86 16 111/63 93 Room Air 07/18/24 09:20 36.5 C 68 21 107/72 97 Nasal Cannula 07/18/24 09:10 76 19 123/62 93 Room Air 07/18/24 09:00 63 18 127/58 L 98 Room Air 07/18/24 08:50 65 18 118/86 97 Oxymask 07/18/24 08:44 36.3 C L 61 16 124/58 L 99 Oxymask 07/18/24 06:40 36.9 C 76 20 167/97 H 96 Room Air 07/17/24 20:11 36.5 C 76 18 144/64 H 97 Room Air 07/17/24 18:07 36.4 C L 76 16 129/65 96 Room Air 07/17/24 17:47 36.8 C 67 18 121/86 98 Room Air 07/17/24 16:14 67 19 146/71 H 96 Room Air 07/17/24 13:11 36.8 C 73 19 115/76 95 Room Air O2 Flow Rate 07/18/24 11:19 07/18/24 09:20 2 07/18/24 09:10 07/18/24 09:00 07/18/24 08:50 9 07/18/24 08:44 9 07/18/24 06:40 07/17/24 20:11 07/17/24 18:07 07/17/24 17:47 07/17/24 16:14 07/17/24 13:11 Pain Intensity Bilateral Leg: Pain Intensity: 10 Transfer of Care Handoff Completed per policy Notes Mental Status: alert / awake / arousable and participated in evaluation Patient Amnestic to Procedure: Yes Nausea / Vomiting: adequately controlled Pain: adequately controlled Airway Patency, RR, SpO2: stable & adequate BP & HR: stable & adequate Hydration State: stable & adequate Anesthetic Complications: no major complications apparent
[2024-07-18 13:18] LABS: Hematocrit (blood only) 29.1 % (42.0-52.0); Hemoglobin 9.3 g/dl (14.0-18.0); Mean Corpuscular Hemoglobin 29.8 pg (25.0-34.0); Mean Corpuscular Volume 93.3 fL (80.0-100.0); Mean Platelet Volume 10.8 fL (9.4-12.4); Nucleated RBC # (auto) 0.02 K/uL (0.00-0.12); Nucleated RBC % (auto) 0.2 %; Platelet Count 266 K/uL (130-400); RDW Coefficient of Variation 21.6 % (11.5-14.5); RDW Standard Deviation 74.5 fL (36.4-46.3); Red Blood Count 3.12 M/uL (4.70-6.10); White Blood Count 12.37 K/ul (4.8-10.8)
[2024-07-18 13:39] LABS: BUN Creatinine Ratio 20.6 (10-20); Calcium 8.7 mg/dl (8.6-10.3); Creatinine Clr Calc Pharmacy 46.5 ml/min; Potassium 5.6 mmol/L (3.5-5.1)
--- NOTE | 2024-07-18 13:57 | Pharmacy Report ---
Pharmacy Glycemic Short Note 2 - Date of Service July 18, 2024 - Glycemic Short BSG Results (Last 24 hours): 07/17/24 07/17/24 07/18/24 18:10 20:36 05:39 Glucose POC Glucose 165 H 225 H 88 07/18/24 07/18/24 07/18/24 08:45 11:32 13:02 Glucose 277 H POC Glucose 79 209 H OUTPATIENT ANTIDIABETIC REGIMEN: * Glimepiride 2 mg BID + Lantus qAM * a1c 7.8% 07/14/24 ASSESSMENT: * Patient now POD #0, evacuation of seroma * Fasting below goal this morning but patient received 8 mg of dexamethasone IV and BSGs are now trending upward- will start 10 units BID * Tighten carb ratio PLAN FOR INPATIENT GLYCEMIC CONTROL: * Hold outpatient oral diabetes medications * Basal insulin * Lantus 10 units SQ BID * Bolus insulin * NovoLog per scale ACHS or Q6hrs while NPO * Goal Range: Low 110 mg/dL - High 140 mg/dL * Correction Factor: 20 mg/dL/unit * Nutritional / Prandial insulin per carb ratio of 1 unit per 5 grams CHO consumed
[2024-07-18] MEDS: LANTUS PER UNIT CHARGE SC ONE (13:58)
[2024-07-18] MEDS: SODIUM ZIRCONIUM CYCLOSILICATE 10 GM PACKET PO ONE (15:45)
[2024-07-18] MEDS: CLINDAMYCIN/D5W 600 MG/50 ML BAG IV SCH (16:47)
[2024-07-18] MEDS: ACETAMINOPHEN 500 MG TAB PO SCH (17:50)
[2024-07-18] MEDS: DOCUSATE SODIUM/SENNA 50/8.6MG TAB PO SCH (20:10)
[2024-07-18] MEDS: GABAPENTIN 300 MG CAP PO SCH (20:11)
[2024-07-18] MEDS ORDERED: GABAPENTIN 400 MG CAP PO SCH (21:00)
[2024-07-18] MEDS ORDERED: GABAPENTIN 600 MG TAB PO SCH (21:00)
[2024-07-18] MEDS ORDERED: GABAPENTIN 800 MG TAB PO SCH ×2 (21:00)
[2024-07-18] MEDS: LANTUS PER UNIT CHARGE SQ SCH (21:48)
[2024-07-19] MEDS: INSULIN ASPART PER UNIT CHARGE SC SCH (00:10)
[2024-07-19 03:16] VITALS: O2SAT 95
[2024-07-19] MEDS: POLYETHYLENE (MIRALAX) 17 GM PACK PO SCH (05:50)
[2024-07-19 06:47] LABS: Hematocrit (blood only) 26.4 % (42.0-52.0); Hemoglobin 8.6 g/dl (14.0-18.0); Mean Corpuscular Hemoglobin 30.3 pg (25.0-34.0); Mean Corpuscular Hgb Conc 32.6 g/dL (32.0-36.0); Mean Platelet Volume 11.6 fL (9.4-12.4); Platelet Count 254 K/uL (130-400); RDW Coefficient of Variation 20.9 % (11.5-14.5); RDW Standard Deviation 71.8 fL (36.4-46.3); Red Blood Count 2.84 M/uL (4.70-6.10); White Blood Count 12.22 K/ul (4.8-10.8)
[2024-07-19 07:13] LABS: Calcium 8.6 mg/dl (8.6-10.3); Potassium 4.8 mmol/L (3.5-5.1)
[2024-07-19 07:19] LABS: BUN Creatinine Ratio 21.2 (10-20); Creatinine Clr Calc Pharmacy 46.1 ml/min
[2024-07-19 07:46] VITALS: BP 154/62; RESP 15; TEMP 98.1
[2024-07-19] MEDS: LANTUS PER UNIT CHARGE SQ SCH (08:48)
--- NOTE | 2024-07-19 09:42 | Neurology Consultation ---
Date of Consultation July 19, 2024 Assessment & Plan (1) Seroma of musculoskeletal structure after musculoskeletal system procedure: History of Present Illness Attending Physician: Robert Nolan MD History of Present Illness pt s/p lumbar seroma drain yesterday. ortho surgeon placed neuro consult, assuming for EMG perhaps. pt this morning feeling much better after the drainage, able to walk much better and stand. admission HPI: 79-year-old male presenting 2 months postop from orthopedic surgery by Dr. Brown, sent to ED for large seroma; complaining of leg pain and trouble walking. ED course: CBC-RBC 3.09, H&H 9.2/28.8, MCH 31.9, RDW 73.2, neutrophil predominance without leukocytosis-7.46; PT/INR WNL; CMP creatinine 1.53, BUN 31, BUN/creatinine ratio 20.3, glucose 179; calcium 8.9; magnesium 1.7; lumbar spine MRI from 07/13/2024 revealing postop changes from posterior decompression interbody annette and screw fusion extending from L2-S1, interval removal of L3 pedicle screws with L4-L5 and L5-S1 laminectomy, postoperative fluid collection posterior to the L5 vertebral body approximately 5 cm, compressing posterior thecal sac sudden severe central canal stenosis at L5-S1, moderate narrowing paravertebral edema L5-S1 likely degenerative/reactive, additional discogenic degeneration generally unchanged. Provided with Dilaudid in ED. Patient is 79-year-old male PMHx CKD, COPD, BPH, myelodysplastic syndrome, HTN, HLD, T2DM, PAD, and recent surgical intervention on 05/18/24 to the spine performed by Dr. Brown for underlying diagnosis of lumbar radiculopathy. Presenting for worsening symptoms in his bilateral legs since surgery in May. States that ever since his surgery, he has felt that his legs are "deteriorating" and that he is losing his muscle in his legs. Did go to 5 days of inpatient physical therapy, but left because he was only receiving 0.5 hours of therapy per day. Notes that his legs are just continuing to weaken but that his pain is overall well-controlled. Denies complete bowel or bladder incontinence but does admit that it is sometimes difficult to control his bowel. Did go PCP 07/14 after MRI completed 07/13 which revealed postoperative fluid collection posterior to the L5 vertebral body measuring 5 cm compressing the posterior thecal sac resulting in severe central canal stenosis of L5-S1. Denies chest pain, shortness of breath, palpitations, abdominal pain, N/V/D/C, worsening numbness/tingling, or syncopal episodes. Took all a.m. medications. Allergies Allergy/AdvReac Type Severity Reaction Status Date / Time bee venom protein (honey bee) Allergy Severe SWELLING Verified 06/07/24 11:35 Sulfa (Sulfonamide Allergy Intermediate "SULFA": Verified 06/07/24 11:35 Antibiotics) RASH Penicillins Allergy Unknown UNKNOWN Verified 06/07/24 11:35 lisinopril Allergy unknown Verified 06/07/24 11:35 reaction codeine AdvReac Intermediate HALLUCINATI Verified 06/07/24 11:35 NG meloxicam AdvReac renal Verified 06/07/24 11:35 failure Home Medications Medication Instructions Recorded Confirmed Type epinephrine 0.3 mg/0.3 mL 0.3 mg IM Q3H PRN Allergy Symptoms 10/21/18 07/17/24 History injection, auto-injector (EpiPen) finasteride 5 mg tablet 5 mg PO QAM 10/21/18 07/17/24 History atorvastatin 40 mg tablet (Lipitor) 40 mg PO HS 10/22/18 07/17/24 History donepezil 10 mg tablet 10 mg PO QAM 10/22/18 07/17/24 History lamotrigine 200 mg tablet 200 mg PO HS 10/22/18 07/17/24 History buspirone 30 mg tablet 30 mg PO TID 07/21/20 07/17/24 History nitroglycerin 0.4 mg sublingual 0.4 mg sublingual Q5M PRN Chest 08/21/20 07/17/24 Rx tablet (Nitrostat) Pain #30 tabs memantine 5 mg tablet 5 mg PO BID #180 tabs 11/05/21 07/17/24 Rx cetirizine 10 mg tablet 10 mg PO DAILY PRN allergy 11/18/21 07/17/24 Rx symptoms #30 tabs clopidogrel 75 mg tablet 75 mg PO HS 08/16/23 07/17/24 History albuterol sulfate 90 mcg/actuation 2 puff inhalation Q4H PRN 03/21/24 07/17/24 History aerosol inhaler Shortness Of Breath Or Wheezing alfuzosin 10 mg tablet,extended 10 mg PO HS 03/21/24 07/17/24 History release 24 hr budesonide 160 mcg-glycopyr 9 2 inh inhalation QAM 03/21/24 07/17/24 History mcg-formot 4.8 mcg/actuation HFA inhaler (Breztri Aerosphere) carvedilol 3.125 mg tablet 3.125 mg PO BID 03/21/24 07/17/24 History mupirocin 2 % topical ointment 1 applic topical TID #15 grams 03/23/24 07/17/24 Rx dorzolamide (PF) 2 % (PF) eye drops 1 drp ophthalmic (eye) HS 04/05/24 07/17/24 History timolol maleate (PF) 0.5 % eye 1 drp ophthalmic (eye) HS 04/05/24 07/17/24 History drops in a dropperette pantoprazole 40 mg tablet,delayed 40 mg PO BID #60 tabs 04/16/24 07/17/24 Rx release duloxetine 60 mg capsule,delayed 60 mg PO BID #180 caps 04/23/24 07/17/24 Rx release latanoprost 0.005 % eye drops 1 drp ophthalmic (eye) QAM #0 mL 05/24/24 07/17/24 Rx acetaminophen 500 mg tablet 500 mg PO Q6H 06/02/24 07/17/24 History (Acetaminophen Extra Strength) ondansetron HCl 4 mg tablet 4 mg PO BID PRN nausea and vomiting 06/02/24 07/17/24 History insulin glargine 100 unit/mL (3 See Rx Instructions subcut BID 06/07/24 07/17/24 History mL) subcutaneous pen (Lantus Solostar U-100 Insulin) gabapentin 800 mg tablet 800 mg PO TID #270 tabs 06/28/24 07/17/24 Rx tramadol 50 mg tablet 50 mg PO QID PRN pain #120 tabs 07/13/24 07/17/24 Rx aspirin 81 mg tablet,delayed 81 mg PO DAILY 07/14/24 07/17/24 History release glimepiride 1 mg tablet 2 mg PO BID 07/14/24 07/17/24 History Patient History Medical History TAYLOR (acute kidney injury) Lumbar spinal stenosis Left lumbar radiculopathy Orthostatic hypotension Hyperkalemia Acute alteration in mental status Foreign body of right heel Syncope and collapse happened once in 2020 Hx of squamous cell carcinoma Pulmonary embolism per "he never had one, thinks they ruled this out at one point in time" PTSD (post-traumatic stress disorder) PAD (peripheral artery disease) Orthostatic hypotension happens sometimes Hip pain, left ongoing, radiates down to foot Lumbosacral radiculopathy at S1 Hyperlipidemia Generalized anxiety disorder Diabetes mellitus, type 2 per "not well controlled" Depression CKD (chronic kidney disease) unsure of stage Chronic low back pain Chronic anemia Cervicalgia hx, no current issues Neuropathy Carotid artery stenosis Cardiomyopathy Biventricular cardiac pacemaker in situ Asthma with COPD daily and prn inh Ascending aortic aneurysm monitoring currently; f/u dr. segura, [facility] [place] Hx-TIA (transient ischemic attack) 2019, slurred speech and confusion, brought to [facility]>no residual symtoms History of COVID-19 2019, tested thru PCP, not hosp; mild symptoms-diarrhea, cold symptoms>resolved Chronic bronchitis Leukocytosis hx CARTER (dyspnea on exertion) chronic Bicuspid aortic valve replaced with bioprosthetic valve Dementia "mild" BPH (benign prostatic hyperplasia) HTN (hypertension), benign CAD (coronary artery disease) Myocardial infarction 2011, SOB w/chest tightness and pain into shoulder and jaw, [facility], had cardiac cath w/2 stents Surgical History Hx of squamous cell carcinoma excision hand S/P cardiac pacemaker procedure History of back surgery x2, 05/10/2020 Grade 2 view with Mac 3 blade; both lower back History of tonsillectomy History of repair of rotator cuff right S/P right knee surgery H/O endoscopic retrograde cholangiopancreatography History of colonoscopy Hx of cholecystectomy H/O cardiac catheterization ~2001, SOB w/chest tightness, [facility], x2 stents; 2002, SOB w/chest tightness, [place], x2; 2003, SOB w/chest tightness, [place], x1 stent; 2004, SOB w/chest tightness, [place], x1 stent; 2009, SOB w/chest tightness, [place], x2 stents; 2011, SOB w/chest tightness, [facility], x1 stent; 2013, SOB w/chest tightness, x2 stents, fork; 2015, SOB w/chest tightness, [facility], x1 stent; 2017, SOB w/chest tightness, x2 stents; 2020, SOB w/chest tightness, [facility], x4 stents; f/u S/P aortic valve replacement 2011, [facility]; f/u dr. segura Family History Sister Anxiety Brother Alcohol abuse Father Cardiac disorder Myocardial infarction Mother Depression Kidney disease Lung disease Stroke Other Family history non-contributory Denies family history of Ovarian cancer Prostate cancer Breast cancer Colorectal cancer Social History Smoking Status: Former smoker Tobacco Type: Smokeless Tobacco (Dip or Chew) Age Started Using Tobacco: 16; Age Quit Using Tobacco: 64; packs per day: 2; Cigarettes Per Day: maybe 5-10 cigarettes per month; Second Hand Exposure: No; Do You Dip or Chew Tobacco: Yes; Hx Alcohol Use: Yes Alcohol type: beer Hx Substance Use: No Preferred Language: Romanian Communication Ability: Effective Visual Impairment: Limited Hearing Ability: Use of Hearing Aid [employer] Required: No Beliefs That Will Affect Care: None marital status: Current Living Situation: Spouse Current Living Situation Comment: 1 story home, 2 steps to enter home Other Information That Helps Us Care for You: No Feels Safe at Home: Yes Safety Concerns: Feels Safe At This Time Childhood Exposure to Second-Hand Smoke: Yes Seatbelt Use: always Sunscreen Use: Yes Assistive Devices: Cane, Walker and Wheelchair Exam (Neuro) Physical Exam: HEENT: normocephalic grossly Neuro: Mental: AOx4, fluent speech, normal comprehension, no apraxia, no L/R confusion, no neglect CN: Full EOM, symmetric face, Motor: No abnormal movements, normal tone, 4+/5 proximally b/l, 4+/5 distally b/l dorsiflexion and plantar flexion. Sens: diffuse reduction to touch b/l lower limbs (chronic in nature from neuropathy) DTR: trace sym b/l ankles. Gait: deferred but pt states he walked to bathroom without problem. Impression: 79 yo male with s/p lumbar seroma drainage for cauda equina syndrome symptoms with much improved overall since the procedure yesterday. His leg strength is much improved per pt and not much bladder issue. Recommendations: -pt doing well and the seroma drainage a ppears to be working well and clinically doing well. i do not see the need for EMG urgently at this point. routine outpt EMG maybe if he has ongoing issues. EMG will not change overall management. continue tx as now. not much to add from neurology. call again if new question. Chart reviewed I have spent more than 50% educating patient about potential diagnosis and neurological evaluation and coordinating care with patient's treatment team. Total time spent (including chart review and coordination of care): 50 min (this includes chart review). Results & Data Vital Signs (Past 12 Hours) Vital Signs Temp Pulse Resp BP Pulse Ox O2 Del Method 07/19/24 07:22 36.7 C 74 15 154/62 H 95 Room Air 07/19/24 03:15 36.9 C 78 18 132/63 95 Room Air 07/18/24 22:56 36.8 C 78 18 110/48 L 94 Room Air PG Care Time/CCT Total # of Minutes Spent Total Time Spent with Patient: Total time spent is greater than 50% in coordination of care (as documented) at patient's floor/unit and/or counseling patient: Coding Level of Care Code 96267 IN/OBS CONSULT LVL 3,45M Diagnoses Seroma of musculoskeletal structure after musculoskeletal system procedure M96.842
--- NOTE | 2024-07-19 10:19 | Orthopedic Progress Note ---
Date of Service July 19, 2024 Assessment & Plan (1) Seroma of musculoskeletal structure after musculoskeletal system procedure: Plan: Patient is progressing appropriately. From an orthopedic standpoint is safe for him to go home. We will maintain the drain at discharge. I will him follow-up in our office next week for evaluation and drain removal. Admission and Anticipated Discharge Date Admission Date: July 17, 2024 Subjective Patient's back pain is controlled leg symptoms markedly improved. He tolerated physical therapy well yesterday. Physical Exam Physical Exam: Patient is very comfortable. Discussed when to testing. Results & Data Vital Signs (Past 12 Hours) Vital Signs Temp Pulse Resp BP Pulse Ox O2 Del Method 07/19/24 07:22 36.7 C 74 15 154/62 H 95 Room Air 07/19/24 03:15 36.9 C 78 18 132/63 95 Room Air 07/18/24 22:56 36.8 C 78 18 110/48 L 94 Room Air
--- NOTE | 2024-07-19 11:33 | Discharge Summary ---
Discharge Summary Date of Service July 19, 2024 Principal Dx & Hospital Course #1 = Principal Diagnosis (1) Cauda equina syndrome: 79-year-old male with past medical history of lumbar radiculopathy s/p operative intervention with Dr. Brown 05/18/2024 who presented with bilateral leg weakness and L>R leg pain as well as increasing difficulties with bowel and bladder incontinence - MRI showed a large seroma compressing posterior thecal sac. consulted ortho spine Dr Brown underwent irrigation and drainage of postoperative seroma 07/18 plavix held - resume when ok with Dr. Brown. Continue aspirin 81 mg daily lumbar drain still in place - he will follow up early next week with ortho spine for removal neurologist consulted for possible peripheral neuropathy - did not recommend any further testing right now, can get outpatient EMG/NCS if symptoms persist leg pain and weakness seems to have improved continue outpatient PT discussed plan of care with Dr. 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 Recommended reducing to 300 mg tid which is max recommended dose for his renal function. He will discuss with his PCP. 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: H/o DMT2 - At home regimen Glimepiride 2mg BID, Lantus - resume - Most recent A1C 7.8% (07/14/2024) (4) Asthma with COPD: Stable, per patient; no recent exacerbations, no current symptoms - Continue control inhaler, Bronchodilators as needed (5) CAD (coronary artery disease): Cath 01/15/2021 w/o stent placement, multiple stents placed; PCI most recently in 2019 - Aspirin, Plavix (held), atorvastatin, coreg - No ischemic symptoms currently - Echo 05/17/2024- ventricular systolic function normal, no regional wall normalities, moderate LVH, EF 60 to 65%, prosthetic aortic valve seated well, gradient normal for prosthetic aortic valve, mild MR - Pacer upgraded to BiV pacer 2020; interrogation 06/2024 normal - Bioprosthetic AV replacement (6) Stage 3b chronic kidney disease: H/o CKD stage IIIb, baseline Cr 1.2-1.59 - Cr 1.53 on admission and improved to 1.3 - mild hyperkalemia 07/18, got one dose of lokelma, resolved 4.8 today. Not on meds that will cause hyperkalemia Plan HLD- Atorvastatin Anxiety- Buspirone GERD- pantoprazole Dementia- Namenda, Aricept PTSD- [facility], Lamictal, duloxetine BPH- Finasteride, alfuzosin Notes For Next Care Provider recommended reducing gabapentin to 300 mg tid which is max recommended dose for his renal function, also pain seems improved with seroma evacuation. He is not open to changing dose right now but will discuss with PCP, he did well on 300 mg tid in hospital Medication Changes From Visit plavix held until ok to resume per Dr. Brown Admission HPI Per Admitting Provider 79-year-old male presenting 2 months postop from orthopedic surgery by Dr. Brown, sent to ED for large seroma; complaining of leg pain and trouble walking. ED course: CBC-RBC 3.09, H&H 9.2/28.8, MCH 31.9, RDW 73.2, neutrophil predominance without leukocytosis-7.46; PT/INR WNL; CMP creatinine 1.53, BUN 31, BUN/creatinine ratio 20.3, glucose 179; calcium 8.9; magnesium 1.7; lumbar spine MRI from 07/13/2024 revealing postop changes from posterior decompression interbody annette and screw fusion extending from L2-S1, interval removal of L3 pedicle screws with L4-L5 and L5-S1 laminectomy, postoperative fluid collection posterior to the L5 vertebral body approximately 5 cm, compressing posterior thecal sac sudden severe central canal stenosis at L5-S1, moderate narrowing paravertebral edema L5-S1 likely degenerative/reactive, additional discogenic degeneration generally unchanged. Provided with Dilaudid in ED. Patient is 79-year-old male PMHx CKD, COPD, BPH, myelodysplastic syndrome, HTN, HLD, T2DM, PAD, and recent surgical intervention on 05/18/24 to the spine performed by Dr. Brown for underlying diagnosis of lumbar radiculopathy. Presenting for worsening symptoms in his bilateral legs since surgery in May. States that ever since his surgery, he has felt that his legs are "deteriorating" and that he is losing his muscle in his legs. Did go to 5 days of inpatient physical therapy, but left because he was only receiving 0.5 hours of therapy per day. Notes that his legs are just continuing to weaken but that his pain is overall well-controlled. Denies complete bowel or bladder incontinence but does admit that it is sometimes difficult to control his bowel. Did go PCP 07/14 after MRI completed 07/13 which revealed postoperative fluid collection posterior to the L5 vertebral body measuring 5 cm compressing the posterior thecal sac resulting in severe central canal stenosis of L5-S1. Denies chest pain, shortness of breath, palpitations, abdominal pain, N/V/D/C, worsening numbness/tingling, or syncopal episodes. Took all a.m. medications. Please see Dr. Nolan's attestation for adjustments/additions to treatment plan. Discharge Exam PHYSICAL EXAMINATION Last 24h vital signs reviewed, see documentation in flowsheet General: comfortable appearing, no distress, sitting up in the chair HEENT: Normocephalic, atraumatic, pupils round and equal, sclerae anicteric, no conjunctival injection, moist mucus membranes Lungs: Normal respiratory effort. Clear to auscultation bilaterally. No RRW Heart: Regular rate and rhythm, no murmurs. No JVD Abdomen: Soft, nontender, nondistended. Bowel sounds present. Unchanged: Lumbar drain present min serosanguineous drainage, Lspine area with surgical dressing cdi Extremities: Warm, dry, well-perfused. No extremity edema. Neuro: Alert and oriented x 4, face symmetric, bilateral LE weakness improved now /5 Psych: Normal affect and behavior Discharge Plan Discharge Items Patient Disposition: Home - Self-Care Reason For Visit: CAUDA EQUINA Discharge Diagnosis: Postoperative seroma of lumbar spine Activity: Resume your previous activity Weightbearing: Full weightbearing Non-emergency contact: Primary Care Provider and Surgeon Call non-emergency contact if: you have any medication questions, your symptoms worsen and you have a fever Follow-up/Referrals: Leandro Rodrigues MD [Primary Care Provider] - Shaheed Brown DO [Surgeon] - Diet: Carb Consistent or DM2 Addtl Attending Provider Instructions: You were treated for seroma (fluid collection) in the area of your previous back surgery. This seems to have been causing increased leg pain and weakness Follow up with Dr. Brown's office early next week for drain removal Empty drain once bulb is full and record the output The neurologist did not recommend any additional testing at this time, but if leg pain symptoms persist over time you may benefit from outpatient EMG/nerve conduction study. I recommend decreasing your gabapentin to 300 mg three times a day - this is the maximum recommended dose for your current kidney function. I am concerned that the higher dose is not providing much if any benefit with significantly increased risk of side effects (the common side effects include sleepiness, confusion/mental status changes, unsteadiness/falls, leg swelling and tremors) Resume your outpatient physical therapy It was a pleasure taking care of you in the hospital Deneen Stuart MD Pending Studies at Discharge: No Stand-Alone Forms: My [facility] ThromboVision, Smoking Cessation Medications and DC Order Prescriptions: Continued memantine 5 mg tablet 5 mg PO BID Qty: 180 3RF pantoprazole 40 mg tablet,delayed release (DR/EC) 40 mg PO BID Qty: 60 5RF ondansetron HCl 4 mg tablet 4 mg PO BID PRN (Reason: nausea and vomiting) Patient Comments: CONFIRMED [facility] MED LIST AND W/ PT'S ON 06/02/24 acetaminophen [Acetaminophen Extra Strength] 500 mg tablet 500 mg PO Q6H Patient Comments: CONFIRMED [facility] MED LIST AND W/ PT'S ON 06/02/24 insulin glargine [Lantus Solostar U-100 Insulin] 100 unit/mL (3 mL) insulin pen See Rx Instructions subcut BID Rx Instructions: 20 units in the AM gabapentin 800 mg tablet 800 mg PO TID Qty: 270 3RF tramadol 50 mg tablet 50 mg PO QID PRN (Reason: pain) Qty: 120 0RF aspirin 81 mg tablet,delayed release (DR/EC) 81 mg PO DAILY nitroglycerin [Nitrostat] 0.4 mg tablet, sublingual 0.4 mg Sublingual Q5M PRN (Reason: Chest Pain) Qty: 30 5RF Rx Instructions: place 1 tab under the tongue every 5 min. for up to 3 doses as needed for chest pain call 911 if pain persists cetirizine 10 mg tablet 10 mg PO DAILY PRN (Reason: allergy symptoms) Qty: 30 0RF duloxetine 60 mg capsule,delayed release(DR/EC) 60 mg PO BID Qty: 180 3RF buspirone 30 mg Tablet 30 mg PO TID finasteride 5 mg Tablet 5 mg PO QAM epinephrine [EpiPen] 0.3 mg/0.3 mL Auto-Injector 0.3 mg IM Q3H PRN (Reason: Allergy Symptoms) lamotrigine 200 mg Tablet 200 mg PO HS atorvastatin [Lipitor] 40 mg Tablet 40 mg PO HS donepezil 10 mg Tablet 10 mg PO QAM alfuzosin 10 mg tablet extended release 24 hr 10 mg PO HS Hold Instructions: Resume on 06/21/24. held for orthostatic hypotension, resume when BP tolerates Rx Instructions: at bedtime for prostate symptoms. albuterol sulfate 90 mcg/actuation Hfa Aerosol Inhaler 2 puff INHALATION Q4H PRN (Reason: Shortness Of Breath Or Wheezing) Breztri Aerosphere 160-9-4.8 mcg/actuation HFA aerosol inhaler 2 inh inhalation QAM carvedilol 3.125 mg tablet 3.125 mg PO BID Hold Instructions: Resume on 06/21/24. held for orthostatic hypotension, resume when BP tolerates Rx Instructions: must administer with a meal/food mupirocin 2 % ointment 1 applic topical TID Qty: 15 0RF Rx Instructions: Apply a thin layer to the affected area 3 times daily. The area may be covered with gauze dressing. Continue for 1-2 weeks. timolol maleate (PF) 0.5 % Dropperette 1 drp OPHTHALMIC (EYE) HS dorzolamide (PF) 2 % Drops 1 drp OPHTHALMIC (EYE) HS glimepiride 1 mg tablet 2 mg PO BID latanoprost 0.005 % Drops 1 drp ophthalmic (eye) QAM Qty: 0 0RF Held clopidogrel 75 mg tablet 75 mg PO HS Hold Instructions: Resume on 07/24/24. resume when ok with Dr. Brown Discharge Orders: Discharge Order (Routine); Ordered 07/19/24 Ordered By: Deneen Stuart Admission Data Admit Date/Time: 07/17/24 13:47 Attending Provider: Robert Nolan Admit Provider: Robert Nolan Primary Care Provider: Leandro Rodrigues Other Providers: Robert Nolan; Shaheed Brown; [facility]; [facility] Stay Data Consultations 07/17/24 12:19 ED Decision to Admit Stat 07/17/24 13:52 Consult Orthopedic Surgery Routine 07/19/24 05:58 Consult Neurology Routine Procedures Performed Operation Date: 07/18/24 07:45 Actual Procedures p Evacuation of Seroma(Not Applicable) - Shaheed Brown, DO Pending Results Patient Have Any Pending Studies at Discharge: No Discharge Instructions Given to Patient (Per Discharging Provider) You were treated for seroma (fluid collection) in the area of your previous back surgery. This seems to have been causing increased leg pain and weakness Follow up with Dr. Brown's office early next week for drain removal Empty drain once bulb is full and record the output The neurologist did not recommend any additional testing at this time, but if leg pain symptoms persist over time you may benefit from outpatient EMG/nerve conduction study. I recommend decreasing your gabapentin to 300 mg three times a day - this is the maximum recommended dose for your current kidney function. 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
[2024-07-19 12:54] VITALS: PULSE 68
== END 2024-07-19 13:40 | disposition home or self-care (01) | DRG 908 ==
LOC: ED 11:05 → 3N 13:47

== ENCOUNTER 2024-12-17 20:27 | Inpatient (IN) ==
--- NOTE | 2024-12-17 20:51 | Emergency Department Note ---
Impression & Plan Acute confusion, Sepsis, Pneumonia, Leukocytosis, TAYLOR (acute kidney injury), Hypomagnesemia ED Provider Note HISTORY OF PRESENT ILLNESS: Patient is a 79-year-old male presenting with lethargy and confusion. Daughter provides most of history. Reports that around suppertime today, the patient was noted to have some significant confusion. Daughter reports that the patient did not remember where certain family members were and was stating that his great- grandchildren were running around the house when they were not. He was reportedly diagnosed with pneumonia and started on Z-Servando by his primary care provider 3 days ago. He has been taking [id number] Vicks medication to help with his cough. Daughter reports his cough is significantly better today. He had been having a productive cough and shortness of breath over the last few days prior to initiation of the Z-Servando. Patient denies any chest pain or shortness of breath. He does not remember the events of this evening. Denies any recent falls or head injuries. Denies any numbness, tingling or weakness in extremities. ROS: as above PHYSICAL EXAM: Constitutional: Patient appears in no acute distress. HENT: Head: Normocephalic and atraumatic. Eyes: EOMI, PERRL Mouth/Throat: Mucous membranes moist. Neck: Trachea midline. Neck supple. Cardiovascular: Paced rhythm. No murmurs, rubs or gallops. Intact distal pulses. Pulmonary/Chest: No respiratory distress. Breath sounds clear and equal bilaterally. No wheezes or rales. Abdominal: Abdomen soft, no tenderness, rebound or guarding. Musculoskeletal: No edema, tenderness or deformity noted. Neurological: Alert and keenly responsive. Facies symmetric. Able to raise eyebrows, close eyes, smile, puff mouth, stick out tongue, move tongue left and right and raise palate symmetrically. Able to shrug shoulders. PERRLA. SILT to forehead below eye and at jawline. Can hear soft noise bilaterally. Strength 5/5 in bilateral upper and lower extremities. SILT throughout bilateral upper and lower extremities. MDM: - Vitals signs stable. - History obtained via patient's daughter, given patient's confusion. History as above. - Chronic conditions affecting care: cardiomyopathy (S/p pacemaker); CKD; HTN; HLD; DM-2 - Differential diagnoses include, but are not limited to: Pneumonia; UTI; CVA; intracranial hemorrhage; ACS; electrolyte abnormality - Order placed for continuous cardiac monitoring. At this time, monitor showed rate of 97 bpm with paced rhythm, per my interpretation. - External medical records reviewed. Primary care visit note dated 12/15/2024 was reviewed. Patient was seen for a cough for the last 2 to 3 days and rhonchi in the right lung base. He was prescribed azithromycin and Trelegy. - EKG image interpreted by myself showed paced rhythm. Rate 67 bpm. - Laboratory workup interpreted by myself showed leukocytosis (WBC 17.48) with neutrophil predominance; normal PT/INR; slight hyponatremia (Na 132); TAYLOR (Cr 1.60); hyperglycemia (glucose 200); hypomagnesemia (Mg 1.6); elevated total bilirubin (1.3) with normal AST/ALT; normal troponin; normal TSH; normal procalcitonin; normal lactate - Blood cultures obtained - UA negative for infection - CXR image reviewed myself shows right lower lobe pneumonia, per my interpretation. - COVID/flu/RSV negative - CT head wo contrast negative for acute intracranial pathology. - Patient given 2L NS in ER. Patient's sepsis fluid volume calculation based on ideal body weight is 2181.60 mL. - Given 2g IV rocephin for antibiotic coverage. Given 1g IV magnesium for electrolyte replacement - Given patient's leukocytosis, HR >90 and presence of pneumonia, he meets sepsis criteria. - Discussion was had with outsole caser about patient's case and need for admission - Hospitalist, Dr. Rivers, consulted for admission - [facility] ASSESSMENT AND PLAN: Diagnosis: Acute confusion; sepsis; pneumonia; leukocytosis; hypomagnesemia; TAYLOR Plan: Admit Past Med/Surg History Problem List (Updated 12/17/24 @ 23:00 by Mckenna Bhakta MD) Hypomagnesemia (Acute) TAYLOR (acute kidney injury) (Acute) Leukocytosis (Acute) Pneumonia (Acute) Sepsis (Acute) Acute confusion (Acute) Rhonchi at right lung base Cough Bilateral leg pain Seroma of musculoskeletal structure after musculoskeletal system procedure (Acute) Acute left lumbar radiculopathy (Acute) Cauda equina syndrome Urinary hesitancy Fusion of spine, lumbar region Acute blood loss anemia Gastric ulcer Myelodysplasia (myelodysplastic syndrome) Actinic keratoses History of pulmonary embolism Hip pain, right Heme positive stool Anemia (Acute) Cellulitis of leg, right (Acute) BPH w urinary obs/LUTS Ankle edema Anemia Neuropathic pain Peripheral arterial disease Lumbosacral radiculopathy at S1 Right foot pain Encounter for pre-operative examination Hyperproteinemia Olecranon bursitis, right elbow resolved Lightheadedness resolved Colon cancer screening Changing skin lesion removed from hand Scattered rhonchi of right lung Chronic low back pain Chronic anemia Diarrhea ongoing Medicare annual wellness visit, subsequent Olecranon bursitis, left elbow resolved Folate deficiency Vitamin B 12 deficiency Nonallergic rhinitis Allergic rhinitis Cervicalgia Paraproteinemia Chronic low back pain Proteinuria Nocturnal enuresis 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 Biventricular cardiac pacemaker in situ Stage 3b chronic kidney disease Chronic anemia Syncope and collapse happened once in 2020 Dementia Dyspnea on exertion Cardiomyopathy CAD, multiple vessel S/P coronary artery stent placement ~2001, SOB w/chest tightness, [facility], x2 stents; 2002, SOB w/chest tightness, [place], x2; 2003, SOB w/chest tightness, [place], x1 stent; 2004, SOB w/chest tightness, [place], x1 stent; 2009, SOB w/chest tightness, [place], x2 stents; 2011, SOB w/chest tightness, [facility], x1 stent; 2013, SOB w/chest tightness, x2 stents, [place]; 2016, SOB w/chest tightness, [place], x1 stent; 2018, SOB w/chest tightness, x2 stents; 2019, SOB w/chest tightness, [facility], x4 stents; f/u dr. segura Squamous cell skin cancer Aneurysm of ascending aorta (Acute) monitoring currently; f/u dr. segura, [facility] Asthma with COPD (Acute) daily inh and prn inhaler Carotid artery stenosis (Acute) Generalized anxiety disorder (Acute) History of TIA (transient ischemic attack) (Acute) Hyperlipidemia (Acute) Benign essential hypertension (Acute) Myelodysplastic syndrome (Acute) PTSD (post-traumatic stress disorder) (Acute) S/P aortic valve replacement with bioprosthetic valve (Acute) S/P laparoscopic cholecystectomy (Acute) Depression BPH (benign prostatic hyperplasia) COPD (chronic obstructive pulmonary disease) CKD (chronic kidney disease) (Acute) unsure of stage Pacemaker 2011, Placed after AVR due to complete heart block, [facility]; [employer] Medical History TAYLOR (acute kidney injury) Lumbar spinal stenosis Left lumbar radiculopathy Orthostatic hypotension Hyperkalemia Acute alteration in mental status Foreign body of right heel Syncope and collapse Hx of squamous cell carcinoma Pulmonary embolism PTSD (post-traumatic stress disorder) PAD (peripheral artery disease) Orthostatic hypotension Hip pain, left Lumbosacral radiculopathy at S1 Hyperlipidemia Generalized anxiety disorder Diabetes mellitus, type 2 Depression CKD (chronic kidney disease) Chronic low back pain Chronic anemia Cervicalgia Neuropathy Carotid artery stenosis Cardiomyopathy Biventricular cardiac pacemaker in situ Asthma with COPD Ascending aortic aneurysm Hx-TIA (transient ischemic attack) History of COVID-19 Chronic bronchitis Leukocytosis CARTER (dyspnea on exertion) Bicuspid aortic valve Dementia BPH (benign prostatic hyperplasia) HTN (hypertension), benign CAD (coronary artery disease) Myocardial infarction Surgical History Hx of squamous cell carcinoma excision S/P cardiac pacemaker procedure History of back surgery History of tonsillectomy History of repair of rotator cuff S/P right knee surgery H/O endoscopic retrograde cholangiopancreatography History of colonoscopy Hx of cholecystectomy H/O cardiac catheterization S/P aortic valve replacement Family History Sister Anxiety Brother Alcohol abuse Father Cardiac disorder Myocardial infarction Mother Depression Kidney disease Lung disease Stroke Other Family history non-contributory Denies family history of Ovarian cancer Prostate cancer Breast cancer Colorectal cancer Social History Smoking Status: Current some day smoker Tobacco Type: Cigarettes Age Started Using Tobacco: 16; Age Quit Using Tobacco: 64; packs per day: 2; Cigarettes Per Day: maybe 5-10 cigarettes per month; Second Hand Exposure: No; Do You Dip or Chew Tobacco: Yes; Hx Alcohol Use: Yes Alcohol type: beer Hx Substance Use: No Preferred Language: Telugu Communication Ability: Effective Visual Impairment: Limited Hearing Ability: Use of Hearing Aid Fruit Coordinator Required: No Beliefs That Will Affect Care: None marital status: Current Living Situation: Spouse Current Living Situation Comment: 1 story home, 2 steps to enter home Feels Safe at Home: Yes Childhood Exposure to Second-Hand Smoke: Yes Seatbelt Use: always Sunscreen Use: Yes Assistive Devices: Cane, Walker and Wheelchair Allergies Allergies Allergy/AdvReac Type Severity Reaction Status Date / Time bee venom protein (honey bee) Allergy Severe SWELLING Verified 12/17/24 22:15 Sulfa (Sulfonamide Allergy Intermediate "SULFA": Verified 12/17/24 22:15 Antibiotics) RASH lisinopril Allergy Unknown CAN'T Verified 12/17/24 22:15 REMEMBER Penicillins Allergy Unknown CAN'T Verified 12/17/24 22:15 REMEMBER meloxicam AdvReac Severe renal Verified 12/17/24 22:15 failure codeine AdvReac Intermediate HALLUCINATI Verified 12/17/24 22:15 NG Home Meds Home Medications Medication Instructions Recorded Confirmed epinephrine 0.3 mg/0.3 mL 0.3 mg IM Q3H PRN Allergy Symptoms 10/21/18 12/17/24 injection, auto-injector (EpiPen) finasteride 5 mg tablet 5 mg PO QAM 10/21/18 12/17/24 atorvastatin 40 mg tablet (Lipitor) 40 mg PO HS 10/22/18 12/17/24 donepezil 10 mg tablet 10 mg PO QAM 10/22/18 12/17/24 lamotrigine 200 mg tablet 200 mg PO HS 10/22/18 12/17/24 buspirone 30 mg tablet 30 mg PO TID 07/21/20 12/17/24 alfuzosin 10 mg tablet,extended 10 mg PO HS 03/21/24 12/17/24 release 24 hr carvedilol 3.125 mg tablet 3.125 mg PO BID 03/21/24 12/17/24 dorzolamide (PF) 2 % (PF) eye drops 1 drp ophthalmic (eye) HS 04/05/24 12/17/24 timolol maleate (PF) 0.5 % eye 1 drp ophthalmic (eye) HS 04/05/24 12/17/24 drops in a dropperette acetaminophen 500 mg tablet 500 - 1,000 mg PO Q6H PRN 06/02/24 12/17/24 (Acetaminophen Extra Strength) PAIN/FEVER ondansetron HCl 4 mg tablet 4 mg PO BID PRN nausea and vomiting 06/02/24 12/17/24 aspirin 81 mg tablet,delayed 81 mg PO DAILY 07/14/24 12/17/24 release glimepiride 1 mg tablet 2 mg PO BID 07/14/24 12/17/24 clopidogrel 75 mg tablet 75 mg PO DAILY 08/17/24 12/17/24 insulin glargine 100 unit/mL (3 See Rx Instructions subcut BID 08/17/24 12/17/24 mL) subcutaneous pen (Lantus Solostar U-100 Insulin) diclofenac sodium 1 % topical gel 2 g topical QID 08/28/24 12/17/24 Previous Rx's Medication Instructions Recorded nitroglycerin 0.4 mg sublingual 0.4 mg sublingual Q5M PRN Chest 08/21/20 tablet (Nitrostat) Pain #30 tabs memantine 5 mg tablet 5 mg PO BID #180 tabs 11/05/21 cetirizine 10 mg tablet 10 mg PO DAILY PRN allergy 11/18/21 symptoms #30 tabs mupirocin 2 % topical ointment 1 applic topical TID #15 grams 03/23/24 pantoprazole 40 mg tablet,delayed 40 mg PO BID #60 tabs 04/16/24 release duloxetine 60 mg capsule,delayed 60 mg PO BID #180 caps 04/23/24 release latanoprost 0.005 % eye drops 1 drp ophthalmic (eye) QAM #0 mL 05/24/24 gabapentin 800 mg tablet 800 mg PO TID #270 tabs 06/28/24 ferrous gluconate 324 mg (37.5 mg 324 mg PO DAILY #30 tabs 07/21/24 iron) tablet trazodone 50 mg tablet 50 mg PO .QHS #30 tabs 07/31/24 methocarbamol 750 mg tablet 750 mg PO TID PRN muscle spasm #90 10/16/24 tabs tramadol 50 mg tablet 50 mg PO QID PRN pain #120 tabs 10/24/24 albuterol sulfate 90 mcg/actuation 2 puff inhalation Q4H PRN 11/03/24 aerosol inhaler Shortness Of Breath Or Wheezing #8.5 grams azithromycin 250 mg tablet 250 mg PO .COMPLEX cough 5 days #6 12/15/24 tabs fluticasone fur. 200 mcg-umeclid 1 inh inhalation DAILY #60 ea 12/15/24 62.5 mcg-vilant 25 mcg inhalat.powder (Trelegy Ellipta) Results & Data (ED) Vital Signs Vital Signs - 24 hr 12/17/24 20:28 12/17/24 20:38 12/17/24 20:41 Temperature 36.8 C 37.2 C Temperature Source Temporal Artery Scan Oral Pulse Rate 91 H 65 Pulse Rate [Apical] 92 H Pulse Rhythm Regular Pulse Strength Normal Respiratory Rate 20 20 Respiratory Effort / Characteristics Non-Labored Spontaneous Non-Labored Spontaneous Respiratory Depth Normal Respiratory Pattern Regular Regular Blood Pressure 107/68 Blood Pressure [Right Arm] 118/64 Blood Pressure Mean 81 Blood Pressure Mean [Right Arm] 82 Blood Pressure Position Sitting Blood Pressure Position [Right Arm] Lying Pulse Oximetry 94 93 Oxygen Delivery Method Room Air Room Air Sepsis Recent Fever Within 48 Hours No Sepsis New/Unexplained Change in Mental Status No Sepsis Action Taken by Nursing No Action Required 12/17/24 21:24 12/17/24 21:30 12/17/24 22:11 Temperature Temperature Source Pulse Rate 85 Pulse Rate [Apical] 68 97 H Pulse Rhythm Regular Pulse Strength Respiratory Rate 19 16 20 Respiratory Effort / Characteristics Non-Labored Spontaneous Non-Labored Spontaneous Respiratory Depth Respiratory Pattern Blood Pressure Blood Pressure [Right Arm] 122/70 124/94 Blood Pressure Mean Blood Pressure Mean [Right Arm] 87 104 Blood Pressure Position Blood Pressure Position [Right Arm] Lying Lying Pulse Oximetry 94 92 95 Oxygen Delivery Method Room Air Room Air Room Air Sepsis Recent Fever Within 48 Hours Sepsis New/Unexplained Change in Mental Status Sepsis Action Taken by Nursing 12/17/24 23:07 Temperature Temperature Source Pulse Rate Pulse Rate [Apical] 71 Pulse Rhythm Pulse Strength Respiratory Rate 19 Respiratory Effort / Characteristics Non-Labored Spontaneous Respiratory Depth Respiratory Pattern Blood Pressure Blood Pressure [Right Arm] 98/72 L Blood Pressure Mean Blood Pressure Mean [Right Arm] 80 Blood Pressure Position Blood Pressure Position [Right Arm] Pulse Oximetry 94 Oxygen Delivery Method Room Air Sepsis Recent Fever Within 48 Hours Sepsis New/Unexplained Change in Mental Status Sepsis Action Taken by Nursing Laboratory Data 12/17/24 20:46 12/17/24 20:46 Lab Results 12/17/24 12/17/24 12/17/24 Range/Units 20:46 21:58 22:57 WBC 17.48 H (4.8-10.8) K/ul RBC 3.26 L (4.70-6.10) M/uL Hgb 10.2 L (14.0-18.0) g/dl Hct 31.0 L (42.0-52.0) % MCV 95.1 (80.0-100.0) fL MCH 31.3 (25.0-34.0) pg MCHC 32.9 (32.0-36.0) g/dL RDW Std Deviation 78.2 H (36.4-46.3) fL RDW Coeff of Linda 22.5 H (11.5-14.5) % Plt Count 334 (130-400) K/uL MPV 11.1 (9.4-12.4) fL Immature Gran % (Auto) 0.3 % Neut % (Auto) 85.3 % Lymph % (Auto) 8.9 % Crawford % (Auto) 5.1 % Eos % (Auto) 0.1 % Baso % (Auto) 0.3 % Neut # (Auto) 14.90 H (1.40-6.50) K/uL Lymph # (Auto) 1.56 (1.20-3.40) K/uL Crawford # (Auto) 0.90 H (0.11-0.59) K/uL Eos # (Auto) 0.01 (0.00-0.50) K/uL Baso # (Auto) 0.05 (0.00-0.20) K/uL Immature Gran # (Auto) 0.06 (0.01-0.20) K/uL Anisocytosis Present Target Cells 1+ PT 10.9 (9.0-12.0) Seconds INR 1.0 (0.9-1.1) Sodium 132 L (136-145) mmol/L Potassium 5.0 (3.5-5.1) mmol/L Chloride 98 (98-107) mmol/L Carbon Dioxide 27 (21-32) mmol/L Anion Gap 7 (3-11) BUN 28 H (6-23) mg/dl Creatinine 1.60 H (0.6-1.4) mg/dl Est Cr Clr Drug Dosing Not Reportable eGFR 43.83 BUN/Creatinine Ratio 17.5 (10-20) Glucose 200 H (70-99(Fasting)) mg/dl Lactate 1.2 (0.4-2.0) mmol/L Calcium 9.1 (8.6-10.3) mg/dl Magnesium 1.6 L (1.7-2.4) mg/dl Total Bilirubin 1.3 H (0.2-1.0) mg/dl AST 13 (13-39) U/L ALT 9 (7-52) U/L Alkaline Phosphatase 116 H (34-104) U/L Troponin I High Sens 15.1 (0-20) pg/ml Total Protein 8.7 H (6.0-8.3) gm/dl Albumin 4.2 (3.4-5.0) gm/dl Globulin 4.5 H (2.5-4.0) gm/dl Albumin/Globulin Ratio 0.9 (0.9-2) Procalcitonin 0.29 (0-0.5) ng/ml TSH 0.897 (0.300-4.500) uIu/ml Urine Color Dark Yellow Urine Appearance Clear (Clear) Urine pH 5.0 (4.5-7.5) Ur Specific Sarver 1.025 (1.000-1.030) Urine Protein 1+ H (Negative) Urine Glucose (UA) Negative (Negative) Urine Ketones Trace H (Negative) Urine Blood Negative (Negative) Urine Nitrite Negative (Negative) Urine Bilirubin Negative (Negative) Urine Urobilinogen Negative (Negative) Ur Leukocyte Esterase Negative (Negative) Urine WBC (Auto) 0-5 (0-5) /hpf Urine RBC (Auto) 0-2 (0-2) /hpf U Hyaline Cast (Auto) >20 H (0-2) /lpf U Epithel Cells (Auto) 0-2 (0-2) /hpf Urine Bacteria (Auto) None Seen (None Seen) Hyaline Casts Present A (None Presnt) /lpf SARS-CoV-2 (PCR) NEGATIVE (Negative) Influenza Type A (PCR) Negative (Neg) Influenza Type B (PCR) Negative (Neg) RSV (RT-PCR) Negative (Neg) Administered Medications Sodium Chloride (Nss) 2,000 mls @ 999 mls/hr IV .Q2H1M ONE Stop: 12/18/24 00:08 Last Admin: 12/17/24 22:48 Dose: 999 mls/hr Documented By: CDM Discontinued Medications Ceftriaxone Sodium (Rocephin) 2,000 mg in 50 mls @ 100 mls/hr IV NOW STA Stop: 12/17/24 22:37 Last Admin: 12/17/24 22:52 Dose: 100 mls/hr Documented By: BRENDA Discharge Plan Visit Data Chief Complaint: Confusion Stated Complaint: CONFUSION ED Provider: Mckenna Bhakta Discharge Problem: Acute confusion, Sepsis, Pneumonia, Leukocytosis, TAYLOR (acute kidney injury), Hypomagnesemia Condition: Fair Forms Stand Alone Forms: [facility] Prescriptions Prescriptions: No Action memantine 5 mg tablet 5 mg PO BID Qty: 180 3RF pantoprazole 40 mg tablet,delayed release (DR/EC) 40 mg PO BID Qty: 60 5RF ondansetron HCl 4 mg tablet 4 mg PO BID PRN (Reason: nausea and vomiting) Patient Comments: CONFIRMED [facility]V MED LIST AND W/ PT'S ON 06/02/24 acetaminophen [Acetaminophen Extra Strength] 500 mg tablet 500 - 1,000 mg PO Q6H PRN (Reason: PAIN/FEVER) Patient Comments: CONFIRMED [facility]V MED LIST AND W/ PT'S ON 06/02/24 gabapentin 800 mg tablet 800 mg PO TID Qty: 270 3RF aspirin 81 mg tablet,delayed release (DR/EC) 81 mg PO DAILY trazodone 50 mg tablet 50 mg PO .QHS Qty: 30 5RF insulin glargine [Lantus Solostar U-100 Insulin] 100 unit/mL (3 mL) insulin pen See Rx Instructions subcut BID Rx Instructions: 8 units in AM 28 units in PM - per Claudia HARTLEY 08/15 methocarbamol 750 mg tablet 750 mg PO TID PRN (Reason: muscle spasm) Qty: 90 5RF nitroglycerin [Nitrostat] 0.4 mg tablet, sublingual 0.4 mg Sublingual Q5M PRN (Reason: Chest Pain) Qty: 30 5RF Rx Instructions: place 1 tab under the tongue every 5 min. for up to 3 doses as needed for chest pain call 911 if pain persists cetirizine 10 mg tablet 10 mg PO DAILY PRN (Reason: allergy symptoms) Qty: 30 0RF albuterol sulfate 90 mcg/actuation HFA aerosol inhaler 2 puff INHALATION Q4H PRN (Reason: Shortness Of Breath Or Wheezing) Qty: 8.5 2RF duloxetine 60 mg capsule,delayed release(DR/EC) 60 mg PO BID Qty: 180 3RF clopidogrel 75 mg tablet 75 mg PO DAILY azithromycin 250 mg tablet 250 mg PO .COMPLEX MDD 2 5 Days Qty: 6 0RF Rx Instructions: STARTED 12/15/24 FOR 5 DAYS. 250 mg PO Two pills today pill daily for 4 more days.; Trelegy Ellipta 200-62.5-25 mcg blister with device 1 inh inhalation DAILY Qty: 60 2RF diclofenac sodium 1 % gel 2 g topical QID Rx Instructions: apply to single elbow, wrist or hand; for hand includes palm/fingers/back of hand ferrous gluconate 324 mg (37.5 mg iron) tablet 324 mg PO DAILY Qty: 30 5RF tramadol 50 mg tablet 50 mg PO QID PRN (Reason: pain) Qty: 120 0RF buspirone 30 mg Tablet 30 mg PO TID finasteride 5 mg Tablet 5 mg PO QAM epinephrine [EpiPen] 0.3 mg/0.3 mL Auto-Injector 0.3 mg IM Q3H PRN (Reason: Allergy Symptoms) lamotrigine 200 mg Tablet 200 mg PO HS atorvastatin [Lipitor] 40 mg Tablet 40 mg PO HS donepezil 10 mg Tablet 10 mg PO QAM alfuzosin 10 mg tablet extended release 24 hr 10 mg PO HS Hold Instructions: Resume on 06/21/24. held for orthostatic hypotension, resume when BP tolerates Rx Instructions: at bedtime for prostate symptoms. carvedilol 3.125 mg tablet 3.125 mg PO BID Hold Instructions: Resume on 06/21/24. held for orthostatic hypotension, resume when BP tolerates Rx Instructions: must administer with a meal/food mupirocin 2 % ointment 1 applic topical TID Qty: 15 0RF Rx Instructions: Apply a thin layer to the affected area 3 times daily. The area may be covered with gauze dressing. Continue for 1-2 weeks. timolol maleate (PF) 0.5 % Dropperette 1 drp OPHTHALMIC (EYE) HS dorzolamide (PF) 2 % Drops 1 drp OPHTHALMIC (EYE) HS glimepiride 1 mg tablet 2 mg PO BID latanoprost 0.005 % Drops 1 drp ophthalmic (eye) QAM Qty: 0 0RF Referrals Referrals: Leandro Rodrigues MD [Primary Care Provider] -
[2024-12-17 21:43] LABS: Basophils # (auto) 0.05 K/uL (0.00-0.20); Basophils % (auto) 0.3 %; Eosinophils # (auto) 0.01 K/uL (0.00-0.50); Eosinophils % (auto) 0.1 %; Hemoglobin 10.2 g/dl (14.0-18.0); Immature Granulocytes # (auto) 0.06 K/uL (0.01-0.20); Immature Granulocytes % (auto) 0.3 %; Lymphocytes # (auto) 1.56 K/uL (1.20-3.40); Lymphocytes % (auto) 8.9 %; Mean Corpuscular Hemoglobin 31.3 pg (25.0-34.0); Mean Corpuscular Hgb Conc 32.9 g/dL (32.0-36.0); Mean Corpuscular Volume 95.1 fL (80.0-100.0); Mean Platelet Volume 11.1 fL (9.4-12.4); Monocytes % (auto) 5.1 %; Neutrophils % (auto) 85.3 %; Platelet Count 334 K/uL (130-400); RDW Coefficient of Variation 22.5 % (11.5-14.5); RDW Standard Deviation 78.2 fL (36.4-46.3); Red Blood Count 3.26 M/uL (4.70-6.10); White Blood Count 17.48 K/ul (4.8-10.8)
[2024-12-17 21:59] LABS: Alanine Aminotransferase 9 U/L (7-52); Albumin Globulin Ratio 0.9 (0.9-2); Albumin Level 4.2 gm/dl (3.4-5.0); Alkaline Phosphatase 116 U/L (34-104); Anion Gap 7 (3-11); Aspartate Aminotransferase 13 U/L (13-39); BUN Creatinine Ratio 17.5 (10-20); Bilirubin,Total 1.3 mg/dl (0.2-1.0); Blood Urea Nitrogen 28 mg/dl (6-23); Calcium 9.1 mg/dl (8.6-10.3); Carbon Dioxide 27 mmol/L (21-32); Chloride 98 mmol/L (98-107); Globulin 4.5 gm/dl (2.5-4.0); Glucose 200 mg/dl (70-99(Fasting)); Magnesium 1.6 mg/dl (1.7-2.4); Sodium 132 mmol/L (136-145); Total Protein 8.7 gm/dl (6.0-8.3)
[2024-12-17 22:05] LABS: Troponin I High Sensitivity 15.1 pg/ml (0-20)
[2024-12-17 22:08] LABS: Anisocytosis Present; Target Cells 1+
[2024-12-17 22:15] LABS: Thyroid Stimulating Hormone 0.897 uIu/ml (0.300-4.500)
[2024-12-17 22:20] LABS: Influenza A virus by PCR Negative (Neg); Influenza B virus by PCR Negative (Neg); RSV by PCR Negative (Neg); SARS CoV2 RNA(COVID-19) Ceph NEGATIVE (Negative)
[2024-12-17 22:29] LABS: Prothrombin Time 10.9 Seconds (9.0-12.0)
[2024-12-17 22:34] LABS: Appearance Urine Clear (Clear); Bacteria Urine Automated None Seen (None Seen); Bilirubin Urine Negative (Negative); Blood Urine Negative (Negative); Cast Urine Automated >20 /lpf (0-2); Color Urine Dark Yellow; Epithelial Cell Urine Auto 0-2 /hpf (0-2); Glucose Urine UA Negative (Negative); Hyaline Casts Urine Present /lpf (None Presnt); Ketones Urine Trace (Negative); Leukocyte Esterase Urine Negative (Negative); Nitrite Urine Negative (Negative); Protein Urine 1+ (Negative); RBC Urine Automated 0-2 /hpf (0-2); Specific Gravity Urine 1.025 (1.000-1.030); Urobilinogen Urine Negative (Negative); WBC Urine Automated 0-5 /hpf (0-5)
[2024-12-17] MEDS: SODIUM CHLORIDE 0.9% 2,000 ML IV ONE (22:48)
[2024-12-17] MEDS: cefTRIAXone SODIUM 2,000 MG/50 ML BAG IV STA (22:52)
--- NOTE | 2024-12-17 23:16 | History & Physical Report ---
Date of Service December 17, 2024 Assessment & Plan (1) RLL pneumonia: (2) Sepsis: (3) Metabolic encephalopathy: (4) Stage 3b chronic kidney disease: Plan Patient is a 79-year-old male with past medical history of type II DM on insulin, myelodysplastic syndrome, COPD, cardiomyopathy s/p ICD, dementia, BPH, hypertension, CAD/IN, bicuspid aortic valve s/p aortic valve replacement, CKD. Patient with history of known pneumonia and started azithromycin Friday 12/15 (has taken 3 doses), presented due to confusion this evening. Patient was CXR confirming RLL pneumonia and meeting SIRS criteria, with metabolic encephalopathy. #RLL PNA/sepsis - Patient with cough, dyspnea on exertion, crackles to right lower LL and right mL. Failed outpatient treatment with azithromycin. CXR shows right lower lobe pneumonia. Non-hypoxic on RA. Procal negative, lactate 1.2. Covid/flu/RSV swab negative. + SIRS: WBC 17.48 (chronically elevated, however of upper end of baseline), hypotensive 98/72, tachycardic 97 - Rocephin + transition azithromycin to IV (received PO at home 12/17, x3 doses at home) - MRSA swab ordered, will add MRSA coverage if positive - incentive spirometry - Tessalon Perles and Tylenol as needed - DuoNeb every 2 hours as needed - oxygen prn for O2 <90%, wean as tolerated - follow blood cultures - Sepsis fluid bolus for ideal body weight = 2181.60ml; given 2L NSS in ED - Additional 250 mL bolus NSS ordered to complete sepsis fluid bolus - NSS @ 125 ml/hr ordered - Trend CBC #Metabolic encephalopathy head CT negative. patient with underlying dementia, alert and oriented x 4 at time of admission. TSH WNL, UA negative. Suspect mild encephalopathy 2/2 infection/sepsis and electrolyte abnormalities. Supportive care - promote good sleep-wake cycles, melatonin as needed - Out of bed as tolerated - anticipate to improve with treatment above #CKD Cr 1.6 on upper end of baseline (Bl 1.2-1.59). Magnesium 1.6, NA 132, K+ 5.0 - Correct magnesium with 2G IV magnesium - NSS for hyponatremia - Promote oral hydration and IVF as above - Trend BMP and Mag #HTN mildly hypotensive at time of admission, 106/57 prior to fluid bolus. - anticipate to improve with sepsis fluid bolus - Continue carvedilol with holding precautions #CAD/cardiomyopathy/Bicuspid aortic valve - s/p ICD and prosthetic aortic valve placement. Most recent stent 2019. Follows with Dr. Segura. Most recent echo 05/2024 revealed moderate LVH, EF 60 to 65%, prosthetic aortic valve well- seated, mild MR. - Continue aspirin, Plavix, carvedilol, statin #COPD stable. No acute exacerbation, not wheezing at time of exam, no sputum production. - Continue home inhalers #T2DM - Most recent A1C 8.5%. - hold glimepiride with inpatient glucose management - SSI with target BSG range 110-180mg/dL, CF 25, carb ratio 8 - Reduce home Lantus to 8U QAM, 20U HS with inpatient diet control - Neuropathy: continue gabapentin #mental health/dementia stable. Continue BuSpar, Cymbalta, lamotrigine, Namenda, and Aricept #BPH stable. no current retention. Continue finasteride Bladder scan as needed #GERD stable Continue PPI VTE ppx: Heparin Q12h Dispo: PCU Admission and Anticipated Discharge Date Admission Date: 12/17/24 History of Present Illness Chief Complaint: confusion Primary Care Provider: Leandro Rodrigues MD Patient is a 79-year-old male with past medical history of type II DM on insulin, myelodysplastic syndrome, COPD, cardiomyopathy s/p ICD, dementia, BPH, hypertension, CAD/IN, bicuspid aortic valve s/p aortic valve replacement, CKD. Patient with history of known pneumonia and started azithromycin Friday 12/15 (has taken 3 doses), presented due to confusion this evening. Patient was CXR confirming RLL pneumonia and meeting SIRS criteria with white count 17.48, tachycardia HR 97, hypotension BP 98/72. Patient seen at bedside. he is alert and oriented x 4 however appears somewhat confused and does not really remember why he came in this evening. Patient was reminded that his family brought him in because he was confused at dinnertime and he then remembered. He stated he is been being treated with azithromycin for pneumonia since Wednesday and has taken 3 days of this. He endorses dry cough and dyspnea on exertion however stated this is chronic for him. Nursing at bedside stated when he ambulated to the bathroom, patient appeared extremely dyspneic, however oxygen stats 92% on room air. Patient stated he felt very sick this morning and vomited up water, however thinks is because he drank too much water not due to feeling ill. He does endorse poor p.o. intake for several days due to feeling sick. He denies any signs or symptoms of aspiration, stated he never chokes on his food, beverages, or medications. He denies any fevers, chills, dizziness, lightheadedness, chest pain, dyspnea at rest, abdominal pain, diarrhea, lower extremity edema. He denies nicotine or alcohol use. Patient is extremely concerned about being home by Wednesday as his was just discharged from the hospital yesterday. His daughter is staying in their home with them to help care for his , however has to return home on Wednesday evening. Noted history of PE on patient's problem list, however patient denies any history of previous PE or DVT. He does not use oxygen at baseline. He did take his evening medications. He wishes to be DNR/DNI. Patient's blood pressure 106/57 at time of admission exam, 2L fluid bolus ordered in ED was just being started. Will reevaluate feet BP after fluid bolus given. Patient denies any symptoms of hypotension. Allergies Allergy/AdvReac Type Severity Reaction Status Date / Time bee venom protein (honey bee) Allergy Severe SWELLING Verified 12/17/24 22:15 Sulfa (Sulfonamide Allergy Intermediate "SULFA": Verified 12/17/24 22:15 Antibiotics) RASH lisinopril Allergy Unknown CAN'T Verified 12/17/24 22:15 REMEMBER Penicillins Allergy Unknown CAN'T Verified 12/17/24 22:15 REMEMBER meloxicam AdvReac Severe renal Verified 12/17/24 22:15 failure codeine AdvReac Intermediate HALLUCINATI Verified 12/17/24 22:15 NG Home Medications Medication Instructions Recorded Confirmed Type epinephrine 0.3 mg/0.3 mL 0.3 mg IM Q3H PRN Allergy Symptoms 10/21/18 12/17/24 History injection, auto-injector (EpiPen) finasteride 5 mg tablet 5 mg PO QAM 10/21/18 12/17/24 History atorvastatin 40 mg tablet (Lipitor) 40 mg PO HS 10/22/18 12/17/24 History donepezil 10 mg tablet 10 mg PO QAM 10/22/18 12/17/24 History lamotrigine 200 mg tablet 200 mg PO HS 10/22/18 12/17/24 History buspirone 30 mg tablet 30 mg PO TID 07/21/20 12/17/24 History nitroglycerin 0.4 mg sublingual 0.4 mg sublingual Q5M PRN Chest 08/21/20 12/17/24 Rx tablet (Nitrostat) Pain #30 tabs memantine 5 mg tablet 5 mg PO BID #180 tabs 11/05/21 12/17/24 Rx cetirizine 10 mg tablet 10 mg PO DAILY PRN allergy 11/18/21 12/17/24 Rx symptoms #30 tabs alfuzosin 10 mg tablet,extended 10 mg PO HS 03/21/24 12/17/24 History release 24 hr carvedilol 3.125 mg tablet 3.125 mg PO BID 03/21/24 12/17/24 History mupirocin 2 % topical ointment 1 applic topical TID #15 grams 03/23/24 12/17/24 Rx dorzolamide (PF) 2 % (PF) eye drops 1 drp ophthalmic (eye) HS 04/05/24 12/17/24 History timolol maleate (PF) 0.5 % eye 1 drp ophthalmic (eye) HS 04/05/24 12/17/24 History drops in a dropperette pantoprazole 40 mg tablet,delayed 40 mg PO BID #60 tabs 04/16/24 12/17/24 Rx release duloxetine 60 mg capsule,delayed 60 mg PO BID #180 caps 04/23/24 12/17/24 Rx release latanoprost 0.005 % eye drops 1 drp ophthalmic (eye) QAM #0 mL 05/24/24 12/17/24 Rx acetaminophen 500 mg tablet 500 - 1,000 mg PO Q6H PRN 06/02/24 12/17/24 History (Acetaminophen Extra Strength) PAIN/FEVER ondansetron HCl 4 mg tablet 4 mg PO BID PRN nausea and vomiting 06/02/24 12/17/24 History gabapentin 800 mg tablet 800 mg PO TID #270 tabs 06/28/24 12/17/24 Rx aspirin 81 mg tablet,delayed 81 mg PO DAILY 07/14/24 12/17/24 History release glimepiride 1 mg tablet 2 mg PO BID 07/14/24 12/17/24 History ferrous gluconate 324 mg (37.5 mg 324 mg PO DAILY #30 tabs 07/21/24 12/17/24 Rx iron) tablet trazodone 50 mg tablet 50 mg PO .QHS #30 tabs 07/31/24 12/17/24 Rx clopidogrel 75 mg tablet 75 mg PO DAILY 08/17/24 12/17/24 History insulin glargine 100 unit/mL (3 See Rx Instructions subcut BID 08/17/24 12/17/24 History mL) subcutaneous pen (Lantus Solostar U-100 Insulin) diclofenac sodium 1 % topical gel 2 g topical QID 08/28/24 12/17/24 History methocarbamol 750 mg tablet 750 mg PO TID PRN muscle spasm #90 10/16/24 12/17/24 Rx tabs tramadol 50 mg tablet 50 mg PO QID PRN pain #120 tabs 10/24/24 12/17/24 Rx albuterol sulfate 90 mcg/actuation 2 puff inhalation Q4H PRN 11/03/24 12/17/24 Rx aerosol inhaler Shortness Of Breath Or Wheezing #8.5 grams azithromycin 250 mg tablet 250 mg PO .COMPLEX cough 5 days #6 12/15/24 12/17/24 Rx tabs fluticasone fur. 200 mcg-umeclid 1 inh inhalation DAILY #60 ea 12/15/24 12/17/24 Rx 62.5 mcg-vilant 25 mcg inhalat.powder (Trelegy Ellipta) Past Med/Surg History Problem List (Updated 12/18/24 @ 02:11 by Mela Becerril PA-C) Metabolic encephalopathy RLL pneumonia Hypomagnesemia (Acute) TAYLOR (acute kidney injury) (Acute) Leukocytosis (Acute) Pneumonia (Acute) Sepsis (Acute) Acute confusion (Acute) Rhonchi at right lung base Cough Bilateral leg pain Seroma of musculoskeletal structure after musculoskeletal system procedure (Acute) Acute left lumbar radiculopathy (Acute) Cauda equina syndrome Urinary hesitancy Fusion of spine, lumbar region Acute blood loss anemia Gastric ulcer Myelodysplasia (myelodysplastic syndrome) Actinic keratoses History of pulmonary embolism Hip pain, right Heme positive stool Anemia (Acute) Cellulitis of leg, right (Acute) BPH w urinary obs/LUTS Ankle edema Anemia Neuropathic pain Peripheral arterial disease Lumbosacral radiculopathy at S1 Right foot pain Encounter for pre-operative examination Hyperproteinemia Olecranon bursitis, right elbow resolved Lightheadedness resolved Colon cancer screening Changing skin lesion removed from hand Scattered rhonchi of right lung Chronic low back pain Chronic anemia Diarrhea ongoing Medicare annual wellness visit, subsequent Olecranon bursitis, left elbow resolved Folate deficiency Vitamin B 12 deficiency Nonallergic rhinitis Allergic rhinitis Cervicalgia Paraproteinemia Chronic low back pain Proteinuria Nocturnal enuresis 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 Biventricular cardiac pacemaker in situ Stage 3b chronic kidney disease Chronic anemia Syncope and collapse happened once in 2020 Dementia Dyspnea on exertion Cardiomyopathy CAD, multiple vessel S/P coronary artery stent placement ~2001, SOB w/chest tightness, [place], x2 stents; 2002, SOB w/chest tightness, [place], x2; 2003, SOB w/chest tightness, [place], x1 stent; 2004, SOB w/chest tightness, [place], x1 stent; 2009, SOB w/chest tightness, [place], x2 stents; 2011, SOB w/chest tightness, [place], x1 stent; 2013, SOB w/chest tightness, x2 stents, [place]; 2016, SOB w/chest tightness, [place], x1 stent; 2017, SOB w/chest tightness, x2 stents; 2019, SOB w/chest tightness, [facility], x4 stents; f/u dr. segura Squamous cell skin cancer Aneurysm of ascending aorta (Acute) monitoring currently; f/u dr. segura, [facility] Asthma with COPD (Acute) daily inh and prn inhaler Carotid artery stenosis (Acute) Generalized anxiety disorder (Acute) History of TIA (transient ischemic attack) (Acute) Hyperlipidemia (Acute) Benign essential hypertension (Acute) Myelodysplastic syndrome (Acute) PTSD (post-traumatic stress disorder) (Acute) S/P aortic valve replacement with bioprosthetic valve (Acute) S/P laparoscopic cholecystectomy (Acute) Depression BPH (benign prostatic hyperplasia) COPD (chronic obstructive pulmonary disease) CKD (chronic kidney disease) (Acute) unsure of stage Pacemaker 2011, Placed after AVR due to complete heart block, [place]; [employer] Medical History TAYLOR (acute kidney injury) Lumbar spinal stenosis Left lumbar radiculopathy Orthostatic hypotension Hyperkalemia Acute alteration in mental status Foreign body of right heel Syncope and collapse Hx of squamous cell carcinoma Pulmonary embolism PTSD (post-traumatic stress disorder) PAD (peripheral artery disease) Orthostatic hypotension Hip pain, left Lumbosacral radiculopathy at S1 Hyperlipidemia Generalized anxiety disorder Diabetes mellitus, type 2 Depression CKD (chronic kidney disease) Chronic low back pain Chronic anemia Cervicalgia Neuropathy Carotid artery stenosis Cardiomyopathy Biventricular cardiac pacemaker in situ Asthma with COPD Ascending aortic aneurysm Hx-TIA (transient ischemic attack) History of COVID-19 Chronic bronchitis Leukocytosis CARTER (dyspnea on exertion) Bicuspid aortic valve Dementia BPH (benign prostatic hyperplasia) HTN (hypertension), benign CAD (coronary artery disease) Myocardial infarction Surgical History Hx of squamous cell carcinoma excision S/P cardiac pacemaker procedure History of back surgery History of tonsillectomy History of repair of rotator cuff S/P right knee surgery H/O endoscopic retrograde cholangiopancreatography History of colonoscopy Hx of cholecystectomy H/O cardiac catheterization S/P aortic valve replacement Family History Sister Anxiety Brother Alcohol abuse Father Cardiac disorder Myocardial infarction Mother Depression Kidney disease Lung disease Stroke Other Family history non-contributory Denies family history of Ovarian cancer Prostate cancer Breast cancer Colorectal cancer Social History Smoking Status: Current some day smoker Tobacco Type: Cigarettes and Smokeless Tobacco (Dip or Chew) Age Started Using Tobacco: 16; Age Quit Using Tobacco: 64; packs per day: 2; Cigarettes Per Day: 1; Second Hand Exposure: No; Do You Dip or Chew Tobacco: Yes; Tobacco Cessation Education Requested by Patient: No Hx Alcohol Use: No Hx Substance Use: No Preferred Language: Salvadorean Communication Ability: Effective Visual Impairment: Limited Hearing Ability: Use of Hearing Aid Clam Treader Required: No Beliefs That Will Affect Care: None marital status: Current Living Situation: Spouse Current Living Situation Comment: 1 story home, 2 steps to enter home Other Information That Helps Us Care for You: No Feels Safe at Home: Yes Safety Concerns: Feels Safe At This Time Childhood Exposure to Second-Hand Smoke: Yes Seatbelt Use: always Sunscreen Use: Yes Assistive Devices: Cane and Walker Review of Systems Review of Systems: See HPI Physical Exam Physical Exam: The patient is awake, alert and oriented 3, well developed and well nourished, normocephalic and atraumatic, in no acute distress. Non-toxic appearing. HEENT- EOMI, mucous membranes dry. Hearing grossly intact. Heart-normal S1 and S2. No murmurs, rubs or gallops. Lungs- Crackles to right middle and right lower lobe, no respiratory distress, no accessory muscle use. on room air. Abdomen-normal bowel sounds and soft. No ascites noted. Non-tender. Extremities- no clubbing, cyanosis, or edema. Rheumatologic-normal range of motion. Psychiatric-normal affect. Results & Data Results & Data Vital Signs (Past 12 Hours) Vital Signs Temp Pulse Pulse Resp BP BP Pulse Ox 12/17/24 23:07 71 19 98/72 L 94 12/17/24 22:11 97 H 20 124/94 95 12/17/24 21:30 68 16 122/70 92 12/17/24 21:24 85 19 94 12/17/24 20:41 65 12/17/24 20:38 37.2 C 92 H 20 118/64 93 12/17/24 20:28 36.8 C 91 H 20 107/68 94 O2 Del Method 12/17/24 23:07 Room Air 12/17/24 22:11 Room Air 12/17/24 21:30 Room Air 12/17/24 21:24 Room Air 12/17/24 20:41 12/17/24 20:38 Room Air 12/17/24 20:28 Room Air Laboratory Results reviewed CBC, CMP, procalcitonin, magnesium, TSH, lactate, UA, COVID/flu/RSV swab Diagnostic Findings reviewed head CT and CXR Medications Administered ED2L NSS bolus, Rocephin 2G IV, 1G IV magnesium ECG Additional Comments: Ordered Code Status & VTE Plan Code Status dnr/dni VTE Prophylaxis Plan VTE Prophylaxis will be ordered: Yes Supervising Physician Co-Signing Physician Notes Patient seen and examined, chart reviewed, case discussed with TED Becerril and I agree with the assessment and plan as above. In brief, patient is a 79yo male with h/o DM, MDS, HTN, CAD presenting with RLL PNA and sepsis. Family reports patient was acting confused prior to arrival. Patient denies this stating that "they're the ones that were confused On exam patient is resting comfortably, NAD SKin - no rash HEENT - MMM, Neck supple Heart - +S1/S2, regular Lungs - Crackles present in RLL and right mid lung field Abd - soft, NT/ND Labs an dimages reviewed Assessment/Plan -Ceftriaxone and Azithromycin -Nebs and O2 PRN -Gentle IVF, monitor renal function. Cr today is at patient's upper limit of baseline REmainder as above PG Care Time/CCT Total # of Minutes Spent Total Time Spent with Patient: Total time spent is greater than 50% in coordination of care (as documented) at patient's floor/unit and/or counseling patient: Coding Level of Care Code 14453 INT INP/OBS CARE 3/75MIN Diagnoses RLL pneumonia J18.9 Sepsis A41.9 Metabolic encephalopathy G93.41 Stage 3b chronic kidney disease N18.32
[2024-12-17] MEDS: MAGNESIUM SULFATE / D5W 1 GM/100 ML BAG IV STA (23:22)
--- NOTE | 2024-12-17 23:56 | XRay Report ---
Exam(s): XR CXR 1 VIEW EXAM: XR Chest, 1 View CLINICAL HISTORY: Reason for exam: weakness. TECHNIQUE: Frontal view of the chest. COMPARISON: No relevant prior studies available. FINDINGS: There is a MR-compatible pacemaker in the left chest wall distally to the right atrium, right ventricle and coronary sinus. Lungs: Right lower lobe infiltrate. Pleural space: Unremarkable. No pneumothorax. Heart: Unremarkable. No cardiomegaly. Mediastinum: Unremarkable. Normal mediastinal contour. Bones/joints: Status post median sternotomy. No acute fracture. IMPRESSION: Right lower lobe infiltrate. Communications: Verify Receipt Electronically signed by: Khushbu Caba MD 12/17/24 23:55 PM
[2024-12-18] MEDS ORDERED: GLUCOSE 10 TAB/TUBE PO PRN (01:13)
[2024-12-18] MEDS ORDERED: ALBUTEROL HFA 8 GM INHALER INH PRN (01:13)
[2024-12-18] MEDS ORDERED: ONDANSETRON INJ 2 MG/ML 2 ML VIAL IV PRN (01:13)
[2024-12-18] MEDS ORDERED: DEXTROSE 50% 50 ML SYRINGE IV PRN (01:13)
[2024-12-18] MEDS ORDERED: ALBUT/IPRATROP 3MG/0.5MG NEB 3 ML VIAL NEB PRN (01:13)
[2024-12-18] MEDS ORDERED: METHOCARBAMOL 750 MG TABLET PO PRN (01:13)
[2024-12-18] MEDS ORDERED: GLUCAGON FOR INJ 1 MG VIAL SQ PRN (01:13)
[2024-12-18] MEDS ORDERED: ACETAMINOPHEN 325 MG TAB PO PRN (01:13)
[2024-12-18] MEDS ORDERED: traMADol HCL 50 MG TABLET PO PRN (01:13)
[2024-12-18] MEDS ORDERED: DOCUSATE SODIUM 100 MG CAP PO PRN (01:13)
[2024-12-18] MEDS ORDERED: BENZONATATE 100 MG CAPSULE PO PRN (01:13)
[2024-12-18] MEDS ORDERED: MELATONIN 3 MG TAB PO PRN (01:13)
[2024-12-18] MEDS ORDERED: NITROGLYCERIN SL 0.4 MG/TAB TAB SL PRN (01:13)
[2024-12-18] MEDS ORDERED: GLUCOSE 40% GEL 15 GM TUBE PO PRN (01:13)
--- NOTE | 2024-12-18 01:17 | CT Scan Report ---
Exam(s): CT HEAD Without Contrast EXAM: CT Head Without Intravenous Contrast CLINICAL HISTORY: Reason for exam: confusion. TECHNIQUE: Axial computed tomography images of the head/brain without intravenous contrast. Automated exposure control was utilized for the study. A dose lowering technique was utilized adhering to the principles of ALARA. COMPARISON: No relevant prior studies available. FINDINGS: Brain: Unremarkable. No hemorrhage. No significant white matter disease. No edema. Ventricles: Mild ventriculomegaly. Bones/joints: Unremarkable. No acute fracture. Soft tissues: Unremarkable. Sinuses: Chronic right sphenoid sinusitis. No acute sinusitis. Mastoid air cells: Unremarkable as visualized. No mastoid effusion. IMPRESSION: No evidence of acute intracranial pathology. Electronically signed by: Khushbu Caba MD 12/18/24 01:16 AM
[2024-12-18] MEDS: MAGNESIUM SULFATE / D5W 1 GM/100 ML BAG IV ONE (01:22)
[2024-12-18] MEDS: SODIUM CHLORIDE 0.9% 250 ML IV ONE (02:24)
[2024-12-18] MEDS: SODIUM CHLORIDE 0.9% 1,000 ML IV SCH (04:06)
[2024-12-18 06:33] LABS: Basophils # (auto) 0.04 K/uL (0.00-0.20); Basophils % (auto) 0.3 %; Eosinophils # (auto) 0.05 K/uL (0.00-0.50); Eosinophils % (auto) 0.4 %; Hematocrit (blood only) 27.4 % (42.0-52.0); Hemoglobin 9.1 g/dl (14.0-18.0); Immature Granulocytes # (auto) 0.06 K/uL (0.01-0.20); Immature Granulocytes % (auto) 0.5 %; Lymphocytes % (auto) 12.5 %; Mean Corpuscular Hemoglobin 31.2 pg (25.0-34.0); Mean Corpuscular Hgb Conc 33.2 g/dL (32.0-36.0); Mean Corpuscular Volume 93.8 fL (80.0-100.0); Mean Platelet Volume 11.3 fL (9.4-12.4); Monocytes # (auto) 1.13 K/uL (0.11-0.59); Monocytes % (auto) 8.8 %; Neutrophils # (auto) 9.96 K/uL (1.40-6.50); Neutrophils % (auto) 77.5 %; Nucleated RBC # (auto) 0.02 K/uL (0.00-0.12); Nucleated RBC % (auto) 0.2 %; Platelet Count 303 K/uL (130-400); RDW Coefficient of Variation 21.9 % (11.5-14.5); RDW Standard Deviation 75.9 fL (36.4-46.3); Red Blood Count 2.92 M/uL (4.70-6.10); White Blood Count 12.84 K/ul (4.8-10.8)
[2024-12-18 07:05] LABS: BUN Creatinine Ratio 21.3 (10-20); Calcium 8.4 mg/dl (8.6-10.3); Creatinine Clr Calc Pharmacy 53.1 ml/min; Magnesium 2.1 mg/dl (1.7-2.4); Potassium 4.7 mmol/L (3.5-5.1)
[2024-12-18 07:06] LABS: Anisocytosis Present; Polychromasia 1+
[2024-12-18 07:58] LABS: Base Excess VBG -3.1 mEq/L; HCO3 VBG 23 mmol/L; Oxygen Saturation VBG < 60.0 %; PCO2 VBG 46 mmHg (38-50); PO2 VBG 23 mmHg; pH VBG 7.31 (7.36-7.41)
[2024-12-18] MEDS: UMECLIDINIUM/VILANTEROL 62.5/25MCG 7 PUFFS/INHALER INH SCH (08:05)
[2024-12-18] MEDS: FLUTICASONE FUROATE 200MCG 14 PUFFS/INHALER INH SCH (08:05)
[2024-12-18] MEDS: ASPIRIN 81 MG ECTAB PO SCH (08:06)
[2024-12-18] MEDS: carvediloL 3.125 MG TAB PO SCH (08:06)
[2024-12-18] MEDS: busPIRone 15 MG TAB PO SCH (08:06)
[2024-12-18] MEDS: DONEPEZIL HCL 10 MG TAB PO SCH (08:07)
[2024-12-18] MEDS: CLOPIDOGREL BISULFATE 75 MG TAB PO SCH (08:07)
[2024-12-18] MEDS: PANTOprazole 40 MG TAB PO SCH (08:07)
[2024-12-18] MEDS: FINASTERIDE 5 MG TAB PO SCH (08:08)
[2024-12-18] MEDS: DULoxetine HCL 60 MG CAP PO SCH (08:08)
[2024-12-18] MEDS: MEMANTINE HCL 5 MG TAB PO SCH (08:08)
[2024-12-18] MEDS: GABAPENTIN 800 MG TAB PO SCH (08:09)
[2024-12-18] MEDS: LATANOPROST 0.005% OP SOLN 2.5 ML BTL OP SCH (08:09)
[2024-12-18] MEDS: INSULIN ASPART PER UNIT CHARGE SC SCH (08:19)
[2024-12-18] MEDS: LANTUS PER UNIT CHARGE SQ SCH (08:20)
[2024-12-18] MEDS: HEPARIN SOD 5,000 UNIT/0.5 ML VIAL SQ SCH (08:20)
[2024-12-18] MEDS ORDERED: NON-FORMULARY MEDICATION (Fluticasone-Umeclidin-Vilanter [Trelegy Ellipta] 200-62.5-25 mcg INH SCH (09:00)
[2024-12-18] MEDS: AZITHROMYCIN 500 MG/255 ML BAG IV SCH (10:20)
--- NOTE | 2024-12-18 12:46 | Electrocardiogram Report ---
Test Reason : Blood Pressure : */* mmHG Vent. Rate : 67 BPM Atrial Rate : 67 BPM P-R Int : 124 ms QRS Dur : 130 ms QT Int : 440 ms P-R-T Axes : * 241 81 degrees QTcB Int : 464 ms AV dual-paced rhythm with occasional ventricular-paced complexes Abnormal ECG When compared with ECG of 17-May-2024 07:13, Vent. rate has decreased by 20 bpm Confirmed by Ortiz Washington ([id number]) on 12/18/2024 12:45:50 PM Referred By: REFERRED SELF Confirmed By: Ortiz Washington
--- NOTE | 2024-12-18 13:07 | Electrocardiogram Report ---
Test Reason : Blood Pressure : */* mmHG Vent. Rate : 65 BPM Atrial Rate : 65 BPM P-R Int : * ms QRS Dur : 134 ms QT Int : 456 ms P-R-T Axes : * 239 76 degrees QTcB Int : 474 ms AV sequential or dual chamber electronic pacemaker Non-specific intra-ventricular conduction block Anterolateral infarct , age undetermined Abnormal ECG When compared with ECG of 17-Dec-2024 20:43, (unconfirmed) No significant change was found Confirmed by Ortiz Washington ([id number]) on 12/18/2024 1:07:07 PM Referred By: REFERRED SELF Confirmed By: Ortiz Washington
[2024-12-18] MEDS: cefTRIAXone SODIUM 2,000 MG/50 ML BAG IV ONE (14:18)
[2024-12-18] MEDS: CARBOHYDRATES FOR HYPOGLYCEMIA PO PRN (14:19)
[2024-12-18] MEDS: DOXYCYCLINE HYCLATE 100 MG CAP PO STA (14:58)
[2024-12-18 15:27] VITALS: BP 120/68; PULSE 80; RESP 20; TEMP 97.5; O2SAT 90
--- NOTE | 2024-12-18 16:37 | Discharge Summary ---
Discharge Summary Date of Service December 18, 2024 Principal Dx & Hospital Course #1 = Principal Diagnosis (1) RLL pneumonia: (2) Sepsis: (3) Metabolic encephalopathy: (4) Stage 3b chronic kidney disease: Plan [id number] male with past medical history of DNR/DNI @ home, major depression/PTSD on duloxetine 60mg PO bid, anxiety disorder on buspirone 30mg PO tid, insomnia disorder on trazodone 50mg PO qhs, seizure disorder on lamotrigine 200mg PO qhs, mild dementia without behavioral disturbances on donepezil 10mg PO qam and memantine 5mg PO bid, chronic open angle glaucoma on latanoprost 0.005% ophthalmic solution, 1 gtt OU qam, dorzolamide 2% ophthalmic solution, 1 gtt OU qhs, and timolol 0.5% ophthalmic solution, 1 gtt OU qhs, BPH on finasteride 5mg PO qam and alfuzosin 10mg PO qhs, GERD on protonix 40mg PO bid, CKD stage II with baseline creatinine range, 1.19 - 1.39 (10/22/2018 - 07/19/2024), insulin- dependent DM2 with HbA1c 8.5% (10/24/2024, 11:17am) on lantus 8 units SQ qam, l antus 28 units SQ qpm, glimepiride 2mg PO bid, HTN, CAD s/p acute VT, s/p 11 stents (~2001, SOB w/chest tightness, [facility], x2 stents; 2002, SOB w/chest tightness, [facility], x2; 2003, SOB w/chest tightness, [facility], x1 stent; 2004, SOB w/chest tightness, [facility], x1 stent; 2009, SOB w/chest tightness, [facility], x2 stents; 2011, SOB w/chest tightness, [facility] @ [place], x1 stent; 2013, SOB w/chest tightness, x2 stents, [facility]; 2015, SOB w/chest tightness, [facility], x1 stent; 2018, SOB w/chest tightness, x2 stents; 2019, SOB w/chest tightness, [facility], x4 stents; f/u [facility] Dr. Raymundo Saba), bicuspid aortic valve s/p AVR, chronic diastolic CHF with preserved LVEF 60-65% and grade I diastolic dysfunction (as noted on 05/17/2024, 8:52am TTE, [facility] Dr. Donato Echeverria), s/p PPM, chronic myelodysplastic syndrome with chronic leukocytosis with baseline WBC range of 10.83 (08/06/2017, 6:57am) to 17.46 (05/21/2024, 5:38am), chronic normocytic, normochromic anemia with progressive decline in baseline Hb range from 12.6 g/dL (09/10/2017, 8:47am) to 8.6 g/dL (07/19/2024, 5:57am), ongoing tobacco abuse with subsequent diagnosis of COPD, not on home O2 or home steroids, who was diagnosed with community acquired pneumonia and started on azithromycin 500mg PO daily x 3 doses (12/15/2024, 12/16/2024, 12/17/2024), followed by the acute onset of confusion. Patient was subsequently admitted to the inpatient hospitalist service at [facility] on 12/17/2024 with the following diagnoses: 1. Acute toxic metabolic encephalopathy due to sepsis, due to acute RLL CAP. 2. Acute kidney injury with admission creatinine 1.6 mg/dL (12/17/2024, 8:46pm) , superimposed on CKD stage II with baseline creatinine range, 1.19 - 1.39 (10/22/2018 - 07/19/2024). 3. Acute hypomagnesemia with admission magnesium 1.6 mg/dL (12/17/2024, 8:46pm). 4. Acute hyponatremia with admission Na 132 mmol/L (12/17/2024, 8:46pm). The following medical issues were addressed while the patient remained in [facility] from 12/17/2024 to 12/18/2024: 1. Acute toxic metabolic encephalopathy RESOLVED, due to sepsis, due to acute RLL CAP - RESOLVING very rapidly/well as patient is no longer confused on 12/07, is no longer septic, and has no complaints of cough, SOB/CARTER, or wheeze on 12/18/2024. Patient has a resting O2 saturation of 93% on room air (12/18/2024, 7:26am) to 90% on room air (12/18/2024, 3:26pm), which is in line with his resting O2 saturation of 90-93% on room air at home. Patient received ceftriaxone 2g IV daily x 2 doses (12/17/2024, 10:52pm; 12/18/2024, 2:18pm) and azithromycin 500mg IV daily x 1 dose (12/18/2024, 10:20am). Patient's WBC declined from WBC 17.48, N85 L9 M5 (12/17/2024, 8:46pm) to WBC 12.84, N78 L13 M9 (12/18/2024, 5:47am). Patient stated that feels "80% better and I am ready to go home now." Patient subsequently received doxycycline 100mg PO x 1 dose (12/18/2024, 2:58pm) and tolerated this antibiotic well. Patient was subsequently discharged back to his home with electronic prescriptions for: a. cefdinir 300mg PO bid, #6 tablets, no refills. b. doxycycline 100mg PO bid, #6 capsules, no refills. Patient was advised to follow up with his PCP Dr. Leandro Rodrigues within 5-7 days of hospital discharge to discuss final results for blood cultures #1 and #2 (12/17/2024, 10:57am). cf., MRSA nares negative (12/18/2024, 12:00am). cf., influenza A-B-, RSV-, COVID- (12/17/2024, 8:46pm). 1. Acute toxic metabolic encephalopathy, RESOLVED head CT negative. patient with underlying dementia, alert and oriented x 4 at time of admission date 12/17/2024 and on discharge dadte 12/18/2024. TSH WNL, UA negative. Suspect mild encephalopathy 2/2 infection/sepsis and electrolyte abnormalities. Supportive care - promote good sleep-wake cycles, melatonin as needed - out of bed as tolerated 2. Acute kidney injury with admission creatinine 1.6 mg/dL (12/17/2024, 8:46pm) , superimposed on CKD stage II with baseline creatinine range, 1.19 - 1.39 (10/22/2018 - 07/19/2024). Patient received 2 liters of 0.9% NS @ 999 mL/hr (12/17/2024, 10:48pm) and 250mL of 0.9% NS @ 999 mL/hr (12/18/2024, 2:24am), and acute kidney injury RESOLVED with post-hydration creatinine 1.22 (12/18/2024, 5:47am). 3. Acute hypomagnesemia with admission magnesium 1.6 mg/dL (12/17/2024, 8:46pm). Patient received magnesium sulfate 1g IV x 2 doses (12/17/2024, 11:22pm; 12/18/2024, 1:22am) and acute hypomagnesemia RESOLVED with post- supplement Mg 2.1 mg/dL (12/18/2024, 5:47am). 4. Acute hyponatremia with admission Na 132 mmol/L (12/17/2024, 8:46pm). Patient received 2 liters of 0.9% NS @ 999 mL/hr (12/17/2024, 10:48pm) and 250mL of 0.9% NS @ 999 mL/hr (12/18/2024, 2:24am), and acute hyponatremia RESOLVED with post-hydration Na 136 mmol/L (12/18/2024, 5:47am). Other secondary medical issues included: #HTN mildly hypotensive at time of admission, 106/57 prior to fluid bolus. - Continue home-scheduled carvedilol 3.125mg PO bid. #CAD/cardiomyopathy/Bicuspid aortic valve - s/p ICD and prosthetic aortic valve placement. Most recent stent 2019. Follows with Dr. Saba. Most recent echo 05/2024 revealed moderate LVH, EF 60 to 65%, prosthetic aortic valve well- seated, mild MR. - Continue home-scheduled aspirin 81mg PO daily, plavix 75mg PO daily, carvedilol 3.125mg PO bid, atorvastatin 40mg PO qhs. #COPD stable. No acute exacerbation, not wheezing at time of exam, no sputum production. Not on home oxygen or home steroids. Patient was discharged back to his home breathing room air comfortably and with no need for supplemental oxygen or steroids on hospital discharge back to home on 12/18/2024. - Continue home-scheduled albuterol MDI 90ug/puff, 2 puffs PO q4 prn SOB/wheeze. HELD OFF home-scheduled fluticasone 200ug - umeclidinium 62.5ug - vilanterol 25ug/puff, 1 puff PO daily while in [facility] and on hospital discharge home on 12/18/2024; patient was advised to HOLD OFF home-scheduled fluticasone 200ug - umeclidinium 62.5ug - vilanterol 25ug/puff, 1 puff PO daily for the next 7 days (12/19/2024 - 12/25/2024) in order to convalesce from acute RLL CAP, noting that vilanterol, a long-acting beta adrenergic agonist can cause paradoxical bronchospasm in acute pneumonia; instead, patient was advised to continue using his home-scheduled albuterol MDI 90ug/puff, 2 puffs PO q4 prn SOB/wheeze, noting that albuterol, a short-acting beta adrenergic agonist does NOT cause paradoxical bronchospasm in acute pneumonia. #T2DM - Most recent HbA1c 8.5% (10/24/2024, 11:17am) - HELD OFF home-scheduled glimepiride 2mg PO bid while in [facility] and on hospital discharge home on 12/18/2024; patient was advised to HOLD OFF home-scheduled glimepiride 2mg PO bid for the next 7 days (12/19/2024 - 12/25/2024) in order to convalesce from acute RLL CAP, noting that glimepiride can lower blood glucose levels significantly when a person is sick with acute RLL CAP. - SSI with target BSG range 110-180mg/dL, CF 25, carb ratio 8 - While in [facility], patient's home Lantus scheduled was modified from 8 units SQ qam and 28 units SQ qhs (at home) to 8 units SQ qam and 20 units SQ qhs (at [facility]) on 12/17/2024 pm, with inpatient diet control utilizing a carbohydrate consistent diet; subsequently, patient's glucose level declined from 186 mg/dL (12/18/2024, 10:59am) to 56 mg/dL (12/18/2024, 2:15pm), after which, patient ate some peanut butter and crackers and his fingerstick glucose level increased to 88 mg/dL (12/18/2024, 2:40pm) without any symptomatic complaints of dizziness, lightheadedness, or weakness. Consequently, patient was discharged back to his home on 12/18/2024 with his home-scheduled lantus 8 units SQ qam DISCONTINUED, while continuing his newly-hospital started lantus 20 units SQ qhs and continuing his home-scheduled glimepiride 2mg PO bid. - Neuropathy: HOLD OFF home-scheduled gabapentin 800mg PO tid for the next 7 days (12/19/2024 - 12/25/2024) in order to convalesce from acute RLL CAP, noting that gabapentin increases the risk of infection of any kind. #mental health/dementia stable. Continue home-scheduled buspirone 30mg PO tid, duloxetine 60mg PO bid, lamotrigine 200mg PO qhs, donepezil 10mg PO qam, and memantine 5mg PO bid. #BPH stable. no current retention. Continue home-scheduled finasteride 5mg PO qam. #GERD stable HELD OFF home-scheduled protonix 40mg PO bid while in [facility] and on hospital discharge home on 12/18/2024; patient was advised to HOLD OFF home-scheduled protonix 40mg PO bid for the the next 7 days (12/19/2024 - 12/25/2024) in order to convalesce from acute RLL CAP, noting that protonix and other proton pump inhibitors can cause acute aspiration pneumonia. VTE ppx: Heparin Q12h Dispo: PCU Admission HPI Per Admitting Provider Patient is a 79-year-old male with past medical history of type II DM on insulin, myelodysplastic syndrome, COPD, cardiomyopathy s/p ICD, dementia, BPH, hypertension, CAD/VT, bicuspid aortic valve s/p aortic valve replacement, CKD. Patient with history of known pneumonia and started azithromycin Friday 12/15 (has taken 3 doses), presented due to confusion this evening. Patient was CXR confirming RLL pneumonia and meeting SIRS criteria with white count 17.48, tachycardia HR 97, hypotension BP 98/72. Patient seen at bedside. he is alert and oriented x 4 however appears somewhat confused and does not really remember why he came in this evening. Patient was reminded that his family brought him in because he was confused at dinnertime and he then remembered. He stated he is been being treated with azithromycin for pneumonia since Wednesday and has taken 3 days of this. He endorses dry cough and dyspnea on exertion however stated this is chronic for him. Nursing at bedside stated when he ambulated to the bathroom, patient appeared extremely dyspneic, however oxygen stats 92% on room air. Patient stated he felt very sic k this morning and vomited up water, however thinks is because he drank too much water not due to feeling ill. He does endorse poor p.o. intake for several days due to feeling sick. He denies any signs or symptoms of aspiration, stated he never chokes on his food, beverages, or medications. He denies any fevers, chills, dizziness, lightheadedness, chest pain, dyspnea at rest, abdominal pain, diarrhea, lower extremity edema. He denies nicotine or alcohol use. Patient is extremely concerned about being home by Wednesday as his was just discharged from the hospital yesterday. His daughter is staying in their home with them to help care for his , however has to return home on Wednesday evening. Noted history of PE on patient's problem list, however patient denies any history of previous PE or DVT. He does not use oxygen at baseline. He did take his evening medications. He wishes to be DNR/DNI. Patient's blood pressure 106/57 at time of admission exam, 2L fluid bolus ordered in ED was just being started. Will reevaluate feet BP after fluid bolus given. Patient denies any symptoms of hypotension. Discharge Exam Constitutional General: Comfortable, coherent, cooperative. Wide awake and alert. Not confused, lethargic, or obtunded. Patient speaks in complete, fluent, and articulate sentences without pause, cough, or wheeze, with O2 sat 90% on room air (12/18/2024, 5:34pm). HEENT: Normocephalic, atraumatic. Extra-ocular muscles intact. Pupils equally round and reactive to light. No nystagmus, gaze paresis, anisocoria, miosis, mydriasis, hyphema, scleral injection, conjunctivitis, or pterygium. No otorrhea or rhinorrhea. No pharyngeal erythema, edema, or discharge. Neck: Supple, no stridor, bruit, goiter, or hepato-jugular reflux. Jugular venous pressure is estimated to be 3 cm above the sternal angle of Koffi, which in turn, is 5 cm above the level of the right atrium; with jugular venous pressure estimated to be 8 cm, then, there is no jugular venous distention on 12/18/2024. Lymphatics: No cervical (anterior/posterior), supraclavicular, infraclavicular, axillary, epitrochlear, or inguinal adenopathy. Chest: Symmetric rise and fall with respirations. Non-tender to palpation. Lungs: Clear to auscultation and percussion. Heart: Regular rate and rhythm. S1 and S2 noted. No S3 or S4 summation gallop. No tripartite friction rub. Grade II/ early systolic murmur @ LLSB without radiation to the carotids, axilla, or back, and which remains invariant in regards to the respiratory cycle. Abdomen: Soft, non-tender, non-distended. No rebound, guarding, Matthews's sign, or organomegaly. Bowel sounds auscultated in all 4 quadrants. Extremities: No clubbing, cyanosis, or edema. Skin: No decubitus ulcer, exanthem, or enanthem. Genito-urinary: No urethral discharge. No kendall catheter. Neurology: Alert and oriented in regards to person, place, time, and situation. DTR+ and symmetric. 5/5 motor strength in all 4 extremities, both proximally and distally. No pronator drift. No facial droop. No dysarthria. Psychiatry: No homicidal ideation. No suicidal ideation. No flat affect; smiles appropriately Discharge Plan Discharge Items Patient Disposition: Home - Self-Care Reason For Visit: PNA, SEPSIS Discharge Diagnosis: Sepsis due to acute RLL CAP. Condition on Discharge: Fair Lifting: Gradually increase as tolerated Sexual Activity: When tolerated Exercise/Sports: Gradually increase as tolerated Driving/Machine Use: No limitations Weightbearing: Full weightbearing Non-emergency contact: Primary Care Provider Call non-emergency contact if: you have any medication questions Follow-up/Referrals: Leandro Rodrigues MD [Primary Care Provider] - Diet: Heart Healthy Addtl Attending Provider Instructions: See your PCP Dr. Leandro Rodrigues within 5-7 days of hospital discharge to follow up final results of blood culture #1 (12/17/2024, 10:57pm) and blood culture #2 (12/17/2024, 10:57pm). Pending Studies at Discharge: Yes Studies:: final results of blood culture #1 (12/17/2024, 10:57pm) and blood culture #2 (12/17/2024, 10:57pm). Stand-Alone Forms: [facility], Smoking Cessation Medications and DC Order Prescriptions: New insulin glargine [Lantus U-100 Insulin] 100 unit/mL Solution 20 unit subcut QPM Qty: 10 0RF cefdinir 300 mg capsule 300 mg PO BID 3 Days Qty: 6 0RF doxycycline hyclate 100 mg capsule 100 mg PO BID 3 Days Qty: 6 0RF Continued memantine 5 mg tablet 5 mg PO BID Qty: 180 3RF acetaminophen [Acetaminophen Extra Strength] 500 mg tablet 500 - 1,000 mg PO Q6H PRN (Reason: PAIN/FEVER) Patient Comments: CONFIRMED VV MED LIST AND W/ PT'S ON 06/02/24 aspirin 81 mg tablet,delayed release (DR/EC) 81 mg PO DAILY trazodone 50 mg tablet 50 mg PO .QHS Qty: 30 5RF methocarbamol 750 mg tablet 750 mg PO TID PRN (Reason: muscle spasm) Qty: 90 5RF nitroglycerin [Nitrostat] 0.4 mg tablet, sublingual 0.4 mg Sublingual Q5M PRN (Reason: Chest Pain) Qty: 30 5RF Rx Instructions: place 1 tab under the tongue every 5 min. for up to 3 doses as needed for chest pain call 911 if pain persists cetirizine 10 mg tablet 10 mg PO DAILY PRN (Reason: allergy symptoms) Qty: 30 0RF albuterol sulfate 90 mcg/actuation HFA aerosol inhaler 2 puff INHALATION Q4H PRN (Reason: Shortness Of Breath Or Wheezing) Qty: 8.5 2RF duloxetine 60 mg capsule,delayed release(DR/EC) 60 mg PO BID Qty: 180 3RF clopidogrel 75 mg tablet 75 mg PO DAILY diclofenac sodium 1 % gel 2 g topical QID Rx Instructions: apply to single elbow, wrist or hand; for hand includes palm/fingers/back of hand ferrous gluconate 324 mg (37.5 mg iron) tablet 324 mg PO DAILY Qty: 30 5RF tramadol 50 mg tablet 50 mg PO QID PRN (Reason: pain) Qty: 120 0RF buspirone 30 mg Tablet 30 mg PO TID finasteride 5 mg Tablet 5 mg PO QAM epinephrine [EpiPen] 0.3 mg/0.3 mL Auto-Injector 0.3 mg IM Q3H PRN (Reason: Allergy Symptoms) lamotrigine 200 mg Tablet 200 mg PO HS atorvastatin [Lipitor] 40 mg Tablet 40 mg PO HS donepezil 10 mg Tablet 10 mg PO QAM alfuzosin 10 mg tablet extended release 24 hr 10 mg PO HS Hold Instructions: Resume on 06/21/24. held for orthostatic hypotension, resume when BP tolerates Rx Instructions: at bedtime for prostate symptoms. carvedilol 3.125 mg tablet 3.125 mg PO BID Hold Instructions: Resume on 06/21/24. held for orthostatic hypotension, resume when BP tolerates Rx Instructions: must administer with a meal/food mupirocin 2 % ointment 1 applic topical TID Qty: 15 0RF Rx Instructions: Apply a thin layer to the affected area 3 times daily. The area may be covered with gauze dressing. Continue for 1-2 weeks. timolol maleate (PF) 0.5 % Dropperette 1 drp OPHTHALMIC (EYE) HS dorzolamide (PF) 2 % Drops 1 drp OPHTHALMIC (EYE) HS glimepiride 1 mg tablet 2 mg PO BID latanoprost 0.005 % Drops 1 drp ophthalmic (eye) QAM Qty: 0 0RF Held gabapentin 800 mg tablet 800 mg PO TID Qty: 270 3RF Hold Instructions: Resume on 12/25/24. Trelegy Ellipta 200-62.5-25 mcg blister with device 1 inh inhalation DAILY Qty: 60 2RF Hold Instructions: Resume on 12/25/24. Discontinued pantoprazole 40 mg tablet,delayed release (DR/EC) 40 mg PO BID Qty: 60 5RF ondansetron HCl 4 mg tablet 4 mg PO BID PRN (Reason: nausea and vomiting) Patient Comments: CONFIRMED VV MED LIST AND W/ PT'S ON 06/02/24 insulin glargine [Lantus Solostar U-100 Insulin] 100 unit/mL (3 mL) insulin pen See Rx Instructions subcut BID Rx Instructions: 8 units in AM 28 units in PM - per Claudia HARTLEY 08/15 azithromycin 250 mg tablet 250 mg PO .COMPLEX MDD 2 5 Days Qty: 6 0RF Rx Instructions: STARTED 12/15/24 FOR 5 DAYS. 250 mg PO Two pills today pill daily for 4 more days.; Discharge Orders: Discharge Order (Routine); Ordered 12/18/24 Ordered By: Khurram Huerta Discharge Order- CHF (Routine); Ordered 12/18/24 Ordered By: Khurram Huerta Admission Data Admit Date/Time: 12/17/24 23:48 Attending Provider: Khurram Huerta Admit Provider: Martha Rivers Primary Care Provider: Leandro Rodrigues Other Providers: Martha Rivers Hospital Stay Data Consultations 12/17/24 23:02 ED Decision to Admit Stat Diagnostic Imagining Performed 12/17/24 21:18 CT head/brain wo con Stat Pending Results Patient Have Any Pending Studies at Discharge: Yes Discharge Instructions Given to Patient (Per Discharging Provider) See your PCP Dr. Leandro Rodrigues within 5-7 days of hospital discharge to follow up final results of blood culture #1 (12/17/2024, 10:57pm) and blood culture #2 (12/17/2024, 10:57pm). Total Time Total Time Spent Total Time Spent (In Minutes): 35 minutes. Of this time period, 19 minutes were spent in coordinating patient's discharge Coding Level of Care Code 55849 INP/OBS DISCH >30 MIN Diagnoses RLL pneumonia J18.9 Sepsis A41.9 Metabolic encephalopathy G93.41 Stage 3b chronic kidney disease N18.32
[2024-12-18] MEDS ORDERED: LANTUS PER UNIT CHARGE SQ SCH (21:00)
[2024-12-18] MEDS ORDERED: traZODone HCL 50 MG TAB PO SCH (21:00)
[2024-12-18] MEDS ORDERED: TIMOLOL MALEATE 0.5% OP SOLN 5 ML BTL OP SCH (21:00)
[2024-12-18] MEDS ORDERED: lamoTRIgine 100 MG TAB PO SCH (21:00)
[2024-12-18] MEDS ORDERED: ATORVASTATIN 40 MG TAB PO SCH (21:00)
[2024-12-18] MEDS ORDERED: DORZOLAMIDE HCL 2% OPH SOLN 10 ML BTL OP SCH (21:00)
[2024-12-18] MEDS ORDERED: cefTRIAXone SODIUM 2,000 MG/50 ML BAG IV SCH (22:00)
== END 2024-12-18 18:23 | disposition home or self-care (01) | DRG 871 ==
LOC: ED 20:27 → SUATTDRO 23:48 → 2S 23:48

== ENCOUNTER 2025-04-24 17:20 | Inpatient (IN) ==
--- NOTE | 2025-04-24 17:33 | Emergency Department Note ---
Impression & Plan Acute confusion, MDS (myelodysplastic syndrome), Acute hyperglycemia, Hypomagnesemia ED Provider Note NAME: PAXTON CHI AGE: 79 SEX: M : 1945 ARRIVES VIA: Walk-In INFORMANT: Patient, ED PROVIDER(S): Billy Spaulding MD CHIEF COMPLAINT: Confusion MEDICAL DECISION MAKING: Patient presents due to concern for confusion. IV was established and blood work was obtained. Patient was ordered 1500 of IV fluids. Patient's confusion is likely secondary to his noncompliance with his diabetes medication but CT head and screening chest x-ray also performed. Patient's blood work shows a white count of 22. Did review prior white counts which have been elevated in the past and does have a reported history of myelodysplastic syndrome likely secondary to this as the patient denies any infectious symptoms. Hemoglobin 9.5 chronic and stable with normal platelet count. Kidney function with some prerenal azotemia did receive IV fluids. Ordered additional 500 of IV fluids. Blood sugar was 308 was ordered 5 of IV insulin. Patient was also ordered magnesium oxide 800 mg p.o. Patient's chest x-ray and CT head are unremarkable at this time. Comment about sinusitis although the patient has not complained of any nasal drainage. I did speak the on-call hospitalist service as the patient has been confused and noncompliant with his diabetic regimen. I did speak with Dr. Rivers and the patient was admitted to the medicine service. Discussion w/ other healthcare providers: Dr. Rivers inpatient medicine service Prior /Outside records reviewed: None Differential diagnosis: Infection, dehydration, metabolic abnormality, hypo/hyperglycemia, electrolyte imbalance, anemia, UTI, pneumonia, thyroid dysfunction among others were considered. Diagnostics, as interpreted by me: ECG: Sinus with occasional a paced rhythm, rate of 99 wide QRS, right bundle francoise block pattern, Q waves noted. Cardiac monitoring: An order was placed for continuous cardiac monitoring. The monitor shows a rate of 102 with tachycardic and regular rhythm. Patient was placed on pulse oximetry Medical decision rules: None Imaging studies: I informally interpreted the patient's chest x-ray does not show obvious pneumonia with formal report to follow. HPI: Patient presents due to concern for confusion. The patient reportedly had a BSG greater than 500 at home. The patient reportedly is been noncompliant with his diabetic medication. Son at bedside reports that has been intermittently confused saying things like he was going to golf with his cousin who he had not seen as well as being with his cousin in [place] who he has not seen in some time. He also said that he was recently turkey hunting which was not accurate. Patient denies any chest pains or shortness of breath no nausea vomiting or diarrhea. No falls or trauma. Patient does take baby aspirin and Plavix. No other blood thinners. Patient reportedly has a gee which helps monitor his blood sugars he is unwilling to do fingersticks. [facility] reportedly [facility] which may be contributing to following his sugars. Son and at bedside to provide some of the history. PAST MEDICAL HISTORY: See Below PAST SURGICAL HISTORY: See Below SOCIAL HISTORY: See Below HOME MEDICATIONS: See Below ALLERGIES: See Below VITALS: See Below PHYSICAL EXAMINATION: GENERAL: NAD, non-toxic. EYE EXAM: Normal conjunctiva. PERRL, no anisocoria and EOM's grossly intact w/o pain. OROPHARYNX: Moist mucus membranes, grossly normal dentition. NECK: Trachea midline, no stridor. LUNGS: Clear to auscultation. Normal chest wall mechanics. HEART: NSR, no MRG. ABDOMEN: Abdomen soft, non-tender, no masses, no rebound or guarding. BACK: No CVA TTP. SKIN: No rashes and no bruising. UPPER EXTREMITIES: Upper extremities are grossly normal. LOWER EXTREMITIES: Grossly normal, no edema. NEURO EXAM: Awake and alert, follows commands, no obvious facial asymmetry, normal speech, moves all 4 extremities. Past Med/Surg History Problem List (Updated 04/25/25 @ 00:23 by Billy Spaulding MD) Hypomagnesemia (Acute) Acute hyperglycemia (Acute) MDS (myelodysplastic syndrome) (Acute) Acute confusion (Acute) Confusion Right pulmonary infiltrate on CXR Diabetes mellitus, type 2 per "not well controlled" Neurologic gait dysfunction Rhonchi at right lung base Cough Bilateral leg pain Seroma of musculoskeletal structure after musculoskeletal system procedure (Acute) Acute left lumbar radiculopathy (Acute) Cauda equina syndrome Urinary hesitancy Fusion of spine, lumbar region Acute blood loss anemia Gastric ulcer Myelodysplasia (myelodysplastic syndrome) Actinic keratoses History of pulmonary embolism Hip pain, right Heme positive stool Anemia (Acute) Cellulitis of leg, right (Acute) BPH w urinary obs/LUTS Ankle edema Anemia Neuropathic pain Peripheral arterial disease Lumbosacral radiculopathy at S1 Right foot pain Encounter for pre-operative examination Hyperproteinemia Olecranon bursitis, right elbow resolved Lightheadedness resolved Colon cancer screening Changing skin lesion removed from hand Scattered rhonchi of right lung Chronic low back pain Chronic anemia Diarrhea ongoing Medicare annual wellness visit, subsequent Olecranon bursitis, left elbow resolved Folate deficiency Vitamin B 12 deficiency Nonallergic rhinitis Allergic rhinitis Cervicalgia Paraproteinemia Chronic low back pain Proteinuria Nocturnal enuresis 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 Biventricular cardiac pacemaker in situ Chronic anemia Syncope and collapse happened once in 2020 Dementia Dyspnea on exertion Cardiomyopathy CAD, multiple vessel S/P coronary artery stent placement ~2001, SOB w/chest tightness, [facility], x2 stents; 2002, SOB w/chest tightness, [place], x2; 2003, SOB w/chest tightness, [place], x1 stent; 2004, SOB w/chest tightness, [place], x1 stent; 2009, SOB w/chest tightness, [place], x2 stents; 2011, SOB w/chest tightness, [place], x1 stent; 2013, SOB w/chest tightness, x2 stents, [place]; 2016, SOB w/chest tightness, [place], x1 stent; 2018, SOB w/chest tightness, x2 stents; 2019, SOB w/chest tightness, [facility], x4 stents; f/u dr. segura Squamous cell skin cancer Aneurysm of ascending aorta (Acute) monitoring currently; f/u dr. segura, [facility] Asthma with COPD (Acute) daily inh and prn inhaler Carotid artery stenosis (Acute) Generalized anxiety disorder (Acute) History of TIA (transient ischemic attack) (Acute) Hyperlipidemia (Acute) Benign essential hypertension (Acute) Myelodysplastic syndrome (Acute) PTSD (post-traumatic stress disorder) (Acute) S/P aortic valve replacement with bioprosthetic valve (Acute) S/P laparoscopic cholecystectomy (Acute) Depression BPH (benign prostatic hyperplasia) CKD (chronic kidney disease) (Acute) unsure of stage Pacemaker 2011, Placed after AVR due to complete heart block, [place] [facility]; [email or web address] Medical History COPD (chronic obstructive pulmonary disease) Metabolic encephalopathy RLL pneumonia Hypomagnesemia TAYLOR (acute kidney injury) Leukocytosis Pneumonia Sepsis Acute confusion Stage 3b chronic kidney disease TAYLOR (acute kidney injury) Lumbar spinal stenosis Left lumbar radiculopathy Orthostatic hypotension Hyperkalemia Acute alteration in mental status Foreign body of right heel Syncope and collapse happened once in 2020 Hx of squamous cell carcinoma Pulmonary embolism per "he never had one, thinks they ruled this out at one point in time" PTSD (post-traumatic stress disorder) PAD (peripheral artery disease) Orthostatic hypotension happens sometimes Hip pain, left ongoing, radiates down to foot Lumbosacral radiculopathy at S1 Hyperlipidemia Generalized anxiety disorder Depression CKD (chronic kidney disease) unsure of stage Chronic low back pain Chronic anemia Cervicalgia hx, no current issues Neuropathy Carotid artery stenosis Cardiomyopathy Biventricular cardiac pacemaker in situ Asthma with COPD daily and prn inh Ascending aortic aneurysm monitoring currently; f/u dr. segura, [facility] Hx-TIA (transient ischemic attack) 2019, slurred speech and confusion, brought to [facility]>no residual symtoms History of COVID-19 2019, tested thru PCP, not hosp; mild symptoms-diarrhea, cold symptoms>resolved Chronic bronchitis Leukocytosis hx CARTER (dyspnea on exertion) chronic Bicuspid aortic valve replaced with bioprosthetic valve Dementia "mild" BPH (benign prostatic hyperplasia) HTN (hypertension), benign CAD (coronary artery disease) Myocardial infarction 2011, SOB w/chest tightness and pain into shoulder and jaw, [facility], had cardiac cath w/2 stents Surgical History Hx of squamous cell carcinoma excision hand S/P cardiac pacemaker procedure History of back surgery x2, 05/10/2020 Grade 2 view with Mac 3 blade; both lower back History of tonsillectomy History of repair of rotator cuff right S/P right knee surgery H/O endoscopic retrograde cholangiopancreatography History of colonoscopy Hx of cholecystectomy H/O cardiac catheterization ~2001, SOB w/chest tightness, [facility], x2 stents; 2002, SOB w/chest tightness, [place], x2; 2003, SOB w/chest tightness, [place], x1 stent; 2004, SOB w/chest tightness, [place], x1 stent; 2009, SOB w/chest tightness, [place], x2 stents; 2011, SOB w/chest tightness, [facility], x1 stent; 2013, SOB w/chest tightness, x2 stents, [place]; 2015, SOB w/chest tightness, [place], x1 stent; 2018, SOB w/chest tightness, x2 stents; 2020, SOB w/chest tightness, [facility], x4 stents; f/u S/P aortic valve replacement 2011, [place]; f/u dr. segura Family History Sister Anxiety Brother Alcohol abuse Father Cardiac disorder Myocardial infarction Mother Depression Kidney disease Lung disease Stroke Other Family history non-contributory Denies family history of Ovarian cancer Prostate cancer Breast cancer Colorectal cancer Social History Smoking Status: Current every day smoker Tobacco Type: Cigarettes Age Started Using Tobacco: 16; Age Quit Using Tobacco: 64; packs per day: 2; Cigarettes Per Day: 1; Second Hand Exposure: No; Do You Dip or Chew Tobacco: Yes; Hx Alcohol Use: No Hx Substance Use: No Preferred Language: Ecuadorean Communication Ability: Effective Visual Impairment: Limited Hearing Ability: Use of Hearing Aid Librarian Required: No Beliefs That Will Affect Care: None marital status: Current Living Situation: Spouse Current Living Situation Comment: 1 story home, 2 steps to enter home Feels Safe at Home: Yes Childhood Exposure to Second-Hand Smoke: Yes Seatbelt Use: always Sunscreen Use: Yes Assistive Devices: Cane and Walker Allergies Allergies Allergy/AdvReac Type Severity Reaction Status Date / Time bee venom protein (honey bee) Allergy Severe SWELLING Verified 03/20/25 10:15 Sulfa (Sulfonamide Allergy Intermediate "SULFA": Verified 03/20/25 10:15 Antibiotics) RASH lisinopril Allergy Unknown CAN'T Verified 03/20/25 10:15 REMEMBER Penicillins Allergy Unknown CAN'T Verified 03/20/25 10:15 REMEMBER meloxicam AdvReac Severe renal Verified 03/20/25 10:15 failure codeine AdvReac Intermediate HALLUCINATI Verified 03/20/25 10:15 NG Home Meds Home Medications Medication Instructions Recorded Confirmed epinephrine 0.3 mg/0.3 mL 0.3 mg IM Q3H PRN Allergy Symptoms 10/21/18 04/24/25 injection, auto-injector (EpiPen) finasteride 5 mg tablet 5 mg PO QAM 10/21/18 04/24/25 atorvastatin 40 mg tablet (Lipitor) 40 mg PO HS 10/22/18 04/24/25 donepezil 10 mg tablet 10 mg PO QAM 10/22/18 04/24/25 lamotrigine 200 mg tablet 200 mg PO HS 10/22/18 04/24/25 buspirone 30 mg tablet 30 mg PO TID 07/21/20 04/24/25 carvedilol 3.125 mg tablet 3.125 mg PO BID 03/21/24 04/24/25 timolol maleate (PF) 0.5 % eye 1 drp ophthalmic (eye) HS 04/05/24 04/24/25 drops in a dropperette acetaminophen 500 mg tablet 500 - 1,000 mg PO Q6H PRN 06/02/24 04/24/25 (Acetaminophen Extra Strength) PAIN/FEVER glimepiride 1 mg tablet 2 mg PO BID 07/14/24 04/24/25 clopidogrel 75 mg tablet 75 mg PO DAILY 08/17/24 04/24/25 diclofenac sodium 1 % topical gel 2 g topical QID 08/28/24 04/24/25 aspirin 81 mg tablet,delayed 40.5 mg PO DAILY 12/19/24 04/24/25 release ondansetron HCl 4 mg tablet 4 mg PO BID PRN Nausea 12/19/24 04/24/25 pantoprazole 40 mg tablet,delayed 40 mg PO DAILY 03/01/25 04/24/25 release trazodone 50 mg tablet 50 mg PO HS 04/24/25 04/24/25 Previous Rx's Medication Instructions Recorded nitroglycerin 0.4 mg sublingual 0.4 mg sublingual Q5M PRN Chest 08/21/20 tablet (Nitrostat) Pain #30 tabs cetirizine 10 mg tablet 10 mg PO DAILY PRN allergy 11/18/21 symptoms #30 tabs mupirocin 2 % topical ointment 1 applic topical TID #15 grams 03/23/24 duloxetine 60 mg capsule,delayed 60 mg PO BID #180 caps 04/23/24 release latanoprost 0.005 % eye drops 1 drp ophthalmic (eye) QAM #0 mL 05/24/24 gabapentin 800 mg tablet 800 mg PO TID #270 tabs 06/28/24 ferrous gluconate 324 mg (37.5 mg 324 mg PO DAILY #30 tabs 07/21/24 iron) tablet methocarbamol 750 mg tablet 750 mg PO TID PRN muscle spasm #90 10/16/24 tabs albuterol sulfate 90 mcg/actuation 2 puff inhalation Q4H PRN 11/03/24 aerosol inhaler Shortness Of Breath Or Wheezing #8.5 grams fluticasone fur. 200 mcg-umeclid 1 inh inhalation DAILY #60 ea 12/15/24 62.5 mcg-vilant 25 mcg inhalat.powder (Trelegy Ellipta) insulin glargine 100 unit/mL 20 unit (0.2 mL) subcut QPM #10 mL 12/19/24 subcutaneous solution (Lantus U-100 Insulin) memantine 5 mg tablet 5 mg PO BID #180 tabs 03/12/25 tramadol 50 mg tablet 50 mg PO QID PRN pain #120 tabs 03/12/25 Results & Data (ED) Vital Signs Vital Signs - 24 hr 04/24/25 17:25 04/24/25 17:38 04/24/25 17:56 Temperature 36.3 C L Temperature Source Temporal Artery Scan Pulse Rate 90 103 H Pulse Rate [Apical] 101 H Pulse Rhythm Pulse Rhythm [Apical] Regular Pulse Strength [Apical] Normal Respiratory Rate 18 20 Respiratory Effort / Characteristics Non-Labored Spontaneous Non-Labored Spontaneous Respiratory Depth Normal Normal Respiratory Pattern Regular Blood Pressure 130/77 Blood Pressure [Right Arm] 153/98 H Blood Pressure Mean 94 Blood Pressure Mean [Right Arm] 116 Blood Pressure Position [Right Arm] Lying Pulse Oximetry 99 95 Oxygen Delivery Method Room Air Room Air Sepsis Recent Fever Within 48 Hours No Sepsis New/Unexplained Change in Mental Status N/A Sepsis Action Taken by Nursing No Action Required 04/24/25 18:00 Temperature Temperature Source Pulse Rate 101 H Pulse Rate [Apical] Pulse Rhythm Regular Pulse Rhythm [Apical] Pulse Strength [Apical] Respiratory Rate 25 H Respiratory Effort / Characteristics Respiratory Depth Respiratory Pattern Blood Pressure Blood Pressure [Right Arm] Blood Pressure Mean Blood Pressure Mean [Right Arm] Blood Pressure Position [Right Arm] Pulse Oximetry 98 Oxygen Delivery Method Room Air Sepsis Recent Fever Within 48 Hours Sepsis New/Unexplained Change in Mental Status Sepsis Action Taken by Care Home Medications Current Medication List: was personally reviewed by me Laboratory Data Attestation: I reviewed the patient's lab results. 04/24/25 18:01 04/24/25 18:01 Lab Results 04/24/25 04/24/25 04/24/25 Range/Units 17:27 18:01 19:13 WBC 22.36 H (4.8-10.8) K/ul RBC 3.05 L (4.70-6.10) M/uL Hgb 9.5 L (14.0-18.0) g/dl Hct 29.6 L (42.0-52.0) % MCV 97.0 (80.0-100.0) fL MCH 31.1 (25.0-34.0) pg MCHC 32.1 (32.0-36.0) g/dL RDW Std Deviation 75.0 H (36.4-46.3) fL RDW Coeff of Linda 21.2 H (11.5-14.5) % Plt Count 267 (130-400) K/uL MPV 11.6 (9.4-12.4) fL Immature Gran % (Auto) 0.4 % Neut % (Auto) 84.9 % Lymph % (Auto) 7.4 % [place] % (Auto) 6.7 % Eos % (Auto) 0.2 % Baso % (Auto) 0.4 % Neut # (Auto) 18.99 H (1.40-6.50) K/uL Lymph # (Auto) 1.65 (1.20-3.40) K/uL [place] # (Auto) 1.50 H (0.11-0.59) K/uL Eos # (Auto) 0.04 (0.00-0.50) K/uL Baso # (Auto) 0.08 (0.00-0.20) K/uL Immature Gran # (Auto) 0.10 (0.01-0.20) K/uL Absolute Nucleated RBC 0.06 (0.00-0.12) K/uL Nucleated RBC % (auto) 0.3 % Anisocytosis Present Ovalocytes 1+ Sodium 131 L (136-145) mmol/L Potassium 4.9 (3.5-5.1) mmol/L Chloride 98 (98-107) mmol/L Carbon Dioxide 26 (21-32) mmol/L Anion Gap 7 (3-11) BUN 30 H (6-23) mg/dl Creatinine 1.39 (0.6-1.4) mg/dl Est Cr Clr Drug Dosing 46.6 ml/min eGFR 51.89 BUN/Creatinine Ratio 21.6 H (10-20) Glucose 371 H* (70-99(Fasting)) mg/dl POC Glucose 431 H* 303 H* (70-99) mg/dl Osmolality 303 H (280-300) mOsm/kg Calcium 9.0 (8.6-10.3) mg/dl Magnesium 1.4 L (1.7-2.4) mg/dl Total Bilirubin 2.2 H (0.2-1.0) mg/dl AST 13 (13-39) U/L ALT 12 (7-52) U/L Alkaline Phosphatase 122 H (34-104) U/L Total Protein 8.3 (6.0-8.3) gm/dl Albumin 4.4 (3.4-5.0) gm/dl Globulin 3.9 (2.5-4.0) gm/dl Albumin/Globulin Ratio 1.1 (0.9-2) TSH 0.840 (0.300-4.500) uIu/ml Urine Color Yellow Urine Appearance Clear (Clear) Urine pH 5.5 (4.5-7.5) Ur Specific [place] 1.023 (1.000-1.030) Urine Protein Trace H (Negative) Urine Glucose (UA) 3+ H (Negative) Urine Ketones Negative (Negative) Urine Blood Negative (Negative) Urine Nitrite Negative (Negative) Urine Bilirubin Negative (Negative) Urine Urobilinogen Negative (Negative) Ur Leukocyte Esterase Negative (Negative) Urine WBC (Auto) 0-5 (0-5) /hpf Urine RBC (Auto) 0-2 (0-2) /hpf U Hyaline Cast (Auto) 0-2 (0-2) /lpf U Epithel Cells (Auto) 0-2 (0-2) /hpf Urine Bacteria (Auto) None Seen (None Seen) Urine Comment Administered Medications Acetaminophen (Acetaminophen 500 Mg Tab) 1,000 mg PO TID [facility] Stop: 05/24/25 21:40 Last Admin: 04/24/25 22:33 Dose: 1,000 mg Documented By: PNM Atorvastatin Calcium (Atorvastatin 40 Mg Tab) 40 mg PO HS [facility] Stop: 05/24/25 21:40 Last Admin: 04/24/25 22:28 Dose: 40 mg Documented By: PNM Buspirone HCl (Buspirone 15 Mg Tab) 30 mg PO TID [place] Stop: 05/24/25 21:40 Last Admin: 04/24/25 22:27 Dose: 30 mg Documented By: PNM Carvedilol (Carvedilol 3.125 Mg Tab) 3.125 mg PO BID [facility] Stop: 05/24/25 21:40 Last Admin: 04/24/25 22:29 Dose: 3.125 mg Documented By: PASCUALM Diclofenac Sodium (Diclofenac Sod 1% Gel 100 Gm Tube) 2 gm EXT QID [facility]; Protocol Stop: 05/24/25 21:40 Last Admin: 04/25/25 00:03 Dose: Not Given Documented By: PNM Duloxetine HCl (Duloxetine Hcl 60 Mg Cap) 60 mg PO BID [facility] Stop: 05/24/25 21:40 Last Admin: 04/24/25 22:29 Dose: 60 mg Documented By: PNM Enoxaparin Sodium (Enoxaparin Inj 40 Mg/0.4 Ml Syr) 40 mg SQ HS [facility] Stop: 05/24/25 21:44 Last Admin: 04/24/25 22:29 Dose: 40 mg Documented By: PNM Ceftriaxone Sodium (Rocephin) 2,000 mg in 50 mls @ 100 mls/hr IV Q24H [facility] Stop: 04/26/25 22:29 Last Infusion: 04/25/25 00:04 Dose: Infused Documented By: Admin: 04/24/25 23:21 Dose: 100 mls/hr Documented By: PNMian Insulin Aspart (Insulin Aspart Per Unit Charge) 0 units SC ACHS [facility] Stop: 05/24/25 21:40 Last Admin: 04/24/25 22:37 Dose: Not Given Documented By: PNM Insulin Glargine (Lantus Per Unit Charge) 10 units SQ BID [facility] Stop: 05/24/25 21:40 Last Admin: 04/24/25 22:45 Dose: 10 units Documented By: PNMian Co-signed By: LRA Lamotrigine (Lamotrigine 100 Mg Tab) 200 mg PO HS [facility]; Protocol Stop: 05/24/25 21:40 Last Admin: 04/24/25 22:28 Dose: 200 mg Documented By: GALLO Memantine (Memantine Hcl 5 Mg Tab) 5 mg PO BID [facility] Stop: 05/24/25 21:40 Last Admin: 04/24/25 22:26 Dose: 5 mg Documented By: PNMian Discontinued Medications Haloperidol (Haloperidol 5 Mg Tab) 5 mg PO NOW STA Stop: 04/24/25 21:07 Last Admin: 04/24/25 22:39 Dose: Not Given Documented By: GALLO Haloperidol Lactate (Haloperidol Lactate 5 Mg/Ml 1 Ml Vial) 5 mg IM NOW STA Stop: 04/24/25 21:48 Last Admin: 04/24/25 21:56 Dose: 5 mg Documented By: RICARDO Sodium Chloride (Nss) 1,000 mls @ 999 mls/hr IV .Q1H1M [facility] Stop: 04/24/25 19:00 Last Infusion: 04/24/25 19:22 Dose: Infused Documented By: Admin: 04/24/25 17:58 Dose: 999 mls/hr Documented By: BELEN Sodium Chloride (Nss) 500 mls @ 999 mls/hr IV .Q31M [facility] Stop: 04/24/25 18:30 Last Infusion: 04/24/25 19:23 Dose: Infused Documented By: Admin: 04/24/25 17:57 Dose: 999 mls/hr Documented By: BELEN Sodium Chloride (Nss) 500 mls @ 999 mls/hr IV .Q31M ONE Stop: 04/24/25 19:41 Last Infusion: 04/24/25 23:07 Dose: Infused Documented By: Admin: 04/24/25 19:32 Dose: 999 mls/hr Documented By: BELEN Insulin Human Regular (Novolin-R Insulin Per Unit Charge) 10 units IV NOW STA Stop: 04/24/25 19:12 Last Admin: 04/24/25 19:23 Dose: Not Given Documented By: BELEN Insulin Human Regular (Novolin-R Insulin Per Unit Charge) 5 units IV NOW STA Stop: 04/24/25 19:16 Last Admin: 04/24/25 19:34 Dose: 5 units Documented By: BELEN Co-signed By: MED Magnesium Oxide (Magnesium Oxide 400 Mg Tab) 800 mg PO NOW STA Stop: 04/24/25 19:18 Last Admin: 04/24/25 19:32 Dose: 800 mg Documented By: WAMian Imaging Data Radiologist's Impression: Chest X-Ray 04/24/25 17:48 Chest radiograph, one view History: Weakness Comparison: 12/17/2024 Findings: Single AP view of the chest performed. No focal consolidation or pleural effusion. Left chest wall 3-lead AICD. There are median sternotomy wires. No pneumothorax. The cardiomediastinal silhouette is within normal limits. Normal pulmonary vascularity. No evidence for lymphadenopathy. No visualized bony or soft tissue abnormality. Impression: Normal chest radiograph Electronically signed by Sanjiv Sheets 04-24-2025 7:[address] 04/24/25 17:48 Clinical History: Confusion. Technique: Axial computed tomography images were obtained of the brain from the vertex to the skull base without intravenous contrast. Findings: There is no sign of intracranial hemorrhage. There is normal gibbs-white matter differentiation with no sign of acute or old infarction. No midline shift or other form of herniation is identified. There is no hydrocephalus. No obvious mass lesion is seen on this noncontrast examination. There is near compete opacification of the right sphenoid sinus. The mastoid air cells appear clear Impression: 1. Sphenoid sinusitis 2. Otherwise unremarkable noncontrast CT of the brain ACT 112: Positive. There are findings on this exam that require communication between the performing entity and the patient following Patient Test Result Information Act ([place] ACT 112) guidelines. Electronically signed by Tashi Bob 04-24-2025 7:08 PM Discharge Plan Visit Data Chief Complaint: Hyperglycemia Stated Complaint: AMS BLOOD SUGAR HIGH ED Provider: Billy Spaulding Discharge Problem: Acute confusion, MDS (myelodysplastic syndrome), Acute hyperglycemia, Hypomagnesemia Patient Disposition: Admitted As Inpatient Condition: Good Discharge Instructions Interventions: ED Discharge Assessment Last Done: 04/24/25 21:11
[2025-04-24] MEDS: SODIUM CHLORIDE 0.9% 500 ML IV SCH (17:57)
[2025-04-24] MEDS: SODIUM CHLORIDE 0.9% 1,000 ML IV SCH (17:58)
[2025-04-24 18:16] LABS: Hematocrit (blood only) 29.6 % (42.0-52.0); Hemoglobin 9.5 g/dl (14.0-18.0); Immature Granulocytes # (auto) 0.10 K/uL (0.01-0.20); Immature Granulocytes % (auto) 0.4 %; Mean Corpuscular Hemoglobin 31.1 pg (25.0-34.0); Mean Corpuscular Volume 97.0 fL (80.0-100.0); Platelet Count 267 K/uL (130-400); RDW Standard Deviation 75.0 fL (36.4-46.3); Red Blood Count 3.05 M/uL (4.70-6.10); White Blood Count 22.36 K/ul (4.8-10.8)
[2025-04-24 18:17] LABS: Appearance Urine Clear (Clear); Bacteria Urine Automated None Seen (None Seen); Cast Urine Automated 0-2 /lpf (0-2); Epithelial Cell Urine Auto 0-2 /hpf (0-2); Glucose Urine UA 3+ (Negative); RBC Urine Automated 0-2 /hpf (0-2); WBC Urine Automated 0-5 /hpf (0-5)
[2025-04-24 18:37] LABS: Anisocytosis Present; Ovalocytes 1+
[2025-04-24 18:38] LABS: Alanine Aminotransferase 12.0 U/L (7-52); Albumin Globulin Ratio 1.1 (0.9-2); Alkaline Phosphatase 122.0 U/L (34-104); Anion Gap 7.0 (3-11); Bilirubin,Total 2.2 mg/dl (0.2-1.0); Blood Urea Nitrogen 30.0 mg/dl (6-23); Calcium 9.0 mg/dl (8.6-10.3); Carbon Dioxide 26.0 mmol/L (21-32); Chloride 98.0 mmol/L (98-107); Creatinine Clr Calc Pharmacy 46.6 ml/min; Globulin 3.9 gm/dl (2.5-4.0); Glucose 371.0 mg/dl (70-99(Fasting)); Magnesium 1.4 mg/dl (1.7-2.4); Potassium 4.9 mmol/L (3.5-5.1); Sodium 131.0 mmol/L (136-145); Total Protein 8.3 gm/dl (6.0-8.3)
--- NOTE | 2025-04-24 19:02 | XRay Report ---
Chest radiograph, one view History: Weakness Comparison: 12/17/2024 Findings: Single AP view of the chest performed. No focal consolidation or pleural effusion. Left chest wall 3-lead AICD. There are median sternotomy wires. No pneumothorax. The cardiomediastinal silhouette is within normal limits. Normal pulmonary vascularity. No evidence for lymphadenopathy. No visualized bony or soft tissue abnormality. Impression: Normal chest radiograph Electronically signed by Sanjiv Sheets 04-24-2025 7:02 PM
[2025-04-24 19:03] LABS: Thyroid Stimulating Hormone 0.84 uIu/ml (0.300-4.500)
--- NOTE | 2025-04-24 19:08 | CT Scan Report ---
Clinical History: Confusion. Technique: Axial computed tomography images were obtained of the brain from the vertex to the skull base without intravenous contrast. Findings: There is no sign of intracranial hemorrhage. There is normal gibbs-white matter differentiation with no sign of acute or old infarction. No midline shift or other form of herniation is identified. There is no hydrocephalus. No obvious mass lesion is seen on this noncontrast examination. There is near compete opacification of the right sphenoid sinus. The mastoid air cells appear clear Impression: 1. Sphenoid sinusitis 2. Otherwise unremarkable noncontrast CT of the brain ACT 112: Positive. There are findings on this exam that require communication between the performing entity and the patient following Patient Test Result Information Act ([place] ACT 112) guidelines. Electronically signed by Tashi Bob 04-24-2025 7:08 PM
[2025-04-24] MEDS: NovoLIN-R INSULIN PER UNIT CHARGE IV STA ×2 (19:23→19:34)
[2025-04-24] MEDS: SODIUM CHLORIDE 0.9% 500 ML IV ONE (19:32)
[2025-04-24] MEDS: MAGNESIUM OXIDE 400 MG TAB PO STA (19:32)
--- NOTE | 2025-04-24 20:13 | History & Physical Report ---
Date of Service April 24, 2025 Assessment & Plan (1) Diabetes mellitus, type 2: (2) Confusion: (3) Myelodysplasia (myelodysplastic syndrome): (4) CAD, multiple vessel: (5) Asthma with COPD: (6) HTN (hypertension), benign: Plan 79yo male with history of poorly controlled DM, CAD, HTN presenting with one day of worsening confusion and gait instability. Patient with hyper glycemia at home, reported to be in the 500's. Son states that patient is non-compliant with his home medications and has not taken his insulin for several weeks. His blood sugars are usually in the 300's but are more elevated today. #Diabetes with hyperglycemia - likely secondary to medication non-adherence. Blood sugars reported to be in the 500's at home. No anion gap, serum bicarbonate is WNL at 26. Some concern for infection although no obvious source. He has been given IVF which has improved glucose significantly as well as 5u IV insulin. On Lantus 20u qHS at home as well as Glimepiride. Last HgbA1C on record from 01/26/25 = 9.7 -Admit to medical -Check osmolality - do not strongly suspect HHS as reason for patients confusion -Lantus 10u BID -ISS -Goal blood sugar 110 - 180 - ordered for q2hr blood sugar test for now until stabilized -Check Hgba1C -[facility] an [facility] Ramiro prescription and see why he has not received a new one #Confusion/Acute encephalopathy/Dementia - son reports that patient has underlying dementia. He has episodes of confusion but states that this has been the worse by far. Also has not experienced gait instability to this degree. Possibly secondary to underlying infection, medication non-adherence, hyperglycemia -Will hold Trazodone, Tramadol, Methocarbamol and Gabapentin for now -Management of hyperglycemia with insulin as above -Empiric Ceftriaxone -Delirium prevention strategies -Continue home Aricept, Namenda and Cymbalta -Continue Buspirone 30mg po TID #PTSD and Memory issues - patient follows with [facility]. [facility] -Continue Donepezil and Memantine -Continue Buspirone and Duloxetine -Continue Lamictal #Mild elevation of ALP and Bilirubin - no abdominal pain -Check RUQUS -Empiric Ceftriaxone #CAD - patient denies chest pain -Continue home dose of ASA 40.5mg daily and Plavix 75mg po daily -Continue Atorvastatin 40mg po qHS -Continue Carvedilol 3.125mg po BID #COPD/Asthma - mild cough, patient denies SOB or wheeze -Continue Trelegy or formulary equivalent -Continue Albuterol #BPH -Continue Finasteride 5mg po daily -Bladder scan as needed F/E/N- patient received IVF in the ER. Is able to eat and drink. Will hold further IVF at this time. Received PO magnesium. CC diet as tolerated Ppx - History of VTE, Lovenox Code - DNR/DNI History of Present Illness Chief Complaint: confusion Primary Care Provider: Leandro Rodrigues MD Chencho Wright is a 79yo male with history of COPD, DM, myelodysplastic syndrome, HTN and HLP presenting from home with one day of progressive confusion. Patient's son and are at bedside and present history. Patient states that he feels fine and does not want to be in the hospital. Over the last day patient has been experiencing more confusion, possible hallucinations. His son states that he is telling stories that aren't true - said that he went out turkey hunting yesterday and then played golf with his family (which he did not). No report of fever, chills, KULKARNI, chest pain, SOB, nausea, vomiting, diarrhea or constipation. reports that he has had a slight dry cough. Also with worsening gait instability but otherwise no complaints. Patient is not compliant with his medications. Son states that he takes however much insulin he thinks he needs. [facility] and, unfortunately, they have not sent him a replacement Ramiro for the last month. Son does not think he has taken his insulin for the last month. No report of hypoglycemia. In the ER he is afebrile, elevated HR at 101, Blood pressure stable, adequate oxygenation on room air Patient did become somewhat agitated on several occasions, asking to leave the hospital Was a CODE MAGGI upon arrival to the floor room 301-1 - Haldol 5mg IM given ER Course: NSS x 2L Insulin 5u IV Magnesium 800mg PO Haldol 5mg IM Allergies Allergy/AdvReac Type Severity Reaction Status Date / Time bee venom protein (honey bee) Allergy Severe SWELLING Verified 03/20/25 10:15 Sulfa (Sulfonamide Allergy Intermediate "SULFA": Verified 03/20/25 10:15 Antibiotics) RASH lisinopril Allergy Unknown CAN'T Verified 03/20/25 10:15 REMEMBER Penicillins Allergy Unknown CAN'T Verified 03/20/25 10:15 REMEMBER meloxicam AdvReac Severe renal Verified 03/20/25 10:15 failure codeine AdvReac Intermediate HALLUCINATI Verified 03/20/25 10:15 NG Home Medications Medication Instructions Recorded Confirmed Type epinephrine 0.3 mg/0.3 mL 0.3 mg IM Q3H PRN Allergy Symptoms 10/21/18 04/24/25 History injection, auto-injector (EpiPen) finasteride 5 mg tablet 5 mg PO QAM 10/21/18 04/24/25 History atorvastatin 40 mg tablet (Lipitor) 40 mg PO HS 10/22/18 04/24/25 History donepezil 10 mg tablet 10 mg PO QAM 10/22/18 04/24/25 History lamotrigine 200 mg tablet 200 mg PO HS 10/22/18 04/24/25 History buspirone 30 mg tablet 30 mg PO TID 07/21/20 04/24/25 History nitroglycerin 0.4 mg sublingual 0.4 mg sublingual Q5M PRN Chest 08/21/2004/24 Rx tablet (Nitrostat) Pain #30 tabs cetirizine 10 mg tablet 10 mg PO DAILY PRN allergy 11/18/21 04/24/25 Rx symptoms #30 tabs carvedilol 3.125 mg tablet 3.125 mg PO BID 03/21/24 04/24/25 History mupirocin 2 % topical ointment 1 applic topical TID #15 grams 03/23/24 04/24/25 Rx timolol maleate (PF) 0.5 % eye 1 drp ophthalmic (eye) HS 04/05/24 04/24/25 History drops in a dropperette duloxetine 60 mg capsule,delayed 60 mg PO BID #180 caps 04/23/24 04/24/25 Rx release latanoprost 0.005 % eye drops 1 drp ophthalmic (eye) QAM #0 mL 05/24/24 04/24/25 Rx acetaminophen 500 mg tablet 500 - 1,000 mg PO Q6H PRN 06/02/24 04/24/25 History (Acetaminophen Extra Strength) PAIN/FEVER gabapentin 800 mg tablet 800 mg PO TID #270 tabs 06/28/24 04/24/25 Rx glimepiride 1 mg tablet 2 mg PO BID 07/14/24 04/24/25 History ferrous gluconate 324 mg (37.5 mg 324 mg PO DAILY #30 tabs 07/21/24 04/24/25 Rx iron) tablet clopidogrel 75 mg tablet 75 mg PO DAILY 08/17/24 04/24/25 History diclofenac sodium 1 % topical gel 2 g topical QID 08/28/24 04/24/25 History methocarbamol 750 mg tablet 750 mg PO TID PRN muscle spasm #90 10/16/24 04/24/25 Rx tabs albuterol sulfate 90 mcg/actuation 2 puff inhalation Q4H PRN 11/03/24 04/24/25 Rx aerosol inhaler Shortness Of Breath Or Wheezing #8.5 grams fluticasone fur. 200 mcg-umeclid 1 inh inhalation DAILY #60 ea 12/15/24 04/24/25 Rx 62.5 mcg-vilant 25 mcg inhalat.powder (Trelegy Ellipta) aspirin 81 mg tablet,delayed 40.5 mg PO DAILY 12/19/24 04/24/25 History release insulin glargine 100 unit/mL 20 unit (0.2 mL) subcut QPM #10 mL 12/19/24 04/24/25 Rx subcutaneous solution (Lantus U-100 Insulin) ondansetron HCl 4 mg tablet 4 mg PO BID PRN Nausea 12/19/24 04/24/25 History pantoprazole 40 mg tablet,delayed 40 mg PO DAILY 03/01/25 04/24/25 History release memantine 5 mg tablet 5 mg PO BID #180 tabs 03/12/25 04/24/25 Rx tramadol 50 mg tablet 50 mg PO QID PRN pain #120 tabs 03/12/25 04/24/25 Rx trazodone 50 mg tablet 50 mg PO HS 04/24/25 04/24/25 History Past Med/Surg History Problem List (Updated 04/24/25 @ 22:14 by Martha Rivers DO) Confusion Right pulmonary infiltrate on CXR Diabetes mellitus, type 2 per "not well controlled" Neurologic gait dysfunction Rhonchi at right lung base Cough Bilateral leg pain Seroma of musculoskeletal structure after musculoskeletal system procedure (Acute) Acute left lumbar radiculopathy (Acute) Cauda equina syndrome Urinary hesitancy Fusion of spine, lumbar region Acute blood loss anemia Gastric ulcer Myelodysplasia (myelodysplastic syndrome) Actinic keratoses History of pulmonary embolism Hip pain, right Heme positive stool Anemia (Acute) Cellulitis of leg, right (Acute) BPH w urinary obs/LUTS Ankle edema Anemia Neuropathic pain Peripheral arterial disease Lumbosacral radiculopathy at S1 Right foot pain Encounter for pre-operative examination Hyperproteinemia Olecranon bursitis, right elbow resolved Lightheadedness resolved Colon cancer screening Changing skin lesion removed from hand Scattered rhonchi of right lung Chronic low back pain Chronic anemia Diarrhea ongoing Medicare annual wellness visit, subsequent Olecranon bursitis, left elbow resolved Folate deficiency Vitamin B 12 deficiency Nonallergic rhinitis Allergic rhinitis Cervicalgia Paraproteinemia Chronic low back pain Proteinuria Nocturnal enuresis 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 Biventricular cardiac pacemaker in situ Chronic anemia Syncope and collapse happened once in 2020 Dementia Dyspnea on exertion Cardiomyopathy CAD, multiple vessel S/P coronary artery stent placement ~2001, SOB w/chest tightness, [facility], x2 stents; 2002, SOB w/chest tightness, [place], x2; 2003, SOB w/chest tightness, [place], x1 stent; 2004, SOB w/chest tightness, [place], x1 stent; 2009, SOB w/chest tightness, [place], x2 stents; 2011, SOB w/chest tightness, [place] [facility], x1 stent; 2013, SOB w/chest tightness, x2 stents, [place]; 2016, SOB w/chest tightness, [place], x1 stent; 2018, SOB w/chest tightness, x2 stents; 2020, SOB w/chest tightness, [facility], x4 stents; f/u dr. segura Squamous cell skin cancer Aneurysm of ascending aorta (Acute) monitoring currently; [place] [facility] [place]hma with COPD (Acute) daily inh and prn inhaler Carotid artery stenosis (Acute) Generalized anxiety disorder (Acute) History of TIA (transient ischemic attack) (Acute) Hyperlipidemia (Acute) Benign essential hypertension (Acute) Myelodysplastic syndrome (Acute) PTSD (post-traumatic stress disorder) (Acute) S/P aortic valve replacement with bioprosthetic valve (Acute) S/P laparoscopic cholecystectomy (Acute) Depression BPH (benign prostatic hyperplasia) CKD (chronic kidney disease) (Acute) unsure of stage Pacemaker 2011, Placed after AVR due to complete heart block, [facility]; [employer] Medical History COPD (chronic obstructive pulmonary disease) Metabolic encephalopathy RLL pneumonia Hypomagnesemia TAYLOR (acute kidney injury) Leukocytosis Pneumonia Sepsis Acute confusion Stage 3b chronic kidney disease TAYLOR (acute kidney injury) Lumbar spinal stenosis Left lumbar radiculopathy Orthostatic hypotension Hyperkalemia Acute alteration in mental status Foreign body of right heel Syncope and collapse happened once in 2020 Hx of squamous cell carcinoma Pulmonary embolism per "he never had one, thinks they ruled this out at one point in time" PTSD (post-traumatic stress disorder) PAD (peripheral artery disease) Orthostatic hypotension happens sometimes Hip pain, left ongoing, radiates down to foot Lumbosacral radiculopathy at S1 Hyperlipidemia Generalized anxiety disorder Depression CKD (chronic kidney disease) unsure of stage Chronic low back pain Chronic anemia Cervicalgia hx, no current issues Neuropathy Carotid artery stenosis Cardiomyopathy Biventricular cardiac pacemaker in situ Asthma with COPD daily and prn inh Ascending aortic aneurysm monitoring currently; [place] [facility] [place]x-TIA (transient ischemic attack) 2019, slurred speech and confusion, brought to [facility]>no residual symtoms History of COVID-2019, tested thru PCP, not hosp; mild symptoms-diarrhea, cold symptoms>resolved Chronic bronchitis Leukocytosis hx CARTER (dyspnea on exertion) chronic Bicuspid aortic valve replaced with bioprosthetic valve Dementia "mild" BPH (benign prostatic hyperplasia) HTN (hypertension), benign CAD (coronary artery disease) Myocardial infarction 2012, SOB w/chest tightness and pain into shoulder and jaw, phan gene ral, had cardiac cath w/2 stents Surgical History Hx of squamous cell carcinoma excision hand S/P cardiac pacemaker procedure History of back surgery x2, 05/10/2020 Grade 2 view with Mac 3 blade; both lower back History of tonsillectomy History of repair of rotator cuff right S/P right knee surgery H/O endoscopic retrograde cholangiopancreatography History of colonoscopy Hx of cholecystectomy H/O cardiac catheterization ~2001, SOB w/chest tightness, [facility], x2 stents; 2002, SOB w/chest tightness, [place], x2; 2003, SOB w/chest tightness, [place], x1 stent; 2004, SOB w/chest tightness, [place], x1 stent; 2009, SOB w/chest tightness, [place], x2 stents; 2011, SOB w/chest tightness, [place], x1 stent; 2013, SOB w/chest tightness, x2 stents, [place]; 2015, SOB w/chest tightness, [place], x1 stent; 2017, SOB w/chest tightness, x2 stents; 2019, SOB w/chest tightness, [facility], x4 stents; f/u S/P aortic valve replacement 2011, [place] [facility]; f/u dr. segura Family History Sister Anxiety Brother Alcohol abuse Father Cardiac disorder Myocardial infarction Mother Depression Kidney disease Lung disease Stroke Other Family history non-contributory Denies family history of Ovarian cancer Prostate cancer Breast cancer Colorectal cancer Social History Smoking Status: Current every day smoker Tobacco Type: Cigarettes Age Started Using Tobacco: 16; Age Quit Using Tobacco: 64; packs per day: 2; Cigarettes Per Day: 1; Second Hand Exposure: No; Do You Dip or Chew Tobacco: Yes; Hx Alcohol Use: No Hx Substance Use: No Preferred Language: Citizen Of [place] Communication Ability: Effective Visual Impairment: Limited Hearing Ability: Use of Hearing Aid Clothes Designer Required: No Beliefs That Will Affect Care: None marital status: Current Living Situation: Spouse Current Living Situation Comment: 1 story home, 2 steps to enter home Feels Safe at Home: Yes Childhood Exposure to Second-Hand Smoke: Yes Seatbelt Use: always Sunscreen Use: Yes Assistive Devices: Cane and Walker Review of Systems Review of Systems: All systems reviewed & are unremarkable except as noted in HPI & below Physical Exam Physical Exam: General: patient resting comfortably, NAD, non-toxic in appearance, answers questions appropriately, oriented x 2 Skin: warm, dry, intact, no rashes or lesions HEENT: NC/AT, PERRL, EOMI, anicteric sclera, conjunctiva without injection, external ear normal to inspection and nontender, nares patent, moist mucus membranes, dentition intact, no oropharyngeal lesions, neck supple, trachea midline, no LAD, no thyromegaly, no JVD Heart: +S1/S2, regular, no m/r/g Lungs: equal air entry bilaterally, no rales/rhonchi/wheezes Abd: +BS, soft, NT/ND, no masses/organomegaly/ascites Ext: warm, 2+ pulses in UE/LE bilaterally, no clubbing/cyanosis or edema Neuro: nonfocal, patient AA&O x 2, speech intact, no facial droop, moving all extremities on command with equal strength 5/5 Walks with unsteady gait Results & Data Results & Data Vital Signs (Past 12 Hours) Vital Signs Temp Pulse Pulse Resp BP BP Pulse Ox 04/24/25 18:00 101 H 25 H 98 04/24/25 17:56 103 H 04/24/25 17:38 101 H 20 153/98 H 95 04/24/25 17:25 36.3 C L 90 18 130/77 99 O2 Del Method 04/24/25 18:00 Room Air 04/24/25 17:56 04/24/25 17:38 Room Air 04/24/25 17:25 Room Air Laboratory Results Laboratory Results WBC 22.36 K/ul (4.8-10.8) H 04/24/25 18:01 RBC 3.05 M/uL (4.70-6.10) L 04/24/25 18:01 Hgb 9.5 g/dl (14.0-18.0) L 04/24/25 18:01 Hct 29.6 % (42.0-52.0) L 04/24/25 18:01 MCV 97.0 fL (80.0-100.0) 04/24/25 18:01 MCH 31.1 pg (25.0-34.0) 04/24/25 18:01 MCHC 32.1 g/dL (32.0-36.0) 04/24/25 18:01 RDW Std Deviation 75.0 fL (36.4-46.3) H 04/24/25 18:01 RDW Coeff of Linda 21.2 % (11.5-14.5) H 04/24/25 18:01 Plt Count 267 K/uL (130-400) 04/24/25 18:01 MPV 11.6 fL (9.4-12.4) 04/24/25 18:01 Immature Gran % (Auto) 0.4 % 04/24/25 18:01 Neut % (Auto) 84.9 % 04/24/25 18:01 Lymph % (Auto) 7.4 % 04/24/25 18:01 [place] % (Auto) 6.7 % 04/24/25 18:01 Eos % (Auto) 0.2 % 04/24/25 18:01 Baso % (Auto) 0.4 % 04/24/25 18:01 Neut # (Auto) 18.99 K/uL (1.40-6.50) H 04/24/25 18:01 Lymph # (Auto) 1.65 K/uL (1.20-3.40) 04/24/25 18:01 [place] # (Auto) 1.50 K/uL (0.11-0.59) H 04/24/25 18:01 Eos # (Auto) 0.04 K/uL (0.00-0.50) 04/24/25 18:01 Baso # (Auto) 0.08 K/uL (0.00-0.20) 04/24/25 18: Immature Gran # (Auto) 0.10 K/uL (0.01-0.20) 04/24/25 18:01 Absolute Nucleated RBC 0.06 K/uL (0.00-0.12) 04/24/25 18:01 Nucleated RBC % (auto) 0.3 % 04/24/25 18:01 Anisocytosis Present 04/24/25 18:01 Ovalocytes 1+ 04/24/25 18:01 Sodium 131 mmol/L (136-145) L 04/24/25 18:01 Potassium 4.9 mmol/L (3.5-5.1) 04/24/25 18:01 Chloride 98 mmol/L (98-107) 04/24/25 18:01 Carbon Dioxide 26 mmol/L (21-32) 04/24/25 18:01 Anion Gap 7 (3-11) 04/24/25 18: BUN 30 mg/dl (6-23) H 04/24/25 18: Creatinine 1.39 mg/dl (0.6-1.4) 04/24/25 18: Est Cr Clr Drug Dosing 46.6 ml/min 04/24/25 18: eGFR 51.89 04/24/25 18: BUN/Creatinine Ratio 21.6 (10-20) H 04/24/25 18: Glucose 371 mg/dl (70-99(Fasting)) H* 04/24/25 18: POC Glucose 159 mg/dl (70-99) H 04/24/25 20:30 Calcium 9.0 mg/dl (8.6-10.3) 04/24/25 18: Magnesium 1.4 mg/dl (1.7-2.4) L 04/24/25 18: Total Bilirubin 2.2 mg/dl (0.2-1.0) H 04/24/25 18: AST 13 U/L (13-39) 04/24/25 18: ALT 12 U/L (7-52) 04/24/25 18: Alkaline Phosphatase 122 U/L (34-104) H 04/24/25 18: Total Protein 8.3 gm/dl (6.0-8.3) 04/24/25 18: Albumin 4.4 gm/dl (3.4-5.0) 04/24/25 18: Globulin 3.9 gm/dl (2.5-4.0) 04/24/25 18: Albumin/Globulin Ratio 1.1 (0.9-2) 04/24/25 18: TSH 0.840 uIu/ml (0.300-4.500) 04/24/25 18: Urine Color Yellow 04/24/25 18: Urine Appearance Clear (Clear) 04/24/25 18: Urine pH 5.5 (4.5-7.5) 04/24/25 18: Ur Specific [place] 1.023 (1.000-1.030) 04/24/25 18:01 Urine Protein Trace (Negative) H 04/24/25 18: Urine Glucose (UA) 3+ (Negative) H 04/24/25 18:01 Urine Ketones Negative (Negative) 04/24/25 18:01 Urine Blood Negative (Negative) 04/24/25 18:01 Urine Nitrite Negative (Negative) 04/24/25 18:01 Urine Bilirubin Negative (Negative) 04/24/25 18:01 Urine Urobilinogen Negative (Negative) 04/24/25 18:01 Ur Leukocyte Esterase Negative (Negative) 04/24/25 18:01 Urine WBC (Auto) 0-5 /hpf (0-5) 04/24/25 18:01 Urine RBC (Auto) 0-2 /hpf (0-2) 04/24/25 18:01 U Hyaline Cast (Auto) 0-2 /lpf (0-2) 04/24/25 18:01 U Epithel Cells (Auto) 0-2 /hpf (0-2) 04/24/25 18:01 Urine Bacteria (Auto) None Seen (None Seen) 04/24/25 18:01 Urine Comment 04/24/25 18:01 Impressions Chest X-Ray 04/24/25 17:48 Chest radiograph, one view History: Weakness Comparison: 12/17/2024 Findings: Single AP view of the chest performed. No focal consolidation or pleural effusion. Left chest wall 3-lead AICD. There are median sternotomy wires. No pneumothorax. The cardiomediastinal silhouette is within normal limits. Normal pulmonary vascularity. No evidence for lymphadenopathy. No visualized bony or soft tissue abnormality. Impression: Normal chest radiograph Electronically signed by Sanjiv Sheets 04-24-2025 7:[address] 04/24/25 17:48 Clinical History: Confusion. Technique: Axial computed tomography images were obtained of the brain from the vertex to the skull base without intravenous contrast. Findings: There is no sign of intracranial hemorrhage. There is normal gibbs-white matter differentiation with no sign of acute or old infarction. No midline shift or other form of herniation is identified. There is no hydrocephalus. No obvious mass lesion is seen on this noncontrast examination. There is near compete opacification of the right sphenoid sinus. The mastoid air cells appear clear Impression: 1. Sphenoid sinusitis 2. Otherwise unremarkable noncontrast CT of the brain ACT 112: Positive. There are findings on this exam that require communication between the performing entity and the patient following Patient Test Result Information Act ([place] ACT 112) guidelines. Electronically signed by Tashi Bob 04-24-2025 7:08 PM Code Status & VTE Plan VTE Prophylaxis Plan VTE Prophylaxis will be ordered: Yes PG Care Time/CCT Total # of Minutes Spent Total Time Spent with Patient: Total time spent is greater than 50% in coordination of care (as documented) at patient's floor/unit and/or counseling patient: Coding Level of Care Code 38838 INT INP/OBS CARE 3/75MIN Diagnoses Diabetes mellitus, type 2 E11.9 Confusion R41.0 Myelodysplasia (myelodysplastic syndrome) D46.9 CAD, multiple vessel I25.10 Asthma with COPD J44.9 HTN (hypertension), benign I10
[2025-04-24] MEDS ORDERED: ALBUTEROL HFA 8 GM INHALER INH PRN (21:41)
[2025-04-24] MEDS ORDERED: CARBOHYDRATES FOR HYPOGLYCEMIA PO PRN (21:41)
[2025-04-24] MEDS ORDERED: GLUCOSE 10 TAB/TUBE PO PRN (21:41)
[2025-04-24] MEDS ORDERED: GLUCOSE 40% GEL 15 GM TUBE PO PRN (21:41)
[2025-04-24] MEDS ORDERED: DEXTROSE 50% 50 ML SYRINGE IV PRN (21:41)
[2025-04-24] MEDS ORDERED: GLUCAGON FOR INJ 1 MG VIAL SQ PRN (21:41)
[2025-04-24] MEDS ORDERED: ONDANSETRON INJ 2 MG/ML 2 ML VIAL IV PRN (21:41)
[2025-04-24] MEDS: HALOPERIDOL LACTATE 5 MG/ML 1 ML VIAL IM STA (21:56)
[2025-04-24] MEDS: MEMANTINE HCL 5 MG TAB PO SCH (22:26)
[2025-04-24] MEDS: busPIRone 15 MG TAB PO SCH (22:27)
[2025-04-24] MEDS: ATORVASTATIN 40 MG TAB PO SCH (22:28)
[2025-04-24] MEDS: DICLOFENAC SOD 1% GEL 100 GM TUBE EXT SCH (22:28)
[2025-04-24] MEDS: lamoTRIgine 100 MG TAB PO SCH (22:28)
[2025-04-24] MEDS: ENOXAPARIN INJ 40 MG/0.4 ML SYR SQ SCH (22:29)
[2025-04-24] MEDS: ACETAMINOPHEN 500 MG TAB PO SCH (22:33)
[2025-04-24] MEDS: INSULIN ASPART PER UNIT CHARGE SC SCH (22:37)
[2025-04-24] MEDS: LANTUS PER UNIT CHARGE SQ SCH (22:45)
[2025-04-24] MEDS: cefTRIAXone SODIUM 2,000 MG/50 ML BAG IV SCH (23:21)
[2025-04-25] MEDS: MELATONIN 3 MG TAB PO PRN (02:05)
[2025-04-25] MEDS: DONEPEZIL HCL 10 MG TAB PO SCH (07:59)
[2025-04-25] MEDS: FINASTERIDE 5 MG TAB PO SCH (07:59)
[2025-04-25] MEDS: CLOPIDOGREL BISULFATE 75 MG TAB PO SCH (07:59)
[2025-04-25] MEDS: ASPIRIN 81 MG CHEW PO SCH (07:59)
[2025-04-25] MEDS: FLUTICASONE FUROATE 200MCG 14 PUFFS/INHALER INH SCH (08:00)
[2025-04-25] MEDS: UMECLIDINIUM/VILANTEROL 62.5/25MCG 7 PUFFS/INHALER INH SCH (08:00)
[2025-04-25 08:56] LABS: Hematocrit (blood only) 26.0 % (42.0-52.0); Hemoglobin 8.4 g/dl (14.0-18.0); Mean Corpuscular Hemoglobin 31.3 pg (25.0-34.0); Mean Corpuscular Volume 97.0 fL (80.0-100.0); Platelet Count 220 K/uL (130-400); RDW Standard Deviation 75.2 fL (36.4-46.3); Red Blood Count 2.68 M/uL (4.70-6.10); White Blood Count 16.15 K/ul (4.8-10.8)
[2025-04-25] MEDS ORDERED: NON-FORMULARY MEDICATION (Fluticasone-Umeclidin-Vilanter [Trelegy Ellipta] 200-62.5-25 mcg INH SCH (09:00)
[2025-04-25 09:01] LABS: Hemoglobin A1C 10.0 % (4.5-5.6)
[2025-04-25 09:14] LABS: Alanine Aminotransferase 9.0 U/L (7-52); Alkaline Phosphatase 89.0 U/L (34-104); Anion Gap 4.0 (3-11); Bilirubin,Total 1.8 mg/dl (0.2-1.0); Blood Urea Nitrogen 24.0 mg/dl (6-23); Calcium 8.5 mg/dl (8.6-10.3); Carbon Dioxide 28.0 mmol/L (21-32); Chloride 105.0 mmol/L (98-107); Creatinine Clr Calc Pharmacy 58.9 ml/min; Glucose 146.0 mg/dl (70-99(Fasting)); Potassium 4.4 mmol/L (3.5-5.1); Sodium 137.0 mmol/L (136-145); Total Protein 6.9 gm/dl (6.0-8.3)
--- NOTE | 2025-04-25 10:29 | Hospitalist Progress Note ---
Date of Service April 25, 2025 Assessment & Plan (1) Diabetes mellitus, type 2: (2) Confusion: (3) Myelodysplasia (myelodysplastic syndrome): (4) CAD, multiple vessel: (5) Asthma with COPD: (6) HTN (hypertension), benign: Plan 79yo male with history of poorly controlled DM, CAD, HTN presenting with one day of worsening confusion and gait instability. Patient with hyperglycemia at home, reported to be in the 500's. Son states that patient is non-compliant with his home medications and has not taken his insulin for several weeks. His blood sugars are usually in the 300's but are more elevated today. #Diabetes with hyperglycemia - was not taking his insulin. Treated on admission with IVF, IV insulin. A1c 10 -[facility] Clarify whether he has standard meter at home. He says he does have his insulins -Lantus 10u BID, premeal/PRN aspart, glimepiride held -BG well controlled this morning, resume BG checks ACHS, diabetic diet #Acute toxic metabolic encephalopathy #Dementia - son reports that patient has underlying dementia. He has episodes of confusion but states that this has been the worse by far. Also has not experienced gait instability to this degree. Possibly secondary to underlying infection, medication non-adherence, hyperglycemia -hold Trazodone, Tramadol, Methocarbamol and Gabapentin for now -Management of hyperglycemia with insulin as above -Empiric Ceftriaxone -Delirium prevention strategies -Continue home Aricept, Namenda and Cymbalta -Continue Buspirone 30mg po TID -PT/OT eval #Possible infection - leukocytosis related to MDS but also has exacerbation of hyperglycemia and delirium -Abd US ordered for mild bilirubin elevation without abdominal pain. Reviewed past labs and he frequently has mild elevations, could be Gilbert's. Abd US notable only for mild steatosis. -right sphenoid sinusitis based on CT - denies any nasal/sinus/ear/face congestion or pain. unlikely to be acute sinusitis -no pulmonary symptoms and UA neg -Diarrhea - sent stool biofire and C. diff ---> positive C. diff gene and toxin A. Start oral vancomycin. Stop ceftriaxone. Contact isolation. Biofire negative. Further history from his son - he does have chronic bouts of diarrhea for years - an IBS type picture. He did have antibiotics recently, notably when hospitalized for pneumonia this spring. #PTSD and Memory issues - patient follows with Dr. Tyalor at the [facility] -Continue Donepezil and Memantine -Continue Buspirone and Duloxetine -Continue Lamictal #CAD - multivessel disease, hx stent, TAVR? pacemaker. stable -Continue home dose of ASA 40.5mg daily and Plavix 75mg po daily -Continue Atorvastatin 40mg po qHS -Continue Carvedilol 3.125mg po BID #COPD/Asthma - mild cough, patient denies SOB or wheeze -Continue Trelegy or formulary equivalent -Continue Albuterol #BPH -Continue Finasteride 5mg po daily -Bladder scan as needed CKD 3 - Cr stable at 1.1 hyponatremia - resolved after IV fluids, Na normal today hypomagnesemia - got po mag probably not effective enough. Check mag and give empiric 2g IV. Resulted mag 1.5 Ppx - History of VTE, Lovenox Code - DNR/DNI PT/OT I updated his son Jarocho by phone Admission and Anticipated Discharge Date Admission Date: April 24, 2025 Subjective Feels much better and wants to go home Having large amounts of green watery diarrhea this morning - no abdominal pain, says "this happens all the time when I don't eat" [facility] has not been sending his ramiro patches regularly, he plans to call them today Didn't get a straight answer when I asked whether he has a standard BG meter at home Physical Exam 2 Physical Exam: Last 24h vitals reviewed GEN: sitting EOB eating HEENT: pupils equal, sclerae anicteric, moist MM RESP: normal WOB, CTAB CV: reg no mrg ABD: soft/nt/nd +BT : no kendall SKIN: warm and dry, no generalized rashes NEURO: AOx person, place, and basic situation. Impulsive. Face symmetric, speech normal, moves 4 ext spontaneously and equally Results & Data Results & Data Vital Signs (Past 12 Hours) Vital Signs Temp Pulse Resp BP Pulse Ox O2 Del Method 04/25/25 07:25 36.7 C 90 18 119/67 94 Room Air Laboratory Results 04/25/25 08:29 04/25/25 08:29 LFT normal except Bili 2.2 --> 1.8 TSH 0.8 A1c 10 UA negative PG Care Time/CCT Total # of Minutes Spent Total Time Spent with Patient: Total time spent is greater than 50% in coordination of care (as documented) at patient's floor/unit and/or counseling patient: Coding Level of Care Code 94749 SUB INP/OBS CARE 3/50MIN Diagnoses Diabetes mellitus, type 2 E11.9 Confusion R41.0 Myelodysplasia (myelodysplastic syndrome) D46.9 CAD, multiple vessel I25.10 Asthma with COPD J44.9 HTN (hypertension), benign I10
--- NOTE | 2025-04-25 10:33 | Ultrasound Report ---
US liver CLINICAL HISTORY: abnormal LFTs COMPARISON STUDY: CT of the abdomen and pelvis May 05, 2020. FINDINGS: There is no biliary ductal dilatation status post cholecystectomy. The common bile duct rudy sures 4 mm in caliber. No hepatic lesions are identified. Hepatic echogenicity is mildly increased. T he pancreas is obscured by bowel gas. There is no right hydronephrosis. IMPRESSION: 1. No biliary ductal dilatation status post cholecystectomy. 2. Increased hepatic echogenicity suggestive of mild hepatic steatosis. 3. Obscured pancreas. ACT 112: Negative or not required by law. Electronically signed by: Duncan Fosneca M.D. 04/25/2025 10:31 AM
[2025-04-25] MEDS: MAGNESIUM SULFATE / D5W 1 GM/100 ML BAG IV SCH (11:07)
[2025-04-25] MEDS: LOPERAMIDE HCL 2 MG CAP PO PRN (11:12)
[2025-04-25 11:36] LABS: Magnesium 1.5 mg/dl (1.7-2.4)
[2025-04-25 13:41] LABS: Adenovirus F 40/41 PCR Not Detected (NotDetected); Campylobacter PCR Not Detected (NotDetected); Enteroaggregative E.coli(EAEC) Not Detected (NotDetected); Shiga-like Toxin E.coli (STEC) Not Detected (NotDetected); Vibrio species PCR Not Detected (NotDetected)
[2025-04-25 14:12] LABS: Cdiff Toxin B Gene (2yr or >) Positive Cdiff Gene (Neg)
[2025-04-25 14:21] LABS: Cdiff Toxin A+B Positive Cdiff Toxin (Negative)
[2025-04-25] MEDS: LACTATED RINGER'S 1,000 ML IV SCH (16:21)
[2025-04-25] MEDS: ADVANCED PROBIOTIC 625 MG CAPSULE PO SCH (16:52)
[2025-04-25] MEDS: CHERRY SYRUP 5 ML UDP PO SCH (17:10)
[2025-04-25] MEDS: VANCOMYCIN HCL 125 MG/2.5ML SOLN PO SCH (17:10)
[2025-04-25] MEDS: LATANOPROST 0.005% OP SOLN 2.5 ML BTL OP SCH (20:57)
[2025-04-25] MEDS: LANTUS PER UNIT CHARGE SQ SCH (20:59)
[2025-04-26 09:10] LABS: Hematocrit (blood only) 26.9 % (42.0-52.0); Hemoglobin 9.0 g/dl (14.0-18.0); Mean Corpuscular Hemoglobin 32.4 pg (25.0-34.0); Mean Corpuscular Volume 96.8 fL (80.0-100.0); Platelet Count 251 K/uL (130-400); RDW Standard Deviation 73.9 fL (36.4-46.3); Red Blood Count 2.78 M/uL (4.70-6.10); White Blood Count 19.02 K/ul (4.8-10.8)
[2025-04-26 09:24] LABS: Anion Gap 7.0 (3-11); Blood Urea Nitrogen 17.0 mg/dl (6-23); Calcium 8.9 mg/dl (8.6-10.3); Carbon Dioxide 26.0 mmol/L (21-32); Chloride 102.0 mmol/L (98-107); Creatinine Clr Calc Pharmacy 63.6 ml/min; Glucose 282.0 mg/dl (70-99(Fasting)); Magnesium 1.6 mg/dl (1.7-2.4); Potassium 4.3 mmol/L (3.5-5.1); Sodium 135.0 mmol/L (136-145)
[2025-04-26] MEDS: MAGNESIUM SULFATE / D5W 1 GM/100 ML BAG IV SCH (11:15)
--- NOTE | 2025-04-26 17:09 | Hospitalist Progress Note ---
Date of Service April 26, 2025 Assessment & Plan (1) Diabetes mellitus, type 2: (2) Confusion: (3) Myelodysplasia (myelodysplastic syndrome): (4) CAD, multiple vessel: (5) Asthma with COPD: (6) HTN (hypertension), benign: Plan 79yo male with history of poorly controlled DM, CAD, HTN presenting with one day of worsening confusion and gait instability. Patient with hyperglycemia at home, reported to be in the 500's. Son states that patient is non-compliant with his home medications and has not taken his insulin for several weeks. His blood sugars are usually in the 300's but are more elevated today. #Clostridium difficile associated diarrhea - precipitant of the encephalopathy and severe hyperglycemia -continue oral vancomycin x 10d and probiotic -no diarrhea today, possibly home tomorrow #Diabetes with hyperglycemia - was not taking his insulin. Treated on admission with IVF, IV insulin. A1c 10 -[facility] Clarify whether he has standard meter at home. He says he does have his insulins -Lantus 20u qPM, premeal/PRN aspart, glimepiride held -BG above goal this AM - increase glargine 20% #Acute toxic metabolic encephalopathy #Dementia - son reports that patient has underlying dementia. He has episodes of confusion but states that this has been the worse by far. Also has not experienced gait instability to this degree. Possibly secondary to underlying infection, medication non-adherence, hyperglycemia -hold Trazodone, Tramadol, Methocarbamol and Gabapentin for now -Continue home Aricept, Namenda and Cymbalta -Continue Buspirone 30mg po TID -improved and is probably back to baseline based on my conversation with his son afternoon of 04/25 #PTSD and Memory issues - patient follows with Dr. Taylor at the [facility] -Continue Donepezil and Memantine -Continue Buspirone and Duloxetine -Continue Lamictal #CAD - multivessel disease, hx stent, TAVR? pacemaker. stable -Continue home dose of ASA 40.5mg daily and Plavix 75mg po daily -Continue Atorvastatin 40mg po qHS -Continue Carvedilol 3.125mg po BID #COPD/Asthma - mild cough, patient denies SOB or wheeze -Continue Trelegy or formulary equivalent -Continue Albuterol #BPH -Continue Finasteride 5mg po daily -Bladder scan as needed CKD 3 - Cr stable at 1.1 hyponatremia - resolved after IV fluids hypomagnesemia - mag 1.6 gave additional 2g IV Ppx - History of VTE, Lovenox Code - DNR/DNI PT/OT I updated his son Jarocho by phone afternoon of 04/25 Admission and Anticipated Discharge Date Admission Date: April 24, 2025 Subjective Wants to go home No diarrhea since yesterday afternoon, eating and denies abdominal pain Physical Exam 2 Physical Exam: Last 24h vitals reviewed GEN: sitting EOB working with OT HEENT: pupils equal, sclerae anicteric, moist MM RESP: normal WOB CV: ABD: : no kendall SKIN: warm and dry, no generalized rashes NEURO: AOx person, place, and basic situation. Impulsive. Face symmetric, speech normal, moves 4 ext spontaneously and equally Results & Data Results & Data Vital Signs (Past 12 Hours) Vital Signs Temp Pulse Resp BP Pulse Ox O2 Del Method 04/26/25 07:55 36.8 C 99 H 18 146/87 H 94 Room Air 04/26/25 07:05 Room Air Laboratory Results 04/26/25 08:40 04/26/25 08:40 Mag 1,6 PG Care Time/CCT Total # of Minutes Spent Total Time Spent with Patient: Total time spent is greater than 50% in coordination of care (as documented) at patient's floor/unit and/or counseling patient: Coding Level of Care Code 75482 SUB INP/OBS CARE 2/35MIN Diagnoses Diabetes mellitus, type 2 E11.9 Confusion R41.0 Myelodysplasia (myelodysplastic syndrome) D46.9 CAD, multiple vessel I25.10 Asthma with COPD J44.9 HTN (hypertension), benign I10
[2025-04-26 20:31] VITALS: O2SAT 96
[2025-04-26] MEDS: LANTUS PER UNIT CHARGE SQ SCH (21:51)
[2025-04-27 06:19] LABS: Hematocrit (blood only) 26.6 % (42.0-52.0); Hemoglobin 8.9 g/dl (14.0-18.0); Mean Corpuscular Hemoglobin 32.2 pg (25.0-34.0); Mean Corpuscular Volume 96.4 fL (80.0-100.0); Platelet Count 282 K/uL (130-400); RDW Standard Deviation 72.3 fL (36.4-46.3); Red Blood Count 2.76 M/uL (4.70-6.10); White Blood Count 13.68 K/ul (4.8-10.8)
[2025-04-27 06:55] LABS: Anion Gap 8.0 (3-11); Blood Urea Nitrogen 14.0 mg/dl (6-23); Calcium 9.1 mg/dl (8.6-10.3); Carbon Dioxide 27.0 mmol/L (21-32); Chloride 102.0 mmol/L (98-107); Creatinine Clr Calc Pharmacy 70.5 ml/min; Glucose 142.0 mg/dl (70-99(Fasting)); Magnesium 1.9 mg/dl (1.7-2.4); Potassium 4.1 mmol/L (3.5-5.1); Sodium 137.0 mmol/L (136-145)
[2025-04-27 07:54] VITALS: BP 173/102; RESP 16; TEMP 97.7
--- NOTE | 2025-04-27 09:46 | Discharge Summary ---
Discharge Summary Date of Service April 27, 2025 Principal Dx & Hospital Course #1 = Principal Diagnosis (1) Clostridium difficile diarrhea: (2) Acute encephalopathy: (3) Acute hyperglycemia: (4) Diabetes mellitus, type 2: (5) Myelodysplasia (myelodysplastic syndrome): (6) MDS (myelodysplastic syndrome): (7) Stage 3b chronic kidney disease: (8) COPD (chronic obstructive pulmonary disease): Plan 79yo male with history of poorly controlled DM, CAD, HTN presenting with one day of worsening confusion and gait instability. Patient with hyperglycemia at home, reported to be in the 500's. Son states that patient is non-compliant with his home medications and has not taken his insulin for several weeks. His blood sugars are usually in the 300's but are more elevated today. He had altered mental status in ED and BG severely elevated, treated with IVF and IV insulin. Had some empiric ceftriaxone. Following day had severe diarrhea and testing was positive for C. diff. Treated with oral vancomycin and diarrhea resolved, mental status back at baseline. Able to return home. #Clostridium difficile associated diarrhea - precipitant of the encephalopathy and severe hyperglycemia -continue oral vancomycin x 10d and probiotic #Diabetes with hyperglycemia - was not taking his insulin. Treated on admission with IVF, IV insulin. A1c 10 -counseled to use his insulin and standard glucometer until he [facility] #Acute toxic metabolic encephalopathy #Dementia - son reports that patient has underlying dementia. He has episodes of confusion but states that this has been the worse by far. Also has not experienced gait instability to this degree. Possibly secondary to underlying infection, medication non-adherence, hyperglycemia, polypharmacy -Continue home Aricept, Namenda and Cymbalta -Continue Buspirone 30mg po TID -improved and is back to baseline -continue holding Trazodone, Tramadol, Methocarbamol and especially Gabapentin at discharge - no pain in the hospital without any of these meds. Discontinue if practicable. Discussed with his son as well. #PTSD and Memory issues - patient follows with Dr. Taylor at the [facility] -Continue Donepezil and Memantine -Continue Buspirone and Duloxetine -Continue Lamictal #CAD - multivessel disease, hx stent, TAVR? pacemaker. stable -Continue home dose of ASA 40.5mg daily and Plavix 75mg po daily -Continue Atorvastatin 40mg po qHS -Continue Carvedilol 3.125mg po BID -stable #COPD/Asthma - mild cough, patient denies SOB or wheeze. stable -Continue Trelegy or formulary equivalent -Continue Albuterol #BPH -Continue Finasteride 5mg po daily CKD 3 - Cr stable at 1.1 hyponatremia - resolved after IV fluids hypomagnesemia - replaced I updated his son Jarocho by phone day of discharge Admission HPI Per Admitting Provider Chencho Wright is a 79yo male with history of COPD, DM, myelodysplastic syndrome, HTN and HLP presenting from home with one day of progressive confusion. Patient's son and are at bedside and present history. Patient states that he feels fine and does not want to be in the hospital. Over the last day patient has been experiencing more confusion, possible hallucinations. His son states that he is telling stories that aren't true - said that he went out turkey hunting yesterday and then played golf with his family (which he did not). No report of fever, chills, KULKARNI, chest pain, SOB, nausea, vomiting, diarrhea or constipation. reports that he has had a slight dry cough. Also with worsening gait instability but otherwise no complaints. Patient is not compliant with his medications. Son states that he takes however much insulin he thinks he needs. [facility] have not [facility] him a replacement Ramiro for the last month. Son does not think he has taken his insulin for the last month. No report of hypoglycemia. In the ER he is afebrile, elevated HR at 101, Blood pressure stable, adequate oxygenation on room air Patient did become somewhat agitated on several occasions, asking to leave the hospital Was a CODE TAY upon arrival to the floor room 301-1 - Haldol 5mg IM given ER Course: NSS x 2L Insulin 5u IV Magnesium 800mg PO Haldol 5mg IM Discharge Exam Last 24h vitals reviewed GEN: lying in bed, street clothes HEENT: pupils equal, sclerae anicteric, moist MM RESP: normal WOB, CTAB CV: reg no mrg ABD: s/nt/nd : no kendall SKIN: warm and dry, no generalized rashes NEURO: AOx person, place, and situation. Memory better and no longer irascible and impulsive. Face symmetric, speech normal, moves 4 ext spontaneously and equally Discharge Plan Discharge Items Patient Disposition: Home - Self-Care Reason For Visit: HYPERGLYCEMIA, CONFUSION Discharge Diagnosis: Clostridium difficile associated diarrhea, acute metabolic encephalopathy, hyperglycemia Condition on Discharge: Good Activity: Resume your previous activity Non-emergency contact: Primary Care Provider Call non-emergency contact if: you have any medication questions, your symptoms worsen and you have a fever Follow-up/Referrals: Leandro Rodrigues MD [Primary Care Provider] - 05/04/25 11:30 am Diet: Carb Consistent or DM2 Addtl Attending Provider Instructions: You were treated for "C. diff" this is an infection which causes diarrhea and can make you very ill. Its associated with previous antibiotic treatment. This infection caused the extremely high blood sugar and the confusion, the combination of many of your medications are also contributing to confusion The diarrhea infection needs to be treated with oral vancomycin, a special antibiotic for 10 days. Its a good idea to take a probiotic for a month at least - available in the drug store Seek medical attention if you have worsening diarrhea especially with abdominal pain or fever C. diff can recur despite treatment - get checked for C. diff if you have significant recurrent diarrhea in the next 12 months especially. You'll also need prophylaxis dose oral vancomycin if you have to take a different antibiotic for something else in the next 6-12 months, or the C. diff can recur. Please resume your insulins and make sure that [facility] delivers your Ramiro sensors. Use a regular glucose meter in the meantime. Please try to hold or stop the following medications which especially can contribute to confusion and increase the risk of falls: gabapentin, trazodone, methocarbamol, trazodone We have been holding all these meds in the hospital and you seem to be doing fine without them. It was a pleasure taking care of you in the hospital, Deneen Stuart MD Pending Studies at Discharge: No Stand-Alone Forms: My [employer], Smoking Cessation Medications and DC Order Prescriptions: New vancomycin 125 mg capsule 125 mg PO Q6H 10 Days Qty: 40 0RF Continued aspirin 81 mg tablet,delayed release (DR/EC) 40.5 mg PO DAILY Patient Comments: PER DAUGHTER-HE TAKES 1/2 TAB DAILY. CONFIRMED ON 12/19/24 ondansetron HCl 4 mg tablet 4 mg PO BID PRN (Reason: Nausea) Patient Comments: CONFIRMED W/ DAUGHTER THAT HE STILL HAS-USES PRN. 12/19/24 insulin glargine [Lantus U-100 Insulin] 100 unit/mL solution 20 unit subcut QPM Qty: 10 0RF Rx Instructions: PER DAUGHTER-HE ADJUSTS HIS DOSE PENDING ON HIS BSGS. 12/19/24 pantoprazole 40 mg tablet,delayed release (DR/EC) 40 mg PO DAILY Patient Comments: PER DAUGHTER-HE IS STILL TAKING BID. 12/19/24 memantine 5 mg tablet 5 mg PO BID Qty: 180 3RF (DME) [employer] Ramiro 3 Plus Sensor Device See Rx Instructions .ROUTE Qty: 1 0RF Rx Instructions: As directed nitroglycerin [Nitrostat] 0.4 mg tablet, sublingual 0.4 mg Sublingual Q5M PRN (Reason: Chest Pain) Qty: 30 5RF Rx Instructions: place 1 tab under the tongue every 5 min. for up to 3 doses as needed for chest pain call 911 if pain persists cetirizine 10 mg tablet 10 mg PO DAILY PRN (Reason: allergy symptoms) Qty: 30 0RF albuterol sulfate 90 mcg/actuation HFA aerosol inhaler 2 puff INHALATION Q4H PRN (Reason: Shortness Of Breath Or Wheezing) Qty: 8.5 2RF duloxetine 60 mg capsule,delayed release(DR/EC) 60 mg PO BID Qty: 180 3RF clopidogrel 75 mg tablet 75 mg PO DAILY Trelegy Ellipta 200-62.5-25 mcg blister with device 1 inh inhalation DAILY Qty: 60 2RF Hold Instructions: Resume on 12/25/24. diclofenac sodium 1 % gel 2 g topical QID Rx Instructions: apply to single elbow, wrist or hand; for hand includes palm/fingers/back of hand ferrous gluconate 324 mg (37.5 mg iron) tablet 324 mg PO DAILY Qty: 30 5RF buspirone 30 mg Tablet 30 mg PO TID finasteride 5 mg Tablet 5 mg PO QAM epinephrine [EpiPen] 0.3 mg/0.3 mL Auto-Injector 0.3 mg IM Q3H PRN (Reason: Allergy Symptoms) lamotrigine 200 mg Tablet 200 mg PO HS atorvastatin [Lipitor] 40 mg Tablet 40 mg PO HS donepezil 10 mg Tablet 10 mg PO QAM carvedilol 3.125 mg tablet 3.125 mg PO BID Hold Instructions: Resume on 06/21/24. held for orthostatic hypotension, resume when BP tolerates Rx Instructions: must administer with a meal/food mupirocin 2 % ointment 1 applic topical TID Qty: 15 0RF Rx Instructions: Apply a thin layer to the affected area 3 times daily. The area may be covered with gauze dressing. Continue for 1-2 weeks. timolol maleate (PF) 0.5 % Dropperette 1 drp OPHTHALMIC (EYE) HS glimepiride 1 mg tablet 2 mg PO BID latanoprost 0.005 % Drops 1 drp ophthalmic (eye) QAM Qty: 0 0RF Held acetaminophen [Acetaminophen Extra Strength] 500 mg tablet 500 - 1,000 mg PO Q6H PRN (Reason: PAIN/FEVER) Hold Instructions: try to stop - not given in the hospital Patient Comments: CONFIRMED [facility] MED LIST AND W/ PT'S ON 06/02/24 gabapentin 800 mg tablet 800 mg PO TID Qty: 270 3RF Hold Instructions: try to stop, see if symptoms worse methocarbamol 750 mg tablet 750 mg PO TID PRN (Reason: muscle spasm) Qty: 90 5RF Hold Instructions: try to stop tramadol 50 mg tablet 50 mg PO QID PRN (Reason: pain) Qty: 120 0RF Hold Instructions: try to stop trazodone 50 mg tablet 50 mg PO HS Hold Instructions: try to stop or decrease to 1/2 tab Discharge Orders: Discharge Order (Routine); Ordered 04/27/25 Ordered By: Deneen Stuart Admission Data Admit Date/Time: 04/24/25 20:12 Attending Provider: Deneen Stuart Admit Provider: Martha Rivers Primary Care Provider: Leandro Rodrigues Other Providers: Martha Rivers; [facility] Other Interventions: Discharge Summary Assessment (RN) Last Done: 04/27/25 12:18 Hospital Stay Data Consultations 04/24/25 19:11 ED Decision to Admit Stat Diagnostic Imagining Performed 04/24/25 17:48 CT head/brain wo con Stat 04/25/25 US liver Urgent Pending Results Patient Have Any Pending Studies at Discharge: No Discharge Instructions Given to Patient (Per Discharging Provider) You were treated for "C. diff" this is an infection which causes diarrhea and can make you very ill. Its associated with previous antibiotic treatment. This infection caused the extremely high blood sugar and the confusion, the combination of many of your medications are also contributing to confusion The diarrhea infection needs to be treated with oral vancomycin, a special antibiotic for 10 days. Its a good idea to take a probiotic for a month at least - available in the drug store Seek medical attention if you have worsening diarrhea especially with abdominal pain or fever C. diff can recur despite treatment - get checked for C. diff if you have significant recurrent diarrhea in the next 12 months especially. You'll also need prophylaxis dose oral vancomycin if you have to take a different antibiotic for something else in the next 6-12 months, or the C. diff can recur. Please resume your insulins and make sure that [facility] delivers your Ramiro sensors. Use a regular glucose meter in the meantime. Please try to hold or stop the following medications which especially can contribute to confusion and increase the risk of falls: gabapentin, trazodone, methocarbamol, trazodone We have been holding all these meds in the hospital and you seem to be doing fine without them. It was a pleasure taking care of you in the hospital, Deneen Stuart MD Total Time Total Time Spent Total Time Spent (In Minutes): I personally spent: 45 minutes today on clinical care activities including: reviewing chart notes and vital signs reviewing labs examining and counseling the patient counseling the patient's family writing prescriptions, discharge instructions documentation Coding Level of Care Code 47240 INP/OBS DISCH >30 MIN Diagnoses Clostridium difficile diarrhea A04.72 Acute encephalopathy G93.40 Acute hyperglycemia R73.9 Diabetes mellitus, type 2 E11.9 Myelodysplasia (myelodysplastic syndrome) D46.9 Stage 3b chronic kidney disease N18.32 COPD (chronic obstructive pulmonary disease) J44.9
[2025-04-27 12:20] VITALS: PULSE 101
--- NOTE | 2025-04-28 08:07 | Electrocardiogram Report ---
Test Reason : Blood Pressure : */* mmHG Vent. Rate : 99 BPM Atrial Rate : 99 BPM P-R Int : 120 ms QRS Dur : 134 ms QT Int : 382 ms P-R-T Axes : * 164 -13 degrees QTcB Int : 490 ms Sinus rhythm with Premature atrial complexes Ventricular paced rhythm Abnormal ECG When compared with ECG of 18-Dec-2024 01:22, Sinus rhythm has replaced Electronic atrial pacemaker Vent. rate has increased by 34 bpm Confirmed by Judd Hood ([id number]) on 04/28/2025 8:07:45 AM Referred By: REFERRED SELF Confirmed By: Judd Hood
== END 2025-04-27 13:01 | disposition home or self-care (01) | DRG 637 ==
LOC: ED 17:20 → 3E 20:12 → SUATTDRO 20:12 → 3E 21:11 → 3W 22:11